=== PATIENT | male | born 1965 | race American Indian/Alaskan Native ===

== ENCOUNTER 2016-11-07 01:53 | Inpatient (IN) | payer OTHER ==
[2016-11-07 02:02] VITALS: BMI 19.3
[2016-11-07] MEDS ORDERED: Sodium Chloride 0.9% 1,000 ML IV STA ×3 (02:04→07:24)
[2016-11-07] MEDS ORDERED: Pantoprazole 40 MG in Sodium Chloride 0.9% 100 ML IV STA (02:04)
[2016-11-07] MEDS ORDERED: Morphine 4 mg/ml ISec IVP STA ×2 (02:04→03:32)
--- NOTE | 2016-11-07 02:04 | ED PDOC ---
Arrival/HPI - General Time Seen by Provider: 11/07/16 01:57 Historian: Patient - History of Present Illness Narrative History of Present Illness (Text): 11/07/16 02:03 Rasta Delgado is a 50 year old male, whose past medical history includes pancreatitis, aortic dissection with repair, alcohol anuse, substance abuse, and hypertension, who presents to the ED complaining of LUQ abdominal pain for the past 3 days. Patient notes symptoms are consistent with previous episodes of pancreatitis and reports he last drank alcohol 3 days ago. Patient denies any fever, chills, chest pain, shortness of breath, nausea, vomiting, diarrhea, urinary symptoms, back pain, neck pain, headache, dizziness, or any other complaints. Time/Duration: < week (3 days) Symptom Onset: Gradual Symptom Course: Unchanged Activities at Onset: Rest, Light Context: Home Past Medical History - Provider Review Nursing Documentation Reviewed: Yes - Infectious Disease Hx of Infectious Diseases: None - Tetanus Immunization Tetanus Immunization: Unknown - Cardiac Hx Cardiac Disorders: Yes (AORTIC DISECTION) Hx Heart Murmur: Yes - Pulmonary Hx Respiratory Disorders: No Other/Comment: SMOKER - Neurological Hx Neurological Disorder: No - HEENT Hx HEENT Disorder: No - Renal Hx Renal Disorder: No - Endocrine/Metabolic Hx Endocrine Disorders: No - Hematological/Oncological Hx Blood Disorders: No Hx Cancer: No - Integumentary Hx Dermatological Disorder: No - Musculoskeletal/Rheumatological Hx Falls: No - Gastrointestinal Hx Pancreatitis: Yes - Genitourinary/Gynecological Hx Genitourinary Disorders: No - Psychiatric Hx Substance Use: Yes (HEROIN DAILY) - Past Surgical History Past Surgical History: No Previous - Surgical History Other/Comment: aneurysm in his chest December 2014 - Anesthesia Hx Anesthesia: Yes Hx Anesthesia Reactions: No - Suicidal Assessment Feels Threatened In Home Enviroment: No Family/Social History - Physician Review Nursing Documentation Reviewed: Yes Family/Social History: No Known Family HX Smoking Status: Heavy Smoker > 10 Cigarettes Daily Hx Alcohol Use: Yes (1 [place] DAILY) Hx Substance Use: Yes (HEROIN DAILY) Substance used: heroin Hx Substance Use Treatment: Yes Allergies/Home Meds Allergies/Adverse Reactions: Allergies No Known Allergies Allergy (Verified 08/31/15 18:29) Home Medications: Home Meds Medication Instructions Recorded Confirmed Folic Acid 1 mg PO DAILY 08/31/15 09/02/15 Review of Systems - Physician Review All systems were reviewed & negative as marked: Yes - Review of Systems Constitutional: Normal. absent: Fevers Eyes: Normal ENT: Normal Respiratory: Normal. absent: SOB, Cough Cardiovascular: Normal. absent: Chest Pain Gastrointestinal: Abdominal Pain Genitourinary Male: Normal. absent: Dysuria, Frequency, Hematuria, Urinary Output Changes Musculoskeletal: Normal. absent: Back Pain, Neck Pain Skin: Normal. absent: Rash Neurological: Normal. absent: Headache, Dizziness Endocrine: Normal Hemo/Lymphatic: Normal Psychiatric: Normal Physical Exam Vital Signs Reviewed: Yes Vital Signs Temp Pulse Resp BP Pulse Ox 11/07/16 09:38 98.2 F 97 H 18 153/84 H 98 11/07/16 05:53 107 H 17 145/70 97 11/07/16 02:04 98.6 F 102 H 20 146/47 L 95 Temperature: Afebrile Blood Pressure: Normal Pulse: Regular Respiratory Rate: Normal Appearance: Positive for: Well-Appearing, Non-Toxic, Comfortable Pain Distress: None Mental Status: Positive for: Alert and Oriented X 3 - Systems Exam Head: Present: Atraumatic, Normocephalic Pupils: Present: PERRL Extroacular Muscles: Present: EOMI Conjunctiva: Present: Normal Mouth: Present: Moist Mucous Membranes Neck: Present: Normal Range of Motion Respiratory/Chest: Present: Clear to Auscultation, Good Air Exchange. No: Respiratory Distress, Accessory Muscle Use Cardiovascular: Present: Regular Rate and Rhythm, Normal S1, S2. No: Murmurs Abdomen: Present: Tenderness (LUQ tenderness), Normal Bowel Sounds. No: Distention, Peritoneal Signs Back: Present: Normal Inspection Upper Extremity: Present: Normal Inspection. No: Cyanosis, Edema Lower Extremity: Present: Normal Inspection. No: Edema Neurological: Present: GCS=15, CN II-XII Intact, Speech Normal Skin: Present: Warm, Dry, Normal Color. No: Rashes Psychiatric: Present: Alert, Oriented x 3, Normal Insight, Normal Concentration Medical Decision Making ED Course and Treatment: 11/07/16 02:03 Impression: 50 year old male complaining of LUQ pain for 3 days. Plan: -- CT Abdomen and Pelvis w/o contrast -- EKG -- Labs, cardiac enzymes, amylase, lipase -- Urinalysis -- IV fluids -- Zofran -- Protonix -- Morphine -- Reassess and disposition Prior Visits: Notes and results from previous visits were reviewed. Progress Notes: 11/07/16 03:11 Reviewed labs, amylase: 313, lipase: 478. Reviewed radiology, CT Abdomen and Pelvis shows: 1. There has been a prior repair at the aortic root level of an ascending thoracic aortic aneurysm or dissection. 2. There is moderate perihepatic and mild perisplenic ascites. There is moderate pelvic ascites. This is abnormal although nonspecific. There is also mesenteric edema particularly in the left upper quadrant and near the splenic flexure of the colon. 3. Question mild rectal wall thickening versus underdistention. 4. There is wall thickening and pericolonic stranding and omental/mesenteric edema near the splenic flexure of the colon. This is most suggestive of a focal colitis. Please correlate clinically. 5. Abdominal aorta reveals moderate atherosclerotic calcification and there is a dissection of the mid and distal abdominal aorta which resolves at the level of the aortic bifurcation. This dissection begins below the takeoff of the superior mesenteric artery. This is most probably residual from 12/10/2014 at which time a type A aortic dissection involving the entire thoracic abdominal aorta was identified. Chronic residual dissection in the abdominal aorta was identified on 08/31/2015. 6. Additional incidental and/or chronic findings as described. 11/07/16 03:14 Case discussed with remote medical coder stone cutter, who is aware and agrees with plan. House doctor paged. 11/07/16 03:[address] Olsen, who is aware and agrees with plan. Accepts pt in to hospitalist service. Pt will go to [facility] observation for pancreatitis. Pt is no acute distress. Discussed results and hospital observation plan with pt , who is aware and verbalizes understanding. 11/07/16 03:45 Reviewed EKG, NSR at [address] bpm. Non-specific ST/T wave changes. 11/08/16 01:25 - Lab Interpretations Lab Results: 11/07/16 02:20 11/07/16 02:20 Lab Results 11/07/16 03:06: Procalcitonin 0.78 H 11/07/16 02:20: WBC 12.9 H D, RBC 4.71, Hgb 13.2 L, Hct 35.6 L, MCV 75.6 L, MCH 28.0, MCHC 37.1 H, RDW 16.1 H, Plt Count 302, MPV 9.4, Gran % 87.2 H, Lymph % ( Auto) 5.7 L, [place] % (Auto) 7.0 H, Eos % (Auto) 0.0 L, Baso % (Auto) 0.1, Gran # 11.25 H, Lymph # 0.7 L, [place] # 0.9 H, Eos # 0.0, Baso # 0.01, PT 13.9 H, INR 1.29 H, APTT 30.7, Sodium 131 L, Potassium 3.9, Chloride 85 L D, Carbon Dioxide 32, Anion Gap 18, BUN 12, Creatinine 0.7, Est GFR ( Amer) > 60, Est GFR ( Non-Af Amer) > 60, Random Glucose 151 H, Calcium 9.4, Total Bilirubin 1.1, AST 49, ALT 20, Alkaline Phosphatase 104, Lactate Dehydrogenase 558, Total Creatine Kinase 54, Troponin I 0.03 D, Total Protein 7.2, Albumin 3.3, Globulin 3.9, Albumin/Globulin Ratio 0.8 L, Amylase 313 H, Lipase 478 H I have reviewed the lab results: Yes - RAD Interpretation Narrative RAD Interpretations (Text): CT Abdomen and Pelvis shows: Lower thorax: There has been a prior repair at the aortic root level of an ascending thoracic aortic aneurysm or dissection. There is minimal bibasilar atelectasis. Visualized thoracic aorta is atherosclerotic and tortuous and mildly ectatic without brendan aneurysm. The visualized heart is not enlarged. ABDOMEN: Liver: There are no focal liver lesions present. Gallbladder and bile ducts: The gallbladder is contracted but otherwise normal. No calcified stones. No ductal dilation. Pancreas: The pancreas is normal. No ductal dilation. Spleen: The spleen is normal. Adrenals: The adrenal glands are normal. Kidneys and ureters: The kidneys are normal. No obstructing stones. No hydronephrosis. Stomach and bowel: Question mild rectal wall thickening versus underdistention. There is wall thickening and pericolonic stranding and omental/mesenteric edema near the splenic flexure of the colon. This is most suggestive of a focal colitis. Please correlate clinically. Stomach is decompressed. There is no evidence of intestinal obstruction. Appendix: No findings to suggest acute appendicitis. PELVIS: Bladder: Bladder is decompressed. No stones. Reproductive: The prostate gland and seminal vesicles are normal. ABDOMEN and PELVIS: Intraperitoneal space: There is moderate perihepatic and mild perisplenic ascites. There is moderate pelvic ascites. This is abnormal although nonspecific. There is also mesenteric edema particularly in the left upper quadrant and near the splenic flexure of the colon. There is no free intraperitoneal air. Bones/joints: There are sternal wires consistent with previous sternotomy incision. There are mild degenerative changes present. There is mild diffuse osteopenia. There is grade 2 anterolisthesis of L5 on S1 with bilateral spondylolyses. No acute fracture. No dislocation. Soft tissues: Unremarkable. Vasculature: Abdominal aorta reveals moderate atherosclerotic calcification and there is a dissection of the mid and distal abdominal aorta which resolves at the level of the aortic bifurcation. This dissection begins below the takeoff of the superior mesenteric artery. This is most probably residual from 12/10/2014 at which time a type A aortic dissection involving the entire thoracic abdominal aorta was identified. Chronic residual dissection in the abdominal aorta was identified on 08/31/2015. Lymph nodes: There is no evidence of lymphadenopathy. IMPRESSION: 1. There has been a prior repair at the aortic root level of an ascending thoracic aortic aneurysm or dissection. 2. There is moderate perihepatic and mild perisplenic ascites. There is moderate pelvic ascites. This is abnormal although nonspecific. There is also mesenteric edema particularly in the left upper quadrant and near the splenic flexure of the colon. 3. Question mild rectal wall thickening versus underdistention. 4. There is wall thickening and pericolonic stranding and omental/mesenteric edema near the splenic flexure of the colon. This is most suggestive of a focal colitis. Please correlate clinically. 5. Abdominal aorta reveals moderate atherosclerotic calcification and there is a dissection of the mid and distal abdominal aorta which resolves at the level of the aortic bifurcation. This dissection begins below the takeoff of the superior mesenteric artery. This is most probably residual from 12/10/2014 at which time a type A aortic dissection involving the entire thoracic abdominal aorta was identified. Chronic residual dissection in the abdominal aorta was identified on 08/31/2015. 6. Additional incidental and/or chronic findings as described. 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 - Medication Orders Current Medication Orders: Metronidazole (Flagyl) 100 mls @ 100 mls/hr IVPB Q8 CESAR PRN Reason: Protocol Last Admin: 11/07/16 22:53 Dose: 100 MLS/HR eMAR Start Stop Document 11/07/16 22:53 EQ (Rec: 11/07/16 22:53 EQ [id number]) Intravenous Solution Start Date 11/07/16 Start Time 22:53 Ceftriaxone Sodium (Rocephin 1 Gram Ivpb) 100 mls @ 100 mls/hr IVPB DAILY CESAR PRN Reason: Protocol Last Admin: 11/07/16 14:58 Dose: 100 MLS/HR eMAR Start Stop Document 11/07/16 14:58 EQ (Rec: 11/07/16 14:58 EQ [id number]) Intravenous Solution Start Date 11/07/16 Start Time 14:58 Sodium Chloride (Sodium Chloride 0.9%) 1,000 mls @ 150 mls/hr IV .Q6H40M [facility] Last Admin: 11/07/16 22:54 Dose: 150 MLS/HR eMAR Start Stop Document 11/07/16 22:54 EQ (Rec: 11/07/16 22:54 EQ [id number]) Intravenous Solution Start Date 11/07/16 Start Time 22:54 Labetalol HCl (Trandate) 5 mg IV Q6 PRN PRN Reason: Systolic Blood Pressure Morphine Sulfate (Morphine) 2 mg IVP Q4 PRN PRN Reason: Pain, moderate (4-7) Last Admin: 11/07/16 16:44 Dose: 2 MG [facility] Pain Assessment Document 11/07/16 16:44 CHART (Rec: 11/07/16 16:45 CHART [id number]) Pain Reassessment Is this a pain reassessment? No Sleep Is patient sleeping during reassessment? No Presence of Pain Presence of Pain Yes Pain Scale Used Pain Scale Used Numeric Location Upper or Lower Lower Pain Location Body Site Back Description Description Intermittent Intensity of Pain at present 8 Pain Behavior Irritability Alleviating Factors/Management Medication Techniques Alleviating Factors Medication IVP Administration Document 11/07/16 16:44 CHART (Rec: 11/07/16 16:45 CHART [id number]) Charges for Administration # of IVP Administrations 1 Re-Assess: JONNY Pain Assessment Document 11/07/16 17:44 CHART (Rec: 11/07/16 17:45 CHART [id number]) Pain Reassessment Is this a pain reassessment? Yes Sleep Is patient sleeping during reassessment? No Presence of Pain Presence of Pain Yes Location Upper or Lower Lower Pain Location Body Site Back Description Description Constant Effects of Pain patient reports minimal change in pain level Ondansetron HCl (Zofran Inj) 4 mg IVP Q4 PRN PRN Reason: Nausea/Vomiting Last Admin: 11/07/16 17:46 Dose: 4 MG IVP Administration Document 11/07/16 17:46 CHART (Rec: 11/07/16 17:[id number]) Charges for Administration # of IVP Administrations 1 Pantoprazole Sodium (Protonix Inj) 40 mg IVP BID [facility] Last Admin: 11/07/16 17:45 Dose: 40 MG IVP Administration Document 11/07/16 17:45 CHART (Rec: 11/07/16 17:[id number]) Charges for Administration # of IVP Administrations 1 Thiamine HCl (Vitamin B1 Tab) 100 mg PO DAILY [facility] Last Admin: 11/07/16 13:30 Dose: 100 MG Discontinued Medications Enoxaparin Sodium (Lovenox) 40 mg SC DAILY [facility] PRN Reason: Protocol Last Admin: 11/07/16 10:42 Dose: 40 MG Subcutaneous Administrations Document 11/07/16 10:42 SZA (Rec: 11/07/16 10:42 SZA [id number]) Injection Site MAR Injection Site Right Abdomen Charges for Administration # of Subcutaneous Administrations 1 Hydromorphone HCl (Dilaudid) 1 mg IVP STAT STA Stop: 11/07/16 06:11 Last Admin: 11/07/16 06:24 Dose: 1 MG IVP Administration Document 11/07/16 06:24 RD (Rec: 11/07/16 06:24 RD [id number]) Charges for Administration # of IVP Administrations 1 Sodium Chloride (Sodium Chloride 0.9%) 1,000 mls @ 100 mls/hr IV .Q10H STA Stop: 11/07/16 12:03 Last Admin: 11/07/16 02:20 Dose: 100 MLS/HR eMAR Start Stop Document 11/07/16 02:20 RD (Rec: 11/07/16 02:20 RD [id number]) Intravenous Solution Start Date 11/07/16 Start Time 02:20 End Date 11/07/16 End time 03:58 Total Infusion Time 98 Pantoprazole Sodium 40 mg/ (Sodium Chloride) 100 mls @ 400 mls/hr IV STAT STA Stop: 11/07/16 02:18 Last Admin: 11/07/16 02:25 Dose: 400 MLS/HR eMAR Start Stop Document 11/07/16 02:25 RD (Rec: 11/07/16 02:25 RD [id number]) Intravenous Solution Start Date 11/07/16 Start Time 02:25 End Date 11/07/16 End time 02:40 Total Infusion Time 15 Sodium Chloride (Sodium Chloride 0.9%) 1,000 mls @ 125 mls/hr IV .Q8H STA Stop: 11/07/16 10:03 Last Admin: 11/07/16 03:59 Dose: 125 MLS/HR eMAR Start Stop Document 11/07/16 03:59 RD (Rec: 11/07/16 03:59 RD [id number]) Intravenous Solution Start Date 11/07/16 Start Time 03:59 Ciprofloxacin (Cipro 400mg/200ml Dsw) 200 mls @ 133.3 mls/hr IVPB Q12 CESAR PRN Reason: Protocol Stop: 11/07/16 11:31 Last Admin: 11/07/16 10:41 Dose: 133.3 MLS/HR eMAR Start Stop Document 11/07/16 10:41 SZA (Rec: 11/07/16 10:42 SZA [id number]) Intravenous Solution Start Date 11/07/16 Start Time 10:41 End Date 11/07/16 End time 12:15 Total Infusion Time 94 Sodium Chloride (Sodium Chloride 0.9%) 1,000 mls @ 200 mls/hr IV .Q5H STA Stop: 11/07/16 08:47 Last Admin: 11/07/16 07:25 Dose: 200 MLS/HR eMAR Start Stop Document 11/07/16 07:25 RD (Rec: 11/07/16 07:25 RD [id number]) Intravenous Solution Start Date 11/07/16 Start Time 07:25 Potassium Chloride (Potassium Chloride 20 Meq/100 Ml) 100 mls @ 50 mls/hr IVPB ONCE ONE Stop: 11/07/16 14:01 Last Admin: 11/07/16 13:24 Dose: 50 MLS/HR eMAR Start Stop Document 11/07/16 13:24 CHART (Rec: 11/07/16 13:24 CHART [id number]) Intravenous Solution Start Date 11/07/16 Start Time 13:24 End Date 11/07/16 End time 15:24 Total Infusion Time 120 Morphine Sulfate (Morphine) 4 mg IVP STAT STA Stop: 11/07/16 02:05 Last Admin: 11/07/16 02:24 Dose: 4 MG MAR Pain Assessment Document 11/07/16 02:24 RD (Rec: 11/07/16 02:25 RD [id number]) Pain Reassessment Is this a pain reassessment? No Sleep Is patient sleeping during reassessment? No Presence of Pain Presence of Pain Yes Pain Scale Used Pain Scale Used Numeric IVP Administration Document 11/07/16 02:24 RD (Rec: 11/07/16 02:25 RD [id number]) Charges for Administration # of IVP Administrations 1 Morphine Sulfate (Morphine) 4 mg IVP STAT STA Stop: 11/07/16 03:33 Last Admin: 11/07/16 03:47 Dose: 4 MG MAR Pain Assessment Document 11/07/16 03:47 RD (Rec: 11/07/16 03:47 RD [id number]) Pain Reassessment Is this a pain reassessment? No Sleep Is patient sleeping during reassessment? No Presence of Pain Presence of Pain Yes IVP Administration Document 11/07/16 03:47 RD (Rec: 11/07/16 03:47 RD [id number]) Charges for Administration # of IVP Administrations 1 Morphine Sulfate (Morphine) 4 mg IVP Q6 PRN PRN Reason: Pain, moderate (4-7) Morphine Sulfate (Morphine) 2 mg IVP Q4 CESAR Last Admin: 11/07/16 03:59 Dose: Ondansetron HCl (Zofran Inj) 4 mg IVP STAT STA Stop: 11/07/16 02:05 Last Admin: 11/07/16 02:25 Dose: 4 MG IVP Administration Document 11/07/16 02:25 RD (Rec: 11/07/16 02:25 RD [id number]) Charges for Administration # of IVP Administrations 1 Pantoprazole Sodium (Protonix Inj) Confirm Administered Dose 40 mg .ROUTE .STK- MED ONE Stop: 11/07/16 02:19 Last Admin: 11/07/16 02:20 Dose: 40 MG Pantoprazole Sodium (Protonix Inj) 40 mg IVP DAILY CESAR Last Admin: 11/07/16 10:42 Dose: 40 MG IVP Administration Document 11/07/16 10:42 ANICETO (Rec: 11/07/16 10:42 SZHelen [id number]) Charges for Administration # of IVP Administrations 1 - Scribe Statement The provider has reviewed the documentation as recorded by the Adrien Gamboa Provider Attestation: All medical record entries made by the Timmyibcatherine were at my direction and personally dictated by me. I have reviewed the chart and agree that the record accurately reflects my personal performance of the history, physical exam, medical decision making, and the department course for this patient. I have also personally directed, reviewed, and agree with the discharge instructions and disposition. Disposition/Present on Arrival - Present on Arrival Any Indicators Present on Arrival: No History of DVT/PE: No History of Uncontrolled Diabetes: No Urinary Catheter: No History Surgical Site Infection Following: None - Disposition Have Diagnosis and Disposition been Completed?: Yes Diagnosis: Pancreatitis Disposition: HOSPITALIZED Disposition Time: 03:15 Condition: FAIR
[2016-11-07 02:26] LABS: ADD MANUAL DIFF? NO
[2016-11-07 02:30] LABS: BASO # 0.01 K/mm3 (0.0-2.0); BASO % 0.1 % (0.0-3.0); GRAN # 11.25 (1.4-6.5); GRAN % 87.2 % (50.0-68.0); HEMATOCRIT 35.6 % (42.0-52.0); LYMPH # 0.7 (1.2-3.4); LYMPH % 5.7 % (22.0-35.0); MEAN CELL VOLUME 75.6 fL (80.0-105.0); MEAN CORPUSCULAR HGB CONC 37.1 g/dl (31.0-37.0); MEAN PLATELET VOLUME 9.4 fl (7.0-11.0); MONO # 0.9 (0.1-0.6); PLATELET COUNT 302 10^3/uL (120.0-450.0); RED CELL DISTRIBUTION WIDTH 16.1 % (11.5-14.5)
[2016-11-07 02:46] LABS: ALB/GLOB RATIO 0.8 (1.1-1.8); ALKALINE PHOSPHATASE 104 U/L (38-133); ALT/SGPT 20 U/L (7-56); AMYLASE 313 U/L (35-125); AST/SGOT 49 U/L (15-59); BILIRUBIN,TOTAL 1.1 mg/dL (0.2-1.3); BLOOD UREA NITROGEN 12 mg/dL (7-21); CALCIUM 9.4 mg/dL (8.4-10.5); CARBON DIOXIDE 32 mmol/L (21-33); CHLORIDE 85 mmol/L (98-107); GFR AFRICAN-AMERICAN > 60; GLUCOSE,RANDOM 151 mg/dL (70-110); LIPASE 478 U/L (23-300); POTASSIUM 3.9 mmol/L (3.6-5.0); SODIUM 131 mmol/L (132-148); TOTAL PROTEIN 7.2 g/dL (5.8-8.3)
[2016-11-07 02:54] LABS: TROPONIN I 0.03 ng/mL
[2016-11-07 02:56] LABS: INR 1.29 (0.93-1.08); PARTIAL THROMBOPLASTIN TIME 30.7 Seconds (23.7-30.8)
[2016-11-07 03:03] LABS: WHITE BLOOD COUNT 12.9 10^3/ul (4.5-11.0)
--- NOTE | 2016-11-07 03:06 | CT ---
EXAM: CT Abdomen and Pelvis Without Intravenous Contrast CLINICAL HISTORY: 50 years old, male; Pain; Abdominal pain; Generalized; Additional info: Abd pain TECHNIQUE: Axial computed tomography images of the abdomen and pelvis without intravenous contrast. This CT exam was performed using one or more of the following dose reduction techniques: automated exposure control, adjustment of the mA and/or kV according to patient size, and/or use of iterative reconstruction technique. Coronal and sagittal reformatted images were created and reviewed. COMPARISON: No relevant prior studies available. FINDINGS: Lower thorax: There has been a prior repair at the aortic root level of an ascending thoracic aortic aneurysm or dissection. There is minimal bibasilar atelectasis. Visualized thoracic aorta is atherosclerotic and tortuous and mildly ectatic without brendan aneurysm. The visualized heart is not enlarged. ABDOMEN: Liver: There are no focal liver lesions present. Gallbladder and bile ducts: The gallbladder is contracted but otherwise normal. No calcified stones. No ductal dilation. Pancreas: The pancreas is normal. No ductal dilation. Spleen: The spleen is normal. Adrenals: The adrenal glands are normal. Kidneys and ureters: The kidneys are normal. No obstructing stones. No hydronephrosis. Stomach and bowel: Question mild rectal wall thickening versus underdistention. There is wall thickening and pericolonic stranding and omental/mesenteric edema near the splenic flexure of the colon. This is most suggestive of a focal colitis. Please correlate clinically. Stomach is decompressed. There is no evidence of intestinal obstruction. Appendix: No findings to suggest acute appendicitis. PELVIS: Bladder: Bladder is decompressed. No stones. Reproductive: The prostate gland and seminal vesicles are normal. ABDOMEN and PELVIS: Intraperitoneal space: There is moderate perihepatic and mild perisplenic ascites. There is moderate pelvic ascites. This is abnormal although nonspecific. There is also mesenteric edema particularly in the left upper quadrant and near the splenic flexure of the colon. There is no free intraperitoneal air. Bones/joints: There are sternal wires consistent with previous sternotomy incision. There are mild degenerative changes present. There is mild diffuse osteopenia. There is grade 2 anterolisthesis of L5 on S1 with bilateral spondylolyses. No acute fracture. No dislocation. Soft tissues: Unremarkable. Vasculature: Abdominal aorta reveals moderate atherosclerotic calcification and there is a dissection of the mid and distal abdominal aorta which resolves at the level of the aortic bifurcation. This dissection begins below the takeoff of the superior mesenteric artery. This is most probably residual from 12/10/2014 at which time a type A aortic dissection involving the entire thoracic abdominal aorta was identified. Chronic residual dissection in the abdominal aorta was identified on 08/31/2015. Lymph nodes: There is no evidence of lymphadenopathy. IMPRESSION: 1. There has been a prior repair at the aortic root level of an ascending thoracic aortic aneurysm or dissection. 2. There is moderate perihepatic and mild perisplenic ascites. There is moderate pelvic ascites. This is abnormal although nonspecific. There is also mesenteric edema particularly in the left upper quadrant and near the splenic flexure of the colon. 3. Question mild rectal wall thickening versus underdistention. 4. There is wall thickening and pericolonic stranding and omental/mesenteric edema near the splenic flexure of the colon. This is most suggestive of a focal colitis. Please correlate clinically. 5. Abdominal aorta reveals moderate atherosclerotic calcification and there is a dissection of the mid and distal abdominal aorta which resolves at the level of the aortic bifurcation. This dissection begins below the takeoff of the superior mesenteric artery. This is most probably residual from 12/10/2014 at which time a type A aortic dissection involving the entire thoracic abdominal aorta was identified. Chronic residual dissection in the abdominal aorta was identified on 08/31/2015. 6. Additional incidental and/or chronic findings as described.
[2016-11-07] MEDS ORDERED: Morphine 4 mg/ml ISec IVP PRN (03:34)
[2016-11-07] MEDS ORDERED: Labetalol 5 mg/ml Inj 20ML IV PRN (03:49)
--- NOTE | 2016-11-07 03:55 | CP.PCM.HP ---
<Cristopher Damon - Last Filed: 11/07/16 03:50> History of Present Illness - History of Present Illness History of Present Illness: This is a 50 yo male with pmh alcoholism, pancreatitis and thoracic aneurysm presenting with abdominal pain x 2 day. Pt began suddenly 2 days ago while pt was lying in bed. It has happened before and the pt was dx with pancreatitis. Cannot say last time. Pain was in lower abdomen, sometimes going to epigastric region. It radiates to back. 05/16, getting worse. Burning sensation. Did not take any meds at home. It is constant. Nothing makes it better or worse. Denies fevers, chills. Reports multiple episodes of vomiting, non bloody, non bilious. Yellowish in color. Reports one episode of non bloody diarrhea. Denies urinary sx, bloody BMs. No recent travel, no sick contacts. PMH: Pancreatitis, alcoholism, thoracic aneurysm, HLD PSH: aneurysm repair 2014 Allergies: NKDA Home meds: metoprolol, folic acid, asa, atorvastatin FH: denies Social hx: 1 ppd/27 yrs. 1 pint of erika each day for 20 yrs. Past heroin user. Lives with parents in . Present on Admission - Present on Admission Any Indicators Present on Admission: No History of DVT/PE: No History of Uncontrolled Diabetes: No Urinary Catheter: No Decubitus Ulcer Present: No Review of Systems - Review of Systems All systems: reviewed and no additional remarkable complaints except Review of Systems: Negative except as stated in HPI. Past Patient History - Infectious Disease Hx of Infectious Diseases: None - Tetanus Immunizations Tetanus Immunization: Unknown - Past Medical History & Family History Past Medical History?: Yes Past Family History: Reviewed and not pertinent - Past Social History Smoking Status: Heavy Smoker > 10 Cigarettes Daily Chewing Tobacco Use: No Cigar Use: No Alcohol: > 2 Drinks/Day Home Situation {Lives}: With Family Domestic Violence: Negative - CARDIAC Hx Cardiac Disorders: Yes (AORTIC DISECTION) Hx Heart Murmur: Yes - PULMONARY Hx Respiratory Disorders: No Other/Comment: SMOKER - NEUROLOGICAL Hx Neurological Disorder: No - HEENT Hx HEENT Problems: No - RENAL Hx Chronic Kidney Disease: No - ENDOCRINE/METABOLIC Hx Endocrine Disorders: No - HEMATOLOGICAL/ONCOLOGICAL Hx Blood Disorders: No Hx Cancer: No - INTEGUMENTARY Hx Dermatological Problems: No - MUSCULOSKELETAL/RHEUMATOLOGICAL Hx Falls: No - GASTROINTESTINAL Hx Pancreatitis: Yes - GENITOURINARY/GYNECOLOGICAL Hx Genitourinary Disorders: No - PSYCHIATRIC Hx Substance Use: Yes (HEROIN DAILY) - SURGICAL HISTORY Other/Comment: aneurysm in his chest December 2014 - ANESTHESIA Hx Anesthesia: Yes Hx Anesthesia Reactions: No Meds Allergies/Adverse Reactions: Allergies Allergy/AdvReac Type Severity Reaction Status Date / Time No Known Allergies Allergy Verified 08/31/15 18:29 Physical Exam - Constitutional Appears: Non-toxic, In Acute Distress - Head Exam Head Exam: ATRAUMATIC, NORMAL INSPECTION, NORMOCEPHALIC - Eye Exam Eye Exam: EOMI - ENT Exam ENT Exam: Mucous Membranes Moist - Neck Exam Neck exam: Positive for: Normal Inspection - Respiratory Exam Respiratory Exam: Clear to Auscultation Bilateral, NORMAL BREATHING PATTERN - Cardiovascular Exam Cardiovascular Exam: REGULAR RHYTHM, +S1, +S2 - GI/Abdominal Exam GI & Abdominal Exam: Guarding, Soft, Tenderness Additional comments: Severe tenderness all 4 quadrants - Extremities Exam Extremities exam: Positive for: normal inspection - Back Exam Back exam: NORMAL INSPECTION - Neurological Exam Neurological exam: Alert, Oriented x3 - Psychiatric Exam Psychiatric exam: Normal Affect, Normal Mood - Skin Skin Exam: Dry, Intact, Normal Color, Warm Results - Vital Signs Recent Vital Signs: Last Vital Signs Temp 98.6 F 11/07/16 02:04 Pulse 102 H 11/07/16 02:04 Resp 20 11/07/16 02:04 BP 146/47 L 11/07/16 02:04 Pulse Ox 95 11/07/16 02:04 - Labs Result Diagrams: 11/07/16 02:20 11/07/16 02:20 Labs: Laboratory Results - last 24 hr 11/07/16 02:20 WBC 12.9 H D RBC 4.71 Hgb 13.2 L Hct 35.6 L MCV 75.6 L MCH 28.0 MCHC 37.1 H RDW 16.1 H Plt Count 302 MPV 9.4 Gran % 87.2 H Lymph % (Auto) 5.7 L [place] % (Auto) 7.0 H Eos % (Auto) 0.0 L Baso % (Auto) 0.1 Gran # 11.25 H Lymph # 0.7 L [place] # 0.9 H Eos # 0.0 Baso # 0.01 PT 13.9 H INR 1.29 H APTT 30.7 Sodium 131 L Potassium 3.9 Chloride 85 L D Carbon Dioxide 32 Anion Gap 18 BUN 12 Creatinine 0.7 Est GFR ( Amer) > 60 Est GFR (Non-Af Amer) > 60 Random Glucose 151 H Calcium 9.4 Total Bilirubin 1.1 AST 49 ALT 20 Alkaline Phosphatase 104 Lactate Dehydrogenase 558 Total Creatine Kinase 54 Troponin I 0.03 D Total Protein 7.2 Albumin 3.3 Globulin 3.9 Albumin/Globulin Ratio 0.8 L Amylase 313 H Lipase 478 H Assessment & Plan - Assessment and Plan (Free Text) Assessment: This is a 50 yo male with past medical hx of pancreatitis, alcoholism, thoracic aneurysm presenting with abdominal pain x 2 days 1. Acute pancreatitis -NPO -CT abdomen pelvis shows focal colitis as well as ascites and chronic residual dissection of abdominal aneurysm -NS at 125 cc/hr -2 q 4 morphine prn -zofran prn -admit to telemetry bed 2. Hx of HTN -hold PO metoprolol -PRN labetalol 5 IV q 6, prn SBP >165 3. Hx of thoracic/abdominal aneurysm -sx consult. recs appreciated -continue to monitor 4. focal colitis on CT/elevated white count -flagyl 500 q 8 -cipro 400 q 12 -blood/urine/stool cultures -stool c diff -serum procal pending 5. Hx of HLD -hold home lipitor for now 6. GI/DVT ppx -lovenox daily -protonix daily dw Dr. Theodore <Africa Olsen - Last Filed: 11/07/16 06:28> Results - Vital Signs Recent Vital Signs: Last Vital Signs Temp 98.6 F 11/07/16 02:04 Pulse 107 H 11/07/16 05:53 Resp 17 11/07/16 05:53 BP 145/70 11/07/16 05:53 Pulse Ox 97 11/07/16 05:53 - Labs Result Diagrams: 11/07/16 02:20 11/07/16 02:20 Labs: Laboratory Results - last 24 hr 11/07/16 05:00 Urine Color Yellow Urine Appearance Slight-cloudy Urine pH 6.0 Ur Specific [place] >= 1.030 Urine Protein 100 H Urine Glucose (UA) Negative Urine Ketones >=80 Urine Blood Trace-lysed H Urine Nitrate Negative Urine Bilirubin Moderate H Urine Urobilinogen 1.0 H Ur Leukocyte Esterase Negative Urine RBC 0 - 2 Urine WBC 0 - 2 Ur Epithelial Cells 0 - 2 Urine Bacteria Rare Urine Other Usperm Attending/Attestation - Attestation I have personally seen and examined this patient.: Yes I have fully participated in the care of the patient.: Yes I have reviewed all pertinent clinical information: Yes Notes (Text): 11/07/16 06:26 Patient was seen when he was in bed # 13 in the ER. Agree with history ,physical examination, assessment and plan. Gives history of HTN, heroine abuse, last heroine use 8 months ago, denies IVDA.
[2016-11-07] MEDS ORDERED: Morphine 4 mg/ml ISec IVP SCH (04:00)
[2016-11-07 05:35] LABS: URINE BILIRUBIN MODERATE (NEGATIVE); URINE BLOOD TRACE-LYSED (NEGATIVE); URINE GLUCOSE (UA) NEGATIVE (NEGATIVE); URINE KETONE >=80 mg/dL (NEGATIVE); URINE LEUKOCYTE ESTERASE NEGATIVE Leu/uL (NEGATIVE); URINE PROTEIN 100 mg/dL (<30 mg/dL)
[2016-11-07] MEDS: metroNIDAZOLE IV 500 mg/100 ml 100 ML IVPB SCH ×3 (05:41→22:53)
[2016-11-07 05:42] LABS: URINE COLOR YELLOW (YELLOW)
[2016-11-07 05:43] LABS: URINE APPEARANCE SLIGHT-CLOUDY (CLEAR)
[2016-11-07 05:48] LABS: URINE BACTERIA RARE (NEG); URINE EPITHELIAL CELLS 0 - 2 /hpf (0-5); URINE RBC 0 - 2 /hpf (0-2); URINE WBC 0 - 2 /hpf (0-6)
[2016-11-07] MEDS: Morphine 2 mg/ml ISec IVP PRN ×2 (05:53→16:44)
[2016-11-07] MEDS ORDERED: HYDROmorphone 1 mg/ml ISec IVP STA (06:10)
[2016-11-07 06:34] LABS: ALB/GLOB RATIO 0.9 (1.1-1.8); ALKALINE PHOSPHATASE 90 U/L (38-133); ALT/SGPT 31 U/L (7-56); AST/SGOT 37 U/L (15-59); BILIRUBIN,TOTAL 0.8 mg/dL (0.2-1.3); BLOOD UREA NITROGEN 11 mg/dL (7-21); CALCIUM 8.7 mg/dL (8.4-10.5); CARBON DIOXIDE 30 mmol/L (21-33); CHLORIDE 90 mmol/L (95-110); CHOLESTEROL 91 mg/dL (130-200); GFR AFRICAN-AMERICAN > 60; GLUCOSE,RANDOM 109 mg/dL (70-110); MAGNESIUM 2.1 mg/dL (1.7-2.2); POTASSIUM 3.3 mmol/L (3.6-5.0); SODIUM 132 mmol/L (132-148); TOTAL PROTEIN 6.4 g/dL (5.8-8.3)
[2016-11-07 07:11] LABS: ADD MANUAL DIFF? NO
[2016-11-07 07:14] LABS: IRON < 10 ug/dL (45-180)
[2016-11-07 07:19] LABS: BASO # 0.01 K/mm3 (0.0-2.0); BASO % 0.1 % (0.0-3.0); GRAN # 10.22 (1.4-6.5); HEMATOCRIT 31.3 % (42.0-52.0); LYMPH # 0.7 (1.2-3.4); MEAN CELL VOLUME 75.1 fL (80.0-105.0); MEAN CORPUSCULAR HEMOGLOBIN 27.3 pg (25.0-35.0); MEAN CORPUSCULAR HGB CONC 36.4 g/dl (31.0-37.0); MEAN PLATELET VOLUME 9.7 fl (7.0-11.0); MONO # 1.2 (0.1-0.6); MONO % 9.9 % (1.0-6.0); PLATELET COUNT 256 10^3/uL (120.0-450.0); RED CELL DISTRIBUTION WIDTH 16.3 % (11.5-14.5); WHITE BLOOD COUNT 12.2 10^3/ul (4.5-11.0)
--- NOTE | 2016-11-07 07:27 | CP.PCM.CON ---
<SilvestreColin - Last Filed: 11/07/16 07:13> History of Present Illness - History of Present Illness History of Present Illness: Surgery consult for Dr. Marina Kankendrick Delgado is a 50 year old male, whose past medical history includes pancreatitis, aortic dissection with repair(2015 at [facility]), tabacco/ alcohol/substance abuse, and hypertension, who presents to the ED complaining of low abdominal pain for the past 3 days. Patient notes symptoms are consistent with previous episodes of pancreatitis and reports he last drank a pint of alcohol 3 days ago. He drinks a pint daily He smokes 1 pack a day for 20 years. Pt also reports anorexia/N/V since Monday and one episodes of diarrhea. Non bloody, non bilious. Patient denies any fever, chills, chest pain , shortness of breath,urinary symptoms, back pain, neck pain, headache, dizziness, hematemesis, hematochezia, hemoptesism, hjematuria or any other complaints. Pt reports he follows up with cardiothoracic surgeon at [facility] every 6 month. WBC 13, Lipase 500, CT abd shows residual chronic thoracic/ abdominal dissection that was shown in 08/2015. Thoracic anreurism 4cm. Ascites, Focal colitis on splenic flecture. Review of Systems - Review of Systems Review of Systems: See HPI - Constitutional Constitutional: absent: Chills, Fatigue, Fever - EENT Ears: absent: Dizziness Nose/Mouth/Throat: absent: Hoarsness - Cardiovascular Cardiovascular: absent: Chest Pain, Chest Pain at Rest, Claudication, Dyspnea, Palpitations - Respiratory Respiratory: absent: Cough, Dyspnea, Hemoptysis, Dyspnea on Exertion - Gastrointestinal Gastrointestinal: Abdominal Pain, Change in Stool Character, Diarrhea, Loose Stools, Nausea, Vomiting. absent: Belching, Bloating, Coffee Ground Emesis, Dyspepsia, Dysphagia, Hematemesis, Melena, Odynophagia, Temesmus - Genitourinary Genitourinary: absent: Difficulty Urinating, Dysuria Past Patient History - Infectious Disease Hx of Infectious Diseases: None - Tetanus Immunizations Tetanus Immunization: Unknown - Past Medical History & Family History Past Medical History?: Yes Past Family History: Reviewed and not pertinent - Past Social History Smoking Status: Heavy Smoker > 10 Cigarettes Daily - CARDIAC Hx Cardiac Disorders: Yes (AORTIC DISECTION) Hx Heart Murmur: Yes - PULMONARY Hx Respiratory Disorders: No Other/Comment: SMOKER - NEUROLOGICAL Hx Neurological Disorder: No - HEENT Hx HEENT Problems: No - RENAL Hx Chronic Kidney Disease: No - ENDOCRINE/METABOLIC Hx Endocrine Disorders: No - HEMATOLOGICAL/ONCOLOGICAL Hx Blood Disorders: No Hx Cancer: No - INTEGUMENTARY Hx Dermatological Problems: No - MUSCULOSKELETAL/RHEUMATOLOGICAL Hx Falls: No - GASTROINTESTINAL Hx Pancreatitis: Yes - GENITOURINARY/GYNECOLOGICAL Hx Genitourinary Disorders: No - PSYCHIATRIC Hx Substance Use: Yes (HEROIN DAILY) - SURGICAL HISTORY Other/Comment: aneurysm in his chest December 2014 - ANESTHESIA Hx Anesthesia: Yes Hx Anesthesia Reactions: No Meds Allergies/Adverse Reactions: Allergies Allergy/AdvReac Type Severity Reaction Status Date / Time No Known Allergies Allergy Verified 08/31/15 18:29 - Medications Medications: Current Medications Enoxaparin Sodium (Lovenox) 40 mg SC DAILY [facility] PRN Reason: Protocol Sodium Chloride (Sodium Chloride 0.9%) 1,000 mls @ 125 mls/hr IV .Q8H STA Stop: 11/07/16 10:03 Last Admin: 11/07/16 03:59 Dose: 125 mls/hr Metronidazole (Flagyl) 100 mls @ 100 mls/hr IVPB Q8 [facility] PRN Reason: Protocol Last Admin: 11/07/16 05:41 Dose: 100 mls/hr Ciprofloxacin (Cipro 400mg/200ml Dsw) 200 mls @ 133.3 mls/hr IVPB Q12 [facility] PRN Reason: Protocol Stop: 11/07/16 11:31 Labetalol HCl (Trandate) 5 mg IV Q6 PRN PRN Reason: Systolic Blood Pressure Morphine Sulfate (Morphine) 2 mg IVP Q4 PRN PRN Reason: Pain, moderate (4-7) Last Admin: 11/07/16 05:53 Dose: 2 mg Ondansetron HCl (Zofran Inj) 4 mg IVP Q4 PRN PRN Reason: Nausea/Vomiting Last Admin: 11/07/16 06:14 Dose: 4 mg Pantoprazole Sodium (Protonix Inj) 40 mg IVP DAILY [facility] Physical Exam - Constitutional Appears: Chronically Ill - Head Exam Head Exam: ATRAUMATIC, NORMAL INSPECTION, NORMOCEPHALIC - Eye Exam Eye Exam: EOMI, Normal appearance, PERRL Pupil Exam: NORMAL ACCOMODATION, PERRL - ENT Exam ENT Exam: Mucous Membranes Moist, Normal Exam - Neck Exam Neck exam: Positive for: Normal Inspection - Respiratory Exam Respiratory Exam: Clear to Auscultation Bilateral, NORMAL BREATHING PATTERN. absent: Accessory Muscle Use, Respiratory Distress - Cardiovascular Exam Cardiovascular Exam: REGULAR RHYTHM, +S1, +S2 - GI/Abdominal Exam GI & Abdominal Exam: Normal Bowel Sounds, Soft, Tenderness. absent: Distended, Firm, Guarding, Hernia, Mass, Organomegaly, Pulsatile Mass, Rebound, Rigid Additional comments: Low abd TTP - Extremities Exam Extremities exam: Positive for: normal inspection - Back Exam Back exam: NORMAL INSPECTION - Neurological Exam Neurological exam: Alert, CN II-XII Intact, Normal Gait, Oriented x3, Reflexes Normal - Skin Skin Exam: Dry, Intact, Normal Color, Warm Results - Vital Signs Recent Vital Signs: Last Vital Signs Temp 98.6 F 11/07/16 02:04 Pulse 107 H 11/07/16 05:53 Resp 17 11/07/16 05:53 BP 145/70 11/07/16 05:53 Pulse Ox 97 11/07/16 05:53 - Labs Result Diagrams: 11/07/16 02:20 11/07/16 05:30 Labs: Laboratory Results - last 24 hr 11/07/16 11/07/16 05:00 05:30 Sodium 132 Potassium 3.3 L Chloride 90 L Carbon Dioxide 30 Anion Gap 15 BUN 11 Creatinine 0.5 Est GFR ( Amer) > 60 Est GFR (Non-Af Amer) > 60 Random Glucose 109 Calcium 8.7 Magnesium 2.1 Total Bilirubin 0.8 AST 37 ALT 31 Alkaline Phosphatase 90 Total Protein 6.4 Albumin 3.0 Globulin 3.5 Albumin/Globulin Ratio 0.9 L Triglycerides 49 Cholesterol 91 L LDL Cholesterol Direct 45 HDL Cholesterol 36 Urine Color Yellow Urine Appearance Slight-cloudy Urine pH 6.0 Ur Specific [place] >= 1.030 Urine Protein 100 H Urine Glucose (UA) Negative Urine Ketones >=80 Urine Blood Trace-lysed H Urine Nitrate Negative Urine Bilirubin Moderate H Urine Urobilinogen 1.0 H Ur Leukocyte Esterase Negative Urine RBC 0 - 2 Urine WBC 0 - 2 Ur Epithelial Cells 0 - 2 Urine Bacteria Rare Urine Other Usperm Assessment & Plan - Assessment and Plan (Free Text) Assessment: Pancreatitis, chronic residual aortic dissection, thoracic aneurism h/o thoracic dissection repair, colitis -Recommend thoracic surgery evaluation -F/U with Thoracic surgeon at [facility] upon discharge -NPO -IVF -Pain control -Serial abd exam -Smoking cessation -Recommend AA -We will continue to follow DW Dr. Gray <Finn Gray - Last Filed: 11/13/16 23:43> Meds - Medications Medications: Current Medications Acetaminophen (Tylenol 325mg Tab) 650 mg PO Q4H PRN PRN Reason: Fever >100.4 F Last Admin: 11/13/16 13:34 Dose: 650 mg Folic Acid (Folic Acid) 1 mg IVP DAILY [facility] Last Admin: 11/13/16 10:39 Dose: 1 mg Piperacillin Sod/Tazobactam Sod (Zosyn 3.375 In Ns 100ml) 100 mls @ 200 mls/hr IVPB Q6 [facility] PRN Reason: Protocol Stop: 11/18/16 08:01 Last Admin: 11/13/16 23:27 Dose: 200 mls/hr Multivitamins/Vitamin C 10 ml/Amino Acids/Electrolytes/Dextrose 2,010 mls @ 83 mls/hr IV .Q24H [facility] Stop: 11/15/16 17:59 Last Admin: 11/13/16 18:22 Dose: 83 mls/hr Fat Emulsion Intravenous (Intralipid 20%) 250 mls @ 21 mls/hr IV DAILY@1800 [facility] Stop: 11/15/16 05:55 Last Admin: 11/13/16 18:21 Dose: 21 mls/hr Sodium Chloride (Sodium Chloride 0.9%) 1,000 mls @ 75 mls/hr IV .[id number] [facility] Last Admin: 11/13/16 13:33 Dose: 75 mls/hr Ketorolac Tromethamine (Toradol) 15 mg IM Q8 PRN PRN Reason: Pain, Mild (1-3) Last Admin: 11/13/16 20:26 Dose: 15 mg Ondansetron HCl (Zofran Inj) 4 mg IVP Q4 PRN PRN Reason: Nausea/Vomiting Last Admin: 11/13/16 18:46 Dose: 4 mg Pantoprazole Sodium (Protonix Inj) 40 mg IVP BID [facility] Last Admin: 11/13/16 20:18 Dose: 40 mg Thiamine HCl (Vitamin B1 Tab) 100 mg PO DAILY [facility] Last Admin: 11/13/16 13:32 Dose: 100 mg Results - Vital Signs Recent Vital Signs: Last Vital Signs Temp 99 F 11/13/16 18:00 Pulse 83 11/13/16 22:00 Resp 20 11/13/16 18:00 BP 156/98 H 11/13/16 18:00 Pulse Ox 96 11/13/16 06:00 - Labs Result Diagrams: 11/13/16 08:50 11/13/16 08:50 Labs: Laboratory Results - last 24 hr 11/13/16 11/13/16 11/13/16 00:24 07:39 08:50 WBC 15.0 H D RBC 3.66 Hgb 10.0 L Hct 27.3 L MCV 74.6 L MCH 27.3 MCHC 36.6 RDW 15.5 H Plt Count 349 MPV 9.8 Gran % 80.6 H Lymph % (Auto) 9.5 L [place] % (Auto) 8.3 H Eos % (Auto) 1.3 L Baso % (Auto) 0.3 Gran # 12.06 H Lymph # 1.4 [place] # 1.2 H Eos # 0.2 Baso # 0.04 Sodium 135 Potassium 4.1 Chloride 100 Carbon Dioxide 31 Anion Gap 8 L BUN 10 Creatinine 0.5 Est GFR ( Amer) > 60 Est GFR (Non-Af Amer) > 60 POC Glucose (mg/dL) 108 124 H Random Glucose 112 H Calcium 8.0 L Phosphorus 3.9 Magnesium 1.9 Total Bilirubin 0.5 AST 44 ALT 32 Alkaline Phosphatase 260 H Total Protein 5.0 L Albumin 2.0 L Globulin 3.0 Albumin/Globulin Ratio 0.7 L Amylase 1127 H Lipase 646 H 11/13/16 11/13/16 12:05 21:26 WBC RBC Hgb Hct MCV MCH MCHC RDW Plt Count MPV Gran % Lymph % (Auto) [place] % (Auto) Eos % (Auto) Baso % (Auto) Gran # Lymph # [place] # Eos # Baso # Sodium Potassium Chloride Carbon Dioxide Anion Gap BUN Creatinine Est GFR ( Amer) Est GFR (Non-Af Amer) POC Glucose (mg/dL) 115 H 106 Random Glucose Calcium Phosphorus Magnesium Total Bilirubin AST ALT Alkaline Phosphatase Total Protein Albumin Globulin Albumin/Globulin Ratio Amylase Lipase Assessment & Plan - Assessment and Plan (Free Text) Assessment: Patient was seen and examined by me. I agree with assessment and plan as per resident's note. - Date & Time Date: 11/07/16 Time: 09:20
[2016-11-07] MEDS ORDERED: Ciprofloxacin 400mg/200ml D5W 200 ML IVPB SCH (10:00)
[2016-11-07] MEDS ORDERED: Enoxaparin 40 mg Syringe SC SCH (10:00)
[2016-11-07] MEDS ORDERED: Potassium Chloride 20 mEq 100 ML IVPB ONE (12:02)
--- NOTE | 2016-11-07 13:14 | CON ---
DATE: 11/07/2016 REASON FOR CONSULTATION: Abdominal pain and history of repair of thoracic aortic aneurysm. HISTORY OF PRESENT ILLNESS: The patient is a 50-year-old -[place] male who underwent a repai r of thoracic aortic aneurysm in 12/2014 at [facility]. The patient is an ETOH abus er, has a history of chronic pancreatitis. He presented because of abdominal pain, nausea and vomiti ng. The patient denies any substernal chest pain or upper back pain. SOCIAL HISTORY: The patient is a smoker, ETOH abuser. MEDICATIONS: IV Cipro 400 mg q. 12 hours, IV Flagyl 500 mg q. 8 hours, Lovenox 40 mg subcutaneously daily, morphine sulfate 2 mg intravenously q. 4 hours p.r.n., Protonix 40 mg intravenously daily, Lip itor 5 mg intravenously q. 6 hours p.r.n., Zofran 4 mg intravenously q. 4 hours p.r.n. PHYSICAL EXAMINATION: GENERAL: The patient is a middle-aged male who is uncomfortable because of abdominal pain. VITAL SIGNS: Blood pressure 153/84, heart rate 97, temperature 98.2, respirations 18. HEENT: Normocephalic. NECK: No JVD. CHEST: Clear. HEART: S1, S2 regular. ABDOMEN: Exquisitely tender, hypoactive bowel sounds. EXTREMITIES: No edema. LABORATORY DATA: Hemoglobin and hematocrit 11.4 and 31.3, white count, 12.2, platelet count 256,000. INR is 1.29, PTT 30.7. SMA-7: Sodium 132, potassium 3.3, chloride 90, CO2 30, glucose 109, BUN 11 , creatinine 0.5. Troponin 0.03, lipase is 478, amylase is 315. EKG revealed sinus rhythm, prolonged QT interval. Consider anterior ischemic ST-T wave changes. ABDOMEN AND PELVIS CT SCAN: 1. It is reported there has been a prior repair of aortic root level of an ascending thoracic aortic aneurysm or dissection. 2. Moderate perihepatic mild perisplenic ascites. There is moderate pelvic ascites. There is also mesenteric edema, particularly left upper quadrant near the splenic flexure. Questionable mild recta l wall thickening versus under distention. Abdominal aorta reveals moderate atherosclerotic calcific ation and there is a dissection of the mid and distal abdominal aorta which resolves at the level of the aortic bifurcation. The dissection begins below the takeoff of the superior mesenteric artery. This is most probably residual from 12/2014, at which time the aortic dissection involving the entire thoracic abdominal aorta was identified. Chronic aortic dissection of abdominal aorta was identifie d on 08/2015. ASSESSMENT: 1. Acute pancreatitis. 2. Residual chronic abdominal aortic dissection. 3. Status post repair of type A aortic dissection 2014. 4. Prolonged QT interval. 5. Ischemic ST-T wave changes. RECOMMENDATIONS: Continue current IV Cipro and IV Flagyl. Continue Trandate at 5 mg intravenously q . 6 hours. Discontinue Lovenox. Optimize hydration as well as pain management with p.r.n. morphine sulfate. Consider initiating thiamine as well as Librium if alcohol withdrawal signs are imminent. Start potassium chloride intravenous replacement. Keep the patient n.p.o. Celso Moran MD cc: [id number] TT: 11/07/2016 13:13:29 Confirmation # [id number] Dictation # [id number]
[2016-11-07] MEDS: cefTRIAXone 1 gm 100 ML IVPB SCH (14:58)
[2016-11-07] MEDS: Sodium Chloride 0.9% 1,000 ML IV SCH ×2 (16:21→22:54)
--- NOTE | 2016-11-07 18:59 | CARD ---
APPROVED REPORT EKG Measurement Heart [id number] VT P49 [id number] <Conclusion> Atrial flutter with 3:1 AV conduction T wave abnormality, consider inferior ischemia T wave abnormality, consider anterior ischemia Abnormal ECG
--- NOTE | 2016-11-07 19:01 | CARD ---
APPROVED REPORT EKG Measurement Heart [id number] CT [id number] [id number] <Conclusion> Normal sinus rhythm Possible Left atrial enlargement ST & T wave abnormality, consider anterior ischemia Prolonged QT Abnormal ECG
[2016-11-08] MEDS: Morphine 2 mg/ml ISec IVP PRN ×2 (01:30→05:41)
[2016-11-08] MEDS: Sodium Chloride 0.9% 1,000 ML IV SCH ×4 (04:10→18:55)
[2016-11-08] MEDS: metroNIDAZOLE IV 500 mg/100 ml 100 ML IVPB SCH ×3 (05:41→21:07)
[2016-11-08 07:47] LABS: ADD MANUAL DIFF? NO
[2016-11-08 07:58] LABS: GRAN # 8.98 (1.4-6.5); GRAN % 85.9 % (50.0-68.0); HEMATOCRIT 31.4 % (42.0-52.0); LYMPH # 0.8 (1.2-3.4); LYMPH % 7.3 % (22.0-35.0); MEAN CELL VOLUME 75.7 fL (80.0-105.0); MEAN CORPUSCULAR HEMOGLOBIN 26.7 pg (25.0-35.0); MEAN CORPUSCULAR HGB CONC 35.4 g/dl (31.0-37.0); MEAN PLATELET VOLUME 9.7 fl (7.0-11.0); MONO # 0.7 (0.1-0.6); MONO % 6.8 % (1.0-6.0); PLATELET COUNT 276 10^3/uL (120.0-450.0); RED CELL DISTRIBUTION WIDTH 15.8 % (11.5-14.5); WHITE BLOOD COUNT 10.5 10^3/ul (4.5-11.0)
[2016-11-08 08:04] LABS: ALB/GLOB RATIO 0.8 (1.1-1.8); ALKALINE PHOSPHATASE 78 U/L (38-133); ALT/SGPT 30 U/L (7-56); AST/SGOT 34 U/L (15-59); BILIRUBIN,TOTAL 0.7 mg/dL (0.2-1.3); BLOOD UREA NITROGEN 14 mg/dL (7-21); CALCIUM 8.5 mg/dL (8.4-10.5); CARBON DIOXIDE 28 mmol/L (21-33); CHLORIDE 94 mmol/L (95-110); GFR AFRICAN-AMERICAN > 60; GLUCOSE,RANDOM 81 mg/dL (70-110); POTASSIUM 3.7 mmol/L (3.6-5.0); SODIUM 135 mmol/L (132-148); TOTAL PROTEIN 5.8 g/dL (5.8-8.3)
--- NOTE | 2016-11-08 09:14 | RAD ---
HISTORY: ileus re-eval COMPARISON: Earlier CT FINDINGS: BOWEL: Normal. No obstruction. No free air. Mildly dilated large and small bowel are seen on the right side of the abdomen. The pattern is nonspecific BONES: Normal. OTHER FINDINGS: None. IMPRESSION: No active disease.
--- NOTE | 2016-11-08 09:31 | CP.PCM.PN ---
<SilvestreChetna - Last Filed: 11/08/16 16:14> Subjective - Date & Time of Evaluation Date of Evaluation: 11/08/16 Time of Evaluation: 07:00 - Subjective Subjective: Pt seen and evaluated at the bedside. Made c/o of back discomfort due to being off of methadone for 4 days. Reports gas passing and had a BM. Afebrile overnight. Objective - Vital Signs/Intake and Output Vital Signs (last 24 hours): Temp Pulse Resp BP Pulse Ox 99.6 F 105 H 19 143/75 97 11/08/16 05:40 11/08/16 05:40 11/08/16 05:40 11/08/16 05:40 11/08/16 04:30 - Medications Medications: Current Medications Metronidazole (Flagyl) 100 mls @ 100 mls/hr IVPB Q8 [facility] PRN Reason: Protocol Last Admin: 11/08/16 05:41 Dose: 100 mls/hr Ceftriaxone Sodium (Rocephin 1 Gram Ivpb) 100 mls @ 100 mls/hr IVPB DAILY [facility] PRN Reason: Protocol Last Admin: 11/07/16 14:58 Dose: 100 mls/hr Sodium Chloride (Sodium Chloride 0.9%) 1,000 mls @ 150 mls/hr IV .Q6H40M [facility] Last Admin: 11/08/16 06:04 Dose: 150 mls/hr Labetalol HCl (Trandate) 5 mg IV Q6 PRN PRN Reason: Systolic Blood Pressure Morphine Sulfate (Morphine) 2 mg IVP Q4 PRN PRN Reason: Pain, moderate (4-7) Last Admin: 11/08/16 05:41 Dose: 2 mg Ondansetron HCl (Zofran Inj) 4 mg IVP Q4 PRN PRN Reason: Nausea/Vomiting Last Admin: 11/08/16 05:41 Dose: 4 mg Pantoprazole Sodium (Protonix Inj) 40 mg IVP BID [facility] Last Admin: 11/07/16 17:45 Dose: 40 mg Thiamine HCl (Vitamin B1 Tab) 100 mg PO DAILY [facility] Last Admin: 11/07/16 13:30 Dose: 100 mg - Labs Labs: PT 13.9 Seconds (9.9-11.8) H 11/07/16 02:20 INR 1.29 (0.93-1.08) H 11/07/16 02:20 APTT 30.7 Seconds (23.7-30.8) 11/07/16 02:20 - Additional Findings Additional findings: - Constitutional Appears: Chronically Ill - Head Exam Head Exam: ATRAUMATIC, NORMAL INSPECTION, NORMOCEPHALIC - Eye Exam Eye Exam: EOMI, Normal appearance, PERRL - ENT Exam ENT Exam: Mucous Membranes Moist - Respiratory Exam Respiratory Exam: Clear to Auscultation Bilateral, NORMAL BREATHING PATTERN. absent: Accessory Muscle Use, Respiratory Distress - Cardiovascular Exam Cardiovascular Exam: REGULAR RHYTHM, +S1, +S2 - GI/Abdominal Exam GI & Abdominal Exam: Normal Bowel Sounds, Soft, Tenderness. absent: Distended, Firm, Guarding, Hernia, Mass, Organomegaly, Pulsatile Mass, Rebound, Rigid Additional comments: Low abd TTP - Extremities Exam Extremities exam: Positive for: normal inspection - Back Exam Back exam: NORMAL INSPECTION - Neurological Exam Neurological exam: Alert - Skin Skin Exam: Dry, Intact, Normal Color, Warm Assessment and Plan - Assessment and Plan (Free Text) Assessment: 51 yo M w/PMHx of EOTH abuse presents for Pancreatitis, chronic residual aortic dissection, thoracic aneurism h/o thoracic dissection repair, colitis Plan: -Recommend thoracic surgery evaluation -F/U with Thoracic surgeon at [facility] upon discharge -CLD -IVF -Pain control -Serial abd exam -Smoking cessation -Recommend AA -We will continue to follow to be D/W Dr. Gray <Finn Gray - Last Filed: 11/13/16 23:44> Subjective - Date & Time of Evaluation Date of Evaluation: 11/08/16 Time of Evaluation: 10:10 Objective - Vital Signs/Intake and Output Vital Signs (last 24 hours): Temp Pulse Resp BP Pulse Ox 99 F 83 20 156/98 H 96 11/13/16 18:00 11/13/16 22:00 11/13/16 18:00 11/13/16 18:00 11/13/16 06:00 Intake and Output: 11/13/16 11/14/16 18:59 06:59 Intake Total 4490 0 Output Total 1100 200 Balance 3390 -200 - Medications Medications: Current Medications Acetaminophen (Tylenol 325mg Tab) 650 mg PO Q4H PRN PRN Reason: Fever >100.4 F Last Admin: 11/13/16 13:34 Dose: 650 mg Folic Acid (Folic Acid) 1 mg IVP DAILY [facility] Last Admin: 11/13/16 10:39 Dose: 1 mg Piperacillin Sod/Tazobactam Sod (Zosyn 3.375 In Ns 100ml) 100 mls @ 200 mls/hr IVPB Q6 [facility] PRN Reason: Protocol Stop: 11/18/16 08:01 Last Admin: 11/13/16 23:27 Dose: 200 mls/hr Multivitamins/Vitamin C 10 ml/Amino Acids/Electrolytes/Dextrose 2,010 mls @ 83 mls/hr IV .Q24H [facility] Stop: 11/15/16 17:59 Last Admin: 11/13/16 18:22 Dose: 83 mls/hr Fat Emulsion Intravenous (Intralipid 20%) 250 mls @ 21 mls/hr IV DAILY@1800 [facility] Stop: 11/15/16 05:55 Last Admin: 11/13/16 18:21 Dose: 21 mls/hr Sodium Chloride (Sodium Chloride 0.9%) 1,000 mls @ 75 mls/hr IV .[id number] [facility] Last Admin: 11/13/16 13:33 Dose: 75 mls/hr Ketorolac Tromethamine (Toradol) 15 mg IM Q8 PRN PRN Reason: Pain, Mild (1-3) Last Admin: 11/13/16 20:26 Dose: 15 mg Ondansetron HCl (Zofran Inj) 4 mg IVP Q4 PRN PRN Reason: Nausea/Vomiting Last Admin: 11/13/16 18:46 Dose: 4 mg Pantoprazole Sodium (Protonix Inj) 40 mg IVP BID [facility] Last Admin: 11/13/16 20:18 Dose: 40 mg Thiamine HCl (Vitamin B1 Tab) 100 mg PO DAILY [facility] Last Admin: 11/13/16 13:32 Dose: 100 mg - Labs Labs: 11/13/16 08:50 11/13/16 08:50 PT 13.6 Seconds (9.9-11.8) H 11/12/16 05:30 INR 1.26 (0.93-1.08) H 11/12/16 05:30 APTT 35.8 Seconds (23.7-30.8) H 11/12/16 05:30 Assessment and Plan - Assessment and Plan (Free Text) Assessment: Patient was seen and examined by me. I agree with assessment and plan as per resident's note.
[2016-11-08 10:15] LABS: CHLORIDE URINE 21 mmol/L (32-290)
[2016-11-08] MEDS: cefTRIAXone 1 gm 100 ML IVPB SCH (11:05)
--- NOTE | 2016-11-08 14:04 | CP.PCM.PN ---
<SilvestreColin - Last Filed: 11/08/16 13:54> Subjective - Date & Time of Evaluation Date of Evaluation: 11/08/16 Time of Evaluation: 13:54 - Subjective Subjective: Note for Hospitalist Pt s&e. C/O abd pain and back pain. Denies F/C/N/V/D/CP/SOB. Pt wants methadone. Spoke with Dr. Dior: recommended 30mg today and increase by 10mg daily. Explained to pt. Objective - Vital Signs/Intake and Output Vital Signs (last 24 hours): Temp Pulse Resp BP Pulse Ox 99.7 F H 96 H 19 147/77 97 11/08/16 12:00 11/08/16 12:00 11/08/16 12:00 11/08/16 12:00 11/08/16 04:30 - Medications Medications: Current Medications Metronidazole (Flagyl) 100 mls @ 100 mls/hr IVPB Q8 [facility] PRN Reason: Protocol Last Admin: 11/08/16 05:41 Dose: 100 mls/hr Ceftriaxone Sodium (Rocephin 1 Gram Ivpb) 100 mls @ 100 mls/hr IVPB DAILY [facility] PRN Reason: Protocol Last Admin: 11/08/16 11:05 Dose: 100 mls/hr Sodium Chloride (Sodium Chloride 0.9%) 1,000 mls @ 150 mls/hr IV .Q6H40M [facility] Last Admin: 11/08/16 12:34 Dose: Not Given Ketorolac Tromethamine (Toradol) 15 mg IM Q6 PRN PRN Reason: Pain, moderate (4-7) Stop: 11/13/16 11:43 Labetalol HCl (Trandate) 5 mg IV Q6 PRN PRN Reason: Systolic Blood Pressure Methadone HCl (Methadone) 40 mg PO ONCE ONE Stop: 11/09/16 07:01 Methadone HCl (Methadone) 10 mg PO Q8 PRN PRN Reason: Pain, moderate (4-7) Morphine Sulfate (Morphine) 2 mg IVP Q4 PRN PRN Reason: Pain, moderate (4-7) Last Admin: 11/08/16 05:41 Dose: 2 mg Ondansetron HCl (Zofran Inj) 4 mg IVP Q4 PRN PRN Reason: Nausea/Vomiting Last Admin: 11/08/16 05:41 Dose: 4 mg Pantoprazole Sodium (Protonix Inj) 40 mg IVP BID [facility] Last Admin: 11/08/16 11:05 Dose: 40 mg Thiamine HCl (Vitamin B1 Tab) 100 mg PO DAILY [facility] Last Admin: 11/08/16 11:06 Dose: 100 mg - Labs Labs: PT 13.9 Seconds (9.9-11.8) H 11/07/16 02:20 INR 1.29 (0.93-1.08) H 11/07/16 02:20 APTT 30.7 Seconds (23.7-30.8) 11/07/16 02:20 - Constitutional Appears: Non-toxic - Head Exam Head Exam: ATRAUMATIC, NORMAL INSPECTION, NORMOCEPHALIC - Eye Exam Eye Exam: EOMI, Normal appearance, PERRL Pupil Exam: NORMAL ACCOMODATION, PERRL - ENT Exam ENT Exam: Mucous Membranes Moist, Normal Exam - Neck Exam Neck Exam: Full ROM, Normal Inspection. absent: Lymphadenopathy - Respiratory Exam Respiratory Exam: Clear to Ausculation Bilateral, NORMAL BREATHING PATTERN. absent: Accessory Muscle Use, Respiratory Distress - Cardiovascular Exam Cardiovascular Exam: Tachycardia, +S1, +S2. absent: Irregular Rhythm, Murmur - GI/Abdominal Exam GI & Abdominal Exam: Soft, Tenderness, Normal Bowel Sounds. absent: Distended, Firm, Guarding, Rigid - Exam Exam: Circumcision, NORMAL INSPECTION External exam: NORMAL EXTERNAL EXAM Speculum exam: NORMAL SPECULUM EXAM Bimanual exam: NORMAL BIMANUAL EXAM - Extremities Exam Extremities Exam: Full ROM, Normal Capillary Refill, Normal Inspection. absent : Joint Swelling, Pedal Edema - Back Exam Back Exam: NORMAL INSPECTION - Neurological Exam Neurological Exam: Alert, Awake, CN II-XII Intact, Normal Gait, Oriented x3 - Psychiatric Exam Psychiatric exam: Normal Affect, Normal Mood - Skin Skin Exam: Dry, Intact, Normal Color, Warm Assessment and Plan - Assessment and Plan (Free Text) Assessment: This is a 50 yo male with past medical hx of pancreatitis, alcoholism, thoracic aneurysm presenting with abdominal pain 1. Acute pancreatitis -CLD -CT abdomen pelvis shows focal colitis as well as ascites and chronic residual dissection of abdominal aneurysm -NS at 125 cc/hr -2 q 4 morphine prn -Methadone 30mg today. Increase by 10mg daily up to 120. -zofran prn -admit to telemetry bed -F/U GI rec 2. Hx of HTN -hold PO metoprolol -PRN labetalol 5 IV q 6, prn SBP >165 3. Hx of thoracic/abdominal aneurysm -sx consult: No emergent surgery at this time. F/U with Thoracic surgeon. -continue to monitor -Cardio following -F/U Echo reads 4. focal colitis on CT/elevated white count -WBC: 10.5 today -flagyl 500 q 8 -Rocephine -blood/urine/stool cultures -stool c diff -serum procal pending 5. Hx of HLD -hold home lipitor for now 6. GI/DVT ppx -lovenox DC ed per Cardio: SCD -protonix daily DW Attending <Luis Manuel Orlando MD - Last Filed: 11/08/16 17:49> Objective - Vital Signs/Intake and Output Vital Signs (last 24 hours): Temp Pulse Resp BP Pulse Ox 99.7 F H 101 H 19 147/77 97 11/08/16 12:00 11/08/16 14:00 11/08/16 12:00 11/08/16 12:00 11/08/16 04:30 - Medications Medications: Current Medications Metronidazole (Flagyl) 100 mls @ 100 mls/hr IVPB Q8 [facility] PRN Reason: Protocol Last Admin: 11/08/16 14:08 Dose: 100 mls/hr Ceftriaxone Sodium (Rocephin 1 Gram Ivpb) 100 mls @ 100 mls/hr IVPB DAILY [facility] PRN Reason: Protocol Last Admin: 11/08/16 11:05 Dose: 100 mls/hr Sodium Chloride (Sodium Chloride 0.9%) 1,000 mls @ 150 mls/hr IV .Q6H40M [facility] Last Admin: 11/08/16 12:34 Dose: Not Given Ketorolac Tromethamine (Toradol) 15 mg IM Q6 PRN PRN Reason: Pain, moderate (4-7) Stop: 11/13/16 11:43 Last Admin: 11/08/16 14:03 Dose: 15 mg Labetalol HCl (Trandate) 5 mg IV Q6 PRN PRN Reason: Systolic Blood Pressure Methadone HCl (Methadone) 40 mg PO ONCE ONE Stop: 11/09/16 07:01 Methadone HCl (Methadone) 10 mg PO Q8 PRN PRN Reason: Pain, moderate (4-7) Morphine Sulfate (Morphine) 2 mg IVP Q4 PRN PRN Reason: Pain, moderate (4-7) Last Admin: 11/08/16 05:41 Dose: 2 mg Ondansetron HCl (Zofran Inj) 4 mg IVP Q4 PRN PRN Reason: Nausea/Vomiting Last Admin: 11/08/16 14:04 Dose: 4 mg Pantoprazole Sodium (Protonix Inj) 40 mg IVP BID [facility] Last Admin: 11/08/16 11:05 Dose: 40 mg Thiamine HCl (Vitamin B1 Tab) 100 mg PO DAILY [facility] Last Admin: 11/08/16 11:06 Dose: 100 mg - Labs Labs: PT 13.9 Seconds (9.9-11.8) H 11/07/16 02:20 INR 1.29 (0.93-1.08) H 11/07/16 02:20 APTT 30.7 Seconds (23.7-30.8) 11/07/16 02:20 Attending/Attestation - Attestation I have personally seen and examined this patient.: Yes I have fully participated in the care of the patient.: Yes I have reviewed all pertinent clinical information, including history, physical exam and plan: Yes Notes (Text): Patient was seen and examined with manager medical writing .Agreed with resident assessment and plan. 51 yrs male with sepsis due to colitis, hemoglobin is stable.no melena, Patient abdominal pain is better, we will continue IV antibiotics, we will start patient on clear liquid diet and will monitor. Management plan was discussed in detail with patient Education was provided.
--- NOTE | 2016-11-08 15:27 | PN ---
DATE: 11/08/2016 The patient is still experiencing abdominal pain as well as back pain. He denies any diaphoresis. PHYSICAL EXAMINATION: VITAL SIGNS: Blood pressure 147/77, heart rate 96, temperature 99.7, respiration 19. HEENT: Normocephalic. NECK: No JVD. CHEST: Clear. HEART: S1, S2 regular. EXTREMITIES: No edema. LABORATORIES: Hemoglobin and hematocrit 11.1 and 31.4. White count and platelet count are within no rmal limit. Today's SMA-7 is within normal limit except for chloride of 94. ASSESSMENT: 1. Acute pancreatitis. 2. Status post report of type A aortic dissection with chronic residual distal abdominal aortic diss ection. RECOMMENDATIONS: Continue IV Flagyl and IV Rocephin. Continue p.r.n. IV labetalol. Continue normal saline infusion. I will review the echocardiograph study performed today. A drug screen was marsha rosen but has not been performed yet. Celso Moran MD cc: [id number] TT: 11/08/2016 15:26:20 Confirmation # [id number] Dictation # [id number]
--- NOTE | 2016-11-08 15:35 | CON ---
DATE: 11/08/2016 REQUESTING PHYSICIAN: Dr. Law Gomez. REASON FOR CONSULTATION: I have been asked to see this 51-year-old male with a history of dissecting aortic aneurysm in 2014, chronic alcohol abuse, chronic pancreatitis who comes to the hospital with a 3-day history of left upper quadrant abdominal pain, nausea, vomiting and diarrhea. CT scan of the abdomen and pelvis performed in the Emergency Room shows some mural thickening of the descending col on near the splenic flexure as well as some pericolonic inflammation as well as a hypodense area betw een the tail of the pancreas and the stomach. The patient is on methadone treatment at home. He is a former heroin user. He still is complaining of some abdominal pain, nausea and diarrhea. He is as fely for his methadone. PAST MEDICAL HISTORY: As above. Again, he has a history of a dissecting thoracic aortic aneurysm, w hich was repaired at [facility]. He also has a history of alcohol and drug use, hypertensi on, chronic pancreatitis, has a history of hypertension. His last alcohol intake was approximately 3 days ago, at which time he drank a pint of vodka. SOCIAL HISTORY: As above. FAMILY HISTORY: Noncontributory. REVIEW OF SYSTEMS: A 14-point review of systems is notable for abdominal pain, nausea, vomiting and diarrhea. PHYSICAL EXAMINATION: GENERAL: Elderly male lying in bed in no acute distress. VITAL SIGNS: Reveal temperature of 99.6, blood pressure 143/75, heart rate of 105. HEENT: Reveals sclerae to be muddy. Conjunctivae pale. NECK: Supple. CHEST: Reveals lungs to be clear. HEART: Reveals regular rate and rhythm. ABDOMEN: Softly distended, mild diffuse tenderness without rebound, no guarding. EXTREMITIES: Show no edema. LABORATORY DATA: From this morning revealed white blood cell count of 10.5, hemoglobin of 11.1. Silvia mistries reveal normal electrolytes. Albumin is 2.6. AST, ALT, alk phos are all normal. Amylase an d lipase on admission to the hospital were 313 and 478. IMPRESSION: A 51-year-old male admitted to the hospital with 3 days of abdominal pain, nausea, vomit ing, diarrhea with a CT scan of the abdomen showing mural thickening of the descending colon near the splenic flexure associated with adjacent stranding of the mesentery and omentum. There is also a hy podense area between the pancreas and the stomach. This may represent a loculated fluid collection. RECOMMENDATIONS: 1. Continue IV fluids. 2. Check stool for C and S, O and P, Clostridium difficile toxin. 3. Continue IV Flagyl 500 mg q. 8 hours. 4. Observe the patient for alcohol withdrawal. Javier Gonzáles MD cc: [phone] TT: 11/08/2016 15:35:17 Confirmation # [id number] Dictation # [id number] rn
--- NOTE | 2016-11-08 16:01 | CARD ---
APPROVED REPORT EXAM: Two-dimensional and M-mode echocardiogram with Doppler and color Doppler. INDICATION Abnormal EKG/Arrhythmia 2D DIMENSIONS Left Atrium (2D)3.7 (1.6-4.0cm)IVSd1.1 (0.7-1.1cm) LVDd4.4 (3.9-5.9cm)PWd1.1 (0.7-1.1cm) LVDs3.0 (2.5-4.0cm)FS (%) 32.9 % LVEF (%)61.6 (>50%) M-Mode DIMENSIONS Aortic Root4.00 (2.2-3.7cm)Aortic Cusp Exc.2.00 (1.5-2.0cm) Aortic Valve AoV Peak Xrkwflle812.0cm/Marcelino Peak GR.7mmHg Mitral Valve MV E Uxqpxnml99.3cm/sMV A Okzdwiwh06.7cm/sE/A ratio0.6 TDI Lateral E' Peak V7.31cm/sMedial E' Peak V7.80cm/sE/Lateral E'6.3 E/Medial E'5.9 Pulmonary Valve PV Peak Zqxobnnb361.0cm/sPV Peak Grad.8mmHg Tricuspid Valve TR Peak Okygjnxn305ag/sRAP [id number] Peak Gr.40mmHg [id number] LEFT VENTRICLE The left ventricle is normal size. There is normal left ventricular wall thickness. The left ventricular function is normal. The left ventricular ejection fraction is within the normal range. There is normal LV segmental wall motion. Transmitral Doppler flow pattern is Grade I-abnormal relaxation pattern. RIGHT VENTRICLE The right ventricle is normal size. There is normal right ventricular wall thickness. The right ventricular systolic function is normal. ATRIA The left atrium size is normal. The right atrium size is normal. AORTIC VALVE The aortic valve is normal in structure. No aortic regurgitation is present. MITRAL VALVE The mitral valve is normal in structure. TRICUSPID VALVE There is mild to moderate pulmonary hypertension. GREAT VESSELS The aortic root is mildly enlarged. The IVC is normal in size and collapses >50% with inspiration. PERICARDIAL EFFUSION There is a trace loculated anterior pericardial effusion. <Conclusion> The left ventricle is normal size. There is normal left ventricular wall thickness. The left ventricular function is normal. The left ventricular ejection fraction is within the normal range. Transmitral Doppler flow pattern is Grade I-abnormal relaxation pattern. There is mild to moderate pulmonary hypertension. The aortic root is mildly enlarged.
[2016-11-09] MEDS: metroNIDAZOLE IV 500 mg/100 ml 100 ML IVPB SCH ×3 (05:03→21:19)
[2016-11-09] MEDS: Sodium Chloride 0.9% 1,000 ML IV SCH (05:09)
[2016-11-09 06:49] LABS: ADD MANUAL DIFF? NO
[2016-11-09 07:00] LABS: BASO # 0.01 K/mm3 (0.0-2.0); BASO % 0.1 % (0.0-3.0); GRAN # 9.46 (1.4-6.5); GRAN % 80.9 % (50.0-68.0); HEMATOCRIT 28.9 % (42.0-52.0); LYMPH # 0.9 (1.2-3.4); LYMPH % 7.7 % (22.0-35.0); MEAN CELL VOLUME 74.9 fL (80.0-105.0); MEAN CORPUSCULAR HEMOGLOBIN 26.9 pg (25.0-35.0); MEAN PLATELET VOLUME 9.3 fl (7.0-11.0); MONO # 1.3 (0.1-0.6); MONO % 11.3 % (1.0-6.0); PLATELET COUNT 262 10^3/uL (120.0-450.0); RED CELL DISTRIBUTION WIDTH 15.8 % (11.5-14.5); WHITE BLOOD COUNT 11.7 10^3/ul (4.5-11.0)
[2016-11-09 07:15] LABS: ALB/GLOB RATIO 0.7 (1.1-1.8); ALKALINE PHOSPHATASE 56 U/L (38-133); ALT/SGPT 35 U/L (7-56); AMYLASE 238 U/L (35-125); AST/SGOT 27 U/L (15-59); BILIRUBIN,TOTAL 0.6 mg/dL (0.2-1.3); BLOOD UREA NITROGEN 12 mg/dL (7-21); CALCIUM 7.7 mg/dL (8.4-10.5); CARBON DIOXIDE 26 mmol/L (21-33); CHLORIDE 100 mmol/L (98-107); GFR AFRICAN-AMERICAN > 60; GLUCOSE,RANDOM 72 mg/dL (70-110); LIPASE 258 U/L (23-300); SODIUM 136 mmol/L (132-148)
[2016-11-09 07:20] LABS: POTASSIUM 2.9 mmol/L (3.6-5.0)
--- NOTE | 2016-11-09 08:32 | CP.PCM.PN ---
<SilvestreChetna - Last Filed: 11/09/16 16:08> Subjective - Date & Time of Evaluation Date of Evaluation: 11/09/16 Time of Evaluation: 07:10 - Subjective Subjective: SURGERY NOTE FOR DR. GRAY Pt seen and evaluated at the bedside. Pt denies any pains, and denies vomiting overnight, and reports a BM overnight as well. Fever of 100.7 overnight. Objective - Vital Signs/Intake and Output Vital Signs (last 24 hours): Temp Pulse Resp BP Pulse Ox 98.5 F 106 H 19 125/76 97 11/09/16 06:00 11/09/16 06:00 11/09/16 06:00 11/09/16 06:00 11/09/16 06:00 Intake and Output: 11/09/16 11/09/16 06:59 18:59 Intake Total 2440 Output Total 325 Balance 2115 - Medications Medications: Current Medications Acetaminophen (Tylenol 325mg Tab) 650 mg PO Q4H PRN PRN Reason: Fever >100.4 F Metronidazole (Flagyl) 100 mls @ 100 mls/hr IVPB Q8 [facility] PRN Reason: Protocol Last Admin: 11/09/16 05:03 Dose: 100 mls/hr Ceftriaxone Sodium (Rocephin 1 Gram Ivpb) 100 mls @ 100 mls/hr IVPB DAILY [facility] PRN Reason: Protocol Last Admin: 11/08/16 11:05 Dose: 100 mls/hr Sodium Chloride (Sodium Chloride 0.9%) 1,000 mls @ 150 mls/hr IV .Q6H40M [facility] Last Admin: 11/09/16 05:09 Dose: 150 mls/hr Potassium Chloride/Dextrose/Sod Cl (Potassium Chl 10 Meq In D5-1/2ns) 1,000 mls @ 100 mls/hr IV .Q10H [facility] Ketorolac Tromethamine (Toradol) 15 mg IM Q6 PRN PRN Reason: Pain, moderate (4-7) Stop: 11/13/16 11:43 Last Admin: 11/08/16 18:57 Dose: 15 mg Labetalol HCl (Trandate) 5 mg IV Q6 PRN PRN Reason: Systolic Blood Pressure Methadone HCl (Methadone) 10 mg PO Q8 PRN PRN Reason: Pain, moderate (4-7) Morphine Sulfate (Morphine) 2 mg IVP Q4 PRN PRN Reason: Pain, moderate (4-7) Last Admin: 11/08/16 05:41 Dose: 2 mg Ondansetron HCl (Zofran Inj) 4 mg IVP Q4 PRN PRN Reason: Nausea/Vomiting Last Admin: 11/09/16 05:09 Dose: 4 mg Pantoprazole Sodium (Protonix Inj) 40 mg IVP BID [facility] Last Admin: 11/08/16 18:55 Dose: 40 mg Thiamine HCl (Vitamin B1 Tab) 100 mg PO DAILY [facility] Last Admin: 11/08/16 11:06 Dose: 100 mg - Labs Labs: 11/09/16 06:00 11/09/16 06:00 PT 13.9 Seconds (9.9-11.8) H 11/07/16 02:20 INR 1.29 (0.93-1.08) H 11/07/16 02:20 APTT 30.7 Seconds (23.7-30.8) 11/07/16 02:20 - Additional Findings Additional findings: - Constitutional Appears: No Distresss - Head Exam Head Exam: ATRAUMATIC, NORMAL INSPECTION, NORMOCEPHALIC - Eye Exam Eye Exam: EOMI - ENT Exam ENT Exam: Mucous Membranes Moist - Respiratory Exam Respiratory Exam: Clear to Auscultation Bilateral, NORMAL BREATHING PATTERN. absent: Accessory Muscle Use, Respiratory Distress - Cardiovascular Exam Cardiovascular Exam: tachycardia, +S1, +S2 - GI/Abdominal Exam GI & Abdominal Exam: Normal Bowel Sounds, Soft, Tenderness. absent: Distended, Firm, Guarding, Hernia, Mass, Organomegaly, Pulsatile Mass, Rebound, Rigid Additional comments: Low abd TTP - Extremities Exam Extremities exam: Positive for: normal inspection - Back Exam Back exam: NORMAL INSPECTION - Neurological Exam Neurological exam: Alert - Skin Skin Exam: Intact, Normal Color Assessment and Plan - Assessment and Plan (Free Text) Assessment: 51 yo M w/PMHx of EOTH abuse presents for Pancreatitis, chronic residual aortic dissection, thoracic aneurism h/o thoracic dissection repair, colitis Plan: -Advance diet as tolerated -Hypokalemia repleted, f/u 5pm potassium and magnesium labs -Pain control -Serial abd exam -Smoking cessation -Recommend AA -We will continue to follow to be D/W Dr. Gray <Finn Gray - Last Filed: 11/13/16 23:45> Subjective - Date & Time of Evaluation Date of Evaluation: 11/09/16 Time of Evaluation: 10:50 Objective - Vital Signs/Intake and Output Vital Signs (last 24 hours): Temp Pulse Resp BP Pulse Ox 99 F 83 20 156/98 H 96 11/13/16 18:00 11/13/16 22:00 11/13/16 18:00 11/13/16 18:00 11/13/16 06:00 Intake and Output: 11/13/16 11/14/16 18:59 06:59 Intake Total 4490 0 Output Total 1100 200 Balance 3390 -200 - Medications Medications: Current Medications Acetaminophen (Tylenol 325mg Tab) 650 mg PO Q4H PRN PRN Reason: Fever >100.4 F Last Admin: 11/13/16 13:34 Dose: 650 mg Folic Acid (Folic Acid) 1 mg IVP DAILY [facility] Last Admin: 11/13/16 10:39 Dose: 1 mg Piperacillin Sod/Tazobactam Sod (Zosyn 3.375 In Ns 100ml) 100 mls @ 200 mls/hr IVPB Q6 [facility] PRN Reason: Protocol Stop: 11/18/16 08:01 Last Admin: 11/13/16 23:27 Dose: 200 mls/hr Multivitamins/Vitamin C 10 ml/Amino Acids/Electrolytes/Dextrose 2,010 mls @ 83 mls/hr IV .Q24H [facility] Stop: 11/15/16 17:59 Last Admin: 11/13/16 18:22 Dose: 83 mls/hr Fat Emulsion Intravenous (Intralipid 20%) 250 mls @ 21 mls/hr IV DAILY@1800 [facility] Stop: 11/15/16 05:55 Last Admin: 11/13/16 18:21 Dose: 21 mls/hr Sodium Chloride (Sodium Chloride 0.9%) 1,000 mls @ 75 mls/hr IV .[id number] [facility] Last Admin: 11/13/16 13:33 Dose: 75 mls/hr Ketorolac Tromethamine (Toradol) 15 mg IM Q8 PRN PRN Reason: Pain, Mild (1-3) Last Admin: 11/13/16 20:26 Dose: 15 mg Ondansetron HCl (Zofran Inj) 4 mg IVP Q4 PRN PRN Reason: Nausea/Vomiting Last Admin: 11/13/16 18:46 Dose: 4 mg Pantoprazole Sodium (Protonix Inj) 40 mg IVP BID [facility] Last Admin: 11/13/16 20:18 Dose: 40 mg Thiamine HCl (Vitamin B1 Tab) 100 mg PO DAILY [facility] Last Admin: 11/13/16 13:32 Dose: 100 mg - Labs Labs: 11/13/16 08:50 11/13/16 08:50 PT 13.6 Seconds (9.9-11.8) H 11/12/16 05:30 INR 1.26 (0.93-1.08) H 11/12/16 05:30 APTT 35.8 Seconds (23.7-30.8) H 11/12/16 05:30 Assessment and Plan - Assessment and Plan (Free Text) Assessment: Patient was seen and examined by me. I agree with assessment and plan as per resident's note.
[2016-11-09] MEDS: Potassium Chloride 20 mEq 100 ML IVPB SCH ×2 (09:00→11:26)
[2016-11-09] MEDS: Potassium Chloride 20 mEq ER Tab PO SCH ×3 (09:18→17:13)
[2016-11-09] MEDS: cefTRIAXone 1 gm 100 ML IVPB SCH (09:46)
[2016-11-09] MEDS: Potassium Chl 10 mEq in D5-1/2 1,000 ML IV SCH ×2 (09:47→20:37)
--- NOTE | 2016-11-09 10:43 | CP.PCM.PN ---
<SilvestreColin - Last Filed: 11/09/16 12:13> Subjective - Date & Time of Evaluation Date of Evaluation: 11/09/16 Time of Evaluation: 10:37 - Subjective Subjective: Note for Hospitalist Pt s&e. Pain better controlled with Methadone and toradol. Pt had 100.7 fever overnight. c/o watery diarrhea. Denies N/V/CP/SOB. Tolerating PO. Stool studies haven't sent yet because not enough to send out. Objective - Vital Signs/Intake and Output Vital Signs (last 24 hours): Temp Pulse Resp BP Pulse Ox 98.5 F 106 H 19 125/76 97 11/09/16 06:00 11/09/16 06:00 11/09/16 06:00 11/09/16 06:00 11/09/16 06:00 Intake and Output: 11/09/16 11/09/16 06:59 18:59 Intake Total 2440 Output Total 325 Balance 2115 - Medications Medications: Current Medications Acetaminophen (Tylenol 325mg Tab) 650 mg PO Q4H PRN PRN Reason: Fever >100.4 F Metronidazole (Flagyl) 100 mls @ 100 mls/hr IVPB Q8 [facility] PRN Reason: Protocol Last Admin: 11/09/16 05:03 Dose: 100 mls/hr Ceftriaxone Sodium (Rocephin 1 Gram Ivpb) 100 mls @ 100 mls/hr IVPB DAILY [facility] PRN Reason: Protocol Last Admin: 11/09/16 09:46 Dose: 100 mls/hr Potassium Chloride/Dextrose/Sod Cl (Potassium Chl 10 Meq In D5-1/2ns) 1,000 mls @ 100 mls/hr IV .Q10H [facility] Last Admin: 11/09/16 09:47 Dose: 100 mls/hr Potassium Chloride (Potassium Chloride 20 Meq/100 Ml) 100 mls @ 50 mls/hr IVPB Q2H [facility] Stop: 11/09/16 12:29 Last Admin: 11/09/16 09:00 Dose: 50 mls/hr Labetalol HCl (Trandate) 5 mg IV Q6 PRN PRN Reason: Systolic Blood Pressure Methadone HCl (Methadone) 10 mg PO Q8 PRN PRN Reason: Pain, moderate (4-7) Morphine Sulfate (Morphine) 2 mg IVP Q4 PRN PRN Reason: Pain, moderate (4-7) Last Admin: 11/08/16 05:41 Dose: 2 mg Ondansetron HCl (Zofran Inj) 4 mg IVP Q4 PRN PRN Reason: Nausea/Vomiting Last Admin: 11/09/16 05:09 Dose: 4 mg Pantoprazole Sodium (Protonix Inj) 40 mg IVP BID [facility] Last Admin: 11/09/16 09:18 Dose: 40 mg Potassium Chloride (K-Dur 20 Meq Er Tab) 20 meq PO TID [facility] Stop: 11/10/16 23:00 Last Admin: 11/09/16 09:18 Dose: 20 meq Thiamine HCl (Vitamin B1 Tab) 100 mg PO DAILY [facility] Last Admin: 11/09/16 09:18 Dose: 100 mg - Labs Labs: 11/09/16 06:00 11/09/16 06:00 PT 13.9 Seconds (9.9-11.8) H 11/07/16 02:20 INR 1.29 (0.93-1.08) H 11/07/16 02:20 APTT 30.7 Seconds (23.7-30.8) 11/07/16 02:20 - Constitutional Appears: No Acute Distress - Head Exam Head Exam: ATRAUMATIC, NORMAL INSPECTION, NORMOCEPHALIC - Eye Exam Eye Exam: EOMI, Normal appearance, PERRL Pupil Exam: NORMAL ACCOMODATION, PERRL - ENT Exam ENT Exam: Mucous Membranes Moist, Normal Exam - Neck Exam Neck Exam: Full ROM, Normal Inspection. absent: Lymphadenopathy - Respiratory Exam Respiratory Exam: Clear to Ausculation Bilateral, NORMAL BREATHING PATTERN - Cardiovascular Exam Cardiovascular Exam: REGULAR RHYTHM, +S1, +S2. absent: Murmur - GI/Abdominal Exam GI & Abdominal Exam: Soft, Tenderness, Normal Bowel Sounds. absent: Distended, Firm, Guarding, Rigid, Pulsatile Mass - Extremities Exam Extremities Exam: Full ROM, Normal Capillary Refill, Normal Inspection. absent : Joint Swelling, Pedal Edema - Back Exam Back Exam: NORMAL INSPECTION, tenderness - Neurological Exam Neurological Exam: Alert, Awake, CN II-XII Intact, Normal Gait, Oriented x3 - Psychiatric Exam Psychiatric exam: Normal Affect, Normal Mood - Skin Skin Exam: Dry, Intact, Normal Color, Warm Assessment and Plan - Assessment and Plan (Free Text) Assessment: This is a 50 yo male with past medical hx of pancreatitis, alcoholism, thoracic aneurysm presenting with abdominal pain 1. Acute pancreatitis 2/2 EtOH abuse -FLD advance diet to Soft for dinner tonight. -CT abdomen pelvis shows focal colitis as well as ascites and chronic residual dissection of abdominal aneurysm -NS at 125 cc/hr -2 q 4 morphine prn -Toradol 15mg IV PRN -Methadone 40mg today. Increase by 10mg daily up to 120. -zofran prn -GI rec : Stool studies 2. Hx of HTN -hold PO metoprolol -PRN labetalol 5 IV q 6, prn SBP >165 3. Hx of thoracic/abdominal aneurysm -sx consult: No emergent surgery at this time. F/U with Thoracic surgeon. -continue to monitor -Cardio following -Echo: EF 61% 4. focal colitis on CT/elevated white count -WBC:11.7<- 10.5 -flagyl 500 q 8 -Rocephine -blood/urine/stool cultures -stool c diff 5. Hx of HLD -hold home lipitor for now 6. EtOH/Substance abuse - Utox : Opiate, Methadone + -Thiamin 7. GI/DVT ppx -lovenox DC ed per Cardio: SCD -protonix daily 8. Hypokalemia -Repleted -f/u PM BMP Dispo: Likely DC tomorrow with PO ABX Fagyl if tolerating diet. DW Attending <Luis Manuel Orlando MD - Last Filed: 11/09/16 17:31> Objective - Vital Signs/Intake and Output Vital Signs (last 24 hours): Temp Pulse Resp BP Pulse Ox 99 F 105 H 20 135/87 97 11/09/16 12:00 11/09/16 14:00 11/09/16 12:00 11/09/16 12:00 11/09/16 09:00 Intake and Output: 11/09/16 11/09/16 06:59 18:59 Intake Total 2440 480 Output Total 325 200 Balance 2115 280 - Medications Medications: Current Medications Acetaminophen (Tylenol 325mg Tab) 650 mg PO Q4H PRN PRN Reason: Fever >100.4 F Metronidazole (Flagyl) 100 mls @ 100 mls/hr IVPB Q8 [facility] PRN Reason: Protocol Last Admin: 11/09/16 13:02 Dose: 100 mls/hr Ceftriaxone Sodium (Rocephin 1 Gram Ivpb) 100 mls @ 100 mls/hr IVPB DAILY [facility] PRN Reason: Protocol Last Admin: 11/09/16 09:46 Dose: 100 mls/hr Potassium Chloride/Dextrose/Sod Cl (Potassium Chl 10 Meq In D5-1/2ns) 1,000 mls @ 100 mls/hr IV .Q10H [facility] Last Admin: 11/09/16 09:47 Dose: 100 mls/hr Ketorolac Tromethamine (Toradol) 15 mg IVP Q8 PRN PRN Reason: Pain, Mild (1-3) Last Admin: 11/09/16 13:03 Dose: 15 mg Labetalol HCl (Trandate) 5 mg IV Q6 PRN PRN Reason: Systolic Blood Pressure Methadone HCl (Methadone) 10 mg PO Q8 PRN PRN Reason: Pain, moderate (4-7) Morphine Sulfate (Morphine) 2 mg IVP Q4 PRN PRN Reason: Pain, moderate (4-7) Last Admin: 11/08/16 05:41 Dose: 2 mg Ondansetron HCl (Zofran Inj) 4 mg IVP Q4 PRN PRN Reason: Nausea/Vomiting Last Admin: 11/09/16 17:17 Dose: 4 mg Pantoprazole Sodium (Protonix Inj) 40 mg IVP BID [facility] Last Admin: 11/09/16 17:13 Dose: 40 mg Potassium Chloride (K-Dur 20 Meq Er Tab) 20 meq PO TID [facility] Stop: 11/10/16 23:00 Last Admin: 11/09/16 17:13 Dose: 20 meq Thiamine HCl (Vitamin B1 Tab) 100 mg PO DAILY [facility] Last Admin: 11/09/16 09:18 Dose: 100 mg - Labs Labs: 11/09/16 06:00 11/09/16 16:55 PT 13.9 Seconds (9.9-11.8) H 11/07/16 02:20 INR 1.29 (0.93-1.08) H 11/07/16 02:20 APTT 30.7 Seconds (23.7-30.8) 11/07/16 02:20 Attending/Attestation - Attestation I have personally seen and examined this patient.: Yes I have fully participated in the care of the patient.: Yes I have reviewed all pertinent clinical information, including history, physical exam and plan: Yes Notes (Text): Patient was seen and examined with medical facilities section director .Agreed with resident assessment and plan. 51 yrs male with PMH of PVD, SP aortic repair, chronic back pain , chronic pain syndrome on methadone therapy was admitted with sepsis sepsis due to colitis Patient abdominal pain is better, he is tolerating clear liquid diet, we will advance to full liquid diet.Patient is still having low grade fever, cultures are negative.Diarrhea is improving. If he will keep improving, will switch to oral antibiotics in 24 hour. Management plan was discussed in detail with patient Education was provided.
--- NOTE | 2016-11-09 11:33 | PN ---
DATE: 11/09/2016 SUBJECTIVE: The patient is lying in bed, comfortable. Diarrhea is less. He states that he had 2 "s mall" loose bowel movements this morning. He did not submitted a stool specimen as requested for cul ture and C. diff. He is tolerating clear liquid diet. He denies any nausea or vomiting. PHYSICAL EXAMINATION: VITAL SIGNS: Reveal temperature of 98.5, blood pressure 125/76, heart rate of 106. ABDOMEN: Soft, nontender. No mass. LABORATORY DATA: Reveal white blood cell count down to 11.7, hemoglobin 10.4, potassium at 2.9. Marlee lase is down to 238. Lipase is normal. Albumin is 2.1. Total bilirubin is 0.6, AST 27, ALT 35. IMPRESSION: A 51-year-old male admitted to the hospital with abdominal pain, nausea, vomiting, diarr hea, history of chronic pancreatitis; history of opiate dependence, on methadone. The patient clinic ally is improved. He is tolerating clear liquid diet. He has not complied with requests to submit s tool specimens. RECOMMENDATIONS: Will advance to full liquid diet. If tolerated, the patient can be advanced to a s oft diet and discharged home with outpatient followup. He has been counseled on alcohol abstinence. Javier Gonzáles MD cc: [phone] TT: 11/09/2016 11:33:28 Confirmation # [id number] Dictation # [id number] [place]
--- NOTE | 2016-11-09 16:30 | PN ---
DATE: 11/09/2016 The patient denies any chest pain. He is still experiencing abdominal discomfort. PHYSICAL EXAMINATION: VITAL SIGNS: Blood pressure 135/87, heart rate 104, temperature 99, respirations 20. HEENT: Pale conjunctivae. CHEST: Clear. HEART: S1, S2 regular. EXTREMITIES: No edema. LABORATORIES: Today's potassium is 2.9 and calcium is 7.7. Hemoglobin and hematocrit 10.4 and 28.9. Lipase is 258, amylase 238. ASSESSMENT: 1. Acute pancreatitis. 2. Ethyl alcohol abuse. 3. 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 4. Hypokalemia. RECOMMENDATIONS: The patient is receiving intravenous potassium replacement. Continue K-Dur 20 mEq once a day. Continue IV Flagyl and IV Rocephin. Continue labetalol 5 mg intravenously q.6 hours p.r .n., thiamine 100 mg p.o. daily. Celso Moran MD cc: [id number] TT: 11/09/2016 14:28:41 Confirmation # [id number] Dictation # [id number] tn 11/09/2016 15:29:28
[2016-11-09 17:14] LABS: BLOOD UREA NITROGEN 12 mg/dL (7-21); CALCIUM 7.9 mg/dL (8.4-10.5); CARBON DIOXIDE 32 mmol/L (21-33); CHLORIDE 98 mmol/L (98-107); GFR AFRICAN-AMERICAN > 60; GLUCOSE,RANDOM 107 mg/dL (70-110); MAGNESIUM 2.2 mg/dL (1.7-2.2); POTASSIUM 3.8 mmol/L (3.6-5.0); SODIUM 133 mmol/L (132-148)
[2016-11-10] MEDS ORDERED: Vancomycin 1gm in NS 250ml 250 ML IVPB ONE (00:01)
[2016-11-10] MEDS: metroNIDAZOLE IV 500 mg/100 ml 100 ML IVPB SCH ×3 (05:08→22:00)
[2016-11-10] MEDS: Potassium Chl 10 mEq in D5-1/2 1,000 ML IV SCH ×2 (05:08→19:00)
[2016-11-10] MEDS: Morphine 2 mg/ml ISec IVP PRN ×2 (05:14→20:19)
[2016-11-10 07:48] LABS: ADD MANUAL DIFF? NO
[2016-11-10 07:52] LABS: EOS # 0.1 (0.0-0.7); EOS % 0.4 % (1.5-5.0); GRAN # 11.44 (1.4-6.5); GRAN % 82.7 % (50.0-68.0); HEMATOCRIT 29.7 % (42.0-52.0); LYMPH # 1.1 (1.2-3.4); LYMPH % 8.2 % (22.0-35.0); MEAN CELL VOLUME 74.6 fL (80.0-105.0); MEAN CORPUSCULAR HEMOGLOBIN 26.9 pg (25.0-35.0); MEAN PLATELET VOLUME 9.7 fl (7.0-11.0); MONO # 1.2 (0.1-0.6); MONO % 8.7 % (1.0-6.0); PLATELET COUNT 260 10^3/uL (120.0-450.0); RED CELL DISTRIBUTION WIDTH 15.5 % (11.5-14.5); WHITE BLOOD COUNT 13.8 10^3/ul (4.5-11.0)
[2016-11-10 08:05] LABS: ALB/GLOB RATIO 0.7 (1.1-1.8); ALKALINE PHOSPHATASE 77 U/L (38-133); ALT/SGPT 29 U/L (7-56); AST/SGOT 27 U/L (15-59); BILIRUBIN,TOTAL 0.3 mg/dL (0.2-1.3); BLOOD UREA NITROGEN 10 mg/dL (7-21); CALCIUM 7.9 mg/dL (8.4-10.5); CARBON DIOXIDE 27 mmol/L (21-33); CHLORIDE 101 mmol/L (95-110); GFR AFRICAN-AMERICAN > 60; GLUCOSE,RANDOM 116 mg/dL (70-110); LIPASE 492 U/L (23-300); POTASSIUM 3.9 mmol/L (3.6-5.0); SODIUM 134 mmol/L (132-148); TOTAL PROTEIN 5.1 g/dL (5.8-8.3)
[2016-11-10 08:07] LABS: AMYLASE 395 U/L (35-125)
--- NOTE | 2016-11-10 10:17 | PN ---
DATE: 11/10/2016 SUBJECTIVE: The patient is lying in bed complaining of abdominal pain. He states that he has not be en receiving pain medications. PHYSICAL EXAMINATION: VITAL SIGNS: Reveal temperature of 99.4, blood pressure 136/96, heart rate 90. HEENT: Reveals sclerae to be muddy. CHEST: Reveals scattered rales. HEART: Reveals regular rate and rhythm. ABDOMEN: Softly distended with mild diffuse tenderness. There is some voluntary guarding. EXTREMITIES: Show no edema. LABORATORY DATA: Reveal white blood cell count 13.8, hemoglobin 10.7. Stool for occult blood is neg ative. Chemistries reveal albumin 2.1. AST, ALT normal. Amylase 395, lipase 492. IMPRESSION: A 51-year-old male on methadone with chronic recurrent abdominal pain, chronic pancreati tis with focal segmental colitis involving the descending colon with some pericolonic inflammation. The patient had less pain yesterday. RECOMMENDATIONS: We will repeat CT scan of the abdomen and pelvis with oral and IV contrast for reev aluation of his abdominal pain. Javier Gonzáles MD cc: [phone] TT: 11/10/2016 10:16:56 Confirmation # [id number] Dictation # [id number] [place]
[2016-11-10] MEDS ORDERED: Barium Sulfate Susp 2.1% w/v, 2.0% w/w 450 mL Bottle PO ONE (10:21)
[2016-11-10] MEDS: cefTRIAXone 1 gm 100 ML IVPB SCH (11:24)
[2016-11-10] MEDS: Potassium Chloride 20 mEq ER Tab PO SCH ×2 (11:25→14:16)
--- NOTE | 2016-11-10 11:56 | CP.PCM.PN ---
<Chetna Rivers - Last Filed: 11/10/16 16:23> Subjective - Date & Time of Evaluation Date of Evaluation: 11/10/16 Time of Evaluation: 11:25 - Subjective Subjective: SURGERY NOTE FOR DR. GRAY Pt seen and evaluated at the bedside. Pt reports abdominal pain, and four episodes this AM of non-bloody emesis. Reports a watery BM overnight as well. Afebrile overnight. Objective - Vital Signs/Intake and Output Vital Signs (last 24 hours): Temp Pulse Resp BP Pulse Ox 99.4 F 90 20 136/96 H 96 11/10/16 05:23 11/10/16 05:23 11/10/16 05:23 11/10/16 05:23 11/10/16 05:23 Intake and Output: 11/10/16 11/10/16 06:59 18:59 Intake Total 1670 Output Total 0 Balance 1670 - Medications Medications: Current Medications Acetaminophen (Tylenol 325mg Tab) 650 mg PO Q4H PRN PRN Reason: Fever >100.4 F Metronidazole (Flagyl) 100 mls @ 100 mls/hr IVPB Q8 [facility] PRN Reason: Protocol Last Admin: 11/10/16 05:08 Dose: 100 mls/hr Ceftriaxone Sodium (Rocephin 1 Gram Ivpb) 100 mls @ 100 mls/hr IVPB DAILY [facility] PRN Reason: Protocol Last Admin: 11/10/16 11:24 Dose: 100 mls/hr Potassium Chloride/Dextrose/Sod Cl (Potassium Chl 10 Meq In D5-1/2ns) 1,000 mls @ 100 mls/hr IV .Q10H [facility] Last Admin: 11/10/16 05:08 Dose: 100 mls/hr Ketorolac Tromethamine (Toradol) 15 mg IVP Q8 PRN PRN Reason: Pain, Mild (1-3) Last Admin: 11/09/16 22:12 Dose: 15 mg Methadone HCl (Methadone) 10 mg PO Q8 PRN PRN Reason: Pain, moderate (4-7) Last Admin: 11/09/16 21:19 Dose: 10 mg Morphine Sulfate (Morphine) 2 mg IVP Q4 PRN PRN Reason: Pain, moderate (4-7) Last Admin: 11/10/16 05:14 Dose: 2 mg Ondansetron HCl (Zofran Inj) 4 mg IVP Q4 PRN PRN Reason: Nausea/Vomiting Last Admin: 11/09/16 21:19 Dose: 4 mg Pantoprazole Sodium (Protonix Inj) 40 mg IVP BID [facility] Last Admin: 11/10/16 11:25 Dose: 40 mg Potassium Chloride (K-Dur 20 Meq Er Tab) 20 meq PO TID [facility] Stop: 11/10/16 23:00 Last Admin: 11/10/16 11:25 Dose: 20 meq Thiamine HCl (Vitamin B1 Tab) 100 mg PO DAILY [facility] Last Admin: 11/10/16 11:25 Dose: 100 mg - Labs Labs: 11/10/16 06:30 11/10/16 06:30 PT 13.9 Seconds (9.9-11.8) H 11/07/16 02:20 INR 1.29 (0.93-1.08) H 11/07/16 02:20 APTT 30.7 Seconds (23.7-30.8) 11/07/16 02:20 - Additional Findings Additional findings: - Constitutional Appears: No Apparent Distress - Head Exam Head Exam: ATRAUMATIC, NORMAL INSPECTION, NORMOCEPHALIC - Eye Exam Eye Exam: EOMI - ENT Exam ENT Exam: Mucous Membranes Moist - Respiratory Exam Respiratory Exam: NORMAL BREATHING PATTERN. absent: Accessory Muscle Use, Respiratory Distress - Cardiovascular Exam Cardiovascular Exam: tachycardia, +S1, +S2 - GI/Abdominal Exam GI & Abdominal Exam: Distended, Tenderness of LUQ. - Extremities Exam Extremities exam: Positive for: normal inspection - Back Exam Back exam: NORMAL INSPECTION - Neurological Exam Neurological exam: Alert - Skin Skin Exam: Intact, Normal Color Assessment and Plan - Assessment and Plan (Free Text) Assessment: 51 yo M w/PMHx of EOTH abuse presents for Pancreatitis, chronic residual aortic dissection, thoracic aneurism h/o thoracic dissection repair, colitis Plan: -AB CT on 11/10 shows probable acute pancreatitis, multiple pseudocysts and generalized ascities. F/U GI recs -Pain control -Serial abd exam -Smoking cessation -Recommend AA -We will continue to follow to be D/W Dr. Gray <Finn Gray - Last Filed: 11/13/16 23:49> Subjective - Date & Time of Evaluation Date of Evaluation: 11/10/16 Time of Evaluation: 18:30 Objective - Vital Signs/Intake and Output Vital Signs (last 24 hours): Temp Pulse Resp BP Pulse Ox 99 F 83 20 156/98 H 96 11/13/16 18:00 11/13/16 22:00 11/13/16 18:00 11/13/16 18:00 11/13/16 06:00 Intake and Output: 11/13/16 11/14/16 18:59 06:59 Intake Total 4490 0 Output Total 1100 200 Balance 3390 -200 - Medications Medications: Current Medications Acetaminophen (Tylenol 325mg Tab) 650 mg PO Q4H PRN PRN Reason: Fever >100.4 F Last Admin: 11/13/16 13:34 Dose: 650 mg Folic Acid (Folic Acid) 1 mg IVP DAILY [facility] Last Admin: 11/13/16 10:39 Dose: 1 mg Piperacillin Sod/Tazobactam Sod (Zosyn 3.375 In Ns 100ml) 100 mls @ 200 mls/hr IVPB Q6 [facility] PRN Reason: Protocol Stop: 11/18/16 08:01 Last Admin: 11/13/16 23:27 Dose: 200 mls/hr Multivitamins/Vitamin C 10 ml/Amino Acids/Electrolytes/Dextrose 2,010 mls @ 83 mls/hr IV .Q24H [facility] Stop: 11/15/16 17:59 Last Admin: 11/13/16 18:22 Dose: 83 mls/hr Fat Emulsion Intravenous (Intralipid 20%) 250 mls @ 21 mls/hr IV DAILY@1800 [facility] Stop: 11/15/16 05:55 Last Admin: 11/13/16 18:21 Dose: 21 mls/hr Sodium Chloride (Sodium Chloride 0.9%) 1,000 mls @ 75 mls/hr IV .[id number] [facility] Last Admin: 11/13/16 13:33 Dose: 75 mls/hr Ketorolac Tromethamine (Toradol) 15 mg IM Q8 PRN PRN Reason: Pain, Mild (1-3) Last Admin: 11/13/16 20:26 Dose: 15 mg Ondansetron HCl (Zofran Inj) 4 mg IVP Q4 PRN PRN Reason: Nausea/Vomiting Last Admin: 11/13/16 18:46 Dose: 4 mg Pantoprazole Sodium (Protonix Inj) 40 mg IVP BID [facility] Last Admin: 11/13/16 20:18 Dose: 40 mg Thiamine HCl (Vitamin B1 Tab) 100 mg PO DAILY [facility] Last Admin: 11/13/16 13:32 Dose: 100 mg - Labs Labs: 11/13/16 08:50 11/13/16 08:50 PT 13.6 Seconds (9.9-11.8) H 11/12/16 05:30 INR 1.26 (0.93-1.08) H 11/12/16 05:30 APTT 35.8 Seconds (23.7-30.8) H 11/12/16 05:30 Assessment and Plan - Assessment and Plan (Free Text) Assessment: Patient was seen and examined by me. I agree with assessment and plan as per resident's note. Patient to be NPO. Start IV fluids. Follow-up lipase in our amylase.
[2016-11-10] MEDS ORDERED: Iohexol 350 MG/100 ML VIAL ONE (12:48)
--- NOTE | 2016-11-10 14:16 | CT ---
PROCEDURE: CT Abdomen and Pelvis with contrast HISTORY: abdominal pain COMPARISON: CT abdomen/pelvis 11/07/[address] angio chest and abdomen 08/31/2015 and 12/10/2014. TECHNIQUE: Contrast dose: 100 mL Omnipaque 350 Radiation dose: Total exam DLP = 543.75 mGy-cm. This CT exam was performed using one or more of the following dose reduction techniques: Automated exposure control, adjustment of the mA and/or kV according to patient size, and/or use of iterative reconstruction technique. FINDINGS: LOWER THORAX: Please note that this examination was extended to include the thorax because of the presence of dissection noted by the technologist at the time of the examination. LIVER: Normal size, contour and attenuation. Nonspecific periportal edema. No mass. No biliary dilatation. GALLBLADDER AND BILE DUCTS: Unremarkable. PANCREAS: Large pseudocyst in the distal body/ tail of the pancreas. Multiple adjacent pseudocysts. Pseudocysts are seen in the wall of the descending colon. There is fluid surrounding the pancreas, particularly the distal body and tail, consistent with pancreatitis. Please correlate with clinical and laboratory evaluation. There is mild pancreatic ductal dilatation. SPLEEN: Unremarkable. ADRENALS: Unremarkable. No mass. KIDNEYS AND URETERS: Unremarkable. No hydronephrosis. No solid mass. VASCULATURE: Status post surgical repair of type a aortic dissection. The ascending thoracic aorta has been repaired. The dissection is now seen extending from the arch to the iliac bifurcation. The larger lumen is the false lumen and the smaller lumen is the true lumen. The celiac, SMA and renal arteries arise from the true lumen. The right iliac artery is the continuation of the true lumen. The left iliac artery arises from the false lumen. There is no evidence of thoracic or abdominal aortic aneurysm. Or these findings remain unchanged from prior examinations. At the time of the CT angiogram of 12/10/2014, the patient had not yet had the ascending thoracic aortic repair. BOWEL: As noted above, there are pseudocysts in the wall of the descending colon. The wall of the descending colon is diffusely thickened. This may be the result of a primary colitis or may be secondary to pancreatitis in the distal body and tail of the pancreas. There are pseudocyst seen in the wall of the stomach. There is a loculated mesenteric collection seen on series 2, image 111 through 127, possibly a pseudocyst. There is generalized ascites. There is mural thickening involving the 3rd and 4th portion of the duodenum. There is no evidence of bowel obstruction. There is no generalized colitis. APPENDIX: Normal appendix. PERITONEUM: Generalized ascites. Pseudocysts as above. LYMPH NODES: Unremarkable. No enlarged lymph nodes. BLADDER: Unremarkable. REPRODUCTIVE: Normal prostate BONES: No fracture. Chronic grade 2 anterolisthesis at L5-S1 with extensive bony spurring about the anterior aspect of L5 and S1. This is essentially unchanged in appearance from examination of 12/10/2014. OTHER FINDINGS: None. IMPRESSION: Status post repair of type a dissection involving thoracic aorta as well as abdominal aorta extending to the level of the iliac arteries. There is contrast enhancement seen within both the true and false lumen from the aortic arch to the iliac arteries. There is probable acute pancreatitis with a large pancreatic pseudocyst. Pancreatic ductal dilatation. Pseudocysts in the wall of the descending colon and stomach and possible pseudocyst within the small bowel mesenteric. Generalized ascites. Small bilateral pleural effusions with lower lobe compressive atelectasis, left greater than right.
--- NOTE | 2016-11-10 14:45 | PN ---
DATE: 11/10/2016 SUBJECTIVE: The patient developed abdominal pain, nausea and vomiting after eating last night. No r etrosternal chest pain. PHYSICAL EXAMINATION: VITAL SIGNS: Blood pressure 128/82, heart rate 95, temperature 98.8, respirations 20. HEENT: Pale conjunctivae. CHEST: Clear. HEART: S1, S2 regular. ABDOMEN: Epigastric tenderness. EXTREMITIES: No edema. LABORATORIES: Today's hemoglobin and hematocrit 10.7 and 29.7, white count, 13.8, platelet count 260 ,000. Today's SMA-7 is within normal limits except for glucose 116, calcium is below normal at 7.9. Lipase is elevated at 492, amylase at 395. ASSESSMENT: 1. Acute pancreatitis. 2. ETOH abuse. 3. Status post type B aortic dissection and repair. 4. Improved hypokalemia. RECOMMENDATIONS: Continue current IV Flagyl. Discontinue oral K-Dur and continue IV normal saline w ith potassium replacement intravenously. Celso Moran MD cc: [id number] TT: 11/10/2016 14:44:49 Confirmation # [id number] Dictation # [id number] tn
--- NOTE | 2016-11-10 15:20 | CP.PCM.PN ---
<Mayco Ruggiero - Last Filed: 11/10/16 15:31> Subjective - Date & Time of Evaluation Date of Evaluation: 11/10/16 Time of Evaluation: 15:19 - Subjective Subjective: Pt seen and examined at bedside. Pt states after he ate first solid meal last night, he became very nauseous and vomited 2 times. Pt had diet changed to liquids at that time. Pt still admits to abdominal pain. Denies CP, SOB, fevers , chills. Objective - Vital Signs/Intake and Output Vital Signs (last 24 hours): Temp Pulse Resp BP Pulse Ox 98.8 F 95 H 20 128/82 96 11/10/16 12:00 11/10/16 12:00 11/10/16 12:00 11/10/16 12:00 11/10/16 05:23 Intake and Output: 11/10/16 11/10/16 06:59 18:59 Intake Total 1670 Output Total 0 Balance 1670 - Medications Medications: Current Medications Acetaminophen (Tylenol 325mg Tab) 650 mg PO Q4H PRN PRN Reason: Fever >100.4 F Metronidazole (Flagyl) 100 mls @ 100 mls/hr IVPB Q8 [facility] PRN Reason: Protocol Last Admin: 11/10/16 14:18 Dose: 100 mls/hr Ceftriaxone Sodium (Rocephin 1 Gram Ivpb) 100 mls @ 100 mls/hr IVPB DAILY [facility] PRN Reason: Protocol Last Admin: 11/10/16 11:24 Dose: 100 mls/hr Potassium Chloride/Dextrose/Sod Cl (Potassium Chl 10 Meq In D5-1/2ns) 1,000 mls @ 100 mls/hr IV .Q10H [facility] Last Admin: 11/10/16 05:08 Dose: 100 mls/hr Ketorolac Tromethamine (Toradol) 15 mg IVP Q8 PRN PRN Reason: Pain, Mild (1-3) Last Admin: 11/09/16 22:12 Dose: 15 mg Methadone HCl (Methadone) 10 mg PO Q8 PRN PRN Reason: Pain, moderate (4-7) Last Admin: 11/09/16 21:19 Dose: 10 mg Morphine Sulfate (Morphine) 2 mg IVP Q4 PRN PRN Reason: Pain, moderate (4-7) Last Admin: 11/10/16 05:14 Dose: 2 mg Ondansetron HCl (Zofran Inj) 4 mg IVP Q4 PRN PRN Reason: Nausea/Vomiting Last Admin: 11/10/16 14:18 Dose: 4 mg Pantoprazole Sodium (Protonix Inj) 40 mg IVP BID [facility] Last Admin: 11/10/16 11:25 Dose: 40 mg Thiamine HCl (Vitamin B1 Tab) 100 mg PO DAILY [facility] Last Admin: 11/10/16 11:25 Dose: 100 mg - Labs Labs: 11/10/16 06:30 11/10/16 06:30 PT 13.9 Seconds (9.9-11.8) H 11/07/16 02:20 INR 1.29 (0.93-1.08) H 11/07/16 02:20 APTT 30.7 Seconds (23.7-30.8) 11/07/16 02:20 - Constitutional Appears: Non-toxic, No Acute Distress - Head Exam Head Exam: ATRAUMATIC, NORMAL INSPECTION, NORMOCEPHALIC - Respiratory Exam Respiratory Exam: Clear to Ausculation Bilateral, NORMAL BREATHING PATTERN. absent: Rales, Rhonchi, Wheezes - Cardiovascular Exam Cardiovascular Exam: RRR, +S1, +S2 - GI/Abdominal Exam GI & Abdominal Exam: Soft, Tenderness, Normal Bowel Sounds Additional comments: Diffuse tenderness throughout abdomen to palpation - Extremities Exam Extremities Exam: Normal Inspection. absent: Calf Tenderness, Pedal Edema - Neurological Exam Neurological Exam: Alert, Awake, Oriented x3 - Psychiatric Exam Psychiatric exam: Normal Affect, Normal Mood - Skin Skin Exam: Intact, Normal Color, Warm Assessment and Plan - Assessment and Plan (Free Text) Plan: 50 y/o male with PMH of pancreatitis, alcoholism, thoracic aneurysm presenting with abdominal pain. Pt complaining of abdominal pain and had increased WBC. Repeat abdominal CT found old thoracic aorta surgical changes, acute pancreatitis with large pancreatic pseudocyst, pancreatic ductal dilatation, along with pseudocysts in the wall of the descending colon and stomach, see full report. Pt will continue abx at this time. 1. Acute pancreatitis -Liquid diet at this time due to N/V -Repeat CT as above -morphine prn -Toradol -Methadone 2. Hx of HTN -Stable at this time -Continue to monitor 3. Hx of thoracic/abdominal aneurysm -Surgery states no surgical intervention at this time -Cardiology following -Echo: EF 61% 4. focal colitis on CT/elevated white count -Increase in WBC -Continue flagyl -blood culture shows coagulase negative staph. Will repeat -stool c diff studies negative 5. Hx of HLD -Continue Lipitor 6. EtOH/Substance abuse -Urine tox : Opiate, Methadone + -Thiamine -Counseled on abstinence 7. GI/DVT ppx -SCDs -protonix Seen, reviewed, and discussed with attending. Monik, PGY-1 <Johanny HUGHES,Luis Manuel - Last Filed: 11/10/16 16:29> Objective - Vital Signs/Intake and Output Vital Signs (last 24 hours): Temp Pulse Resp BP Pulse Ox 98.8 F 95 H 20 128/82 96 11/10/16 12:00 11/10/16 12:00 11/10/16 12:00 11/10/16 12:00 11/10/16 05:23 Intake and Output: 11/10/16 11/10/16 06:59 18:59 Intake Total 1670 Output Total 0 400 Balance 1670 -400 - Medications Medications: Current Medications Acetaminophen (Tylenol 325mg Tab) 650 mg PO Q4H PRN PRN Reason: Fever >100.4 F Metronidazole (Flagyl) 100 mls @ 100 mls/hr IVPB Q8 [facility] PRN Reason: Protocol Last Admin: 11/10/16 14:18 Dose: 100 mls/hr Ceftriaxone Sodium (Rocephin 1 Gram Ivpb) 100 mls @ 100 mls/hr IVPB DAILY [facility] PRN Reason: Protocol Last Admin: 11/10/16 11:24 Dose: 100 mls/hr Potassium Chloride/Dextrose/Sod Cl (Potassium Chl 10 Meq In D5-1/2ns) 1,000 mls @ 100 mls/hr IV .Q10H [facility] Last Admin: 11/10/16 05:08 Dose: 100 mls/hr Ketorolac Tromethamine (Toradol) 15 mg IVP Q8 PRN PRN Reason: Pain, Mild (1-3) Last Admin: 11/09/16 22:12 Dose: 15 mg Methadone HCl (Methadone) 10 mg PO Q8 PRN PRN Reason: Pain, moderate (4-7) Last Admin: 11/09/16 21:19 Dose: 10 mg Morphine Sulfate (Morphine) 2 mg IVP Q4 PRN PRN Reason: Pain, moderate (4-7) Last Admin: 11/10/16 05:14 Dose: 2 mg Ondansetron HCl (Zofran Inj) 4 mg IVP Q4 PRN PRN Reason: Nausea/Vomiting Last Admin: 11/10/16 14:18 Dose: 4 mg Pantoprazole Sodium (Protonix Inj) 40 mg IVP BID [facility] Last Admin: 11/10/16 11:25 Dose: 40 mg Thiamine HCl (Vitamin B1 Tab) 100 mg PO DAILY [facility] Last Admin: 11/10/16 11:25 Dose: 100 mg - Labs Labs: 11/10/16 06:30 11/10/16 06:30 PT 13.9 Seconds (9.9-11.8) H 11/07/16 02:20 INR 1.29 (0.93-1.08) H 11/07/16 02:20 APTT 30.7 Seconds (23.7-30.8) 11/07/16 02:20 Attending/Attestation - Attestation I have personally seen and examined this patient.: Yes I have fully participated in the care of the patient.: Yes I have reviewed all pertinent clinical information, including history, physical exam and plan: Yes Notes (Text): Patient was seen and examined with medical coding specialist .Agreed with resident assessment and plan. 51 yrs old male with PMH of type A Aortic disection repair, c/o worsening abdominal pain, WBC is mildly up since yesterday, has low grade fever, repeat CT scan of abdomen and Pelvis showed colititis, no new changes, will continue IV antibiotics, has been restarted on clear liquid. One blood culture is growing coagulase negative staph, likely contaminated , we will follow up repeat blood cultures. Management plan was discussed in detail with patient Education was provided.
[2016-11-10] MEDS ORDERED: Sodium Chloride 0.9% 1,000 ML IV SCH (16:45)
--- NOTE | 2016-11-10 17:50 | RAD ---
HISTORY: evaluate for free air COMPARISON: Chest x-ray performed 08/31/15, CT abdomen and pelvis with contrast performed 11/10/16 TECHNIQUE: Chest, one view. FINDINGS: Examination limited by habitus and obliquity. Images were obtained with the patient in semi-erect position. LUNGS: Bibasilar atelectasis. Please note that chest x-ray has limited sensitivity for the detection of pulmonary masses. PLEURA: Small bilateral pleural effusions. No definite pneumothorax . CARDIOVASCULAR: Heart size appears top normal. Atherosclerotic calcifications. Median sternotomy wires. OSSEOUS STRUCTURES: Degenerative changes. VISUALIZED UPPER ABDOMEN: Unremarkable. OTHER FINDINGS: None. IMPRESSION: Bibasilar atelectasis. Small bilateral pleural effusions.
[2016-11-10 18:43] LABS: ADD MANUAL DIFF? NO
[2016-11-10 18:47] LABS: BASO # 0.03 K/mm3 (0.0-2.0); BASO % 0.2 % (0.0-3.0); EOS # 0.1 (0.0-0.7); EOS % 0.6 % (1.5-5.0); GRAN # 11.49 (1.4-6.5); GRAN % 81.1 % (50.0-68.0); HEMATOCRIT 28.6 % (42.0-52.0); LYMPH # 1.2 (1.2-3.4); LYMPH % 8.3 % (22.0-35.0); MEAN CELL VOLUME 74.9 fL (80.0-105.0); MEAN CORPUSCULAR HEMOGLOBIN 27.5 pg (25.0-35.0); MEAN CORPUSCULAR HGB CONC 36.7 g/dl (31.0-37.0); MEAN PLATELET VOLUME 9.2 fl (7.0-11.0); MONO # 1.4 (0.1-0.6); MONO % 9.8 % (1.0-6.0); PLATELET COUNT 261 10^3/uL (120.0-450.0); RED CELL DISTRIBUTION WIDTH 15.7 % (11.5-14.5); WHITE BLOOD COUNT 14.2 10^3/ul (4.5-11.0)
--- NOTE | 2016-11-10 20:06 | CP.PCM.CON ---
<Cristopher Damon - Last Filed: 11/10/16 20:36> History of Present Illness - History of Present Illness History of Present Illness: This is a 50 yo male with pmh alcoholism, pancreatitis and thoracic aneurysm who initially presented with abdominal pain x 2 day. Pt began suddenly 2 days ago while pt was lying in bed. It has happened before and the pt was dx with pancreatitis. Cannot say last time. Pain was in lower abdomen, sometimes going to epigastric region. It radiates to back. /10, getting worse. Burning sensation. Did not take any meds at home. It is constant. Nothing makes it better or worse. Denies fevers, chills. Reports multiple episodes of vomiting, non bloody, non bilious. Yellowish in color. Reports one episode of non bloody diarrhea. Denies urinary sx, bloody BMs. No recent travel, no sick contacts. Pt was admitted to medical floor with pancreatitis. Pt has developed extremely tender and distended abdomen. Repeat abdominal CT shows development of large pancreatic pseudocyst. ICU consult requested and the pt will be transferred to ICU. PMH: Pancreatitis, alcoholism, thoracic aneurysm, HLD PSH: aneurysm repair 2014 Allergies: NKDA Home meds: metoprolol, folic acid, asa, atorvastatin FH: denies Social hx: 1 ppd/27 yrs. 1 pint of erika each day for 20 yrs. Past heroin user. Lives with parents in . Review of Systems - Review of Systems All systems: reviewed and no additional remarkable complaints except Review of Systems: Negative except as stated in HPI. Past Patient History - Infectious Disease Hx of Infectious Diseases: None - Tetanus Immunizations Tetanus Immunization: Unknown - Past Medical History & Family History Past Medical History?: Yes Past Family History: Reviewed and not pertinent - Past Social History Smoking Status: Smoker Currrent Status Unknown Chewing Tobacco Use: No Cigar Use: No Alcohol: > 2 Drinks/Day Drugs: Opiates Home Situation {Lives}: With Family Domestic Violence: Negative - CARDIAC Hx Cardiac Disorders: Yes (Thoracic aneurysm) Hx Hypercholesterolemia: Yes Hx Hypertension: Yes - PULMONARY Hx Respiratory Disorders: No Other/Comment: SMOKER - NEUROLOGICAL Hx Neurological Disorder: No - HEENT Hx HEENT Problems: No - RENAL Hx Chronic Kidney Disease: No - ENDOCRINE/METABOLIC Hx Endocrine Disorders: No - HEMATOLOGICAL/ONCOLOGICAL Hx Blood Disorders: No Hx Cancer: No - INTEGUMENTARY Hx Dermatological Problems: No - MUSCULOSKELETAL/RHEUMATOLOGICAL Hx Arthritis: Yes Hx Falls: No Hx Unsteady Gait: Yes (Uses cane to ambulate) - GASTROINTESTINAL Hx Pancreatitis: Yes - GENITOURINARY/GYNECOLOGICAL Hx Genitourinary Disorders: No - PSYCHIATRIC Hx Psychophysiologic Disorder: Yes (Etoh abuse, Substance abuse (Heroin), smoker.) Hx Substance Use: Yes (Heroin) - SURGICAL HISTORY Hx Surgeries: Yes (Aneurysm repair) - ANESTHESIA Hx Anesthesia: Yes Hx Anesthesia Reactions: No Meds Allergies/Adverse Reactions: Allergies Allergy/AdvReac Type Severity Reaction Status Date / Time No Known Allergies Allergy Verified 08/31/15 18:29 - Medications Medications: Current Medications Acetaminophen (Tylenol 325mg Tab) 650 mg PO Q4H PRN PRN Reason: Fever >100.4 F Metronidazole (Flagyl) 100 mls @ 100 mls/hr IVPB Q8 [facility] PRN Reason: Protocol Last Admin: 11/10/16 14:18 Dose: 100 mls/hr Ceftriaxone Sodium (Rocephin 1 Gram Ivpb) 100 mls @ 100 mls/hr IVPB DAILY [facility] PRN Reason: Protocol Last Admin: 11/10/16 11:24 Dose: 100 mls/hr Potassium Chloride/Dextrose/Sod Cl (Potassium Chl 10 Meq In D5-1/2ns) 1,000 mls @ 100 mls/hr IV .Q10H [facility] Last Admin: 11/10/16 19:00 Dose: 100 mls/hr Ketorolac Tromethamine (Toradol) 15 mg IVP Q8 PRN PRN Reason: Pain, Mild (1-3) Last Admin: 11/10/16 17:41 Dose: 15 mg Methadone HCl (Methadone) 10 mg PO Q8 PRN PRN Reason: Pain, moderate (4-7) Last Admin: 11/09/16 21:19 Dose: 10 mg Morphine Sulfate (Morphine) 2 mg IVP Q4 PRN PRN Reason: Pain, moderate (4-7) Last Admin: 11/10/16 05:14 Dose: 2 mg Ondansetron HCl (Zofran Inj) 4 mg IVP Q4 PRN PRN Reason: Nausea/Vomiting Last Admin: 11/10/16 14:18 Dose: 4 mg Pantoprazole Sodium (Protonix Inj) 40 mg IVP BID [facility] Last Admin: 11/10/16 17:41 Dose: 40 mg Thiamine HCl (Vitamin B1 Tab) 100 mg PO DAILY [facility] Last Admin: 11/10/16 11:25 Dose: 100 mg Physical Exam - Constitutional Appears: Non-toxic, No Acute Distress - Head Exam Head Exam: ATRAUMATIC, NORMAL INSPECTION, NORMOCEPHALIC - Eye Exam Eye Exam: EOMI - ENT Exam ENT Exam: Mucous Membranes Moist - Neck Exam Neck exam: Positive for: Normal Inspection - Respiratory Exam Respiratory Exam: Decreased Breath Sounds - Cardiovascular Exam Cardiovascular Exam: REGULAR RHYTHM, +S1, +S2 - GI/Abdominal Exam GI & Abdominal Exam: Distended, Firm, Tenderness - Extremities Exam Extremities exam: Positive for: normal inspection - Back Exam Back exam: NORMAL INSPECTION - Neurological Exam Neurological exam: Alert, Oriented x3 - Psychiatric Exam Psychiatric exam: Normal Affect, Normal Mood - Skin Skin Exam: Dry, Intact, Normal Color, Warm Results - Vital Signs Recent Vital Signs: Last Vital Signs Temp 98.8 F 11/10/16 12:00 Pulse 98 H 11/10/16 18:00 Resp 20 11/10/16 12:00 BP 128/82 11/10/16 12:00 Pulse Ox 96 11/10/16 05:23 - Labs Result Diagrams: 11/10/16 18:30 11/10/16 06:30 Labs: Laboratory Results - last 24 hr 11/10/16 11/10/16 06:30 18:30 WBC 13.8 H 14.2 H RBC 3.98 3.82 Hgb 10.7 L 10.5 L Hct 29.7 L 28.6 L MCV 74.6 L 74.9 L MCH 26.9 27.5 MCHC 36.0 36.7 RDW 15.5 H 15.7 H Plt Count 260 261 MPV 9.7 9.2 Gran % 82.7 H 81.1 H Lymph % (Auto) 8.2 L 8.3 L [place] % (Auto) 8.7 H 9.8 H Eos % (Auto) 0.4 L 0.6 L Baso % (Auto) 0.0 0.2 Gran # 11.44 H 11.49 H Lymph # 1.1 L 1.2 [place] # 1.2 H 1.4 H Eos # 0.1 0.1 Baso # 0.00 0.03 Sodium 134 Potassium 3.9 Chloride 101 Carbon Dioxide 27 Anion Gap 10 BUN 10 Creatinine 0.5 Est GFR ( Amer) > 60 Est GFR (Non-Af Amer) > 60 Random Glucose 116 H Calcium 7.9 L Total Bilirubin 0.3 AST 27 ALT 29 Alkaline Phosphatase 77 Total Protein 5.1 L Albumin 2.1 L Globulin 3.0 Albumin/Globulin Ratio 0.7 L Amylase 395 H Lipase 492 H 511 H Assessment & Plan - Assessment and Plan (Free Text) Assessment: This is a 51 year old male with past medical hx of pancreatitis, alcoholism, thoracic aneurysm presenting with abdominal pain. Pt complaining of abdominal pain and had increased WBC. Repeat abdominal CT found old thoracic aorta surgical changes, acute pancreatitis with large pancreatic pseudocyst, pancreatic ductal dilatation, along with pseudocysts in the wall of the descending colon and stomach. ICU consult requested due to distended/acute abdomen. Pt will be transferred to ICU. 1. Acute pancreatitis -Liquid diet at this time due to N/V -Repeat CT as above -morphine prn -Toradol -Methadone -transfer to ICU 2. Hx of HTN -Stable at this time -Continue to monitor 3. Hx of thoracic/abdominal aneurysm -Surgery states no surgical intervention at this time -Cardiology following -Echo: EF 61% 4. focal colitis on CT/elevated white count -Increase in WBC -Continue flagyl -blood culture shows coagulase negative staph. Will repeat -stool c diff studies negative 5. Hx of HLD -Continue Lipitor 6. EtOH/Substance abuse -Urine tox : Opiate, Methadone + -Thiamine -Counseled on abstinence 7. GI/DVT ppx -SCDs -protonix Discussed with Dr. Theodore <Ewelina HUGHES,Reddy - Last Filed: 11/11/16 06:55> Meds - Medications Medications: Current Medications Acetaminophen (Tylenol 325mg Tab) 650 mg PO Q4H PRN PRN Reason: Fever >100.4 F Metronidazole (Flagyl) 100 mls @ 100 mls/hr IVPB Q8 [facility] PRN Reason: Protocol Last Admin: 11/11/16 06:25 Dose: 100 mls/hr Ceftriaxone Sodium (Rocephin 1 Gram Ivpb) 100 mls @ 100 mls/hr IVPB DAILY [facility] PRN Reason: Protocol Last Admin: 11/10/16 11:24 Dose: 100 mls/hr Potassium Chloride/Dextrose/Sod Cl (Potassium Chl 10 Meq In D5-1/2ns) 1,000 mls @ 100 mls/hr IV .Q10H [facility] Last Admin: 11/10/16 19:00 Dose: 100 mls/hr Ketorolac Tromethamine (Toradol) 15 mg IM Q8 PRN PRN Reason: Pain, Mild (1-3) Last Admin: 11/10/16 23:46 Dose: 15 mg Methadone HCl (Methadone) 10 mg PO Q8 PRN PRN Reason: Pain, moderate (4-7) Last Admin: 11/09/16 21:19 Dose: 10 mg Ondansetron HCl (Zofran Inj) 4 mg IVP Q4 PRN PRN Reason: Nausea/Vomiting Last Admin: 11/10/16 14:18 Dose: 4 mg Pantoprazole Sodium (Protonix Inj) 40 mg IVP BID [facility] Last Admin: 11/10/16 17:41 Dose: 40 mg Thiamine HCl (Vitamin B1 Tab) 100 mg PO DAILY [facility] Last Admin: 11/10/16 11:25 Dose: 100 mg Results - Vital Signs Recent Vital Signs: Last Vital Signs Temp 99.3 F 11/11/16 06:27 Pulse 99 H 11/11/16 06:00 Resp 19 11/11/16 06:00 BP 138/90 11/11/16 06:00 Pulse Ox 96 11/11/16 06:00 - Labs Result Diagrams: 11/10/16 18:30 11/10/16 06:30 Labs: Laboratory Results - last 24 hr 11/10/16 11/10/16 11/10/16 06:30 18:30 20:15 WBC 13.8 H 14.2 H RBC 3.98 3.82 Hgb 10.7 L 10.5 L Hct 29.7 L 28.6 L MCV 74.6 L 74.9 L MCH 26.9 27.5 MCHC 36.0 36.7 RDW 15.5 H 15.7 H Plt Count 260 261 MPV 9.7 9.2 Gran % 82.7 H 81.1 H Lymph % (Auto) 8.2 L 8.3 L [place] % (Auto) 8.7 H 9.8 H Eos % (Auto) 0.4 L 0.6 L Baso % (Auto) 0.0 0.2 Gran # 11.44 H 11.49 H Lymph # 1.1 L 1.2 [place] # 1.2 H 1.4 H Eos # 0.1 0.1 Baso # 0.00 0.03 PT 14.2 H INR 1.31 H APTT 35.9 H Sodium 134 Potassium 3.9 Chloride 101 Carbon Dioxide 27 Anion Gap 10 BUN 10 Creatinine 0.5 Est GFR ( Amer) > 60 Est GFR (Non-Af Amer) > 60 Random Glucose 116 H Calcium 7.9 L Total Bilirubin 0.3 AST 27 ALT 29 Alkaline Phosphatase 77 Total Protein 5.1 L Albumin 2.1 L Globulin 3.0 Albumin/Globulin Ratio 0.7 L Amylase 395 H Lipase 492 H 511 H 11/11/16 06:00 WBC RBC Hgb Hct MCV MCH MCHC RDW Plt Count MPV Gran % Lymph % (Auto) [place] % (Auto) Eos % (Auto) Baso % (Auto) Gran # Lymph # [place] # Eos # Baso # PT INR APTT Sodium Potassium Chloride Carbon Dioxide Anion Gap BUN Creatinine Est GFR ( Amer) Est GFR (Non-Af Amer) Random Glucose Calcium Total Bilirubin AST ALT Alkaline Phosphatase Total Protein Albumin Globulin Albumin/Globulin Ratio Amylase 578 H Lipase 518 H Attending/Attestation - Attestation I have personally seen and examined this patient.: Yes I have fully participated in the care of the patient.: Yes I have reviewed all pertinent clinical information: Yes Notes (Text): 11/11/16 06:51 -I agree with the above consult note completed by the resident physician. -Briefly, the patient is a 51 year old AAM with a history of chronic pancreatitis, chronic alcohol abuse, thoracic aneurysm (s/p repair in 2014) and HLD who was admitted 2 days ago for sepsis due to focal colitis and acute on chronic pancreatitis. Since admission, he's developed progressivley worsening, markedly tender epigastric abdominal pain and a large pancreatic pseudocyst. Given these new developments, general surgery was concerned for potential deterioration of the patient and therefore he was transferred overnight to the ICU for closer monitoring. He is on empiric IV antibiotics (with ID consult on board) and NPO.
[2016-11-10 20:50] LABS: INR 1.31 (0.93-1.08); PARTIAL THROMBOPLASTIN TIME 35.9 Seconds (23.7-30.8)
--- NOTE | 2016-11-10 21:01 | CP.PCM.CON ---
History of Present Illness - History of Present Illness History of Present Illness: 50 year old male with PMH of alcoholism, history of pancreatitis, history of thoracic aneurysm S/P repair in 2015, dyslipidemia came in complaining of 2 days of loose bowel movement as well as abdominal pain. He is now diagnosed with pancreatitis and focal colitis. As part of the initial work up, blood cx were done which is showing gram positive cocci. Infectious Diseases consult is requested to further evaluate and manage. Currently the patient denies fever or chills, no nausea or vomiting. His loose bowel movement is a little bit better. He still has abdominal pain but it is a little better. He denies dysuria, no headache or dizziness, no chest pain, no SOB, no cough or colds. The patient denies indwelling hardware. Social hx: at least a 25 pack year smoking history; chronic alcohol intake for the past 20 years; former heroin user; the patient lives with his parents in [place] Review of Systems - Review of Systems All systems: reviewed and no additional remarkable complaints except (as per HPI ) Past Patient History - Infectious Disease Hx of Infectious Diseases: None - Tetanus Immunizations Tetanus Immunization: Unknown - Past Medical History & Family History Past Medical History?: Yes Past Family History: Reviewed and not pertinent - Past Social History Smoking Status: Smoker Currrent Status Unknown - CARDIAC Hx Cardiac Disorders: Yes (Thoracic aneurysm) Hx Hypercholesterolemia: Yes Hx Hypertension: Yes - PULMONARY Hx Respiratory Disorders: No Other/Comment: SMOKER - NEUROLOGICAL Hx Neurological Disorder: No - HEENT Hx HEENT Problems: No - RENAL Hx Chronic Kidney Disease: No - ENDOCRINE/METABOLIC Hx Endocrine Disorders: No - HEMATOLOGICAL/ONCOLOGICAL Hx Blood Disorders: No Hx Cancer: No - INTEGUMENTARY Hx Dermatological Problems: No - MUSCULOSKELETAL/RHEUMATOLOGICAL Hx Arthritis: Yes Hx Falls: No Hx Unsteady Gait: Yes (Uses cane to ambulate) - GASTROINTESTINAL Hx Pancreatitis: Yes - GENITOURINARY/GYNECOLOGICAL Hx Genitourinary Disorders: No - PSYCHIATRIC Hx Psychophysiologic Disorder: Yes (Etoh abuse, Substance abuse (Heroin), smoker.) Hx Substance Use: Yes (Heroin) - SURGICAL HISTORY Hx Surgeries: Yes (Aneurysm repair) - ANESTHESIA Hx Anesthesia: Yes Hx Anesthesia Reactions: No Meds Allergies/Adverse Reactions: Allergies Allergy/AdvReac Type Severity Reaction Status Date / Time No Known Allergies Allergy Verified 08/31/15 18:29 - Medications Medications: Current Medications Acetaminophen (Tylenol 325mg Tab) 650 mg PO Q4H PRN PRN Reason: Fever >100.4 F Metronidazole (Flagyl) 100 mls @ 100 mls/hr IVPB Q8 [facility] PRN Reason: Protocol Last Admin: 11/09/16 21:19 Dose: 100 mls/hr Ceftriaxone Sodium (Rocephin 1 Gram Ivpb) 100 mls @ 100 mls/hr IVPB DAILY [facility] PRN Reason: Protocol Last Admin: 11/09/16 09:46 Dose: 100 mls/hr Potassium Chloride/Dextrose/Sod Cl (Potassium Chl 10 Meq In D5-1/2ns) 1,000 mls @ 100 mls/hr IV .Q10H [facility] Last Admin: 11/09/16 20:37 Dose: 100 mls/hr Ketorolac Tromethamine (Toradol) 15 mg IVP Q8 PRN PRN Reason: Pain, Mild (1-3) Last Admin: 11/09/16 22:12 Dose: 15 mg Labetalol HCl (Trandate) 5 mg IV Q6 PRN PRN Reason: Systolic Blood Pressure Methadone HCl (Methadone) 10 mg PO Q8 PRN PRN Reason: Pain, moderate (4-7) Last Admin: 11/09/16 21:19 Dose: 10 mg Morphine Sulfate (Morphine) 2 mg IVP Q4 PRN PRN Reason: Pain, moderate (4-7) Last Admin: 11/08/16 05:41 Dose: 2 mg Ondansetron HCl (Zofran Inj) 4 mg IVP Q4 PRN PRN Reason: Nausea/Vomiting Last Admin: 11/09/16 21:19 Dose: 4 mg Pantoprazole Sodium (Protonix Inj) 40 mg IVP BID [facility] Last Admin: 11/09/16 17:13 Dose: 40 mg Potassium Chloride (K-Dur 20 Meq Er Tab) 20 meq PO TID [facility] Stop: 11/10/16 23:00 Last Admin: 11/09/16 17:13 Dose: 20 meq Thiamine HCl (Vitamin B1 Tab) 100 mg PO DAILY [facility] Last Admin: 11/09/16 09:18 Dose: 100 mg Physical Exam - Constitutional Appears: Non-toxic, No Acute Distress - Head Exam Head Exam: NORMAL INSPECTION - ENT Exam ENT Exam: Mucous Membranes Moist - Neck Exam Neck exam: Negative for: Lymphadenopathy, Meningismus - Respiratory Exam Respiratory Exam: Decreased Breath Sounds - Cardiovascular Exam Cardiovascular Exam: +S1, +S2 - GI/Abdominal Exam GI & Abdominal Exam: Soft. absent: Tenderness Results - Vital Signs Recent Vital Signs: Last Vital Signs Temp 98.8 F 11/09/16 18:00 Pulse 96 H 11/09/16 21:57 Resp 16 11/09/16 18:00 BP 120/85 11/09/16 18:00 Pulse Ox 97 11/09/16 09:00 - Labs Result Diagrams: 11/10/16 18:30 11/10/16 06:30 Labs: Laboratory Results - last 24 hr 11/09/16 11/09/16 11/09/16 06:00 11:56 16:55 WBC 11.7 H RBC 3.86 Hgb 10.4 L Hct 28.9 L MCV 74.9 L MCH 26.9 MCHC 36.0 RDW 15.8 H Plt Count 262 MPV 9.3 Gran % 80.9 H Lymph % (Auto) 7.7 L [place] % (Auto) 11.3 H Eos % (Auto) 0.0 L Baso % (Auto) 0.1 Gran # 9.46 H Lymph # 0.9 L [place] # 1.3 H Eos # 0.0 Baso # 0.01 Sodium 136 133 Potassium 2.9 L* D 3.8 Chloride 100 98 Carbon Dioxide 26 32 Anion Gap 13 7 L BUN 12 12 Creatinine 0.5 0.6 Est GFR ( Amer) > 60 > 60 Est GFR (Non-Af Amer) > 60 > 60 Random Glucose 72 107 Calcium 7.7 L 7.9 L Magnesium 2.2 Total Bilirubin 0.6 AST 27 ALT 35 Alkaline Phosphatase 56 Total Protein 5.0 L Albumin 2.1 L Globulin 2.9 Albumin/Globulin Ratio 0.7 L Amylase 238 H Lipase 258 Stool Occult Blood Negative Assessment & Plan - Assessment and Plan (Free Text) Plan: Assessment Sepsis probably secondary to acute focal colitis, on top of chronic pancreatitis Coagulase negative staph in 1 of 2 sets, R/O contamination alcoholism history of pancreatitis history of thoracic aneurysm S/P repair in 2014 dyslipidemia Plan Continue Rocephin and Flagyl; gave a dose of IV Vancomycin and repeated blood cx Will follow clinically
[2016-11-11] MEDS: Morphine 2 mg/ml ISec IVP PRN (00:45)
[2016-11-11] MEDS: metroNIDAZOLE IV 500 mg/100 ml 100 ML IVPB SCH (06:25)
[2016-11-11 06:28] LABS: AMYLASE 578 U/L (35-125); LIPASE 518 U/L (23-300)
--- NOTE | 2016-11-11 08:14 | CP.PCM.PN ---
<SilvestreChetna - Last Filed: 11/11/16 15:13> Subjective - Date & Time of Evaluation Date of Evaluation: 11/11/16 Time of Evaluation: 07:30 - Subjective Subjective: SURGERY NOTE FOR DR. RAMIREZ Pt seen and evaluated at bedside. Pt c/o lower back pain, denies abdominal pain. Denies N/V, and reports passing gas and normal urination. Afebrile overnight. Objective - Vital Signs/Intake and Output Vital Signs (last 24 hours): Temp Pulse Resp BP Pulse Ox 99.3 F 99 H 19 138/90 96 11/11/16 06:27 11/11/16 06:00 11/11/16 06:00 11/11/16 06:00 11/11/16 06:00 Intake and Output: 11/11/16 11/11/16 06:59 18:59 Intake Total 600 Output Total 350 Balance 250 - Medications Medications: Current Medications Acetaminophen (Tylenol 325mg Tab) 650 mg PO Q4H PRN PRN Reason: Fever >100.4 F Potassium Chloride/Dextrose/Sod Cl (Potassium Chl 10 Meq In D5-1/2ns) 1,000 mls @ 100 mls/hr IV .Q10H [facility] Last Admin: 11/10/16 19:00 Dose: 100 mls/hr Piperacillin Sod/Tazobactam Sod (Zosyn 3.375 In Ns 100ml) 100 mls @ 200 mls/hr IVPB Q6 [facility] PRN Reason: Protocol Stop: 11/18/16 08:01 Ketorolac Tromethamine (Toradol) 15 mg IM Q8 PRN PRN Reason: Pain, Mild (1-3) Last Admin: 11/10/16 23:46 Dose: 15 mg Methadone HCl (Methadone) 10 mg PO Q8 PRN PRN Reason: Pain, moderate (4-7) Last Admin: 11/09/16 21:19 Dose: 10 mg Methadone HCl (Methadone) 50 mg PO DAILY [facility] Stop: 11/12/16 10:01 Ondansetron HCl (Zofran Inj) 4 mg IVP Q4 PRN PRN Reason: Nausea/Vomiting Last Admin: 11/11/16 05:30 Dose: 4 mg Pantoprazole Sodium (Protonix Inj) 40 mg IVP BID [facility] Last Admin: 11/10/16 17:41 Dose: 40 mg Thiamine HCl (Vitamin B1 Tab) 100 mg PO DAILY [facility] Last Admin: 11/10/16 11:25 Dose: 100 mg - Labs Labs: 11/10/16 18:30 11/10/16 06:30 PT 14.2 Seconds (9.9-11.8) H 11/10/16 20:15 INR 1.31 (0.93-1.08) H 11/10/16 20:15 APTT 35.9 Seconds (23.7-30.8) H 11/10/16 20:15 - Head Exam Head Exam: NORMAL INSPECTION - Eye Exam Eye Exam: EOMI - Respiratory Exam Respiratory Exam: NORMAL BREATHING PATTERN - Cardiovascular Exam Cardiovascular Exam: Tachycardia - GI/Abdominal Exam GI & Abdominal Exam: Distended, Firm. absent: Tenderness - Exam Additional comments: Hoang in - Neurological Exam Neurological Exam: Alert, Awake - Skin Skin Exam: Intact, Normal Color Assessment and Plan - Assessment and Plan (Free Text) Assessment: 51 yo M w/PMHx of EOTH abuse presents for Pancreatitis, chronic residual aortic dissection, thoracic aneurism h/o thoracic dissection repair, colitis. Repeat ab CT showed new multiple pseudocysts and dilation of pancreatic duct, acute pancreatitis. MRCP: multiple tiny T2 hyperdensities consistent with dilated side duct radicles arising from ...dilated pancreatic duct. Multiple pseudocyts.... abdominal ascites. Plan: -Pt under critical care -NG tube drained 200 cc overnight until pt self removed at 7:20 am -Hoang 150cc overnight, hoang inserted around 12 am -NPO, TPN -continue abx -We will continue to follow D/W Dr. Ramirez <Finn Ramirez - Last Filed: 11/13/16 23:52> Subjective - Date & Time of Evaluation Date of Evaluation: 11/11/16 Time of Evaluation: 12:05 Objective - Vital Signs/Intake and Output Vital Signs (last 24 hours): Temp Pulse Resp BP Pulse Ox 99 F 83 20 156/98 H 96 11/13/16 18:00 11/13/16 22:00 11/13/16 18:00 11/13/16 18:00 11/13/16 06:00 Intake and Output: 11/13/16 11/14/16 18:59 06:59 Intake Total 4490 0 Output Total 1100 200 Balance 3390 -200 - Medications Medications: Current Medications Acetaminophen (Tylenol 325mg Tab) 650 mg PO Q4H PRN PRN Reason: Fever >100.4 F Last Admin: 11/13/16 13:34 Dose: 650 mg Folic Acid (Folic Acid) 1 mg IVP DAILY [facility] Last Admin: 11/13/16 10:39 Dose: 1 mg Piperacillin Sod/Tazobactam Sod (Zosyn 3.375 In Ns 100ml) 100 mls @ 200 mls/hr IVPB Q6 [facility] PRN Reason: Protocol Stop: 11/18/16 08:01 Last Admin: 11/13/16 23:27 Dose: 200 mls/hr Multivitamins/Vitamin C 10 ml/Amino Acids/Electrolytes/Dextrose 2,010 mls @ 83 mls/hr IV .Q24H [facility] Stop: 11/15/16 17:59 Last Admin: 11/13/16 18:22 Dose: 83 mls/hr Fat Emulsion Intravenous (Intralipid 20%) 250 mls @ 21 mls/hr IV DAILY@1800 [facility] Stop: 11/15/16 05:55 Last Admin: 11/13/16 18:21 Dose: 21 mls/hr Sodium Chloride (Sodium Chloride 0.9%) 1,000 mls @ 75 mls/hr IV .[id number] [facility] Last Admin: 11/13/16 13:33 Dose: 75 mls/hr Ketorolac Tromethamine (Toradol) 15 mg IM Q8 PRN PRN Reason: Pain, Mild (1-3) Last Admin: 11/13/16 20:26 Dose: 15 mg Ondansetron HCl (Zofran Inj) 4 mg IVP Q4 PRN PRN Reason: Nausea/Vomiting Last Admin: 11/13/16 18:46 Dose: 4 mg Pantoprazole Sodium (Protonix Inj) 40 mg IVP BID [facility] Last Admin: 11/13/16 20:18 Dose: 40 mg Thiamine HCl (Vitamin B1 Tab) 100 mg PO DAILY [facility] Last Admin: 11/13/16 13:32 Dose: 100 mg - Labs Labs: 11/13/16 08:50 11/13/16 08:50 PT 13.6 Seconds (9.9-11.8) H 11/12/16 05:30 INR 1.26 (0.93-1.08) H 11/12/16 05:30 APTT 35.8 Seconds (23.7-30.8) H 11/12/16 05:30 Assessment and Plan - Assessment and Plan (Free Text) Assessment: Patient was seen and examined by me. I agree with assessment and plan as per resident's note.
--- NOTE | 2016-11-11 08:29 | CP.CCUPN ---
<Shanon Wilkins - Last Filed: 11/11/16 10:46> CCU Subjective - Physician Review Events Since Last Encounter (Free Text): 11/11/16 08:26 Patient seen and examined bedside. No acute events overnight. Patient requesting methadone. Denies CP, SOB, vomiting, rashes, edema. Called [facility] ([facility] [phone]), patient's usual dose of methadone is 120mg ; recommended increasing methadone dose by 10mg every 3 days since it was multiple days since patient was admitted and had not received methadone, will need to restart regimen -- 50mg today and tomorrow, 60mg x3 days etc until reach 120mg. Patient had 200cc output from NGT since placement last night. Patient pulled out NGT this morning. Critical Care Time Spent (in minutes): 40 CCU Objective - Vital Signs / Intake & Output Vital Signs (Last 4 hours): Vital Signs Temp Pulse Resp BP Pulse Ox 11/11/16 06:27 99.3 F 11/11/16 06:00 99 H 19 138/90 96 11/11/16 05:39 102 H 22 67 L Intake and Output (Last 8hrs): Intake & Output 11/10/16 11/11/16 11/11/16 22:59 06:59 14:59 Intake Total 600 Output Total 400 350 Balance -400 250 Intake: IV 600 Left Wrist 600 Oral 0 Output: Drainage 200 Left Nare 200 Urine 400 150 Urine, Voided 400 150 Stool 0 Urine/Stool Mix 0 Other: Voiding Method Indwelling Catheter # Bowel Movements 0 - Physical Exam Head: Positive for: Atraumatic, Normocephalic Pupils: Positive for: PERRL Extroacular Muscles: Positive for: EOMI Conjunctiva: Positive for: Normal Mouth: Positive for: Moist Mucous Membranes Neck: Positive for: Normal Range of Motion Respiratory/Chest: Positive for: Clear to Auscultation, Good Air Exchange. Negative for: Respiratory Distress, Accessory Muscle Use Cardiovascular: Positive for: Normal S1, S2, Tachycardic (90s). Negative for: Murmurs, Gallop Abdomen: Positive for: Tenderness (epigastric and lower abd TTP), Normal Bowel Sounds. Negative for: Distention, Peritoneal Signs, Other (No Lei sign, no Carrero-Goldstein sign) Back: Positive for: Normal Inspection Upper Extremity: Positive for: Normal Inspection. Negative for: Cyanosis, Edema Lower Extremity: Positive for: Normal Inspection. Negative for: Edema Neurological: Positive for: GCS=15, CN II-XII Intact, Speech Normal Skin: Positive for: Warm, Dry, Normal Color. Negative for: Rashes Psychiatric: Positive for: Alert, Oriented x 3, Normal Insight, Normal Concentration - Medications Active Medications: Active Medications Generic Name Dose Route Start Last Admin Trade Name Freq PRN Reason Stop Dose Admin Acetaminophen 650 mg 11/08/16 19:26 Tylenol 325mg Tab PO Q4H PRN Fever >100.4 F Potassium Chloride/Dextrose/Sod Cl 1,000 mls @ 100 mls/hr 11/09/16 08:00 19:00 Potassium Chl 10 Meq In D5-1/2ns IV 100 mls/hr .Q10H CESAR Administration Piperacillin Sod/Tazobactam Sod 100 mls @ 200 mls/hr 11/11/16 08:00 Zosyn 3.375 In Ns 100ml IVPB 11/18/16 08:01 Q6 CESAR Protocol Ketorolac Tromethamine 15 mg 11/10/16 23:42 11/10/16 23:46 Toradol IM 15 mg Q8 PRN Administration Pain, Mild (1-3) Methadone HCl 50 mg 11/11/16 10:00 Methadone PO 11/12/16 10:01 DAILY CESAR Ondansetron HCl 4 mg 11/07/16 03:34 11/11/16 05:30 Zofran Inj IVP 4 mg Q4 PRN Administration Nausea/Vomiting Pantoprazole Sodium 40 mg 11/07/16 18:00 11/10/16 17:41 Protonix Inj IVP 40 mg BID CESAR Administration Thiamine HCl 100 mg 11/07/16 11:30 11/10/16 11:25 Vitamin B1 Tab PO 100 mg DAILY CESAR Administration - Patient Studies Lab Studies: Microbiology Studies 11/10/16 07:30 Blood Culture - Preliminary Blood-Venous NO GROWTH AFTER 24 HOURS 11/10/16 07:00 Blood Culture - Preliminary Blood-Venous NO GROWTH AFTER 24 HOURS 11/09/16 11:56 Ova and Parasite Concentrate Exam - Final Stool Lab Studies 11/11/16 11/10/16 11/10/16 Range/Units 06:00 20:15 18:30 WBC 14.2 H (4.5-11.0) 10^3/ul RBC 3.82 (3.5-6.1) 10^6/uL Hgb 10.5 L (14.0-18.0) gm/dL Hct 28.6 L (42.0-52.0) % MCV 74.9 L (80.0-105.0) fL MCH 27.5 (25.0-35.0) pg MCHC 36.7 (31.0-37.0) g/dl RDW 15.7 H (11.5-14.5) % Plt Count 261 (120.0-450.0) 10^3/uL MPV 9.2 (7.0-11.0) fl Gran % 81.1 H (50.0-68.0) % Lymph % (Auto) 8.3 L (22.0-35.0) % [place] % (Auto) 9.8 H (1.0-6.0) % Eos % (Auto) 0.6 L (1.5-5.0) % Baso % (Auto) 0.2 (0.0-3.0) % Gran # 11.49 H (1.4-6.5) Lymph # 1.2 (1.2-3.4) [place] # 1.4 H (0.1-0.6) Eos # 0.1 (0.0-0.7) Baso # 0.03 (0.0-2.0) K/mm3 PT 14.2 H (9.9-11.8) Seconds INR 1.31 H (0.93-1.08) APTT 35.9 H (23.7-30.8) Seconds Amylase 578 H (35-125) U/L Lipase 518 H 511 H (23-300) U/L Laboratory Results - last 24 hr 11/10/16 11/10/16 11/11/16 18:30 20:15 06:00 WBC 14.2 H RBC 3.82 Hgb 10.5 L Hct 28.6 L MCV 74.9 L MCH 27.5 MCHC 36.7 RDW 15.7 H Plt Count 261 MPV 9.2 Gran % 81.1 H Lymph % (Auto) 8.3 L [place] % (Auto) 9.8 H Eos % (Auto) 0.6 L Baso % (Auto) 0.2 Gran # 11.49 H Lymph # 1.2 [place] # 1.4 H Eos # 0.1 Baso # 0.03 PT 14.2 H INR 1.31 H APTT 35.9 H Amylase 578 H Lipase 511 H 518 H Review of Systems - Constitutional Constitutional: absent: Fever, Chills - EENT Eyes: absent: Change in Vision - Cardiovascular Cardiovascular: absent: Chest Pain, Diaphoresis, Dyspnea, Palpitations - Respiratory Respiratory: absent: Cough, Dyspnea, Pain on Inspiration - Gastrointestinal Gastrointestinal: Abdominal Pain (lower abdomen), Nausea. absent: Diarrhea, Vomiting - Genitourinary Genitourinary: absent: Dysuria, Flank Pain - Integumentary Integumentary: absent: New Lesions - Neurological Neurological: absent: Dizziness, Headaches Critical Care Progress Note - Ventilator Checklist PUD Prophalyxis: Yes DVT Prophylaxis: Yes - Prophylaxis GI Prophylaxis GI: PPI - Prophylaxis DVT Prophylaxis DVT: SCDs Assessment/Plan - Assessment and Plan (Free Text) Assessment: 51 yo M w h/o chronic pancreatitis, EtOH abuse, HLD and stable thoracic and abdominal aortic aneurysm admitted to ICU for observation due to new pancreatic pseudocysts and pancreatic ductal dilation. Plan: Neuro: AAOx3, NAD h/o drug abuse on methadone. Dose instructions for resumption of Methadone as per [facility] - 50mg today and tomorrow, 60mg Monday x 3 days. Increase dose by 10mg every 3 days until patient is discharged and follows up at [facility] or reach 120mg daily Maintain normothermia CV: HD stable. Continue to monitor Maintain MAP >65 Pulm: No acute issues. Doing well on room air, spo2 in high 90s-100%. Maintain spo2>90 GI: Acute on chronic pancreatitis with acute development of pancreatic pseudocysts IR evaluation as per surgery recs MRCP pending as per GI given pancreatic ductal dilation Continue monitoring for signs of pancreatic necrosis and clinical deterioration GI ppx. NPO, IVF Zofran PRN n/v. Toradol PRN pain h/o chronic EtOH abuse - continue thiamine, folate Renal: No acute issues. Continue monitoring renal function Endo: Maintain euglycemia 140-180 ID: Zosyn for colitis as per ID Heme: Hb stable. Continue to monitor. No signs of overt bleeding DVT/GI ppx: Protonix, NPO, IVF, SCDs - Date & Time Date: 11/11/16 Time: 10:49 <Hayes Gresham - Last Filed: 11/11/16 13:46> CCU Objective - Vital Signs / Intake & Output Vital Signs (Last 4 hours): Vital Signs Temp Pulse Resp BP Pulse Ox 11/11/16 13:00 96 H 63 H 149/80 95 11/11/16 12:25 99 H 24 96 11/11/16 12:00 104 H 16 134/75 98 11/11/16 11:56 100.5 F H 11/11/16 11:00 129/68 97 11/11/16 10:50 103 H 98 11/11/16 10:26 101 H 18 140/84 96 11/11/16 10:25 101 H 15 97 11/11/16 09:48 101 H 19 11/11/16 09:47 101 H 21 11/11/16 09:46 104 H 53 H Intake and Output (Last 8hrs): Intake & Output 11/10/16 11/11/16 11/11/16 22:59 06:59 14:59 Intake Total 600 Output Total 400 350 Balance -400 250 Intake: IV 600 Left Wrist 600 Oral 0 Output: Drainage 200 Left Nare 200 Urine 400 150 Urine, Voided 400 150 Stool 0 Urine/Stool Mix 0 Other: Voiding Method Indwelling Catheter Indwelling Catheter # Bowel Movements 0 - Medications Active Medications: Active Medications Generic Name Dose Route Start Last Admin Trade Name Freq PRN Reason Stop Dose Admin Acetaminophen 650 mg 11/08/16 19:26 Tylenol 325mg Tab PO Q4H PRN Fever >100.4 F Folic Acid 1 mg 11/11/16 11:15 11/11/16 11:38 Folic Acid IVP 1 mg DAILY CESAR Administration Potassium Chloride/Dextrose/Sod Cl 1,000 mls @ 100 mls/hr 11/09/16 08:00 09:03 Potassium Chl 10 Meq In D5-1/2ns IV 100 mls/hr .Q10H CESAR Administration Piperacillin Sod/Tazobactam Sod 100 mls @ 200 mls/hr 11/11/16 08:00 11/11/16 13 :00 Zosyn 3.375 In Ns 100ml IVPB 11/18/16 08:01 200 mls/hr Q6 CESAR Administration Protocol Ketorolac Tromethamine 15 mg 11/10/16 23:42 11/10/16 23:46 Toradol IM 15 mg Q8 PRN Administration Pain, Mild (1-3) Methadone HCl 50 mg 11/11/16 10:00 11/11/16 09:01 Methadone PO 11/12/16 10:01 50 mg DAILY CESAR Administration Ondansetron HCl 4 mg 11/07/16 03:34 11/11/16 13:07 Zofran Inj IVP 4 mg Q4 PRN Administration Nausea/Vomiting Pantoprazole Sodium 40 mg 11/07/16 18:00 11/11/16 09:01 Protonix Inj IVP 40 mg BID CESAR Administration Phytonadione 10 mg 11/11/16 13:30 Vitamin K Inj SC 11/13/16 10:01 DAILY CESAR Thiamine HCl 100 mg 11/07/16 11:30 11/11/16 09:01 Vitamin B1 Tab PO 100 mg DAILY CESAR Administration - Patient Studies Lab Studies: Microbiology Studies 11/09/16 11:56 Stool Culture - Final Stool NO SALMONELLA, SHIGELLA OR CAMPYLOBACTER ISOLATED. 11/10/16 07:30 Blood Culture - Preliminary Blood-Venous NO GROWTH AFTER 24 HOURS 11/10/16 07:00 Blood Culture - Preliminary Blood-Venous NO GROWTH AFTER 24 HOURS 11/09/16 11:56 Ova and Parasite Concentrate Exam - Final Stool Lab Studies 11/11/16 11/11/16 11/10/16 Range/Units 09:50 06:00 20:15 WBC 15.9 H (4.5-11.0) 10^3/ul RBC 3.85 (3.5-6.1) 10^6/uL Hgb 10.4 L (14.0-18.0) gm/dL Hct 28.9 L (42.0-52.0) % MCV 75.1 L (80.0-105.0) fL MCH 27.0 (25.0-35.0) pg MCHC 36.0 (31.0-37.0) g/dl RDW 15.8 H (11.5-14.5) % Plt Count 275 (120.0-450.0) 10^3/uL MPV 9.1 (7.0-11.0) fl Gran % 82.1 H (50.0-68.0) % Lymph % (Auto) 6.9 L (22.0-35.0) % [place] % (Auto) 10.7 H (1.0-6.0) % Eos % (Auto) 0.2 L (1.5-5.0) % Baso % (Auto) 0.1 (0.0-3.0) % Gran # 13.04 H (1.4-6.5) Lymph # 1.1 L (1.2-3.4) [place] # 1.7 H (0.1-0.6) Eos # 0.0 (0.0-0.7) Baso # 0.02 (0.0-2.0) K/mm3 PT 14.2 H (9.9-11.8) Seconds INR 1.31 H (0.93-1.08) APTT 35.9 H (23.7-30.8) Seconds Sodium 133 (132-148) mmol/L Potassium 4.3 (3.6-5.0) mmol/L Chloride 98 (98-107) mmol/L Carbon Dioxide 32 (21-33) mmol/L Anion Gap 7 L (10-20) BUN 5 L (7-21) mg/dL Creatinine 0.5 (0.5-1.4) mg/dL Est GFR ( Amer) > 60 Est GFR (Non-Af Amer) > 60 Random Glucose 97 (70-110) mg/dL Calcium 8.0 L (8.4-10.5) mg/dL Total Bilirubin 0.4 (0.2-1.3) mg/dL AST 30 (15-59) U/L ALT 33 (7-56) U/L Alkaline Phosphatase 64 (38-133) U/L Total Protein 5.0 L (5.8-8.3) g/dL Albumin 2.1 L (3.0-4.8) g/dL Globulin 3.0 gm/dL Albumin/Globulin Ratio 0.7 L (1.1-1.8) Amylase 578 H (35-125) U/L Lipase 518 H (23-300) U/L HIV 1&2 Ag/Ab, 4th Gen (Nonreactive) 04/06/17 04/06/17 Range/Units 18:30 09:58 WBC 14.2 H (4.5-11.0) 10^3/ul RBC 3.82 (3.5-6.1) 10^6/uL Hgb 10.5 L (14.0-18.0) gm/dL Hct 28.6 L (42.0-52.0) % MCV 74.9 L (80.0-105.0) fL MCH 27.5 (25.0-35.0) pg MCHC 36.7 (31.0-37.0) g/dl RDW 15.7 H (11.5-14.5) % Plt Count 261 (120.0-450.0) 10^3/uL MPV 9.2 (7.0-11.0) fl Gran % 81.1 H (50.0-68.0) % Lymph % (Auto) 8.3 L (22.0-35.0) % [place] % (Auto) 9.8 H (1.0-6.0) % Eos % (Auto) 0.6 L (1.5-5.0) % Baso % (Auto) 0.2 (0.0-3.0) % Gran # 11.49 H (1.4-6.5) Lymph # 1.2 (1.2-3.4) [place] # 1.4 H (0.1-0.6) Eos # 0.1 (0.0-0.7) Baso # 0.03 (0.0-2.0) K/mm3 PT (9.9-11.8) Seconds INR (0.93-1.08) APTT (23.7-30.8) Seconds Sodium (132-148) mmol/L Potassium (3.6-5.0) mmol/L Chloride (98-107) mmol/L Carbon Dioxide (21-33) mmol/L Anion Gap (10-20) BUN (7-21) mg/dL Creatinine (0.5-1.4) mg/dL Est GFR ( Amer) Est GFR (Non-Af Amer) Random Glucose (70-110) mg/dL Calcium (8.4-10.5) mg/dL Total Bilirubin (0.2-1.3) mg/dL AST (15-59) U/L ALT (7-56) U/L Alkaline Phosphatase (38-133) U/L Total Protein (5.8-8.3) g/dL Albumin (3.0-4.8) g/dL Globulin gm/dL Albumin/Globulin Ratio (1.1-1.8) Amylase (35-125) U/L Lipase 511 H (23-300) U/L HIV 1&2 Ag/Ab, 4th Gen Nonreactive (Nonreactive) Laboratory Results - last 24 hr 11/10/16 11/10/16 11/10/16 09:58 18:30 20:15 WBC 14.2 H RBC 3.82 Hgb 10.5 L Hct 28.6 L MCV 74.9 L MCH 27.5 MCHC 36.7 RDW 15.7 H Plt Count 261 MPV 9.2 Gran % 81.1 H Lymph % (Auto) 8.3 L [place] % (Auto) 9.8 H Eos % (Auto) 0.6 L Baso % (Auto) 0.2 Gran # 11.49 H Lymph # 1.2 [place] # 1.4 H Eos # 0.1 Baso # 0.03 PT 14.2 H INR 1.31 H APTT 35.9 H Sodium Potassium Chloride Carbon Dioxide Anion Gap BUN Creatinine Est GFR ( Amer) Est GFR (Non-Af Amer) Random Glucose Calcium Total Bilirubin AST ALT Alkaline Phosphatase Total Protein Albumin Globulin Albumin/Globulin Ratio Amylase Lipase 511 H HIV 1&2 Ag/Ab, 4th Gen Nonreactive 11/11/16 11/11/16 06:00 09:50 WBC 15.9 H RBC 3.85 Hgb 10.4 L Hct 28.9 L MCV 75.1 L MCH 27.0 MCHC 36.0 RDW 15.8 H Plt Count 275 MPV 9.1 Gran % 82.1 H Lymph % (Auto) 6.9 L [place] % (Auto) 10.7 H Eos % (Auto) 0.2 L Baso % (Auto) 0.1 Gran # 13.04 H Lymph # 1.1 L [place] # 1.7 H Eos # 0.0 Baso # 0.02 PT INR APTT Sodium 133 Potassium 4.3 Chloride 98 Carbon Dioxide 32 Anion Gap 7 L BUN 5 L Creatinine 0.5 Est GFR ( Amer) > 60 Est GFR (Non-Af Amer) > 60 Random Glucose 97 Calcium 8.0 L Total Bilirubin 0.4 AST 30 ALT 33 Alkaline Phosphatase 64 Total Protein 5.0 L Albumin 2.1 L Globulin 3.0 Albumin/Globulin Ratio 0.7 L Amylase 578 H Lipase 518 H HIV 1&2 Ag/Ab, 4th Gen Addendum Addendum: 11/11/16 13:39 patient was seen, examined and discussed teto irene with Dr. Wilkins at bedside. Her note reflects my exam, assessment and plan, except as below. Meds/Labs/ONE reviewed 51 yo etoh and drug abuser, on methadone tx for opiate dependency, no with acute on chronic pancreatitis and acute colitis. Abdo exam substantially worsened yesterday and ICU consult was requested by surgical team overnight. On repeated CT--pseudocysts and signs of acute pancreatitis, colitis and enteritis , but no free air, no bowel obstruction and no pancolitis. IR was contacted for pseudocyst drainage, meanwhile todays abdominal exam showed no peritoneal signs , no tenderness, but mild distention. Hemodyanmically and respiratory stable. Septic workup, cont abx, procalcitonin, ID follow up. ccm time 40 min
[2016-11-11] MEDS: Piperacillin/Tazobact 3.375 gm 100 ML IVPB SCH ×4 (08:34→23:57)
[2016-11-11] MEDS: Potassium Chl 10 mEq in D5-1/2 1,000 ML IV SCH ×2 (09:03→18:51)
[2016-11-11 09:56] LABS: ADD MANUAL DIFF? NO
[2016-11-11 09:58] LABS: BASO # 0.02 K/mm3 (0.0-2.0); BASO % 0.1 % (0.0-3.0); EOS % 0.2 % (1.5-5.0); GRAN # 13.04 (1.4-6.5); GRAN % 82.1 % (50.0-68.0); HEMATOCRIT 28.9 % (42.0-52.0); LYMPH # 1.1 (1.2-3.4); LYMPH % 6.9 % (22.0-35.0); MEAN CELL VOLUME 75.1 fL (80.0-105.0); MEAN PLATELET VOLUME 9.1 fl (7.0-11.0); MONO # 1.7 (0.1-0.6); MONO % 10.7 % (1.0-6.0); PLATELET COUNT 275 10^3/uL (120.0-450.0); RED CELL DISTRIBUTION WIDTH 15.8 % (11.5-14.5); WHITE BLOOD COUNT 15.9 10^3/ul (4.5-11.0)
[2016-11-11 10:07] LABS: ALB/GLOB RATIO 0.7 (1.1-1.8); ALKALINE PHOSPHATASE 64 U/L (38-133); ALT/SGPT 33 U/L (7-56); AST/SGOT 30 U/L (15-59); BILIRUBIN,TOTAL 0.4 mg/dL (0.2-1.3); BLOOD UREA NITROGEN 5 mg/dL (7-21); CARBON DIOXIDE 32 mmol/L (21-33); CHLORIDE 98 mmol/L (98-107); GFR AFRICAN-AMERICAN > 60; GLUCOSE,RANDOM 97 mg/dL (70-110); POTASSIUM 4.3 mmol/L (3.6-5.0); SODIUM 133 mmol/L (132-148)
--- NOTE | 2016-11-11 10:24 | PN ---
DATE: 11/11/2016 The patient was transferred to intensive care unit for concern about an acute abdomen as he developed increasing abdominal pain. He feels better this morning with almost complete resolution of his abdo darek pain. Repeat CT scan of the abdomen and pelvis performed yesterday showed the appearance of mu ltiple pseudocysts with 1 large pseudocyst measuring a little over 5 cm. He denies any nausea, vomit ing. PHYSICAL EXAMINATION: VITAL SIGNS: Reveal temperature of 99.3, blood pressure 138/90, heart rate 99. ABDOMEN: Softly distended, minimal diffuse tenderness. No rebound, no guarding. LABORATORY DATA: Reveal white blood cell count 15.9, hemoglobin 10.4. Chemistries reveal this morni ng, AST, ALT normal, amylase 578, lipase 518. IMPRESSION: A 51-year-old male with history of thoracic aneurysm repair with a chronic aortic dissec tion with a history of alcoholism and drug use on methadone, admitted to the hospital with abdominal pain, found to have on recent CAT scan multiple pseudocysts with 1 large pseudocyst measuring over 5 cm. RECOMMENDATIONS: 1. Will downgrade his diet to clear liquid diet. 2. MRCP to further delineate the anatomy of the pancreatic duct and the pseudocysts. 3. Interventional radiology evaluation for possible percutaneous cyst drainage. Javier Gonzáles MD cc: 79 TT: 11/11/2016 10:23:44 Confirmation # [id number] Dictation # [id number]
--- NOTE | 2016-11-11 10:29 | CP.PCM.PN ---
<Colin Rivers - Last Filed: 11/11/16 10:59> Subjective - Date & Time of Evaluation Date of Evaluation: 11/11/16 Time of Evaluation: 10:53 - Subjective Subjective: Pt s &e. Pt was sent to ICU for abd distension/abd pain/N/V. CT showed multiple psudocysts in pancreas and colon with pancreatic duct dilation. NGT was placed overnight. Pt pull it out this AM after 200cc output. Pain currently controlled. Objective - Vital Signs/Intake and Output Vital Signs (last 24 hours): Temp Pulse Resp BP Pulse Ox 100.2 F H 101 H 19 154/91 H 97 11/11/16 08:00 11/11/16 09:48 11/11/16 09:48 11/11/16 09:02 11/11/16 09:02 Intake and Output: 11/11/16 11/11/16 06:59 18:59 Intake Total 600 Output Total 350 Balance 250 - Medications Medications: Current Medications Acetaminophen (Tylenol 325mg Tab) 650 mg PO Q4H PRN PRN Reason: Fever >100.4 F Potassium Chloride/Dextrose/Sod Cl (Potassium Chl 10 Meq In D5-1/2ns) 1,000 mls @ 100 mls/hr IV .Q10H [facility] Last Admin: 11/11/16 09:03 Dose: 100 mls/hr Piperacillin Sod/Tazobactam Sod (Zosyn 3.375 In Ns 100ml) 100 mls @ 200 mls/hr IVPB Q6 CESAR PRN Reason: Protocol Stop: 11/18/16 08:01 Last Admin: 11/11/16 08:34 Dose: 200 mls/hr Ketorolac Tromethamine (Toradol) 15 mg IM Q8 PRN PRN Reason: Pain, Mild (1-3) Last Admin: 11/10/16 23:46 Dose: 15 mg Methadone HCl (Methadone) 50 mg PO DAILY [facility] Stop: 11/12/16 10:01 Last Admin: 11/11/16 09:01 Dose: 50 mg Ondansetron HCl (Zofran Inj) 4 mg IVP Q4 PRN PRN Reason: Nausea/Vomiting Last Admin: 11/11/16 09:05 Dose: 4 mg Pantoprazole Sodium (Protonix Inj) 40 mg IVP BID [facility] Last Admin: 11/11/16 09:01 Dose: 40 mg Thiamine HCl (Vitamin B1 Tab) 100 mg PO DAILY CESAR Last Admin: 11/11/16 09:01 Dose: 100 mg - Labs Labs: 11/11/16 09:50 11/11/16 09:50 PT 14.2 Seconds (9.9-11.8) H 11/10/16 20:15 INR 1.31 (0.93-1.08) H 11/10/16 20:15 APTT 35.9 Seconds (23.7-30.8) H 11/10/16 20:15 - Constitutional Appears: Non-toxic - Head Exam Head Exam: ATRAUMATIC, NORMAL INSPECTION, NORMOCEPHALIC - Eye Exam Eye Exam: EOMI, Normal appearance, PERRL Pupil Exam: NORMAL ACCOMODATION, PERRL - ENT Exam ENT Exam: Mucous Membranes Moist, Normal Exam - Neck Exam Neck Exam: Full ROM, Normal Inspection. absent: Lymphadenopathy - Respiratory Exam Respiratory Exam: Clear to Ausculation Bilateral, NORMAL BREATHING PATTERN - Cardiovascular Exam Cardiovascular Exam: Tachycardia, REGULAR RHYTHM, +S1, +S2. absent: Murmur - GI/Abdominal Exam GI & Abdominal Exam: Soft, Tenderness, Normal Bowel Sounds. absent: Distended, Firm, Guarding, Rigid, Pulsatile Mass, Rebound - Extremities Exam Extremities Exam: Full ROM, Normal Inspection - Back Exam Back Exam: NORMAL INSPECTION - Skin Skin Exam: Dry, Intact, Normal Color, Warm Assessment and Plan - Assessment and Plan (Free Text) Assessment: This is a 51 year old male with past medical hx of pancreatitis, alcoholism, thoracic aneurysm presenting with abdominal pain. Pt complaining of abdominal pain and had increased WBC. Repeat abdominal CT found old thoracic aorta surgical changes, acute pancreatitis with large pancreatic pseudocyst, pancreatic ductal dilatation, along with pseudocysts in the wall of the descending colon and stomach. 1. Abd pain with Multiple large Psudocysts: Pancraese, SB, Colon -IR drainage consult -NPO -Repeat CT as above -morphine prn -Toradol -Methadone -transferred to ICU 2. Hx of HTN -Stable at this time -Continue to monitor 3. Hx of thoracic/abdominal aneurysm -Surgery states no surgical intervention at this time -F/u with CardioThoracic surgeon who did the surgery. -Cardiology following -Echo: EF 61% 4. focal colitis on CT/elevated white count -Increase in WBC: 17k today -ABX per ID -Continue flagyl -blood culture shows coagulase negative staph. Will repeat -stool c diff studies negative 5. Hx of HLD -Continue Lipitor 6. EtOH/Substance abuse -Urine tox : Opiate, Methadone + -Thiamine -Counseled on abstinence 7. GI/DVT ppx -SCDs -protonix DW Attending <Luis Manuel Orlando MD - Last Filed: 11/11/16 16:56> Objective - Vital Signs/Intake and Output Vital Signs (last 24 hours): Temp Pulse Resp BP Pulse Ox 100.1 F H 108 H 20 139/83 96 11/11/16 16:00 11/11/16 16:00 11/11/16 16:00 11/11/16 16:00 11/11/16 16:00 Intake and Output: 11/11/16 11/11/16 06:59 18:59 Intake Total 2030 Output Total 350 Balance 1680 - Medications Medications: Current Medications Acetaminophen (Tylenol 325mg Tab) 650 mg PO Q4H PRN PRN Reason: Fever >100.4 F Folic Acid (Folic Acid) 1 mg IVP DAILY [facility] Last Admin: 11/11/16 11:38 Dose: 1 mg Potassium Chloride/Dextrose/Sod Cl (Potassium Chl 10 Meq In D5-1/2ns) 1,000 mls @ 100 mls/hr IV .Q10H [facility] Last Admin: 11/11/16 09:03 Dose: 100 mls/hr Piperacillin Sod/Tazobactam Sod (Zosyn 3.375 In Ns 100ml) 100 mls @ 200 mls/hr IVPB Q6 [facility]ESAR PRN Reason: Protocol Stop: 11/18/16 08:01 Last Admin: 11/11/16 13:00 Dose: 200 mls/hr Ketorolac Tromethamine (Toradol) 15 mg IM Q8 PRN PRN Reason: Pain, Mild (1-3) Last Admin: 11/10/16 23:46 Dose: 15 mg Methadone HCl (Methadone) 50 mg PO DAILY [facility] Stop: 11/12/16 10:01 Last Admin: 11/11/16 09:01 Dose: 50 mg Ondansetron HCl (Zofran Inj) 4 mg IVP Q4 PRN PRN Reason: Nausea/Vomiting Last Admin: 11/11/16 13:07 Dose: 4 mg Pantoprazole Sodium (Protonix Inj) 40 mg IVP BID [facility] Last Admin: 11/11/16 09:01 Dose: 40 mg Phytonadione (Vitamin K Inj) 10 mg SC DAILY [facility] Stop: 11/13/16 10:01 Last Admin: 11/11/16 14:12 Dose: 10 mg Thiamine HCl (Vitamin B1 Tab) 100 mg PO DAILY [facility] Last Admin: 11/11/16 09:01 Dose: 100 mg - Labs Labs: 11/11/16 09:50 11/11/16 09:50 PT 14.2 Seconds (9.9-11.8) H 11/10/16 20:15 INR 1.31 (0.93-1.08) H 11/10/16 20:15 APTT 35.9 Seconds (23.7-30.8) H 11/10/16 20:15 Attending/Attestation - Attestation I have personally seen and examined this patient.: Yes I have fully participated in the care of the patient.: Yes I have reviewed all pertinent clinical information, including history, physical exam and plan: Yes Notes (Text): Patient was seen and examined with associate medical director .Agreed with resident assessment and plan. 51 yrs old male with acute pancreatitis, mutile pancreatitic cyst on CT scan and MRCP, abdominal pain is better, but patient is febrile, WBC is increasing on IV zosyn as per ID.Patient is NPO , on IV hydration.GI and surgery is following,IR is consulted for possible aspiration.Patient is in ICU for close monitoring. Management plan was discussed in detail with patient Education was provided.
--- NOTE | 2016-11-11 12:56 | MRI ---
MRCP Indication: Pancreatic pseudocyst Technique: Multiplanar, multisequence MR images of the abdomen were obtained, including heavily T2 weighted MRCP images of the biliary system. Rotating maximum intensity projection images of the biliary system were generated. A total of 654 images were submitted for review. Comparison: CT abdomen and pelvis with contrast performed 11/10/16 Findings: Abdominal ascites. Multiple pseudocysts as demonstrated on CT of the abdomen and pelvis performed 11/10/16 involving the pancreatic body/tail, the wall of the descending colon and stomach as well as possibly within the small bowel mesentery. Peripancreatic fluid. Mild pancreatic ductal dilatation. The common bile duct appears within normal limits of caliber without focal filling defects. The pancreatic duct appears tortuous an mildly dilated measuring approximately 5 mm in maximum diameter. Multiple tiny probable side duct radicles. The noncontrast liver, adrenal glands, kidneys, and spleen, and gallbladder appear unremarkable. Partially imaged known aortic dissection noted. Included portions of the lung bases reveal small [id number]-right pleural effusions. No acute osseous abnormality is detected. Impression: Findings compatible with acute pancreatitis. Suspect history of chronic pancreatitis with multiple tiny T2 hyperintensities consistent with dilated side duct radicles arising from and ectatic dilated pancreatic duct. Multiple pseudocysts as demonstrated on CT of the abdomen and pelvis performed 11/10/16 involving the pancreatic body/tail, the wall of the descending colon and stomach as well as possibly within the small bowel mesentery. Abdominal ascites. Partially imaged known aortic dissection re-identified. Small [id number]-right pleural effusions.
[2016-11-11] MEDS ORDERED: Phytonadione 10 mg/ml Inj (Adult) SC SCH ×2 (13:30→13:40)
[2016-11-11] MEDS: Phytonadione 10 mg/ml Inj (Adult) SC SCH (14:12)
[2016-11-11 17:52] LABS: VENOUS BLOOD GAS BASE EXCESS 4.8 mmol/L (0.0-2.0); VENOUS BLOOD PH 7.41 (7.32-7.43)
--- NOTE | 2016-11-11 21:10 | CP.PCM.PN ---
Subjective - Date & Time of Evaluation Date of Evaluation: 11/11/16 Time of Evaluation: 08:20 - Subjective Subjective: Comfortable in bed, but still complaining of abdominal pain. Noted events overnight that the patient had episodes of hypoxia and had to be transferred to the ICU for closer observation. No fevers overnight. Had one loose bowel movement today. Objective - Vital Signs/Intake and Output Vital Signs (last 24 hours): Temp Pulse Resp BP Pulse Ox 100.1 F H 104 H 25 H 161/91 H 95 11/11/16 16:00 11/11/16 18:00 11/11/16 18:00 11/11/16 18:00 11/11/16 18:00 Intake and Output: 11/11/16 11/12/16 18:59 06:59 Intake Total 2030 Output Total 850 Balance 1180 - Medications Medications: Current Medications Acetaminophen (Tylenol 325mg Tab) 650 mg PO Q4H PRN PRN Reason: Fever >100.4 F Folic Acid (Folic Acid) 1 mg IVP DAILY [facility] Last Admin: 11/11/16 11:38 Dose: 1 mg Potassium Chloride/Dextrose/Sod Cl (Potassium Chl 10 Meq In D5-1/2ns) 1,000 mls @ 100 mls/hr IV .Q10H [facility] Last Admin: 11/11/16 18:51 Dose: 100 mls/hr Piperacillin Sod/Tazobactam Sod (Zosyn 3.375 In Ns 100ml) 100 mls @ 200 mls/hr IVPB Q6 [facility] PRN Reason: Protocol Stop: 11/18/16 08:01 Last Admin: 11/11/16 17:20 Dose: 200 mls/hr Ketorolac Tromethamine (Toradol) 15 mg IM Q8 PRN PRN Reason: Pain, Mild (1-3) Last Admin: 11/11/16 17:21 Dose: 15 mg Methadone HCl (Methadone) 50 mg PO DAILY [facility] Stop: 11/12/16 10:01 Last Admin: 11/11/16 09:01 Dose: 50 mg Ondansetron HCl (Zofran Inj) 4 mg IVP Q4 PRN PRN Reason: Nausea/Vomiting Last Admin: 11/11/16 13:07 Dose: 4 mg Pantoprazole Sodium (Protonix Inj) 40 mg IVP BID [facility] Last Admin: 11/11/16 17:22 Dose: 40 mg Phytonadione (Vitamin K Inj) 10 mg SC DAILY [facility] Stop: 11/13/16 10:01 Last Admin: 11/11/16 14:12 Dose: 10 mg Thiamine HCl (Vitamin B1 Tab) 100 mg PO DAILY [facility] Last Admin: 11/11/16 09:01 Dose: 100 mg - Labs Labs: 11/11/16 09:50 11/11/16 09:50 PT 14.2 Seconds (9.9-11.8) H 11/10/16 20:15 INR 1.31 (0.93-1.08) H 11/10/16 20:15 APTT 35.9 Seconds (23.7-30.8) H 11/10/16 20:15 - Constitutional Appears: Non-toxic, No Acute Distress - Head Exam Head Exam: NORMAL INSPECTION - ENT Exam ENT Exam: Mucous Membranes Moist - Neck Exam Neck Exam: absent: Lymphadenopathy, Meningismus - Respiratory Exam Respiratory Exam: Decreased Breath Sounds - Cardiovascular Exam Cardiovascular Exam: +S1, +S2 - GI/Abdominal Exam GI & Abdominal Exam: Soft. absent: Tenderness Assessment and Plan - Assessment and Plan (Free Text) Plan: Assessment Sepsis probably secondary to acute descending colon colitis, on top of chronic pancreatitis; patient also noted to have pseudocysts Coagulase negative staph in 1 of 4 sets, R/O contamination alcoholism history of pancreatitis history of thoracic aneurysm S/P repair in 2014 dyslipidemia Plan changed Rocephin and Flagyl to Zosyn; gave a dose of IV Vancomycin and repeat blood cx are so far negative x 1 day Follow up plan for drainage of the pseudocysts Will follow clinically
[2016-11-12] MEDS: Piperacillin/Tazobact 3.375 gm 100 ML IVPB SCH ×3 (05:02→18:10)
[2016-11-12] MEDS: Potassium Chl 10 mEq in D5-1/2 1,000 ML IV SCH (05:30)
[2016-11-12 06:05] LABS: ADD MANUAL DIFF? NO
[2016-11-12 06:23] LABS: BASO # 0.01 K/mm3 (0.0-2.0); BASO % 0.1 % (0.0-3.0); EOS # 0.1 (0.0-0.7); GRAN # 9.49 (1.4-6.5); GRAN % 76.8 % (50.0-68.0); HEMATOCRIT 25.7 % (42.0-52.0); LYMPH # 1.4 (1.2-3.4); LYMPH % 11.5 % (22.0-35.0); MEAN CELL VOLUME 73.9 fL (80.0-105.0); MEAN CORPUSCULAR HEMOGLOBIN 26.7 pg (25.0-35.0); MEAN CORPUSCULAR HGB CONC 36.2 g/dl (31.0-37.0); MEAN PLATELET VOLUME 9.4 fl (7.0-11.0); MONO # 1.3 (0.1-0.6); MONO % 10.6 % (1.0-6.0); PLATELET COUNT 300 10^3/uL (120.0-450.0); RED CELL DISTRIBUTION WIDTH 15.6 % (11.5-14.5); WHITE BLOOD COUNT 12.4 10^3/ul (4.5-11.0)
[2016-11-12 06:28] LABS: ALB/GLOB RATIO 0.7 (1.1-1.8); ALKALINE PHOSPHATASE 57 U/L (38-133); ALT/SGPT 32 U/L (7-56); AST/SGOT 28 U/L (15-59); BILIRUBIN,TOTAL 0.4 mg/dL (0.2-1.3); BLOOD UREA NITROGEN 5 mg/dL (7-21); CALCIUM 7.6 mg/dL (8.4-10.5); CARBON DIOXIDE 32 mmol/L (21-33); CHLORIDE 99 mmol/L (98-107); GFR AFRICAN-AMERICAN > 60; GLUCOSE,RANDOM 92 mg/dL (70-110); MAGNESIUM 1.6 mg/dL (1.7-2.2); PHOSPHOROUS 2.7 mg/dL (2.5-4.5); POTASSIUM 3.4 mmol/L (3.6-5.0); SODIUM 133 mmol/L (132-148); TOTAL PROTEIN 4.6 g/dL (5.8-8.3)
[2016-11-12 06:30] LABS: INR 1.26 (0.93-1.08); PARTIAL THROMBOPLASTIN TIME 35.8 Seconds (23.7-30.8)
[2016-11-12] MEDS ORDERED: Magnesium Sulfate 2 GM in Sodium Chloride 0.9% 100 ML IVPB ONE (07:21)
[2016-11-12] MEDS ORDERED: Potassium Chloride 20 mEq 100 ML IVPB ONE (07:21)
[2016-11-12] MEDS: Phytonadione 10 mg/ml Inj (Adult) SC SCH (09:09)
--- NOTE | 2016-11-12 09:10 | PN ---
DATE: 11/12/2016 Dictated on behalf of Dr. Javier Gonzáles, who will be out for vacation for a few days. The patient is a 51-year-old male with history of a thoracic aneurysm repair with chronic aortic dissection, history of chronic substance abuse, admitted with complaints of abdominal pain, found to have pancreatitis complicated by pseudocyst as well as probably a distal colitis. I reviewed this case with Dr. Gresham and Dr. Javier Gonzáles yesterday before he left. Apparently, the plan is liquid diet, and an MRCP was performed yesterday. From what I understand, interventional radiology is planning on a percutaneous-assist drainage Monday. The patient is currently still in ICU pending transfer to telemetry. Apparently , he is doing a lot better than on day of admission. Still has n.p.o. status, and experiencing small-volume liquid stool. The abdominal distention has substantially decreased, as well as the amount of pain in the left upper quadrant. Nausea is less of an issue. He is passing gas rectally. I reviewed the progress note of Dr. Bishop, who indicated the overall assessment of sepsis, probably secondary to acute descending colon colitis, plus pancreatitis. He is currently being treated for coagulase negative staph. I reviewed this patient's vital signs. HENT EXAMINATION: Significant for dry mouth. LUNGS: Decreased breath sounds basilar. HEART: Irregular rhythm. The patient has a grade II/ systolic ejection murmur heard best at left parasternal border. ABDOMEN: Mildly distended. He has hypoactive bowel sounds. No tenderness elicited in the epigastric or left upper quadrant, or periumbilical area. Does have some very, very mild discomfort in the left lower quadrant. I reviewed the progress note of the house staff, including the plan of action for the various problems this patient has, including the pancreatic pseudocyst, hypertension, thoracic aneurysm, and the colitis. Reviewed the MRCP from yesterday which indicates ascites as well as multiple pseudocysts. The patient does have peripancreatic fluid with pancreatic duct dilatation. Common duct is within normal limits. Pancreatic duct is mildly dilated, also has multiple side branches. The overall question is whether any of these cysts evolved from some of the side branches. Again reviewed the MRCP images, as well as the abdominal CT report. On the basis 0f the CT interpretation, it does not appear this is necrotic pancreatitis case. Note that the evaluation of the bowel is significant for a thick-walled descending colon, therefore, suggesting a possible distal colitis. OVERALL ASSESSMENT: This is a 51-year-old black male previously seen by Dr. Javier Gonzáles. This progress note is dictated on behalf of Dr. Gonzáles. The patient, again, has a history of multi-substance abuse, admitted with multiple complaints, including abdominal pain due to pancreatitis exacerbation associated with pseudocysts, plus a possible staph sepsis, including a distal colitis involving the descending colon. The patient is currently consulted by multiple individuals. I reviewed the orders. Currently, the patient is on ondansetron as well as IV antibiotics by Dr. Bishop. He is on thiamine, folate , methadone, plus a PPI. I think this is adequate at the current time point. The patient is scheduled for a drainage procedure by Dr. Gwyn Street on Monday. As indicated in a discussion with Dr. Gresham, this does not seem to be a case of necrotic pancreatitis where EUS assisted transgastric drainage is required immediately.. Because of the complexity of this case with multiple pseudocysts, I think at some time point the patient needs [facility] the [facility] facility to clarify the origination of the pseudocysts; whether it is main duct or side branches. Note that this has prognostic implications, especially in the setting of a dilated pancreatic duct. Note that a large pseudocyst in conjunction with a large pancreatic ducts, plus side branch origination can be associated with IPMNs. Again, this has significant prognostic implications. Again, I think it would be in the best interest this patient possibly to transfer at some time point to the university facility where further evaluation by extensive EUS evaluation and a cyst drainage procedures or possibly transgastric pancreatic necrosectomy could be better accomplished. At the current time point, the patient appears comfortable on the current medications, and I would continue according to plan suggested by Dr. Gonzáles and the respective consultants. I would be very careful about advance this patient's diet too rapidly. Tr Posada DO, PhD cc: [id number] TT: 11/12/2016 09:10:14 Confirmation # [id number] Dictation # [id number] loni TRUONG
[2016-11-12] MEDS: Potassium Chloride 10 MEQ in Dextrose 5%/0.9% NS 1,000 ML IV SCH ×2 (09:12→19:08)
--- NOTE | 2016-11-12 13:32 | CP.PCM.PN ---
Subjective - Date & Time of Evaluation Date of Evaluation: 11/12/16 Time of Evaluation: 12:50 - Subjective Subjective: Still complaining of intermittent pain in the abdomen. No fevers overnight, no diarrhea currently. Objective - Vital Signs/Intake and Output Vital Signs (last 24 hours): Temp Pulse Resp BP Pulse Ox 97.8 F 87 20 145/94 H 95 11/12/16 12:00 11/12/16 12:00 11/12/16 12:00 11/12/16 12:00 11/12/16 09:04 Intake and Output: 11/12/16 11/12/16 06:59 18:59 Intake Total 1200 Output Total 550 Balance 650 - Medications Medications: Current Medications Acetaminophen (Tylenol 325mg Tab) 650 mg PO Q4H PRN PRN Reason: Fever >100.4 F Folic Acid (Folic Acid) 1 mg IVP DAILY [facility] Last Admin: 11/12/16 09:32 Dose: 1 mg Piperacillin Sod/Tazobactam Sod (Zosyn 3.375 In Ns 100ml) 100 mls @ 200 mls/hr IVPB Q6 [facility] PRN Reason: Protocol Stop: 11/18/16 08:01 Last Admin: 11/12/16 11:24 Dose: 200 mls/hr Potassium Chloride 10 meq/ (Dextrose/Sodium Chloride) 1,005 mls @ 100 mls/hr IV .Q10H3M [facility] Last Admin: 11/12/16 09:12 Dose: 100 mls/hr Multivitamins/Vitamin C 10 ml/Amino Acids/Electrolytes/Dextrose 2,010 mls @ 83 mls/hr IV .Q24H [facility] Stop: 11/15/16 17:59 Fat Emulsion Intravenous (Intralipid 20%) 250 mls @ 21 mls/hr IV DAILY@1800 [facility] Stop: 11/15/16 05:55 Ketorolac Tromethamine (Toradol) 15 mg IM Q8 PRN PRN Reason: Pain, Mild (1-3) Last Admin: 11/12/16 00:38 Dose: 15 mg Ondansetron HCl (Zofran Inj) 4 mg IVP Q4 PRN PRN Reason: Nausea/Vomiting Last Admin: 11/11/16 13:07 Dose: 4 mg Pantoprazole Sodium (Protonix Inj) 40 mg IVP BID [facility] Last Admin: 11/12/16 09:08 Dose: 40 mg Phytonadione (Vitamin K Inj) 10 mg SC DAILY [facility] Stop: 11/13/16 10:01 Last Admin: 11/12/16 09:09 Dose: 10 mg Thiamine HCl (Vitamin B1 Tab) 100 mg PO DAILY [facility] Last Admin: 11/12/16 09:08 Dose: 100 mg - Labs Labs: 11/12/16 05:30 11/12/16 05:30 PT 13.6 Seconds (9.9-11.8) H 11/12/16 05:30 INR 1.26 (0.93-1.08) H 11/12/16 05:30 APTT 35.8 Seconds (23.7-30.8) H 11/12/16 05:30 - Constitutional Appears: Non-toxic, No Acute Distress - Head Exam Head Exam: NORMAL INSPECTION - ENT Exam ENT Exam: Mucous Membranes Moist - Neck Exam Neck Exam: absent: Lymphadenopathy, Meningismus - Respiratory Exam Respiratory Exam: Decreased Breath Sounds - Cardiovascular Exam Cardiovascular Exam: +S1, +S2 - GI/Abdominal Exam GI & Abdominal Exam: Soft. absent: Tenderness Assessment and Plan - Assessment and Plan (Free Text) Plan: Assessment Sepsis probably secondary to acute descending colon colitis, on top of chronic pancreatitis; patient also noted to have pseudocysts which may be infected Coagulase negative staph in 1 of 4 sets, consider contamination alcoholism history of pancreatitis history of thoracic aneurysm S/P repair in 2014 dyslipidemia Plan continue Zosyn day 2; repeat blood cx are negative Follow up plan for drainage of the pseudocysts to rule out infected pseudocysts Will continue to follow clinically
--- NOTE | 2016-11-12 13:50 | CP.PCM.PN ---
<UvaldoSanket - Last Filed: 11/12/16 13:47> Subjective - Date & Time of Evaluation Date of Evaluation: 11/12/16 Time of Evaluation: 07:00 - Subjective Subjective: Medicine Progress note. Dr. Orlando Pt seen and examined at bedside. Denies any new complaints. Still does not have an appetite. No more episodes of N/V/D. Abd pain improving. No CP/SOB. Objective - Vital Signs/Intake and Output Vital Signs (last 24 hours): Temp Pulse Resp BP Pulse Ox 97.8 F 87 20 145/94 H 95 11/12/16 12:00 11/12/16 12:00 11/12/16 12:00 11/12/16 12:00 11/12/16 09:04 Intake and Output: 11/12/16 11/12/16 06:59 18:59 Intake Total 1200 Output Total 550 Balance 650 - Medications Medications: Current Medications Acetaminophen (Tylenol 325mg Tab) 650 mg PO Q4H PRN PRN Reason: Fever >100.4 F Folic Acid (Folic Acid) 1 mg IVP DAILY [facility] Last Admin: 11/12/16 09:32 Dose: 1 mg Piperacillin Sod/Tazobactam Sod (Zosyn 3.375 In Ns 100ml) 100 mls @ 200 mls/hr IVPB Q6 [facility] PRN Reason: Protocol Stop: 11/18/16 08:01 Last Admin: 11/12/16 11:24 Dose: 200 mls/hr Potassium Chloride 10 meq/ (Dextrose/Sodium Chloride) 1,005 mls @ 100 mls/hr IV .Q10H3M [facility] Last Admin: 11/12/16 09:12 Dose: 100 mls/hr Multivitamins/Vitamin C 10 ml/Amino Acids/Electrolytes/Dextrose 2,010 mls @ 83 mls/hr IV .Q24H [facility] Stop: 11/15/16 17:59 Fat Emulsion Intravenous (Intralipid 20%) 250 mls @ 21 mls/hr IV DAILY@1800 [facility] Stop: 11/15/16 05:55 Ketorolac Tromethamine (Toradol) 15 mg IM Q8 PRN PRN Reason: Pain, Mild (1-3) Last Admin: 11/12/16 00:38 Dose: 15 mg Ondansetron HCl (Zofran Inj) 4 mg IVP Q4 PRN PRN Reason: Nausea/Vomiting Last Admin: 11/11/16 13:07 Dose: 4 mg Pantoprazole Sodium (Protonix Inj) 40 mg IVP BID [facility] Last Admin: 11/12/16 09:08 Dose: 40 mg Phytonadione (Vitamin K Inj) 10 mg SC DAILY [facility] Stop: 11/13/16 10:01 Last Admin: 11/12/16 09:09 Dose: 10 mg Thiamine HCl (Vitamin B1 Tab) 100 mg PO DAILY [facility] Last Admin: 11/12/16 09:08 Dose: 100 mg - Labs Labs: 11/12/16 05:30 11/12/16 05:30 PT 13.6 Seconds (9.9-11.8) H 11/12/16 05:30 INR 1.26 (0.93-1.08) H 11/12/16 05:30 APTT 35.8 Seconds (23.7-30.8) H 11/12/16 05:30 - Constitutional Appears: Well, No Acute Distress - Head Exam Head Exam: ATRAUMATIC, NORMAL INSPECTION, NORMOCEPHALIC - Eye Exam Eye Exam: EOMI, Normal appearance, PERRL. absent: Scleral icterus Pupil Exam: PERRL - ENT Exam ENT Exam: Mucous Membranes Moist - Neck Exam Neck Exam: Full ROM - Respiratory Exam Respiratory Exam: Clear to Ausculation Bilateral, NORMAL BREATHING PATTERN. absent: Wheezes - Cardiovascular Exam Cardiovascular Exam: RRR. absent: JVD - GI/Abdominal Exam GI & Abdominal Exam: Soft. absent: Tenderness - Extremities Exam Extremities Exam: Normal Inspection - Neurological Exam Neurological Exam: Alert, Awake, Oriented x3 - Psychiatric Exam Psychiatric exam: Normal Affect, Normal Mood - Skin Skin Exam: Dry, Intact, Normal Color, Warm Assessment and Plan - Assessment and Plan (Free Text) Assessment: 51yo M with PMHx of Pancreatitis, ETOH abuse, Thoracic Aneurysm here with Abd pain. Found to have multiple pseudocysts: Pancreas, SB, Colon 1. Abd pain with Multiple large Psudocysts: Pancreas, SB, Colon Repeat CT - Acute pancreatitis with large pancreatitic pseudocyst, pancreatic ductal dilatation; Pseudocysts in the wall of descending colon and stomach IR drainage consult, awaiting recs GI following, appreciate recs -May need transfer to [facility] facility to clarify the origination of psuedocysts -Very conservative approach to advancing diet recommended Surgery following, appreciate recs - PPN started today NPO morphine prn Toradol 2. Hx of HTN Stable at this time Continue to monitor 3. Hx of thoracic/abdominal aneurysm Surgery states no surgical intervention at this time F/u with CardioThoracic surgeon who did the surgery. Cardiology following Echo: EF 61% 4. focal colitis on CT/elevated white count Increase in WBC: 17k today ABX per ID Zosyn blood culture shows coagulase negative staph. Repeat cxs negative stool c diff studies negative 5. Hx of HLD -Continue Lipitor 6. EtOH/Substance abuse Urine tox : Opiate, Methadone + Thiamine Counseled on abstinence 7. PPx SCDs protonix Discussed case with Dr. Johanny Bailon PGY1 <Luis Manuel Orlando MD - Last Filed: 11/13/16 13:05> Objective - Vital Signs/Intake and Output Vital Signs (last 24 hours): Temp Pulse Resp BP Pulse Ox 98.6 F 126 H 20 148/70 96 11/13/16 06:00 11/13/16 10:00 11/13/16 06:00 11/13/16 06:00 11/13/16 06:00 Intake and Output: 11/13/16 11/13/16 06:59 18:59 Intake Total 1598 Output Total 1200 Balance 398 - Medications Medications: Current Medications Acetaminophen (Tylenol 325mg Tab) 650 mg PO Q4H PRN PRN Reason: Fever >100.4 F Folic Acid (Folic Acid) 1 mg IVP DAILY [facility] Last Admin: 11/13/16 10:39 Dose: 1 mg Piperacillin Sod/Tazobactam Sod (Zosyn 3.375 In Ns 100ml) 100 mls @ 200 mls/hr IVPB Q6 [facility] PRN Reason: Protocol Stop: 11/18/16 08:01 Last Admin: 11/13/16 05:07 Dose: 200 mls/hr Multivitamins/Vitamin C 10 ml/Amino Acids/Electrolytes/Dextrose 2,010 mls @ 83 mls/hr IV .Q24H [facility] Stop: 11/15/16 17:59 Last Admin: 11/12/16 19:03 Dose: 83 mls/hr Fat Emulsion Intravenous (Intralipid 20%) 250 mls @ 21 mls/hr IV DAILY@1800 [facility] Stop: 11/15/16 05:55 Last Admin: 11/12/16 19:03 Dose: 21 mls/hr Sodium Chloride (Sodium Chloride 0.9%) 1,000 mls @ 75 mls/hr IV .[id number] [facility] Ketorolac Tromethamine (Toradol) 15 mg IM Q8 PRN PRN Reason: Pain, Mild (1-3) Last Admin: 11/12/16 18:43 Dose: 15 mg Ondansetron HCl (Zofran Inj) 4 mg IVP Q4 PRN PRN Reason: Nausea/Vomiting Last Admin: 11/13/16 05:07 Dose: 4 mg Pantoprazole Sodium (Protonix Inj) 40 mg IVP BID [facility] Last Admin: 11/13/16 09:50 Dose: 40 mg Thiamine HCl (Vitamin B1 Tab) 100 mg PO DAILY [facility] Last Admin: 11/12/16 09:08 Dose: 100 mg - Labs Labs: 11/13/16 08:50 11/13/16 08:50 PT 13.6 Seconds (9.9-11.8) H 11/12/16 05:30 INR 1.26 (0.93-1.08) H 11/12/16 05:30 APTT 35.8 Seconds (23.7-30.8) H 11/12/16 05:30 Attending/Attestation - Attestation I have personally seen and examined this patient.: Yes I have fully participated in the care of the patient.: Yes I have reviewed all pertinent clinical information, including history, physical exam and plan: Yes Notes (Text): 11/13/16 12:40 Patient was seen and examined with general medical practitioner .Agreed with resident assessment and plan. 50 year old male with PMH of alcoholism, history of pancreatitis, history of thoracic aneurysm S/P repair in 2015, dyslipidemia was admitted with abdominal pain, he is found to have multiple Pancreatic cyst on 2nd CT abdomen and Pelvis as well as on MRCP, he is on PPN, plan for drainage of cyst by Dr.Peter Street tomorrow, As per GI ,patient will need EUS also, and depending on EUS ,may need open surgery , if surgery is required need to be transferred to [facility]. One of blood cultures grew coagulase stap likely contaminated on IV zosyn as per ID.Repeat cultures are negative. Management plan was discussed in detail with patient, need reinforcement. Education was provided. 11/13/16 13:04
--- NOTE | 2016-11-12 17:08 | CP.PCM.PN ---
<Arsenio Ye - Last Filed: 11/12/16 17:09> Subjective - Date & Time of Evaluation Date of Evaluation: 11/12/16 Time of Evaluation: 17:06 - Subjective Subjective: SURGERY PROGRESS NOTE FOR DR. RAMIREZ 51M seen and examined at bedside. Patient denies pain, nausea, vomiting, fevers , chills. Objective - Vital Signs/Intake and Output Vital Signs (last 24 hours): Temp Pulse Resp BP Pulse Ox 97.8 F 87 20 145/94 H 95 11/12/16 12:00 11/12/16 12:00 11/12/16 12:00 11/12/16 12:00 11/12/16 09:04 Intake and Output: 11/12/16 11/12/16 06:59 18:59 Intake Total 1200 Output Total 550 Balance 650 - Medications Medications: Current Medications Acetaminophen (Tylenol 325mg Tab) 650 mg PO Q4H PRN PRN Reason: Fever >100.4 F Folic Acid (Folic Acid) 1 mg IVP DAILY [facility] Last Admin: 11/12/16 09:32 Dose: 1 mg Piperacillin Sod/Tazobactam Sod (Zosyn 3.375 In Ns 100ml) 100 mls @ 200 mls/hr IVPB Q6 [facility] PRN Reason: Protocol Stop: 11/18/16 08:01 Last Admin: 11/12/16 11:24 Dose: 200 mls/hr Potassium Chloride 10 meq/ (Dextrose/Sodium Chloride) 1,005 mls @ 100 mls/hr IV .Q10H3M [facility] Last Admin: 11/12/16 09:12 Dose: 100 mls/hr Multivitamins/Vitamin C 10 ml/Amino Acids/Electrolytes/Dextrose 2,010 mls @ 83 mls/hr IV .Q24H [facility] Stop: 11/15/16 17:59 Fat Emulsion Intravenous (Intralipid 20%) 250 mls @ 21 mls/hr IV DAILY@1800 [facility] Stop: 11/15/16 05:55 Ketorolac Tromethamine (Toradol) 15 mg IM Q8 PRN PRN Reason: Pain, Mild (1-3) Last Admin: 11/12/16 00:38 Dose: 15 mg Ondansetron HCl (Zofran Inj) 4 mg IVP Q4 PRN PRN Reason: Nausea/Vomiting Last Admin: 11/12/16 13:48 Dose: 4 mg Pantoprazole Sodium (Protonix Inj) 40 mg IVP BID [facility] Last Admin: 11/12/16 09:08 Dose: 40 mg Phytonadione (Vitamin K Inj) 10 mg SC DAILY [facility] Stop: 11/13/16 10:01 Last Admin: 11/12/16 09:09 Dose: 10 mg Thiamine HCl (Vitamin B1 Tab) 100 mg PO DAILY [facility] Last Admin: 11/12/16 09:08 Dose: 100 mg - Labs Labs: 11/12/16 05:30 11/12/16 05:30 PT 13.6 Seconds (9.9-11.8) H 11/12/16 05:30 INR 1.26 (0.93-1.08) H 11/12/16 05:30 APTT 35.8 Seconds (23.7-30.8) H 11/12/16 05:30 - Constitutional Appears: Non-toxic, No Acute Distress - Head Exam Head Exam: ATRAUMATIC - Respiratory Exam Respiratory Exam: Clear to Ausculation Bilateral, NORMAL BREATHING PATTERN - Cardiovascular Exam Cardiovascular Exam: REGULAR RHYTHM, +S1, +S2 - GI/Abdominal Exam GI & Abdominal Exam: Firm. absent: Distended, Guarding, Rigid, Tenderness, Rebound - Neurological Exam Neurological Exam: Alert, Awake - Skin Skin Exam: Dry, Intact, Normal Color, Warm Assessment and Plan - Assessment and Plan (Free Text) Assessment: 51 yo M w/PMHx of EOTH abuse presents for Pancreatitis, chronic residual aortic dissection, thoracic aneurism h/o thoracic dissection repair, colitis. Repeat ab CT showed new multiple pseudocysts and dilation of pancreatic duct, acute pancreatitis. MRCP: multiple tiny T2 hyperdensities consistent with dilated side duct radicles arising from ...dilated pancreatic duct. Multiple pseudocyts.... abdominal ascites. Plan: - Hoang 150cc overnight, hoang inserted around 12 am - NPO, patient on PPN - continue abx - serial abd exams - We will continue to follow Further recs discuss with Dr. Marina Ye, PGY1 <Finn Ramirez - Last Filed: 11/13/16 23:53> Subjective - Date & Time of Evaluation Date of Evaluation: 11/12/16 Time of Evaluation: 19:30 Objective - Vital Signs/Intake and Output Vital Signs (last 24 hours): Temp Pulse Resp BP Pulse Ox 99 F 83 20 156/98 H 96 11/13/16 18:00 11/13/16 22:00 11/13/16 18:00 11/13/16 18:00 11/13/16 06:00 Intake and Output: 11/13/16 11/14/16 18:59 06:59 Intake Total 4490 0 Output Total 1100 200 Balance 3390 -200 - Medications Medications: Current Medications Acetaminophen (Tylenol 325mg Tab) 650 mg PO Q4H PRN PRN Reason: Fever >100.4 F Last Admin: 11/13/16 13:34 Dose: 650 mg Folic Acid (Folic Acid) 1 mg IVP DAILY [facility] Last Admin: 11/13/16 10:39 Dose: 1 mg Piperacillin Sod/Tazobactam Sod (Zosyn 3.375 In Ns 100ml) 100 mls @ 200 mls/hr IVPB Q6 [facility] PRN Reason: Protocol Stop: 11/18/16 08:01 Last Admin: 11/13/16 23:27 Dose: 200 mls/hr Multivitamins/Vitamin C 10 ml/Amino Acids/Electrolytes/Dextrose 2,010 mls @ 83 mls/hr IV .Q24H [facility] Stop: 11/15/16 17:59 Last Admin: 11/13/16 18:22 Dose: 83 mls/hr Fat Emulsion Intravenous (Intralipid 20%) 250 mls @ 21 mls/hr IV DAILY@1800 [facility] Stop: 11/15/16 05:55 Last Admin: 11/13/16 18:21 Dose: 21 mls/hr Sodium Chloride (Sodium Chloride 0.9%) 1,000 mls @ 75 mls/hr IV .[id number] [facility] Last Admin: 11/13/16 13:33 Dose: 75 mls/hr Ketorolac Tromethamine (Toradol) 15 mg IM Q8 PRN PRN Reason: Pain, Mild (1-3) Last Admin: 11/13/16 20:26 Dose: 15 mg Ondansetron HCl (Zofran Inj) 4 mg IVP Q4 PRN PRN Reason: Nausea/Vomiting Last Admin: 11/13/16 18:46 Dose: 4 mg Pantoprazole Sodium (Protonix Inj) 40 mg IVP BID [facility] Last Admin: 11/13/16 20:18 Dose: 40 mg Thiamine HCl (Vitamin B1 Tab) 100 mg PO DAILY [facility] Last Admin: 11/13/16 13:32 Dose: 100 mg - Labs Labs: 11/13/16 08:50 11/13/16 08:50 PT 13.6 Seconds (9.9-11.8) H 11/12/16 05:30 INR 1.26 (0.93-1.08) H 11/12/16 05:30 APTT 35.8 Seconds (23.7-30.8) H 11/12/16 05:30 Assessment and Plan - Assessment and Plan (Free Text) Assessment: Patient was seen and examined by me. I agree with assessment and plan as per resident's note.
[2016-11-12] MEDS: Fat Emulsion 20% IV 250 ML IV SCH (19:03)
[2016-11-12] MEDS ORDERED: Potassium Chloride 10 MEQ in Dextrose 5%/0.9% NS 1,000 ML IV SCH (20:52)
[2016-11-13] MEDS: Piperacillin/Tazobact 3.375 gm 100 ML IVPB SCH ×5 (00:01→23:27)
--- NOTE | 2016-11-13 08:06 | PN ---
DATE: 11/13/2016 Dictating on behalf of Dr. Javier Gonzáles, who is currently away. I examined the patient this morning. He is a 51-year-old black male, known history of multi-substance abuse, admitted with complaints of abdominal pain. The patient is currently found to be septic with pancreatitis and numerous pseudocysts found on imaging studies. The patient indicated this morning at bedside that pain level roughly 4-5/10. He is passing urine, formed saliva. Some degree of shortness of breath noted by the patient. The abdomen is still moderately distended. Nausea issues are less of a problem. He still has not walked around or sat in a chair as of yet. N.p.o. status is maintained. PHYSICAL EXAMINATION: VITAL SIGNS: I reviewed this patient's vital signs. HEENT: Significant for a dry mouth. LUNGS: Significant for decreased breath sounds right base, crackles heard left base to about 1/3 of the apex. HEART: Irregular rhythm. ABDOMEN: Moderately distended. He is tender in periumbilical area, left upper quadrant. There is a fullness in the left periumbilical and left lower quadrant as well. LABORATORY DATA: Pending for this morning. OVERALL ASSESSMENT: This is a 51-year-old black male, current diagnosis pancreatitis with multiple pseudocyst formation. He is pending a CT-guided pseudocyst drainage tomorrow by Dr. Gwyn Street. Note that the pseudocyst aspirate should be sent for the appropriate studies including amylase. One might also consider tapping his of ascites and check that for amylase as well. Cultures of the above fluid will be in order as well. Based on the appearance of the CT images which are reviewed this morning, it is difficult to say if there is some degree of necrotic pancreatitis involved. Due to the complexity of this case, as indicated previously, this patient needs extensive endoscopic ultrasound evaluation to delineate the source of pseudocyst , whether side branch or a main branch. Also, the small pseudocysts must be drained and contents evaluated and to rule out the possibility of intraductal papillary mucinous neoplasms. This could be better accomplished if transferred to a [facility] facility. At least at the current time point, drainage of the larger pseudocysts will provide some degree of symptomatic improvement. If there is some degree of pancreatic necrosis which is giving rise to the septic picture in this particular case, this could be better accomplished by treatment and evaluation at a University facility, possibly including a transgastric approach for pancreatic necrosectomy if necrosis is found on further imaging studies. At least for the current time point, maintain the patient n.p.o. and proceed with the plans as made by Dr. Javier Gonzáles. Overall, he appears to be comfortable on the current medications. I reviewed the notes of the respective consultants. Tr Posada DO, PhD cc: [id number] TT: 11/13/2016 08:06:12 Confirmation # [id number] Dictation # [id number] en MTDD
[2016-11-13 08:56] LABS: ADD MANUAL DIFF? NO
[2016-11-13 09:07] LABS: BASO # 0.04 K/mm3 (0.0-2.0); BASO % 0.3 % (0.0-3.0); EOS # 0.2 (0.0-0.7); EOS % 1.3 % (1.5-5.0); GRAN # 12.06 (1.4-6.5); GRAN % 80.6 % (50.0-68.0); HEMATOCRIT 27.3 % (42.0-52.0); LYMPH # 1.4 (1.2-3.4); LYMPH % 9.5 % (22.0-35.0); MEAN CELL VOLUME 74.6 fL (80.0-105.0); MEAN CORPUSCULAR HEMOGLOBIN 27.3 pg (25.0-35.0); MEAN CORPUSCULAR HGB CONC 36.6 g/dl (31.0-37.0); MEAN PLATELET VOLUME 9.8 fl (7.0-11.0); MONO # 1.2 (0.1-0.6); MONO % 8.3 % (1.0-6.0); PLATELET COUNT 349 10^3/uL (120.0-450.0); RED CELL DISTRIBUTION WIDTH 15.5 % (11.5-14.5)
[2016-11-13 09:10] LABS: ALB/GLOB RATIO 0.7 (1.1-1.8); ALKALINE PHOSPHATASE 260 U/L (38-133); ALT/SGPT 32 U/L (7-56); AMYLASE 1127 U/L (35-125); AST/SGOT 44 U/L (15-59); BILIRUBIN,TOTAL 0.5 mg/dL (0.2-1.3); BLOOD UREA NITROGEN 10 mg/dL (7-21); CARBON DIOXIDE 31 mmol/L (21-33); CHLORIDE 100 mmol/L (98-107); GFR AFRICAN-AMERICAN > 60; GLUCOSE,RANDOM 112 mg/dL (70-110); LIPASE 646 U/L (23-300); MAGNESIUM 1.9 mg/dL (1.7-2.2); PHOSPHOROUS 3.9 mg/dL (2.5-4.5); POTASSIUM 4.1 mmol/L (3.6-5.0); SODIUM 135 mmol/L (132-148)
[2016-11-13] MEDS: Phytonadione 10 mg/ml Inj (Adult) SC SCH (09:51)
--- NOTE | 2016-11-13 10:02 | CP.PCM.PN ---
<Marleni Almanzar - Last Filed: 11/13/16 13:36> Subjective - Date & Time of Evaluation Date of Evaluation: 11/13/16 Time of Evaluation: 08:00 - Subjective Subjective: General Surgery progress note for Dr. Gray Pt s/e at bedside this AM. NAEO. Patient states that he is in a lot of abdominal pain in the LLQ and is upset that he has not received his methadone this AM. Reports feeling febrile this AM but denies chills. Denies nausea, vomiting, chest pain, SOB, is passing gas, last BM yesterday Objective - Vital Signs/Intake and Output Vital Signs (last 24 hours): Temp Pulse Resp BP Pulse Ox 98.6 F 88 20 148/70 96 11/13/16 06:00 11/13/16 06:00 11/13/16 06:00 11/13/16 06:00 11/13/16 06:00 Intake and Output: 11/13/16 11/13/16 06:59 18:59 Intake Total 1598 Output Total 1200 Balance 398 - Medications Medications: Current Medications Acetaminophen (Tylenol 325mg Tab) 650 mg PO Q4H PRN PRN Reason: Fever >100.4 F Folic Acid (Folic Acid) 1 mg IVP DAILY [facility] Last Admin: 11/12/16 09:32 Dose: 1 mg Piperacillin Sod/Tazobactam Sod (Zosyn 3.375 In Ns 100ml) 100 mls @ 200 mls/hr IVPB Q6 [facility] PRN Reason: Protocol Stop: 11/18/16 08:01 Last Admin: 11/13/16 05:07 Dose: 200 mls/hr Multivitamins/Vitamin C 10 ml/Amino Acids/Electrolytes/Dextrose 2,010 mls @ 83 mls/hr IV .Q24H [facility] Stop: 11/15/16 17:59 Last Admin: 11/12/16 19:03 Dose: 83 mls/hr Fat Emulsion Intravenous (Intralipid 20%) 250 mls @ 21 mls/hr IV DAILY@1800 [facility] Stop: 11/15/16 05:55 Last Admin: 11/12/16 19:03 Dose: 21 mls/hr Potassium Chloride 10 meq/ (Dextrose/Sodium Chloride) 1,005 mls @ 50 mls/hr IV .Q20H6M [facility] Last Admin: 11/13/16 00:02 Dose: 50 mls/hr Ketorolac Tromethamine (Toradol) 15 mg IM Q8 PRN PRN Reason: Pain, Mild (1-3) Last Admin: 11/12/16 18:43 Dose: 15 mg Ondansetron HCl (Zofran Inj) 4 mg IVP Q4 PRN PRN Reason: Nausea/Vomiting Last Admin: 11/13/16 05:07 Dose: 4 mg Pantoprazole Sodium (Protonix Inj) 40 mg IVP BID [facility] Last Admin: 11/13/16 09:50 Dose: 40 mg Thiamine HCl (Vitamin B1 Tab) 100 mg PO DAILY [facility] Last Admin: 11/12/16 09:08 Dose: 100 mg - Labs Labs: 11/13/16 08:50 11/13/16 08:50 PT 13.6 Seconds (9.9-11.8) H 11/12/16 05:30 INR 1.26 (0.93-1.08) H 11/12/16 05:30 APTT 35.8 Seconds (23.7-30.8) H 11/12/16 05:30 - Constitutional Appears: Non-toxic, In Acute Distress - Head Exam Head Exam: ATRAUMATIC, NORMOCEPHALIC - Eye Exam Eye Exam: Normal appearance. absent: Conjunctival injection, Scleral icterus - ENT Exam ENT Exam: Mucous Membranes Moist, Normal Oropharynx - Respiratory Exam Respiratory Exam: NORMAL BREATHING PATTERN. absent: Accessory Muscle Use, Respiratory Distress - GI/Abdominal Exam GI & Abdominal Exam: Distended, Firm (LUQ/epigastrium/LLQ), Guarding (Voluntary guarding in the LUQ, LLQ), Tenderness (LUQ>LLQ). absent: Rigid, Rebound - Extremities Exam Extremities Exam: absent: Calf Tenderness, Pedal Edema, Tenderness - Neurological Exam Neurological Exam: Alert, Awake, Oriented x3 - Psychiatric Exam Psychiatric exam: Agitated, Normal Affect - Skin Skin Exam: Dry, Intact, Normal Color, Warm Assessment and Plan - Assessment and Plan (Free Text) Assessment: 51 yo M w/PMHx of EOTH abuse presents for Pancreatitis with developed pseudocysts, colitis, chronic residual aortic dissection, thoracic aneurysm h/o thoracic dissection repair. WBC increased to 15.0 from 12.4 Amylase and lipase both trending up Alk phosphatase increased to 260 from 57 yesterday Plan: - trend labs - NPO, patient on PPN - can give methadone PO - continue abx per ID - f/u GI recs - NS @100cc - serial abd exams - IR consulted and plans to do IR drainage for psuedocysts tomorrow - We will continue to follow Patient discussed with Dr. Marina Almanzar, PGY1 <Finn Gray - Last Filed: 11/13/16 23:55> Subjective - Date & Time of Evaluation Date of Evaluation: 11/13/16 Time of Evaluation: 11:10 Objective - Vital Signs/Intake and Output Vital Signs (last 24 hours): Temp Pulse Resp BP Pulse Ox 99 F 83 20 156/98 H 96 11/13/16 18:00 11/13/16 22:00 11/13/16 18:00 11/13/16 18:00 11/13/16 06:00 Intake and Output: 11/13/16 11/14/16 18:59 06:59 Intake Total 4490 0 Output Total 1100 200 Balance 3390 -200 - Medications Medications: Current Medications Acetaminophen (Tylenol 325mg Tab) 650 mg PO Q4H PRN PRN Reason: Fever >100.4 F Last Admin: 11/13/16 13:34 Dose: 650 mg Folic Acid (Folic Acid) 1 mg IVP DAILY [facility] Last Admin: 11/13/16 10:39 Dose: 1 mg Piperacillin Sod/Tazobactam Sod (Zosyn 3.375 In Ns 100ml) 100 mls @ 200 mls/hr IVPB Q6 [facility] PRN Reason: Protocol Stop: 11/18/16 08:01 Last Admin: 11/13/16 23:27 Dose: 200 mls/hr Multivitamins/Vitamin C 10 ml/Amino Acids/Electrolytes/Dextrose 2,010 mls @ 83 mls/hr IV .Q24H [facility] Stop: 11/15/16 17:59 Last Admin: 11/13/16 18:22 Dose: 83 mls/hr Fat Emulsion Intravenous (Intralipid 20%) 250 mls @ 21 mls/hr IV DAILY@1800 [facility] Stop: 11/15/16 05:55 Last Admin: 11/13/16 18:21 Dose: 21 mls/hr Sodium Chloride (Sodium Chloride 0.9%) 1,000 mls @ 75 mls/hr IV .[id number] [facility] Last Admin: 11/13/16 13:33 Dose: 75 mls/hr Ketorolac Tromethamine (Toradol) 15 mg IM Q8 PRN PRN Reason: Pain, Mild (1-3) Last Admin: 11/13/16 20:26 Dose: 15 mg Ondansetron HCl (Zofran Inj) 4 mg IVP Q4 PRN PRN Reason: Nausea/Vomiting Last Admin: 11/13/16 18:46 Dose: 4 mg Pantoprazole Sodium (Protonix Inj) 40 mg IVP BID [facility] Last Admin: 11/13/16 20:18 Dose: 40 mg Thiamine HCl (Vitamin B1 Tab) 100 mg PO DAILY [facility] Last Admin: 11/13/16 13:32 Dose: 100 mg - Labs Labs: 11/13/16 08:50 11/13/16 08:50 PT 13.6 Seconds (9.9-11.8) H 11/12/16 05:30 INR 1.26 (0.93-1.08) H 11/12/16 05:30 APTT 35.8 Seconds (23.7-30.8) H 11/12/16 05:30 Assessment and Plan - Assessment and Plan (Free Text) Assessment: Patient was seen and examined by me. I agree with assessment and plan as per resident's note.
[2016-11-13] MEDS: Sodium Chloride 0.9% 100 ML IV SCH ×2 (10:30→11:30)
--- NOTE | 2016-11-13 10:59 | CP.PCM.PN ---
<Rosalina Silva - Last Filed: 11/13/16 10:52> Subjective - Date & Time of Evaluation Date of Evaluation: 11/13/16 Time of Evaluation: 07:15 - Subjective Subjective: Patient seen and examined at bedside. No acute events overnight night. Patient still complains of abdominal pain but improved compared to a day prior. Patient is still bedbound. Denies having headache, fever, chills, chest pain, nausea, or vomiting. Objective - Vital Signs/Intake and Output Vital Signs (last 24 hours): Temp Pulse Resp BP Pulse Ox 98.6 F 88 20 148/70 96 11/13/16 06:00 11/13/16 06:00 11/13/16 06:00 11/13/16 06:00 11/13/16 06:00 Intake and Output: 11/13/16 11/13/16 06:59 18:59 Intake Total 1598 Output Total 1200 Balance 398 - Medications Medications: Current Medications Acetaminophen (Tylenol 325mg Tab) 650 mg PO Q4H PRN PRN Reason: Fever >100.4 F Folic Acid (Folic Acid) 1 mg IVP DAILY [facility] Last Admin: 11/13/16 10:39 Dose: 1 mg Piperacillin Sod/Tazobactam Sod (Zosyn 3.375 In Ns 100ml) 100 mls @ 200 mls/hr IVPB Q6 [facility] PRN Reason: Protocol Stop: 11/18/16 08:01 Last Admin: 11/13/16 05:07 Dose: 200 mls/hr Multivitamins/Vitamin C 10 ml/Amino Acids/Electrolytes/Dextrose 2,010 mls @ 83 mls/hr IV .Q24H [facility] Stop: 11/15/16 17:59 Last Admin: 11/12/16 19:03 Dose: 83 mls/hr Fat Emulsion Intravenous (Intralipid 20%) 250 mls @ 21 mls/hr IV DAILY@1800 [facility] Stop: 11/15/16 05:55 Last Admin: 11/12/16 19:03 Dose: 21 mls/hr Potassium Chloride 10 meq/ (Dextrose/Sodium Chloride) 1,005 mls @ 50 mls/hr IV .Q20H6M [facility] Last Admin: 11/13/16 00:02 Dose: 50 mls/hr Sodium Chloride (Sodium Chloride 0.9%) 100 mls @ 100 mls/hr IV .Q1H [facility] Ketorolac Tromethamine (Toradol) 15 mg IM Q8 PRN PRN Reason: Pain, Mild (1-3) Last Admin: 11/12/16 18:43 Dose: 15 mg Ondansetron HCl (Zofran Inj) 4 mg IVP Q4 PRN PRN Reason: Nausea/Vomiting Last Admin: 11/13/16 05:07 Dose: 4 mg Pantoprazole Sodium (Protonix Inj) 40 mg IVP BID [facility] Last Admin: 11/13/16 09:50 Dose: 40 mg Thiamine HCl (Vitamin B1 Tab) 100 mg PO DAILY [facility] Last Admin: 11/12/16 09:08 Dose: 100 mg - Labs Labs: 11/13/16 08:50 11/13/16 08:50 PT 13.6 Seconds (9.9-11.8) H 11/12/16 05:30 INR 1.26 (0.93-1.08) H 11/12/16 05:30 APTT 35.8 Seconds (23.7-30.8) H 11/12/16 05:30 - Constitutional Appears: Well, No Acute Distress - Head Exam Head Exam: ATRAUMATIC, NORMAL INSPECTION, NORMOCEPHALIC - Eye Exam Eye Exam: EOMI, Normal appearance, PERRL. absent: Scleral icterus - ENT Exam ENT Exam: Mucous Membranes Moist - Neck Exam Neck Exam: Normal Inspection - Respiratory Exam Respiratory Exam: Clear to Ausculation Bilateral, NORMAL BREATHING PATTERN. absent: Wheezes, Respiratory Distress - Cardiovascular Exam Cardiovascular Exam: REGULAR RHYTHM, RRR, +S1, +S2. absent: Murmur - GI/Abdominal Exam GI & Abdominal Exam: Distended, Tenderness (periumbilical tenderness) - Extremities Exam Extremities Exam: Normal Inspection - Neurological Exam Neurological Exam: Alert, Awake, Oriented x3 - Psychiatric Exam Psychiatric exam: Normal Affect, Normal Mood - Skin Skin Exam: Dry, Intact, Normal Color, Warm Assessment and Plan - Assessment and Plan (Free Text) Assessment: 51 year old male with past medial history of Pancreatitis, ETOH abuse, Thoracic Aneurysm here with Abd pain. Found to have multiple pseudocysts: Pancreas, SB, Colon 1. Abd pain with Multiple large Psudocysts: Pancreas, SB, Colon Repeat CT - Acute pancreatitis with large pancreatitic pseudocyst, pancreatic ductal dilatation; Pseudocysts in the wall of descending colon and stomach IR drainage consult, pseudocyst drainage tomorrow GI following, appreciate recs Consider transfer to [facility] facility to clarify the origination of psuedocysts vs EUS by Dr. Montaño Surgery following, appreciate recs Contine PPN, D5 NS @50ml/hr Start NS@ 100ml/hr NPO morphine prn Toradol Elevated Amylase/Lipase today 1127/646 2. Hx of HTN Stable at this time Continue to monitor 3. Hx of thoracic/abdominal aneurysm Surgery states no surgical intervention at this time F/u with CardioThoracic surgeon who did the surgery. Cardiology following Echo: EF 61% 4. focal colitis on CT/elevated white count Increase in WBC: 15 today ABX per ID Zosyn prn blood culture from 11/07/16 shows coagulase negative staph blood culture from 11/10/16 negative growth after 3 days Stool culture negative Repeat cxs negative stool c diff studies negative 5. Hx of HLD -Continue Lipitor 6. EtOH/Substance abuse Urine tox : Opiate, Methadone + Thiamine Counseled on abstinence Methadone 60mg given today 7. PPx SCDs protonix <Johanny HUGHES,Luis Manuel - Last Filed: 11/13/16 13:14> Objective - Vital Signs/Intake and Output Vital Signs (last 24 hours): Temp Pulse Resp BP Pulse Ox 98.6 F 126 H 20 148/70 96 11/13/16 06:00 11/13/16 10:00 11/13/16 06:00 11/13/16 06:00 11/13/16 06:00 Intake and Output: 11/13/16 11/13/16 06:59 18:59 Intake Total 1598 Output Total 1200 Balance 398 - Medications Medications: Current Medications Acetaminophen (Tylenol 325mg Tab) 650 mg PO Q4H PRN PRN Reason: Fever >100.4 F Folic Acid (Folic Acid) 1 mg IVP DAILY [facility] Last Admin: 11/13/16 10:39 Dose: 1 mg Piperacillin Sod/Tazobactam Sod (Zosyn 3.375 In Ns 100ml) 100 mls @ 200 mls/hr IVPB Q6 [facility] PRN Reason: Protocol Stop: 11/18/16 08:01 Last Admin: 11/13/16 05:07 Dose: 200 mls/hr Multivitamins/Vitamin C 10 ml/Amino Acids/Electrolytes/Dextrose 2,010 mls @ 83 mls/hr IV .Q24H [facility] Stop: 11/15/16 17:59 Last Admin: 11/12/16 19:03 Dose: 83 mls/hr Fat Emulsion Intravenous (Intralipid 20%) 250 mls @ 21 mls/hr IV DAILY@1800 [facility] Stop: 11/15/16 05:55 Last Admin: 11/12/16 19:03 Dose: 21 mls/hr Sodium Chloride (Sodium Chloride 0.9%) 1,000 mls @ 75 mls/hr IV .[id number] [facility] Ketorolac Tromethamine (Toradol) 15 mg IM Q8 PRN PRN Reason: Pain, Mild (1-3) Last Admin: 11/12/16 18:43 Dose: 15 mg Ondansetron HCl (Zofran Inj) 4 mg IVP Q4 PRN PRN Reason: Nausea/Vomiting Last Admin: 11/13/16 05:07 Dose: 4 mg Pantoprazole Sodium (Protonix Inj) 40 mg IVP BID [facility] Last Admin: 11/13/16 09:50 Dose: 40 mg Thiamine HCl (Vitamin B1 Tab) 100 mg PO DAILY [facility] Last Admin: 11/12/16 09:08 Dose: 100 mg - Labs Labs: 11/13/16 08:50 11/13/16 08:50 PT 13.6 Seconds (9.9-11.8) H 11/12/16 05:30 INR 1.26 (0.93-1.08) H 11/12/16 05:30 APTT 35.8 Seconds (23.7-30.8) H 11/12/16 05:30 Attending/Attestation - Attestation I have personally seen and examined this patient.: Yes I have fully participated in the care of the patient.: Yes I have reviewed all pertinent clinical information, including history, physical exam and plan: Yes Notes (Text): Patient was seen and examined with medical office secretary .Agreed with resident assessment and plan. 50 year old male with PMH of alcoholism, history of pancreatitis, history of thoracic aneurysm S/P repair in 2014, chronic back pain on methadone therapy, dyslipidemia was admitted with abdominal pain, he is found to have multiple Pancreatic cyst on 2nd CT abdomen and Pelvis as well as on MRCP, he is on PPN, plan for drainage of cyst by Dr.Peter Street tomorrow, As per GI ,patient will need EUS also, and depending on EUS ,may need open surgery , if surgery is required need to be transferred [facility].GI and surgery are following. One of blood cultures grew coagulase stap likely contaminated on IV zosyn as per ID.Repeat cultures are negative. Patient is very non compliance and he was refusing PPN and IV fluid today, discuss with him in detail.He is agreeable now, discuss with nurse who is taking care of her. Management plan was discussed in detail with patient Education was provided.
--- NOTE | 2016-11-13 11:59 | CP.PCM.PN ---
Subjective - Date & Time of Evaluation Date of Evaluation: 11/13/16 Time of Evaluation: 10:55 - Subjective Subjective: Patient continues to complain of abdominal pain; no fevers overnight, no nausea currently, no diarrhea. Currently NPO. Objective - Vital Signs/Intake and Output Vital Signs (last 24 hours): Temp Pulse Resp BP Pulse Ox 98.6 F 126 H 20 148/70 96 11/13/16 06:00 11/13/16 10:00 11/13/16 06:00 11/13/16 06:00 11/13/16 06:00 Intake and Output: 11/13/16 11/13/16 06:59 18:59 Intake Total 1598 Output Total 1200 Balance 398 - Medications Medications: Current Medications Acetaminophen (Tylenol 325mg Tab) 650 mg PO Q4H PRN PRN Reason: Fever >100.4 F Folic Acid (Folic Acid) 1 mg IVP DAILY [facility] Last Admin: 11/13/16 10:39 Dose: 1 mg Piperacillin Sod/Tazobactam Sod (Zosyn 3.375 In Ns 100ml) 100 mls @ 200 mls/hr IVPB Q6 [facility] PRN Reason: Protocol Stop: 11/18/16 08:01 Last Admin: 11/13/16 05:07 Dose: 200 mls/hr Multivitamins/Vitamin C 10 ml/Amino Acids/Electrolytes/Dextrose 2,010 mls @ 83 mls/hr IV .Q24H [facility] Stop: 11/15/16 17:59 Last Admin: 11/12/16 19:03 Dose: 83 mls/hr Fat Emulsion Intravenous (Intralipid 20%) 250 mls @ 21 mls/hr IV DAILY@1800 [facility] Stop: 11/15/16 05:55 Last Admin: 11/12/16 19:03 Dose: 21 mls/hr Sodium Chloride (Sodium Chloride 0.9%) 1,000 mls @ 75 mls/hr IV .[id number] [facility] Ketorolac Tromethamine (Toradol) 15 mg IM Q8 PRN PRN Reason: Pain, Mild (1-3) Last Admin: 11/12/16 18:43 Dose: 15 mg Ondansetron HCl (Zofran Inj) 4 mg IVP Q4 PRN PRN Reason: Nausea/Vomiting Last Admin: 11/13/16 05:07 Dose: 4 mg Pantoprazole Sodium (Protonix Inj) 40 mg IVP BID [facility] Last Admin: 11/13/16 09:50 Dose: 40 mg Thiamine HCl (Vitamin B1 Tab) 100 mg PO DAILY [facility] Last Admin: 11/12/16 09:08 Dose: 100 mg - Labs Labs: 11/13/16 08:50 11/13/16 08:50 PT 13.6 Seconds (9.9-11.8) H 11/12/16 05:30 INR 1.26 (0.93-1.08) H 11/12/16 05:30 APTT 35.8 Seconds (23.7-30.8) H 11/12/16 05:30 - Constitutional Appears: Non-toxic, No Acute Distress - Head Exam Head Exam: NORMAL INSPECTION - ENT Exam ENT Exam: Mucous Membranes Moist - Neck Exam Neck Exam: absent: Lymphadenopathy, Meningismus - Respiratory Exam Respiratory Exam: Decreased Breath Sounds - Cardiovascular Exam Cardiovascular Exam: +S1, +S2 - GI/Abdominal Exam GI & Abdominal Exam: Soft, Tenderness (diffuse). absent: Distended, Firm, Guarding, Rigid, Rebound Assessment and Plan - Assessment and Plan (Free Text) Plan: Assessment Sepsis probably secondary to acute descending colon colitis, on top of chronic pancreatitis, as well as pseudocysts which may be infected Coagulase negative staph in 1 of 4 sets, consider contamination alcoholism history of pancreatitis history of thoracic aneurysm S/P repair in 2014 dyslipidemia Plan continue Zosyn day 3; repeat blood cx are negative Follow up plan for drainage of the pseudocysts to rule out infected pseudocysts (plan for drainage tomorrow) Will continue to follow clinically
[2016-11-13] MEDS: Sodium Chloride 0.9% 1,000 ML IV SCH (13:33)
--- NOTE | 2016-11-13 15:27 | RAD ---
HISTORY: pre-procedure, sepsis COMPARISON: 11/10/2016 FINDINGS: LUNGS: No active pulmonary disease. PLEURA: Small left effusion CARDIOVASCULAR: Normal. OSSEOUS STRUCTURES: No significant abnormalities. VISUALIZED UPPER ABDOMEN: Normal. OTHER FINDINGS: None. IMPRESSION: No active disease.
[2016-11-13] MEDS: Fat Emulsion 20% IV 250 ML IV SCH (18:21)
[2016-11-14] MEDS: Piperacillin/Tazobact 3.375 gm 100 ML IVPB SCH ×3 (05:09→17:28)
[2016-11-14] MEDS: Sodium Chloride 0.9% 1,000 ML IV SCH ×2 (05:09→22:35)
--- NOTE | 2016-11-14 06:01 | PN ---
DATE: 11/14/2016 SUBJECTIVE: I examined the patient this morning. He is a 51-year-old black male with history of substance abuse, admitted with signs and symptoms of pancreatitis and left lower quadrant that is the descending and sigmoid colon colitis condition. The patient has made some progress over the past couple of days but still complaining about abdominal pain which is in the range of 5/10. No nausea, vomiting, hematemesis or rectal bleeding noted. Diarrhea has sort of fizzled out due to lack of oral intake. Still squirts periodically. PHYSICAL EXAMINATION: VITAL SIGNS: I reviewed this patient's vital signs. HEENT: Significant for dry mouth. LUNGS: Some crackles left base, decreased breath sounds on the right side. HEART: Irregular rhythm. ABDOMEN: Distended, oil process stillman periumbilical, left upper quadrant, left paraumbilical and left lower quadrant. Irregular bowel sounds. LABORATORY DATA: Pending for today. OVERALL ASSESSMENT: This is a 51-year-old black male with a clinical scenario of pancreatitis with multiple pseudocysts formations. He is tentatively scheduled for the largest pseudocyst drainage today by Dr. Gwyn Street. As indicated previously due to sheer number of cysts involved and adequate imaging. As indicated previously I think this patient needs extensive [facility] evaluation and followup at [facility] facility. There is still question whether he has some degree of chronic pancreatitis, which may need some degree of debridement, possibly endoscopically. Note that the patient should have an aspirate of the pseudocyst sent for the appropriate testing including the ascites. The procedure will be accomplished sometime later on today. At least for the time being, he is n.p.o., fairly comfortable; however, still exhibiting abdominal pain. Further elaboration of studies are elaborated in my prior notes. Tr Posada DO, PhD cc: [id number] TT: 11/14/2016 06:00:47 Confirmation # [id number] Dictation # [id number] [id number]
[2016-11-14 07:14] LABS: HEMATOCRIT 24.5 % (42.0-52.0); MEAN CORPUSCULAR HEMOGLOBIN 26.9 pg (25.0-35.0); MEAN CORPUSCULAR HGB CONC 36.3 g/dl (31.0-37.0); MEAN PLATELET VOLUME 9.8 fl (7.0-11.0); RED CELL DISTRIBUTION WIDTH 15.4 % (11.5-14.5); WHITE BLOOD COUNT 16.8 10^3/ul (4.5-11.0)
[2016-11-14 07:38] LABS: ALB/GLOB RATIO 0.7 (1.1-1.8); ALKALINE PHOSPHATASE 480 U/L (38-133); ALT/SGPT 45 U/L (7-56); AMYLASE 668 U/L (35-125); AST/SGOT 72 U/L (15-59); BILIRUBIN,TOTAL 0.5 mg/dL (0.2-1.3); BLOOD UREA NITROGEN 11 mg/dL (7-21); CALCIUM 7.9 mg/dL (8.4-10.5); CARBON DIOXIDE 29 mmol/L (21-33); CHLORIDE 101 mmol/L (98-107); GFR AFRICAN-AMERICAN > 60; GLUCOSE,RANDOM 99 mg/dL (70-110); LIPASE 466 U/L (23-300); MAGNESIUM 1.8 mg/dL (1.7-2.2); PHOSPHOROUS 4.9 mg/dL (2.5-4.5); POTASSIUM 4.1 mmol/L (3.6-5.0); SODIUM 138 mmol/L (132-148)
--- NOTE | 2016-11-14 08:36 | CP.PCM.PN ---
<Arsenio Ye - Last Filed: 11/14/16 08:38> Subjective - Date & Time of Evaluation Date of Evaluation: 11/14/16 Time of Evaluation: 08:28 - Subjective Subjective: SURGERY PROGRESS NOTE FOR DR. GRAY 51M seen and examined at bedside. Patient states pain is improving, denies nausea/vomiting, diarrhea. Admits to passing gas. Objective - Vital Signs/Intake and Output Vital Signs (last 24 hours): Temp Pulse Resp BP Pulse Ox 98.7 F 91 H 19 143/81 94 L 11/14/16 06:00 11/14/16 06:00 11/14/16 06:00 11/14/16 06:00 11/14/16 06:00 Intake and Output: 11/14/16 11/14/16 06:59 18:59 Intake Total 2220 Output Total 1200 Balance 1020 - Medications Medications: Current Medications Acetaminophen (Tylenol 325mg Tab) 650 mg PO Q4H PRN PRN Reason: Fever >100.4 F Last Admin: 11/13/16 13:34 Dose: 650 mg Folic Acid (Folic Acid) 1 mg IVP DAILY [facility] Last Admin: 11/13/16 10:39 Dose: 1 mg Piperacillin Sod/Tazobactam Sod (Zosyn 3.375 In Ns 100ml) 100 mls @ 200 mls/hr IVPB Q6 [facility] PRN Reason: Protocol Stop: 11/18/16 08:01 Last Admin: 11/14/16 05:09 Dose: 200 mls/hr Multivitamins/Vitamin C 10 ml/Amino Acids/Electrolytes/Dextrose 2,010 mls @ 83 mls/hr IV .Q24H [facility] Stop: 11/15/16 17:59 Last Admin: 11/13/16 18:22 Dose: 83 mls/hr Fat Emulsion Intravenous (Intralipid 20%) 250 mls @ 21 mls/hr IV DAILY@1800 [facility] Stop: 11/15/16 05:55 Last Admin: 11/13/16 18:21 Dose: 21 mls/hr Sodium Chloride (Sodium Chloride 0.9%) 1,000 mls @ 75 mls/hr IV .[id number] [facility] Last Admin: 11/14/16 05:09 Dose: 75 mls/hr Ketorolac Tromethamine (Toradol) 15 mg IM Q8 PRN PRN Reason: Pain, Mild (1-3) Last Admin: 11/13/16 20:26 Dose: 15 mg Ondansetron HCl (Zofran Inj) 4 mg IVP Q4 PRN PRN Reason: Nausea/Vomiting Last Admin: 11/13/16 18:46 Dose: 4 mg Pantoprazole Sodium (Protonix Inj) 40 mg IVP BID [facility] Last Admin: 11/13/16 20:18 Dose: 40 mg Thiamine HCl (Vitamin B1 Tab) 100 mg PO DAILY [facility] Last Admin: 11/13/16 13:32 Dose: 100 mg - Labs Labs: 11/14/16 06:45 11/14/16 06:45 PT 13.6 Seconds (9.9-11.8) H 11/12/16 05:30 INR 1.26 (0.93-1.08) H 11/12/16 05:30 APTT 35.8 Seconds (23.7-30.8) H 11/12/16 05:30 - Constitutional Appears: Non-toxic, No Acute Distress - Head Exam Head Exam: ATRAUMATIC - Respiratory Exam Respiratory Exam: Clear to Ausculation Bilateral, NORMAL BREATHING PATTERN - Cardiovascular Exam Cardiovascular Exam: REGULAR RHYTHM, +S1, +S2 - GI/Abdominal Exam GI & Abdominal Exam: Distended, Firm (firmness is improving), Tenderness. absent: Guarding, Rigid, Rebound - Neurological Exam Neurological Exam: Alert, Awake - Skin Skin Exam: Dry, Intact, Normal Color, Warm Assessment and Plan - Assessment and Plan (Free Text) Assessment: 51 yo M w/PMHx of EOTH abuse presents for Pancreatitis, chronic residual aortic dissection, thoracic aneurism h/o thoracic dissection repair, colitis. Repeat ab CT showed new multiple pseudocysts and dilation of pancreatic duct, acute pancreatitis. MRCP: multiple tiny T2 hyperdensities consistent with dilated side duct radicles arising from ...dilated pancreatic duct. Multiple pseudocyts.... abdominal ascites. Plan: - NPO, patient on PPN - continue abx - serial abd exams - Scheduled for IR drainage of pseudocysts - We will continue to follow Further recs discuss with Dr. Marina Ye, PGY1 <Finn Gray - Last Filed: 11/15/16 08:06> Subjective - Date & Time of Evaluation Date of Evaluation: 11/14/16 Time of Evaluation: 10:25 Objective - Vital Signs/Intake and Output Vital Signs (last 24 hours): Temp Pulse Resp BP Pulse Ox 98.5 F 83 20 150/80 92 L 11/15/16 06:00 11/15/16 06:00 11/15/16 06:00 11/15/16 06:00 11/15/16 00:01 Intake and Output: 11/15/16 11/15/16 06:59 18:59 Intake Total 2125 Output Total 2200 Balance -75 - Medications Medications: Current Medications Acetaminophen (Tylenol 325mg Tab) 650 mg PO Q4H PRN PRN Reason: Fever >100.4 F Last Admin: 11/13/16 13:34 Dose: 650 mg Folic Acid (Folic Acid) 1 mg IVP DAILY [facility] Last Admin: 11/14/16 12:20 Dose: 1 mg Piperacillin Sod/Tazobactam Sod (Zosyn 3.375 In Ns 100ml) 100 mls @ 200 mls/hr IVPB Q6 [facility] PRN Reason: Protocol Stop: 11/18/16 08:01 Last Admin: 11/15/16 06:37 Dose: 200 mls/hr Multivitamins/Vitamin C 10 ml/Amino Acids/Electrolytes/Dextrose 2,010 mls @ 83 mls/hr IV .Q24H [facility] Stop: 11/15/16 17:59 Last Admin: 11/14/16 18:10 Dose: 83 mls/hr Sodium Chloride (Sodium Chloride 0.9%) 1,000 mls @ 75 mls/hr IV .[id number] [facility] Last Admin: 11/14/16 22:35 Dose: 75 mls/hr Potassium Chloride (Potassium Chloride 20 Meq/100 Ml) 100 mls @ 50 mls/hr IVPB Q2H [facility] Stop: 11/15/16 11:14 Last Admin: 11/15/16 07:29 Dose: 50 mls/hr Ketorolac Tromethamine (Toradol) 15 mg IM Q8 PRN PRN Reason: Pain, Mild (1-3) Last Admin: 11/15/16 00:27 Dose: 15 mg Ondansetron HCl (Zofran Inj) 4 mg IVP Q4 PRN PRN Reason: Nausea/Vomiting Last Admin: 11/14/16 22:36 Dose: 4 mg Pantoprazole Sodium (Protonix Inj) 40 mg IVP BID [facility] Last Admin: 11/14/16 17:28 Dose: 40 mg Thiamine HCl (Vitamin B1 Tab) 100 mg PO DAILY [facility] Last Admin: 11/14/16 11:58 Dose: 100 mg - Labs Labs: 11/15/16 06:00 11/15/16 06:00 PT 13.6 Seconds (9.9-11.8) H 11/12/16 05:30 INR 1.26 (0.93-1.08) H 11/12/16 05:30 APTT 35.8 Seconds (23.7-30.8) H 11/12/16 05:30 Assessment and Plan - Assessment and Plan (Free Text) Assessment: Patient was seen and examined by me. I agree with assessment and plan as per resident's note.
[2016-11-14] MEDS ORDERED: Midazolam 2 MG/2 ML VIAL ONE (09:32)
--- NOTE | 2016-11-14 10:43 | CT ---
PROCEDURE: CT-guided pancreatic pseudocyst drainage HISTORY: Alcohol and drug abuse. Pancreatic pseudocysts. Needs drainage. PHYSICIAN(S): Gwyn Street MD. TECHNIQUE: The relative risks and indications for the procedure were explained to the patient and informed consent obtained. The patient was placed in a slight right decubitus position on the CT scanner and preliminary images through the abdomen performed. This revealed a 8 cm pseudocyst anterior to the tail of the pancreas and a smaller 4 cm pseudocyst adjacent to the splenic flexure.. The 4 cm pseudocyst appears to be smaller and will not be drained at this time. A left anterior oblique approach was selected and the area prepped/draped in the usual sterile fashion. Conscious sedation and monitoring were provided throughout the procedure by nurse. An 18-gauge needle was advanced into the collection and 5 cc of serosanguineous fluid aspirated. A specimen was sent to microbiology. A 0.035 J-wire was coiled within the fluid collection. Sequential dilatation was performed with subsequent placement of a 12 Macedonian pigtail drain. Approximately 100 cc of serosanguineous fluid was aspirated. The cavity was lavaged with normal saline. The drain was sutured to the skin and placed to gravity drainage. Completion images were performed. The patient tolerated the procedure well. IMPRESSION: 1. CT-guided pancreatic pseudocystdrainage as described above. 2. A followup CT scan is recommended in 5-7 days.
--- NOTE | 2016-11-14 18:06 | CP.PCM.PN ---
<SilvestreChetna - Last Filed: 11/14/16 18:19> Subjective - Date & Time of Evaluation Date of Evaluation: 11/14/16 Time of Evaluation: 07:50 - Subjective Subjective: Pt seen and evaluated at the bedside. Pt denies SOb, chest pain, N/V and abdominal pain. Claim BM overnight, watery. Objective - Vital Signs/Intake and Output Vital Signs (last 24 hours): Temp Pulse Resp BP Pulse Ox 99.1 F 93 H 20 141/86 97 11/14/16 12:00 11/14/16 14:00 11/14/16 12:00 11/14/16 12:00 11/14/16 11:14 Intake and Output: 11/14/16 11/14/16 06:59 18:59 Intake Total 2220 100 Output Total 1200 150 Balance 1020 -50 - Medications Medications: Current Medications Acetaminophen (Tylenol 325mg Tab) 650 mg PO Q4H PRN PRN Reason: Fever >100.4 F Last Admin: 11/13/16 13:34 Dose: 650 mg Folic Acid (Folic Acid) 1 mg IVP DAILY [facility] Last Admin: 11/14/16 12:20 Dose: 1 mg Piperacillin Sod/Tazobactam Sod (Zosyn 3.375 In Ns 100ml) 100 mls @ 200 mls/hr IVPB Q6 [facility] PRN Reason: Protocol Stop: 11/18/16 08:01 Last Admin: 11/14/16 17:28 Dose: 200 mls/hr Multivitamins/Vitamin C 10 ml/Amino Acids/Electrolytes/Dextrose 2,010 mls @ 83 mls/hr IV .Q24H [facility] Stop: 11/15/16 17:59 Last Admin: 11/13/16 18:22 Dose: 83 mls/hr Sodium Chloride (Sodium Chloride 0.9%) 1,000 mls @ 75 mls/hr IV .[id number] [facility] Last Admin: 11/14/16 05:09 Dose: 75 mls/hr Ketorolac Tromethamine (Toradol) 15 mg IM Q8 PRN PRN Reason: Pain, Mild (1-3) Last Admin: 11/14/16 15:52 Dose: 15 mg Ondansetron HCl (Zofran Inj) 4 mg IVP Q4 PRN PRN Reason: Nausea/Vomiting Last Admin: 11/14/16 12:25 Dose: 4 mg Pantoprazole Sodium (Protonix Inj) 40 mg IVP BID [facility] Last Admin: 11/14/16 17:28 Dose: 40 mg Thiamine HCl (Vitamin B1 Tab) 100 mg PO DAILY [facility] Last Admin: 11/14/16 11:58 Dose: 100 mg - Labs Labs: 11/14/16 06:45 11/14/16 06:45 PT 13.6 Seconds (9.9-11.8) H 11/12/16 05:30 INR 1.26 (0.93-1.08) H 11/12/16 05:30 APTT 35.8 Seconds (23.7-30.8) H 11/12/16 05:30 - Constitutional Appears: Non-toxic, No Acute Distress - Head Exam Head Exam: NORMAL INSPECTION - Eye Exam Eye Exam: EOMI, PERRL - Respiratory Exam Respiratory Exam: Clear to Ausculation Bilateral, NORMAL BREATHING PATTERN - Cardiovascular Exam Cardiovascular Exam: Tachycardia, +S1, +S2 - GI/Abdominal Exam GI & Abdominal Exam: Soft. absent: Tenderness - Exam External exam: absent: Ecchymosis, Erythema - Extremities Exam Extremities Exam: Normal Capillary Refill. absent: Tenderness - Neurological Exam Neurological Exam: Alert, Awake - Psychiatric Exam Psychiatric exam: Normal Affect, Normal Mood - Skin Skin Exam: Intact, Normal Color Assessment and Plan - Assessment and Plan (Free Text) Plan: 51 year old male with past medial history of Pancreatitis, ETOH abuse, Thoracic Aneurysm here with Abd pain. Found to have multiple pseudocysts. IR drainage of pseudocyst today Abd pain with Multiple large Psudocysts Repeat CT - Acute pancreatitis with large pancreatitic pseudocyst, pancreatic ductal dilatation; Pseudocysts in the wall of descending colon and stomach IR drainage consult, pseudocyst drainage today: 105 cc serosanguinous drained, repeat procedure in 5-7 days GI following, appreciate recs As per GI, transfer to outside ([facility]) facility to clarify the origination of psuedocysts vs EUS, and for additional procedures Surgery following, appreciate recs Continue PPN NS@ 75ml/hr NPO Toradol Elevated Amylase/Lipase today but on downtrend 668(today)<---1127, 466 (today)< ---646 2. Hx of HTN Stable at this time Continue to monitor 3. Hx of thoracic/abdominal aneurysm Surgery states no surgical intervention at this time F/u with CardioThoracic surgeon who did the surgery. Cardiology following Echo: EF 61% 4. focal colitis on CT/elevated white count Increase in WBC: 15 yesterday, 16.8 today ABX per ID Zosyn blood culture from 11/07/16 shows coagulase negative staph blood culture from 11/10/16 negative growth after 4 days Stool culture negative Repeat cxs negative stool c diff studies negative 5. EtOH/Substance abuse Urine tox : Opiate, Methadone + Thiamine Counseled on abstinence Methadone 60mg given today 6. PPx SCDs protonix <Felisha Copeland A - Last Filed: 11/14/16 22:19> Objective - Vital Signs/Intake and Output Vital Signs (last 24 hours): Temp Pulse Resp BP Pulse Ox 99.5 F 99 H 20 135/86 97 11/14/16 18:00 11/14/16 18:00 11/14/16 18:00 11/14/16 18:00 11/14/16 11:14 Intake and Output: 11/14/16 11/15/16 18:59 06:59 Intake Total 100 Output Total 150 800 Balance -50 -800 - Medications Medications: Current Medications Acetaminophen (Tylenol 325mg Tab) 650 mg PO Q4H PRN PRN Reason: Fever >100.4 F Last Admin: 11/13/16 13:34 Dose: 650 mg Folic Acid (Folic Acid) 1 mg IVP DAILY [facility] Last Admin: 11/14/16 12:20 Dose: 1 mg Piperacillin Sod/Tazobactam Sod (Zosyn 3.375 In Ns 100ml) 100 mls @ 200 mls/hr IVPB Q6 [facility] PRN Reason: Protocol Stop: 11/18/16 08:01 Last Admin: 11/14/16 17:28 Dose: 200 mls/hr Multivitamins/Vitamin C 10 ml/Amino Acids/Electrolytes/Dextrose 2,010 mls @ 83 mls/hr IV .Q24H [facility] Stop: 11/15/16 17:59 Last Admin: 11/14/16 18:10 Dose: 83 mls/hr Sodium Chloride (Sodium Chloride 0.9%) 1,000 mls @ 75 mls/hr IV .[id number] [facility] Last Admin: 11/14/16 05:09 Dose: 75 mls/hr Ketorolac Tromethamine (Toradol) 15 mg IM Q8 PRN PRN Reason: Pain, Mild (1-3) Last Admin: 11/14/16 15:52 Dose: 15 mg Ondansetron HCl (Zofran Inj) 4 mg IVP Q4 PRN PRN Reason: Nausea/Vomiting Last Admin: 11/14/16 12:25 Dose: 4 mg Pantoprazole Sodium (Protonix Inj) 40 mg IVP BID [facility] Last Admin: 11/14/16 17:28 Dose: 40 mg Thiamine HCl (Vitamin B1 Tab) 100 mg PO DAILY [facility] Last Admin: 11/14/16 11:58 Dose: 100 mg - Labs Labs: 11/14/16 06:45 11/14/16 06:45 PT 13.6 Seconds (9.9-11.8) H 11/12/16 05:30 INR 1.26 (0.93-1.08) H 11/12/16 05:30 APTT 35.8 Seconds (23.7-30.8) H 11/12/16 05:30 Attending/Attestation - Attestation I have personally seen and examined this patient.: Yes I have fully participated in the care of the patient.: Yes I have reviewed all pertinent clinical information, including history, physical exam and plan: Yes Notes (Text): 11/14/16 22:14 51 year old male with past medical history of alcohol abuse, substance abuse and pancreatitis who presented with abdominal pain. CT abd/pelvis showed large pancreatic pseudocyst and colitis. GI is following the patient. He went for IR drainage today. Continue with iv antibiotics as per ID while awaiting cultures. Will discuss with GI regarding possible EUS vs transfer to [facility]. He is NPO on iv fluids and PPN. Felisha Copeland MD Hospitalist.
[2016-11-14] MEDS: Fat Emulsion 20% IV 250 ML IV SCH (18:11)
--- NOTE | 2016-11-14 20:44 | PN ---
DATE: 11/14/2016 The patient was seen earlier today in bed in no acute distress, nontoxic, in 265, bed 1. PHYSICAL EXAMINATION: VITAL SIGNS: Temperature 98, blood pressure is 130/80, respiratory rate of 18. HEENT: Unremarkable. NECK: Supple. LUNGS: Have decreased breath sounds. HEART: Normal S1, S2. ABDOMEN: Soft, nontender. LABORATORY DATA: Reveals a white count of 16,800, hemoglobin of 8 and platelets of 368. Coagulation is noted. Chemistries reveal the BUN of 11, creatinine of 0.5. Amylase and lipase are noted to be elevated. Urinalysis is noted and serology revealed HIV is negative. Microbiology reveals the patie nt has 1 blood culture positive for coag negative staph and body fluid culture is pending. Review of systems reveals the patient to be on Zosyn. ASSESSMENT AND PLAN: This is a 51-year-old with sepsis secondary to acute descending colon colitis, chronic pancreatitis and pseudocyst and coag negative staph in 1 blood culture, on Zosyn day #3. The patient had a procedure today, which was done by Dr. Gwyn Street, a CAT scan guided drainage of an a bscess. We will check on the cultures of that fluid, this was a CAT scan guided pancreatic pseudocys t drainage. Dr. Chetna Rivers's note is reviewed. We will follow with you. Sukhdeep Fox MD cc: [id number] TT: 11/14/2016 20:44:04 Confirmation # [id number] Dictation # [id number] loni
[2016-11-15] MEDS: Piperacillin/Tazobact 3.375 gm 100 ML IVPB SCH ×4 (00:28→17:20)
[2016-11-15 06:43] LABS: ALKALINE PHOSPHATASE 273 U/L (38-133); ALT/SGPT 34 U/L (7-56); AST/SGOT 39 U/L (15-59); BILIRUBIN,TOTAL 0.3 mg/dL (0.2-1.3); BLOOD UREA NITROGEN 9 mg/dL (7-21); CALCIUM 7.7 mg/dL (8.4-10.5); CARBON DIOXIDE 29 mmol/L (21-33); CHLORIDE 100 mmol/L (95-110); GFR AFRICAN-AMERICAN > 60; GLUCOSE,RANDOM 85 mg/dL (70-110); LIPASE 211 U/L (23-300); POTASSIUM 3.4 mmol/L (3.6-5.0); SODIUM 135 mmol/L (132-148); TOTAL PROTEIN 4.9 g/dL (5.8-8.3)
[2016-11-15 06:54] LABS: ALB/GLOB RATIO 0.6 (1.1-1.8); AMYLASE 338 U/L (35-125)
[2016-11-15 07:04] LABS: MEAN CELL VOLUME 73.4 fL (80.0-105.0); MEAN CORPUSCULAR HGB CONC 36.8 g/dl (31.0-37.0); MEAN PLATELET VOLUME 9.8 fl (7.0-11.0); RED CELL DISTRIBUTION WIDTH 15.7 % (11.5-14.5); WHITE BLOOD COUNT 16.2 10^3/ul (4.5-11.0)
[2016-11-15 07:25] LABS: HEMATOCRIT 22.3 % (42.0-52.0)
[2016-11-15] MEDS: Potassium Chloride 20 mEq 100 ML IVPB SCH ×2 (07:29→11:35)
--- NOTE | 2016-11-15 07:53 | PN ---
DATE: 11/15/2016 I examined the patient this morning. He is a 51-year-old black male with past medical history of substance abuse, admitted with pancreatitis issues including multiple pseudocysts and possible colitis of the descending colon plus sepsis. The patient has made considerable progress on the current therapeutic regimen, which includes antibiotics per the ID service and most recently, pseudocyst drainage performed by Dr. Gwyn Street yesterday. The patient symptomatically feels improved. However, the abdomen is still distended. His bowel movements, small volume liquid, but no tremendous degree of diarrhea. PHYSICAL EXAMINATION: VITAL SIGNS: I reviewed this patient's vital signs. HEENT: Significant for a dry mouth. LUNGS: Decreased breath sounds right side, some crackles left base. HEART: Irregular rhythm. ABDOMEN: Mildly distended, decreased tenderness in the left upper quadrant, periumbilical. rover tender over the incision site at the left paraumbilical. Right upper and right lower quadrant noncontributory. I reviewed the respective notes of Dr. Street, Dr. Fox and Dr. Rivers. OVERALL ASSESSMENT: This is a 51-year-old black male with currently pancreatitis, sepsis, still has multiple pseudocysts, still a question of necrotic pancreatitis. The studies on the pseudocyst drainage are still pending. Again, as indicated previously, I suggest transfer to a university facility for further clarification of origin of the pseudocyst, that is main branch versus side branch. Also, if there is a degree of necrotic pancreatitis , this must be addressed more reasonably in a university facility. Again, a [facility] has limited therapeutic options for this type of case. Overall, the patient feels fairly comfortable. I think it might be reasonable to try very small volumes of clear liquids today. The patient will be seen by house staff as well as ID and surgery later on this morning. Tr Posada DO, PhD cc: [id number] TT: 11/15/2016 07:52:23 Confirmation # [id number] Dictation # [id number] MTDD
--- NOTE | 2016-11-15 13:45 | PN ---
DATE: 11/15/2016 The patient is in bed in no acute distress, nontoxic. PHYSICAL EXAMINATION: VITAL SIGNS: Temperature is 98, blood pressure is 150/80, respiratory rate of 20, heart rate of 77. HEENT: Unremarkable. NECK: Supple. LUNGS: Have decreased breath sounds. HEART: Normal S1, S2. ABDOMEN: Soft, nontender. LABORATORY EXAMINATION: Reveals a white count of 16,200, hemoglobin of 8, platelets of 385. Service Operations Manager brandon reveal the BUN of 9, creatinine of 0.5 and amylase and lipase are improving. Microbiology revea ls the cultures are no growth after 24 hours. The fungal cultures are pending. Review of the orders reveals the patient to be Zosyn which requires renewal which we will do so. ASSESSMENT AND PLAN: A 51-year-old male with sepsis secondary to acute descending colon colitis and chronic pancreatitis and pseudocyst and coag-negative staph bacteremia 1 bottle, day #4 of Zosyn, sta tus post CAT scan-guided drainage of an abscess, awaiting for culture results and on Zosyn day #4. T he patient was taken to radiology yesterday and had a CAT scan-guided drainage of the abscess. We wi ll follow closely with you. Sukhdeep Fox MD cc: 350 TT: 11/15/2016 13:44:16 Confirmation # [id number] Dictation # [id number] tn
--- NOTE | 2016-11-15 16:13 | CP.PCM.PN ---
<Arsenio Ye - Last Filed: 11/15/16 16:13> Subjective - Date & Time of Evaluation Date of Evaluation: 11/15/16 Time of Evaluation: 16:11 - Subjective Subjective: SURGERY PROGRESS NOTE FOR DR. GRAY 51M seen and examined at bedside. Patient states pain is well controlled, states he feels like eating. Denies nausea/vomiting. Objective - Vital Signs/Intake and Output Vital Signs (last 24 hours): Temp Pulse Resp BP Pulse Ox 100.9 F H 96 H 20 134/84 92 L 11/15/16 12:00 11/15/16 13:36 11/15/16 12:00 11/15/16 12:00 11/15/16 00:01 Intake and Output: 11/15/16 11/15/16 06:59 18:59 Intake Total 2125 360 Output Total 2200 1075 Balance -75 -715 - Medications Medications: Current Medications Acetaminophen (Tylenol 325mg Tab) 650 mg PO Q4H PRN PRN Reason: Fever >100.4 F Last Admin: 11/13/16 13:34 Dose: 650 mg Folic Acid (Folic Acid) 1 mg IVP DAILY [facility] Last Admin: 11/15/16 10:43 Dose: 1 mg Piperacillin Sod/Tazobactam Sod (Zosyn 3.375 In Ns 100ml) 100 mls @ 200 mls/hr IVPB Q6 [facility] PRN Reason: Protocol Stop: 11/18/16 08:01 Last Admin: 11/15/16 11:35 Dose: 200 mls/hr Multivitamins/Vitamin C 10 ml/Amino Acids/Electrolytes/Dextrose 2,010 mls @ 83 mls/hr IV .Q24H [facility] Stop: 11/15/16 17:59 Last Admin: 11/14/16 18:10 Dose: 83 mls/hr Sodium Chloride (Sodium Chloride 0.9%) 1,000 mls @ 75 mls/hr IV .[id number] [facility] Last Admin: 11/14/16 22:35 Dose: 75 mls/hr Ketorolac Tromethamine (Toradol) 15 mg IM Q8 PRN PRN Reason: Pain, Mild (1-3) Last Admin: 11/15/16 00:27 Dose: 15 mg Ondansetron HCl (Zofran Inj) 4 mg IVP Q4 PRN PRN Reason: Nausea/Vomiting Last Admin: 11/15/16 11:36 Dose: 4 mg Pantoprazole Sodium (Protonix Inj) 40 mg IVP BID [facility] Last Admin: 11/15/16 09:32 Dose: 40 mg Thiamine HCl (Vitamin B1 Tab) 100 mg PO DAILY [facility] Last Admin: 11/15/16 09:33 Dose: 100 mg - Labs Labs: 11/15/16 06:00 11/15/16 06:00 PT 13.6 Seconds (9.9-11.8) H 11/12/16 05:30 INR 1.26 (0.93-1.08) H 11/12/16 05:30 APTT 35.8 Seconds (23.7-30.8) H 11/12/16 05:30 - Constitutional Appears: Non-toxic, No Acute Distress - Head Exam Head Exam: ATRAUMATIC - Respiratory Exam Respiratory Exam: Clear to Ausculation Bilateral, NORMAL BREATHING PATTERN - Cardiovascular Exam Cardiovascular Exam: REGULAR RHYTHM, +S1, +S2 - GI/Abdominal Exam GI & Abdominal Exam: Soft. absent: Distended, Firm, Guarding, Rigid, Tenderness , Rebound Additional comments: drain output- dark red fluid. 50cc in bag - Skin Skin Exam: Dry, Intact, Normal Color, Warm Assessment and Plan - Assessment and Plan (Free Text) Assessment: 51 yo M w/PMHx of EOTH abuse presents for Pancreatitis, chronic residual aortic dissection, thoracic aneurism h/o thoracic dissection repair, colitis. - s/p pseudocyst drainage POD#1, 100cc output initially Plan: - rec Repeat CT 5-7 days from procedure - We will continue to follow patient progress Further recs discuss with Dr. Marina Ye, PGY1 <Finn Gray - Last Filed: 11/17/16 07:49> Subjective - Date & Time of Evaluation Date of Evaluation: 11/15/16 Time of Evaluation: 17:45 Objective - Vital Signs/Intake and Output Vital Signs (last 24 hours): Temp Pulse Resp BP Pulse Ox 99.4 F 86 19 158/96 H 92 L 11/16/16 17:25 11/16/16 12:00 11/16/16 12:00 11/16/16 12:00 11/15/16 00:01 Intake and Output: 11/17/16 11/17/16 06:59 18:59 Intake Total 660 Output Total 1800 Balance -1140 - Medications Medications: Current Medications Acetaminophen (Tylenol 325mg Tab) 650 mg PO Q4H PRN PRN Reason: Fever >100.4 F Last Admin: 11/16/16 16:25 Dose: 650 mg Folic Acid (Folic Acid) 1 mg IVP DAILY [facility] Last Admin: 11/16/16 10:39 Dose: 1 mg Piperacillin Sod/Tazobactam Sod (Zosyn 3.375 In Ns 100ml) 100 mls @ 200 mls/hr IVPB Q6 [facility] PRN Reason: Protocol Stop: 11/18/16 08:01 Last Admin: 11/17/16 05:43 Dose: 200 mls/hr Sodium Chloride (Sodium Chloride 0.9%) 1,000 mls @ 75 mls/hr IV .[id number] [facility] Last Admin: 11/16/16 20:43 Dose: Not Given Ondansetron HCl (Zofran Inj) 4 mg IVP Q4 PRN PRN Reason: Nausea/Vomiting Last Admin: 11/15/16 11:36 Dose: 4 mg Pantoprazole Sodium (Protonix Inj) 40 mg IVP BID [facility] Last Admin: 11/16/16 17:46 Dose: 40 mg Thiamine HCl (Vitamin B1 Tab) 100 mg PO DAILY [facility] Last Admin: 11/16/16 10:02 Dose: 100 mg Tramadol HCl (Ultram) 50 mg PO Q8H PRN PRN Reason: Pain, severe (8-10) Last Admin: 11/17/16 03:11 Dose: 50 mg - Labs Labs: 11/17/16 06:00 11/17/16 06:00 PT 13.6 Seconds (9.9-11.8) H 11/12/16 05:30 INR 1.26 (0.93-1.08) H 11/12/16 05:30 APTT 35.8 Seconds (23.7-30.8) H 11/12/16 05:30 Assessment and Plan - Assessment and Plan (Free Text) Assessment: Patient was seen and examined by me. I agree with assessment and plan as per resident's note.
--- NOTE | 2016-11-15 17:02 | CP.PCM.PN ---
<SilvestreChetna - Last Filed: 11/15/16 17:12> Subjective - Date & Time of Evaluation Date of Evaluation: 11/15/16 Time of Evaluation: 07:30 - Subjective Subjective: Pt seen and evaluated at the bedside. Pt denies N/V, and abdominal pain. Admits to gas. Resolved febrile episode overnight at 100.4 F. Objective - Vital Signs/Intake and Output Vital Signs (last 24 hours): Temp Pulse Resp BP Pulse Ox 100.9 F H 96 H 20 134/84 92 L 11/15/16 12:00 11/15/16 13:36 11/15/16 12:00 11/15/16 12:00 11/15/16 00:01 Intake and Output: 11/15/16 11/15/16 06:59 18:59 Intake Total 2125 360 Output Total 2200 1075 Balance -75 -715 - Medications Medications: Current Medications Acetaminophen (Tylenol 325mg Tab) 650 mg PO Q4H PRN PRN Reason: Fever >100.4 F Last Admin: 11/13/16 13:34 Dose: 650 mg Folic Acid (Folic Acid) 1 mg IVP DAILY [facility] Last Admin: 11/15/16 10:43 Dose: 1 mg Piperacillin Sod/Tazobactam Sod (Zosyn 3.375 In Ns 100ml) 100 mls @ 200 mls/hr IVPB Q6 [facility] PRN Reason: Protocol Stop: 11/18/16 08:01 Last Admin: 11/15/16 11:35 Dose: 200 mls/hr Multivitamins/Vitamin C 10 ml/Amino Acids/Electrolytes/Dextrose 2,010 mls @ 83 mls/hr IV .Q24H [facility] Stop: 11/15/16 17:59 Last Admin: 11/14/16 18:10 Dose: 83 mls/hr Sodium Chloride (Sodium Chloride 0.9%) 1,000 mls @ 75 mls/hr IV .[id number] [facility] Last Admin: 11/14/16 22:35 Dose: 75 mls/hr Ketorolac Tromethamine (Toradol) 15 mg IM Q8 PRN PRN Reason: Pain, Mild (1-3) Last Admin: 11/15/16 00:27 Dose: 15 mg Ondansetron HCl (Zofran Inj) 4 mg IVP Q4 PRN PRN Reason: Nausea/Vomiting Last Admin: 11/15/16 11:36 Dose: 4 mg Pantoprazole Sodium (Protonix Inj) 40 mg IVP BID [facility] Last Admin: 11/15/16 09:32 Dose: 40 mg Thiamine HCl (Vitamin B1 Tab) 100 mg PO DAILY [facility] Last Admin: 11/15/16 09:33 Dose: 100 mg - Labs Labs: 11/15/16 06:00 11/15/16 06:00 PT 13.6 Seconds (9.9-11.8) H 11/12/16 05:30 INR 1.26 (0.93-1.08) H 11/12/16 05:30 APTT 35.8 Seconds (23.7-30.8) H 11/12/16 05:30 - Constitutional Appears: No Acute Distress - Head Exam Head Exam: ATRAUMATIC, NORMOCEPHALIC - Eye Exam Eye Exam: EOMI, Normal appearance Pupil Exam: NORMAL ACCOMODATION, PERRL - Respiratory Exam Respiratory Exam: Clear to Ausculation Bilateral, NORMAL BREATHING PATTERN - Cardiovascular Exam Cardiovascular Exam: +S1, +S2. absent: Bradycardia - GI/Abdominal Exam GI & Abdominal Exam: Distended, Soft. absent: Tenderness Additional comments: L abdominal dressing c/d/i, was site of pancreatic pseudocyst drain. - Extremities Exam Extremities Exam: absent: Pedal Edema, Tenderness - Neurological Exam Neurological Exam: Alert, Awake - Psychiatric Exam Psychiatric exam: Normal Affect, Normal Mood - Skin Skin Exam: Dry, Intact Assessment and Plan - Assessment and Plan (Free Text) Plan: 51 year old male with past medial history of Pancreatitis, ETOH abuse, Thoracic Aneurysm here with Abd pain. Found to have multiple pseudocysts. IR drainage of pseudocyst 10/14/2016 Abd pain with Multiple large Psudocysts Repeat CT - Acute pancreatitis with large pancreatitic pseudocyst, pancreatic ductal dilatation; Pseudocysts in the wall of descending colon and stomach IR drainage consult, pseudocyst drainage 11/14/2016: 105 cc serosanguinous drained, repeat procedure in 5-7 days GI following, appreciate recs As per GI, [facility] to clarify the origination of psuedocysts vs EUS, and for additional procedures Surgery following, appreciate recs NS@ 75ml/hr CLD with PPN Toradol Elevated Amylase/Lipase today but on downtrend 668(yesterday)---> 335 today 2. Hx of HTN Stable at this time Continue to monitor 3. Hx of thoracic/abdominal aneurysm Surgery states no surgical intervention at this time F/u with CardioThoracic surgeon who did the surgery. Cardiology following Echo: EF 61% 4. focal colitis on CT/elevated white count WBC: 16.8 yesterday, 16.2 today ABX per ID Zosyn body fluid cx negative growth at 24 hours blood culture from 11/07/16 shows coagulase negative staph blood culture from 11/10/16 negative growth after 5 days, final Stool culture negative Repeat cxs negative stool c diff studies negative 5. EtOH/Substance abuse Urine tox : Opiate, Methadone + Thiamine Counseled on abstinence Methadone 70mg given today 6. PPx SCDs protonix . <Felisha Copeland - Last Filed: 11/15/16 17:26> Objective - Vital Signs/Intake and Output Vital Signs (last 24 hours): Temp Pulse Resp BP Pulse Ox 100.9 F H 96 H 20 134/84 92 L 11/15/16 12:00 11/15/16 13:36 11/15/16 12:00 11/15/16 12:00 11/15/16 00:01 Intake and Output: 11/15/16 11/15/16 06:59 18:59 Intake Total 2125 360 Output Total 2200 1075 Balance -75 -715 - Medications Medications: Current Medications Acetaminophen (Tylenol 325mg Tab) 650 mg PO Q4H PRN PRN Reason: Fever >100.4 F Last Admin: 11/13/16 13:34 Dose: 650 mg Folic Acid (Folic Acid) 1 mg IVP DAILY [facility] Last Admin: 11/15/16 10:43 Dose: 1 mg Piperacillin Sod/Tazobactam Sod (Zosyn 3.375 In Ns 100ml) 100 mls @ 200 mls/hr IVPB Q6 [facility] PRN Reason: Protocol Stop: 11/18/16 08:01 Last Admin: 11/15/16 17:20 Dose: 200 mls/hr Multivitamins/Vitamin C 10 ml/Amino Acids/Electrolytes/Dextrose 2,010 mls @ 83 mls/hr IV .Q24H [facility] Stop: 11/15/16 17:59 Last Admin: 11/14/16 18:10 Dose: 83 mls/hr Sodium Chloride (Sodium Chloride 0.9%) 1,000 mls @ 75 mls/hr IV .[id number] [facility] Last Admin: 11/15/16 17:20 Dose: 75 mls/hr Ketorolac Tromethamine (Toradol) 15 mg IM Q8 PRN PRN Reason: Pain, Mild (1-3) Last Admin: 11/15/16 00:27 Dose: 15 mg Ondansetron HCl (Zofran Inj) 4 mg IVP Q4 PRN PRN Reason: Nausea/Vomiting Last Admin: 11/15/16 11:36 Dose: 4 mg Pantoprazole Sodium (Protonix Inj) 40 mg IVP BID [facility] Last Admin: 11/15/16 17:01 Dose: 40 mg Thiamine HCl (Vitamin B1 Tab) 100 mg PO DAILY [facility] Last Admin: 11/15/16 09:33 Dose: 100 mg - Labs Labs: 11/15/16 06:00 11/15/16 06:00 PT 13.6 Seconds (9.9-11.8) H 11/12/16 05:30 INR 1.26 (0.93-1.08) H 11/12/16 05:30 APTT 35.8 Seconds (23.7-30.8) H 11/12/16 05:30 Attending/Attestation - Attestation I have personally seen and examined this patient.: Yes I have fully participated in the care of the patient.: Yes I have reviewed all pertinent clinical information, including history, physical exam and plan: Yes Notes (Text): 11/15/16 17:23 51 year old male with past medical history of alcohol abuse, substance abuse and pancreatitis who presented with abdominal pain. CT abd/pelvis showed large pancreatic pseudocyst and colitis. GI is following the patient. He is s/p IR drainage yesterday. He is on clear liquids, iv fluids, and antibiotics. Today he reports his pain is improving. GI had recommended for transfer to [facility]. We did speak with the GI fellow at [facility] who recommended to continue with present management for now. Repeat CT abd/ pelvis in 5-7 days. Will replete and repeat potassium. Felisha Copeland MD Hospitalist.
[2016-11-15] MEDS: Sodium Chloride 0.9% 1,000 ML IV SCH (17:20)
[2016-11-16] MEDS: Piperacillin/Tazobact 3.375 gm 100 ML IVPB SCH ×4 (00:05→17:48)
--- NOTE | 2016-11-16 07:30 | CP.PCM.PN ---
<SilvestreSimaChetna - Last Filed: 11/16/16 15:55> Subjective - Date & Time of Evaluation Date of Evaluation: 11/16/16 Time of Evaluation: 07:25 - Subjective Subjective: Pt seen and evaluated at bedside. Pt denies N/V and abdominal pain except around drain. Pt is walking to restroom and denies fever and chills. 100.9 tmax yesterday. Spoke to GI fellow from [facility] from [place] yesterday PM, who said pt is too stable to be considered for transfer. Objective - Vital Signs/Intake and Output Vital Signs (last 24 hours): Temp Pulse Resp BP Pulse Ox 99.9 F H 85 19 133/89 92 L 11/16/16 05:48 11/16/16 05:48 11/16/16 05:48 11/16/16 05:48 11/15/16 00:01 Intake and Output: 11/16/16 11/16/16 06:59 18:59 Intake Total 3025 Output Total 1300 Balance 1725 - Medications Medications: Current Medications Acetaminophen (Tylenol 325mg Tab) 650 mg PO Q4H PRN PRN Reason: Fever >100.4 F Last Admin: 11/13/16 13:34 Dose: 650 mg Folic Acid (Folic Acid) 1 mg IVP DAILY [facility] Last Admin: 11/15/16 10:43 Dose: 1 mg Piperacillin Sod/Tazobactam Sod (Zosyn 3.375 In Ns 100ml) 100 mls @ 200 mls/hr IVPB Q6 [facility] PRN Reason: Protocol Stop: 11/18/16 08:01 Last Admin: 11/16/16 07:01 Dose: 200 mls/hr Sodium Chloride (Sodium Chloride 0.9%) 1,000 mls @ 75 mls/hr IV .[id number] [facility] Last Admin: 11/15/16 17:20 Dose: 75 mls/hr Ketorolac Tromethamine (Toradol) 15 mg IM Q8 PRN PRN Reason: Pain, Mild (1-3) Last Admin: 11/15/16 21:50 Dose: 15 mg Ondansetron HCl (Zofran Inj) 4 mg IVP Q4 PRN PRN Reason: Nausea/Vomiting Last Admin: 11/15/16 11:36 Dose: 4 mg Pantoprazole Sodium (Protonix Inj) 40 mg IVP BID [facility] Last Admin: 11/15/16 17:01 Dose: 40 mg Thiamine HCl (Vitamin B1 Tab) 100 mg PO DAILY [facility] Last Admin: 11/15/16 09:33 Dose: 100 mg - Labs Labs: 11/15/16 06:00 11/15/16 06:00 PT 13.6 Seconds (9.9-11.8) H 11/12/16 05:30 INR 1.26 (0.93-1.08) H 11/12/16 05:30 APTT 35.8 Seconds (23.7-30.8) H 11/12/16 05:30 - Constitutional Appears: Non-toxic, No Acute Distress - Head Exam Head Exam: ATRAUMATIC, NORMOCEPHALIC - Eye Exam Eye Exam: EOMI, Normal appearance - Respiratory Exam Respiratory Exam: Clear to Ausculation Bilateral, NORMAL BREATHING PATTERN - Cardiovascular Exam Cardiovascular Exam: +S1, +S2. absent: Bradycardia - GI/Abdominal Exam GI & Abdominal Exam: Soft, Tenderness Additional comments: around left sided drain, otherwise site is c/d/i and draining sanguineous fluid. - Exam External exam: absent: Ecchymosis, Erythema - Extremities Exam Extremities Exam: absent: Pedal Edema, Tenderness - Neurological Exam Neurological Exam: Alert, Awake - Skin Skin Exam: Intact, Normal Color Assessment and Plan - Assessment and Plan (Free Text) Plan: 51 year old male with past medial history of Pancreatitis, ETOH abuse, Thoracic Aneurysm here with Abd pain. Found to have multiple pseudocysts. IR drainage of pseudocyst 10/14/2016 Abd pain with Multiple large Psudocysts Repeat CT - Acute pancreatitis with large pancreatitic pseudocyst, pancreatic ductal dilatation; Pseudocysts in the wall of descending colon and stomach IR drainage consult, pseudocyst drainage 11/14/2016: 105 cc serosanguinous drained, repeat procedure in 5-7 days GI following, appreciate recs Surgery following, appreciate recs NS@ 75ml/hr Liquid diet 2. Hx of HTN Stable at this time Continue to monitor 3. Hx of thoracic/abdominal aneurysm Surgery states no surgical intervention at this time F/u with CardioThoracic surgeon who did the surgery. Cardiology following Echo: EF 61% 4. focal colitis on CT/elevated white count WBC: increased to 18 today, 100.9 F tmax measured yesterday ABX per ID Zosyn body fluid cx negative growth at 24 hours blood culture from 11/07/16 shows coagulase negative staph blood culture from 11/10/16 negative growth after 5 days, final Stool culture negative Repeat cxs negative stool c diff studies negative Procalcitonin reordered today. as well as knox cultures ordered 5. EtOH/Substance abuse Urine tox : Opiate, Methadone + Thiamine Counseled on abstinence Methadone 80mg given today 6. PPx SCDs protonix <Felisha Copeland - Last Filed: 11/16/16 16:24> Objective - Vital Signs/Intake and Output Vital Signs (last 24 hours): Temp Pulse Resp BP Pulse Ox 98.8 F 86 19 158/96 H 92 L 11/16/16 12:00 11/16/16 12:00 11/16/16 12:00 11/16/16 12:00 11/15/16 00:01 Intake and Output: 11/16/16 11/16/16 06:59 18:59 Intake Total 3025 720 Output Total 1300 1000 Balance 1725 -280 - Medications Medications: Current Medications Acetaminophen (Tylenol 325mg Tab) 650 mg PO Q4H PRN PRN Reason: Fever >100.4 F Last Admin: 11/13/16 13:34 Dose: 650 mg Folic Acid (Folic Acid) 1 mg IVP DAILY [facility] Last Admin: 11/16/16 10:39 Dose: 1 mg Piperacillin Sod/Tazobactam Sod (Zosyn 3.375 In Ns 100ml) 100 mls @ 200 mls/hr IVPB Q6 [facility] PRN Reason: Protocol Stop: 11/18/16 08:01 Last Admin: 11/16/16 12:55 Dose: 200 mls/hr Sodium Chloride (Sodium Chloride 0.9%) 1,000 mls @ 75 mls/hr IV .[id number] [facility] Last Admin: 11/16/16 14:49 Dose: 75 mls/hr Ondansetron HCl (Zofran Inj) 4 mg IVP Q4 PRN PRN Reason: Nausea/Vomiting Last Admin: 11/15/16 11:36 Dose: 4 mg Pantoprazole Sodium (Protonix Inj) 40 mg IVP BID [facility] Last Admin: 11/16/16 10:02 Dose: 40 mg Thiamine HCl (Vitamin B1 Tab) 100 mg PO DAILY [facility] Last Admin: 11/16/16 10:02 Dose: 100 mg - Labs Labs: 11/16/16 06:30 11/16/16 06:30 PT 13.6 Seconds (9.9-11.8) H 11/12/16 05:30 INR 1.26 (0.93-1.08) H 11/12/16 05:30 APTT 35.8 Seconds (23.7-30.8) H 11/12/16 05:30 Attending/Attestation - Attestation I have personally seen and examined this patient.: Yes I have fully participated in the care of the patient.: Yes I have reviewed all pertinent clinical information, including history, physical exam and plan: Yes Notes (Text): 11/16/16 16:21 51 year old male with past medical history of alcohol abuse, substance abuse and pancreatitis who presented with abdominal pain. CT abd/pelvis showed large pancreatic pseudocyst and colitis. He is on iv antibiotics and s/p IR drainage. Fever trend is coming down although he has persistent leukocytosis. GI and ID are following the patient. He reports pain has improved and his diet is being advanced. Case was discussed with GI fellow at [facility] who recommended to continue with present management and repeat CT abd/pelvis for follow up early next week. Felisha Copeland MD Hospitalist.
[2016-11-16 07:47] LABS: ADD MANUAL DIFF? NO
[2016-11-16 07:55] LABS: BASO # 0.04 K/mm3 (0.0-2.0); BASO % 0.2 % (0.0-3.0); EOS # 0.3 (0.0-0.7); EOS % 1.4 % (1.5-5.0); GRAN # 14.94 (1.4-6.5); GRAN % 82.3 % (50.0-68.0); LYMPH # 1.8 (1.2-3.4); LYMPH % 9.8 % (22.0-35.0); MEAN CELL VOLUME 73.6 fL (80.0-105.0); MEAN CORPUSCULAR HEMOGLOBIN 26.4 pg (25.0-35.0); MEAN CORPUSCULAR HGB CONC 35.9 g/dl (31.0-37.0); MEAN PLATELET VOLUME 9.9 fl (7.0-11.0); MONO # 1.1 (0.1-0.6); MONO % 6.3 % (1.0-6.0); PLATELET COUNT 368 10^3/uL (120.0-450.0); RED CELL DISTRIBUTION WIDTH 15.4 % (11.5-14.5); WHITE BLOOD COUNT 18.1 10^3/ul (4.5-11.0)
[2016-11-16 08:06] LABS: HEMATOCRIT 23.4 % (42.0-52.0)
[2016-11-16 08:07] LABS: ALB/GLOB RATIO 0.7 (1.1-1.8); ALKALINE PHOSPHATASE 242 U/L (38-133); ALT/SGPT 31 U/L (7-56); AST/SGOT 50 U/L (15-59); BILIRUBIN,TOTAL 0.3 mg/dL (0.2-1.3); BLOOD UREA NITROGEN 5 mg/dL (7-21); CALCIUM 8.3 mg/dL (8.4-10.5); CARBON DIOXIDE 30 mmol/L (21-33); CHLORIDE 102 mmol/L (95-110); GFR AFRICAN-AMERICAN > 60; GLUCOSE,RANDOM 52 mg/dL (70-110); POTASSIUM 4.1 mmol/L (3.6-5.0); SODIUM 138 mmol/L (132-148); TOTAL PROTEIN 5.2 g/dL (5.8-8.3)
--- NOTE | 2016-11-16 10:49 | PN ---
DATE: 11/16/2016 The patient is in bed in no acute distress, nontoxic. PHYSICAL EXAMINATION: VITAL SIGNS: Temperature is 98, blood pressure is 130/80, respiratory rate of 19, heart rate of 85. HEENT: Unremarkable. NECK: Supple. LUNGS: Decreased breath sounds. HEART: Normal S1, S2. ABDOMEN: Soft, nontender. LABORATORY DATA: Reveals a white count of 18,100. Review of the medications reveals the patient to be on Zosyn. Review of the microbiology reveals the patient's cultures from the aspirate no growth after 24 hours, and the bacterial cultures and Gram stain, no organism was seen. Fungal cultures reveal no fungal e lements are seen from the pancreatic pseudocyst. note from this morning is noted. ASSESSMENT AND PLAN: This is a 51-year-old male with sepsis secondary to colitis and chronic pancrea titis and a pseudocyst, coag negative staph bacteremia 1 bottle, status post CAT scan-guided drainage of a pseudocyst that has the drainage in, on Zosyn day #5. Cultures from the drainage have no growt h. Leukocytosis has increased to 18,000. The patient did have a temperature of 100.9 last night. W e will repeat knox cultures and chest x-ray and stool for Clostridium difficile if there is diarrhea. Continue the Zosyn for now. Will also order a procalcitonin. We will make further recommendations. Sukhdeep Fox MD cc: [id number] TT: 11/16/2016 10:48:50 Confirmation # [id number] Dictation # [id number] tessa
--- NOTE | 2016-11-16 12:34 | CP.PCM.PN ---
<Arsenio Ye - Last Filed: 11/16/16 12:29> Subjective - Date & Time of Evaluation Date of Evaluation: 11/16/16 Time of Evaluation: 12:29 - Subjective Subjective: SURGERY NOTE FOR DR. GRAY 51M seen and examined at bedside. Patient is resting comfortably, denies pain, nausea, vomiting. He is tolerating diet. Objective - Vital Signs/Intake and Output Vital Signs (last 24 hours): Temp Pulse Resp BP Pulse Ox 99.9 F H 85 19 133/89 92 L 11/16/16 05:48 11/16/16 05:48 11/16/16 05:48 11/16/16 05:48 11/15/16 00:01 Intake and Output: 11/16/16 11/16/16 06:59 18:59 Intake Total 3025 Output Total 1300 Balance 1725 - Medications Medications: Current Medications Acetaminophen (Tylenol 325mg Tab) 650 mg PO Q4H PRN PRN Reason: Fever >100.4 F Last Admin: 11/13/16 13:34 Dose: 650 mg Folic Acid (Folic Acid) 1 mg IVP DAILY [facility] Last Admin: 11/16/16 10:39 Dose: 1 mg Piperacillin Sod/Tazobactam Sod (Zosyn 3.375 In Ns 100ml) 100 mls @ 200 mls/hr IVPB Q6 [facility] PRN Reason: Protocol Stop: 11/18/16 08:01 Last Admin: 11/16/16 07:01 Dose: 200 mls/hr Sodium Chloride (Sodium Chloride 0.9%) 1,000 mls @ 75 mls/hr IV .[id number] [facility] Last Admin: 11/15/16 17:20 Dose: 75 mls/hr Ketorolac Tromethamine (Toradol) 15 mg IM Q8 PRN PRN Reason: Pain, Mild (1-3) Last Admin: 11/16/16 07:59 Dose: 15 mg Ondansetron HCl (Zofran Inj) 4 mg IVP Q4 PRN PRN Reason: Nausea/Vomiting Last Admin: 11/15/16 11:36 Dose: 4 mg Pantoprazole Sodium (Protonix Inj) 40 mg IVP BID [facility] Last Admin: 11/16/16 10:02 Dose: 40 mg Thiamine HCl (Vitamin B1 Tab) 100 mg PO DAILY [facility] Last Admin: 11/16/16 10:02 Dose: 100 mg - Labs Labs: 11/16/16 06:30 11/16/16 06:30 PT 13.6 Seconds (9.9-11.8) H 11/12/16 05:30 INR 1.26 (0.93-1.08) H 11/12/16 05:30 APTT 35.8 Seconds (23.7-30.8) H 11/12/16 05:30 - Constitutional Appears: Non-toxic, No Acute Distress - Head Exam Head Exam: ATRAUMATIC - Respiratory Exam Respiratory Exam: Clear to Ausculation Bilateral, NORMAL BREATHING PATTERN - Cardiovascular Exam Cardiovascular Exam: REGULAR RHYTHM, +S1, +S2 - GI/Abdominal Exam GI & Abdominal Exam: Soft. absent: Distended, Firm, Guarding, Rigid, Tenderness , Rebound Additional comments: IR drain has dark sanguinous output. - Neurological Exam Neurological Exam: Alert, Awake - Skin Skin Exam: Dry, Intact, Normal Color, Warm Assessment and Plan - Assessment and Plan (Free Text) Assessment: 51 yo M w/PMHx of EOTH abuse presents for Pancreatitis, chronic residual aortic dissection, thoracic aneurism h/o thoracic dissection repair, colitis. - s/p pseudocyst drainage POD#2 Plan: - We will continue to follow patient progress - Etiology of pseudocyst to be determined, recommend EUS Discussed with Dr. Marina Ye, PGY1 <Finn Gray - Last Filed: 11/17/16 07:54> Subjective - Date & Time of Evaluation Date of Evaluation: 11/16/16 Time of Evaluation: 16:55 Objective - Vital Signs/Intake and Output Vital Signs (last 24 hours): Temp Pulse Resp BP Pulse Ox 99.4 F 86 19 158/96 H 92 L 11/16/16 17:25 11/16/16 12:00 11/16/16 12:00 11/16/16 12:00 11/15/16 00:01 Intake and Output: 11/17/16 11/17/16 06:59 18:59 Intake Total 660 Output Total 1800 Balance -1140 - Medications Medications: Current Medications Acetaminophen (Tylenol 325mg Tab) 650 mg PO Q4H PRN PRN Reason: Fever >100.4 F Last Admin: 11/16/16 16:25 Dose: 650 mg Folic Acid (Folic Acid) 1 mg IVP DAILY [facility] Last Admin: 11/16/16 10:39 Dose: 1 mg Piperacillin Sod/Tazobactam Sod (Zosyn 3.375 In Ns 100ml) 100 mls @ 200 mls/hr IVPB Q6 [facility] PRN Reason: Protocol Stop: 11/18/16 08:01 Last Admin: 11/17/16 05:43 Dose: 200 mls/hr Sodium Chloride (Sodium Chloride 0.9%) 1,000 mls @ 75 mls/hr IV .[id number] [facility] Last Admin: 11/16/16 20:43 Dose: Not Given Ondansetron HCl (Zofran Inj) 4 mg IVP Q4 PRN PRN Reason: Nausea/Vomiting Last Admin: 11/15/16 11:36 Dose: 4 mg Pantoprazole Sodium (Protonix Inj) 40 mg IVP BID [facility] Last Admin: 11/16/16 17:46 Dose: 40 mg Thiamine HCl (Vitamin B1 Tab) 100 mg PO DAILY [facility] Last Admin: 11/16/16 10:02 Dose: 100 mg Tramadol HCl (Ultram) 50 mg PO Q8H PRN PRN Reason: Pain, severe (8-10) Last Admin: 11/17/16 03:11 Dose: 50 mg - Labs Labs: 11/17/16 06:00 11/17/16 06:00 PT 13.6 Seconds (9.9-11.8) H 11/12/16 05:30 INR 1.26 (0.93-1.08) H 11/12/16 05:30 APTT 35.8 Seconds (23.7-30.8) H 11/12/16 05:30 Assessment and Plan - Assessment and Plan (Free Text) Assessment: Patient was seen and examined by me. I agree with assessment and plan as per resident's note.Continue close monitoring of the output from the pancreatic cyst. Continue antibiotics.
--- NOTE | 2016-11-16 12:49 | RAD ---
HISTORY: fever COMPARISON: 11/13/2016 TECHNIQUE: Chest PA and lateral FINDINGS: LUNGS: No active pulmonary disease. PLEURA: No significant pleural effusion identified. No pneumothorax apparent. CARDIOVASCULAR: Normal. OSSEOUS STRUCTURES: Sternal wires VISUALIZED UPPER ABDOMEN: Normal. OTHER FINDINGS: None. IMPRESSION: No active disease.
[2016-11-16 14:31] LABS: URINE BILIRUBIN NEGATIVE (NEGATIVE); URINE BLOOD NEGATIVE (NEGATIVE); URINE GLUCOSE (UA) NEGATIVE (NEGATIVE); URINE KETONE NEGATIVE (NEGATIVE); URINE LEUKOCYTE ESTERASE NEGATIVE Leu/uL (NEGATIVE); URINE PROTEIN NEGATIVE mg/dL (<30 mg/dL); URINE UROBILINOGEN 0.2 E.U./dL (<1 E.U./dL)
[2016-11-16] MEDS: Sodium Chloride 0.9% 1,000 ML IV SCH ×2 (14:49→20:43)
[2016-11-16 14:54] LABS: URINE APPEARANCE CLEAR (CLEAR); URINE COLOR STRAW (YELLOW)
[2016-11-17] MEDS: Piperacillin/Tazobact 3.375 gm 100 ML IVPB SCH ×5 (00:13→23:42)
[2016-11-17 06:56] LABS: ADD MANUAL DIFF? NO
[2016-11-17 06:59] LABS: BASO # 0.08 K/mm3 (0.0-2.0); BASO % 0.5 % (0.0-3.0); EOS # 0.2 (0.0-0.7); EOS % 1.5 % (1.5-5.0); LYMPH # 1.4 (1.2-3.4); LYMPH % 8.7 % (22.0-35.0); MEAN CELL VOLUME 73.7 fL (80.0-105.0); MEAN CORPUSCULAR HEMOGLOBIN 26.3 pg (25.0-35.0); MEAN CORPUSCULAR HGB CONC 35.6 g/dl (31.0-37.0); MEAN PLATELET VOLUME 9.8 fl (7.0-11.0); MONO % 6.3 % (1.0-6.0); PLATELET COUNT 393 10^3/uL (120.0-450.0); RED CELL DISTRIBUTION WIDTH 15.6 % (11.5-14.5); WHITE BLOOD COUNT 15.8 10^3/ul (4.5-11.0)
[2016-11-17 07:06] LABS: HEMATOCRIT 23.3 % (42.0-52.0)
[2016-11-17 07:28] LABS: ALB/GLOB RATIO 0.7 (1.1-1.8); ALKALINE PHOSPHATASE 209 U/L (38-133); ALT/SGPT 41 U/L (7-56); AST/SGOT 44 U/L (15-59); BILIRUBIN,TOTAL 0.4 mg/dL (0.2-1.3); BLOOD UREA NITROGEN 2 mg/dL (7-21); CARBON DIOXIDE 29 mmol/L (21-33); CHLORIDE 103 mmol/L (98-107); GFR AFRICAN-AMERICAN > 60; GLUCOSE,RANDOM 66 mg/dL (70-110); POTASSIUM 3.7 mmol/L (3.6-5.0); SODIUM 138 mmol/L (132-148); TOTAL PROTEIN 5.7 g/dL (5.8-8.3)
--- NOTE | 2016-11-17 08:00 | PN ---
DATE: 11/17/2016 I examined the patient this morning. He is a 51-year-old black male admitted with pancreatitis, multiple pseudocyst formation, descending colon colitis. The patient has made progress on the current therapeutic regimen, but still exhibiting discomfort in the area of the pseudocyst drainage. The abdomen is currently decompressed relative to day of admission. Nausea, vomiting is less. However, he is still having diarrhea, probably in face of antibiotic therapy. PHYSICAL EXAMINATION: VITAL SIGNS: I reviewed this patient's vital signs. HEENT: Significant for a dry mouth. LUNGS: Decreased breath sounds bilaterally at the bases, apical clear. HEART: Irregular rhythm. ABDOMEN: Soft on the right upper and right lower quadrant, minimal tenderness in the right paraumbilical. Palpation of the left paraumbilical in the area of the therapeutic tap is ammonia box tender to palpation. Still mildly tender in the left upper quadrant and epigastric area. Apparently, the studies on the pseudocyst drainage revealed no growth after 2 days, if I am reading this correctly. I reviewed the notes of the respective consultants including surgery, medicine as well as Dr. Fox. OVERALL ASSESSMENT: This is a 51-year-old black male admitted with severe pancreatitis with multiple pseudocyst formation. Based on the current imaging studies, there is a question whether there is some degree of residual necrotic pancreatitis. However, he still has substantial pseudocyst formation. Again, the largest one was drained. As per my prior progress notes and consultation, suggested transfer to [facility] or a similar facility to facilitate evaluation of pseudocysts by endoscopic ultrasound studies. Again, prognostic implications related to the location of the pseudocysts relative to the main duct. Again, in this particular case, due to the number of pseudocysts and the severity of pancreatitis, one really has to rule out whether there is some occult malignancy somewhere in the mid to distal pancreas. I think this would better be accomplished, given the complexity of this case, [facility]. The patient seems overall fairly comfortable with the current therapeutic regimen. Therefore, I will sign off today. The patient will be followed up by the respective consultants including surgery, medicine and infectious disease. Tr Posada DO, PhD cc: [id number] TT: 11/17/2016 07:59:58 Confirmation # [id number] Dictation # [id number] en ALEXI
[2016-11-17] MEDS: Sodium Chloride 0.9% 1,000 ML IV SCH (09:53)
--- NOTE | 2016-11-17 14:11 | CP.PCM.PN ---
<SilvestreChetna - Last Filed: 11/17/16 17:26> Subjective - Date & Time of Evaluation Date of Evaluation: 11/17/16 Time of Evaluation: 07:15 - Subjective Subjective: Pt seen and evaluated at the bedside. Pt is eating liquids this AM, and denies nausea, vomiting, abdominal pain, chest pain, changes with urination, and denies fever. Reports BM overnight. Afebrile overnight. Objective - Vital Signs/Intake and Output Vital Signs (last 24 hours): Temp Pulse Resp BP Pulse Ox 99.3 F 81 20 150/84 94 L 11/17/16 07:51 11/17/16 07:51 11/17/16 07:51 11/17/16 07:51 11/17/16 07:51 Intake and Output: 11/17/16 11/17/16 06:59 18:59 Intake Total 660 Output Total 1800 Balance -1140 - Medications Medications: Current Medications Acetaminophen (Tylenol 325mg Tab) 650 mg PO Q4H PRN PRN Reason: Fever >100.4 F Last Admin: 11/16/16 16:25 Dose: 650 mg Folic Acid (Folic Acid) 1 mg IVP DAILY [facility] Last Admin: 11/17/16 09:52 Dose: Not Given Piperacillin Sod/Tazobactam Sod (Zosyn 3.375 In Ns 100ml) 100 mls @ 200 mls/hr IVPB Q6 [facility] PRN Reason: Protocol Stop: 11/18/16 08:01 Last Admin: 11/17/16 11:18 Dose: 200 mls/hr Sodium Chloride (Sodium Chloride 0.9%) 1,000 mls @ 75 mls/hr IV .[id number] [facility] Last Admin: 11/17/16 09:53 Dose: 75 mls/hr Iron Sucrose (Venofer) 200 mg IVP Q72 [facility] Stop: 11/30/16 10:01 Ondansetron HCl (Zofran Inj) 4 mg IVP Q4 PRN PRN Reason: Nausea/Vomiting Last Admin: 11/17/16 11:18 Dose: 4 mg Pantoprazole Sodium (Protonix Inj) 40 mg IVP BID [facility] Last Admin: 11/17/16 09:51 Dose: 40 mg Thiamine HCl (Vitamin B1 Tab) 100 mg PO DAILY [facility] Last Admin: 11/17/16 09:53 Dose: 100 mg Tramadol HCl (Ultram) 50 mg PO Q8H PRN PRN Reason: Pain, severe (8-10) Last Admin: 11/17/16 03:11 Dose: 50 mg - Labs Labs: 11/17/16 06:00 11/17/16 06:00 PT 13.6 Seconds (9.9-11.8) H 11/12/16 05:30 INR 1.26 (0.93-1.08) H 11/12/16 05:30 APTT 35.8 Seconds (23.7-30.8) H 11/12/16 05:30 - Constitutional Appears: Non-toxic, No Acute Distress - Head Exam Head Exam: ATRAUMATIC, NORMOCEPHALIC - Eye Exam Eye Exam: EOMI, Normal appearance Pupil Exam: NORMAL ACCOMODATION, PERRL - Respiratory Exam Respiratory Exam: Clear to Ausculation Bilateral, NORMAL BREATHING PATTERN - Cardiovascular Exam Cardiovascular Exam: REGULAR RHYTHM, +S1, +S2 - GI/Abdominal Exam GI & Abdominal Exam: Soft Additional comments: tenderness around L drain incision, drain draining sanguineous fluid - Exam External exam: absent: Ecchymosis, Erythema - Extremities Exam Extremities Exam: absent: Pedal Edema, Tenderness - Neurological Exam Neurological Exam: Alert, Awake - Psychiatric Exam Psychiatric exam: Normal Affect, Normal Mood - Skin Skin Exam: Normal Color, Warm Assessment and Plan - Assessment and Plan (Free Text) Plan: 51 year old male with past medial history of Pancreatitis, ETOH abuse, Thoracic Aneurysm here with Abd pain. Found to have multiple pseudocysts. IR drainage of pseudocyst 10/14/2016 Abd pain with Multiple large Psudocysts Repeat CT - Acute pancreatitis with large pancreatitic pseudocyst, pancreatic ductal dilatation; Pseudocysts in the wall of descending colon and stomach IR drainage consult, pseudocyst drainage 11/14/2016: 105 cc serosanguinous drained, repeat procedure in 5-7 days GI signed off, appreciate recs, recommended further studies at a [facility] for occult malignancy r/o Surgery following, appreciate recs, recommended EUS will order ABD CT with contrast for monday NS@ 75ml/hr Liquid diet, ADAT tomorrow planned 2. Hx of HTN Stable at this time Continue to monitor 3. Hx of thoracic/abdominal aneurysm Surgery states no surgical intervention at this time F/u with CardioThoracic surgeon who did the surgery. Cardiology following Echo: EF 61% 4. focal colitis on CT/elevated white count WBC: 15 today, 100.2 F tmax measured yesterday ABX per ID Zosyn body fluid cx negative growth, final blood culture from 11/07/16 shows coagulase negative staph, repeat Bcx negative at 24hr blood culture from 11/10/16 negative growth after 5 days, final Stool culture negative Repeat cxs negative stool c diff studies negative Procalcitonin reordered, 0.65. as well as knox cultures ordered 5. EtOH/Substance abuse Urine tox : Opiate, Methadone + Thiamine Counseled on abstinence Methadone 80mg given today 6. Iron deficiency anemia serum Fe les than 10 and MCV in 70s Iron sucrose ordered 7. PPx SCDs protonix <Felisha Copeland - Last Filed: 11/17/16 17:35> Objective - Vital Signs/Intake and Output Vital Signs (last 24 hours): Temp Pulse Resp BP Pulse Ox 99.5 F 93 H 20 131/88 93 L 11/17/16 16:00 11/17/16 16:00 11/17/16 16:00 11/17/16 16:00 11/17/16 16:00 Intake and Output: 11/17/16 11/17/16 06:59 18:59 Intake Total 660 540 Output Total 1800 900 Balance -1140 -360 - Medications Medications: Current Medications Acetaminophen (Tylenol 325mg Tab) 650 mg PO Q4H PRN PRN Reason: Fever >100.4 F Last Admin: 11/16/16 16:25 Dose: 650 mg Folic Acid (Folic Acid) 1 mg IVP DAILY [facility] Last Admin: 11/17/16 09:52 Dose: Not Given Piperacillin Sod/Tazobactam Sod (Zosyn 3.375 In Ns 100ml) 100 mls @ 200 mls/hr IVPB Q6 [facility] PRN Reason: Protocol Stop: 11/18/16 08:01 Last Admin: 11/17/16 11:18 Dose: 200 mls/hr Sodium Chloride (Sodium Chloride 0.9%) 1,000 mls @ 75 mls/hr IV .[id number] [facility] Last Admin: 11/17/16 09:53 Dose: 75 mls/hr Iron Sucrose (Venofer) 200 mg IVP Q72 [facility] Stop: 11/30/16 10:01 Ondansetron HCl (Zofran Inj) 4 mg IVP Q4 PRN PRN Reason: Nausea/Vomiting Last Admin: 11/17/16 11:18 Dose: 4 mg Pantoprazole Sodium (Protonix Inj) 40 mg IVP BID [facility] Last Admin: 11/17/16 09:51 Dose: 40 mg Thiamine HCl (Vitamin B1 Tab) 100 mg PO DAILY [facility] Last Admin: 11/17/16 09:53 Dose: 100 mg Tramadol HCl (Ultram) 50 mg PO Q8H PRN PRN Reason: Pain, severe (8-10) Last Admin: 11/17/16 03:11 Dose: 50 mg - Labs Labs: 11/17/16 06:00 11/17/16 06:00 PT 13.6 Seconds (9.9-11.8) H 11/12/16 05:30 INR 1.26 (0.93-1.08) H 11/12/16 05:30 APTT 35.8 Seconds (23.7-30.8) H 11/12/16 05:30 Attending/Attestation - Attestation I have personally seen and examined this patient.: Yes I have fully participated in the care of the patient.: Yes I have reviewed all pertinent clinical information, including history, physical exam and plan: Yes Notes (Text): 11/17/16 17:34 51 year old male with past medical history of alcohol abuse, substance abuse and pancreatitis who presented with abdominal pain. He was found to have large pancreatic pseudocyst and colitis on CT abd/pelvis. He is on iv antibiotics. He is s/p IR drainage earlier this week. Plan is to repeat CT abd/pelvis early next week. Fever trend is coming down although he has persistent leukocytosis. His pain has improved and his diet will be advanced as tolerated. He is started on iv iron for iron deficiency anemia. Felisha Copeland MD Hospitalist.
--- NOTE | 2016-11-17 17:47 | PN ---
DATE: 11/17/2016 The patient is in bed in no acute distress. PHYSICAL EXAMINATION: VITAL SIGNS: Temperature is 99, blood pressure is 130/80, respiratory rate of 20. HEENT: Unremarkable. NECK: Supple. LUNGS: Decreased breath sounds. HEART: Normal S1, S2. ABDOMEN: Soft, nontender. LABORATORY EXAMINATION: Reveals a white count of 15,800. Hemoglobin of 8, BUN of 2, creatinine of 0 .6. Microbiology is noted. Review of the orders reveals the patient to be on Zosyn. The patient had a chest x-ray yesterday. ASSESSMENT AND PLAN: A 51-year-old male with sepsis secondary to colitis and chronic pancreatitis an d pseudocyst and coag-negative staph bacteremia 1 bottle, status post CAT scan-guided drainage of the pseudocyst ____ drainage. Currently on Zosyn day #6. We will check on the repeat knox cultures. Th e procalcitonin is 0.65. Urine culture from yesterday is negative. Blood cultures from yesterday at 24 hours are negative at this time. Stool for C. diff antigen and toxin are both negative. White c ount is down to 15,800. We will follow closely with you. Dr. Salas ____ progress note is reviewed . Sukhdeep Fox MD cc: [id number] TT: 11/17/2016 17:47:43 Confirmation # [id number] Dictation # [id number] sn
[2016-11-18] MEDS: Piperacillin/Tazobact 3.375 gm 100 ML IVPB SCH ×4 (05:20→23:15)
[2016-11-18] MEDS: Sodium Chloride 0.9% 1,000 ML IV SCH (06:32)
[2016-11-18 06:36] LABS: ADD MANUAL DIFF? NO
[2016-11-18 06:39] LABS: BASO # 0.06 K/mm3 (0.0-2.0); BASO % 0.5 % (0.0-3.0); EOS # 0.2 (0.0-0.7); EOS % 1.7 % (1.5-5.0); GRAN # 9.39 (1.4-6.5); LYMPH # 1.6 (1.2-3.4); LYMPH % 13.3 % (22.0-35.0); MEAN CELL VOLUME 73.8 fL (80.0-105.0); MEAN CORPUSCULAR HEMOGLOBIN 26.5 pg (25.0-35.0); MEAN PLATELET VOLUME 9.3 fl (7.0-11.0); MONO # 0.9 (0.1-0.6); MONO % 7.5 % (1.0-6.0); PLATELET COUNT 344 10^3/uL (120.0-450.0); RED CELL DISTRIBUTION WIDTH 15.8 % (11.5-14.5); WHITE BLOOD COUNT 12.2 10^3/ul (4.5-11.0)
[2016-11-18 06:47] LABS: ALB/GLOB RATIO 0.7 (1.1-1.8); ALKALINE PHOSPHATASE 187 U/L (38-133); ALT/SGPT 41 U/L (7-56); AST/SGOT 33 U/L (15-59); BILIRUBIN,TOTAL 0.4 mg/dL (0.2-1.3); CALCIUM 8.3 mg/dL (8.4-10.5); CARBON DIOXIDE 27 mmol/L (21-33); CHLORIDE 105 mmol/L (98-107); GFR AFRICAN-AMERICAN > 60; GLUCOSE,RANDOM 66 mg/dL (70-110); POTASSIUM 3.7 mmol/L (3.6-5.0); SODIUM 137 mmol/L (132-148)
[2016-11-18 06:49] LABS: BLOOD UREA NITROGEN < 2 mg/dL (7-21)
[2016-11-18 06:50] LABS: HEMATOCRIT 22.8 % (42.0-52.0)
[2016-11-18] MEDS ORDERED: Iron Sucrose 100 mg/5 ml Inj IVP SCH (10:00)
--- NOTE | 2016-11-18 11:34 | PN ---
DATE: 11/18/2016 The patient is in bed in room 574, bed 2. It appears that he is comfortable. He states he is doing much better. He is awake and alert. PHYSICAL EXAMINATION: VITAL SIGNS: Temperature is 98, blood pressure is 131/80, respiratory rate of 20, heart rate of 80-9 3. The patient is saturating at 93% oxygenation. HEENT: Unremarkable. NECK: Supple. LUNGS: Have decreased breath sounds. HEART: Normal S1, S2. ABDOMEN: Soft, nontender. LABORATORY EXAMINATION: Reveals the white count this morning is down now to 12,200, greatly improved with hemoglobin of 8, platelets of 344. Chemistries reveal a BUN of 9, creatinine of less than 0.2. Of note is the patient's procalcitonin is 0.65. Urinalysis is noted. And unremarkable and stool f or occult blood is negative. Toxicology is positive for opiate screen, methadone screen and the ken ent's HIV is negative. Microbiology reveals the urine culture is negative. The blood cultures have no growth. Stool for C. diff antigen and toxin were both negative. The patient's CAT scan directed aspirate of the pseudocyst cultures are also negative and no organism seen on gram stain. Dr. Albaro Rivers's note is reviewed from yesterday. Dr. Tr Posada's note is reviewed. He recommended [facility] sfer to [facility] or a similar facility to facilitate evaluation of the pseudocyst by endoscopic ultrasou nd studies. Review of the orders reveals the patient is on methadone and his Zosyn was discontinued. ASSESSMENT AND PLAN: A 51-year-old male with history of alcohol abuse admitted with sepsis secondary to acute pancreatitis and colitis and complicated with a pseudocyst and had 1 blood culture positive for Staph coag negative and had CAT scan guided drainage of the pseudocyst. All cultures are negati ve. The patient is on Zosyn. We will restart Zosyn pending final culture results and WBC count. Sukhdeep Fox MD cc: [id number] TT: 11/18/2016 11:34:03 Confirmation # [id number] Dictation # [id number] tn
--- NOTE | 2016-11-18 13:07 | CP.PCM.PN ---
<SilvestreChetna - Last Filed: 11/18/16 13:44> Subjective - Date & Time of Evaluation Date of Evaluation: 11/18/16 Time of Evaluation: 07:25 - Subjective Subjective: Pt seen and evaluated at bedside. Pt denies SOB, chest pain,abdominal pain, N/ V. Reported BM this AM. Afebrile. Objective - Vital Signs/Intake and Output Vital Signs (last 24 hours): Temp Pulse Resp BP Pulse Ox 98.8 F 78 18 141/83 94 L 11/18/16 08:00 11/18/16 08:00 11/18/16 08:00 11/18/16 08:00 11/18/16 08:00 Intake and Output: 11/18/16 11/18/16 06:59 18:59 Intake Total 3160 Output Total 3350 Balance -190 - Medications Medications: Current Medications Acetaminophen (Tylenol 325mg Tab) 650 mg PO Q4H PRN PRN Reason: Fever >100.4 F Last Admin: 11/16/16 16:25 Dose: 650 mg Folic Acid (Folic Acid) 1 mg IVP DAILY [facility] Last Admin: 11/18/16 09:21 Dose: Not Given Sodium Chloride (Sodium Chloride 0.9%) 1,000 mls @ 75 mls/hr IV .[id number] [facility] Last Admin: 11/18/16 06:32 Dose: 75 mls/hr Iron Sucrose 200 mg/ Sodium (Chloride) 110 mls @ 110 mls/hr IVPB Q48H [facility] Last Admin: 11/18/16 10:15 Dose: 110 mls/hr Piperacillin Sod/Tazobactam Sod (Zosyn 3.375 In Ns 100ml) 100 mls @ 200 mls/hr IVPB Q6 [facility] PRN Reason: Protocol Stop: 11/25/16 12:01 Last Admin: 11/18/16 11:24 Dose: 200 mls/hr Iron Sucrose (Venofer) 200 mg IVP Q72 [facility] Stop: 11/30/16 10:01 Last Admin: 11/18/16 10:21 Dose: Not Given Ondansetron HCl (Zofran Inj) 4 mg IVP Q4 PRN PRN Reason: Nausea/Vomiting Last Admin: 11/17/16 11:18 Dose: 4 mg Pantoprazole Sodium (Protonix Inj) 40 mg IVP BID [facility] Last Admin: 11/18/16 09:12 Dose: 40 mg Thiamine HCl (Vitamin B1 Tab) 100 mg PO DAILY [facility] Last Admin: 11/18/16 09:21 Dose: 100 mg Tramadol HCl (Ultram) 50 mg PO Q8H PRN PRN Reason: Pain, severe (8-10) Last Admin: 11/18/16 05:18 Dose: 50 mg - Labs Labs: 11/18/16 06:20 11/18/16 06:20 PT 13.6 Seconds (9.9-11.8) H 11/12/16 05:30 INR 1.26 (0.93-1.08) H 11/12/16 05:30 APTT 35.8 Seconds (23.7-30.8) H 11/12/16 05:30 - Constitutional Appears: Non-toxic, No Acute Distress - Head Exam Head Exam: ATRAUMATIC, NORMOCEPHALIC - Eye Exam Eye Exam: EOMI, Normal appearance - Respiratory Exam Respiratory Exam: Clear to Ausculation Bilateral, NORMAL BREATHING PATTERN - Cardiovascular Exam Cardiovascular Exam: +S1, +S2. absent: Bradycardia - GI/Abdominal Exam GI & Abdominal Exam: Soft. absent: Tenderness Additional comments: L sided abd drain with serosanguinous fluid - Exam External exam: absent: Ecchymosis, Erythema - Extremities Exam Extremities Exam: absent: Pedal Edema, Tenderness - Neurological Exam Neurological Exam: Alert, Awake - Psychiatric Exam Psychiatric exam: Normal Affect, Normal Mood - Skin Skin Exam: Intact, Normal Color Assessment and Plan - Assessment and Plan (Free Text) Plan: 51 year old male with past medial history of Pancreatitis, ETOH abuse, Thoracic Aneurysm here with Abd pain. Found to have multiple pseudocysts. IR drainage of pseudocyst 10/14/2016 Abd pain with Multiple large Psudocysts Repeat CT - Acute pancreatitis with large pancreatitic pseudocyst, pancreatic ductal dilatation; Pseudocysts in the wall of descending colon and stomach IR drainage consult, pseudocyst drainage 11/14/2016: 105 cc serosanguinous drained, repeat procedure in 5-7 days GI signed off, appreciate recs, recommended further studies at a [facility] for occult malignancy r/o Surgery following, appreciate recs, recommended EUS will order ABD CT with pancreatic protocol for monday or monday NS@ 75ml/hr Soft diet 2. Hx of HTN Stable at this time Continue to monitor 3. Hx of thoracic/abdominal aneurysm Surgery states no surgical intervention at this time F/u with CardioThoracic surgeon who did the surgery. Cardiology following Echo: EF 61% 4. focal colitis on CT/elevated white count WBC: 12.2 today, afebrile ABX per ID Zosyn body fluid cx negative growth, final blood culture from 11/07/16 shows coagulase negative staph, repeat Bcx negative at 48hr blood culture from 11/10/16 negative growth after 5 days, final Stool culture negative Repeat cxs negative stool c diff studies negative Procalcitonin reordered, 0.65. as well as knox cultures ordered 5. EtOH/Substance abuse Urine tox : Opiate, Methadone + Thiamine Counseled on abstinence Methadone 90mg given today 6. Iron deficiency anemia serum Fe less than 10 and MCV in 70s Iron sucrose ordered 7. PPx SCDs protonix <Felisha Copeland - Last Filed: 11/18/16 15:00> Objective - Vital Signs/Intake and Output Vital Signs (last 24 hours): Temp Pulse Resp BP Pulse Ox 98.8 F 78 18 141/83 94 L 11/18/16 08:00 11/18/16 08:00 11/18/16 08:00 11/18/16 08:00 11/18/16 08:00 Intake and Output: 11/18/16 11/18/16 06:59 18:59 Intake Total 3160 Output Total 3350 Balance -190 - Medications Medications: Current Medications Acetaminophen (Tylenol 325mg Tab) 650 mg PO Q4H PRN PRN Reason: Fever >100.4 F Last Admin: 11/16/16 16:25 Dose: 650 mg Folic Acid (Folic Acid) 1 mg IVP [facility]ILY [facility] Last Admin: 11/18/16 09:21 Dose: Not Given Sodium Chloride (Sodium Chloride 0.9%) 1,000 mls @ 75 mls/hr IV .[id number] [facility] Last Admin: 11/18/16 06:32 Dose: 75 mls/hr Iron Sucrose 200 mg/ Sodium (Chloride) 110 mls @ 110 mls/hr IVPB Q48H [facility] Last Admin: 11/18/16 10:15 Dose: 110 mls/hr Piperacillin Sod/Tazobactam Sod (Zosyn 3.375 In Ns 100ml) 100 mls @ 200 mls/hr IVPB Q6 [facility] PRN Reason: Protocol Stop: 11/25/16 12:01 Last Admin: 11/18/16 11:24 Dose: 200 mls/hr Iron Sucrose (Venofer) 200 mg IVP Q72 [facility] Stop: 11/30/16 10:01 Last Admin: 11/18/16 10:21 Dose: Not Given Ondansetron HCl (Zofran Inj) 4 mg IVP Q4 PRN PRN Reason: Nausea/Vomiting Last Admin: 11/17/16 11:18 Dose: 4 mg Pantoprazole Sodium (Protonix Inj) 40 mg IVP BID [facility] Last Admin: 11/18/16 09:12 Dose: 40 mg Thiamine HCl (Vitamin B1 Tab) 100 mg PO DAILY [facility] Last Admin: 11/18/16 09:21 Dose: 100 mg Tramadol HCl (Ultram) 50 mg PO Q8H PRN PRN Reason: Pain, severe (8-10) Last Admin: 11/18/16 05:18 Dose: 50 mg - Labs Labs: 11/18/16 06:20 11/18/16 06:20 PT 13.6 Seconds (9.9-11.8) H 11/12/16 05:30 INR 1.26 (0.93-1.08) H 11/12/16 05:30 APTT 35.8 Seconds (23.7-30.8) H 11/12/16 05:30 Attending/Attestation - Attestation I have personally seen and examined this patient.: Yes I have fully participated in the care of the patient.: Yes I have reviewed all pertinent clinical information, including history, physical exam and plan: Yes Notes (Text): 11/18/16 14:58 51 year old male with past medical history of alcohol abuse, substance abuse and pancreatitis who presented with abdominal pain. He was found to have large pancreatic pseudocyst and colitis on CT abd/pelvis. He is s/p IR drainage earlier this week. He is on iv antibiotics. His symptoms have improved and he is on iv antibiotics. His leukocytosis has also improved. He was started on iv iron for iron deficiency anemia. Plan is to repeat CT abd/pelvis early next week. Will discuss with GI as he may also need EUS. Felisha Copeland MD Hospitalist.
--- NOTE | 2016-11-18 15:42 | CP.PCM.PN ---
<ZariNavarro evans - Last Filed: 11/18/16 15:52> Subjective - Date & Time of Evaluation Date of Evaluation: 11/18/16 Time of Evaluation: 15:39 - Subjective Subjective: General Surgery Note - Dr. Alexander Service Patient seen and evaluated at bedside. Patient denies abdominal pain. He is tolerating a regular diet. Left lateral abdominal drain with dark pancreatic fluid output. Patient had a normal BM earlier today. He remains afebrile. Objective - Vital Signs/Intake and Output Vital Signs (last 24 hours): Temp Pulse Resp BP Pulse Ox 98.8 F 78 18 141/83 94 L 11/18/16 08:00 11/18/16 08:00 11/18/16 08:00 11/18/16 08:00 11/18/16 08:00 Intake and Output: 11/18/16 11/18/16 06:59 18:59 Intake Total 3160 1200 Output Total 3350 1900 Balance -190 -700 - Medications Medications: Current Medications Acetaminophen (Tylenol 325mg Tab) 650 mg PO Q4H PRN PRN Reason: Fever >100.4 F Last Admin: 11/16/16 16:25 Dose: 650 mg Folic Acid (Folic Acid) 1 mg IVP DAILY [facility] Last Admin: 11/18/16 09:21 Dose: Not Given Sodium Chloride (Sodium Chloride 0.9%) 1,000 mls @ 75 mls/hr IV .[id number] [facility] Last Admin: 11/18/16 06:32 Dose: 75 mls/hr Iron Sucrose 200 mg/ Sodium (Chloride) 110 mls @ 110 mls/hr IVPB Q48H [facility] Last Admin: 11/18/16 10:15 Dose: 110 mls/hr Piperacillin Sod/Tazobactam Sod (Zosyn 3.375 In Ns 100ml) 100 mls @ 200 mls/hr IVPB Q6 [facility] PRN Reason: Protocol Stop: 11/25/16 12:01 Last Admin: 11/18/16 11:24 Dose: 200 mls/hr Iron Sucrose (Venofer) 200 mg IVP Q72 [facility] Stop: 11/30/16 10:01 Last Admin: 11/18/16 10:21 Dose: Not Given Ondansetron HCl (Zofran Inj) 4 mg IVP Q4 PRN PRN Reason: Nausea/Vomiting Last Admin: 11/17/16 11:18 Dose: 4 mg Pantoprazole Sodium (Protonix Inj) 40 mg IVP BID [facility] Last Admin: 11/18/16 09:12 Dose: 40 mg Thiamine HCl (Vitamin B1 Tab) 100 mg PO DAILY [facility] Last Admin: 11/18/16 09:21 Dose: 100 mg Tramadol HCl (Ultram) 50 mg PO Q8H PRN PRN Reason: Pain, severe (8-10) Last Admin: 11/18/16 05:18 Dose: 50 mg - Labs Labs: 11/18/16 06:20 11/18/16 06:20 PT 13.6 Seconds (9.9-11.8) H 11/12/16 05:30 INR 1.26 (0.93-1.08) H 11/12/16 05:30 APTT 35.8 Seconds (23.7-30.8) H 11/12/16 05:30 - Constitutional Appears: Non-toxic, No Acute Distress - Head Exam Head Exam: ATRAUMATIC, NORMOCEPHALIC - Eye Exam Eye Exam: EOMI, PERRL - ENT Exam ENT Exam: Mucous Membranes Moist - Respiratory Exam Respiratory Exam: Clear to Ausculation Bilateral. absent: Rales, Rhonchi - Cardiovascular Exam Cardiovascular Exam: REGULAR RHYTHM - GI/Abdominal Exam GI & Abdominal Exam: Soft, Normal Bowel Sounds. absent: Distended, Tenderness Additional comments: left lateral abdominal drain in place with 150ml dark pancreatic fluid output/ 24hr - Back Exam Back Exam: muscle spasm, NORMAL INSPECTION. absent: tenderness - Neurological Exam Neurological Exam: Alert, Awake, Oriented x3 - Psychiatric Exam Psychiatric exam: Normal Affect, Normal Mood - Skin Skin Exam: Dry, Intact, Normal Color, Warm Assessment and Plan - Assessment and Plan (Free Text) Assessment: 51 y/o male with PMH ETOH abuse presenting with pancreatitis complicated by pseudocysts s/p drainage POD #4. - IR drain with about 150mL dark fluid output/24hrs - repeat CT abd/pelvis per medical team - plans to transfer patient to [facility] for ultimate treatment of multiple pancreatic psueocysts per GI - no surgical intervention at this time. will continue to follow patient closely. <Finn Gray - Last Filed: 02/22/17 23:32> Objective - Vital Signs/Intake and Output Vital Signs (last 24 hours): Temp Pulse Resp BP Pulse Ox 98.3 F 69 20 126/75 97 11/22/16 07:48 11/22/16 07:48 11/22/16 07:48 11/22/16 07:48 11/22/16 07:48 - Labs Labs: 11/21/16 10:00 11/21/16 10:00 PT 13.6 Seconds (9.9-11.8) H 11/12/16 05:30 INR 1.26 (0.93-1.08) H 11/12/16 05:30 APTT 35.8 Seconds (23.7-30.8) H 11/12/16 05:30 Assessment and Plan - Assessment and Plan (Free Text) Plan: Patient was seen and examined by me. I agree with assessment and plan as per resident's note.
[2016-11-19] MEDS: Sodium Chloride 0.9% 1,000 ML IV SCH (02:59)
[2016-11-19] MEDS: Piperacillin/Tazobact 3.375 gm 100 ML IVPB SCH ×2 (05:02→11:28)
[2016-11-19 07:31] LABS: ADD MANUAL DIFF? NO
[2016-11-19 07:45] LABS: BASO # 0.04 K/mm3 (0.0-2.0); BASO % 0.3 % (0.0-3.0); EOS # 0.3 (0.0-0.7); EOS % 2.2 % (1.5-5.0); GRAN # 9.93 (1.4-6.5); LYMPH # 1.9 (1.2-3.4); LYMPH % 15.1 % (22.0-35.0); MEAN CELL VOLUME 74.4 fL (80.0-105.0); MEAN CORPUSCULAR HEMOGLOBIN 26.5 pg (25.0-35.0); MEAN CORPUSCULAR HGB CONC 35.6 g/dl (31.0-37.0); MEAN PLATELET VOLUME 9.3 fl (7.0-11.0); MONO # 0.7 (0.1-0.6); MONO % 5.4 % (1.0-6.0); PLATELET COUNT 335 10^3/uL (120.0-450.0); RED CELL DISTRIBUTION WIDTH 15.8 % (11.5-14.5); WHITE BLOOD COUNT 12.9 10^3/ul (4.5-11.0)
[2016-11-19 07:52] LABS: ALB/GLOB RATIO 0.7 (1.1-1.8); ALKALINE PHOSPHATASE 165 U/L (38-133); ALT/SGPT 31 U/L (7-56); AST/SGOT 43 U/L (15-59); BILIRUBIN,TOTAL 0.3 mg/dL (0.2-1.3); BLOOD UREA NITROGEN 2 mg/dL (7-21); CALCIUM 8.6 mg/dL (8.4-10.5); CARBON DIOXIDE 29 mmol/L (21-33); CHLORIDE 106 mmol/L (95-110); GFR AFRICAN-AMERICAN > 60; GLUCOSE,RANDOM 63 mg/dL (70-110); POTASSIUM 5.1 mmol/L (3.6-5.0); SODIUM 140 mmol/L (132-148)
[2016-11-19 08:02] LABS: HEMATOCRIT 23.6 % (42.0-52.0)
--- NOTE | 2016-11-19 13:56 | PN ---
DATE: 11/19/2016 The patient is in bed in no acute distress, nontoxic. PHYSICAL EXAMINATION: VITAL SIGNS: Temperature is 98, blood pressure is 130/80, respiratory rate of 18, heart rate of 79. HEENT: Unremarkable. NECK: Supple. LUNGS: Have decreased breath sounds. HEART: Normal S1, S2. ABDOMEN: Soft. LABORATORY EXAMINATION: Reveals a 12,000 white count and hemoglobin of 8, platelets of 335. Bradder brandon reveal the BUN of 2, creatinine of 0.7. Alk phos is 165 as of this morning. Urinalysis is unre markable. Serology: HIV test is negative. Microbiology reveals the sputum culture is pending. No organism seen on the gram stain and urine cultures no growth. Stool for C. diff toxin and antigen is negative. Blood cultures are no growth. . ____ note is reviewed. Dr. Juice Rivers's note is re viewed. ASSESSMENT AND PLAN: A 51-year-old male with a history of alcohol abuse admitted with sepsis seconda ry to acute pancreatitis, colitis complicated with pseudocyst and 1 blood culture is positive for coa g. The patient had a CAT scan guided drainage of the pseudocyst. All cultures are negative currentl y. We will discontinue the Zosyn, appears to be a ____ pseudocyst and the patient does have mild wilian kocytosis and clinically nontoxic. He is tolerating his antibiotics. He is tolerating his diet. We will discontinue the antibiotics. No antibiotics at this time. The patient is at risk for developi ng nosocomial infections. We will follow closely with you. Sukhdeep Fox MD cc: [id number] TT: 11/19/2016 13:55:45 Confirmation # [id number] Dictation # [id number] tn
--- NOTE | 2016-11-19 14:10 | CP.PCM.PN ---
<Alhaji Ortega - Last Filed: 11/19/16 14:06> Subjective - Date & Time of Evaluation Date of Evaluation: 11/19/16 Time of Evaluation: 09:30 - Subjective Subjective: Dr. Ortega PGY 1 Hospitalist note Patient seen and evaluated at bedside. He states he is feeling much better today and is tolerating his diet well. He denies any nausea, vomiting, chest pain, abdominal pain, fever, or chills. He reports the nurses are flushing his drain and has had less output. Objective - Vital Signs/Intake and Output Vital Signs (last 24 hours): Temp Pulse Resp BP Pulse Ox 98.3 F 81 20 132/82 95 11/19/16 07:30 11/19/16 07:30 11/19/16 07:30 11/19/16 07:30 11/19/16 07:30 Intake and Output: 11/19/16 11/19/16 06:59 18:59 Intake Total 3100 Output Total 4625 Balance -1525 - Medications Medications: Current Medications Acetaminophen (Tylenol 325mg Tab) 650 mg PO Q4H PRN PRN Reason: Fever >100.4 F Last Admin: 11/16/16 16:25 Dose: 650 mg Folic Acid (Folic Acid) 1 mg IVP DAILY [facility] Last Admin: 11/18/16 09:21 Dose: Not Given Sodium Chloride (Sodium Chloride 0.9%) 1,000 mls @ 75 mls/hr IV .[id number] [facility] Last Admin: 11/19/16 02:59 Dose: 75 mls/hr Iron Sucrose 200 mg/ Sodium (Chloride) 110 mls @ 110 mls/hr IVPB Q48H [facility] Last Admin: 11/18/16 10:15 Dose: 110 mls/hr Ondansetron HCl (Zofran Inj) 4 mg IVP Q4 PRN PRN Reason: Nausea/Vomiting Last Admin: 11/19/16 09:33 Dose: 4 mg Pantoprazole Sodium (Protonix Inj) 40 mg IVP BID [facility] Last Admin: 11/19/16 09:31 Dose: 40 mg Thiamine HCl (Vitamin B1 Tab) 100 mg PO DAILY [facility] Last Admin: 11/19/16 09:31 Dose: 100 mg Tramadol HCl (Ultram) 50 mg PO Q8H PRN PRN Reason: Pain, severe (8-10) Last Admin: 11/18/16 21:36 Dose: 50 mg - Labs Labs: 11/19/16 07:00 11/19/16 07:00 PT 13.6 Seconds (9.9-11.8) H 11/12/16 05:30 INR 1.26 (0.93-1.08) H 11/12/16 05:30 APTT 35.8 Seconds (23.7-30.8) H 11/12/16 05:30 - Constitutional Appears: Non-toxic, No Acute Distress - Head Exam Head Exam: ATRAUMATIC, NORMOCEPHALIC - Eye Exam Eye Exam: EOMI, Normal appearance, PERRL Pupil Exam: NORMAL ACCOMODATION, PERRL - ENT Exam ENT Exam: Mucous Membranes Moist. absent: Normal Oropharynx (poor dentition) - Respiratory Exam Respiratory Exam: Clear to Ausculation Bilateral, NORMAL BREATHING PATTERN. absent: Rales, Rhonchi, Wheezes - Cardiovascular Exam Cardiovascular Exam: REGULAR RHYTHM, +S1, +S2. absent: Gallop, Rubs, Murmur - GI/Abdominal Exam GI & Abdominal Exam: Soft, Normal Bowel Sounds. absent: Tenderness - Extremities Exam Extremities Exam: Normal Inspection. absent: Pedal Edema, Tenderness - Neurological Exam Neurological Exam: Alert, Awake, CN II-XII Intact, Oriented x3 - Psychiatric Exam Psychiatric exam: Normal Affect, Normal Mood - Skin Skin Exam: Dry, Intact, Warm Assessment and Plan - Assessment and Plan (Free Text) Assessment: 51 year old male with past medial history of Pancreatitis, ETOH abuse, Thoracic Aneurysm here with Abd pain. Found to have multiple pseudocysts. IR drainage of pseudocyst 10/14/2016 Plan: 1. Abd pain with Multiple large Psudocysts Repeat CT - Acute pancreatitis with large pancreatitic pseudocyst, pancreatic ductal dilatation; Pseudocysts in the wall of descending colon and stomach IR drainage consult, pseudocyst drainage 11/14/2016: 105 cc serosanguinous drained, repeat procedure in 5-7 days GI signed off, appreciate recs, recommended further studies at [facility] for occult malignancy r/o Surgery following, appreciate recs, recommended EUS will order ABD CT with pancreatic protocol for monday or monday NS@ 75ml/hr GI altered diet 2. Hx of HTN Stable at this time Continue to monitor 3. Hx of thoracic/abdominal aneurysm Surgery states no surgical intervention at this time F/u with CardioThoracic surgeon who did the surgery. Cardiology following Echo: EF 61% 4. focal colitis on CT/elevated white count WBC: 12.9 today, afebrile ABX D/C'd per ID body fluid cx negative growth, final blood culture from 11/07/16 shows coagulase negative staph, repeat Bcx negative at 48hr blood culture from 11/10/16 negative growth after 5 days, final Stool culture negative Repeat cxs negative stool c diff studies negative Procalcitonin reordered, 0.65. as well as knox cultures ordered 5. EtOH/Substance abuse Urine tox : Opiate, Methadone + Thiamine Counseled on abstinence Methadone 90mg given today 6. Iron deficiency anemia serum Fe less than 10 and MCV in 70s Iron sucrose ordered 7. PPx SCDs protonix Assessment and plan discussed with attending physician. <Felisha Copeland A - Last Filed: 11/19/16 14:54> Objective - Vital Signs/Intake and Output Vital Signs (last 24 hours): Temp Pulse Resp BP Pulse Ox 98.3 F 81 20 132/82 95 11/19/16 07:30 11/19/16 07:30 11/19/16 07:30 11/19/16 07:30 11/19/16 07:30 Intake and Output: 11/19/16 11/19/16 06:59 18:59 Intake Total 3100 720 Output Total 4625 400 Balance -1525 320 - Medications Medications: Current Medications Acetaminophen (Tylenol 325mg Tab) 650 mg PO Q4H PRN PRN Reason: Fever >100.4 F Last Admin: 11/16/16 16:25 Dose: 650 mg Folic Acid (Folic Acid) 1 mg IVP DAILY [facility] Last Admin: 11/18/16 09:21 Dose: Not Given Sodium Chloride (Sodium Chloride 0.9%) 1,000 mls @ 75 mls/hr IV .[id number] [facility] Last Admin: 11/19/16 02:59 Dose: 75 mls/hr Iron Sucrose 200 mg/ Sodium (Chloride) 110 mls @ 110 mls/hr IVPB Q48H [facility] Last Admin: 11/18/16 10:15 Dose: 110 mls/hr Ondansetron HCl (Zofran Inj) 4 mg IVP Q4 PRN PRN Reason: Nausea/Vomiting Last Admin: 11/19/16 09:33 Dose: 4 mg Pantoprazole Sodium (Protonix Inj) 40 mg IVP BID [facility] Last Admin: 11/19/16 09:31 Dose: 40 mg Thiamine HCl (Vitamin B1 Tab) 100 mg PO DAILY [facility] Last Admin: 11/19/16 09:31 Dose: 100 mg Tramadol HCl (Ultram) 50 mg PO Q8H PRN PRN Reason: Pain, severe (8-10) Last Admin: 11/18/16 21:36 Dose: 50 mg - Labs Labs: 11/19/16 07:00 11/19/16 07:00 PT 13.6 Seconds (9.9-11.8) H 11/12/16 05:30 INR 1.26 (0.93-1.08) H 11/12/16 05:30 APTT 35.8 Seconds (23.7-30.8) H 11/12/16 05:30 Attending/Attestation - Attestation I have personally seen and examined this patient.: Yes I have fully participated in the care of the patient.: Yes I have reviewed all pertinent clinical information, including history, physical exam and plan: Yes Notes (Text): 11/19/16 14:52 51 year old male with past medical history of alcohol abuse, substance abuse and pancreatitis who presented with abdominal pain. He was found to have large pancreatic pseudocyst and colitis on CT abd/pelvis. He was started on antibiotics. He is s/p IR drainage earlier this week. Clinically he has been doing well over the past few days. He is no longer febrile and his leukocytosis has improved. His antibiotics have been discontinued by ID today. Plan is to repeat CT abd/pelvis either tomorrow or Monday. Then will discuss with GI. He is also on iv iron for iron deficiency anemia. He was counselled on alcohol abstinence. Felisha Copeland MD Hospitalist.
[2016-11-20] MEDS: Sodium Chloride 0.9% 1,000 ML IV SCH (06:52)
[2016-11-20 07:11] LABS: ADD MANUAL DIFF? NO
[2016-11-20 07:20] LABS: BASO # 0.07 K/mm3 (0.0-2.0); BASO % 0.6 % (0.0-3.0); EOS # 0.2 (0.0-0.7); EOS % 1.9 % (1.5-5.0); GRAN # 8.89 (1.4-6.5); GRAN % 71.7 % (50.0-68.0); LYMPH # 2.3 (1.2-3.4); LYMPH % 18.6 % (22.0-35.0); MEAN CELL VOLUME 74.5 fL (80.0-105.0); MEAN CORPUSCULAR HEMOGLOBIN 26.8 pg (25.0-35.0); MEAN CORPUSCULAR HGB CONC 35.9 g/dl (31.0-37.0); MEAN PLATELET VOLUME 9.4 fl (7.0-11.0); MONO # 0.9 (0.1-0.6); MONO % 7.2 % (1.0-6.0); PLATELET COUNT 318 10^3/uL (120.0-450.0); WHITE BLOOD COUNT 12.4 10^3/ul (4.5-11.0)
[2016-11-20 07:47] LABS: HEMATOCRIT 23.1 % (42.0-52.0)
[2016-11-20 08:15] LABS: ALB/GLOB RATIO 0.7 (1.1-1.8); ALKALINE PHOSPHATASE 155 U/L (38-133); ALT/SGPT 34 U/L (7-56); AST/SGOT 22 U/L (15-59); BILIRUBIN,TOTAL 0.4 mg/dL (0.2-1.3); BLOOD UREA NITROGEN 3 mg/dL (7-21); CALCIUM 8.5 mg/dL (8.4-10.5); CARBON DIOXIDE 25 mmol/L (21-33); CHLORIDE 106 mmol/L (98-107); GFR AFRICAN-AMERICAN > 60; GLUCOSE,RANDOM 64 mg/dL (70-110); POTASSIUM 4.4 mmol/L (3.6-5.0); SODIUM 140 mmol/L (132-148); TOTAL PROTEIN 5.8 g/dL (5.8-8.3)
--- NOTE | 2016-11-20 10:47 | CP.PCM.PN ---
<Shari Daniels - Last Filed: 11/20/16 10:43> Subjective - Date & Time of Evaluation Date of Evaluation: 11/20/16 Time of Evaluation: 10:43 - Subjective Subjective: General Surgery - Dr. Gray Pt S[facility]E. [facility]. Pt has mild discomfort at the drain site, otherwise no complaints. He is tolerating diet. He denies any N/V, F/C, SOB/Cp. Objective - Vital Signs/Intake and Output Vital Signs (last 24 hours): Temp Pulse Resp BP Pulse Ox 98.9 F 87 20 144/90 96 11/20/16 08:09 11/20/16 08:09 11/20/16 08:09 11/20/16 08:09 11/20/16 08:09 Intake and Output: 11/20/16 11/20/16 06:59 18:59 Intake Total 1800 Output Total 690 Balance 1110 - Medications Medications: Current Medications Acetaminophen (Tylenol 325mg Tab) 650 mg PO Q4H PRN PRN Reason: Fever >100.4 F Last Admin: 11/16/16 16:25 Dose: 650 mg Folic Acid (Folic Acid) 1 mg IVP DAILY [facility] Last Admin: 11/19/16 17:07 Dose: 1 mg Sodium Chloride (Sodium Chloride 0.9%) 1,000 mls @ 75 mls/hr IV .[id number] [facility] Last Admin: 11/20/16 06:52 Dose: 75 mls/hr Iron Sucrose 200 mg/ Sodium (Chloride) 110 mls @ 110 mls/hr IVPB Q48H [facility] Last Admin: 11/20/16 08:55 Dose: 110 mls/hr Ondansetron HCl (Zofran Inj) 4 mg IVP Q4 PRN PRN Reason: Nausea/Vomiting Last Admin: 11/19/16 22:16 Dose: 4 mg Pantoprazole Sodium (Protonix Inj) 40 mg IVP BID [facility] Last Admin: 11/20/16 09:00 Dose: 40 mg Thiamine HCl (Vitamin B1 Tab) 100 mg PO DAILY [facility] Last Admin: 11/20/16 09:00 Dose: 100 mg - Labs Labs: 11/20/16 07:09 11/20/16 07:56 PT 13.6 Seconds (9.9-11.8) H 11/12/16 05:30 INR 1.26 (0.93-1.08) H 11/12/16 05:30 APTT 35.8 Seconds (23.7-30.8) H 11/12/16 05:30 - Constitutional Appears: No Acute Distress - Head Exam Head Exam: ATRAUMATIC, NORMOCEPHALIC - Respiratory Exam Respiratory Exam: NORMAL BREATHING PATTERN. absent: Respiratory Distress - GI/Abdominal Exam GI & Abdominal Exam: Soft. absent: Distended, Guarding, Tenderness, Rebound Additional comments: IR drain in place w/ dark bilious drainage - Neurological Exam Neurological Exam: Alert, Oriented x3 - Psychiatric Exam Psychiatric exam: Normal Affect, Normal Mood - Skin Skin Exam: Dry, Intact Assessment and Plan - Assessment and Plan (Free Text) Assessment: 51M w/ pancreatic pseudocysts s/p IR drain day #5 - Monitor IR drain - F/U rpt CT abd/pelvis - Poss. Transfer to [facility] for further GI treatment - No surgical intervention at this time - Will follow Will DW Dr Marina Daniels PGY2 <Finn Gray - Last Filed: 02/22/17 23:32> Objective - Vital Signs/Intake and Output Vital Signs (last 24 hours): Temp Pulse Resp BP Pulse Ox 98.3 F 69 20 126/75 97 11/22/16 07:48 11/22/16 07:48 11/22/16 07:48 11/22/16 07:48 11/22/16 07:48 - Labs Labs: 11/21/16 10:00 11/21/16 10:00 PT 13.6 Seconds (9.9-11.8) H 11/12/16 05:30 INR 1.26 (0.93-1.08) H 11/12/16 05:30 APTT 35.8 Seconds (23.7-30.8) H 11/12/16 05:30 Assessment and Plan - Assessment and Plan (Free Text) Plan: Patient was seen and examined by me. I agree with assessment and plan as per resident's note.
--- NOTE | 2016-11-20 23:49 | CP.PCM.PN ---
<Chetna Rivers - Last Filed: 11/21/16 06:25> Subjective - Date & Time of Evaluation Date of Evaluation: 11/20/16 Time of Evaluation: 08:45 - Subjective Subjective: Pt seen and evaluated at bedside. Pt reports eating well and denies pain. No V. Afebrile overnight. Objective - Vital Signs/Intake and Output Vital Signs (last 24 hours): Temp Pulse Resp BP Pulse Ox 98.9 F 87 20 144/90 96 11/20/16 08:09 11/20/16 08:09 11/20/16 08:09 11/20/16 08:09 11/20/16 08:09 Intake and Output: 11/20/16 11/21/16 18:59 06:59 Intake Total 960 Output Total 200 200 Balance 760 -200 - Medications Medications: Current Medications Acetaminophen (Tylenol 325mg Tab) 650 mg PO Q4H PRN PRN Reason: Fever >100.4 F Last Admin: 11/16/16 16:25 Dose: 650 mg Folic Acid (Folic Acid) 1 mg PO DAILY [facility] Iron Sucrose 200 mg/ Sodium (Chloride) 110 mls @ 110 mls/hr IVPB Q48H [facility] Last Admin: 11/20/16 08:55 Dose: 110 mls/hr Multivitamins (Thera Tab) 1 tab PO DAILY [facility] Ondansetron HCl (Zofran Inj) 4 mg IVP Q4 PRN PRN Reason: Nausea/Vomiting Last Admin: 11/19/16 22:16 Dose: 4 mg Pantoprazole Sodium (Protonix Inj) 40 mg IVP BID [facility] Last Admin: 11/20/16 17:06 Dose: 40 mg Thiamine HCl (Vitamin B1 Tab) 100 mg PO DAILY [facility] Last Admin: 11/20/16 09:00 Dose: 100 mg - Labs Labs: 11/20/16 07:09 11/20/16 07:56 PT 13.6 Seconds (9.9-11.8) H 11/12/16 05:30 INR 1.26 (0.93-1.08) H 11/12/16 05:30 APTT 35.8 Seconds (23.7-30.8) H 11/12/16 05:30 - Additional Findings Additional findings: - Constitutional Appears: Non-toxic, No Acute Distress - Head Exam Head Exam: ATRAUMATIC, NORMOCEPHALIC - Eye Exam Eye Exam: EOMI, PERRL - ENT Exam ENT Exam: Mucous Membranes Moist. absent: Normal Oropharynx (poor dentition) - Respiratory Exam Respiratory Exam: Clear to Ausculation Bilateral, NORMAL BREATHING PATTERN. absent: Rales, Rhonchi, Wheezes - Cardiovascular Exam Cardiovascular Exam: REGULAR RHYTHM, +S1, +S2. absent: Gallop, Rubs, Murmur - GI/Abdominal Exam GI & Abdominal Exam: Soft, Normal Bowel Sounds. absent: Tenderness - Extremities Exam Extremities Exam: Normal Inspection. absent: Pedal Edema, Tenderness - Neurological Exam Neurological Exam: Alert, Awake - Psychiatric Exam Psychiatric exam: Normal Affect, Normal Mood - Skin Skin Exam: Dry, Intact, Warm Assessment and Plan - Assessment and Plan (Free Text) Plan: 51 year old male with past medial history of Pancreatitis, ETOH abuse, Thoracic Aneurysm here with Abd pain. Found to have multiple pseudocysts. IR drainage of pseudocyst 10/14/2016 Plan: 1. Abd pain with Multiple large Psudocysts Repeat CT - Acute pancreatitis with large pancreatitic pseudocyst, pancreatic ductal dilatation; Pseudocysts in the wall of descending colon and stomach IR drainage consult, pseudocyst drainage 11/14/2016: 105 cc serosanguinous drained, repeat procedure in 5-7 days GI signed off, appreciate recs, recommended further studies at a [facility] for occult malignancy r/o Surgery following, appreciate recs, recommended EUS ABD CT with pancreatic protocol for monday GI altered diet 2. Hx of HTN Stable at this time Continue to monitor 3. Hx of thoracic/abdominal aneurysm Surgery states no surgical intervention at this time F/u with CardioThoracic surgeon who did the surgery. Cardiology following Echo: EF 61% 4. focal colitis on CT/elevated white count WBC: 12.4 today, afebrile ABX D/C'd per ID body fluid cx negative growth, final blood culture from 11/07/16 shows coagulase negative staph, repeat Bcx negative at 72hr blood culture from 11/10/16 negative growth after 5 days, final Stool culture negative Repeat cxs negative stool c diff studies negative Procalcitonin reordered, 0.65. as well as knox cultures ordered 5. EtOH/Substance abuse Urine tox : Opiate, Methadone + Thiamine Counseled on abstinence Methadone 100mg given today 6. Iron deficiency anemia serum Fe less than 10 and MCV in 70s Iron sucrose ordered 7. PPx SCDs protonix Assessment and plan discussed with attending physician <Felisha Copeland - Last Filed: 11/21/16 12:51> Objective - Vital Signs/Intake and Output Vital Signs (last 24 hours): Temp Pulse Resp BP Pulse Ox 98.5 F 84 20 138/87 94 L 11/21/16 07:30 11/21/16 07:30 11/21/16 07:30 11/21/16 07:30 11/21/16 07:30 Intake and Output: 11/21/16 11/21/16 06:59 18:59 Intake Total 240 Output Total 1150 Balance -910 - Medications Medications: Current Medications Acetaminophen (Tylenol 325mg Tab) 650 mg PO Q4H PRN PRN Reason: Fever >100.4 F Last Admin: 11/21/16 04:44 Dose: 650 mg Folic Acid (Folic Acid) 1 mg PO DAILY [facility] Last Admin: 11/21/16 10:33 Dose: 1 mg Iron Sucrose 200 mg/ Sodium (Chloride) 110 mls @ 110 mls/hr IVPB Q48H [facility] Last Admin: 11/20/16 08:55 Dose: 110 mls/hr Multivitamins (Thera Tab) 1 tab PO DAILY [facility] Last Admin: 11/21/16 10:33 Dose: 1 tab Ondansetron HCl (Zofran Inj) 4 mg IVP Q4 PRN PRN Reason: Nausea/Vomiting Last Admin: 11/19/16 22:16 Dose: 4 mg Pantoprazole Sodium (Protonix Inj) 40 mg IVP BID [facility] Last Admin: 11/21/16 10:33 Dose: 40 mg Thiamine HCl (Vitamin B1 Tab) 100 mg PO DAILY [facility] Last Admin: 11/21/16 10:33 Dose: 100 mg - Labs Labs: 11/21/16 10:00 11/21/16 10:00 PT 13.6 Seconds (9.9-11.8) H 11/12/16 05:30 INR 1.26 (0.93-1.08) H 11/12/16 05:30 APTT 35.8 Seconds (23.7-30.8) H 11/12/16 05:30 Attending/Attestation - Attestation I have personally seen and examined this patient.: Yes I have fully participated in the care of the patient.: Yes I have reviewed all pertinent clinical information, including history, physical exam and plan: Yes Notes (Text): 11/20/16 51 year old male with past medical history of alcohol abuse, substance abuse and pancreatitis who presented with abdominal pain. He was found to have large pancreatic pseudocyst and colitis on CT abd/pelvis. He is s/p IR drainage last week. Clinically he has been doing well over the past few days and his antibiotics were discontinued. He is tolerated diet. Plan will be to repeat CT abd/pelvis today and discuss with IR and GI tomorrow. Ultimately he will need follow up at [facility] and EUS. He is on iv iron for iron deficiency anemia. He was counselled on alcohol abstinence. Felisha Copeland MD Hospitalist.
--- NOTE | 2016-11-21 08:26 | PN ---
DATE: 11/20/2016 The patient is in bed in no acute distress, nontoxic. PHYSICAL EXAMINATION: VITAL SIGNS: Temperature is 98, blood pressure is 140/90, respiratory rate of 16. HEENT: Unremarkable. NECK: Supple. LUNGS: Have decreased breath sounds. HEART: Normal S1, S2. ABDOMEN: Soft, nontender. LABORATORY DATA: Is noted. The patient's white count is 12,400. Microbiology: Yeast in the sputum , most likely a colonizer. Priscila Daniels's note is reviewed. ASSESSMENT AND PLAN: The patient is a 51-year-old male with a history of alcohol abuse, admitted wit h sepsis secondary to acute pancreatitis, colitis, complicated with pseudocyst, 1 positive blood cult ure for coagulase negative Staphylococcus. He had a CAT scan guided drainage of a pseudocyst. Oral cultures are negative. He was treated empirically with Zosyn until all the cultures are back negativ e. Currently off of antibiotics. He is awake and alert and was seen early this morning, tolerating his diet well. Sukhdeep Fox MD cc: 350 TT: 11/20/2016 18:07:03 Confirmation # [id number] Dictation # [id number] dn
[2016-11-21] MEDS ORDERED: Iohexol 240 (50 ml) ONE (08:29)
[2016-11-21 10:07] LABS: ADD MANUAL DIFF? NO
[2016-11-21 10:10] LABS: BASO # 0.06 K/mm3 (0.0-2.0); BASO % 0.6 % (0.0-3.0); EOS # 0.2 (0.0-0.7); EOS % 2.1 % (1.5-5.0); GRAN # 6.92 (1.4-6.5); GRAN % 67.5 % (50.0-68.0); HEMATOCRIT 26.5 % (42.0-52.0); LYMPH # 2.2 (1.2-3.4); LYMPH % 21.4 % (22.0-35.0); MEAN CELL VOLUME 74.4 fL (80.0-105.0); MEAN CORPUSCULAR HEMOGLOBIN 26.1 pg (25.0-35.0); MEAN CORPUSCULAR HGB CONC 35.1 g/dl (31.0-37.0); MEAN PLATELET VOLUME 9.2 fl (7.0-11.0); MONO # 0.9 (0.1-0.6); MONO % 8.4 % (1.0-6.0); PLATELET COUNT 310 10^3/uL (120.0-450.0); RED CELL DISTRIBUTION WIDTH 16.1 % (11.5-14.5); WHITE BLOOD COUNT 10.3 10^3/ul (4.5-11.0)
[2016-11-21 10:21] LABS: ALB/GLOB RATIO 0.7 (1.1-1.8); ALKALINE PHOSPHATASE 162 U/L (38-133); ALT/SGPT 32 U/L (7-56); AST/SGOT 33 U/L (15-59); BILIRUBIN,TOTAL 0.3 mg/dL (0.2-1.3); BLOOD UREA NITROGEN 6 mg/dL (7-21); CALCIUM 8.9 mg/dL (8.4-10.5); CARBON DIOXIDE 26 mmol/L (21-33); CHLORIDE 102 mmol/L (98-107); GFR AFRICAN-AMERICAN > 60; GLUCOSE,RANDOM 80 mg/dL (70-110); POTASSIUM 4.4 mmol/L (3.6-5.0); SODIUM 136 mmol/L (132-148)
[2016-11-21] MEDS: Multivitamin Therapeutic Tab PO SCH (10:33)
--- NOTE | 2016-11-21 10:36 | CT ---
PROCEDURE: CT Abdomen with and without HISTORY: multiple pancreatic pseudocysts COMPARISON: 11/10/2016 TECHNIQUE: Contrast dose: 150 cc of Omni 350 Radiation dose: Total exam DLP = 938 mGy-cm. This CT exam was performed using one or more of the following dose reduction techniques: Automated exposure control, adjustment of the mA and/or kV according to patient size, and/or use of iterative reconstruction technique. FINDINGS: LOWER THORAX: There is a chronic aortic dissection. LIVER: Unremarkable. No gross lesion or ductal dilatation. GALLBLADDER AND BILE DUCTS: The gallbladder is contracted. PANCREAS: There has been significant improvement in the multiple peripancreatic cysts and ascites. A drainage catheter is still in place between the pancreas and the stomach. The largest residual fluid collection seen on image 61 series 6 measures 2.7 x 4 cm. The remaining fluid collections have nearly completely resolved. The ascites has resolved. There is no pancreatic edema. SPLEEN: Unremarkable. ADRENALS: Unremarkable. No mass. KIDNEYS AND URETERS: Unremarkable. No hydronephrosis. No solid mass. VASCULATURE: Unremarkable. No aortic aneurysm. BOWEL: Unremarkable. No obstruction. No gross mural thickening. PERITONEUM: Unremarkable. No free fluid. No free air. LYMPH NODES: Unremarkable. No enlarged lymph nodes. BONES: No acute fracture. OTHER FINDINGS: None. IMPRESSION: Significant improvement in multiple peripancreatic cysts and ascites post drainage
--- NOTE | 2016-11-21 16:03 | CP.PCM.PN ---
Subjective - Date & Time of Evaluation Date of Evaluation: 11/21/16 Time of Evaluation: 10:25 - Subjective Subjective: Comfortable, afebrile, not in distress. Objective - Vital Signs/Intake and Output Vital Signs (last 24 hours): Temp Pulse Resp BP Pulse Ox 98.5 F 84 20 138/87 94 L 11/21/16 07:30 11/21/16 07:30 11/21/16 07:30 11/21/16 07:30 11/21/16 07:30 Intake and Output: 11/21/16 11/21/16 06:59 18:59 Intake Total 240 840 Output Total 1150 150 Balance -910 690 - Medications Medications: Current Medications Acetaminophen (Tylenol 325mg Tab) 650 mg PO Q4H PRN PRN Reason: Fever >100.4 F Last Admin: 11/21/16 04:44 Dose: 650 mg Folic Acid (Folic Acid) 1 mg PO DAILY [facility] BEDS AT [facility] Last Admin: 11/21/16 10:33 Dose: 1 mg Iron Sucrose 200 mg/ Sodium (Chloride) 110 mls @ 110 mls/hr IVPB Q48H COUNTS [facility]CLUDE 234 BEDS AT THE [facility] Last Admin: 11/20/16 08:55 Dose: 110 mls/hr Multivitamins (Thera Tab) 1 tab PO DAILY COUNTS [facility]CLUDE 234 BEDS AT THE [facility] Last Admin: 11/21/16 10:33 Dose: 1 tab Ondansetron HCl (Zofran Inj) 4 mg IVP Q4 PRN PRN Reason: Nausea/Vomiting Last Admin: 11/19/16 22:16 Dose: 4 mg Pantoprazole Sodium (Protonix Inj) 40 mg IVP BID COUNTS [facility]CLUDE 234 BEDS AT [facility] Last Admin: 11/21/16 10:33 Dose: 40 mg Thiamine HCl (Vitamin B1 Tab) 100 mg PO DAILY COUNTS [facility]CLUDE 234 BEDS AT THE [facility] Last Admin: 11/21/16 10:33 Dose: 100 mg - Labs Labs: 11/21/16 10:00 11/21/16 10:00 PT 13.6 Seconds (9.9-11.8) H 11/12/16 05:30 INR 1.26 (0.93-1.08) H 11/12/16 05:30 APTT 35.8 Seconds (23.7-30.8) H 11/12/16 05:30 - Constitutional Appears: Non-toxic, No Acute Distress - Head Exam Head Exam: NORMAL INSPECTION - ENT Exam ENT Exam: Mucous Membranes Moist - Neck Exam Neck Exam: absent: Lymphadenopathy, Meningismus - Respiratory Exam Respiratory Exam: Decreased Breath Sounds - Cardiovascular Exam Cardiovascular Exam: +S1, +S2 - GI/Abdominal Exam GI & Abdominal Exam: Soft. absent: Tenderness Assessment and Plan - Assessment and Plan (Free Text) Plan: Assessment S/P Sepsis secondary to acute descending colon colitis, on top of chronic pancreatitis, with pseudocysts S/P drainage Coagulase negative staph in 1 of 4 sets, consider contamination alcoholism history of pancreatitis history of thoracic aneurysm S/P repair in 2014 dyslipidemia Plan continue to monitor off antibiotics since he is at risk for nosocomial infections
[2016-11-21 16:14] VITALS: PULSE 69; O2SAT 97
--- NOTE | 2016-11-21 17:28 | CP.PCM.PN ---
<SilvestreChetna - Last Filed: 11/21/16 17:30> Subjective - Date & Time of Evaluation Date of Evaluation: 11/21/16 Time of Evaluation: 09:10 - Subjective Subjective: Pt seen and evaluated at bedside. Pt denies n/v/abd pain. Reports eating. Afebrile overnight. Objective - Vital Signs/Intake and Output Vital Signs (last 24 hours): Temp Pulse Resp BP Pulse Ox 97 F L 69 18 128/72 97 11/21/16 16:13 11/21/16 16:13 11/21/16 16:13 11/21/16 16:13 11/21/16 16:13 Intake and Output: 11/21/16 11/21/16 06:59 18:59 Intake Total 240 840 Output Total 1150 150 Balance -910 690 - Medications Medications: Current Medications Acetaminophen (Tylenol 325mg Tab) 650 mg PO Q4H PRN PRN Reason: Fever >100.4 F Last Admin: 11/21/16 04:44 Dose: 650 mg Folic Acid (Folic Acid) 1 mg PO DAILY [facility] Last Admin: 11/21/16 10:33 Dose: 1 mg Iron Sucrose 200 mg/ Sodium (Chloride) 110 mls @ 110 mls/hr IVPB Q48H [facility] Last Admin: 11/20/16 08:55 Dose: 110 mls/hr Multivitamins (Thera Tab) 1 tab PO DAILY [facility] Last Admin: 11/21/16 10:33 Dose: 1 tab Ondansetron HCl (Zofran Inj) 4 mg IVP Q4 PRN PRN Reason: Nausea/Vomiting Last Admin: 11/19/16 22:16 Dose: 4 mg Pantoprazole Sodium (Protonix Inj) 40 mg IVP BID [facility] Last Admin: 11/21/16 10:33 Dose: 40 mg Thiamine HCl (Vitamin B1 Tab) 100 mg PO DAILY [facility] Last Admin: 11/21/16 10:33 Dose: 100 mg - Labs Labs: 11/21/16 10:00 11/21/16 10:00 PT 13.6 Seconds (9.9-11.8) H 11/12/16 05:30 INR 1.26 (0.93-1.08) H 11/12/16 05:30 APTT 35.8 Seconds (23.7-30.8) H 11/12/16 05:30 - Additional Findings Additional findings: - Constitutional Appears: Non-toxic, No Acute Distress - Head Exam Head Exam: ATRAUMATIC, NORMOCEPHALIC - Eye Exam Eye Exam: EOMI, PERRL - ENT Exam ENT Exam: Mucous Membranes Moist. absent: Normal Oropharynx (poor dentition) - Respiratory Exam Respiratory Exam: Clear to Ausculation Bilateral, NORMAL BREATHING PATTERN. absent: Rales, Rhonchi, Wheezes - Cardiovascular Exam Cardiovascular Exam: REGULAR RHYTHM, +S1, +S2. absent: Gallop, Rubs, Murmur - GI/Abdominal Exam GI & Abdominal Exam: Soft, Normal Bowel Sounds. absent: Tenderness - Extremities Exam Extremities Exam: Normal Inspection. absent: Pedal Edema, Tenderness - Neurological Exam Neurological Exam: Alert, Awake - Psychiatric Exam Psychiatric exam: Normal Affect, Normal Mood - Skin Skin Exam: Dry, Intact, Warm Assessment and Plan - Assessment and Plan (Free Text) Plan: 51 year old male with past medial history of Pancreatitis, ETOH abuse, Thoracic Aneurysm here with Abd pain. Found to have multiple pseudocysts. IR drainage of pseudocyst 10/14/2016 Plan: 1. Abd pain with Multiple large Psudocysts Repeat CT - Acute pancreatitis with large pancreatitic pseudocyst, pancreatic ductal dilatation; Pseudocysts in the wall of descending colon and stomach IR drainage consult, pseudocyst drainage 11/14/2016: 105 cc serosanguinous drained, repeat procedure in 5-7 days GI signed off, appreciate recs, recommended further studies at a [facility] for occult malignancy r/o Surgery following, appreciate recs, recommended EUS ABD CT with pancreatic protocol report shows decreased size of the psuedocyts GI altered diet 2. Hx of HTN Stable at this time Continue to monitor 3. Hx of thoracic/abdominal aneurysm Surgery states no surgical intervention at this time F/u with CardioThoracic surgeon who did the surgery. Cardiology following Echo: EF 61% 4. focal colitis on CT/elevated white count WBC: 12.4 yesterday, afebrile ABX D/C'd per ID body fluid cx negative growth, final blood culture from 11/07/16 shows coagulase negative staph, repeat Bcx negative at 96hrs blood culture from 11/10/16 negative growth after 5 days, final Stool culture negative Repeat cxs negative stool c diff studies negative Procalcitonin reordered, 0.65. as well as knox cultures ordered 5. EtOH/Substance abuse Urine tox : Opiate, Methadone + Thiamine, folic acid, and multivitamin Counseled on abstinence Methadone 100mg given today 6. Iron deficiency anemia serum Fe less than 10 and MCV in 70s Iron sucrose ordered 7. PPx SCDs protonix pending PT eval case seen and discussed with attending <Luis Manuel Orlando MD - Last Filed: 11/22/16 16:16> Objective - Vital Signs/Intake and Output Vital Signs (last 24 hours): Temp Pulse Resp BP Pulse Ox 98.3 F 69 20 126/75 97 11/22/16 07:48 11/22/16 07:48 11/22/16 07:48 11/22/16 07:48 11/22/16 07:48 Intake and Output: 11/22/16 11/22/16 06:59 18:59 Intake Total 840 600 Output Total 1200 200 Balance -360 400 - Labs Labs: 11/21/16 10:00 11/21/16 10:00 PT 13.6 Seconds (9.9-11.8) H 11/12/16 05:30 INR 1.26 (0.93-1.08) H 11/12/16 05:30 APTT 35.8 Seconds (23.7-30.8) H 11/12/16 05:30 Attending/Attestation - Attestation I have personally seen and examined this patient.: Yes I have fully participated in the care of the patient.: Yes I have reviewed all pertinent clinical information, including history, physical exam and plan: Yes Notes (Text): Patient was seen and examined with medical chemist .Agreed with resident assessment and plan. Patient abdominal pain is better, he is tolerating diet.Patient is still draining large amount of fluid in pancreatic drain, repeat CT scan showed improvement of pancreatic cyst. Patient case was discussed with Dr.Peter Street, at this plan is to discharge patient with drain, he will follow up with IR Dr.Peter Street in one week . Management plan was discussed in detail with patient Education was provided.
[2016-11-22 07:49] VITALS: BP 126/75; RESP 20; TEMP 98.3
[2016-11-22] MEDS: Multivitamin Therapeutic Tab PO SCH (09:27)
--- NOTE | 2016-11-22 09:44 | CP.PCM.PN ---
Subjective - Date & Time of Evaluation Date of Evaluation: 11/22/16 Time of Evaluation: 09:40 - Subjective Subjective: General Surgery Progress Note - Dr Gray Service Patient seen and examined. Patient remains afebrile. Tolerating diet. Urine output is adequate. Left anterior abdominal drain continues to drain non-bloody pancreatic fluid. Patient has no abdominal pain. Patient apparently will not be transferred to at this time. Objective - Vital Signs/Intake and Output Vital Signs (last 24 hours): Temp Pulse Resp BP Pulse Ox 98.3 F 69 20 126/75 97 11/22/16 07:48 11/22/16 07:48 11/22/16 07:48 11/22/16 07:48 11/22/16 07:48 Intake and Output: 11/22/16 11/22/16 06:59 18:59 Intake Total 840 Output Total 1200 Balance -360 - Medications Medications: Current Medications Acetaminophen (Tylenol 325mg Tab) 650 mg PO Q4H PRN PRN Reason: Fever >100.4 F Last Admin: 11/21/16 18:20 Dose: 650 mg Folic Acid (Folic Acid) 1 mg PO DAILY [facility] Last Admin: 11/22/16 09:27 Dose: 1 mg Iron Sucrose 200 mg/ Sodium (Chloride) 110 mls @ 110 mls/hr IVPB Q48H [facility] Last Admin: 11/22/16 09:26 Dose: 110 mls/hr Multivitamins (Thera Tab) 1 tab PO DAILY [facility] Last Admin: 11/22/16 09:27 Dose: 1 tab Ondansetron HCl (Zofran Inj) 4 mg IVP Q4 PRN PRN Reason: Nausea/Vomiting Last Admin: 11/19/16 22:16 Dose: 4 mg Pantoprazole Sodium (Protonix Inj) 40 mg IVP BID [facility] Last Admin: 11/22/16 09:27 Dose: 40 mg Thiamine HCl (Vitamin B1 Tab) 100 mg PO DAILY [facility] Last Admin: 11/22/16 09:27 Dose: 100 mg - Labs Labs: 11/21/16 10:00 11/21/16 10:00 PT 13.6 Seconds (9.9-11.8) H 11/12/16 05:30 INR 1.26 (0.93-1.08) H 11/12/16 05:30 APTT 35.8 Seconds (23.7-30.8) H 11/12/16 05:30 - Constitutional Appears: Non-toxic, No Acute Distress - Head Exam Head Exam: ATRAUMATIC, NORMOCEPHALIC - Eye Exam Eye Exam: EOMI, PERRL - ENT Exam ENT Exam: Mucous Membranes Moist - Neck Exam Neck Exam: Full ROM - Respiratory Exam Respiratory Exam: Clear to Ausculation Bilateral. absent: Rhonchi, Wheezes, Respiratory Distress - Cardiovascular Exam Cardiovascular Exam: REGULAR RHYTHM, +S1, +S2 - GI/Abdominal Exam GI & Abdominal Exam: Soft. absent: Distended, Firm, Tenderness Additional comments: left anterior abdominal IR drain in place, functioning - Extremities Exam Extremities Exam: Full ROM, Normal Inspection. absent: Calf Tenderness - Neurological Exam Neurological Exam: Alert, Awake, Oriented x3 - Psychiatric Exam Psychiatric exam: Normal Affect, Normal Mood - Skin Skin Exam: Normal Color, Warm Assessment and Plan - Assessment and Plan (Free Text) Assessment: 51M w/ pancreatic pseudocysts s/p IR drain day #7 - Monitor IR drain. Drain to remain at this time - transfer to [facility] denied - no surgical intervention at this time - will continue to follow Will BRANDYN Gray
--- NOTE | 2016-11-22 14:39 | CP.PCM.DIS ---
<Chetna Rivers - Last Filed: 12/28/16 06:37> Provider - Provider Date of Admission: 11/08/16 08:41 Attending physician: Luis Manuel Orlando MD Primary care physician: Unknown Consults: Cardiology: Lore, Surgery: Marina, GI: tanner Gonzáles, ID: Jeramy, IR: Gwyn Street Time Spent in preparation of Discharge (in minutes): 45 Hospital Course - Lab Results Lab Results: Micro Results 11/16/16 11:11 Blood Blood Culture - Final NO GROWTH AFTER 5 DAYS 11/16/16 11:11 Blood Gram Stain - Final TEST NOT PERFORMED 11/16/16 11:11 Blood Blood Culture - Final NO GROWTH AFTER 5 DAYS 11/16/16 11:11 Blood Gram Stain - Final TEST NOT PERFORMED 11/14/16 10:30 Other: Please Indicate Fungal Culture - Preliminary NO FUNGUS GROWTH IN 1 WEEK. 11/18/16 17:35 Sputum Gram Stain - Final 11/18/16 17:35 Sputum Sputum Culture - Final Yeast Species 11/14/16 10:30 Other: Please Indicate Gram Stain - Final 11/14/16 10:30 Other: Please Indicate Body Fluid Culture - Final No growth. 11/16/16 13:00 Stool C. difficile Antigen & Toxin A,B (M - Final 11/16/16 13:45 Urine Urine Culture - Final No Growth (<1,000 CFU/ML) 11/14/16 10:30 Other: Please Indicate Anaerobic Culture - Final NO ANAEROBES ISOLATED. 11/10/16 07:30 Blood-Venous Blood Culture - Final NO GROWTH AFTER 5 DAYS 11/10/16 07:30 Blood-Venous Gram Stain - Final TEST NOT PERFORMED 11/10/16 07:00 Blood-Venous Blood Culture - Final NO GROWTH AFTER 5 DAYS 11/10/16 07:00 Blood-Venous Gram Stain - Final TEST NOT PERFORMED 11/10/16 21:30 Naris MRSA Culture (Admit) - Final MRSA NOT DETECTED 11/09/16 11:56 Stool Stool Culture - Final NO SALMONELLA, SHIGELLA OR CAMPYLOBACTER ISOLATED. 11/09/16 11:56 Stool Ova and Parasite Concentrate Exam - Final 11/09/16 11:56 Stool C. difficile Antigen & Toxin A,B (M - Final Most Recent Lab Values WBC 10.3 10^3/ul (4.5-11.0) 11/21/16 10:00 RBC 3.56 10^6/uL (3.5-6.1) 11/21/16 10:00 Hgb 9.3 gm/dL (14.0-18.0) L 11/21/16 10:00 Hct 26.5 % (42.0-52.0) L 11/21/16 10:00 MCV 74.4 fL (80.0-105.0) L 11/21/16 10:00 MCH 26.1 pg (25.0-35.0) 11/21/16 10:00 MCHC 35.1 g/dl (31.0-37.0) 11/21/16 10:00 RDW 16.1 % (11.5-14.5) H 11/21/16 10:00 Plt Count 310 10^3/uL (120.0-450.0) 11/21/16 10:00 MPV 9.2 fl (7.0-11.0) 11/21/16 10:00 Gran % 67.5 % (50.0-68.0) 11/21/16 10:00 Lymph % (Auto) 21.4 % (22.0-35.0) L 11/21/16 10:00 Posey % (Auto) 8.4 % (1.0-6.0) H 11/21/16 10:00 Eos % (Auto) 2.1 % (1.5-5.0) 11/21/16 10:00 Baso % (Auto) 0.6 % (0.0-3.0) 11/21/16 10:00 Gran # 6.92 (1.4-6.5) H 11/21/16 10:00 Lymph # 2.2 (1.2-3.4) 11/21/16 10:00 Posey # 0.9 (0.1-0.6) H 11/21/16 10:00 Eos # 0.2 (0.0-0.7) 11/21/16 10:00 Baso # 0.06 K/mm3 (0.0-2.0) 11/21/16 10:00 PT 13.6 Seconds (9.9-11.8) H 11/12/16 05:30 INR 1.26 (0.93-1.08) H 11/12/16 05:30 APTT 35.8 Seconds (23.7-30.8) H 11/12/16 05:30 pO2 30 mm/Hg (30-55) 11/11/16 17:47 VBG pH 7.41 (7.32-7.43) 11/11/16 17:47 VBG pCO2 48.0 (40-60) 11/11/16 17:47 VBG HCO3 30.4 mmol/l (21-28) H 11/11/16 17:47 VBG Total CO2 31.9 mmol.L (22-28) H 11/11/16 17:47 VBG O2 Sat (Calc) 53.3 % (40-65) 11/11/16 17:47 VBG Base Excess 4.8 mmol/L (0.0-2.0) H 11/11/16 17:47 VBG Potassium 4.0 mmol/L (3.6-5.2) 11/11/16 17:47 Sodium 133.0 mmol/L (132-148) 11/11/16 17:47 Chloride 101.0 mmol/L (98-107) 11/11/16 17:47 Glucose 100 mg/dl (75-110) 11/11/16 17:47 Lactate 1.6 mmol/L (0.7-2.1) 11/11/16 17:47 FiO2 21.0 % 11/11/16 17:47 Sodium 136 mmol/L (132-148) 11/21/16 10:00 Potassium 4.4 mmol/L (3.6-5.0) 11/21/16 10:00 Chloride 102 mmol/L (98-107) 11/21/16 10:00 Carbon Dioxide 26 mmol/L (21-33) 11/21/16 10:00 Anion Gap 12 (10-20) 11/21/16 10:00 BUN 6 mg/dL (7-21) L 11/21/16 10:00 Creatinine 0.6 mg/dL (0.5-1.4) 11/21/16 10:00 Est GFR ( Amer) > 60 11/21/16 10:00 Est GFR (Non-Af Amer) > 60 11/21/16 10:00 POC Glucose (mg/dL) 127 mg/dL (65-110) H 11/22/16 11:11 Random Glucose 80 mg/dL (70-110) 11/21/16 10:00 Hemoglobin A1c 4.6 % (4.2-6.5) 11/07/16 07:50 Serum Osmolality 277 mosm/kg (271-296) 11/07/16 05:30 Calcium 8.9 mg/dL (8.4-10.5) 11/21/16 10:00 Phosphorus 4.9 mg/dL (2.5-4.5) H 11/14/16 06:45 Magnesium 1.8 mg/dL (1.7-2.2) 11/14/16 06:45 Iron < 10 ug/dL (45-180) L 11/07/16 05:30 TIBC 191 ug/dL (261-462) L 11/07/16 05:30 % Saturation TNP 11/07/16 05:30 Transferrin 129.01 mg/dL (206-381) L 11/07/16 05:50 Ferritin 938.0 ng/mL 11/07/16 05:30 Total Bilirubin 0.3 mg/dL (0.2-1.3) 11/21/16 10:00 AST 33 U/L (15-59) 11/21/16 10:00 ALT 32 U/L (7-56) 11/21/16 10:00 Alkaline Phosphatase 162 U/L (38-133) H 11/21/16 10:00 Lactate Dehydrogenase 558 U/L (333-699) 11/07/16 02:20 Total Creatine Kinase 54 U/L (35-230) 11/07/16 02:20 Troponin I 0.02 ng/mL 11/07/16 17:14 C-React Prot High Sens > 15.00 mg/L (1.00-3.00) H 11/07/16 05:30 Total Protein 7.0 g/dL (5.8-8.3) 11/21/16 10:00 Albumin 2.9 g/dL (3.0-4.8) L 11/21/16 10:00 Globulin 4.2 gm/dL 11/21/16 10:00 Albumin/Globulin Ratio 0.7 (1.1-1.8) L 11/21/16 10:00 Triglycerides 49 mg/dL (35-160) 11/07/16 05:30 Cholesterol 91 mg/dL (130-200) L 11/07/16 05:30 LDL Cholesterol Direct 45 mg/dL (0-129) 11/07/16 05:30 HDL Cholesterol 36 mg/dL (29-60) 11/07/16 05:30 Amylase 338 U/L (35-125) H 11/15/16 06:00 Lipase 105 U/L (23-300) 11/22/16 10:40 Procalcitonin 0.65 NG/ML (0.19-0.49) H 11/16/16 08:00 Venous Blood Potassium 4.0 mmol/L (3.6-5.2) 11/11/16 17:47 Urine Color Straw (YELLOW) 11/16/16 13:45 Urine Appearance Clear (CLEAR) 11/16/16 13:45 Urine pH 7.0 (4.7-8.0) 11/16/16 13:45 Ur Specific [place] <= 1.005 (1.005-1.035) 11/16/16 13:45 Urine Protein Negative mg/dL (<30 mg/dL) 11/16/16 13:45 Urine Glucose (UA) Negative mg/dL (NEGATIVE) 11/16/16 13:45 Urine Ketones Negative mg/dL (NEGATIVE) 11/16/16 13:45 Urine Blood Negative (NEGATIVE) 11/16/16 13:45 Urine Nitrate Negative (NEGATIVE) 11/16/16 13:45 Urine Bilirubin Negative (NEGATIVE) 11/16/16 13:45 Urine Urobilinogen 0.2 E.U./dL (<1 E.U./dL) 11/16/16 13:45 Ur Leukocyte Esterase Negative Singh/uL (NEGATIVE) 11/16/16 13:45 Urine RBC 0 - 2 /hpf (0-2) 11/07/16 05:00 Urine WBC 0 - 2 /hpf (0-6) 11/07/16 05:00 Ur Epithelial Cells 0 - 2 /hpf (0-5) 11/07/16 05:00 Urine Bacteria Rare (NEG) 11/07/16 05:00 Urine Other Usperm 11/07/16 05:00 Urine Osmolality 780 mosm/kg (50-645) H 11/07/16 12:00 Ur Random Creatinine 315 mg/dL 11/08/16 19:47 Ur Random Sodium 58 meq/L 11/07/16 12:00 Urine Chloride 21 mmol/L (32-290) L 11/07/16 12:00 Stool Occult Blood Negative (NEGATIVE) 11/09/16 11:56 Urine Opiates Screen Positive (NEGATIVE) H 11/08/16 19:47 Urine Methadone Screen Positive (NEGATIVE) H 11/08/16 19:47 Ur Barbiturates Screen Negative (NEGATIVE) 11/08/16 19:47 Ur Phencyclidine Scrn Negative (NEGATIVE) 11/08/16 19:47 Ur Amphetamines Screen Negative (NEGATIVE) 11/08/16 19:47 U Benzodiazepines Scrn Negative (NEGATIVE) 11/08/16 19:47 U Oth Cocaine Metabols Negative (NEGATIVE) 11/08/16 19:47 U Cannabinoids Screen Negative (NEGATIVE) 11/08/16 19:47 Alcohol, Quantitative < 10 mg/dL (0-10) 11/07/16 06:22 HIV 1&2 Ag/Ab, 4th Gen Nonreactive (Nonreactive) 11/10/16 09:58 - Hospital Course Hospital Course: This is a 50 yo male with pmhx alcoholism, pancreatitis and thoracic aneurysm presenting with abdominal pain x 2 day. Pt began suddenly 2 days ago while pt was lying in bed. 1 episode for melena at home. CT without contrast: Thoracic and abdominal aortic aneurysm/dissection s/p repair unchanged since previous imaging, moder sabra-hepatic/splenic scites, colitis of rectum and splenic flexure. WBC 12.2, trop negative, low iron and TIBC. mildly elevated amylase and lipase. Transfer to the floor for pancreatitis. On floor, pt treated with IV fluids and diet was advanced as tolerated for pancreatitis, with pain control. For colitis, pt received abx and repeat knox cultures, cdiff toxin (neg again). After advancing to solid foods, pt vomited non-billious and non-bloody, and had three episodes of diarrhea, repeat abd CT showed new multiple large pseudocysts with pancreatic ductal dilation, not previously seen on prior study three days prior. IR consulted for drainage, and 100cc serosanguinous fluid drained, w/fluid sent for culture. PPN administered and and diet advanced as tolerated. Repeat pancreatic CT showed significant improvement of pseudocysts. Pancreatic drain to remain upon discharge. Pt tolerating solid diet and passing gas and BM upon discharge. Pt d/c home in stable condition with following instructions: You is discharged home. You are instructed to change the pancreatic drain bag and flush it, please do as you were directed as your nurse taught you. Please keep a daily record of the amount drained with you when you see Dr. Gwyn Srteet within one week. Please also follow up with Dr. Posada within a week. Please resume home medications and take new medications as directed (new medications of colace 100mg PO prn, ferrrous sulfate 47.5 mg PO BID, folic acid 1mg po qd, multivitamin by mouth daily, thiamine 100mg PO qd). Please return to emergency department for worsening of symptoms. Please follow up with your primary doctor within two weeks . Discharge Exam - Head Exam Head Exam: ATRAUMATIC, NORMOCEPHALIC - Eye Exam Eye Exam: EOMI, Normal appearance Pupil Exam: NORMAL ACCOMODATION, PERRL - Respiratory Exam Respiratory Exam: NORMAL BREATHING PATTERN, UNREMARKABLE - Cardiovascular Exam Cardiovascular Exam: +S1, +S2. absent: Bradycardia - GI/Abdominal Exam GI & Abdominal Exam: Soft. absent: Tenderness Additional comments: L abdominal drain with dark brown discharge - Exam External exam: absent: Ecchymosis, Erythema - Extremities Exam Extremities exam: normal capillary refill, pedal pulses present - Neurological Exam Neurological exam: Alert, Oriented x3 - Psychiatric Exam Psychiatric exam: Normal Affect, Normal Mood - Skin Skin Exam: Intact, Warm Discharge Plan - Discharge Medications Prescriptions: Docusate [Colace] 100 mg PO PRN PRN #7 cap PRN Reason: Constipation Folic Acid 1 mg PO DAILY #14 tab Ferrous Sulfate [Slow Release Iron] 47.5 mg PO BID #28 tablet.er Multivitamin Therapeutic Tab [Thera Tab] 1 tab PO DAILY #14 tab Thiamine [Vitamin B1 Tab] 100 mg PO DAILY #14 tab - Follow Up Plan Condition: FAIR Disposition: HOME/ ROUTINE Instructions: Pancreatitis (DC) Additional Instructions: You is discharged home. You are instructed to change the pancreatic drain bag and flush it, please do as you were directed as your nurse taught you. Please keep a daily record of the amount drained with you when you see Dr. Gwyn Street within one week. Please also follow up with Dr. Posada within a week. Please resume home medications and take new medications as directed. Please return to emergency department for worsening of symptoms. Please follow up with your primary doctor within two weeks . Referrals: Gwyn Street MD [Staff Provider] - Tr Posada DO [Staff Provider] - <Luis Manuel Orlando MD - Last Filed: 01/02/17 10:51> Provider - Provider Date of Admission: 11/08/16 08:41 Attending physician: Luis Manuel Orlando MD Hospital Course - Lab Results Lab Results: Micro Results 11/14/16 10:30 Other: Please Indicate Fungal Culture - Final NO FUNGUS GROWTH IN 4 WEEKS. 11/16/16 11:11 Blood Blood Culture - Final NO GROWTH AFTER 5 DAYS 11/16/16 11:11 Blood Gram Stain - Final TEST NOT PERFORMED 11/16/16 11:11 Blood Blood Culture - Final NO GROWTH AFTER 5 DAYS 11/16/16 11:11 Blood Gram Stain - Final TEST NOT PERFORMED 11/18/16 17:35 Sputum Gram Stain - Final 11/18/16 17:35 Sputum Sputum Culture - Final Yeast Species 11/14/16 10:30 Other: Please Indicate Gram Stain - Final 11/14/16 10:30 Other: Please Indicate Body Fluid Culture - Final No growth. 11/16/16 13:00 Stool C. difficile Antigen & Toxin A,B (M - Final 11/16/16 13:45 Urine Urine Culture - Final No Growth (<1,000 CFU/ML) 11/14/16 10:30 Other: Please Indicate Anaerobic Culture - Final NO ANAEROBES ISOLATED. 11/10/16 07:30 Blood-Venous Blood Culture - Final NO GROWTH AFTER 5 DAYS 11/10/16 07:30 Blood-Venous Gram Stain - Final TEST NOT PERFORMED 11/10/16 07:00 Blood-Venous Blood Culture - Final NO GROWTH AFTER 5 DAYS 11/10/16 07:00 Blood-Venous Gram Stain - Final TEST NOT PERFORMED 11/10/16 21:30 Naris MRSA Culture (Admit) - Final MRSA NOT DETECTED 11/09/16 11:56 Stool Stool Culture - Final NO SALMONELLA, SHIGELLA OR CAMPYLOBACTER ISOLATED. 11/09/16 11:56 Stool Ova and Parasite Concentrate Exam - Final 11/09/16 11:56 Stool C. difficile Antigen & Toxin A,B (M - Final Most Recent Lab Values WBC 10.3 10^3/ul (4.5-11.0) 11/21/16 10:00 RBC 3.56 10^6/uL (3.5-6.1) 11/21/16 10:00 Hgb 9.3 gm/dL (14.0-18.0) L 11/21/16 10:00 Hct 26.5 % (42.0-52.0) L 11/21/16 10:00 MCV 74.4 fL (80.0-105.0) L 11/21/16 10:00 MCH 26.1 pg (25.0-35.0) 11/21/16 10:00 MCHC 35.1 g/dl (31.0-37.0) 11/21/16 10:00 RDW 16.1 % (11.5-14.5) H 11/21/16 10:00 Plt Count 310 10^3/uL (120.0-450.0) 11/21/16 10:00 MPV 9.2 fl (7.0-11.0) 11/21/16 10:00 Gran % 67.5 % (50.0-68.0) 11/21/16 10:00 Lymph % (Auto) 21.4 % (22.0-35.0) L 11/21/16 10:00 Posey % (Auto) 8.4 % (1.0-6.0) H 11/21/16 10:00 Eos % (Auto) 2.1 % (1.5-5.0) 11/21/16 10:00 Baso % (Auto) 0.6 % (0.0-3.0) 11/21/16 10:00 Gran # 6.92 (1.4-6.5) H 11/21/16 10:00 Lymph # 2.2 (1.2-3.4) 11/21/16 10:00 Posey # 0.9 (0.1-0.6) H 11/21/16 10:00 Eos # 0.2 (0.0-0.7) 11/21/16 10:00 Baso # 0.06 K/mm3 (0.0-2.0) 11/21/16 10:00 PT 13.6 Seconds (9.9-11.8) H 11/12/16 05:30 INR 1.26 (0.93-1.08) H 11/12/16 05:30 APTT 35.8 Seconds (23.7-30.8) H 11/12/16 05:30 pO2 30 mm/Hg (30-55) 11/11/16 17:47 VBG pH 7.41 (7.32-7.43) 11/11/16 17:47 VBG pCO2 48.0 (40-60) 11/11/16 17:47 VBG HCO3 30.4 mmol/l (21-28) H 11/11/16 17:47 VBG Total CO2 31.9 mmol.L (22-28) H 11/11/16 17:47 VBG O2 Sat (Calc) 53.3 % (40-65) 11/11/16 17:47 VBG Base Excess 4.8 mmol/L (0.0-2.0) H 11/11/16 17:47 VBG Potassium 4.0 mmol/L (3.6-5.2) 11/11/16 17:47 Sodium 133.0 mmol/L (132-148) 11/11/16 17:47 Chloride 101.0 mmol/L (98-107) 11/11/16 17:47 Glucose 100 mg/dl (75-110) 11/11/16 17:47 Lactate 1.6 mmol/L (0.7-2.1) 11/11/16 17:47 FiO2 21.0 % 11/11/16 17:47 Sodium 136 mmol/L (132-148) 11/21/16 10:00 Potassium 4.4 mmol/L (3.6-5.0) 11/21/16 10:00 Chloride 102 mmol/L (98-107) 11/21/16 10:00 Carbon Dioxide 26 mmol/L (21-33) 11/21/16 10:00 Anion Gap 12 (10-20) 11/21/16 10:00 BUN 6 mg/dL (7-21) L 11/21/16 10:00 Creatinine 0.6 mg/dL (0.5-1.4) 11/21/16 10:00 Est GFR ( Amer) > 60 11/21/16 10:00 Est GFR (Non-Af Amer) > 60 11/21/16 10:00 POC Glucose (mg/dL) 127 mg/dL (65-110) H 11/22/16 11:11 Random Glucose 80 mg/dL (70-110) 11/21/16 10:00 Hemoglobin A1c 4.6 % (4.2-6.5) 11/07/16 07:50 Serum Osmolality 277 mosm/kg (271-296) 11/07/16 05:30 Calcium 8.9 mg/dL (8.4-10.5) 11/21/16 10:00 Phosphorus 4.9 mg/dL (2.5-4.5) H 11/14/16 06:45 Magnesium 1.8 mg/dL (1.7-2.2) 11/14/16 06:45 Iron < 10 ug/dL (45-180) L 11/07/16 05:30 TIBC 191 ug/dL (261-462) L 11/07/16 05:30 % Saturation TNP 11/07/16 05:30 Transferrin 129.01 mg/dL (206-381) L 11/07/16 05:50 Ferritin 938.0 ng/mL 11/07/16 05:30 Total Bilirubin 0.3 mg/dL (0.2-1.3) 11/21/16 10:00 AST 33 U/L (15-59) 11/21/16 10:00 ALT 32 U/L (7-56) 11/21/16 10:00 Alkaline Phosphatase 162 U/L (38-133) H 11/21/16 10:00 Lactate Dehydrogenase 558 U/L (333-699) 11/07/16 02:20 Total Creatine Kinase 54 U/L (35-230) 11/07/16 02:20 Troponin I 0.02 ng/mL 11/07/16 17:14 C-React Prot High Sens > 15.00 mg/L (1.00-3.00) H 11/07/16 05:30 Total Protein 7.0 g/dL (5.8-8.3) 11/21/16 10:00 Albumin 2.9 g/dL (3.0-4.8) L 11/21/16 10:00 Globulin 4.2 gm/dL 11/21/16 10:00 Albumin/Globulin Ratio 0.7 (1.1-1.8) L 11/21/16 10:00 Triglycerides 49 mg/dL (35-160) 11/07/16 05:30 Cholesterol 91 mg/dL (130-200) L 11/07/16 05:30 LDL Cholesterol Direct 45 mg/dL (0-129) 11/07/16 05:30 HDL Cholesterol 36 mg/dL (29-60) 11/07/16 05:30 Amylase 338 U/L (35-125) H 11/15/16 06:00 Lipase 105 U/L (23-300) 11/22/16 10:40 Procalcitonin 0.65 NG/ML (0.19-0.49) H 11/16/16 08:00 Venous Blood Potassium 4.0 mmol/L (3.6-5.2) 11/11/16 17:47 Urine Color Straw (YELLOW) 11/16/16 13:45 Urine Appearance Clear (CLEAR) 11/16/16 13:45 Urine pH 7.0 (4.7-8.0) 11/16/16 13:45 Ur Specific [place] <= 1.005 (1.005-1.035) 11/16/16 13:45 Urine Protein Negative mg/dL (<30 mg/dL) 11/16/16 13:45 Urine Glucose (UA) Negative mg/dL (NEGATIVE) 11/16/16 13:45 Urine Ketones Negative mg/dL (NEGATIVE) 11/16/16 13:45 Urine Blood Negative (NEGATIVE) 11/16/16 13:45 Urine Nitrate Negative (NEGATIVE) 11/16/16 13:45 Urine Bilirubin Negative (NEGATIVE) 11/16/16 13:45 Urine Urobilinogen 0.2 E.U./dL (<1 E.U./dL) 11/16/16 13:45 Ur Leukocyte Esterase Negative Singh/uL (NEGATIVE) 11/16/16 13:45 Urine RBC 0 - 2 /hpf (0-2) 11/07/16 05:00 Urine WBC 0 - 2 /hpf (0-6) 11/07/16 05:00 Ur Epithelial Cells 0 - 2 /hpf (0-5) 11/07/16 05:00 Urine Bacteria Rare (NEG) 11/07/16 05:00 Urine Other Usperm 11/07/16 05:00 Urine Osmolality 780 mosm/kg (50-645) H 11/07/16 12:00 Ur Random Creatinine 315 mg/dL 11/08/16 19:47 Ur Random Sodium 58 meq/L 11/07/16 12:00 Urine Chloride 21 mmol/L (32-290) L 11/07/16 12:00 Stool Occult Blood Negative (NEGATIVE) 11/09/16 11:56 Urine Opiates Screen Positive (NEGATIVE) H 11/08/16 19:47 Urine Methadone Screen Positive (NEGATIVE) H 11/08/16 19:47 Ur Barbiturates Screen Negative (NEGATIVE) 11/08/16 19:47 Ur Phencyclidine Scrn Negative (NEGATIVE) 11/08/16 19:47 Ur Amphetamines Screen Negative (NEGATIVE) 11/08/16 19:47 U Benzodiazepines Scrn Negative (NEGATIVE) 11/08/16 19:47 U Oth Cocaine Metabols Negative (NEGATIVE) 11/08/16 19:47 U Cannabinoids Screen Negative (NEGATIVE) 11/08/16 19:47 Alcohol, Quantitative < 10 mg/dL (0-10) 11/07/16 06:22 HIV 1&2 Ag/Ab, 4th Gen Nonreactive (Nonreactive) 11/10/16 09:58 Attending/Attestation - Attestation I have personally seen and examined this patient.: Yes I have fully participated in the care of the patient.: Yes I have reviewed all pertinent clinical information, including history, physical exam and plan: Yes Notes (Text): 01/02/17 10:48 Patient was seen and examined with biomedical engineering internship .Agreed with resident assessment and plan. 51 year old male with past medical history of alcohol abuse, substance abuse and pancreatitis who presented with abdominal pain. He was found to have large pancreatic pseudocyst and colitis on CT abd/pelvis. He underwent IR drainage last week. Clinically he has been doing well over the past few days and his antibiotics were discontinued. Patient abdominal pain is better, he is tolerating diet.Patient is still draining large amount of fluid in pancreatic drain, repeat CT scan showed improvement of pancreatic cyst. Patient case was discussed with Dr.Peter Street, at this time, patient will be discharged home with drains and , he will follow up with IR Dr.Peter Street in one week . The issue of chronic alcohol abuse was discussed in detail with patient. Management plan was discussed in detail with patient Education was provided. 01/02/17 10:50
== END 2016-11-22 15:57 | disposition home or self-care (01) | DRG 581 ==
LOC: ED 01:53 → ERH 03:16 → 2RSO 11-08 05:23 → OBSVTOIN 11-08 08:41 → CCU 11-10 21:14 → 2RNO 11-12 09:55 → 5RSO 11-16 16:38
PROVIDERS: ADMIT Hospitalist; ATTEND Internal Medicine
PROC: 0F9G30Z Drainage of Pancreas with Drainage Device, Percutaneous Approach (ICD-10-PCS; principal; 2016-11-14 09:00)
DX: A41.1 Sepsis due to other specified staphylococcus (principal); K85.20 Alcohol induced acute pancreatitis without necrosis or infection; K52.9 Noninfective gastroenteritis and colitis, unspecified; K86.3 Pseudocyst of pancreas; I71.02 Dissection of abdominal aorta; R18.8 Other ascites; F11.20 Opioid dependence, uncomplicated; K86.1 Other chronic pancreatitis; E87.6 Hypokalemia; I10 Essential (primary) hypertension; F10.20 Alcohol dependence, uncomplicated; D50.9 Iron deficiency anemia, unspecified; E78.5 Hyperlipidemia, unspecified; F17.210 Nicotine dependence, cigarettes, uncomplicated; G89.4 Chronic pain syndrome; I73.9 Peripheral vascular disease, unspecified; Z79.891 Long term (current) use of opiate analgesic; Z91.19 Patient's noncompliance with other medical treatment and regimen

== ENCOUNTER 2017-05-18 08:41 | Inpatient (IN) | payer OTHER ==
[2017-05-18 09:00] VITALS: BMI 18.8
[2017-05-18] MEDS ORDERED: Sodium Chloride 0.9% 1,000 ML IV STA (09:24)
--- NOTE | 2017-05-18 09:28 | ED PDOC ---
Arrival/HPI <Usama Kang - Last Filed: 05/18/17 11:06> <Julia Castañeda - Last Filed: 05/18/17 16:10> - General Chief Complaint: Chest Pain Time Seen by Provider: 05/18/17 08:57 - History of Present Illness Narrative History of Present Illness (Text): 51 year old male with a history of alcohol abuse, substance abuse, chronic pancreatitis, and chronic aortic dissection s/p repair who presents with diffuse, non-localized abdominal pain and vomiting after drinking a pint of Kalie last night. He denies any epigastric pain, hematemesis, hematochezia, diarrhea, constipation, jaundice, or pruritus. He denies any syncope, claudication, or unilateral sensory loss or weakness. 05/18/17 09:27 (Julia Castañeda) Past Medical History - Provider Review Nursing Documentation Reviewed: Yes - Infectious Disease Hx of Infectious Diseases: None - Tetanus Immunization Tetanus Immunization: Unknown - Cardiac Hx Cardiac Disorders: Yes Hx Hypertension: Yes Other/Comment: AORTIC ANEURYSM - Pulmonary Hx Respiratory Disorders: No - Neurological Hx Neurological Disorder: No - HEENT Hx HEENT Disorder: No - Renal Hx Renal Disorder: No - Endocrine/Metabolic Hx Endocrine Disorders: No - Hematological/Oncological Hx Blood Disorders: Yes Hx Anemia: Yes - Integumentary Hx Dermatological Disorder: No - Musculoskeletal/Rheumatological Hx Musculoskeletal Disorders: Yes Hx Arthritis: Yes - Gastrointestinal Hx Gastrointestinal Disorders: No - Genitourinary/Gynecological Hx Genitourinary Disorders: No - Psychiatric Hx Psychophysiologic Disorder: No Hx Substance Use: No (pt denies) - Past Surgical History Past Surgical History: No Previous - Surgical History Hx Abdominal Aortic Aneurysm Repair: Yes Hx Open Heart Surgery: Yes - Anesthesia Hx Anesthesia: Yes Hx Anesthesia Reactions: No Hx Malignant Hyperthermia: No - Suicidal Assessment Feels Threatened In Home Enviroment: No <Julia Castañeda - Last Filed: 05/18/17 16:10> Family/Social History - Physician Review Nursing Documentation Reviewed: Yes Family/Social History: No Known Family HX Smoking Status: Heavy Smoker > 10 Cigarettes Daily Hx Alcohol Use: Yes Frequency of alcohol use: Daily Hx Substance Use: No (pt denies) Substance used: heroin Hx Substance Use Treatment: Yes <Julia Castañeda - Last Filed: 05/18/17 16:10> Allergies/Home Meds <Usama Kang - Last Filed: 05/18/17 11:06> <Julia Castañeda - Last Filed: 05/18/17 16:10> Allergies/Adverse Reactions: Allergies No Known Allergies Allergy (Verified 05/18/17 08:53) Home Medications: Home Meds Medication Instructions Recorded Confirmed Unobtainable 05/18/17 05/18/17 Review of Systems - Review of Systems Constitutional: Other (chills). absent: Fatigue, Weight Change Eyes: Normal. absent: Vision Changes, Photophobia ENT: Normal. absent: Sore Throat, Rhinorrhea Respiratory: Normal, Cough. absent: SOB, Sputum Cardiovascular: Normal. absent: Chest Pain Gastrointestinal: Abdominal Pain, Nausea, Vomiting. absent: Constipation, Diarrhea, Hematochezia, Hematemesis Genitourinary Male: absent: Dysuria, Frequency, Hematuria Musculoskeletal: absent: Back Pain, Neck Pain, Joint Swelling Skin: absent: Pruritis Neurological: Normal. absent: Headache, Dizziness, Focal Weakness Endocrine: absent: Diaphoresis, Polyuria, Polydipsia Hemo/Lymphatic: absent: Easy Bleeding, Easy Bruising Psychiatric: absent: Anxiety, Depression <Julia Castañeda - Last Filed: 05/18/17 16:10> Physical Exam Vital Signs Reviewed: Yes <Usama Kang - Last Filed: 05/18/17 11:06> Temperature: Afebrile Blood Pressure: Hypertensive Pulse: Regular Respiratory Rate: Normal Appearance: Positive for: Non-Toxic Pain Distress: Mild Mental Status: Positive for: Alert and Oriented X 3 - Systems Exam Head: Present: Atraumatic, Normocephalic Pupils: Present: PERRL Conjunctiva: Present: Injected Mouth: Present: Dry. No: Trismus Respiratory/Chest: Present: Clear to Auscultation, Good Air Exchange. No: Respiratory Distress, Accessory Muscle Use Cardiovascular: Present: Regular Rate and Rhythm, Normal S1, S2 Abdomen: Present: Tenderness (patient does not exhibit pain to superficial or deep palpation of the abdomen, no organomegaly appreciated), Normal Bowel Sounds. No: Distention, Rebound Back: Present: Normal Inspection. No: CVA Tenderness Neurological: Present: CN II-XII Intact, Speech Normal, Motor Func Grossly Intact Skin: Present: Warm, Normal Color Psychiatric: Present: Alert, Oriented x 3, Normal Insight <Julia Castañeda - Last Filed: 05/18/17 16:10> Vital Signs Temp Pulse Resp BP Pulse Ox 05/18/17 11:14 98.9 F 75 18 138/68 97 05/18/17 08:59 99.2 F 81 18 151/90 H 99 Medical Decision Making <Usama Kang - Last Filed: 05/18/17 11:06> <Julia Castañeda - Last Filed: 05/18/17 16:10> ED Course and Treatment: A 51 year old male with abdominal pain. In agreement with resident note, which includes further HPI details. Patient was seen and evaluated with resident, came up with plan and treatment together. (Usama Kang) Glucose noted to be in the 30s, POC fingerstick blood glucose level ordered as well as 100 mg of IM Thiamine followed by 50 ml of 50% dextrose. Magnesium noted in 1.5 mg, 1 gm IV administered. 05/18/17 10:36 (Julia Castañeda) - Lab Interpretations Lab Results: 05/18/17 09:15 05/18/17 09:15 Lab Results 05/18/17 10:35: Urine Color Yellow, Urine Appearance Sl cloudy, Urine pH 6.0, Ur Specific Shepherd >= 1.030, Urine Protein 30 H, Urine Glucose (UA) Negative, Urine Ketones >=80, Urine Blood Negative, Urine Nitrate Negative, Urine Bilirubin Negative, Urine Urobilinogen 1.0 H, Ur Leukocyte Esterase Negative, Urine RBC 0 - 2, Urine WBC 0 - 2, Urine Other Mucus 05/18/17 09:15: Triglycerides 57, Cholesterol 223 H, LDL Cholesterol Direct 63, HDL Cholesterol 156 H 05/18/17 09:15: Alcohol, Quantitative 23 H 05/18/17 09:15: WBC 8.1 D, RBC 4.95, Hgb 13.6 L, Hct 37.5 L, MCV 75.8 L, MCH 27.5, MCHC 36.3, RDW 18.2 H, Plt Count 104 L, MPV 10.3, Gran % 79.4 H, Lymph % ( Auto) 15.8 L, [place] % (Auto) 4.3, Eos % (Auto) 0.1 L, Baso % (Auto) 0.4, Gran # 6.40, Lymph # 1.3, [place] # 0.4, Eos # 0.0, Baso # 0.03 05/18/17 09:15: Sodium 144, Potassium 4.1, Chloride 98, Carbon Dioxide 25, Anion Gap 25 H, BUN 14, Creatinine 0.6 L, Est GFR ( Amer) > 60, Est GFR ( Non-Af Amer) > 60, Random Glucose 38 L* D, Calcium 9.6, Magnesium 1.5 L, Total Bilirubin 1.0, AST 198 H, ALT 109 H, Alkaline Phosphatase 114, Lactate Dehydrogenase 745 H, Total Creatine Kinase 86, Troponin I < 0.01 D, Total Protein 7.8, Albumin 4.6, Globulin 3.2, Albumin/Globulin Ratio 1.4, Lipase 367 H - RAD Interpretation Radiology Orders: 05/18/17 10:21 ANGIOGRAPHY DISECTION PROTOCOL [CT] Stat - Medication Orders Current Medication Orders: Folic Acid (Folic Acid) 1 mg PO DAILY CESAR Lactated Ringer's (Lactated Ringer's) 1,000 mls @ 200 mls/hr IV .Q5H CESAR Lorazepam (Ativan) 2 mg IVP Q2H PRN; Protocol PRN Reason: Symptoms of alcohol withdrawl Lorazepam (Ativan) 2 mg IVP Q6 CESAR PRN Reason: Protocol Morphine Sulfate (Morphine) 1 mg IVP Q4H PRN PRN Reason: Pain, moderate (4-7) Multivitamins (Thera Tab) 1 tab PO 0800 CESAR Thiamine HCl (Vitamin B1 Tab) 100 mg PO DAILY CESAR Discontinued Medications Dextrose (Dextrose 50% Inj) 50 ml IVP STAT STA Stop: 05/18/17 10:17 Last Admin: 05/18/17 10:20 Dose: 50 ml IVP Administration Document 05/18/17 10:20 AK (Rec: 05/18/17 10:41 AK [id number]) Charges for Administration # of IVP Administrations 1 Sodium Chloride (Sodium Chloride 0.9%) 1,000 mls @ 999 mls/hr IV .Q1H1M STA Stop: 05/18/17 10:24 Last Admin: 05/18/17 10:13 Dose: 999 mls/hr eMAR Start Stop Document 05/18/17 10:13 [place] (Rec: 05/18/17 10:13 [place] [id number]) Intravenous Solution Start Date 05/18/17 Start Time 10:13 Magnesium Sulfate/Dextrose (Magnesium Sulfate 1 Gm/100 Ml D5w) 1 gm in 100 mls @ 100 mls/hr IVPB ONCE ONE Stop: 05/18/17 11:17 Last Admin: 05/18/17 11:06 Dose: 100 mls/hr eMAR Start Stop Document 05/18/17 11:06 NH (Rec: 05/18/17 11:06 NH [id number]) Intravenous Solution Start Date 05/18/17 Start Time 11:06 End Date 05/18/17 End time 12:06 Total Infusion Time 60 Ketorolac Tromethamine (Toradol) 30 mg IVP STAT STA Stop: 05/18/17 13:25 Last Admin: 05/18/17 15:22 Dose: 30 mg MAR Pain Assessment Document 05/18/17 15:22 EQ (Rec: 05/18/17 15:22 EQ [id number]) Pain Reassessment Is this a pain reassessment? Yes IVP Administration Document 05/18/17 15:22 EQ (Rec: 05/18/17 15:22 EQ [id number]) Charges for Administration # of IVP Administrations 1 Lorazepam (Ativan) 1 mg IVP Q8 CESAR PRN Reason: Protocol Ondansetron HCl (Zofran Inj) 4 mg IVP STAT STA Stop: 05/18/17 09:29 Last Admin: 05/18/17 10:13 Dose: 4 mg IVP Administration Document 05/18/17 10:13 NH (Rec: 05/18/17 10:13 NH [id number]) Charges for Administration # of IVP Administrations 1 Thiamine HCl (Vitamin B1 Inj) 100 mg IM STAT STA Stop: 05/18/17 10:18 Last Admin: 05/18/17 10:42 Dose: 100 mg IM Administration Charges Document 05/18/17 10:42 NH (Rec: 05/18/17 10:43 NH [id number]) Injection Site MAR Injection Site Left Vastus Lateralis Charges for Administration # of IM Administrations 1 - PA / [employer] / Resident Statement / has reviewed & agrees with the documentation as recorded. / has examined the patient and agrees with the treatment plan. <Usama Kang - Last Filed: 05/18/17 11:06> Disposition/Present on Arrival <Usama Kang - Last Filed: 05/18/17 11:06> - Present on Arrival Any Indicators Present on Arrival: No History of DVT/PE: No History of Uncontrolled Diabetes: No Urinary Catheter: No History of Decub. Ulcer: No History Surgical Site Infection Following: None - Disposition Have Diagnosis and Disposition been Completed?: Yes Disposition Time: 16:09 <Julia Castañeda - Last Filed: 05/18/17 16:10> - Disposition Diagnosis: Chronic pancreatitis Disposition: HOSPITALIZED Patient Problems: Current Active Problems Problem Status Onset Chronic pancreatitis Acute Condition: FAIR
[2017-05-18 10:02] LABS: BASO # 0.03 K/mm3 (0.0-2.0); BASO % 0.4 % (0.0-3.0); EOS % 0.1 % (1.5-5.0); GRAN # 6.4 (1.4-6.5); GRAN % 79.4 % (50.0-68.0); HEMATOCRIT 37.5 % (42.0-52.0); LYMPH # 1.3 (1.2-3.4); LYMPH % 15.8 % (22.0-35.0); MEAN CELL VOLUME 75.8 fl (80.0-105.0); MEAN CORPUSCULAR HEMOGLOBIN 27.5 pg (25.0-35.0); MEAN CORPUSCULAR HGB CONC 36.3 g/dl (31.0-37.0); MEAN PLATELET VOLUME 10.3 fl (7.0-11.0); MONO # 0.4 (0.1-0.6); MONO % 4.3 % (1.0-6.0); RED CELL DISTRIBUTION WIDTH 18.2 % (11.5-14.5); WHITE BLOOD COUNT 8.1 10^3/ul (4.5-11.0)
[2017-05-18 10:12] LABS: ALB/GLOB RATIO 1.4 (1.1-1.8); ALKALINE PHOSPHATASE 114 U/L (38-126); ALT/SGPT 109 U/L (7-56); AST/SGOT 198 U/L (17-59); BLOOD UREA NITROGEN 14 mg/dL (7-21); CALCIUM 9.6 mg/dL (8.4-10.5); CARBON DIOXIDE 25 mmol/L (21-33); CHLORIDE 98 mmol/L (98-107); GFR AFRICAN-AMERICAN > 60; LIPASE 367 U/L (23-300); MAGNESIUM 1.5 mg/dL (1.7-2.2); POTASSIUM 4.1 mmol/L (3.6-5.0); SODIUM 144 mmol/L (132-148); TOTAL PROTEIN 7.8 g/dL (5.8-8.3)
[2017-05-18 10:14] LABS: GLUCOSE,RANDOM 38 mg/dL (70-110)
[2017-05-18] MEDS ORDERED: Dextrose 50% SYRINGE Inj (50 ml) IVP STA (10:16)
[2017-05-18] MEDS ORDERED: Thiamine 100 mg/ml Inj IM STA (10:17)
[2017-05-18] MEDS ORDERED: Magnesium Sulfate 1 gm in D5W 1 GM/100 ML BAG IVPB ONE (10:18)
[2017-05-18 10:26] LABS: TROPONIN I < 0.01 ng/mL
[2017-05-18 10:46] LABS: URINE BILIRUBIN NEGATIVE (NEGATIVE); URINE BLOOD NEGATIVE (NEGATIVE); URINE GLUCOSE (UA) NEGATIVE (NEGATIVE); URINE KETONE >=80 mg/dL (NEGATIVE); URINE LEUKOCYTE ESTERASE NEGATIVE Leu/uL (NEGATIVE); URINE PROTEIN 30 mg/dL (<30 mg/dL)
[2017-05-18 10:48] LABS: URINE APPEARANCE SL CLOUDY (CLEAR); URINE COLOR YELLOW (YELLOW)
[2017-05-18 10:54] LABS: URINE RBC 0 - 2 /hpf (0-2); URINE WBC 0 - 2 /hpf (0-6)
--- NOTE | 2017-05-18 13:21 | CT ---
PROCEDURE: CT Angiography Chest, Abdomen and Pelvis with and without intravenous contrast HISTORY: abdominal/chest pain, hx of abdominal aneurysm, COMPARISON: CT scan 12/10/2014 TECHNIQUE: Contiguous axial images of the chest, abdomen and pelvis were obtained in the phase of aortic enhancement. A noncontrast enhanced CT of the chest was also obtained to evaluate for possible intramural thrombus. Coronal and sagittal reformats were generated. This CT exam was performed using one or more of the following dose reduction techniques: Automated exposure control, adjustment of the mA and/or kV according to patient size, and/or use of iterative reconstruction technique. Intravenous contrast dose: 150 cc of Omni 350 Radiation dose: Total exam DLP = 465 mGy-cm. FINDINGS: CT ANGIOGRAPHY OF THE CHEST WITH & WITHOUT CONTRAST: AORTA (CHEST AND ABDOMEN): There is a chronic aortic dissection. This was 1st seen on the study dated 12/10/2014. At that time the dissection can be seen beginning in the ascending aorta an extending throughout the length of the aorta consistent with a type a dissection. On the current study the component of the dissection in the ascending aorta has been repaired and is no longer seen. . The dissection is seen in the aortic arch and in the left subclavian artery. The dissection extends through the length of the abdominal aorta. There is no change in size. LUNGS: Clear. No nodule, mass or consolidation. MEDIASTINUM: Unremarkable. Normal caliber aorta and pulmonary arterial trunk. No aortic dissection. Normal size heart. LYMPH NODES: Unremarkable. PLEURA: Unremarkable. No pneumothorax. No pleural fluid. BONES: Unremarkable. OTHER FINDINGS: None. CT ANGIOGRAPHY OF THE ABDOMEN AND PELVIS WITH CONTRAST: LIVER: There is fatty infiltration of the liver. There is some mural thickening in the stomach which may represent gastritis. Clinical correlation is suggested. GALLBLADDER AND BILE DUCTS: Unremarkable. PANCREAS: Unremarkable. No gross lesion or ductal dilatation. SPLEEN: Unremarkable. ADRENALS: Unremarkable. No mass. KIDNEYS AND URETERS: Unremarkable. No hydronephrosis. No solid mass. VASCULATURE: Unremarkable. No aortic aneurysm. STOMACH AND BOWEL: Unremarkable. No obstruction. No gross mural thickening. There is no evidence of bowel ischemia or free air. APPENDIX: Normal appendix. PERITONEUM: Unremarkable. No free fluid. No free air. LYMPH NODES: Unremarkable. No enlarged lymph nodes. BLADDER: Unremarkable. REPRODUCTIVE: Unremarkable. BONES: No acute fracture. OTHER FINDINGS: The findings were discussed with Dr. Castañeda IMPRESSION: Chronic aortic dissection unchanged in appearance. Possible gastritis. Fatty infiltration of the liver
--- NOTE | 2017-05-18 14:22 | CP.PCM.HP ---
<Fernando Dior - Last Filed: 05/18/17 16:05> History of Present Illness - History of Present Illness History of Present Illness: Subjective: CC: Abdominal Pain Patient is a 51 year old male with a history of alcohol abuse, substance abuse, chronic pancreatitis, chronic aortic dissection s/p repair, hypertension, and hyperlipidemia who presents to ED for evaluation and treatment abdominal pain which began yesterday after drinking half a pint of erika. The abdominal pain originates midline lower abdomen and radiates to the both the RLQ and LLQ. Admits to multiple bouts of nonbloody emesis and nausea. Unable to tolerate diet. Admits to SOb with exertion. Denies fever, chills, chest pain, SOB at rest, hematemesis, hematochezia, diarrhea, constipation, and urinary symptoms. PMH: Pancreatitis, alcohol abuse, thoracic aneurysm, HLD, chronic aortic dissection s/p repair, htn, hpl PSH: aneurysm repair 2014 Allergies: NKDA FH: denies Social hx: 1 ppd/27 yrs. 1 pint of erika each day for 20 yrs. Past heroin user. Lives with parents in . Home meds: please see med rec Physical Examination: Head: Present: Atraumatic, Normocephalic Eyes: EOMI Mouth: Present: Dry. No: Trismus Respiratory/Chest: Present: Clear to Auscultation, Good Air Exchange. No: Respiratory Distress, Accessory Muscle Use Cardiovascular: Present: Regular Rate and Rhythm, Normal S1, S2 Abdomen: Present: Tenderness, guarding, slight distention, normal bowel sounds. No: Distention, Rebound tenderness, or guarding Back: Present: Normal Inspection. No: CVA Tenderness Neurological: Present: CN II-XII Intact, Speech Normal, Motor Func Grossly Intact Skin: Present: Warm, Normal Color Psychiatric: Present: Alert, Oriented x 3, Normal Insight Assessment and Plan: Patient is a 51 year old male with a history of alcohol abuse, substance abuse, chronic pancreatitis, chronic aortic dissection s/p repair, hypertension, and hyperlipidemia who presents to ED for evaluation and treatment abdominal pain. Abdominal Pain - likely due to acute on chronic pancreatitis - CT Angiography Chest, Abdomen and Pelvis with and without intravenous contrast reviewed and appreciated - Chronic aortic dissection unchanged in appearance. Possible gastritis. Fatty infiltration of the liver - will consider getting CT of abdomen and pelvis - previous ECHO reviewed- LVEF greater than 70%, aortic root is mildly enlarged , mild-moderate pulm hypertension - previous myocardial perfusion scan reviewed - no regional wall motion abnormalities - lipase in 300s- repeat in AM - NPO - IVF LR @ 200 ETOH Abuse - thiamine, b12, folate supplement - education on importance of ETOH abuse provided - CIWA - Ativan 1mg q6 prn ETOH withdrawl Methadone User - uses [facility] [phone] extension 212 Lillie - call placed clinic could not be reached- will try again in AM - monitor for withdrawl symptoms EKG Changes - NSR HR 80 bpm, QTc 495 and [place] 164 -- no zofran as QTc is prolonged - T-wave inversion in lateral leads - 1st troponin negative; troponins trended x 2 pending Anemic - hgb at 13- greater than baseline - monitor closely with daily CBC Hypoglycemia - dextrose given in ED - finger stick q8 hours Hypomagnesemia - repleted by ED and recheck in AM Thrombocytopenia - no subq heparin, no ppi - monitor closely via CBC Hx HTN - BP stable off of medications - hold off on antihypertensives at this time- monitor closely Hx HPL - lipid panel pending PPX - scds - famotidine Patient seen, case discussed with, and plan approved by attending physician, Dr. Gomez. Present on Admission - Present on Admission Any Indicators Present on Admission: No Past Patient History - Infectious Disease Hx of Infectious Diseases: None - Tetanus Immunizations Tetanus Immunization: Unknown - Past Medical History & Family History Past Medical History?: Yes - Past Social History Smoking Status: Heavy Smoker > 10 Cigarettes Daily - CARDIAC Hx Cardiac Disorders: Yes Hx Hypertension: Yes Other/Comment: AORTIC ANEURYSM - PULMONARY Hx Respiratory Disorders: No - NEUROLOGICAL Hx Neurological Disorder: No - HEENT Hx HEENT Problems: No - RENAL Hx Chronic Kidney Disease: No - ENDOCRINE/METABOLIC Hx Endocrine Disorders: No - HEMATOLOGICAL/ONCOLOGICAL Hx Blood Disorders: Yes Hx Anemia: Yes - INTEGUMENTARY Hx Dermatological Problems: No - MUSCULOSKELETAL/RHEUMATOLOGICAL Hx Musculoskeletal Disorders: Yes Hx Arthritis: Yes - GASTROINTESTINAL Hx Gastrointestinal Disorders: No - GENITOURINARY/GYNECOLOGICAL Hx Genitourinary Disorders: No - PSYCHIATRIC Hx Psychophysiologic Disorder: No Hx Substance Use: No (pt denies) - SURGICAL HISTORY Hx Abdominal Aortic Aneurysm Repair: Yes Hx Open Heart Surgery: Yes - ANESTHESIA Hx Anesthesia: Yes Hx Anesthesia Reactions: No Hx Malignant Hyperthermia: No Meds Allergies/Adverse Reactions: Allergies Allergy/AdvReac Type Severity Reaction Status Date / Time No Known Allergies Allergy Verified 05/18/17 08:53 Results - Vital Signs Recent Vital Signs: Last Vital Signs Temp 98.9 F 05/18/17 11:14 Pulse 75 05/18/17 11:14 Resp 18 05/18/17 11:14 BP 138/68 05/18/17 11:14 Pulse Ox 97 05/18/17 11:14 - Labs Result Diagrams: 05/18/17 09:15 05/18/17 09:15 <Kevin Gomez - Last Filed: 05/18/17 17:37> Results - Vital Signs Recent Vital Signs: Last Vital Signs Temp 98.9 F 05/18/17 11:14 Pulse 75 05/18/17 11:14 Resp 18 05/18/17 11:14 BP 138/68 05/18/17 11:14 Pulse Ox 97 05/18/17 11:14 - Labs Result Diagrams: 05/18/17 09:15 05/18/17 09:15 Attending/Attestation - Attestation I have personally seen and examined this patient.: Yes I have fully participated in the care of the patient.: Yes I have reviewed all pertinent clinical information: Yes Notes (Text): I have seen and examined the patient at bedside. Agree with the note dictated above with the following additions/ exceptions: Briefly this is 51 year old male with history of alcohol abuse, tobacco use, substance abuse now methadone dependent, chronic pancreatitis, chronic aortic dissection s/p repair, hypertension, and hyperlipidemia who came to ED for evaluation of abdominal pain , nausea and vomiting and found to have acute on chronic pancreatitis secondary to most likely alcohol abuse however cholelithiasis/ cholecystitis is still possible. Will order hepatic ultrasound. Will check hep panel. We will start IV hydration, antiemetics, analgesics and make pateint NPO. Will obtain GI consult. Monitor closely for alcohol withdrawal. Will check phos level. Mag was already replaced. Will start ativan sana and prn. Upon discharge patient will follow up with Dr Marcello Vidales. Counselling provided regarding tobacco and tobacco use. Dr Kevin Gomez
[2017-05-18] MEDS ORDERED: Sodium Chloride 0.9% 1,000 ML IV SCH (15:30)
[2017-05-18 15:33] LABS: CHOLESTEROL 223 mg/dL (130-200)
--- NOTE | 2017-05-18 17:38 | CARD ---
APPROVED REPORT EKG Measurement Heart [id number] <Conclusion> Normal sinus rhythm Possible Left atrial enlargement ST & T wave abnormality, consider inferior ischemia ST & T wave abnormality, consider anterolateral ischemia Prolonged QT Abnormal ECG
--- NOTE | 2017-05-18 18:54 | US ---
HISTORY: rule out cholelithiasis COMPARISON: May 18, 2017. CT angiogram. Chronic aortic Summary of findings on the comparison examination: Dissection unchanged in appearance TECHNIQUE: Sonographic evaluation of the right upper quadrant of the abdomen. FINDINGS: LIVER: Measures 11.4 x 19.5 x 16.4 cm in length. Hepatopedal blood flow. Fatty infiltration manifest ultrasonographically as increased echogenicity of the liver parenchyma. No mass. No intrahepatic bile duct dilatation. GALLBLADDER: Unremarkable. No gallstones. COMMON BILE DUCT: Measures 6.5 mm. No stones. No dilatation. PANCREAS: Unremarkable as visualized. No mass. No ductal dilatation. RIGHT KIDNEY: Measures 5.2 x 10 cm in length. Normal echogenicity. No calculus, mass, or hydronephrosis. AORTA: Documentation of aortic dissection a finding better visualized on recent CT scan. IVC: Unremarkable. OTHER FINDINGS: Trace ascites. IMPRESSION: No acute findings related to/accounting for the clinical presentation. Hepatomegaly/hepatic steatosis without focal abnormality. Additional benign and/or incidental findings described above.
[2017-05-18] MEDS: Lactated Ringer's 1,000 ML IV SCH (21:22)
[2017-05-18] MEDS ORDERED: Influenza Vaccine 60 mcg/0.5 mL SYR (4YR UP) IM ONE (21:55)
[2017-05-18] MEDS ORDERED: Pneumococcal 23-Valent Vaccine IM ONE (21:55)
[2017-05-19] MEDS: Lactated Ringer's 1,000 ML IV SCH ×3 (02:03→17:52)
[2017-05-19 06:26] LABS: BASO # 0.01 K/mm3 (0.0-2.0); BASO % 0.1 % (0.0-3.0); EOS # 0.1 (0.0-0.7); EOS % 1.2 % (1.5-5.0); GRAN # 4.19 (1.4-6.5); GRAN % 62.7 % (50.0-68.0); HEMATOCRIT 33.7 % (42.0-52.0); LYMPH # 1.9 (1.2-3.4); LYMPH % 27.8 % (22.0-35.0); MEAN CELL VOLUME 75.4 fl (80.0-105.0); MEAN CORPUSCULAR HEMOGLOBIN 26.8 pg (25.0-35.0); MEAN CORPUSCULAR HGB CONC 35.6 g/dl (31.0-37.0); MEAN PLATELET VOLUME 10.3 fl (7.0-11.0); MONO # 0.6 (0.1-0.6); MONO % 8.2 % (1.0-6.0); RED CELL DISTRIBUTION WIDTH 17.8 % (11.5-14.5); WHITE BLOOD COUNT 6.7 10^3/ul (4.5-11.0)
[2017-05-19 06:50] LABS: ALB/GLOB RATIO 1.2 (1.1-1.8); ALKALINE PHOSPHATASE 87 U/L (38-126); ALT/SGPT 83 U/L (7-56); AST/SGOT 109 U/L (17-59); BILIRUBIN,TOTAL 0.8 mg/dL (0.2-1.3); BLOOD UREA NITROGEN 14 mg/dL (7-21); CALCIUM 9.2 mg/dL (8.4-10.5); CARBON DIOXIDE 32 mmol/L (21-33); CHLORIDE 99 mmol/L (98-107); GFR AFRICAN-AMERICAN > 60; GLUCOSE,RANDOM 91 mg/dL (70-110); LIPASE 813 U/L (23-300); MAGNESIUM 1.8 mg/dL (1.7-2.2); POTASSIUM 3.7 mmol/L (3.6-5.0); SODIUM 136 mmol/L (132-148); TOTAL PROTEIN 6.2 g/dL (5.8-8.3)
[2017-05-19 07:07] LABS: TROPONIN I 0.03 ng/mL
[2017-05-19] MEDS: Morphine 2 mg/ml ISec IVP PRN ×2 (09:06→12:07)
[2017-05-19] MEDS: Multivitamin Therapeutic Tab PO SCH (09:08)
[2017-05-19] MEDS: Famotidine 20mg/50ml 20 MG/50 ML BAG IVPB SCH ×2 (09:08→21:19)
--- NOTE | 2017-05-19 13:44 | CP.PCM.PN ---
<Fernando Dior - Last Filed: 05/19/17 13:33> Subjective - Date & Time of Evaluation Date of Evaluation: 05/19/17 Time of Evaluation: 07:30 - Subjective Subjective: Subjective: Patient seen and examined at bedside. Resting comfortably in bed. Patient states abdominal pain has not improved relative to baseline. Admits to nausea but no vomiting. States that he is seeing purple elephants in room. Denies f/c/ cp/sob/d/c/urinary sxs. Physical Examination: Head: Present: Atraumatic, Normocephalic Eyes: EOMI Mouth: Present: Dry. No: Trismus Respiratory/Chest: Present: Clear to Auscultation, Good Air Exchange. No: Respiratory Distress, Accessory Muscle Use Cardiovascular: Present: Regular Rate and Rhythm, Normal S1, S2 Abdomen: Present: Tenderness, guarding, slight distention, normal bowel sounds. No: Distention, Rebound tenderness, or guarding Back: Present: Normal Inspection. No: CVA Tenderness Neurological: Present: CN II-XII Intact, Speech Normal, Motor Func Grossly Intact Skin: Present: Warm, Normal Color Psychiatric: Present: Alert, Oriented x 3, Normal Insight Assessment and Plan: Patient is a 51 year old male with a history of alcohol abuse, substance abuse, chronic pancreatitis, chronic aortic dissection s/p repair, hypertension, and hyperlipidemia who presents to ED for evaluation and treatment abdominal pain. Abdominal Pain - likely due to acute on chronic pancreatitis - CT Angiography Chest, Abdomen and Pelvis with and without intravenous contrast reviewed and appreciated - Chronic aortic dissection unchanged in appearance. Possible gastritis. Fatty infiltration of the liver - will consider getting CT of abdomen and pelvis - previous ECHO reviewed- LVEF greater than 70%, aortic root is mildly enlarged , mild-moderate pulm hypertension - previous myocardial perfusion scan reviewed - no regional wall motion abnormalities - lipase in 800s- repeat in AM - NPO - IVF LR @ 200 - pain control with morphine ETOH Abuse and Withdrawal - thiamine, b12, folate supplement - education on importance of ETOH abuse/ control of limited ETOH intake provided - CIWA - Ativan 2mg q6 schedule and 2 mg q2 prn ETOH withdrawl sxs Methadone User - started methadone 120 mg today- dosage confirmed via Memoright - monitor for withdrawl symptoms EKG Changes - NSR HR 80 bpm, QTc 495 and MS 164 -- no zofran as QTc is prolonged - T-wave inversion in lateral leads - troponins trended and negative - patient moved to remote telemetry Anemic - hgb at 12 - monitor closely with daily CBC Hypoglycemia - dextrose given in ED - finger stick q8 hours Hypomagnesemia - resolved Thrombocytopenia - downtrending - c/w no subq heparin, no ppi - monitor closely via CBC Hx HTN - BP stable off of medications - hold off home Lopressor at this time Hx HPL - CHL elevated - hold home statin due to transaminitis PPX - scds - famotidine Patient seen, case discussed with, and plan approved by attending physician, Dr. Gomez. Objective - Vital Signs/Intake and Output Vital Signs (last 24 hours): Temp Pulse Resp BP Pulse Ox 99 F 76 20 139/96 H 99 05/19/17 08:06 05/19/17 10:00 05/19/17 08:06 05/19/17 08:06 05/19/17 08:06 - Medications Medications: Current Medications Folic Acid (Folic Acid) 1 mg PO DAILY [facility] Last Admin: 05/19/17 09:08 Dose: 1 mg Lactated Ringer's (Lactated Ringer's) 1,000 mls @ 200 mls/hr IV .Q5H [facility] Last Admin: 05/19/17 09:08 Dose: 200 mls/hr Famotidine (Pepcid 20mg/50ml Premix) 20 mg in 50 mls @ 100 mls/hr IVPB Q12 [facility] Stop: 05/21/17 23:59 Last Admin: 05/19/17 09:08 Dose: 100 mls/hr Lorazepam (Ativan) 2 mg IVP Q2H PRN; Protocol PRN Reason: Symptoms of alcohol withdrawl Lorazepam (Ativan) 2 mg IVP Q6 [facility] PRN Reason: Protocol Last Admin: 05/19/17 12:05 Dose: 2 mg Morphine Sulfate (Morphine) 1 mg IVP Q4H PRN PRN Reason: Pain, moderate (4-7) Last Admin: 05/19/17 12:07 Dose: 1 mg Multivitamins (Thera Tab) 1 tab PO 0800 [facility] Last Admin: 05/19/17 09:08 Dose: 1 tab Thiamine HCl (Vitamin B1 Tab) 100 mg PO DAILY [facility] Last Admin: 05/19/17 09:08 Dose: 100 mg <Gomez,Irfana B - Last Filed: 05/20/17 13:17> Objective - Vital Signs/Intake and Output Vital Signs (last 24 hours): Temp Pulse Resp BP Pulse Ox 99.2 F 88 20 131/90 97 05/20/17 06:00 05/20/17 06:00 05/20/17 06:00 05/20/17 06:00 05/20/17 06:00 Intake and Output: 05/20/17 05/20/17 06:59 18:59 Intake Total 0 0 Output Total 800 1400 Balance -800 -1400 - Medications Medications: Current Medications Folic Acid (Folic Acid) 1 mg PO DAILY [facility] Last Admin: 05/20/17 09:09 Dose: 1 mg Famotidine (Pepcid 20mg/50ml Premix) 20 mg in 50 mls @ 100 mls/hr IVPB Q12 [facility] Stop: 05/21/17 23:59 Last Admin: 05/20/17 09:04 Dose: 100 mls/hr Lactated Ringer's (Lactated Ringer's) 1,000 mls @ 125 mls/hr IV .Q8H [facility] Last Admin: 05/20/17 12:40 Dose: 125 mls/hr Lorazepam (Ativan) 2 mg IVP Q2H PRN; Protocol PRN Reason: Symptoms of alcohol withdrawl Last Admin: 05/20/17 11:29 Dose: 2 mg Lorazepam (Ativan) 2 mg IVP Q6 [facility] PRN Reason: Protocol Last Admin: 05/20/17 13:10 Dose: Not Given Morphine Sulfate (Morphine) 1 mg IVP Q4H PRN PRN Reason: Pain, moderate (4-7) Last Admin: 05/19/17 12:07 Dose: 1 mg Multivitamins (Thera Tab) 1 tab PO 0800 [facility] Last Admin: 05/20/17 09:09 Dose: 1 tab Thiamine HCl (Vitamin B1 Tab) 100 mg PO DAILY [facility] Last Admin: 05/20/17 09:09 Dose: 100 mg - Labs Labs: 05/20/17 06:30 05/20/17 06:30 Attending/Attestation - Attestation I have personally seen and examined this patient.: Yes I have fully participated in the care of the patient.: Yes I have reviewed all pertinent clinical information, including history, physical exam and plan: Yes Notes (Text): I have seen and examined the patient at bedside. Agree with the note dictated above with the following additions/ exceptions: Briefly this is 51 year old male with history of alcohol abuse, tobacco use, substance abuse now methadone dependent, chronic pancreatitis, chronic aortic dissection s/p repair, hypertension, and hyperlipidemia who came to ED for evaluation of abdominal pain , nausea and vomiting and found to have acute on chronic pancreatitis secondary to most likely alcohol abuse. Hepatic ultrasound did not show any cholelithiasis. Hep panel is negative. Will continue IV hydration, antiemetics, analgesics and NPO. GI consult appreciated. Monitor closely for alcohol withdrawal. Will continue ativan sana and prn. Upon discharge patient will follow up with Dr Marcello Vidales. Counselling provided regarding tobacco and tobacco use. Dr Kevin Gomez
--- NOTE | 2017-05-19 17:23 | CON ---
DATE: 05/19/2017 HISTORY OF PRESENT ILLNESS: I saw Mr. Delgado this morning. 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 The patient denied any hematemesis or rectal bleeding; however, nausea and vomiting was significant. No fever or chills . PHYSICAL EXAMINATION: VITAL SIGNS: I reviewed this patient's vital signs. HEENT: Exam significant for dry mouth. LUNGS: Decreased breath sounds, basilar. HEART: Irregular rhythm. ABDOMEN: Soft, tender, diffuse, nondistended. Tenderness more significant in the left upper quadrant. LABORATORY DATA: I reviewed this patient's laboratory data. H and H are 13.6 and 37 with a platelet count of 104. Lipase is 367. Transaminases, AST/ALT ratio 190/109 with an alkaline phosphatase of 114. He had a moderately low magnesium. Urine showed some spillage of protein. No blood noted. The patient underwent different studies including angiography, CT which was read as "chronic aortic dissection," unchanged in appearance. A gallbladder ultrasound showed hepatic steatosis which he has had before. No abnormality of the biliary tract noted. Pancreas showed no ductal dilatation or masses. ASSESSMENT: A 51-year-old black male with abdominal pain probably secondary to severe gastritis, possibly pancreatitis (with mildly elevated lipase). The patient continues to drink heavily on a daily basis despite recommendations to cut down. RECOMMENDATIONS: Orders for this patient are appropriate and include medications for detox, also lactated Ringers for pancreatitis issues, mag sulfate, morphine, fluid, vitamins. The patient should be on either PPI or proton pump inhibitor as well. Tr Posada DO, PhD ALEXI
[2017-05-20 07:21] LABS: BASO # 0.01 K/mm3 (0.0-2.0); BASO % 0.1 % (0.0-3.0); EOS # 0.1 (0.0-0.7); EOS % 1.6 % (1.5-5.0); GRAN # 5.15 (1.4-6.5); GRAN % 63.8 % (50.0-68.0); HEMATOCRIT 34.6 % (42.0-52.0); LYMPH # 2.2 (1.2-3.4); LYMPH % 27.1 % (22.0-35.0); MEAN CELL VOLUME 75.7 fl (80.0-105.0); MEAN CORPUSCULAR HEMOGLOBIN 26.9 pg (25.0-35.0); MEAN CORPUSCULAR HGB CONC 35.5 g/dl (31.0-37.0); MEAN PLATELET VOLUME 10.1 fl (7.0-11.0); MONO # 0.6 (0.1-0.6); MONO % 7.4 % (1.0-6.0); RED CELL DISTRIBUTION WIDTH 17.6 % (11.5-14.5); WHITE BLOOD COUNT 8.1 10^3/ul (4.5-11.0)
[2017-05-20 07:52] LABS: ALB/GLOB RATIO 1.3 (1.1-1.8); ALKALINE PHOSPHATASE 98 U/L (38-126); ALT/SGPT 72 U/L (7-56); AST/SGOT 102 U/L (17-59); BILIRUBIN,TOTAL 0.9 mg/dL (0.2-1.3); BLOOD UREA NITROGEN 7 mg/dL (7-21); CALCIUM 9.6 mg/dL (8.4-10.5); CARBON DIOXIDE 28 mmol/L (21-33); CHLORIDE 97 mmol/L (98-107); GFR AFRICAN-AMERICAN > 60; GLUCOSE,RANDOM 69 mg/dL (70-110); POTASSIUM 3.7 mmol/L (3.6-5.0); SODIUM 136 mmol/L (132-148); TOTAL PROTEIN 6.6 g/dL (5.8-8.3)
[2017-05-20] MEDS: Famotidine 20mg/50ml 20 MG/50 ML BAG IVPB SCH ×2 (09:04→21:21)
[2017-05-20] MEDS: Multivitamin Therapeutic Tab PO SCH (09:09)
[2017-05-20] MEDS: Lactated Ringer's 1,000 ML IV SCH ×3 (09:10→19:51)
--- NOTE | 2017-05-20 11:13 | PN ---
DATE: 05/20/2017 SUBJECTIVE: I saw Mr. Delgado this morning. 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 At the bedside this morning, the patient exhibiting his usual faces and little talk, few words. However, he did indicate that the pain is unchanged relative to yesterday. According to the nurse, the patient has been relatively stable. No evidence of rectal bleeding, hematemesis, nausea, vomiting, etc. PHYSICAL EXAMINATION: VITAL SIGNS: I reviewed this patient's vital signs. HEENT: Noncontributory. LUNGS: Decreased breath sounds, basilar bilaterally. HEART: Regular rhythm. ABDOMEN: Doughy, tenderness in the left upper quadrant, epigastric area, mildly distended. LABORATORY DATA: Pending for today. Most recent labs indicate a slight drop in H and H, probably on the dilutional basis. Note that the WBC as well as platelets also decreased. Note that the lipase value is 367, initially subsequently 813, consistent with pancreatitis. He did have an improvement in his transaminases relative to admission. Note the ratio as of yesterday was 109/83. Bilirubin is still within normal limits. ASSESSMENT: This is a 51-year-old black male, substance abuser as well as drinking significant alcohol despite advice to the contrary. Treat symptomatically for pancreatitis and delirium tremens. He is on H2 aquiles as well as multivitamins, thiamine, methadone, Lactated Ringer's, rate is 200, which is adequate for the current patient. Tr Posada DO, PhD ALEXI
--- NOTE | 2017-05-20 12:31 | CP.PCM.PN ---
<Fernando Dior - Last Filed: 05/20/17 12:24> Subjective - Date & Time of Evaluation Date of Evaluation: 05/20/17 Time of Evaluation: 10:25 - Subjective Subjective: Subjective: Patient seen and examined at bedside. Restless, trying to leave bed. States that his abdominal pain has improved relative to baseline and wants to leave the hospital. It was explained to him that he needs to continue to be monitored for his safety. Denies f/c/cp/sob/d/c/urinary sxs/visual hallucinations. Physical Examination: Head: Present: Atraumatic, Normocephalic Eyes: EOMI Mouth: Present: dry Respiratory/Chest: Present: Clear to Auscultation, Good Air Exchange. No: Respiratory Distress, Accessory Muscle Use Cardiovascular: Present: Regular Rate and Rhythm, Normal S1, S2 Abdomen: Present: mild tenderness, normal bowel sounds. No: guarding, Distention, Rebound tenderness, or guarding Back: Present: Normal Inspection. No: CVA Tenderness Neurological: Present: CN II-XII Intact, Speech Normal, Motor Func Grossly Intact Skin: Present: Warm, Normal Color Psychiatric: Present: Alert, Oriented x 3, Normal Insight Assessment and Plan: Patient is a 51 year old male with a history of alcohol abuse, substance abuse, chronic pancreatitis, chronic aortic dissection s/p repair, hypertension, and hyperlipidemia who presents to ED for evaluation and treatment abdominal pain. Abdominal Pain - likely due to acute on chronic pancreatitis - CT Angiography Chest, Abdomen and Pelvis with and without intravenous contrast reviewed and appreciated - Chronic aortic dissection unchanged in appearance. Possible gastritis. Fatty infiltration of the liver - previous ECHO reviewed- LVEF greater than 70%, aortic root is mildly enlarged , mild-moderate pulm hypertension - previous myocardial perfusion scan reviewed - no regional wall motion abnormalities - lipase pending - diet advanced to clears - IVF LR decreased to 125 - pain control with morphine ETOH Abuse and Withdrawal - thiamine, b12, folate supplement - education on importance of ETOH abuse/ control of limited ETOH intake provided - CIWA - Ativan 2mg q6 schedule and 2 mg q2 prn ETOH withdrawl sxs Methadone User - given methadone 110 mg today - monitor for withdrawl symptoms EKG Changes - NSR HR 80 bpm, QTc 495 and AR 164 -- no zofran as QTc is prolonged - T-wave inversion in lateral leads - troponins trended and negative - patient moved to remote telemetry Anemic - hgb at 12 - monitor closely with daily CBC Hypoglycemia - dextrose given in ED - finger stick q8 hours Hypomagnesemia - resolved Thrombocytopenia - downtrending - c/w no subq heparin, no ppi - monitor closely via CBC Hx HTN - BP stable off of medications - hold off home Lopressor at this time Hx HPL - CHL elevated - hold home statin due to transaminitis PPX - scds - famotidine Patient seen, case discussed with, and plan approved by attending physician, Dr. Gomez. Objective - Vital Signs/Intake and Output Vital Signs (last 24 hours): Temp Pulse Resp BP Pulse Ox 99.2 F 88 20 131/90 97 05/20/17 06:00 05/20/17 06:00 05/20/17 06:00 05/20/17 06:00 05/20/17 06:00 Intake and Output: 05/20/17 05/20/17 06:59 18:59 Intake Total 0 0 Output Total 800 1400 Balance -800 -1400 - Medications Medications: Current Medications Folic Acid (Folic Acid) 1 mg PO DAILY [facility] Last Admin: 05/20/17 09:09 Dose: 1 mg Lactated Ringer's (Lactated Ringer's) 1,000 mls @ 200 mls/hr IV .Q5H [facility] Last Admin: 05/20/17 09:10 Dose: 200 mls/hr Famotidine (Pepcid 20mg/50ml Premix) 20 mg in 50 mls @ 100 mls/hr IVPB Q12 [facility] Stop: 05/21/17 23:59 Last Admin: 05/20/17 09:04 Dose: 100 mls/hr Lorazepam (Ativan) 2 mg IVP Q2H PRN; Protocol PRN Reason: Symptoms of alcohol withdrawl Last Admin: 05/20/17 11:29 Dose: 2 mg Lorazepam (Ativan) 2 mg IVP Q6 [facility] PRN Reason: Protocol Last Admin: 05/20/17 06:31 Dose: 2 mg Morphine Sulfate (Morphine) 1 mg IVP Q4H PRN PRN Reason: Pain, moderate (4-7) Last Admin: 05/19/17 12:07 Dose: 1 mg Multivitamins (Thera Tab) 1 tab PO 0800 [facility] Last Admin: 05/20/17 09:09 Dose: 1 tab Thiamine HCl (Vitamin B1 Tab) 100 mg PO DAILY [facility] Last Admin: 05/20/17 09:09 Dose: 100 mg - Labs Labs: 05/20/17 06:30 05/20/17 06:30 <Kevin Gomez - Last Filed: 05/20/17 13:20> Objective - Vital Signs/Intake and Output Vital Signs (last 24 hours): Temp Pulse Resp BP Pulse Ox 99.2 F 88 20 131/90 97 05/20/17 06:00 05/20/17 06:00 05/20/17 06:00 05/20/17 06:00 05/20/17 06:00 Intake and Output: 05/20/17 05/20/17 06:59 18:59 Intake Total 0 0 Output Total 800 1400 Balance -800 -1400 - Medications Medications: Current Medications Folic Acid (Folic Acid) 1 mg PO DAILY [facility] Last Admin: 05/20/17 09:09 Dose: 1 mg Famotidine (Pepcid 20mg/50ml Premix) 20 mg in 50 mls @ 100 mls/hr IVPB Q12 [facility] Stop: 05/21/17 23:59 Last Admin: 05/20/17 09:04 Dose: 100 mls/hr Lactated Ringer's (Lactated Ringer's) 1,000 mls @ 125 mls/hr IV .Q8H [facility] Last Admin: 05/20/17 12:40 Dose: 125 mls/hr Lorazepam (Ativan) 2 mg IVP Q2H PRN; Protocol PRN Reason: Symptoms of alcohol withdrawl Last Admin: 05/20/17 11:29 Dose: 2 mg Lorazepam (Ativan) 2 mg IVP Q6 [facility] PRN Reason: Protocol Last Admin: 05/20/17 13:10 Dose: Not Given Morphine Sulfate (Morphine) 1 mg IVP Q4H PRN PRN Reason: Pain, moderate (4-7) Last Admin: 05/19/17 12:07 Dose: 1 mg Multivitamins (Thera Tab) 1 tab PO 0800 [facility] Last Admin: 05/20/17 09:09 Dose: 1 tab Thiamine HCl (Vitamin B1 Tab) 100 mg PO DAILY [facility] Last Admin: 05/20/17 09:09 Dose: 100 mg - Labs Labs: 05/20/17 06:30 05/20/17 06:30 Attending/Attestation - Attestation I have personally seen and examined this patient.: Yes I have fully participated in the care of the patient.: Yes I have reviewed all pertinent clinical information, including history, physical exam and plan: Yes Notes (Text): I have seen and examined the patient at bedside. Agree with the note dictated above with the following additions/ exceptions: Briefly this is 51 year old male with history of alcohol abuse, tobacco use, substance abuse now methadone dependent, chronic pancreatitis, chronic aortic dissection s/p repair, hypertension, and hyperlipidemia who came to ED for evaluation of abdominal pain , nausea and vomiting and found to have acute on chronic pancreatitis secondary to most likely alcohol abuse. Hepatic ultrasound did not show any cholelithiasis. Hep panel is negative. Will continue IV hydration, antiemetics, analgesics ..Abdominal pain is slightly better. Denoes any nausea or vomiting. Will start clear liquid diet for dinner. GI consult appreciated. Monitor closely for alcohol withdrawal. Will continue ativan sana and prn. Continue tapering dose of methadone. Upon discharge patient will follow up with Dr Marcello Vidales. Counselling provided regarding tobacco and tobacco use. Dr Kevin Gomez
[2017-05-20] MEDS: Morphine 2 mg/ml ISec IVP PRN (21:23)
[2017-05-21] MEDS: Lactated Ringer's 1,000 ML IV SCH ×3 (03:20→20:00)
[2017-05-21 07:21] LABS: BASO # 0.03 K/mm3 (0.0-2.0); BASO % 0.4 % (0.0-3.0); EOS # 0.2 (0.0-0.7); EOS % 2.3 % (1.5-5.0); GRAN # 4.37 (1.4-6.5); GRAN % 62.8 % (50.0-68.0); LYMPH # 1.8 (1.2-3.4); MEAN CELL VOLUME 76.1 fl (80.0-105.0); MEAN CORPUSCULAR HEMOGLOBIN 26.7 pg (25.0-35.0); MEAN CORPUSCULAR HGB CONC 35.1 g/dl (31.0-37.0); MONO # 0.6 (0.1-0.6); MONO % 8.5 % (1.0-6.0); RED CELL DISTRIBUTION WIDTH 17.7 % (11.5-14.5)
[2017-05-21 07:30] LABS: ALB/GLOB RATIO 1.2 (1.1-1.8); ALKALINE PHOSPHATASE 97 U/L (38-126); ALT/SGPT 73 U/L (7-56); AST/SGOT 90 U/L (17-59); BILIRUBIN,TOTAL 0.9 mg/dL (0.2-1.3); BLOOD UREA NITROGEN 6 mg/dL (7-21); CALCIUM 9.8 mg/dL (8.4-10.5); CARBON DIOXIDE 34 mmol/L (21-33); CHLORIDE 97 mmol/L (98-107); GFR AFRICAN-AMERICAN > 60; GLUCOSE,RANDOM 89 mg/dL (70-110); SODIUM 140 mmol/L (132-148); TOTAL PROTEIN 6.9 g/dL (5.8-8.3)
--- NOTE | 2017-05-21 08:31 | PN ---
DATE: SUBJECTIVE: I saw Mr. Delgado this morning. 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 The patient has made progress on the current regimen and indicates the abdominal pain has decreased substantially relative to what they are on admission. No complaints of hematemesis or rectal bleeding, however, he does periodically require pain medication according to the nurses on the floor. PHYSICAL EXAMINATION VITAL SIGNS: I reviewed this patient's vital signs. LUNGS: Decreased breath sounds at basilar. HEART: Irregular rhythm. ABDOMEN: Soft, tenderness in the epigastric as well as the left upper quadrant, periumbilical. LABORATORY DATA: Consistent with stable H and H of 12 and 34 and platelet count of 76. The lipase has decreased to 465 as of early yesterday. No major change in his transaminases, AST/ALT ratio 102/72. ASSESSMENT AND PLAN: A 51-year-old black male with history of substance abuse, admitted with pancreatitis, improving on current regimen. Note the intravenous fluid rate decreased to 125. Medications on board include methadone, morphine, thiamine, multivitamins, Pepcid, etc. He is currently on liquid diet, which he is tolerating well, could continue on current therapeutic regimen. Tr Posada DO, PhD ALEXI
[2017-05-21 09:17] LABS: MAGNESIUM 1.5 mg/dL (1.7-2.2); PHOSPHOROUS 4.5 mg/dL (2.5-4.5)
[2017-05-21] MEDS: Famotidine 20mg/50ml 20 MG/50 ML BAG IVPB SCH ×2 (09:53→21:20)
[2017-05-21] MEDS: Metoprolol Succinate 25 mg XL Tab PO SCH (09:54)
[2017-05-21] MEDS: Multivitamin Therapeutic Tab PO SCH (09:54)
--- NOTE | 2017-05-21 11:17 | CP.PCM.PN ---
<Fernando Dior - Last Filed: 05/21/17 11:09> Subjective - Date & Time of Evaluation Date of Evaluation: 05/21/17 Time of Evaluation: 09:30 - Subjective Subjective: Subjective: Patient seen and examined at bedside. Tachycardia noted. States that his abdominal pain has improved relative to baseline. It was explained to him that he needs to continue to be monitored for his safety. Admits to visualizing purple elephants. Denies f/c/cp/sob/d/c/urinary sxs. Physical Examination: Head: Present: Atraumatic, Normocephalic Eyes: EOMI Mouth: Present: dry Respiratory/Chest: Present: Clear to Auscultation, Good Air Exchange. No: Respiratory Distress, Accessory Muscle Use Cardiovascular: Present: Regular Rate and Rhythm, Normal S1, S2 Abdomen: Present: mild tenderness, normal bowel sounds. No: guarding, Distention, Rebound tenderness, or guarding Back: Present: Normal Inspection. No: CVA Tenderness Neurological: Present: CN II-XII Intact, Speech Normal, Motor Func Grossly Intact Skin: Present: Warm, Normal Color Psychiatric: Present: Alert, Oriented x 3, Normal Insight Assessment and Plan: Patient is a 51 year old male with a history of alcohol abuse, substance abuse, chronic pancreatitis, chronic aortic dissection s/p repair, hypertension, and hyperlipidemia who presents to ED for evaluation and treatment abdominal pain. Abdominal Pain - likely due to acute on chronic pancreatitis - CT Angiography Chest, Abdomen and Pelvis with and without intravenous contrast reviewed and appreciated - Chronic aortic dissection unchanged in appearance. Possible gastritis. Fatty infiltration of the liver - previous ECHO reviewed- LVEF greater than 70%, aortic root is mildly enlarged , mild-moderate pulm hypertension - previous myocardial perfusion scan reviewed - no regional wall motion abnormalities - lipase pending - diet advanced to fulls - IVF LR 125 - pain control with morphine ETOH Abuse and Withdrawal - thiamine, b12, folate supplement - education on importance of ETOH abuse/ control of limited ETOH intake provided - CIWA, visual hallucinations 2/2 withdrawl - Ativan 2mg q6 schedule and 2 mg q2 prn ETOH withdrawl sxs Methadone User - given methadone 110 mg today - monitor for withdrawl symptoms Transaminitis - AST and ALT trending down EKG Changes - NSR HR 80 bpm, QTc 495 and MA 164 -- no zofran as QTc is prolonged - T-wave inversion in lateral leads - troponins trended and negative - no longer requires remote tele Anemic - hgb trended and stable - monitor closely with daily CBC Hypoglycemia - dextrose given in ED - finger stick q8 hours - glucoses trended and stable Hypomagnesemia - resolved Thrombocytopenia - downtrending - c/w no subq heparin, no ppi - monitor closely via CBC Hx HTN - restarted Lopressor at this time Hx HPL - CHL elevated - hold home statin due to transaminitis PPX - scds - famotidine Patient seen, case discussed with, and plan approved by attending physician, Dr. Gomez Objective - Vital Signs/Intake and Output Vital Signs (last 24 hours): Temp Pulse Resp BP Pulse Ox 98.3 F 115 H 20 136/88 97 05/21/17 06:00 05/21/17 09:54 05/21/17 06:00 05/21/17 09:54 05/21/17 06:00 Intake and Output: 05/21/17 05/21/17 06:59 18:59 Intake Total 2040 Output Total 4300 Balance -2260 - Medications Medications: Current Medications Aspirin (Ecotrin) 81 mg PO DAILY [facility] Atorvastatin Calcium (Lipitor) 40 mg PO DAILY [facility] Famotidine (Pepcid) 20 mg PO DAILY [facility] Folic Acid (Folic Acid) 1 mg PO DAILY [facility] Famotidine (Pepcid 20mg/50ml Premix) 20 mg in 50 mls @ 100 mls/hr IVPB Q12 [facility] Stop: 05/21/17 23:59 Last Admin: 05/21/17 09:53 Dose: 100 mls/hr Lactated Ringer's (Lactated Ringer's) 1,000 mls @ 125 mls/hr IV .Q8H [facility] Last Admin: 05/21/17 03:20 Dose: 125 mls/hr Lorazepam (Ativan) 2 mg IVP Q2H PRN; Protocol PRN Reason: Symptoms of alcohol withdrawl Last Admin: 05/20/17 15:43 Dose: 2 mg Lorazepam (Ativan) 2 mg IVP Q6 SANA PRN Reason: Protocol Last Admin: 05/21/17 06:00 Dose: 2 mg Metoprolol Succinate (Toprol Xl) 25 mg PO DAILY [facility] Last Admin: 05/21/17 09:54 Dose: 25 mg Morphine Sulfate (Morphine) 1 mg IVP Q4H PRN PRN Reason: Pain, moderate (4-7) Last Admin: 05/20/17 21:23 Dose: 1 mg Multivitamins (Thera Tab) 1 tab PO 0800 [facility] Last Admin: 05/21/17 09:54 Dose: 1 tab Thiamine HCl (Vitamin B1 Tab) 100 mg PO DAILY [facility] Last Admin: 05/21/17 10:55 Dose: 100 mg - Labs Labs: 05/21/17 06:30 05/21/17 06:30 <Kevin Gomez B - Last Filed: 05/21/17 14:21> Objective - Vital Signs/Intake and Output Vital Signs (last 24 hours): Temp Pulse Resp BP Pulse Ox 98.3 F 115 H 20 136/88 97 05/21/17 06:00 05/21/17 09:54 05/21/17 06:00 05/21/17 09:54 05/21/17 06:00 Intake and Output: 05/21/17 05/21/17 06:59 18:59 Intake Total 2040 Output Total 4300 Balance -2260 - Medications Medications: Current Medications Aspirin (Ecotrin) 81 mg PO DAILY [facility] Atorvastatin Calcium (Lipitor) 40 mg PO DAILY [facility] Famotidine (Pepcid) 20 mg PO DAILY [facility] Folic Acid (Folic Acid) 1 mg PO DAILY [facility] Famotidine (Pepcid 20mg/50ml Premix) 20 mg in 50 mls @ 100 mls/hr IVPB Q12 [facility] Stop: 05/21/17 23:59 Last Admin: 05/21/17 09:53 Dose: 100 mls/hr Lactated Ringer's (Lactated Ringer's) 1,000 mls @ 125 mls/hr IV .Q8H [facility] Last Admin: 05/21/17 03:20 Dose: 125 mls/hr Lorazepam (Ativan) 2 mg IVP Q2H PRN; Protocol PRN Reason: Symptoms of alcohol withdrawl Last Admin: 05/20/17 15:43 Dose: 2 mg Lorazepam (Ativan) 2 mg IVP Q6 [facility] PRN Reason: Protocol Last Admin: 05/21/17 13:43 Dose: Not Given Metoprolol Succinate (Toprol Xl) 25 mg PO DAILY [facility] Last Admin: 05/21/17 09:54 Dose: 25 mg Morphine Sulfate (Morphine) 1 mg IVP Q4H PRN PRN Reason: Pain, moderate (4-7) Last Admin: 05/20/17 21:23 Dose: 1 mg Multivitamins (Thera Tab) 1 tab PO 0800 [facility] Last Admin: 05/21/17 09:54 Dose: 1 tab Thiamine HCl (Vitamin B1 Tab) 100 mg PO DAILY [facility] Last Admin: 05/21/17 10:55 Dose: 100 mg - Labs Labs: 05/21/17 06:30 05/21/17 06:30 Attending/Attestation - Attestation I have personally seen and examined this patient.: Yes I have fully participated in the care of the patient.: Yes I have reviewed all pertinent clinical information, including history, physical exam and plan: Yes Notes (Text): I have seen and examined the patient at bedside. Agree with the note dictated above with the following additions/ exceptions: Briefly this is 51 year old male with history of alcohol abuse, tobacco use, substance abuse now methadone dependent, chronic pancreatitis, chronic aortic dissection s/p repair, hypertension, and hyperlipidemia who came to ED for evaluation of abdominal pain , nausea and vomiting and found to have acute on chronic pancreatitis secondary to most likely alcohol abuse. Hepatic ultrasound did not show any cholelithiasis. Hep panel is negative. Will continue IV hydration, antiemetics, analgesics. Abdominal pain is slightly better. Denies any nausea or vomiting. Will advance diet as tolerated. GI consult appreciated. Monitor closely for alcohol withdrawal. Will continue ativan sana and prn. Continue tapering dose of methadone. Upon discharge patient will follow up with Dr Marcello Vidales. Counselling provided regarding tobacco and tobacco use. Dr Kevin Gomez
[2017-05-22] MEDS: Lactated Ringer's 1,000 ML IV SCH ×3 (04:30→21:16)
[2017-05-22] MEDS: Morphine 2 mg/ml ISec IVP PRN (05:35)
[2017-05-22 07:24] LABS: BASO # 0.03 K/mm3 (0.0-2.0); BASO % 0.5 % (0.0-3.0); EOS # 0.2 (0.0-0.7); EOS % 2.9 % (1.5-5.0); GRAN # 3.92 (1.4-6.5); GRAN % 60.5 % (50.0-68.0); HEMATOCRIT 34.2 % (42.0-52.0); LYMPH # 1.8 (1.2-3.4); MEAN CELL VOLUME 76.5 fl (80.0-105.0); MEAN CORPUSCULAR HEMOGLOBIN 26.8 pg (25.0-35.0); MEAN CORPUSCULAR HGB CONC 35.1 g/dl (31.0-37.0); MEAN PLATELET VOLUME 9.7 fl (7.0-11.0); MONO # 0.6 (0.1-0.6); MONO % 9.1 % (1.0-6.0); RED CELL DISTRIBUTION WIDTH 17.6 % (11.5-14.5); WHITE BLOOD COUNT 6.5 10^3/ul (4.5-11.0)
[2017-05-22 07:34] LABS: ALB/GLOB RATIO 1.3 (1.1-1.8); ALKALINE PHOSPHATASE 86 U/L (38-126); ALT/SGPT 76 U/L (7-56); AST/SGOT 62 U/L (17-59); BILIRUBIN,TOTAL 0.9 mg/dL (0.2-1.3); BLOOD UREA NITROGEN 4 mg/dL (7-21); CALCIUM 9.9 mg/dL (8.4-10.5); CARBON DIOXIDE 35 mmol/L (21-33); CHLORIDE 99 mmol/L (95-110); GFR AFRICAN-AMERICAN > 60; GLUCOSE,RANDOM 94 mg/dL (70-110); POTASSIUM 4.1 mmol/L (3.6-5.0); SODIUM 141 mmol/L (132-148); TOTAL PROTEIN 6.6 g/dL (5.8-8.3)
[2017-05-22] MEDS: Multivitamin Therapeutic Tab PO SCH (09:00)
[2017-05-22] MEDS ORDERED: Non Formulary Medication (Thiamine Mononitrate [Vitamin B-1] 100 MG) PO SCH (10:00)
[2017-05-22] MEDS: Metoprolol Succinate 25 mg XL Tab PO SCH (10:41)
--- NOTE | 2017-05-22 11:46 | CP.PCM.DIS ---
Addendum entered and electronically signed by Fernando Dior DO 05/22/17 15:09: Code star was called patient. As per nursing, the patient ambulated with assistance to the bathroom. Patient fell forward trying to get up from the toilet. Denies hitting his head. States he used his right upper extremity for balance and landed on his right knee. Denies pain in the aforementioned joints. Patient denies dizziness, visual deficits, and loss of consciousness. Physical Exam Head: AT NC Eyes: EOMI, noniceteric Extremities: FROM, no swelling, no erythema, no cyanosis, no clubbing, no TTP Assessment and Plan: Fall - patient will stay in hospital for monitoring s/p fall - dc fluids - 1:1 - PT/OT eval Patient case discussed with and plan approved by Dr. Healy. Original Note: <Fernando Dior - Last Filed: 05/22/17 14:39> Provider - Provider Date of Admission: 05/19/17 12:56 Attending physician: Karina Healy MD Time Spent in preparation of Discharge (in minutes): 45 Diagnosis - Discharge Diagnosis (1) Chronic pancreatitis Status: Acute Priority: Medium (2) Hx of repair of dissecting thoracic aortic aneurysm, [place] type A Status: Chronic Priority: Medium (3) Hypertension Status: Chronic Priority: Medium (4) Alcohol abuse Status: Acute Priority: Medium (5) Elevated transaminase level Status: Acute Priority: Medium (6) Anemia Status: Acute Priority: Medium Hospital Course - Lab Results Lab Results: Most Recent Lab Values WBC 6.5 10^3/ul (4.5-11.0) 05/22/17 07:16 RBC 4.47 10^6/uL (3.5-6.1) 05/22/17 07:16 Hgb 12.0 g/dL (14.0-18.0) L 05/22/17 07:16 Hct 34.2 % (42.0-52.0) L 05/22/17 07:16 MCV 76.5 fl (80.0-105.0) L 05/22/17 07:16 MCH 26.8 pg (25.0-35.0) 05/22/17 07:16 MCHC 35.1 g/dl (31.0-37.0) 05/22/17 07:16 RDW 17.6 % (11.5-14.5) H 05/22/17 07:16 Plt Count 84 10^3/uL (120.0-450.0) L 05/22/17 07:16 MPV 9.7 fl (7.0-11.0) 05/22/17 07:16 Gran % 60.5 % (50.0-68.0) 05/22/17 07:16 Lymph % (Auto) 27.0 % (22.0-35.0) 05/22/17 07:16 [place] % (Auto) 9.1 % (1.0-6.0) H 05/22/17 07:16 Eos % (Auto) 2.9 % (1.5-5.0) 05/22/17 07:16 Baso % (Auto) 0.5 % (0.0-3.0) 05/22/17 07:16 Gran # 3.92 (1.4-6.5) 05/22/17 07:16 Lymph # 1.8 (1.2-3.4) 05/22/17 07:16 [place] # 0.6 (0.1-0.6) 05/22/17 07:16 Eos # 0.2 (0.0-0.7) 05/22/17 07:16 Baso # 0.03 K/mm3 (0.0-2.0) 05/22/17 07:16 Sodium 141 mmol/L (132-148) 05/22/17 07:16 Potassium 4.1 mmol/L (3.6-5.0) 05/22/17 07:16 Chloride 99 mmol/L (95-110) 05/22/17 07:16 Carbon Dioxide 35 mmol/L (21-33) H 05/22/17 07:16 Anion Gap 11 (10-20) 05/22/17 07:16 BUN 4 mg/dL (7-21) L 05/22/17 07:16 Creatinine 0.6 mg/dL (0.8-1.5) L 05/22/17 07:16 Est GFR ( Amer) > 60 05/22/17 07:16 Est GFR (Non-Af Amer) > 60 05/22/17 07:16 POC Glucose (mg/dL) 130 mg/dL (65-110) H 05/18/17 11:39 Random Glucose 94 mg/dL (70-110) 05/22/17 07:16 Calcium 9.9 mg/dL (8.4-10.5) 05/22/17 07:16 Phosphorus 4.5 mg/dL (2.5-4.5) 05/21/17 06:30 Magnesium 1.5 mg/dL (1.7-2.2) L 05/21/17 06:30 Total Bilirubin 0.9 mg/dL (0.2-1.3) 05/22/17 07:16 AST 62 U/L (17-59) H D 05/22/17 07:16 ALT 76 U/L (7-56) H 05/22/17 07:16 Alkaline Phosphatase 86 U/L (38-126) 05/22/17 07:16 Lactate Dehydrogenase 745 U/L (333-699) H 05/18/17 09:15 Total Creatine Kinase 86 U/L (35-230) 05/18/17 09:15 Troponin I 0.03 ng/mL 05/19/17 05:40 Total Protein 6.6 g/dL (5.8-8.3) 05/22/17 07:16 Albumin 3.7 g/dL (3.0-4.8) 05/22/17 07:16 Globulin 2.9 gm/dL 05/22/17 07:16 Albumin/Globulin Ratio 1.3 (1.1-1.8) 05/22/17 07:16 Triglycerides 57 mg/dL (35-160) 05/18/17 09:15 Cholesterol 223 mg/dL (130-200) H 05/18/17 09:15 LDL Cholesterol Direct 63 mg/dL (0-129) 05/18/17 09:15 HDL Cholesterol 156 mg/dL (29-60) H 05/18/17 09:15 Lipase 393 U/L (23-300) H 05/22/17 08:16 Urine Color Yellow (YELLOW) 05/18/17 10:35 Urine Appearance Sl cloudy (CLEAR) 05/18/17 10:35 Urine pH 6.0 (4.7-8.0) 05/18/17 10:35 Ur Specific [place] >= 1.030 (1.005-1.035) 05/18/17 10:35 Urine Protein 30 mg/dL (<30 mg/dL) H 05/18/17 10:35 Urine Glucose (UA) Negative mg/dL (NEGATIVE) 05/18/17 10:35 Urine Ketones >=80 mg/dL (NEGATIVE) 05/18/17 10:35 Urine Blood Negative (NEGATIVE) 05/18/17 10:35 Urine Nitrate Negative (NEGATIVE) 05/18/17 10:35 Urine Bilirubin Negative (NEGATIVE) 05/18/17 10:35 Urine Urobilinogen 1.0 E.U./dL (<1 E.U./dL) H 05/18/17 10:35 Ur Leukocyte Esterase Negative Singh/uL (NEGATIVE) 05/18/17 10:35 Urine RBC 0 - 2 /hpf (0-2) 05/18/17 10:35 Urine WBC 0 - 2 /hpf (0-6) 05/18/17 10:35 Urine Other Mucus 05/18/17 10:35 Alcohol, Quantitative 23 mg/dL (0-10) H 05/18/17 09:15 - Hospital Course Hospital Course: Patient is a 51 year old male with a history of alcohol abuse, substance abuse, chronic pancreatitis, chronic aortic dissection s/p repair, hypertension, and hyperlipidemia who was admitted for evaluation and treatment abdominal pain. With the use of physical examinations, lab work, and imaging the patient was diagnosed with and treated for acute on chronic pancreatitis, ETOH withdrawl, along with the patients other chronic medical conditions.During their hospital stay the patient was seen by gastroenterology and their recommendations were both appreciated and utilized in the care for this patient.During their hospital stay the patient underwent a CT angiogram and gallbladder ultrasound which were reviewed, appreciated, and utilized in the management of the patients clinical course. Patient was treated with intravenous fluids, ativan, vitamins, antihypertensive medications, and other empiric/therapeutic medications. Patients abdominal pain has resolved and he able to tolerate a diet. At this time the patient is medically stable for discharge. Patient understands and appreciates discharge plan. Patient instructed to follow up with primary care physicians and referrals within three to five days from discharge. Furthermore, the patient is instructed to take medications as prescribed and to return to emergency room for evaluation of intractable headache, fever, chills, dizziness, chest pain, shortness of breath , abdominal pain, nausea, vomiting, diarrhea, constipation, and urinary symptoms. This is a brief summary of the patients hospital course. Please see patient chart for full details Discharge Exam - Additional Findings Additional findings: Head: Present: Atraumatic, Normocephalic Eyes: EOMI Mouth: Present: dry Respiratory/Chest: Present: Clear to Auscultation, Good Air Exchange. No: Respiratory Distress, Accessory Muscle Use Cardiovascular: Present: Regular Rate and Rhythm, Normal S1, S2 Abdomen: Present: mild tenderness, normal bowel sounds. No: guarding, Distention, Rebound tenderness, or guarding Back: Present: Normal Inspection. No: CVA Tenderness Neurological: Present: CN II-XII Intact, Speech Normal, Motor Func Grossly Intact Skin: Present: Warm, Normal Color Psychiatric: Present: Alert, Oriented x 3, Normal Insight, Normal mood, normal affect Discharge Plan - Discharge Medications Prescriptions: chlordiazePOXIDE [Chlordiazepoxide HCl] 5 mg PO TID 2 Days cap Multivitamin Therapeutic Tab [Thera Tab] 1 tab PO 0800 14 Days tab Thiamine [Vitamin B1 Tab] 100 mg PO DAILY 14 Days tab - Follow Up Plan Condition: FAIR Disposition: HOME/ ROUTINE Patient education suggested?: Yes Additional Instructions: Patient Instructions: Take medications as prescribed. Follow up with PMD and referrals within three to five days from discharge. Return to the emergency room for evaluation of intractable headache, fever, chills, dizziness, chest pain, shortness of breath, abdominal pain, nausea, vomiting, diarrhea, constipation, and urinary symptoms. Referrals: Tr Posada DO [Staff Provider] - Marcello Rodrigues MD [Family Provider] - <Karina Healy - Last Filed: 05/22/17 18:19> Provider - Provider Date of Admission: 05/19/17 12:56 Attending physician: Karina Healy MD Hospital Course - Lab Results Lab Results: Most Recent Lab Values WBC 6.5 10^3/ul (4.5-11.0) 05/22/17 07:16 RBC 4.47 10^6/uL (3.5-6.1) 05/22/17 07:16 Hgb 12.0 g/dL (14.0-18.0) L 05/22/17 07:16 Hct 34.2 % (42.0-52.0) L 05/22/17 07:16 MCV 76.5 fl (80.0-105.0) L 05/22/17 07:16 MCH 26.8 pg (25.0-35.0) 05/22/17 07:16 MCHC 35.1 g/dl (31.0-37.0) 05/22/17 07:16 RDW 17.6 % (11.5-14.5) H 05/22/17 07:16 Plt Count 84 10^3/uL (120.0-450.0) L 05/22/17 07:16 MPV 9.7 fl (7.0-11.0) 05/22/17 07:16 Gran % 60.5 % (50.0-68.0) 05/22/17 07:16 Lymph % (Auto) 27.0 % (22.0-35.0) 05/22/17 07:16 [place] % (Auto) 9.1 % (1.0-6.0) H 05/22/17 07:16 Eos % (Auto) 2.9 % (1.5-5.0) 05/22/17 07:16 Baso % (Auto) 0.5 % (0.0-3.0) 05/22/17 07:16 Gran # 3.92 (1.4-6.5) 05/22/17 07:16 Lymph # 1.8 (1.2-3.4) 05/22/17 07:16 [place] # 0.6 (0.1-0.6) 05/22/17 07:16 Eos # 0.2 (0.0-0.7) 05/22/17 07:16 Baso # 0.03 K/mm3 (0.0-2.0) 05/22/17 07:16 Sodium 141 mmol/L (132-148) 05/22/17 07:16 Potassium 4.1 mmol/L (3.6-5.0) 05/22/17 07:16 Chloride 99 mmol/L (95-110) 05/22/17 07:16 Carbon Dioxide 35 mmol/L (21-33) H 05/22/17 07:16 Anion Gap 11 (10-20) 05/22/17 07:16 BUN 4 mg/dL (7-21) L 05/22/17 07:16 Creatinine 0.6 mg/dL (0.8-1.5) L 05/22/17 07:16 Est GFR ( Amer) > 60 05/22/17 07:16 Est GFR (Non-Af Amer) > 60 05/22/17 07:16 POC Glucose (mg/dL) 143 mg/dL (65-110) H 05/22/17 16:51 Random Glucose 94 mg/dL (70-110) 05/22/17 07:16 Calcium 9.9 mg/dL (8.4-10.5) 05/22/17 07:16 Phosphorus 4.5 mg/dL (2.5-4.5) 05/21/17 06:30 Magnesium 1.4 mg/dL (1.7-2.2) L 05/22/17 12:14 Total Bilirubin 0.9 mg/dL (0.2-1.3) 05/22/17 07:16 AST 62 U/L (17-59) H D 05/22/17 07:16 ALT 76 U/L (7-56) H 05/22/17 07:16 Alkaline Phosphatase 86 U/L (38-126) 05/22/17 07:16 Lactate Dehydrogenase 745 U/L (333-699) H 05/18/17 09:15 Total Creatine Kinase 86 U/L (35-230) 05/18/17 09:15 Troponin I 0.03 ng/mL 05/19/17 05:40 Total Protein 6.6 g/dL (5.8-8.3) 05/22/17 07:16 Albumin 3.7 g/dL (3.0-4.8) 05/22/17 07:16 Globulin 2.9 gm/dL 05/22/17 07:16 Albumin/Globulin Ratio 1.3 (1.1-1.8) 05/22/17 07:16 Triglycerides 57 mg/dL (35-160) 05/18/17 09:15 Cholesterol 223 mg/dL (130-200) H 05/18/17 09:15 LDL Cholesterol Direct 63 mg/dL (0-129) 05/18/17 09:15 HDL Cholesterol 156 mg/dL (29-60) H 10/12/17 09:15 Lipase 393 U/L (23-300) H 05/22/17 08:16 Urine Color Yellow (YELLOW) 05/18/17 10:35 Urine Appearance Sl cloudy (CLEAR) 05/18/17 10:35 Urine pH 6.0 (4.7-8.0) 05/18/17 10:35 Ur Specific [place] >= 1.030 (1.005-1.035) 05/18/17 10:35 Urine Protein 30 mg/dL (<30 mg/dL) H 05/18/17 10:35 Urine Glucose (UA) Negative mg/dL (NEGATIVE) 05/18/17 10:35 Urine Ketones >=80 mg/dL (NEGATIVE) 05/18/17 10:35 Urine Blood Negative (NEGATIVE) 05/18/17 10:35 Urine Nitrate Negative (NEGATIVE) 05/18/17 10:35 Urine Bilirubin Negative (NEGATIVE) 05/18/17 10:35 Urine Urobilinogen 1.0 E.U./dL (<1 E.U./dL) H 05/18/17 10:35 Ur Leukocyte Esterase Negative Singh/uL (NEGATIVE) 05/18/17 10:35 Urine RBC 0 - 2 /hpf (0-2) 05/18/17 10:35 Urine WBC 0 - 2 /hpf (0-6) 05/18/17 10:35 Urine Other Mucus 05/18/17 10:35 Alcohol, Quantitative 23 mg/dL (0-10) H 05/18/17 09:15 Attending/Attestation - Attestation I have personally seen and examined this patient.: Yes I have fully participated in the care of the patient.: Yes I have reviewed all pertinent clinical information, including history, physical exam and plan: Yes Notes (Text): 05/22/17 18:17 Attending note; Patient seen and examined with resident this morning. Patient is a 51 year old male with history of alcohol abuse, tobacco use, substance abuse now methadone dependent, chronic pancreatitis, chronic aortic dissection s/p repair, hypertension, and hyperlipidemia who came to ED for evaluation of abdominal pain, nausea and vomiting and found to have acute on chronic pancreatitis secondary to most likely alcohol abuse. Currently abdominal pain is resolved .tolerating diet . Hepatic ultrasound did not show any cholelithiasis. Hep panel is negative. Case discussed with GI in detail. Continue methadone. Possible discharge today . Upon discharge patient will follow up with Dr Marcello Vidales. Addendum; Patient became tachycardic and hypertensive. Started on IV Ativan. Patient became confused and agitated. Placed on vest [place]. Wichodon ordered. Monitor closely for withdrawal symptoms.
--- NOTE | 2017-05-22 13:27 | PN ---
DATE: 05/22/2017 SUBJECTIVE: I saw the patient this morning. 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 The patient made progress on the therapeutic regimen. Pain has decreased relative to admission. At the bedside this morning, the abdomen is soft, still feeling some tension in the left upper quadrant, epigastric, but not the same relative to day of admission. He is complaining about timing of his meals as well as the timing of his methadone, which is still on the formulary. He wished to have his methadone provided earlier in the morning than currently scheduled. PHYSICAL EXAMINATION: VITAL SIGNS: I reviewed this patient's vital signs. HEENT: Not contributory. LUNGS: Decreased breath sounds at the bases. HEART: Regular rhythm. ABDOMEN: Soft, tender epigastric, tender left upper quadrant. Abdomen is not distended. Some mild discomfort noted on palpation for a local area. LABORATORY DATA: I reviewed this patient's laboratory data. H and H stabilized this morning. Lipase is hovering mid 450 to 500. Decrease in transaminase is noted. Bili is still 0.9. I reviewed the reports of his respective consultants as well as the nursing notes. ASSESSMENT: A 51-year-old black male with history of multi-substance abuse here for complaints of abdominal pain, most likely due to pancreatitis. I think the orders are appropriate, however, his methadone should be given on a daily basis early in the morning since he is accustomed to this and has been initially pretty much on every admission. From what I see, the medication is off his med formulary. The patient will be reviewed this with housestaff this morning. We will continue on the current therapeutic regimen and discharge the patient when the hospitalist feels "appropriate." No acute GI intervention is warranted in this case at the current time. Tr Posada DO, PhD ALEXI
[2017-05-23 07:16] LABS: BASO # 0.03 K/mm3 (0.0-2.0); BASO % 0.5 % (0.0-3.0); EOS # 0.2 (0.0-0.7); EOS % 2.3 % (1.5-5.0); GRAN # 3.41 (1.4-6.5); GRAN % 53.3 % (50.0-68.0); HEMATOCRIT 34.2 % (42.0-52.0); LYMPH % 31.7 % (22.0-35.0); MEAN CELL VOLUME 76.9 fl (80.0-105.0); MEAN CORPUSCULAR HEMOGLOBIN 26.5 pg (25.0-35.0); MEAN CORPUSCULAR HGB CONC 34.5 g/dl (31.0-37.0); MEAN PLATELET VOLUME 9.8 fl (7.0-11.0); MONO # 0.8 (0.1-0.6); MONO % 12.2 % (1.0-6.0); RED CELL DISTRIBUTION WIDTH 17.5 % (11.5-14.5); WHITE BLOOD COUNT 6.4 10^3/ul (4.5-11.0)
[2017-05-23 07:31] LABS: ALB/GLOB RATIO 1.4 (1.1-1.8); ALKALINE PHOSPHATASE 84 U/L (38-126); ALT/SGPT 66 U/L (7-56); AST/SGOT 50 U/L (17-59); BILIRUBIN,TOTAL 0.7 mg/dL (0.2-1.3); BLOOD UREA NITROGEN 7 mg/dL (7-21); CALCIUM 9.8 mg/dL (8.4-10.5); CARBON DIOXIDE 35 mmol/L (21-33); CHLORIDE 101 mmol/L (98-107); GFR AFRICAN-AMERICAN > 60; GLUCOSE,RANDOM 94 mg/dL (70-110); POTASSIUM 4.3 mmol/L (3.6-5.0); SODIUM 143 mmol/L (132-148); TOTAL PROTEIN 6.6 g/dL (5.8-8.3)
[2017-05-23] MEDS: Metoprolol Succinate 25 mg XL Tab PO SCH (10:00)
[2017-05-23] MEDS: Multivitamin Therapeutic Tab PO SCH (10:00)
--- NOTE | 2017-05-23 11:12 | CP.PCM.PN ---
<Fernando Dior - Last Filed: 05/23/17 11:06> Subjective - Date & Time of Evaluation Date of Evaluation: 05/23/17 Time of Evaluation: 08:30 - Subjective Subjective: Subjective: Patient seen and examined at bedside. Stable vital signs noted. Patient resting comfortably in best with whitney vest. Calm and cooperative this AM. Understands and appreciates that he was kept in the hospital to monitor him for his safety. Denies f/c/cp/sob/d/c/urinary sxs. Physical Examination: Head: Present: Atraumatic, Normocephalic Eyes: EOMI Mouth: Present: dry Respiratory/Chest: Present: Clear to Auscultation, Good Air Exchange. No: Respiratory Distress, Accessory Muscle Use Cardiovascular: Present: Regular Rate and Rhythm, Normal S1, S2 Abdomen: Present: mild tenderness, normal bowel sounds. No: guarding, Distention, Rebound tenderness, or guarding Back: Present: Normal Inspection. No: CVA Tenderness Neurological: Present: CN II-XII Intact, Speech Normal, Motor Func Grossly Intact Skin: Present: Warm, Normal Color Psychiatric: Present: Alert, Oriented x 3, Normal Insight Assessment and Plan: Patient is a 51 year old male with a history of alcohol abuse, substance abuse, chronic pancreatitis, chronic aortic dissection s/p repair, hypertension, and hyperlipidemia who presents to ED for evaluation and treatment abdominal pain. Abdominal Pain - likely due to acute on chronic pancreatitis - CT Angiography Chest, Abdomen and Pelvis with and without intravenous contrast reviewed and appreciated - Chronic aortic dissection unchanged in appearance. Possible gastritis. Fatty infiltration of the liver - previous ECHO reviewed- LVEF greater than 70%, aortic root is mildly enlarged , mild-moderate pulm hypertension - previous myocardial perfusion scan reviewed - no regional wall motion abnormalities - lipase pending - diet advanced to heart healthy - IVF discontinued - pain control with morphine ETOH Abuse and Withdrawal - thiamine, b12, folate supplement - education on importance of ETOH abuse/ control of limited ETOH intake provided - CIWA, visual hallucinations 2/2 withdrawl - Ativan 2mg q6 schedule and 2 mg q2 prn ETOH withdrawl sxs Methadone User - given methadone 110 mg today - monitor for withdrawl symptoms Transaminitis - AST and ALT trending down EKG Changes - NSR HR 80 bpm, QTc 495 and VT 164 -- no zofran as QTc is prolonged - T-wave inversion in lateral leads - troponins trended and negative - no longer requires remote tele Anemic - hgb trended and stable - monitor closely with daily CBC Hypoglycemia - dextrose given in ED - finger stick q8 hours - glucoses trended and stable Hypomagnesemia - resolved Thrombocytopenia - trending up - c/w no subq heparin, no ppi - monitor closely via CBC Hx HTN - c/w Lopressor Hx HPL - CHL elevated - hold home statin due to transaminitis- wait for AST ALT to normalize PPX - scds - famotidine Patient seen, case discussed with, and plan approved by attending physician, Dr. Healy. Objective - Vital Signs/Intake and Output Vital Signs (last 24 hours): Temp Pulse Resp BP Pulse Ox 98.1 F 82 20 123/84 97 05/23/17 00:00 05/23/17 10:00 05/23/17 00:00 05/23/17 10:00 05/23/17 00:00 Intake and Output: 05/23/17 05/23/17 06:59 18:59 Intake Total 0 Output Total 250 Balance -250 - Medications Medications: Current Medications Aspirin (Ecotrin) 81 mg PO DAILY [facility] Last Admin: 05/23/17 10:00 Dose: 81 mg Atorvastatin Calcium (Lipitor) 40 mg PO DAILY [facility] Last Admin: 05/23/17 10:00 Dose: 40 mg Famotidine (Pepcid) 20 mg PO DAILY [facility] Last Admin: 05/23/17 10:00 Dose: 20 mg Folic Acid (Folic Acid) 1 mg PO DAILY [facility] Last Admin: 05/23/17 10:00 Dose: 1 mg Lorazepam (Ativan) 2 mg IVP Q2H PRN; Protocol PRN Reason: Symptoms of alcohol withdrawl Last Admin: 05/22/17 20:41 Dose: 2 mg Lorazepam (Ativan) 1 mg IVP Q8 [facility] PRN Reason: Protocol Last Admin: 05/23/17 05:52 Dose: 1 mg Metoprolol Succinate (Toprol Xl) 25 mg PO DAILY [facility] Last Admin: 05/23/17 10:00 Dose: 25 mg Morphine Sulfate (Morphine) 1 mg IVP Q4H PRN PRN Reason: Pain, moderate (4-7) Last Admin: 05/22/17 05:35 Dose: 1 mg Multivitamins (Thera Tab) 1 tab PO 0800 [facility] Last Admin: 05/23/17 10:00 Dose: 1 tab Thiamine HCl (Vitamin B1 Tab) 100 mg PO DAILY [facility] Last Admin: 05/23/17 10:00 Dose: 100 mg - Labs Labs: 05/23/17 07:03 05/23/17 07:03 Assessment and Plan (1) Chronic pancreatitis Status: Acute (2) Hx of repair of dissecting thoracic aortic aneurysm, [place] type A Status: Chronic (3) Hypertension Status: Chronic (4) Alcohol abuse Status: Acute (5) Elevated transaminase level Status: Acute (6) Anemia Status: Acute <Karina Healy - Last Filed: 05/23/17 15:17> Objective - Vital Signs/Intake and Output Vital Signs (last 24 hours): Temp Pulse Resp BP Pulse Ox 98.1 F 82 20 123/84 97 05/23/17 00:00 05/23/17 10:00 05/23/17 00:00 05/23/17 10:00 05/23/17 00:00 Intake and Output: 05/23/17 05/23/17 06:59 18:59 Intake Total 0 Output Total 250 Balance -250 - Medications Medications: Current Medications Aspirin (Ecotrin) 81 mg PO DAILY [facility] Last Admin: 05/23/17 10:00 Dose: 81 mg Atorvastatin Calcium (Lipitor) 40 mg PO DAILY [facility] Last Admin: 05/23/17 10:00 Dose: 40 mg Famotidine (Pepcid) 20 mg PO DAILY [facility] Last Admin: 05/23/17 10:00 Dose: 20 mg Folic Acid (Folic Acid) 1 mg PO DAILY [facility] Last Admin: 05/23/17 10:00 Dose: 1 mg Lorazepam (Ativan) 2 mg IVP Q2H PRN; Protocol PRN Reason: Symptoms of alcohol withdrawl Last Admin: 05/22/17 20:41 Dose: 2 mg Lorazepam (Ativan) 1 mg IVP Q8 [facility] PRN Reason: Protocol Last Admin: 05/23/17 05:52 Dose: 1 mg Metoprolol Succinate (Toprol Xl) 25 mg PO DAILY [facility] Last Admin: 05/23/17 10:00 Dose: 25 mg Morphine Sulfate (Morphine) 1 mg IVP Q4H PRN PRN Reason: Pain, moderate (4-7) Last Admin: 05/22/17 05:35 Dose: 1 mg Multivitamins (Thera Tab) 1 tab PO 0800 [facility] Last Admin: 05/23/17 10:00 Dose: 1 tab Thiamine HCl (Vitamin B1 Tab) 100 mg PO DAILY [facility] Last Admin: 05/23/17 10:00 Dose: 100 mg - Labs Labs: 05/23/17 07:03 05/23/17 07:03 Attending/Attestation - Attestation I have personally seen and examined this patient.: Yes I have fully participated in the care of the patient.: Yes I have reviewed all pertinent clinical information, including history, physical exam and plan: Yes Notes (Text): 05/23/17 15:09 Attending note; Patient seen and examined with resident this morning. on milad olson. 1;1 by the bedside. patient is more calm today. Patient is a 51 year old male with history of alcohol abuse, tobacco use, substance abuse now methadone dependent, chronic pancreatitis, chronic aortic dissection s/p repair, hypertension, and hyperlipidemia who came to ED for evaluation of abdominal pain, nausea and vomiting and found to have acute on chronic pancreatitis secondary to alcohol abuse. alcohol withdrawal symptoms improving slowly. Monitor closely. Upon discharge patient will follow up with Dr Marcello Vidales.
[2017-05-24] MEDS: Multivitamin Therapeutic Tab PO SCH (08:06)
[2017-05-24 08:27] VITALS: RESP 20
[2017-05-24] MEDS: Metoprolol Succinate 25 mg XL Tab PO SCH (09:17)
--- NOTE | 2017-05-24 13:10 | CP.PCM.PN ---
<Fernando Dior - Last Filed: 05/24/17 13:02> Subjective - Date & Time of Evaluation Date of Evaluation: 05/24/17 Time of Evaluation: 09:30 - Subjective Subjective: Subjective: Patient seen and examined at bedside. Stable vital signs noted. Patient resting comfortably in bed. Patient is sleepy and cooperative this AM. Understands and appreciates that he will be kept in the hospital to monitor him for his safety. Denies f/c/cp/sob/d/c/urinary sxs. Physical Examination: Head: Present: Atraumatic, Normocephalic Eyes: EOMI Mouth: Present: dry Respiratory/Chest: Present: Clear to Auscultation, Good Air Exchange. No: Respiratory Distress, Accessory Muscle Use Cardiovascular: Present: Regular Rate and Rhythm, Normal S1, S2 Abdomen: Present: mild tenderness, normal bowel sounds. No: guarding, Distention, Rebound tenderness, or guarding Back: Present: Normal Inspection. No: CVA Tenderness Neurological: Present: CN II-XII Intact, Speech Normal, Motor Func Grossly Intact Skin: Present: Warm, Normal Color Psychiatric: Present: Alert, Oriented x 3, Normal Insight Assessment and Plan: Patient is a 51 year old male with a history of alcohol abuse, substance abuse, chronic pancreatitis, chronic aortic dissection s/p repair, hypertension, and hyperlipidemia who presents to ED for evaluation and treatment abdominal pain. Abdominal Pain - resolved - c/w to heart healthy ETOH Abuse and Withdrawal - thiamine, b12, folate supplement - [facility] protocol - Ativan 2mg q6 schedule discontinued - c/w ativan 2 mg q2 prn ETOH withdrawl sxs Methadone User - given methadone 130 mg today - monitor for withdrawl symptoms Transaminitis - AST and ALT trending down EKG Changes - continue off remote tele as patients vitals are stable and patient is asymptomatic Anemic - hgb trended and stable - monitor closely with daily CBC Hypoglycemia - resolved Hypomagnesemia - resolved Thrombocytopenia - trending up - c/w no subq heparin, no ppi - monitor closely via CBC Hx HTN - c/w Lopressor Hx HPL - CHL elevated - c/w statin PPX - scds - famotidine Patient seen, case discussed with, and plan approved by attending physician, Dr. Healy. Objective - Vital Signs/Intake and Output Vital Signs (last 24 hours): Temp Pulse Resp BP Pulse Ox 98.5 F 77 20 137/92 H 98 05/24/17 08:26 05/24/17 09:17 05/24/17 08:26 05/24/17 09:17 05/24/17 08:26 Intake and Output: 05/24/17 05/24/17 06:59 18:59 Intake Total 540 Balance 540 - Medications Medications: Current Medications Aspirin (Ecotrin) 81 mg PO DAILY [facility] Last Admin: 05/24/17 09:17 Dose: 81 mg Atorvastatin Calcium (Lipitor) 40 mg PO DAILY [facility] Last Admin: 05/24/17 09:17 Dose: 40 mg Famotidine (Pepcid) 20 mg PO DAILY [facility] Last Admin: 05/24/17 09:17 Dose: 20 mg Folic Acid (Folic Acid) 1 mg PO DAILY [facility] Last Admin: 05/24/17 09:17 Dose: 1 mg Lorazepam (Ativan) 2 mg IVP Q2H PRN; Protocol PRN Reason: Symptoms of alcohol withdrawl Last Admin: 05/22/17 20:41 Dose: 2 mg Lorazepam (Ativan) 1 mg IVP Q8 [facility] PRN Reason: Protocol Last Admin: 05/24/17 05:53 Dose: 1 mg Metoprolol Succinate (Toprol Xl) 25 mg PO DAILY [facility] Last Admin: 05/24/17 09:17 Dose: 25 mg Multivitamins (Thera Tab) 1 tab PO 0800 [facility] Last Admin: 05/24/17 08:06 Dose: 1 tab Thiamine HCl (Vitamin B1 Tab) 100 mg PO DAILY [facility] Last Admin: 05/24/17 09:17 Dose: 100 mg - Labs Labs: 05/23/17 07:03 05/23/17 07:03 Assessment and Plan (1) Chronic pancreatitis Status: Acute (2) Hx of repair of dissecting thoracic aortic aneurysm, [place] type A Status: Chronic (3) Hypertension Status: Chronic (4) Alcohol abuse Status: Acute (5) Elevated transaminase level Status: Acute (6) Anemia Status: Acute <CarmineasaZe quiroza - Last Filed: 05/24/17 14:23> Objective - Vital Signs/Intake and Output Vital Signs (last 24 hours): Temp Pulse Resp BP Pulse Ox 98.5 F 77 20 137/92 H 98 05/24/17 08:26 05/24/17 09:17 05/24/17 08:26 05/24/17 09:17 05/24/17 08:26 Intake and Output: 05/24/17 05/24/17 06:59 18:59 Intake Total 540 Balance 540 - Medications Medications: Current Medications Aspirin (Ecotrin) 81 mg PO DAILY [facility] Last Admin: 05/24/17 09:17 Dose: 81 mg Atorvastatin Calcium (Lipitor) 40 mg PO DAILY [facility] Last Admin: 05/24/17 09:17 Dose: 40 mg Famotidine (Pepcid) 20 mg PO DAILY [facility] Last Admin: 05/24/17 09:17 Dose: 20 mg Folic Acid (Folic Acid) 1 mg PO DAILY [facility] Last Admin: 05/24/17 09:17 Dose: 1 mg Lorazepam (Ativan) 2 mg IVP Q2H PRN; Protocol PRN Reason: Symptoms of alcohol withdrawl Last Admin: 05/22/17 20:41 Dose: 2 mg Metoprolol Succinate (Toprol Xl) 25 mg PO DAILY [facility] Last Admin: 05/24/17 09:17 Dose: 25 mg Multivitamins (Thera Tab) 1 tab PO 0800 [facility] Last Admin: 05/24/17 08:06 Dose: 1 tab Thiamine HCl (Vitamin B1 Tab) 100 mg PO DAILY [facility] Last Admin: 05/24/17 09:17 Dose: 100 mg - Labs Labs: 05/23/17 07:03 05/23/17 07:03 Attending/Attestation - Attestation I have personally seen and examined this patient.: Yes I have fully participated in the care of the patient.: Yes I have reviewed all pertinent clinical information, including history, physical exam and plan: Yes Notes (Text): 05/24/17 14:22 Attending note; Patient seen and examined with resident this morning. calm today. tolerating diet. we will try to discontinue vest whitney. 1;1 by the bedside. continue methadone. not needing Ativan for now. alcohol withdrawal symptoms improving slowly. Monitor closely. Upon discharge patient will follow up with Dr Marcello Vidales. 05/24/17 14:23
[2017-05-24 15:52] LABS: BASO # 0.03 K/mm3 (0.0-2.0); BASO % 0.5 % (0.0-3.0); EOS # 0.2 (0.0-0.7); EOS % 2.6 % (1.5-5.0); GRAN # 2.75 (1.4-6.5); GRAN % 44.1 % (50.0-68.0); HEMATOCRIT 31.8 % (42.0-52.0); LYMPH # 2.5 (1.2-3.4); LYMPH % 40.4 % (22.0-35.0); MEAN CELL VOLUME 77.4 fl (80.0-105.0); MEAN CORPUSCULAR HEMOGLOBIN 27.5 pg (25.0-35.0); MEAN CORPUSCULAR HGB CONC 35.5 g/dl (31.0-37.0); MEAN PLATELET VOLUME 9.4 fl (7.0-11.0); MONO # 0.8 (0.1-0.6); MONO % 12.4 % (1.0-6.0); RED CELL DISTRIBUTION WIDTH 17.1 % (11.5-14.5); WHITE BLOOD COUNT 6.2 10^3/ul (4.5-11.0)
[2017-05-24 16:00] LABS: ALB/GLOB RATIO 1.2 (1.1-1.8); ALKALINE PHOSPHATASE 73 U/L (38-126); ALT/SGPT 49 U/L (7-56); AST/SGOT 42 U/L (17-59); BILIRUBIN,TOTAL 0.4 mg/dL (0.2-1.3); BLOOD UREA NITROGEN 10 mg/dL (7-21); CALCIUM 9.3 mg/dL (8.4-10.5); CARBON DIOXIDE 33 mmol/L (21-33); CHLORIDE 100 mmol/L (98-107); GFR AFRICAN-AMERICAN > 60; GLUCOSE,RANDOM 92 mg/dL (70-110); POTASSIUM 4.5 mmol/L (3.6-5.0); SODIUM 141 mmol/L (132-148); TOTAL PROTEIN 6.6 g/dL (5.8-8.3)
[2017-05-24 17:16] VITALS: TEMP 98.4; O2SAT 99
[2017-05-25 07:20] LABS: BASO # 0.03 K/mm3 (0.0-2.0); BASO % 0.5 % (0.0-3.0); EOS # 0.2 (0.0-0.7); EOS % 2.5 % (1.5-5.0); GRAN # 2.72 (1.4-6.5); GRAN % 44.4 % (50.0-68.0); LYMPH # 2.3 (1.2-3.4); LYMPH % 37.9 % (22.0-35.0); MEAN CELL VOLUME 77.1 fl (80.0-105.0); MEAN CORPUSCULAR HEMOGLOBIN 26.8 pg (25.0-35.0); MEAN CORPUSCULAR HGB CONC 34.7 g/dl (31.0-37.0); MEAN PLATELET VOLUME 10.1 fl (7.0-11.0); MONO # 0.9 (0.1-0.6); MONO % 14.7 % (1.0-6.0); RED CELL DISTRIBUTION WIDTH 17.1 % (11.5-14.5); WHITE BLOOD COUNT 6.1 10^3/ul (4.5-11.0)
[2017-05-25 07:37] LABS: ALB/GLOB RATIO 1.4 (1.1-1.8); ALKALINE PHOSPHATASE 80 U/L (38-126); ALT/SGPT 56 U/L (7-56); AST/SGOT 37 U/L (17-59); BILIRUBIN,TOTAL 0.5 mg/dL (0.2-1.3); BLOOD UREA NITROGEN 13 mg/dL (7-21); CARBON DIOXIDE 32 mmol/L (21-33); CHLORIDE 102 mmol/L (95-110); GFR AFRICAN-AMERICAN > 60; GLUCOSE,RANDOM 91 mg/dL (70-110); SODIUM 142 mmol/L (132-148)
[2017-05-25] MEDS: Metoprolol Succinate 25 mg XL Tab PO SCH (09:59)
[2017-05-25] MEDS: Multivitamin Therapeutic Tab PO SCH (10:00)
[2017-05-25 10:02] VITALS: BP 121/85; PULSE 78
--- NOTE | 2017-05-25 12:47 | CP.PCM.PN ---
Addendum entered and electronically signed by Fernando Dior DO 05/25/17 12:47: Addition to Assessment and Plan: ETOH Abuse: - underlying cause of repetitive ETOH abuse may be depression- psychiatry is consulted- appreciate recommendations Original Note: <Fernando Dior - Last Filed: 05/25/17 12:41> Subjective - Date & Time of Evaluation Date of Evaluation: 05/25/17 Time of Evaluation: 10:00 - Subjective Subjective: Subjective: Patient seen and examined at bedside. Stable vital signs noted. Patient resting comfortably in bed without whitney vest. Patient is more alert this AM. Tolerating diet. Understands and appreciates that he will be kept in the hospital to monitor him for his safety. Tolerating diet. Denies fever, chills, chest pain, shortness of breath, abdominal pain, nausea, vomiting, diarrhea, constipation, and urinary symptoms. Physical Examination: Head: Present: Atraumatic, Normocephalic Eyes: EOMI Mouth: Present: moist Respiratory/Chest: Present: Clear to Auscultation, Good Air Exchange. No: Respiratory Distress, Accessory Muscle Use Cardiovascular: Present: Regular Rate and Rhythm, Normal S1, S2 Abdomen: Present: normal bowel sounds. No: guarding, Distention, Rebound tenderness, or guarding Back: No: CVA Tenderness Neurological: Present: Patient is awake, alert, responds to verbal stimuli, answers questions appropriately, follows commands, and moves extremities past midline Skin: Present: Warm, Normal Color Psychiatric: Present: Alert, Oriented x 3, Normal Insight Assessment and Plan: Patient is a 51 year old male with a history of alcohol abuse, substance abuse, chronic pancreatitis, chronic aortic dissection s/p repair, hypertension, and hyperlipidemia who presents to ED for evaluation and treatment abdominal pain. Abdominal Pain - resolved - c/w to heart healthy ETOH Abuse and Withdrawal - thiamine, b12, folate supplement - [facility] protocol - c/w ativan 2 mg q2 prn ETOH withdrawl sxs Methadone User - given methadone 130 mg today - monitor for withdrawl symptoms Transaminitis - AST and ALT within normal range EKG Changes - continue off remote tele as patients vitals are stable and patient is asymptomatic Anemic - hgb trended and stable - monitor closely with daily CBC Hypoglycemia - resolved Hypomagnesemia - resolved Thrombocytopenia - resolved, within normal range Hx HTN - c/w Lopressor Hx HPL - c/w statin PPX - scds - famotidine Gait Instability - physical therapy consulted- appreciate recommendations. Patient seen, case discussed with, and plan approved by attending physician, Dr. Healy. Objective - Vital Signs/Intake and Output Vital Signs (last 24 hours): Temp Pulse Resp BP Pulse Ox 98.4 F 78 20 121/85 99 05/24/17 16:00 05/25/17 09:59 05/24/17 16:00 05/25/17 09:59 05/24/17 16:00 Intake and Output: 05/25/17 05/25/17 06:59 18:59 Intake Total 540 Output Total 600 Balance -60 - Medications Medications: Current Medications Aspirin (Ecotrin) 81 mg PO DAILY [facility] Last Admin: 05/25/17 09:59 Dose: 81 mg Atorvastatin Calcium (Lipitor) 40 mg PO DAILY [facility] Last Admin: 05/25/17 09:59 Dose: 40 mg Famotidine (Pepcid) 20 mg PO DAILY [facility] Last Admin: 05/25/17 10:00 Dose: 20 mg Folic Acid (Folic Acid) 1 mg PO DAILY [facility] Last Admin: 05/25/17 09:59 Dose: 1 mg Lorazepam (Ativan) 2 mg IVP Q2H PRN; Protocol PRN Reason: Symptoms of alcohol withdrawl Last Admin: 05/22/17 20:41 Dose: 2 mg Metoprolol Succinate (Toprol Xl) 25 mg PO DAILY [facility] Last Admin: 05/25/17 09:59 Dose: 25 mg Multivitamins (Thera Tab) 1 tab PO 0800 [facility] Last Admin: 05/25/17 10:00 Dose: 1 tab Thiamine HCl (Vitamin B1 Tab) 100 mg PO DAILY [facility] Last Admin: 05/25/17 09:59 Dose: 100 mg - Labs Labs: 05/25/17 07:14 05/25/17 07:14 Assessment and Plan (1) Chronic pancreatitis Status: Acute (2) Hx of repair of dissecting thoracic aortic aneurysm, [place] type A Status: Chronic (3) Hypertension Status: Chronic (4) Alcohol abuse Status: Acute (5) Elevated transaminase level Status: Acute (6) Anemia Status: Acute <Karina Healy - Last Filed: 05/25/17 16:09> Objective - Vital Signs/Intake and Output Vital Signs (last 24 hours): Temp Pulse Resp BP Pulse Ox 98.4 F 78 20 121/85 99 05/24/17 16:00 05/25/17 09:59 05/24/17 16:00 05/25/17 09:59 05/24/17 16:00 Intake and Output: 05/25/17 05/25/17 06:59 18:59 Intake Total 540 Output Total 600 Balance -60 - Medications Medications: Current Medications Aspirin (Ecotrin) 81 mg PO DAILY [facility] Last Admin: 05/25/17 09:59 Dose: 81 mg Atorvastatin Calcium (Lipitor) 40 mg PO DAILY [facility] Last Admin: 05/25/17 09:59 Dose: 40 mg Famotidine (Pepcid) 20 mg PO DAILY [facility] Last Admin: 05/25/17 10:00 Dose: 20 mg Folic Acid (Folic Acid) 1 mg PO DAILY [facility] Last Admin: 05/25/17 09:59 Dose: 1 mg Lorazepam (Ativan) 2 mg IVP Q2H PRN; Protocol PRN Reason: Symptoms of alcohol withdrawl Last Admin: 05/22/17 20:41 Dose: 2 mg Metoprolol Succinate (Toprol Xl) 25 mg PO DAILY [facility] Last Admin: 05/25/17 09:59 Dose: 25 mg Multivitamins (Thera Tab) 1 tab PO 0800 [facility] Last Admin: 05/25/17 10:00 Dose: 1 tab Thiamine HCl (Vitamin B1 Tab) 100 mg PO DAILY [facility] Last Admin: 05/25/17 09:59 Dose: 100 mg - Labs Labs: 05/25/17 07:14 05/25/17 07:14 Attending/Attestation - Attestation I have personally seen and examined this patient.: Yes I have fully participated in the care of the patient.: Yes I have reviewed all pertinent clinical information, including history, physical exam and plan: Yes Notes (Text): 05/25/17 16:08 Attending note; Patient seen and examined with resident this morning. calm today. tolerating diet. patient is alert, awake and oriented 3. Tolerating diet. Vest [place] discontinued yesterday. Psychiatric evaluation requested. continue methadone. not needing Ativan for now. possible discharge home today after psychiatric evaluation and physical therapy evaluation. Upon discharge patient will follow up with Dr Marcello Vidales.
--- NOTE | 2017-05-25 14:59 | CP.PCM.DIS ---
<Fernando Dior - Last Filed: 05/25/17 14:57> Provider - Provider Date of Admission: 05/19/17 12:56 Attending physician: Karina Healy MD Time Spent in preparation of Discharge (in minutes): 45 Diagnosis - Discharge Diagnosis (1) Chronic pancreatitis Status: Acute Priority: Medium (2) Hx of repair of dissecting thoracic aortic aneurysm, Ashutosh type A Status: Chronic Priority: Medium (3) Hypertension Status: Chronic Priority: Medium (4) Alcohol abuse Status: Acute Priority: Medium (5) Elevated transaminase level Status: Acute Priority: Medium (6) Anemia Status: Acute Priority: Medium Hospital Course - Lab Results Lab Results: Most Recent Lab Values WBC 6.1 10^3/ul (4.5-11.0) 05/25/17 07:14 RBC 4.41 10^6/uL (3.5-6.1) 05/25/17 07:14 Hgb 11.8 g/dL (14.0-18.0) L 05/25/17 07:14 Hct 34.0 % (42.0-52.0) L 05/25/17 07:14 MCV 77.1 fl (80.0-105.0) L 05/25/17 07:14 MCH 26.8 pg (25.0-35.0) 05/25/17 07:14 MCHC 34.7 g/dl (31.0-37.0) 05/25/17 07:14 RDW 17.1 % (11.5-14.5) H 05/25/17 07:14 Plt Count 147 10^3/uL (120.0-450.0) 05/25/17 07:14 MPV 10.1 fl (7.0-11.0) 05/25/17 07:14 Gran % 44.4 % (50.0-68.0) L 05/25/17 07:14 Lymph % (Auto) 37.9 % (22.0-35.0) H 05/25/17 07:14 Collin % (Auto) 14.7 % (1.0-6.0) H 05/25/17 07:14 Eos % (Auto) 2.5 % (1.5-5.0) 05/25/17 07:14 Baso % (Auto) 0.5 % (0.0-3.0) 05/25/17 07:14 Gran # 2.72 (1.4-6.5) 05/25/17 07:14 Lymph # 2.3 (1.2-3.4) 05/25/17 07:14 Collin # 0.9 (0.1-0.6) H 05/25/17 07:14 Eos # 0.2 (0.0-0.7) 05/25/17 07:14 Baso # 0.03 K/mm3 (0.0-2.0) 05/25/17 07:14 Sodium 142 mmol/L (132-148) 05/25/17 07:14 Potassium 5.0 mmol/L (3.6-5.0) 05/25/17 07:14 Chloride 102 mmol/L (95-110) 05/25/17 07:14 Carbon Dioxide 32 mmol/L (21-33) 05/25/17 07:14 Anion Gap 13 (10-20) 05/25/17 07:14 BUN 13 mg/dL (7-21) 05/25/17 07:14 Creatinine 0.7 mg/dL (0.8-1.5) L 05/25/17 07:14 Est GFR ( Amer) > 60 05/25/17 07:14 Est GFR (Non-Af Amer) > 60 05/25/17 07:14 POC Glucose (mg/dL) 118 mg/dL (65-110) H 05/22/17 22:45 Random Glucose 91 mg/dL (70-110) 05/25/17 07:14 Calcium 10.0 mg/dL (8.4-10.5) 05/25/17 07:14 Phosphorus 4.5 mg/dL (2.5-4.5) 05/21/17 06:30 Magnesium 1.4 mg/dL (1.7-2.2) L 05/22/17 12:14 Total Bilirubin 0.5 mg/dL (0.2-1.3) 05/25/17 07:14 AST 37 U/L (17-59) 05/25/17 07:14 ALT 56 U/L (7-56) 05/25/17 07:14 Alkaline Phosphatase 80 U/L (38-126) 05/25/17 07:14 Lactate Dehydrogenase 745 U/L (333-699) H 05/18/17 09:15 Total Creatine Kinase 86 U/L (35-230) 05/18/17 09:15 Troponin I 0.03 ng/mL 05/19/17 05:40 Total Protein 7.0 g/dL (5.8-8.3) 05/25/17 07:14 Albumin 4.0 g/dL (3.0-4.8) 05/25/17 07:14 Globulin 2.9 gm/dL 05/25/17 07:14 Albumin/Globulin Ratio 1.4 (1.1-1.8) 05/25/17 07:14 Triglycerides 57 mg/dL (35-160) 05/18/17 09:15 Cholesterol 223 mg/dL (130-200) H 05/18/17 09:15 LDL Cholesterol Direct 63 mg/dL (0-129) 05/18/17 09:15 HDL Cholesterol 156 mg/dL (29-60) H 05/18/17 09:15 Lipase 271 U/L (23-300) 05/23/17 11:30 Urine Color Yellow (YELLOW) 05/18/17 10:35 Urine Appearance Sl cloudy (CLEAR) 05/18/17 10:35 Urine pH 6.0 (4.7-8.0) 05/18/17 10:35 Ur Specific [place] >= 1.030 (1.005-1.035) 05/18/17 10:35 Urine Protein 30 mg/dL (<30 mg/dL) H 05/18/17 10:35 Urine Glucose (UA) Negative mg/dL (NEGATIVE) 05/18/17 10:35 Urine Ketones >=80 mg/dL (NEGATIVE) 05/18/17 10:35 Urine Blood Negative (NEGATIVE) 05/18/17 10:35 Urine Nitrate Negative (NEGATIVE) 05/18/17 10:35 Urine Bilirubin Negative (NEGATIVE) 05/18/17 10:35 Urine Urobilinogen 1.0 E.U./dL (<1 E.U./dL) H 05/18/17 10:35 Ur Leukocyte Esterase Negative Singh/uL (NEGATIVE) 05/18/17 10:35 Urine RBC 0 - 2 /hpf (0-2) 05/18/17 10:35 Urine WBC 0 - 2 /hpf (0-6) 05/18/17 10:35 Urine Other Mucus 05/18/17 10:35 Alcohol, Quantitative 23 mg/dL (0-10) H 05/18/17 09:15 - Hospital Course Hospital Course: Patient is a 51 year old male with a history of alcohol abuse, substance abuse, chronic pancreatitis, chronic aortic dissection s/p repair, hypertension, and hyperlipidemia who was admitted for evaluation and treatment abdominal pain. With the use of physical examinations, lab work, and imaging the patient was diagnosed with and treated for acute on chronic pancreatitis, ETOH withdrawl, along with the patients other chronic medical conditions. During their hospital stay the patient was seen by gastroenterology and their recommendations were both appreciated and utilized in the care for this patient.During their hospital stay the patient underwent a CT angiogram and gallbladder ultrasound which were reviewed, appreciated, and utilized in the management of the patients clinical course. Patient was treated with intravenous fluids, ativan, vitamins, antihypertensive medications, and other empiric/therapeutic medications. Patients abdominal pain has resolved and he able to tolerate a diet. He was kept in the hospital for monitoring after experiencing a fall. Physical therapy and psychiatry have cleared the patient for discharge. At this time the patient is medically stable for discharge. Patient understands and appreciates discharge plan. Patient instructed to follow up with primary care physicians and referrals within three to five days from discharge. Furthermore, the patient is instructed to take medications as prescribed and to return to emergency room for evaluation of intractable headache, fever, chills, dizziness, chest pain, shortness of breath, abdominal pain, nausea, vomiting, diarrhea, constipation, and urinary symptoms. This is a brief summary of the patients hospital course. Please see patient chart for full details. Discharge Plan - Discharge Medications Prescriptions: chlordiazePOXIDE [Chlordiazepoxide HCl] 5 mg PO TID 2 Days cap Multivitamin Therapeutic Tab [Thera Tab] 1 tab PO 0800 14 Days tab Thiamine [Vitamin B1 Tab] 100 mg PO DAILY 14 Days tab - Follow Up Plan Condition: FAIR Disposition: HOME/ ROUTINE Instructions: Pancreatitis (DC), Narcotic Abuse (DC), Abuse of Alcohol (DC), Anemia (DC) Additional Instructions: Patient Instructions: Take medications as prescribed. Follow up with PMD and referrals within three to five days from discharge. Return to the emergency room for evaluation of intractable headache, fever, chills, dizziness, chest pain, shortness of breath, abdominal pain, nausea, vomiting, diarrhea, constipation, and urinary symptoms. Referrals: Marcello Rodrigues MD [Family Provider] - Tr Posada DO [Staff Provider] - <Karina Healy - Last Filed: 05/25/17 16:10> Provider - Provider Date of Admission: 05/19/17 12:56 Attending physician: Karina Healy MD Hospital Course - Lab Results Lab Results: Most Recent Lab Values WBC 6.1 10^3/ul (4.5-11.0) 05/25/17 07:14 RBC 4.41 10^6/uL (3.5-6.1) 05/25/17 07:14 Hgb 11.8 g/dL (14.0-18.0) L 05/25/17 07:14 Hct 34.0 % (42.0-52.0) L 05/25/17 07:14 MCV 77.1 fl (80.0-105.0) L 05/25/17 07:14 MCH 26.8 pg (25.0-35.0) 05/25/17 07:14 MCHC 34.7 g/dl (31.0-37.0) 05/25/17 07:14 RDW 17.1 % (11.5-14.5) H 05/25/17 07:14 Plt Count 147 10^3/uL (120.0-450.0) 05/25/17 07:14 MPV 10.1 fl (7.0-11.0) 05/25/17 07:14 Gran % 44.4 % (50.0-68.0) L 05/25/17 07:14 Lymph % (Auto) 37.9 % (22.0-35.0) H 05/25/17 07:14 Collin % (Auto) 14.7 % (1.0-6.0) H 05/25/17 07:14 Eos % (Auto) 2.5 % (1.5-5.0) 05/25/17 07:14 Baso % (Auto) 0.5 % (0.0-3.0) 05/25/17 07:14 Gran # 2.72 (1.4-6.5) 05/25/17 07:14 Lymph # 2.3 (1.2-3.4) 05/25/17 07:14 Collin # 0.9 (0.1-0.6) H 05/25/17 07:14 Eos # 0.2 (0.0-0.7) 05/25/17 07:14 Baso # 0.03 K/mm3 (0.0-2.0) 05/25/17 07:14 Sodium 142 mmol/L (132-148) 05/25/17 07:14 Potassium 5.0 mmol/L (3.6-5.0) 05/25/17 07:14 Chloride 102 mmol/L (95-110) 05/25/17 07:14 Carbon Dioxide 32 mmol/L (21-33) 05/25/17 07:14 Anion Gap 13 (10-20) 05/25/17 07:14 BUN 13 mg/dL (7-21) 05/25/17 07:14 Creatinine 0.7 mg/dL (0.8-1.5) L 05/25/17 07:14 Est GFR ( Amer) > 60 05/25/17 07:14 Est GFR (Non-Af Amer) > 60 05/25/17 07:14 POC Glucose (mg/dL) 118 mg/dL (65-110) H 05/22/17 22:45 Random Glucose 91 mg/dL (70-110) 05/25/17 07:14 Calcium 10.0 mg/dL (8.4-10.5) 05/25/17 07:14 Phosphorus 4.5 mg/dL (2.5-4.5) 05/21/17 06:30 Magnesium 1.4 mg/dL (1.7-2.2) L 05/22/17 12:14 Total Bilirubin 0.5 mg/dL (0.2-1.3) 05/25/17 07:14 AST 37 U/L (17-59) 05/25/17 07:14 ALT 56 U/L (7-56) 05/25/17 07:14 Alkaline Phosphatase 80 U/L (38-126) 05/25/17 07:14 Lactate Dehydrogenase 745 U/L (333-699) H 05/18/17 09:15 Total Creatine Kinase 86 U/L (35-230) 05/18/17 09:15 Troponin I 0.03 ng/mL 05/19/17 05:40 Total Protein 7.0 g/dL (5.8-8.3) 05/25/17 07:14 Albumin 4.0 g/dL (3.0-4.8) 05/25/17 07:14 Globulin 2.9 gm/dL 05/25/17 07:14 Albumin/Globulin Ratio 1.4 (1.1-1.8) 05/25/17 07:14 Triglycerides 57 mg/dL (35-160) 05/18/17 09:15 Cholesterol 223 mg/dL (130-200) H 05/18/17 09:15 LDL Cholesterol Direct 63 mg/dL (0-129) 05/18/17 09:15 HDL Cholesterol 156 mg/dL (29-60) H 05/18/17 09:15 Lipase 271 U/L (23-300) 05/23/17 11:30 Urine Color Yellow (YELLOW) 05/18/17 10:35 Urine Appearance Sl cloudy (CLEAR) 05/18/17 10:35 Urine pH 6.0 (4.7-8.0) 05/18/17 10:35 Ur Specific Lowell >= 1.030 (1.005-1.035) 05/18/17 10:35 Urine Protein 30 mg/dL (<30 mg/dL) H 05/18/17 10:35 Urine Glucose (UA) Negative mg/dL (NEGATIVE) 05/18/17 10:35 Urine Ketones >=80 mg/dL (NEGATIVE) 05/18/17 10:35 Urine Blood Negative (NEGATIVE) 05/18/17 10:35 Urine Nitrate Negative (NEGATIVE) 05/18/17 10:35 Urine Bilirubin Negative (NEGATIVE) 05/18/17 10:35 Urine Urobilinogen 1.0 E.U./dL (<1 E.U./dL) H 05/18/17 10:35 Ur Leukocyte Esterase Negative Singh/uL (NEGATIVE) 05/18/17 10:35 Urine RBC 0 - 2 /hpf (0-2) 05/18/17 10:35 Urine WBC 0 - 2 /hpf (0-6) 05/18/17 10:35 Urine Other Mucus 05/18/17 10:35 Alcohol, Quantitative 23 mg/dL (0-10) H 05/18/17 09:15 Attending/Attestation - Attestation I have personally seen and examined this patient.: Yes I have fully participated in the care of the patient.: Yes I have reviewed all pertinent clinical information, including history, physical exam and plan: Yes Notes (Text): 05/25/17 16:10 Attending note; Patient seen and examined with resident this morning. calm today. tolerating diet. patient is alert, awake and oriented 3. Tolerating diet. Vest [place] discontinued yesterday. Psychiatric evaluation appreciated. Patient is ambulating with cane. discharge home today. Upon discharge patient will follow up with Dr Marcello Vidales. Diagnosis; Chronic alcohol abuse Pancreatitis History of aoritic aneurysm repair Depression
--- NOTE | 2017-05-25 19:02 | CON ---
HISTORY OF PRESENT ILLNESS: Shortly, the patient is 51-year-old male with long history of alcohol use disorder, polysubstance abuse and dependence, chronic pancreatitis, multiple medical issues including chronic aortic dissection. The patient was admitted on the medical site for abdominal pain. Psych consult was called for evaluation of possible depression because the patient requested to have "somebody to talk too". The patient was seen and examined, discussed with the primary care physician, Dr. Healy. The patient presented to be alert and oriented, pleasant, cooperative. The patient seems to have good understanding what is going on with him from the medical standpoint. The patient said that he does not feel depressed. He does not have any thoughts of harming himself or others. He denied hearing voices, denied seeing things. The patient has future oriented plans in order to pain disability for his medical issues. The patient also reported that he has followup appointment at [facility] methadone program and the patient reported that he is on 130 mg of methadone daily. His future plans are to be weaned off from the methadone in near future. The patient said that he lives with his mother and father in [place]. PHYSICAL EXAMINATION: VITAL SIGNS: Reviewed, seems to be stable. Temperature is 98.4, pulse 78, blood pressure 121/82, respiration 20, oxygen saturation is 99. MEDICATIONS: Reviewed. Aspirin, Lipitor, Pepcid, folic acid, Ativan, Toprol, multivitamins, thiamine, also methadone 30 mg p.o. daily. LABORATORY DATA: Labs reviewed. Most recent was from today. Hemoglobin and hematocrit 11.8 and 34.0 respectively. Chemistry also reviewed. Urinalysis reviewed. Toxicology alcohol was less than 23. This property underwriter also reviewed the previous history. The patient was admitted for detox in 2015 at [facility]. There is no history of suicidal attempts and there was no history of psych hospitalization. MENTAL STATUS EXAMINATION: The patient presented to be alert and oriented, pleasant, cooperative, acceptable personal hygiene, intermittent eye contact. Speech was normal rate, tone, quality and quantity. Mood described as "I feel better". Affect was constricted but reactive. Mood congruent. Thought process coherent, goal directed. Thought content: The patient denied visual, auditory, or tactile hallucinations. Denied paranoid ideation. The patient denied thoughts of harming himself or others. Denied intent or plan. Insight and judgment fair. Impulses are well controlled. IMPRESSION: The patient has history of alcohol use disorder, chronic pancreatitis, the patient also has history of opioid disorder in remission, on methadone maintenance program. PLAN: Continue current management. Continue current medication, multivitamins, thiamine and folic acid and dose of methadone was confirmed by medical team. The patient has followup appointment at [facility] methadone program. The patient denied thoughts of harming himself or others. Denied intent or plan. The patient is not in any imminent danger to self or others. This property underwriter will sign off from this case. This discussed with Dr. Healy. Should you have any questions give me a call back. Thank you very much for letting me to participate in care of your patient. Kim Brooks MD
== END 2017-05-25 16:23 | disposition home or self-care (01) | DRG 204 ==
LOC: ED 08:41 → ERH 13:37 → 3RNO 23:18 → OBSVTOIN 05-19 12:56 → 3RNO 05-19 16:57
PROVIDERS: ADMIT Internal Medicine; ATTEND Internal Medicine
PROC: HZ81ZZZ Medication Management for Substance Abuse Treatment, Methadone Maintenance (ICD-10-PCS; principal; 2017-05-19)
DX: K85.20 Alcohol induced acute pancreatitis without necrosis or infection (principal); F10.231 Alcohol dependence with withdrawal delirium; F11.20 Opioid dependence, uncomplicated; D69.6 Thrombocytopenia, unspecified; E83.42 Hypomagnesemia; K86.0 Alcohol-induced chronic pancreatitis; I27.20 Pulmonary hypertension, unspecified; I10 Essential (primary) hypertension; D64.9 Anemia, unspecified; E78.5 Hyperlipidemia, unspecified; E16.2 Hypoglycemia, unspecified; K29.70 Gastritis, unspecified, without bleeding; R26.9 Unspecified abnormalities of gait and mobility; Y90.1 Blood alcohol level of 20-39 mg/100 ml; Z72.0 Tobacco use; Z86.79 Personal history of other diseases of the circulatory system

== ENCOUNTER 2017-08-02 04:41 | Inpatient (IN) | payer OTHER ==
[2017-08-02] MEDS ORDERED: Sodium Chloride 0.9% 1,000 ML IV SCH (05:00)
[2017-08-02] MEDS ORDERED: Morphine 4 mg/ml ISec IVP STA ×2 (05:00→08:18)
--- NOTE | 2017-08-02 05:09 | ED PDOC ---
Arrival/HPI - General Chief Complaint: Abdominal Pain Time Seen by Provider: 08/02/17 04:43 Historian: Patient - History of Present Illness Narrative History of Present Illness (Text): 08/02/17 04:53 51 year old male, whose past medical history includes alcohol abuse, substance abuse, chronic pancreatitis, chronic aortic dissection s/p repair, hypertension , and hyperlipidemia, presents to the emergency department complaining of right upper abdominal pain associated with vomiting. Patient states his "pancreatitis is acting up". He states he was drinking and vomited yesterday. Patient denies any fever, chills, chest pain, shortness of breath, diarrhea, urinary symptoms, back pain, neck pain, headache, dizziness, or any other complaints. PMD: Dr. Rodrigues Time/Duration: 24 hours Symptom Onset: Sudden Symptom Course: Unchanged Activities at Onset: Light Context: Home Past Medical History - Provider Review Nursing Documentation Reviewed: Yes - Infectious Disease Hx of Infectious Diseases: None - Tetanus Immunization Tetanus Immunization: Unknown - Cardiac Hx Cardiac Disorders: Yes Hx Heart Murmur: Yes Hx Hypertension: Yes Other/Comment: aortic dissected repair/aaa 2014 - Pulmonary Hx Respiratory Disorders: No Hx Tuberculosis: No - Neurological Hx Neurological Disorder: No HX Cerebrovascular Accident: No Hx Seizures: No - HEENT Hx HEENT Disorder: No - Renal Hx Renal Disorder: No - Endocrine/Metabolic Hx Endocrine Disorders: No - Hematological/Oncological Hx Blood Disorders: Yes Hx Anemia: Yes Hx Cancer: No - Integumentary Hx Dermatological Disorder: No - Musculoskeletal/Rheumatological Hx Musculoskeletal Disorders: Yes Hx Arthritis: Yes (knees and lower back) Hx Back Pain: Yes Hx Falls: No Hx Unsteady Gait: No - Gastrointestinal Hx Gastrointestinal Disorders: Yes Hx Pancreatitis: Yes - Genitourinary/Gynecological Hx Genitourinary Disorders: No Hx Sexually Transmitted Diseases: No - Psychiatric Hx Psychophysiologic Disorder: No Hx Substance Use: Yes (on methadone program) Other/Comment: denies substance abuse but on methadone program with [facility], takes methadone 130 mg po daily as per pt, drinks 1/2 pt erika a day, smokes over 10 cigs a day - Past Surgical History Past Surgical History: No Previous - Surgical History Hx Abdominal Aortic Aneurysm Repair: Yes Hx Open Heart Surgery: Yes ([facility] REPAIR) Other/Comment: aneurysm in his chest December 2014 - Anesthesia Hx Anesthesia: Yes Hx Anesthesia Reactions: No Hx Malignant Hyperthermia: No - Suicidal Assessment Feels Threatened In Home Enviroment: No Family/Social History - Physician Review Nursing Documentation Reviewed: Yes Family/Social History: No Known Family HX Smoking Status: Heavy Smoker > 10 Cigarettes Daily Hx Alcohol Use: Yes (1/2 pt erika daily) Frequency of alcohol use: Daily Hx Substance Use: Yes (on methadone program) Substance used: heroin Hx Substance Use Treatment: Yes Allergies/Home Meds Allergies/Adverse Reactions: Allergies No Known Allergies Allergy (Verified 07/21/17 11:25) Home Medications: Home Meds Medication Instructions Recorded Confirmed Methadone 130 mg PO DAILY 05/18/17 08/02/17 Aspirin [Ecotrin] 81 mg PO DAILY 05/19/17 08/02/17 Atorvastatin [Lipitor] 40 mg PO DAILY 05/19/17 08/02/17 Famotidine [Pepcid] 20 mg PO DAILY 05/19/17 08/02/17 Ferrous Sulfate [Feosol] 325 mg PO BID 05/19/17 08/02/17 Folic Acid 1 mg PO DAILY 05/19/17 08/02/17 Metoprolol Succinate [Toprol XL] 25 mg PO DAILY 05/19/17 08/02/17 Ferrous Sulfate [Feosol] 325 mg PO DAILY 08/02/17 08/02/17 Review of Systems - Physician Review All systems were reviewed & negative as marked: Yes - Review of Systems Constitutional: absent: Fevers, Other (Chills) Respiratory: absent: SOB Cardiovascular: absent: Chest Pain Gastrointestinal: Abdominal Pain, Vomiting. absent: Diarrhea Genitourinary Male: absent: Dysuria, Frequency, Hematuria Musculoskeletal: absent: Back Pain, Neck Pain Neurological: absent: Headache, Dizziness Physical Exam Vital Signs Reviewed: Yes Vital Signs Temp Pulse Resp BP Pulse Ox 08/02/17 06:53 84 16 146/94 H 100 08/02/17 04:49 98.1 F 107 H 20 142/91 H 100 Temperature: Afebrile Blood Pressure: Normal Respiratory Rate: Normal Appearance: Positive for: Well-Appearing, Non-Toxic, Comfortable Pain Distress: None Mental Status: Positive for: Alert and Oriented X 3 - Systems Exam Head: Present: Atraumatic, Normocephalic Pupils: Present: PERRL Extroacular Muscles: Present: EOMI Conjunctiva: Present: Normal Mouth: Present: Moist Mucous Membranes Neck: Present: Normal Range of Motion Respiratory/Chest: Present: Clear to Auscultation, Good Air Exchange. No: Respiratory Distress, Accessory Muscle Use Cardiovascular: Present: Regular Rate and Rhythm, Normal S1, S2. No: Murmurs Abdomen: Present: Tenderness (LUQ tenderness ), Normal Bowel Sounds. No: Distention, Peritoneal Signs Back: Present: Normal Inspection Upper Extremity: Present: Normal Inspection. No: Cyanosis, Edema Lower Extremity: Present: Normal Inspection. No: Edema Neurological: Present: GCS=15, CN II-XII Intact, Speech Normal Skin: Present: Warm, Dry, Normal Color. No: Rashes Psychiatric: Present: Alert, Oriented x 3, Normal Insight, Normal Concentration Medical Decision Making ED Course and Treatment: 08/02/17 04:53 Impression: 51 year old male who presents complaining of LUQ pain associated with vomiting. Plan: -- Labs -- Morphine -- IV Fluids -- Zofran Inj -- Reassess and disposition Prior Visits: Notes and results from previous visits were reviewed. Patient was last seen in the emergency department on 05/18/17 presents complaining of diffuse nonlocalized abdominal pain and vomiting after drinking last night. Patient was admitted. Progress Notes: 08/02/17 05:31 - Lab Interpretations Lab Results: 08/02/17 05:10 08/02/17 05:10 Lab Results 08/02/17 05:10: WBC 9.5 D, RBC 4.94, Hgb 13.8 L D, Hct 38.8 L, MCV 78.5 L, MCH 27.9, MCHC 35.6, RDW 15.3 H, Plt Count 114 L, MPV 10.0 08/02/17 05:10: Alcohol, Quantitative < 10 08/02/17 05:10: Sodium 134, Potassium 4.9, Chloride 95 L, Carbon Dioxide 14 L, Anion Gap 29 H, BUN 22 H, Creatinine 0.9, Est GFR ( Amer) > 60, Est GFR ( Non-Af Amer) > 60, Random Glucose 99, Calcium 9.5, Total Bilirubin 1.0, AST 108 H D, ALT 70 H, Alkaline Phosphatase 96, Total Protein 7.9, Albumin 4.6, Globulin 3.3, Albumin/Globulin Ratio 1.4, Lipase 1372 H I have reviewed the lab results: Yes - Medication Orders Current Medication Orders: Sodium Chloride (Sodium Chloride 0.9%) 1,000 mls @ 200 mls/hr IV .Q5H CESAR Last Admin: 08/02/17 05:27 Dose: 200 mls/hr eMAR Start Stop Document 08/02/17 05:27 YP (Rec: 08/02/17 05:27 YP [id number]) Intravenous Solution Start Date 08/02/17 Start Time 05:27 Discontinued Medications Sodium Chloride (Sodium Chloride 0.9%) 1,000 mls @ 999 mls/hr IV .Q1H1M STA Stop: 08/02/17 07:06 Last Admin: 08/02/17 06:20 Dose: 999 mls/hr eMAR Start Stop Document 08/02/17 06:20 YP (Rec: 08/02/17 06:21 YP [id number]) Intravenous Solution Start Date 08/02/17 Start Time 06:21 End Date 08/02/17 End time 07:21 Total Infusion Time 60 Morphine Sulfate (Morphine) 4 mg IVP STAT STA Stop: 08/02/17 05:01 Last Admin: 08/02/17 05:27 Dose: 4 mg MAR Pain Assessment Document 08/02/17 05:27 YP (Rec: 08/02/17 05:28 YP [id number]) Pain Reassessment Is this a pain reassessment? No Sleep Is patient sleeping during reassessment? No Presence of Pain Presence of Pain Yes IVP Administration Document 08/02/17 05:27 YP (Rec: 08/02/17 05:28 YP [id number]) Charges for Administration # of IVP Administrations 1 Ondansetron HCl (Zofran Inj) 4 mg IVP ONCE ONE Stop: 08/02/17 05:01 Last Admin: 08/02/17 05:28 Dose: 4 mg IVP Administration Document 08/02/17 05:28 YP (Rec: 08/02/17 05:28 YP [id number]) Charges for Administration # of IVP Administrations 1 - Transfer of Care Patient signed out to :Francisco Javier Crowell Pending Labs:: labs/reassess/final disposition - Scribe Statement The provider has reviewed the documentation as recorded by the Adrien Amato Provider Scribe Attestation: All medical record entries made by the Scribe were at my direction and personally dictated by me. I have reviewed the chart and agree that the record accurately reflects my personal performance of the history, physical exam, medical decision making, and the department course for this patient. I have also personally directed, reviewed, and agree with the discharge instructions and disposition. Disposition/Present on Arrival - Present on Arrival Any Indicators Present on Arrival: No History of DVT/PE: No History of Uncontrolled Diabetes: Yes Urinary Catheter: No History of Decub. Ulcer: No History Surgical Site Infection Following: None - Disposition Have Diagnosis and Disposition been Completed?: No Diagnosis: Pancreatitis, Abdominal pain Disposition Time: 07:15 Condition: STABLE Forms: [employer] ([place])
[2017-08-02 05:29] LABS: MEAN CELL VOLUME 78.5 fl (80.0-105.0); MEAN CORPUSCULAR HEMOGLOBIN 27.9 pg (25.0-35.0); MEAN CORPUSCULAR HGB CONC 35.6 g/dl (31.0-37.0); RBC 4.94 10^6/uL (3.5-6.1); RED CELL DISTRIBUTION WIDTH 15.3 % (11.5-14.5); WHITE BLOOD COUNT 9.5 10^3/ul (4.5-11.0)
[2017-08-02 05:46] LABS: HEMOGLOBIN 13.8 g/dL (14.0-18.0)
[2017-08-02 06:01] LABS: ALB/GLOB RATIO 1.4 (1.1-1.8); ALBUMIN 4.6 g/dL (3.0-4.8); ALT/SGPT 70 U/L (7-56); AST/SGOT 108 U/L (17-59); BLOOD UREA NITROGEN 22 mg/dL (7-21); CALCIUM 9.5 mg/dL (8.4-10.5); GFR AFRICAN-AMERICAN > 60; GFR NON-AFRICAN AMERICAN > 60; LIPASE 1372 U/L (23-300)
[2017-08-02] MEDS ORDERED: Sodium Chloride 0.9% 1,000 ML IV STA ×2 (06:06→07:30)
[2017-08-02 06:49] LABS: VENOUS BLOOD GAS BASE EXCESS -8.4 mmol/L (0.0-2.0); VENOUS BLOOD GAS PO2 71 mm/Hg (30-55); VENOUS BLOOD PH 7.33 (7.32-7.43)
--- NOTE | 2017-08-02 07:32 | ED PDOC ---
Physical Exam Vital Signs Reviewed: Yes Vital Signs Temp Pulse Resp BP Pulse Ox 08/02/17 06:53 84 16 146/94 H 100 08/02/17 04:49 98.1 F 107 H 20 142/91 H 100 Temperature: Afebrile Blood Pressure: Hypertensive Pulse: Tachycardic Respiratory Rate: Normal Appearance: Positive for: Well-Appearing, Non-Toxic, Comfortable Pain Distress: None Mental Status: Positive for: Alert and Oriented X 3 Medical Decision Making ED Course and Treatment: 08/02/17 07:31: Patient endorsed to me by Dr. Guerra. Follow- up with labs. Will re-evaluate and disposition. 08/02/17 07:43: Case discussed in detail with Dr. Gomez who agrees to place this patient on the medical floor for pancreatitis. - Lab Interpretations Lab Results: 08/02/17 05:10 08/02/17 05:10 Lab Results 08/02/17 06:30: pO2 71 H, VBG pH 7.33, VBG pCO2 31.0 L, VBG HCO3 16.3 L, VBG Total CO2 17.3 L, VBG O2 Sat (Calc) 95.5 H, VBG Base Excess -8.4 L, VBG Potassium 5.4 H, Glucose 102, Lactate 3.0 H, FiO2 21.0, Sodium 132.0, Chloride 95.0 L, Venous Blood Potassium 5.4 H 08/02/17 05:10: WBC 9.5 D, RBC 4.94, Hgb 13.8 L D, Hct 38.8 L, MCV 78.5 L, MCH 27.9, MCHC 35.6, RDW 15.3 H, Plt Count 114 L, MPV 10.0 08/02/17 05:10: Alcohol, Quantitative < 10 08/02/17 05:10: Sodium 134, Potassium 4.9, Chloride 95 L, Carbon Dioxide 14 L, Anion Gap 29 H, BUN 22 H, Creatinine 0.9, Est GFR ( Amer) > 60, Est GFR ( Non-Af Amer) > 60, Random Glucose 99, Calcium 9.5, Total Bilirubin 1.0, AST 108 H D, ALT 70 H, Alkaline Phosphatase 96, Total Protein 7.9, Albumin 4.6, Globulin 3.3, Albumin/Globulin Ratio 1.4, Lipase 1372 H - Medication Orders Current Medication Orders: Sodium Chloride (Sodium Chloride 0.9%) 1,000 mls @ 200 mls/hr IV .Q5H CESAR Last Admin: 08/02/17 05:27 Dose: 200 mls/hr eMAR Start Stop Document 08/02/17 05:27 YP (Rec: 08/02/17 05:27 YP [id number]) Intravenous Solution Start Date 08/02/17 Start Time 05:27 Sodium Chloride (Sodium Chloride 0.9%) 1,000 mls @ 999 mls/hr IV .Q1H1M STA Stop: 08/02/17 08:30 Discontinued Medications Sodium Chloride (Sodium Chloride 0.9%) 1,000 mls @ 999 mls/hr IV .Q1H1M STA Stop: 08/02/17 07:06 Last Admin: 08/02/17 06:20 Dose: 999 mls/hr eMAR Start Stop Document 08/02/17 06:20 YP (Rec: 08/02/17 06:21 YP [id number]) Intravenous Solution Start Date 08/02/17 Start Time 06:21 End Date 08/02/17 End time 07:21 Total Infusion Time 60 Morphine Sulfate (Morphine) 4 mg IVP STAT STA Stop: 08/02/17 05:01 Last Admin: 08/02/17 05:27 Dose: 4 mg MAR Pain Assessment Document 08/02/17 05:27 YP (Rec: 08/02/17 05:28 YP [id number]) Pain Reassessment Is this a pain reassessment? No Sleep Is patient sleeping during reassessment? No Presence of Pain Presence of Pain Yes IVP Administration Document 08/02/17 05:27 YP (Rec: 08/02/17 05:28 YP [id number]) Charges for Administration # of IVP Administrations 1 Ondansetron HCl (Zofran Inj) 4 mg IVP ONCE ONE Stop: 08/02/17 05:01 Last Admin: 08/02/17 05:28 Dose: 4 mg IVP Administration Document 08/02/17 05:28 YP (Rec: 08/02/17 05:28 YP [id number]) Charges for Administration # of IVP Administrations 1 - Scribe Statement The provider has reviewed the documentation as recorded by the Scribe Cristal Berry All medical record entries made by the Scribe were at my direction and personally dictated by me. I have reviewed the chart and agree that the record accurately reflects my personal performance of the history, physical exam, medical decision making, and the department course for this patient. I have also personally directed, reviewed, and agree with the discharge instructions and disposition. Disposition/Present on Arrival - Present on Arrival Any Indicators Present on Arrival: No History of DVT/PE: No History of Uncontrolled Diabetes: Yes Urinary Catheter: No History of Decub. Ulcer: No History Surgical Site Infection Following: None - Disposition Have Diagnosis and Disposition been Completed?: Yes Diagnosis: Pancreatitis, Abdominal pain Disposition: HOSPITALIZED Disposition Time: 07:51 Patient Plan: Admission Patient Problems: Current Active Problems Problem Status Onset Abdominal pain Acute Pancreatitis Acute Condition: FAIR
[2017-08-02] MEDS ORDERED: Morphine 4 mg/ml ISec IVP PRN ×2 (08:27→08:38)
[2017-08-02] MEDS ORDERED: Morphine 2 mg/ml ISec IVP PRN ×2 (08:27→10:16)
[2017-08-02] MEDS ORDERED: Thiamine 100 MG, Folic Acid 1 MG, Multivitamin (MVI) 10 ML in Sodium Chloride 0.9% 1,00... IV SCH (09:08)
[2017-08-02 11:28] LABS: VENOUS BLOOD GAS PO2 195 mm/Hg (30-55); VENOUS BLOOD PH 7.44 (7.32-7.43)
[2017-08-02] MEDS: FOLIC ACID IV SCH ×2 (12:11→21:00)
[2017-08-02] MEDS: MULTIVITAMIN IV SCH ×2 (12:11→21:00)
[2017-08-02] MEDS: [UNRECOGNIZED DRUG - OTHER] IV SCH ×2 (12:11→21:00)
[2017-08-02] MEDS: THIAMINE IV SCH ×2 (12:11→21:00)
[2017-08-02] MEDS ORDERED: Thiamine 100 mg/ml Inj IV SCH (12:45)
--- NOTE | 2017-08-02 12:45 | CP.PCM.HP ---
<Odette Heard - Last Filed: 08/02/17 12:29> History of Present Illness - History of Present Illness History of Present Illness: Dr. Kevin Gomez Service CC: Abdominal pain, Nausea & Vomiting HPI: 51 AA M with a PMHx of polysubstance abuse, HTN, HLD, and chronic pancreatitis [place] [facility] [place] with complaints of abdominal pain and nausea and vomiting. Pt states that his symptoms began yesterday and have progressively worsened prompting him to seek medical attention. Pt stated that his symptoms began after he finished drinking a fifth of erika. He previously was drinking a pint of erika however has increased his daily intake. He has had similar episodes of abdominal pain in the past, most recently being 6 months ago. The pain is most significant in his LUQ with an intensity of an 8/ 10 and radiates diffusely throughout his abdomen and is sharp in nature. He admitted to nausea and vomiting, his most recent episode of non bloody non bilious emesis was early this morning. He admitted to a non-productive cough for the past couple of days and mild sob on exertion. He denies fever, chills, chest pain, SOB at rest, hematemesis, hematochezia, diarrhea, constipation, or urinary symptoms. PMHx: Chronic Pancreatitis, alcohol abuse, thoracic aneurysm, HLD, chronic aortic dissection s/p repair, HTN, HLD PSHx: aneurysm repair 2014, pseudocyst drain SHx: + tobacco: 1ppdx 30 years. + etoh: fifth of erika daily, methadone from [facility] dosage confirmed 130mg FHx: denies Allergies: NKDA Meds: feosol, asa, metoprolol, folic acid, pepcid, lipitor PMD: Dr. Vidales Present on Admission - Present on Admission Any Indicators Present on Admission: No Review of Systems - Review of Systems Review of Systems: As per HPI otherwise negative Past Patient History - Infectious Disease Hx of Infectious Diseases: None - Tetanus Immunizations Tetanus Immunization: Unknown - Past Medical History & Family History Past Medical History?: Yes - Past Social History Smoking Status: Heavy Smoker > 10 Cigarettes Daily - CARDIAC Hx Cardiac Disorders: Yes Hx Heart Murmur: Yes Hx Hypertension: Yes Other/Comment: aortic dissected repair/aaa 2014 - PULMONARY Hx Respiratory Disorders: No Hx Tuberculosis: No - NEUROLOGICAL Hx Neurological Disorder: No HX Cerebrovascular Accident: No Hx Seizures: No - HEENT Hx HEENT Problems: No - RENAL Hx Chronic Kidney Disease: No - ENDOCRINE/METABOLIC Hx Endocrine Disorders: No - HEMATOLOGICAL/ONCOLOGICAL Hx Blood Disorders: Yes Hx Anemia: Yes Hx Cancer: No - INTEGUMENTARY Hx Dermatological Problems: No - MUSCULOSKELETAL/RHEUMATOLOGICAL Hx Musculoskeletal Disorders: Yes Hx Arthritis: Yes (knees and lower back) Hx Back Pain: Yes Hx Falls: No Hx Unsteady Gait: No - GASTROINTESTINAL Hx Gastrointestinal Disorders: Yes Hx Pancreatitis: Yes - GENITOURINARY/GYNECOLOGICAL Hx Genitourinary Disorders: No Hx Sexually Transmitted Disorders: No - PSYCHIATRIC Hx Psychophysiologic Disorder: No Hx Substance Use: Yes (on methadone program) Other/Comment: denies substance abuse but on methadone program with [facility], takes methadone 130 mg po daily as per pt, drinks 1/2 pt erika a day, smokes over 10 cigs a day - SURGICAL HISTORY Hx Abdominal Aortic Aneurysm Repair: Yes Hx Open Heart Surgery: Yes (AAA REPAIR) Other/Comment: aneurysm in his chest December 2014 - ANESTHESIA Hx Anesthesia: Yes Hx Anesthesia Reactions: No Hx Malignant Hyperthermia: No Meds Allergies/Adverse Reactions: Allergies Allergy/AdvReac Type Severity Reaction Status Date / Time No Known Allergies Allergy Verified 08/02/17 14:07 Physical Exam - Constitutional Appears: No Acute Distress - Head Exam Head Exam: ATRAUMATIC, NORMAL INSPECTION, NORMOCEPHALIC - Eye Exam Eye Exam: EOMI, Normal appearance, PERRL Pupil Exam: NORMAL ACCOMODATION, PERRL - ENT Exam ENT Exam: Mucous Membranes Moist, Normal Exam - Respiratory Exam Respiratory Exam: Clear to Auscultation Bilateral, NORMAL BREATHING PATTERN - Cardiovascular Exam Cardiovascular Exam: REGULAR RHYTHM, +S1, +S2 - GI/Abdominal Exam GI & Abdominal Exam: Guarding, Normal Bowel Sounds, Soft, Tenderness (LUQ). absent: Rigid - Extremities Exam Extremities exam: Positive for: normal inspection. Negative for: pedal edema, tenderness - Neurological Exam Neurological exam: Alert, CN II-XII Intact, Oriented x3, Reflexes Normal Additional comments: mild tremors - Psychiatric Exam Psychiatric exam: Normal Affect, Normal Mood - Skin Skin Exam: Dry, Intact, Normal Color, Warm Results - Vital Signs Recent Vital Signs: Last Vital Signs Temp 98.7 F 08/02/17 08:07 Pulse 82 08/02/17 08:07 Resp 18 08/02/17 08:07 BP 139/89 08/02/17 08:07 Pulse Ox 100 08/02/17 08:07 - Labs Result Diagrams: 08/02/17 05:10 08/02/17 05:10 Labs: Laboratory Results - last 24 hr 08/02/17 11:00 pO2 195 H VBG pH 7.44 H VBG pCO2 24.0 L VBG HCO3 16.3 L VBG Total CO2 17.0 L VBG O2 Sat (Calc) 100.1 H VBG Base Excess -6.0 L VBG Potassium 5.6 H Sodium 133.0 Chloride 100.0 Glucose 103 Lactate 2.2 H FiO2 21.0 Venous Blood Potassium 5.6 H Assessment & Plan - Assessment and Plan (Free Text) Assessment: 51 AA M with a PMHx of polysubstance abuse on methadone, daily alcohol abuse, HTN, HLD and chronic pancreatitis admitted with acute on chronic pancreatitis. Acute on Chronic Pancreatitis - likely due Etoh abuse - lipase of 1372 - NPO - IVF LR @ 200 - EKG demonstrated prolonged QT, will hold zofran at this time, nausea improved since admission - analgesics - reassess ETOH Abuse - thiamine, b12, folate supplement in LR - counselled on cessation of alcohol abuse, provided information on AA, pt refusing at this time - CIWA - Ativan sana and prn for ETOH withdrawl - holding hepatotoxic agents, transaminitis Substance abuse - hx heroin abuse- sniff for 10 yrs, on methadone now, uses [facility], dosage confirmed 130mg daily @8am - monitor for withdrawl symptoms Anemia - microcytic - continue Feosol - monitor closely with daily CBC Thrombocytopenia - likely 2/2 etoh abuse - avoid heparin/ppi - monitor closely via CBC Hx HTN - BP stable currently - hold antihypertensives at this time - monitor closely HLD - lipid panel pending - lipitor on hold PPX - scds - pepcid Seen reviewed and discussed with attending, Dr. Gomez <Kevin Gomez - Last Filed: 08/02/17 15:58> Results - Vital Signs Recent Vital Signs: Last Vital Signs Temp 98.7 F 08/02/17 08:07 Pulse 82 08/02/17 08:07 Resp 18 08/02/17 08:07 BP 139/89 08/02/17 08:07 Pulse Ox 100 08/02/17 08:07 - Labs Result Diagrams: 08/02/17 05:10 08/02/17 13:30 Labs: Laboratory Results - last 24 hr 08/02/17 08/02/17 08/02/17 11:00 12:20 13:30 pO2 195 H VBG pH 7.44 H VBG pCO2 24.0 L VBG HCO3 16.3 L VBG Total CO2 17.0 L VBG O2 Sat (Calc) 100.1 H VBG Base Excess -6.0 L VBG Potassium 5.6 H Sodium 133.0 134 Chloride 100.0 99 Glucose 103 Lactate 2.2 H FiO2 21.0 Potassium 4.8 Carbon Dioxide 23 Anion Gap 17 BUN 17 Creatinine 0.7 L Est GFR ( Amer) > 60 Est GFR (Non-Af Amer) > 60 Random Glucose 97 Calcium 9.0 Venous Blood Potassium 5.6 H Urine Opiates Screen Positive H Urine Methadone Screen Positive H Ur Barbiturates Screen Negative Ur Phencyclidine Scrn Negative Ur Amphetamines Screen Negative U Benzodiazepines Scrn Negative U Oth Cocaine Metabols Negative U Cannabinoids Screen Negative Attending/Attestation - Attestation I have personally seen and examined this patient.: Yes I have fully participated in the care of the patient.: Yes I have reviewed all pertinent clinical information: Yes Notes (Text): I have seen and examined the patient at bedside. Agree with the above note with the following additions/ exceptions: Briefly this is 51 year old male with history of chronic alcohol induced pancreatitis, Iron deficiency anemia, chronic thrombocytopenia, tobacco use, substance abuse now methadone dependent, chronic aortic dissection s/p repair, HTN, dyslipidemia who was admitted for acute on chronic pancreatitis. GB US done 2 months ago was negative for cholelithiasis. Will check lipid panel. Will start LR, IV analgesics, antiemetics, folic acid,thiamine and MVI. He drinks on regular basis. Will start ativan. Will closely monitor the patient and will transfer to remote tele if needed. Patient has AGMA and transaminitis. Upon discharge patient will follow up with Dr Rodrigues. Dr Kevin Gomez
[2017-08-02 12:53] LABS: BARBITURATES, UR NEGATIVE (NEGATIVE); BENZODIAZEPINES, UR NEGATIVE (NEGATIVE); PHENCYCLIDINE, UR NEGATIVE (NEGATIVE)
[2017-08-02 13:02] LABS: OPIATES, UR POSITIVE (NEGATIVE)
--- NOTE | 2017-08-02 13:26 | RAD ---
HISTORY: cough COMPARISON: 11/16/2016 FINDINGS: LUNGS: No active pulmonary disease. PLEURA: No significant pleural effusion identified, no pneumothorax apparent. CARDIOVASCULAR: There is mild cardiomegaly. There is aortic tortuosity. Sternal wires are seen OSSEOUS STRUCTURES: No significant abnormalities. VISUALIZED UPPER ABDOMEN: Normal. OTHER FINDINGS: None. IMPRESSION: No active disease.
[2017-08-02 14:08] LABS: BLOOD UREA NITROGEN 17 mg/dL (7-21); GFR AFRICAN-AMERICAN > 60; GFR NON-AFRICAN AMERICAN > 60
[2017-08-02] MEDS: Thiamine 100 MG in Sodium Chloride 0.9% 50 ML IV SCH ×2 (14:09→21:00)
--- NOTE | 2017-08-02 14:45 | CP.PCM.CON ---
History of Present Illness - History of Present Illness History of Present Illness: Initial Nephrology Consultation: Assessment: critical high anion gap metabolic acidosis with appropriate respiratory compensation: likely due to alcohol ketoacidosis and starvation ketoacidosis, lactic acidosis Acute pancreatitis hypertension, aortic dissection s/p repair, chronic daily alcohol abuse/ dependence, current active smoker on chronic methadone Plan No acute need for renal replacement therapy at this time. no hx of toxic ingestions. will repeat BMP and check osmol as well. check UA and urine tox Hypertension control with meds as ordered. continue with IVF, consider Dextrose containing fluids such as D5NS or D5LR. continue with FA, MVI and thiamine will also add thiamine 100 mg IV q 8hr in addition, to give high dose thiamine due to his alcoholic ketoacidosis pt educated to stop smoking and to abstain from alcohol. need lifestyle modifications Monitor Input/Output, daily weights and renal function with basic metabolic panel Dose meds/antibiotics for normal GFR. Glycemic control. Further work up/ management as per primary team Thanks for allowing me to participate in care of your patient. Please call if any Qs. d/w team Dr Matthias Walker Office: [phone] Chief Complaint; I feel sick reason for consult: acidosis HPI: Pt is a 51 M with hx of hypertension (many years), aortic dissection s/p repair, chronic daily alcohol abuse/dependence, current active smoker presented with complaints of pain in upper abdomen with multiple episode of nausea and vomiting x 2 days which was associated with decreased oral intake. pt was found to have acute pancreatitis. also with low serum bicarb hence renal consulted for acidosis Denies OTC/herbal meds or NSAIDs except alleve. denies taking tylenol or excedrin. denies any toxin ingestion or drinking liquor from street or spurious alcohols such as anti-freeze etc. ROS: Cardiovascular: No chest pain. Pulmonary: feels some shortness of breath Gastrointestinal: c/o abdominal pain c/o nausea. c/o vomiting. Genitourinary: No pain while urinating. Denies blood in urine. All other negative Physical Examination: General Appearance: Comfortable, in no acute respiratory distress, co-operative . Vitals reviewed and noted as below Head; Atraumatic, normocephalic ENT: no ulcers no thrush. Tongue is midline. Oropharynx: no rash or ulcers. EYES: Pupils are equal, round and reactive to light accommodation. Eye muscles and extraocular movement intact. Sclera is anicteric. Neck; supple no lymphadenopathy, no thyromegaly or bruit Lungs: Normal respiratory rate/effort. Breath sounds bilateral equal and clear Heart: Normal rate. s1s2 normal. No rub or gallop. Extremities: no edema. No varicose veins Neurological: Patient is alert, awake and oriented to person, place and time. No focal deficit. Strength bilateral appropriate and equal. mild resting tremors + Skin: Warm and dry. Normal turgor. No rash. Palpitation: Normal elasticity for age Abdomen: Abdomen is soft. Bowel sounds +. There is mild epigastric abdominal tenderness, no guarding/rigidity no organomegaly Psych: normal insight and normal affect/mood MSK: no joint tenderness or swelling. Digits and nails normal, no deformity : kidney or bladder not palpable Labs/imaging reviewed. Past medical history, past surgical history, family history, social history, allergy reviewed and noted as below Family hx: no hx of CKD. Rest non-contributory Past Patient History - Infectious Disease Hx of Infectious Diseases: None - Tetanus Immunizations Tetanus Immunization: Unknown - Past Medical History & Family History Past Medical History?: Yes - Past Social History Smoking Status: Heavy Smoker > 10 Cigarettes Daily - CARDIAC Hx Cardiac Disorders: Yes Hx Heart Murmur: Yes Hx Hypertension: Yes Other/Comment: aortic dissected repair/aaa 2015 - PULMONARY Hx Respiratory Disorders: No Hx Tuberculosis: No - NEUROLOGICAL Hx Neurological Disorder: No HX Cerebrovascular Accident: No Hx Seizures: No - HEENT Hx HEENT Problems: No - RENAL Hx Chronic Kidney Disease: No - ENDOCRINE/METABOLIC Hx Endocrine Disorders: No - HEMATOLOGICAL/ONCOLOGICAL Hx Blood Disorders: Yes Hx Anemia: Yes Hx Cancer: No - INTEGUMENTARY Hx Dermatological Problems: No - MUSCULOSKELETAL/RHEUMATOLOGICAL Hx Musculoskeletal Disorders: Yes Hx Arthritis: Yes (knees and lower back) Hx Back Pain: Yes Hx Falls: No Hx Unsteady Gait: No - GASTROINTESTINAL Hx Gastrointestinal Disorders: Yes Hx Pancreatitis: Yes - GENITOURINARY/GYNECOLOGICAL Hx Genitourinary Disorders: No Hx Sexually Transmitted Disorders: No - PSYCHIATRIC Hx Psychophysiologic Disorder: No Hx Substance Use: Yes (on methadone program) Other/Comment: denies substance abuse but on [facility]adone program with [facility], takes methadone 130 mg po daily as per pt, drinks 1/2 pt erika a day, smokes over 10 cigs a day - SURGICAL HISTORY Hx Abdominal Aortic Aneurysm Repair: Yes Hx Open Heart Surgery: Yes ([facility] REPAIR) Other/Comment: aneurysm in his chest December 2014 - ANESTHESIA Hx Anesthesia: Yes Hx Anesthesia Reactions: No Hx Malignant Hyperthermia: No Meds Allergies/Adverse Reactions: Allergies Allergy/AdvReac Type Severity Reaction Status Date / Time No Known Allergies Allergy Verified 08/02/17 14:07 - Medications Medications: Current Medications Docusate Sodium (Colace) 100 mg PO BID [facility] Famotidine (Pepcid) 20 mg IVP DAILY [facility] Last Admin: 08/02/17 10:26 Dose: 20 mg Ferrous Sulfate (Feosol) 324 mg PO BID [facility] Thiamine HCl 100 mg/Multivitamins/Vitamin C 10 ml/Folic Acid 1 mg/ Lactated Ringer's 1,011.2 mls @ 200 mls/hr IV .Q5H4M [facility] Last Admin: 08/02/17 12:11 Dose: 200 mls/hr Thiamine HCl 100 mg/ Sodium (Chloride) 51 mls @ 52 mls/hr IV Q8 [facility] Stop: 08/05/17 14:01 Last Admin: 08/02/17 14:09 Dose: 52 mls/hr Lorazepam (Ativan) 2 mg IVP Q3H PRN; Protocol PRN Reason: Symptoms of alcohol withdrawl Lorazepam (Ativan) 2 mg IVP Q6 [facility] PRN Reason: Protocol Last Admin: 08/02/17 12:09 Dose: Not Given Morphine Sulfate (Morphine) 1 mg IVP Q4H PRN PRN Reason: Pain, moderate (4-7) Nicotine (Nicoderm Cq) 1 patch TD DAILY [facility] Last Admin: 08/02/17 10:26 Dose: Not Given Ondansetron HCl (Zofran Inj) 4 mg IVP Q4H PRN PRN Reason: Nausea/Vomiting Results - Vital Signs Recent Vital Signs: Last Vital Signs Temp 98.7 F 08/02/17 08:07 Pulse 82 08/02/17 08:07 Resp 18 08/02/17 08:07 BP 139/89 08/02/17 08:07 Pulse Ox 100 08/02/17 08:07 - Labs Result Diagrams: 08/02/17 05:10 08/02/17 13:30 Labs: Laboratory Results - last 24 hr 08/02/17 08/02/17 08/02/17 11:00 12:20 13:30 pO2 195 H VBG pH 7.44 H VBG pCO2 24.0 L VBG HCO3 16.3 L VBG Total CO2 17.0 L VBG O2 Sat (Calc) 100.1 H VBG Base Excess -6.0 L VBG Potassium 5.6 H Sodium 133.0 134 Chloride 100.0 99 Glucose 103 Lactate 2.2 H FiO2 21.0 Potassium 4.8 Carbon Dioxide 23 Anion Gap 17 BUN 17 Creatinine 0.7 L Est GFR ( Amer) > 60 Est GFR (Non-Af Amer) > 60 Random Glucose 97 Calcium 9.0 Venous Blood Potassium 5.6 H Urine Opiates Screen Positive H Urine Methadone Screen Positive H Ur Barbiturates Screen Negative Ur Phencyclidine Scrn Negative Ur Amphetamines Screen Negative U Benzodiazepines Scrn Negative U Oth Cocaine Metabols Negative U Cannabinoids Screen Negative
[2017-08-02 15:55] VITALS: BMI 20.3
[2017-08-02] MEDS ORDERED: Influenza Vaccine 60 mcg/0.5 mL SYR (4YR UP) IM ONE (15:55)
[2017-08-02] MEDS ORDERED: Pneumococcal 23-Valent Vaccine IM ONE (15:55)
--- NOTE | 2017-08-02 17:02 | CARD ---
APPROVED REPORT EKG Measurement Heart [id number] <Conclusion> Normal sinus rhythm Nonspecific ST and T wave abnormality Abnormal ECG
[2017-08-02] MEDS ORDERED: Non Formulary Medication (Ferrous Sulfate [Feosol] 325 MG) PO SCH (18:00)
[2017-08-02 20:34] LABS: URINE BILIRUBIN SMALL (NEGATIVE); URINE BLOOD NEGATIVE (NEGATIVE); URINE GLUCOSE (UA) NEGATIVE (NEGATIVE); URINE LEUKOCYTE ESTERASE NEGATIVE Leu/uL (NEGATIVE); URINE NITRATE NEGATIVE (NEGATIVE); URINE PROTEIN TRACE mg/dL (<30 mg/dL); URINE UROBILINOGEN 0.2 E.U./dL (<1 E.U./dL)
[2017-08-02 20:46] LABS: URINE APPEARANCE CLEAR (CLEAR); URINE COLOR YELLOW (YELLOW)
[2017-08-02 20:49] LABS: URINE BACTERIA FEW (NEG); URINE RBC NEGATIVE /hpf (0-2)
[2017-08-03] MEDS: THIAMINE IV SCH (03:00)
[2017-08-03] MEDS: FOLIC ACID IV SCH (03:00)
[2017-08-03] MEDS: [UNRECOGNIZED DRUG - OTHER] IV SCH (03:00)
[2017-08-03] MEDS: MULTIVITAMIN IV SCH (03:00)
[2017-08-03] MEDS: Thiamine 100 MG in Sodium Chloride 0.9% 50 ML IV SCH ×3 (06:17→21:43)
[2017-08-03 07:08] LABS: EOS % 0.3 % (1.5-5.0); GRAN # 6.33 (1.4-6.5); GRAN % 72.1 % (50.0-68.0); HEMOGLOBIN 12.5 g/dL (14.0-18.0); LYMPH # 1.7 (1.2-3.4); LYMPH % 19.8 % (22.0-35.0); MEAN CELL VOLUME 78.1 fl (80.0-105.0); MEAN CORPUSCULAR HGB CONC 35.8 g/dl (31.0-37.0); MEAN PLATELET VOLUME 10.4 fl (7.0-11.0); MONO # 0.7 (0.1-0.6); MONO % 7.8 % (1.0-6.0); RBC 4.47 10^6/uL (3.5-6.1); RED CELL DISTRIBUTION WIDTH 15.1 % (11.5-14.5); WHITE BLOOD COUNT 8.8 10^3/ul (4.5-11.0)
[2017-08-03 07:29] LABS: ALB/GLOB RATIO 1.2 (1.1-1.8); ALBUMIN 3.6 g/dL (3.0-4.8); ALT/SGPT 64 U/L (7-56); AST/SGOT 105 U/L (17-59); BLOOD UREA NITROGEN 12 mg/dL (7-21); CALCIUM 9.6 mg/dL (8.4-10.5); GFR AFRICAN-AMERICAN > 60; GFR NON-AFRICAN AMERICAN > 60; MAGNESIUM 1.7 mg/dL (1.7-2.2)
[2017-08-03 08:49] LABS: HDL CHOLESTEROL 70 mg/dL (29-60)
[2017-08-03 08:59] LABS: LDL CHOLESTEROL 63 mg/dL (0-129)
[2017-08-03] MEDS ORDERED: NS IV SCH (09:30)
[2017-08-03] MEDS ORDERED: DEXTROSE IV SCH (09:30)
[2017-08-03] MEDS ORDERED: THIAMINE IV SCH (09:30)
[2017-08-03] MEDS ORDERED: MULTIVITAMIN IV SCH (09:30)
[2017-08-03] MEDS ORDERED: FOLIC ACID IV SCH (09:30)
[2017-08-03] MEDS ORDERED: Sodium Phosphate 15 MMOLE in Sodium Chloride 0.9% 250 ML IVPB ONE (09:32)
--- NOTE | 2017-08-03 09:57 | CP.PCM.PN ---
Subjective - Date & Time of Evaluation Date of Evaluation: 08/03/17 Time of Evaluation: 09:55 - Subjective Subjective: Nephrology Consultation: Assessment: stable high anion gap metabolic acidosis with appropriate respiratory compensation: likely due to alcohol ketoacidosis and starvation ketoacidosis, lactic acidosis Hyponatremia, hypophosphatemia Acute pancreatitis hypertension, aortic dissection s/p repair, chronic daily alcohol abuse/ dependence, current active smoker on chronic methadone thrombocytopenia Plan No acute need for renal replacement therapy at this time. no hx of toxic ingestions. Hypertension control with meds as ordered. continue with IVF, but due to ketosis and hyponatremia, change to D5NS with additives as thiamine, FA, MVI. continue with FA, MVI and thiamine thiamine 100 mg IV q 8hr in addition (for 3 days) , to give high dose thiamine due to his alcoholic ketoacidosis NaPhos 15 mmol IV ordered pt educated to stop smoking and to abstain from alcohol. need lifestyle modifications Monitor Input/Output, daily weights and renal function with basic metabolic panel Dose meds/antibiotics for normal GFR. Glycemic control. Further work up/ management as per primary team Thanks for allowing me to participate in care of your patient. Please call if any Qs. d/w team Dr Matthias Walker Office: [phone] HPI: Pt is a 51 M with hx of hypertension (many years), aortic dissection s/p repair, chronic daily alcohol abuse/dependence, current active smoker presented with complaints of pain in upper abdomen with multiple episode of nausea and vomiting x 2 days which was associated with decreased oral intake. pt was found to have acute pancreatitis. also with low serum bicarb hence renal consulted for acidosis Denies OTC/herbal meds or NSAIDs except alleve. denies taking tylenol or excedrin. denies any toxin ingestion or drinking liquor from street or spurious alcohols such as anti-freeze etc. ROS: Cardiovascular: No chest pain. Pulmonary: feels some shortness of breath Gastrointestinal: c/o abdominal pain c/o nausea. c/o vomiting. Genitourinary: No pain while urinating. Denies blood in urine. All other negative Physical Examination: General Appearance: uncomfortable, in no acute respiratory distress, co- operative . Vitals reviewed and noted as below Head; Atraumatic, normocephalic ENT: no ulcers no thrush. Tongue is midline. Oropharynx: no rash or ulcers. EYES: Pupils are equal, round and reactive to light accommodation. Eye muscles and extraocular movement intact. Sclera is anicteric. Neck; supple no lymphadenopathy, no thyromegaly or bruit Lungs: Normal respiratory rate/effort. Breath sounds bilateral equal and clear Heart: Normal rate. s1s2 normal. No rub or gallop. Extremities: no edema. No varicose veins Neurological: Patient is alert, awake and oriented to person, place and time. No focal deficit. Strength bilateral appropriate and equal. mild resting tremors + Skin: Warm and dry. Normal turgor. No rash. Palpitation: Normal elasticity for age Abdomen: Abdomen is soft. Bowel sounds +. There is mild epigastric abdominal tenderness, no guarding/rigidity no organomegaly Psych: normal insight and normal affect/mood MSK: no joint tenderness or swelling. Digits and nails normal, no deformity : kidney or bladder not palpable Labs/imaging reviewed. Past medical history, past surgical history, family history, social history, allergy reviewed and noted as below Family hx: no hx of CKD. Rest non-contributory Objective - Vital Signs/Intake and Output Vital Signs (last 24 hours): Temp Pulse Resp BP Pulse Ox 98.9 F 78 20 153/96 H 97 08/03/17 07:30 08/03/17 07:30 08/03/17 07:30 08/03/17 07:30 08/03/17 07:30 Intake and Output: 08/03/17 08/03/17 06:59 18:59 Intake Total 3000 Output Total 500 Balance 2500 - Medications Medications: Current Medications Aspirin (Ecotrin) 81 mg PO DAILY [facility] Docusate Sodium (Colace) 100 mg PO BID [facility] Last Admin: 08/02/17 17:30 Dose: 100 mg Famotidine (Pepcid) 20 mg IVP BID [facility] Ferrous Sulfate (Feosol) 324 mg PO BID [facility] Last Admin: 08/02/17 17:30 Dose: 324 mg Folic Acid (Folic Acid) 1 mg PO DAILY [facility] Thiamine HCl 100 mg/ Sodium (Chloride) 51 mls @ 52 mls/hr IV Q8 [facility] Stop: 08/05/17 14:01 Last Admin: 08/03/17 06:17 Dose: 52 mls/hr Thiamine HCl 100 mg/Multivitamins/Vitamin C 5 ml/Folic Acid 1 mg/ Dextrose/ Sodium Chloride 1,006.2 mls @ 100 mls/hr IV .Q10H4M [facility] Sodium Phosphate 15 mmole/ (Sodium Chloride) 255 mls @ 42.5 mls/hr IVPB ONCE ONE Stop: 08/03/17 15:31 Lorazepam (Ativan) 2 mg IVP Q3H PRN; Protocol PRN Reason: Symptoms of alcohol withdrawl Lorazepam (Ativan) 2 mg IVP Q6 [facility] PRN Reason: Protocol Last Admin: 08/03/17 06:16 Dose: 2 mg Metoprolol Succinate (Toprol Xl) 25 mg PO DAILY [facility] Morphine Sulfate (Morphine) 1 mg IVP Q4H PRN PRN Reason: Pain, moderate (4-7) Last Admin: 08/02/17 19:36 Dose: 1 mg Nicotine (Nicoderm Cq) 1 patch TD DAILY [facility] Last Admin: 08/02/17 10:26 Dose: Not Given Ondansetron HCl (Zofran Inj) 4 mg IVP Q4H PRN PRN Reason: Nausea/Vomiting - Labs Labs: 08/03/17 06:45 08/03/17 06:45
[2017-08-03] MEDS: Metoprolol Succinate 25 mg XL Tab PO SCH (10:03)
[2017-08-03] MEDS ORDERED: Naproxen 550 mg Tab PO ONE (10:11)
--- NOTE | 2017-08-03 12:44 | CP.PCM.PN ---
<Odette Heard - Last Filed: 08/03/17 12:40> Subjective - Date & Time of Evaluation Date of Evaluation: 08/03/17 Time of Evaluation: 07:00 - Subjective Subjective: Dr. Jason Petersen Pt was seen and examined at bedside. Pt is feeling nauseous, had an episode of nbnb emesis this morning as well as one episode last night. Pt abdominal pain has minimally improved. Pt remains NPO, has not had a bm overnight. Pt is voiding regularly. Pt cough has improved. Pt denied fever, chills, sob, chest pains, dizziness, headache. Objective - Vital Signs/Intake and Output Vital Signs (last 24 hours): Temp Pulse Resp BP Pulse Ox 98.9 F 86 20 148/105 H 97 08/03/17 07:30 08/03/17 10:03 08/03/17 07:30 08/03/17 10:03 08/03/17 07:30 Intake and Output: 08/03/17 08/03/17 06:59 18:59 Intake Total 3000 Output Total 500 Balance 2500 - Medications Medications: Current Medications Aspirin (Ecotrin) 81 mg PO DAILY [facility] Last Admin: 08/03/17 10:11 Dose: 81 mg Docusate Sodium (Colace) 100 mg PO BID [facility] Last Admin: 08/03/17 10:11 Dose: 100 mg Famotidine (Pepcid) 20 mg IVP BID [facility] Last Admin: 08/03/17 09:59 Dose: 20 mg Ferrous Sulfate (Feosol) 324 mg PO BID [facility] Last Admin: 08/03/17 09:59 Dose: 324 mg Folic Acid (Folic Acid) 1 mg PO DAILY [facility] Last Admin: 08/03/17 09:59 Dose: 1 mg Thiamine HCl 100 mg/ Sodium (Chloride) 51 mls @ 52 mls/hr IV Q8 [facility] Stop: 08/05/17 14:01 Last Admin: 08/03/17 06:17 Dose: 52 mls/hr Thiamine HCl 100 mg/Multivitamins/Vitamin C 5 ml/Folic Acid 1 mg/ Dextrose/ Sodium Chloride 1,006.2 mls @ 100 mls/hr IV .Q10H4M [facility] Sodium Phosphate 15 mmole/ (Sodium Chloride) 255 mls @ 42.5 mls/hr IVPB ONCE ONE Stop: 08/03/17 15:31 Last Admin: 08/03/17 11:18 Dose: 42.5 mls/hr Lorazepam (Ativan) 2 mg IVP Q3H PRN; Protocol PRN Reason: Symptoms of alcohol withdrawl Lorazepam (Ativan) 2 mg IVP Q6 [facility] PRN Reason: Protocol Last Admin: 08/03/17 06:16 Dose: 2 mg Metoprolol Succinate (Toprol Xl) 25 mg PO DAILY [facility] Last Admin: 08/03/17 10:03 Dose: 25 mg Morphine Sulfate (Morphine) 1 mg IVP Q4H PRN PRN Reason: Pain, moderate (4-7) Last Admin: 08/02/17 19:36 Dose: 1 mg Nicotine (Nicoderm Cq) 1 patch TD DAILY [facility] Last Admin: 08/03/17 10:08 Dose: Not Given Ondansetron HCl (Zofran Inj) 4 mg IVP Q4H PRN PRN Reason: Nausea/Vomiting - Labs Labs: 08/03/17 06:45 08/03/17 06:45 - Constitutional Appears: No Acute Distress - Head Exam Head Exam: ATRAUMATIC, NORMAL INSPECTION, NORMOCEPHALIC - Eye Exam Eye Exam: EOMI, Normal appearance, PERRL Pupil Exam: NORMAL ACCOMODATION, PERRL - ENT Exam ENT Exam: Mucous Membranes Moist, Normal Exam - Respiratory Exam Respiratory Exam: Clear to Ausculation Bilateral, NORMAL BREATHING PATTERN - Cardiovascular Exam Cardiovascular Exam: REGULAR RHYTHM, +S1, +S2. absent: Murmur - GI/Abdominal Exam GI & Abdominal Exam: Soft, Tenderness (LUQ), Hypoactive Bowel Sounds. absent: Distended - Extremities Exam Extremities Exam: Full ROM, Normal Capillary Refill, Normal Inspection. absent : Joint Swelling, Pedal Edema - Neurological Exam Neurological Exam: Alert, Awake, CN II-XII Intact, Oriented x3 - Psychiatric Exam Psychiatric exam: Normal Affect, Normal Mood - Skin Skin Exam: Dry, Intact, Normal Color, Warm Assessment and Plan - Assessment and Plan (Free Text) Assessment: 51 AA M with a PMHx of polysubstance abuse on methadone, daily alcohol abuse, HTN, HLD and chronic pancreatitis admitted with acute on chronic pancreatitis. Acute on Chronic Pancreatitis - likely due Etoh abuse - lipase of 1372, abdomen baller tender and slightly nauseous - NPO except meds - IVF changed to D5NS + thiamine, multivitamin and folic acid - EKG demonstrated prolonged QT, will hold zofran at this time - analgesics AGAP Metabolic Acidosis - 2/2 EtOH ketoacidosis, starvation acidosis and lactic acidosis - Dr. Walker, Paper Bundler consulted, recommended D5NS@100, thiamin 100mg iv q8h x3 days Hypophosphatemia - supplemented - continue to monitor and replete as needed ETOH Abuse - thiamine, b12, folate supplement - counselled on cessation of alcohol abuse, provided information on AA, pt refusing at this time - CIWA protocol, will taper ativan - Ativan sana and prn for ETOH withdrawl - holding hepatotoxic agents, transaminitis Substance abuse - hx heroin abuse- sniff for 10 yrs, on methadone now, uses Quietly, dosage confirmed 130mg daily @8am - monitor for withdrawl symptoms Anemia - microcytic - continue Feosol - monitor closely with daily CBC Thrombocytopenia - likely 2/2 etoh abuse - avoid heparin/ppi, on pepcid - monitor closely via CBC Hx HTN - will continue home med, meotprolol - monitor closely HLD - lipid panel wnl - lipitor on hold PPX - scds - pepcid Seen reviewed and discussed with attending, Dr. Gomez <Kevin Gomez - Last Filed: 08/03/17 16:19> Objective - Vital Signs/Intake and Output Vital Signs (last 24 hours): Temp Pulse Resp BP Pulse Ox 98.9 F 86 20 148/105 H 97 08/03/17 07:30 08/03/17 10:03 08/03/17 07:30 08/03/17 10:03 08/03/17 07:30 Intake and Output: 08/03/17 08/03/17 06:59 18:59 Intake Total 3000 Output Total 500 Balance 2500 - Medications Medications: Current Medications Aspirin (Ecotrin) 81 mg PO DAILY [facility] Last Admin: 08/03/17 10:11 Dose: 81 mg Docusate Sodium (Colace) 100 mg PO BID [facility] Last Admin: 08/03/17 10:11 Dose: 100 mg Famotidine (Pepcid) 20 mg IVP BID [facility] Last Admin: 08/03/17 09:59 Dose: 20 mg Ferrous Sulfate (Feosol) 324 mg PO BID [facility] Last Admin: 08/03/17 09:59 Dose: 324 mg Folic Acid (Folic Acid) 1 mg PO DAILY [facility] Last Admin: 08/03/17 09:59 Dose: 1 mg Thiamine HCl 100 mg/ Sodium (Chloride) 51 mls @ 52 mls/hr IV Q8 [facility] Stop: 08/05/17 14:01 Last Admin: 08/03/17 14:52 Dose: 52 mls/hr Thiamine HCl 100 mg/Multivitamins/Vitamin C 5 ml/Folic Acid 1 mg/ Dextrose/ Sodium Chloride 1,006.2 mls @ 100 mls/hr IV .Q10H4M [facility] Last Admin: 08/03/17 14:52 Dose: 100 mls/hr Lorazepam (Ativan) 1 mg IM Q8H PRN; Protocol PRN Reason: Anxiety Lorazepam (Ativan) 1 mg IVP Q3H PRN; Protocol PRN Reason: Symptoms of alcohol withdrawl Metoprolol Succinate (Toprol Xl) 25 mg PO DAILY [facility] Last Admin: 08/03/17 10:03 Dose: 25 mg Morphine Sulfate (Morphine) 1 mg IVP Q4H PRN PRN Reason: Pain, moderate (4-7) Last Admin: 08/02/17 19:36 Dose: 1 mg Ondansetron HCl (Zofran Inj) 4 mg IVP Q4H PRN PRN Reason: Nausea/Vomiting - Labs Labs: 08/03/17 06:45 08/03/17 06:45 Attending/Attestation - Attestation I have personally seen and examined this patient.: Yes I have fully participated in the care of the patient.: Yes I have reviewed all pertinent clinical information, including history, physical exam and plan: Yes Notes (Text): I have seen and examined the patient at bedside. Agree with the above note with the following additions/ exceptions: Briefly this is 51 year old male with history of chronic alcohol induced pancreatitis, Iron deficiency anemia, chronic thrombocytopenia, tobacco use, substance abuse now methadone dependent, chronic aortic dissection s/p repair, HTN, dyslipidemia who was admitted for acute on chronic pancreatitis. GB US done 2 months ago was negative for cholelithiasis. There is no hypertriglyceridemia. Patient remains nauseous and complains of abdominal pain. He will remain NPO. Continue IVF, IV analgesics, antiemetics, folic acid,thiamine and MVI. He drinks on regular basis. He is alert and oriented x3. Patient reports that he feels weak and tired. He has been sleeping most of the time. Will taper ativan. Patient had AGMA which has resolved. Also had hyponatremia and due that fluids were changed to D5NS. He has transaminitis. Hep panel is pending. Upon discharge patient will follow up with Dr Rodrigues. Dr Kevin Gomez
--- NOTE | 2017-08-03 17:47 | CARD ---
APPROVED REPORT EKG Measurement Heart [id number] <Conclusion> Normal sinus rhythm Nonspecific ST and T wave abnormality Abnormal ECG
[2017-08-04] MEDS ORDERED: Naproxen 550 mg Tab PO STA (05:18)
[2017-08-04] MEDS: Thiamine 100 MG in Sodium Chloride 0.9% 50 ML IV SCH ×3 (05:29→21:47)
[2017-08-04 07:13] LABS: BASO # 0.02 K/mm3 (0.0-2.0); BASO % 0.3 % (0.0-3.0); EOS # 0.1 (0.0-0.7); EOS % 1.4 % (1.5-5.0); GRAN # 4.64 (1.4-6.5); GRAN % 65.7 % (50.0-68.0); HEMOGLOBIN 12.3 g/dL (14.0-18.0); LYMPH # 1.8 (1.2-3.4); LYMPH % 24.8 % (22.0-35.0); MEAN CELL VOLUME 78.7 fl (80.0-105.0); MEAN CORPUSCULAR HEMOGLOBIN 27.3 pg (25.0-35.0); MEAN CORPUSCULAR HGB CONC 34.6 g/dl (31.0-37.0); MEAN PLATELET VOLUME 9.9 fl (7.0-11.0); MONO # 0.6 (0.1-0.6); MONO % 7.8 % (1.0-6.0); RBC 4.51 10^6/uL (3.5-6.1); WHITE BLOOD COUNT 7.1 10^3/ul (4.5-11.0)
[2017-08-04 07:30] LABS: ALB/GLOB RATIO 1.1 (1.1-1.8); ALBUMIN 3.5 g/dL (3.0-4.8); ALT/SGPT 81 U/L (7-56); AST/SGOT 135 U/L (17-59); BLOOD UREA NITROGEN 11 mg/dL (7-21); CALCIUM 9.3 mg/dL (8.4-10.5); GFR AFRICAN-AMERICAN > 60; GFR NON-AFRICAN AMERICAN > 60; MAGNESIUM 1.6 mg/dL (1.7-2.2)
[2017-08-04] MEDS ORDERED: Potassium Chloride 20 mEq ER Tab PO ONE (07:34)
[2017-08-04] MEDS ORDERED: Magnesium Oxide 400 mg Tab UD PO ONE (07:35)
[2017-08-04] MEDS: Metoprolol Succinate 25 mg XL Tab PO SCH (09:40)
[2017-08-04] MEDS ORDERED: Iohexol 350 MG/100 ML VIAL ONE (09:55)
--- NOTE | 2017-08-04 11:20 | CT ---
PROCEDURE: CT Abdomen and Pelvis with contrast HISTORY: abd pain/pancreatitis COMPARISON: Aortic dissection study 05/18/2017 TECHNIQUE: Contrast dose: 100 cc of Omni 350 Radiation dose: Total exam DLP = 223 mGy-cm. This CT exam was performed using one or more of the following dose reduction techniques: Automated exposure control, adjustment of the mA and/or kV according to patient size, and/or use of iterative reconstruction technique. FINDINGS: LOWER THORAX: Unremarkable. LIVER: Unremarkable. No gross lesion or ductal dilatation. GALLBLADDER AND BILE DUCTS: Unremarkable. PANCREAS: There is dilatation of the pancreatic duct in the tail of the pancreas. This is unchanged. There is no evidence of acute pancreatitis. SPLEEN: Unremarkable. ADRENALS: Unremarkable. No mass. KIDNEYS AND URETERS: Unremarkable. No hydronephrosis. No solid mass. VASCULATURE: There is a chronic aortic dissection that is stable in appearance BOWEL: Unremarkable. No obstruction. No gross mural thickening. APPENDIX: Normal appendix. PERITONEUM: Unremarkable. No free fluid. No free air. LYMPH NODES: Unremarkable. No enlarged lymph nodes. BLADDER: Unremarkable. REPRODUCTIVE: Unremarkable. BONES: No acute fracture. OTHER FINDINGS: None. IMPRESSION: Chronic aortic dissection stable in appearance. Dilatation of the pancreatic duct in the tail of the pancreas unchanged. No acute intra-abdominal findings
--- NOTE | 2017-08-04 13:12 | CP.PCM.PN ---
<Odette Herad - Last Filed: 08/04/17 13:18> Subjective - Date & Time of Evaluation Date of Evaluation: 08/04/17 Time of Evaluation: 07:00 - Subjective Subjective: Dr. Jason Petersen Pt was seen and examined at bedside. Pt is feeling slightly better however still notes abdominal pain today. He is feeling slightly nauseous but is hungry and would like to eat. Pt is voiding regularly however has not had a bm yet. As per nursing staff, pt was disoriented and experienced an episode of hallucinations overnight. Pt is AAOx3 this morning and denies any current audio/ visual hallucinations. Pt has fine tremors this morning. Pt denied fever, chills , sob, chest pains, dizziness, headache. Objective - Vital Signs/Intake and Output Vital Signs (last 24 hours): Temp Pulse Resp BP Pulse Ox 98.2 F 91 H 20 162/110 H 96 08/04/17 07:30 08/04/17 09:40 08/04/17 07:30 08/04/17 09:40 08/04/17 07:30 Intake and Output: 08/04/17 08/04/17 06:59 18:59 Intake Total 0 Output Total 1100 Balance -1100 - Medications Medications: Current Medications Aspirin (Ecotrin) 81 mg PO DAILY [facility] Last Admin: 08/04/17 09:41 Dose: 81 mg Docusate Sodium (Colace) 100 mg PO BID [facility] Last Admin: 08/04/17 09:41 Dose: 100 mg Famotidine (Pepcid) 40 mg PO [facility] Ferrous Sulfate (Feosol) 324 mg PO BID [facility] Last Admin: 08/04/17 09:41 Dose: 324 mg Folic Acid (Folic Acid) 1 mg PO DAILY [facility] Last Admin: 08/04/17 09:41 Dose: 1 mg Thiamine HCl 100 mg/ Sodium (Chloride) 51 mls @ 52 mls/hr IV Q8 [facility] Stop: 08/05/17 14:01 Last Admin: 08/04/17 05:29 Dose: 52 mls/hr Thiamine HCl 100 mg/Multivitamins/Vitamin C 5 ml/Folic Acid 1 mg/ Dextrose/ Sodium Chloride 1,006.2 mls @ 100 mls/hr IV .Q10H4M [facility] Last Admin: 08/03/17 14:52 Dose: 100 mls/hr Lorazepam (Ativan) 1 mg IM Q8H [facility]NA PRN Reason: Protocol Last Admin: 08/04/17 08:15 Dose: 1 mg Lorazepam (Ativan) 2 mg IVP Q3H PRN; Protocol PRN Reason: Symptoms of alcohol withdrawl Losartan Potassium (Cozaar) 50 mg PO DAILY [facility] Metoprolol Succinate (Toprol Xl) 50 mg PO DAILY [facility] Morphine Sulfate (Morphine) 1 mg IVP Q4H PRN PRN Reason: Pain, moderate (4-7) Last Admin: 08/02/17 19:36 Dose: 1 mg Ondansetron HCl (Zofran Inj) 4 mg IVP Q4H PRN PRN Reason: Nausea/Vomiting - Labs Labs: 08/04/17 06:30 08/04/17 06:30 - Constitutional Appears: No Acute Distress - Head Exam Head Exam: ATRAUMATIC, NORMAL INSPECTION, NORMOCEPHALIC - Eye Exam Eye Exam: EOMI, Normal appearance, PERRL Pupil Exam: NORMAL ACCOMODATION, PERRL - ENT Exam ENT Exam: Mucous Membranes Moist, Normal Exam - Respiratory Exam Respiratory Exam: Clear to Ausculation Bilateral, NORMAL BREATHING PATTERN - Cardiovascular Exam Cardiovascular Exam: REGULAR RHYTHM, +S1, +S2. absent: Murmur - GI/Abdominal Exam GI & Abdominal Exam: Soft, Tenderness (LUQ), Diminished Bowel Sounds - Extremities Exam Extremities Exam: Full ROM, Normal Capillary Refill, Normal Inspection. absent : Joint Swelling, Pedal Edema - Neurological Exam Neurological Exam: Alert, Awake, CN II-XII Intact, Oriented x3 - Psychiatric Exam Psychiatric exam: Normal Affect, Normal Mood - Skin Skin Exam: Dry, Intact, Normal Color, Warm Assessment and Plan - Assessment and Plan (Free Text) Assessment: 51 AA M with a PMHx of polysubstance abuse on methadone, daily alcohol abuse, HTN, HLD and chronic pancreatitis admitted with acute on chronic pancreatitis. Acute on Chronic Pancreatitis - likely due Etoh abuse - lipase of 1372 on admission and downtrending - abdomen paper twister tender, will obtain CT abd/pelv - CLD, advance diet as tolerated - Banana Bag @ 100cc/hr - no prolonged QT, zofran prn nausea - analgesics AGAP Metabolic Acidosis - resolved - 2/2 EtOH ketoacidosis, starvation acidosis and lactic acidosis - Dr. Walker, Equipment Mechanic consulted, recommended D5NS@100, thiamin 100mg iv q8h x3 days Hypophosphatemia - supplemented - continue to monitor and replete as needed Hypokalemia - supplemented Hypomagnesemia - supplemented ETOH Abuse - thiamine, b12, folate supplement - counselled on cessation of alcohol abuse, provided information on AA, pt refusing at this time - CIWA protocol, continue to taper ativan as tolerated - Ativan sana and prn for ETOH withdrawl - holding hepatotoxic agents, transaminitis Substance abuse - hx heroin abuse- sniff for 10 yrs, on methadone now, uses SPO, dosage confirmed 130mg daily @8am - monitor for withdrawl symptoms Anemia - microcytic - continue Feosol - monitor closely with daily CBC Transaminitis - 2/2 EtOH abuse/fatty liver - hep panel pending - no episodes of hypotension Thrombocytopenia - likely 2/2 etoh abuse - avoid heparin/ppi, on pepcid - monitor closely via CBC Hx HTN - will continue home med, meotprolol - monitor closely HLD - lipid panel wnl - lipitor on hold PPX - scds - pepcid Seen reviewed and discussed with attending, Dr. Gomez <Kevin Gomez - Last Filed: 08/04/17 16:10> Objective - Vital Signs/Intake and Output Vital Signs (last 24 hours): Temp Pulse Resp BP Pulse Ox 98.2 F 97 H 20 138/105 H 96 08/04/17 07:30 08/04/17 14:00 08/04/17 07:30 08/04/17 14:00 08/04/17 07:30 Intake and Output: 08/04/17 08/04/17 06:59 18:59 Intake Total 0 600 Output Total 1100 Balance -1100 600 - Medications Medications: Current Medications Aspirin (Ecotrin) 81 mg PO DAILY [facility] Last Admin: 08/04/17 09:41 Dose: 81 mg Docusate Sodium (Colace) 100 mg PO BID [facility] Last Admin: 08/04/17 09:41 Dose: 100 mg Famotidine (Pepcid) 40 mg PO HS [facility] Ferrous Sulfate (Feosol) 324 mg PO BID [facility] Last Admin: 08/04/17 09:41 Dose: 324 mg Folic Acid (Folic Acid) 1 mg PO DAILY [facility] Last Admin: 08/04/17 09:41 Dose: 1 mg Thiamine HCl 100 mg/ Sodium (Chloride) 51 mls @ 52 mls/hr IV Q8 [facility] Stop: 08/05/17 14:01 Last Admin: 08/04/17 14:15 Dose: 52 mls/hr Thiamine HCl 100 mg/Multivitamins/Vitamin C 5 ml/Folic Acid 1 mg/ Dextrose/ Sodium Chloride 1,006.2 mls @ 100 mls/hr IV .Q10H4M [facility] Last Admin: 08/03/17 14:52 Dose: 100 mls/hr Lorazepam (Ativan) 1 mg IM Q8H [facility]NA PRN Reason: Protocol Last Admin: 08/04/17 08:15 Dose: 1 mg Lorazepam (Ativan) 2 mg IVP Q3H PRN; Protocol PRN Reason: Symptoms of alcohol withdrawl Losartan Potassium (Cozaar) 50 mg PO DAILY [facility] Last Admin: 08/04/17 13:30 Dose: 50 mg Methadone HCl (Methadone) 130 mg PO DAILY [facility] Stop: 08/09/17 06:45 Metoprolol Succinate (Toprol Xl) 50 mg PO DAILY [facility] Last Admin: 08/04/17 14:00 Dose: 50 mg Morphine Sulfate (Morphine) 1 mg IVP Q4H PRN PRN Reason: Pain, moderate (4-7) Last Admin: 08/02/17 19:36 Dose: 1 mg Ondansetron HCl (Zofran Inj) 4 mg IVP Q4H PRN PRN Reason: Nausea/Vomiting - Labs Labs: 08/04/17 06:30 08/04/17 06:30 Attending/Attestation - Attestation I have personally seen and examined this patient.: Yes I have fully participated in the care of the patient.: Yes I have reviewed all pertinent clinical information, including history, physical exam and plan: Yes Notes (Text): I have seen and examined the patient at bedside. Agree with the above note with the following additions/ exceptions: Briefly this is 51 year old male with history of chronic alcohol induced pancreatitis, Iron deficiency anemia, chronic thrombocytopenia, tobacco use, substance abuse now methadone dependent, chronic aortic dissection s/p repair, HTN, dyslipidemia who was admitted for acute on chronic pancreatitis. GB US done 2 months ago was negative for cholelithiasis. There is no hypertriglyceridemia. Reports that abdominal pain is slightly better. Denies any nausea or vomiting. He had hallucinations this morning. Patient will be started on clear liquid diet. CT abdomen reviewed. Patient needs to follow up with GI. Continue IVF, IV analgesics, antiemetics, folic acid,thiamine and MVI. He drinks on regular basis. He is alert and oriented x3. Will continue ativan. Patient had AGMA which has resolved. He has transaminitis. Hep panel is pending. Upon discharge patient will follow up with Dr Rodrigues. Dr Kevin Gomez
[2017-08-04] MEDS: Metoprolol Succinate 50 mg XL Tab PO SCH (14:00)
--- NOTE | 2017-08-04 16:45 | CP.PCM.PN ---
Subjective - Date & Time of Evaluation Date of Evaluation: 08/04/17 Time of Evaluation: 16:43 - Subjective Subjective: Follow up Nephrology Consultation: Assessment: stable high anion gap metabolic acidosis with appropriate respiratory compensation: likely due to alcohol ketoacidosis and starvation ketoacidosis, lactic acidosis Hyponatremia, hypophosphatemia, hypomagnesemia Acute pancreatitis hypertension, aortic dissection s/p repair, chronic daily alcohol abuse/ dependence, current active smoker on chronic methadone thrombocytopenia Plan No acute need for renal replacement therapy at this time. no hx of toxic ingestions. Hypertension control with meds as ordered. Increased toprol XL and added losartan continue with IVF with FA, MVI and thiamine thiamine 100 mg IV q 8hr in addition (for 3 days) , giving high dose thiamine due to his alcoholic ketoacidosis supplement electrolytes pt educated to stop smoking and to abstain from alcohol. need lifestyle modifications Monitor Input/Output, daily weights and renal function with basic metabolic panel Dose meds/antibiotics for normal GFR. Glycemic control. Further work up/ management as per primary team Thanks for allowing me to participate in care of your patient. Please call if any Qs. Dr Matthias Walker Office: [phone] HPI: Pt is a 51 M with hx of hypertension (many years), aortic dissection s/p repair, chronic daily alcohol abuse/dependence, current active smoker presented with complaints of pain in upper abdomen with multiple episode of nausea and vomiting x 2 days which was associated with decreased oral intake. pt was found to have acute pancreatitis. also with low serum bicarb hence renal consulted for acidosis Denies OTC/herbal meds or NSAIDs except alleve. denies taking tylenol or excedrin. denies any toxin ingestion or drinking liquor from street or spurious alcohols such as anti-freeze etc. ROS: Cardiovascular: No chest pain. Pulmonary: feels some shortness of breath Gastrointestinal: c/o abdominal pain c/o nausea. c/o vomiting. Genitourinary: No pain while urinating. Denies blood in urine. All other negative Physical Examination: General Appearance: uncomfortable, in no acute respiratory distress, co- operative . Vitals reviewed and noted as below Head; Atraumatic, normocephalic ENT: no ulcers no thrush. Tongue is midline. Oropharynx: no rash or ulcers. EYES: Pupils are equal, round and reactive to light accommodation. Eye muscles and extraocular movement intact. Sclera is anicteric. Neck; supple no lymphadenopathy, no thyromegaly or bruit Lungs: Normal respiratory rate/effort. Breath sounds bilateral equal and clear Heart: Normal rate. s1s2 normal. No rub or gallop. Extremities: no edema. No varicose veins Neurological: Patient is alert, awake and oriented to person, place and time. No focal deficit. Strength bilateral appropriate and equal. mild resting tremors + Skin: Warm and dry. Normal turgor. No rash. Palpitation: Normal elasticity for age Abdomen: Abdomen is soft. Bowel sounds +. There is mild epigastric abdominal tenderness, no guarding/rigidity no organomegaly Psych: normal insight and normal affect/mood MSK: no joint tenderness or swelling. Digits and nails normal, no deformity : kidney or bladder not palpable Labs/imaging reviewed. Past medical history, past surgical history, family history, social history, allergy reviewed and noted as below Family hx: no hx of CKD. Rest non-contributory Objective - Vital Signs/Intake and Output Vital Signs (last 24 hours): Temp Pulse Resp BP Pulse Ox 98.5 F 83 20 135/84 100 08/04/17 16:31 08/04/17 16:31 08/04/17 16:31 08/04/17 16:31 08/04/17 16:31 Intake and Output: 08/04/17 08/04/17 06:59 18:59 Intake Total 0 600 Output Total 1100 Balance -1100 600 - Medications Medications: Current Medications Aspirin (Ecotrin) 81 mg PO DAILY [facility] Last Admin: 08/04/17 09:41 Dose: 81 mg Docusate Sodium (Colace) 100 mg PO BID [facility] Last Admin: 08/04/17 09:41 Dose: 100 mg Famotidine (Pepcid) 40 mg PO [facility] Ferrous Sulfate (Feosol) 324 mg PO BID [facility] Last Admin: 08/04/17 09:41 Dose: 324 mg Folic Acid (Folic Acid) 1 mg PO DAILY [facility] Last Admin: 08/04/17 09:41 Dose: 1 mg Thiamine HCl 100 mg/ Sodium (Chloride) 51 mls @ 52 mls/hr IV Q8 [facility] Stop: 08/05/17 14:01 Last Admin: 08/04/17 14:15 Dose: 52 mls/hr Thiamine HCl 100 mg/Multivitamins/Vitamin C 5 ml/Folic Acid 1 mg/ Dextrose/ Sodium Chloride 1,006.2 mls @ 100 mls/hr IV .Q10H4M [facility] Last Admin: 08/03/17 14:52 Dose: 100 mls/hr Lorazepam (Ativan) 1 mg IM Q8H [facility] PRN Reason: Protocol Last Admin: 08/04/17 16:28 Dose: 1 mg Lorazepam (Ativan) 2 mg IVP Q3H PRN; Protocol PRN Reason: Symptoms of alcohol withdrawl Losartan Potassium (Cozaar) 50 mg PO DAILY [facility] Last Admin: 08/04/17 13:30 Dose: 50 mg Methadone HCl (Methadone) 130 mg PO DAILY [facility] Stop: 08/09/17 06:45 Metoprolol Succinate (Toprol Xl) 50 mg PO DAILY [facility] Last Admin: 08/04/17 14:00 Dose: 50 mg Morphine Sulfate (Morphine) 1 mg IVP Q4H PRN PRN Reason: Pain, moderate (4-7) Last Admin: 08/02/17 19:36 Dose: 1 mg Ondansetron HCl (Zofran Inj) 4 mg IVP Q4H PRN PRN Reason: Nausea/Vomiting - Labs Labs: 08/04/17 06:30 08/04/17 06:30
--- NOTE | 2017-08-04 18:21 | CARD ---
APPROVED REPORT EKG Measurement Heart [id number] KS [id number] <Conclusion> Normal sinus rhythm Possible Left atrial enlargement Nonspecific T wave abnormality Abnormal ECG
[2017-08-05] MEDS: Thiamine 100 MG in Sodium Chloride 0.9% 50 ML IV SCH ×3 (05:54→16:31)
[2017-08-05] MEDS: THIAMINE IV SCH (05:55)
[2017-08-05] MEDS: DEXTROSE IV SCH (05:55)
[2017-08-05] MEDS: MULTIVITAMIN IV SCH (05:55)
[2017-08-05] MEDS: NS IV SCH (05:55)
[2017-08-05] MEDS: FOLIC ACID IV SCH (05:55)
[2017-08-05 07:23] LABS: BASO # 0.04 K/mm3 (0.0-2.0); BASO % 0.6 % (0.0-3.0); EOS # 0.3 (0.0-0.7); EOS % 3.6 % (1.5-5.0); GRAN # 4.68 (1.4-6.5); GRAN % 67.8 % (50.0-68.0); HEMOGLOBIN 11.6 g/dL (14.0-18.0); LYMPH # 1.6 (1.2-3.4); LYMPH % 22.5 % (22.0-35.0); MEAN CELL VOLUME 79.4 fl (80.0-105.0); MEAN CORPUSCULAR HEMOGLOBIN 27.8 pg (25.0-35.0); MEAN PLATELET VOLUME 10.4 fl (7.0-11.0); MONO # 0.4 (0.1-0.6); MONO % 5.5 % (1.0-6.0); RBC 4.17 10^6/uL (3.5-6.1); RED CELL DISTRIBUTION WIDTH 14.7 % (11.5-14.5); WHITE BLOOD COUNT 6.9 10^3/ul (4.5-11.0)
[2017-08-05 07:45] LABS: ALB/GLOB RATIO 1.1 (1.1-1.8); ALBUMIN 3.2 g/dL (3.0-4.8); ALT/SGPT 115 U/L (7-56); AST/SGOT 177 U/L (17-59); BLOOD UREA NITROGEN 9 mg/dL (7-21); CALCIUM 9.3 mg/dL (8.4-10.5); GFR AFRICAN-AMERICAN > 60; GFR NON-AFRICAN AMERICAN > 60; MAGNESIUM 1.5 mg/dL (1.7-2.2)
[2017-08-05] MEDS ORDERED: Magnesium Sulfate 2 GM in Sodium Chloride 0.9% 100 ML IVPB ONE (09:04)
[2017-08-05] MEDS: Metoprolol Succinate 50 mg XL Tab PO SCH (10:39)
--- NOTE | 2017-08-05 11:20 | CP.PCM.PN ---
Subjective - Date & Time of Evaluation Date of Evaluation: 08/05/17 Time of Evaluation: 11:17 - Subjective Subjective: Subjective: Follow up Nephrology Consultation: Assessment: stable metabolic acidosis hyponatremia hypophos hypomag Acute pancreatitis hypertension, aortic dissection s/p repair, chronic daily alcohol abuse/ dependence, current active smoker on chronic methadone thrombocytopenia Plan ERIC has resolved bp has improved monitor mag, if drops further will need repletion S: fatigued, offered no complaints today Physical Examination: General Appearance: uncomfortable, in no acute respiratory distress, co- operative . Vitals reviewed and noted as below Head; Atraumatic, normocephalic ENT: no ulcers no thrush. Tongue is midline. Oropharynx: no rash or ulcers. EYES: Pupils are equal, round and reactive to light accommodation. Eye muscles and extraocular movement intact. Sclera is anicteric. Neck; supple no lymphadenopathy, no thyromegaly or bruit Lungs: Normal respiratory rate/effort. Breath sounds bilateral equal and clear Heart: Normal rate. s1s2 normal. No rub or gallop. Extremities: no edema. No varicose veins Neurological: Patient is alert, awake and oriented to person, place and time. No focal deficit. Strength bilateral appropriate and equal. mild resting tremors + Skin: Warm and dry. Normal turgor. No rash. Palpitation: Normal elasticity for age Abdomen: Abdomen is soft. Bowel sounds +. mild epigastic pain w/ palpation Psych: normal insight and normal affect/mood MSK: no joint tenderness or swelling. Digits and nails normal, no deformity : kidney or bladder not palpable Labs/imaging reviewed. Past medical history, past surgical history, family history, social history, allergy reviewed and noted as below Family hx: no hx of CKD. Rest non-contributory Objective - Vital Signs/Intake and Output Vital Signs (last 24 hours): Temp Pulse Resp BP Pulse Ox 97.4 F L 80 20 146/98 H 97 08/05/17 08:14 08/05/17 10:39 08/05/17 08:14 08/05/17 10:39 08/05/17 08:14 Intake and Output: 08/05/17 08/05/17 06:59 18:59 Intake Total 360 Output Total 300 Balance 60 - Medications Medications: Current Medications Aspirin (Ecotrin) 81 mg PO DAILY [facility] Last Admin: 08/05/17 10:40 Dose: 81 mg Docusate Sodium (Colace) 100 mg PO BID [facility] Last Admin: 08/05/17 10:40 Dose: 100 mg Famotidine (Pepcid) 40 mg PO HS [facility] Last Admin: 08/04/17 21:47 Dose: 40 mg Ferrous Sulfate (Feosol) 324 mg PO BID [facility] Last Admin: 08/05/17 10:45 Dose: 324 mg Folic Acid (Folic Acid) 1 mg PO DAILY [facility] Last Admin: 08/05/17 10:40 Dose: 1 mg Thiamine HCl 100 mg/ Sodium (Chloride) 51 mls @ 52 mls/hr IV Q8 [facility] Stop: 08/05/17 14:01 Last Admin: 08/05/17 05:54 Dose: 52 mls/hr Thiamine HCl 100 mg/Multivitamins/Vitamin C 10 ml/Folic Acid 1 mg/ Dextrose/ Sodium Chloride 1,011.2 mls @ 100 mls/hr IV .Q10H7M [facility] Last Admin: 08/05/17 05:55 Dose: 100 mls/hr Lorazepam (Ativan) 2 mg IVP Q3H PRN; Protocol PRN Reason: Symptoms of alcohol withdrawl Last Admin: 08/05/17 04:06 Dose: 2 mg Lorazepam (Ativan) 0.5 mg IVP Q8H [facility] PRN Reason: Protocol Losartan Potassium (Cozaar) 50 mg PO DAILY [facility] Last Admin: 08/05/17 10:39 Dose: 50 mg Methadone HCl (Methadone) 130 mg PO DAILY [facility] Stop: 08/09/17 08:00 Last Admin: 08/05/17 07:50 Dose: 130 mg Metoprolol Succinate (Toprol Xl) 50 mg PO DAILY [facility] Last Admin: 08/05/17 10:39 Dose: 50 mg Morphine Sulfate (Morphine) 1 mg IVP Q4H PRN PRN Reason: Pain, moderate (4-7) Last Admin: 08/02/17 19:36 Dose: 1 mg Ondansetron HCl (Zofran Inj) 4 mg IVP Q4H PRN PRN Reason: Nausea/Vomiting - Labs Labs: 08/05/17 06:45 08/05/17 06:45
[2017-08-05 11:43] LABS: HEPATITIS B SURFACE AG NEGATIVE (NEGATIVE)
[2017-08-05 11:48] LABS: HEPATITIS A IGM NEGATIVE (NEGATIVE); HEPATITIS B CORE AB Negative (NEGATIVE)
--- NOTE | 2017-08-05 11:50 | CP.PCM.PN ---
<Masood Daniels - Last Filed: 08/05/17 11:38> Subjective - Date & Time of Evaluation Date of Evaluation: 08/05/17 Time of Evaluation: 11:38 - Subjective Subjective: Medicine Progress Note Pt seen and examined at bedside. Pt states that he still has abdominal pain that radiates to his back. Pt states that he is tolerating diet with no further vomiting episodes. Pt denies CP, SOB, fever, chills, LOPEZ, or dizziness. Objective - Vital Signs/Intake and Output Vital Signs (last 24 hours): Temp Pulse Resp BP Pulse Ox 97.4 F L 80 20 146/98 H 97 08/05/17 08:14 08/05/17 10:39 08/05/17 08:14 08/05/17 10:39 08/05/17 08:14 Intake and Output: 08/05/17 08/05/17 06:59 18:59 Intake Total 360 Output Total 300 Balance 60 - Medications Medications: Current Medications Aspirin (Ecotrin) 81 mg PO DAILY [facility] Last Admin: 08/05/17 10:40 Dose: 81 mg Docusate Sodium (Colace) 100 mg PO BID [facility] Last Admin: 08/05/17 10:40 Dose: 100 mg Famotidine (Pepcid) 40 mg PO HS [facility] Last Admin: 08/04/17 21:47 Dose: 40 mg Ferrous Sulfate (Feosol) 324 mg PO BID [facility] Last Admin: 08/05/17 10:45 Dose: 324 mg Folic Acid (Folic Acid) 1 mg PO DAILY [facility] Last Admin: 08/05/17 10:40 Dose: 1 mg Thiamine HCl 100 mg/ Sodium (Chloride) 51 mls @ 52 mls/hr IV Q8 [facility] Stop: 08/05/17 14:01 Last Admin: 08/05/17 05:54 Dose: 52 mls/hr Thiamine HCl 100 mg/Multivitamins/Vitamin C 10 ml/Folic Acid 1 mg/ Dextrose/ Sodium Chloride 1,011.2 mls @ 100 mls/hr IV .Q10H7M [facility] Last Admin: 08/05/17 05:55 Dose: 100 mls/hr Lorazepam (Ativan) 2 mg IVP Q3H PRN; Protocol PRN Reason: Symptoms of alcohol withdrawl Last Admin: 08/05/17 04:06 Dose: 2 mg Lorazepam (Ativan) 0.5 mg IVP Q8H [facility] PRN Reason: Protocol Losartan Potassium (Cozaar) 50 mg PO DAILY [facility] Last Admin: 08/05/17 10:39 Dose: 50 mg Methadone HCl (Methadone) 130 mg PO DAILY [facility] Stop: 08/09/17 08:00 Last Admin: 08/05/17 07:50 Dose: 130 mg Metoprolol Succinate (Toprol Xl) 50 mg PO DAILY [facility] Last Admin: 08/05/17 10:39 Dose: 50 mg Morphine Sulfate (Morphine) 1 mg IVP Q4H PRN PRN Reason: Pain, moderate (4-7) Last Admin: 08/02/17 19:36 Dose: 1 mg Ondansetron HCl (Zofran Inj) 4 mg IVP Q4H PRN PRN Reason: Nausea/Vomiting - Labs Labs: 08/05/17 06:45 08/05/17 06:45 - Constitutional Appears: No Acute Distress - Head Exam Head Exam: NORMAL INSPECTION - Eye Exam Eye Exam: Normal appearance - ENT Exam ENT Exam: Normal Exam - Neck Exam Neck Exam: Normal Inspection - Respiratory Exam Respiratory Exam: Clear to Ausculation Bilateral. absent: Rales, Rhonchi, Wheezes - Cardiovascular Exam Cardiovascular Exam: RRR, +S1, +S2. absent: Gallop, Rubs, Murmur - GI/Abdominal Exam GI & Abdominal Exam: Soft, Tenderness (epigastric, improved). absent: Distended , Guarding, Rebound - Extremities Exam Extremities Exam: Normal Inspection - Neurological Exam Neurological Exam: Alert, Awake, Oriented x3 - Psychiatric Exam Psychiatric exam: Normal Affect, Normal Mood - Skin Skin Exam: Dry, Intact, Normal Color, Warm Assessment and Plan - Assessment and Plan (Free Text) Assessment: 51 AA M with a PMHx of polysubstance abuse on methadone, daily alcohol abuse, HTN, HLD and chronic pancreatitis admitted with acute on chronic pancreatitis. Plan: Acute on Chronic Pancreatitis - likely due Etoh abuse - lipase of 1372 on admission and downtrending - CT abd/pelv showed stable chronic aortic dissection, dilatation of pancreatic duct in tail of pancreas - HHD, patient tolerating - Banana Bag @ 100cc/hr - no prolonged QT, zofran prn nausea - analgesics AGAP Metabolic Acidosis - resolved - 2/2 EtOH ketoacidosis, starvation acidosis and lactic acidosis - Dr. Walker, Operational Assistant consulted, recommended D5NS@100, thiamin 100mg iv q8h x3 days Hypophosphatemia - supplemented - continue to monitor and replete as needed Hypokalemia, resolved - Cont to monitor, replete as needed Hypomagnesemia - Mg 1.5 today - Repleted - Cont to monitor, replete as needed ETOH Abuse - thiamine, b12, folate supplement - counselled on cessation of alcohol abuse, provided information on AA, pt refusing at this time - CIWA protocol - Ativan tapered to 0.5 mg Q8h - Cont prn Ativan for withdrawal - holding hepatotoxic agents, transaminitis Substance abuse - hx heroin abuse- sniff for 10 yrs, on methadone now, uses [employer], dosage confirmed 130mg daily @8am - monitor for withdrawl symptoms Anemia - microcytic - continue Feosol - monitor closely with daily CBC Transaminitis - 2/2 EtOH abuse/fatty liver - hep panel pending - no episodes of hypotension Thrombocytopenia - likely 2/2 etoh abuse - avoid heparin/ppi, on pepcid - monitor closely via CBC Hx HTN - will continue home med, meotprolol - monitor closely HLD - lipid panel wnl - lipitor on hold PPX - scds - pepcid Seen reviewed and discussed with attending, Dr. Jason Daniels, PGY1 <Kevin Gomez - Last Filed: 08/06/17 14:16> Objective - Vital Signs/Intake and Output Vital Signs (last 24 hours): Temp Pulse Resp BP Pulse Ox 98.8 F 79 20 148/96 H 96 08/06/17 07:37 08/06/17 09:28 08/06/17 07:37 08/06/17 09:28 08/06/17 07:37 Intake and Output: 08/06/17 08/06/17 06:59 18:59 Intake Total 840 Output Total 725 Balance 115 - Medications Medications: Current Medications Aspirin (Ecotrin) 81 mg PO DAILY [facility] Last Admin: 08/06/17 09:28 Dose: 81 mg Docusate Sodium (Colace) 100 mg PO BID [facility] Last Admin: 08/06/17 09:27 Dose: 100 mg Famotidine (Pepcid) 40 mg PO HS [facility] Last Admin: 08/05/17 22:00 Dose: Not Given Ferrous Sulfate (Feosol) 324 mg PO BID [facility] Last Admin: 08/06/17 09:28 Dose: 324 mg Folic Acid (Folic Acid) 1 mg PO DAILY [facility] Last Admin: 08/06/17 12:17 Dose: 1 mg Thiamine HCl 100 mg/Multivitamins/Vitamin C 10 ml/Folic Acid 1 mg/ Dextrose/ Sodium Chloride 1,011.2 mls @ 100 mls/hr IV .Q10H7M [facility] Last Admin: 08/06/17 07:42 Dose: 100 mls/hr Lorazepam (Ativan) 1 mg IVP Q3H PRN; Protocol PRN Reason: Symptoms of alcohol withdrawl Losartan Potassium (Cozaar) 50 mg PO DAILY [facility] Last Admin: 08/06/17 09:28 Dose: 50 mg Methadone HCl (Methadone) 130 mg PO DAILY [facility] Stop: 08/09/17 08:00 Last Admin: 08/06/17 13:55 Dose: Not Given Metoprolol Succinate (Toprol Xl) 50 mg PO DAILY [facility] Last Admin: 08/06/17 09:27 Dose: 50 mg Morphine Sulfate (Morphine) 1 mg IVP Q4H PRN PRN Reason: Pain, moderate (4-7) Last Admin: 08/02/17 19:36 Dose: 1 mg Ondansetron HCl (Zofran Inj) 4 mg IVP Q4H PRN PRN Reason: Nausea/Vomiting - Labs Labs: 08/06/17 07:50 08/06/17 07:50 Attending/Attestation - Attestation I have personally seen and examined this patient.: Yes I have fully participated in the care of the patient.: Yes I have reviewed all pertinent clinical information, including history, physical exam and plan: Yes Notes (Text): I have seen and examined the patient at bedside. Agree with the above note with the following additions/ exceptions: Briefly this is 51 year old male with history of chronic alcohol induced pancreatitis, Iron deficiency anemia, chronic thrombocytopenia, tobacco use, substance abuse now methadone dependent, chronic aortic dissection s/p repair, HTN, dyslipidemia who was admitted for acute on chronic pancreatitis. GB US done 2 months ago was negative for cholelithiasis. There is no hypertriglyceridemia. Reports that abdominal pain is slightly better. Denies any nausea or vomiting. Patient is tolerating liquid diet. CT abdomen reviewed. Patient needs to follow up with GI however he states that he does not have GI doctor. Will refer him to [facility] clinic upon discharge. Continue IVF, IV analgesics, antiemetics, folic acid,thiamine and MVI. He drinks on regular basis. He is alert and oriented x3. Will continue ativan taper. Patient had AGMA which has resolved. He has transaminitis. Hep panel pending. Upon discharge patient will follow up with Dr Rodrigues. Dr Kevin Gomez
[2017-08-05 13:13] LABS: HEPATITIS C ANTIBODY Reactive (NEGATIVE)
[2017-08-06] MEDS: THIAMINE IV SCH ×3 (04:03→19:57)
[2017-08-06] MEDS: FOLIC ACID IV SCH ×3 (04:03→19:57)
[2017-08-06] MEDS: MULTIVITAMIN IV SCH ×3 (04:03→19:57)
[2017-08-06] MEDS: NS IV SCH ×3 (04:03→19:57)
[2017-08-06] MEDS: DEXTROSE IV SCH ×3 (04:03→19:57)
[2017-08-06 08:14] LABS: ALB/GLOB RATIO 1.2 (1.1-1.8); ALBUMIN 3.5 g/dL (3.0-4.8); ALT/SGPT 117 U/L (7-56); AST/SGOT 141 U/L (17-59); BLOOD UREA NITROGEN 9 mg/dL (7-21); CALCIUM 9.2 mg/dL (8.4-10.5); GFR AFRICAN-AMERICAN > 60; GFR NON-AFRICAN AMERICAN > 60; MAGNESIUM 1.8 mg/dL (1.7-2.2)
[2017-08-06 08:15] LABS: BASO # 0.02 K/mm3 (0.0-2.0); BASO % 0.3 % (0.0-3.0); EOS # 0.3 (0.0-0.7); GRAN # 4.05 (1.4-6.5); GRAN % 64.7 % (50.0-68.0); HEMOGLOBIN 11.4 g/dL (14.0-18.0); LYMPH # 1.5 (1.2-3.4); LYMPH % 23.5 % (22.0-35.0); MEAN CELL VOLUME 79.7 fl (80.0-105.0); MEAN CORPUSCULAR HEMOGLOBIN 27.5 pg (25.0-35.0); MEAN CORPUSCULAR HGB CONC 34.5 g/dl (31.0-37.0); MEAN PLATELET VOLUME 10.9 fl (7.0-11.0); MONO # 0.5 (0.1-0.6); MONO % 7.5 % (1.0-6.0); RBC 4.14 10^6/uL (3.5-6.1); RED CELL DISTRIBUTION WIDTH 14.8 % (11.5-14.5); WHITE BLOOD COUNT 6.3 10^3/ul (4.5-11.0)
[2017-08-06] MEDS: Metoprolol Succinate 50 mg XL Tab PO SCH (09:27)
--- NOTE | 2017-08-06 11:56 | CP.PCM.PN ---
<Masood Daniels - Last Filed: 08/06/17 11:52> Subjective - Date & Time of Evaluation Date of Evaluation: 08/06/17 Time of Evaluation: 11:52 - Subjective Subjective: Medicine Progress Note Pt seen and examined at bedside. No acute overnight events. Pt states that abdominal pain is worse today. Pt nauseous, but denies vomiting. Pt denied CP, SOB, fever, chills, LOPEZ, or dizziness. Objective - Vital Signs/Intake and Output Vital Signs (last 24 hours): Temp Pulse Resp BP Pulse Ox 98.8 F 79 20 148/96 H 96 08/06/17 07:37 08/06/17 09:28 08/06/17 07:37 08/06/17 09:28 08/06/17 07:37 Intake and Output: 08/06/17 08/06/17 06:59 18:59 Intake Total 840 Output Total 725 Balance 115 - Medications Medications: Current Medications Aspirin (Ecotrin) 81 mg PO DAILY [facility] Last Admin: 08/06/17 09:28 Dose: 81 mg Docusate Sodium (Colace) 100 mg PO BID [facility] Last Admin: 08/06/17 09:27 Dose: 100 mg Famotidine (Pepcid) 40 mg PO HS [facility] Last Admin: 08/05/17 22:00 Dose: Not Given Ferrous Sulfate (Feosol) 324 mg PO BID [facility] Last Admin: 08/06/17 09:28 Dose: 324 mg Folic Acid (Folic Acid) 1 mg PO DAILY [facility] Last Admin: 08/05/17 10:40 Dose: 1 mg Thiamine HCl 100 mg/Multivitamins/Vitamin C 10 ml/Folic Acid 1 mg/ Dextrose/ Sodium Chloride 1,011.2 mls @ 100 mls/hr IV .Q10H7M [facility] Last Admin: 08/06/17 07:42 Dose: 100 mls/hr Lorazepam (Ativan) 1 mg IVP Q3H PRN; Protocol PRN Reason: Symptoms of alcohol withdrawl Losartan Potassium (Cozaar) 50 mg PO DAILY [facility] Last Admin: 08/06/17 09:28 Dose: 50 mg Methadone HCl (Methadone) 130 mg PO DAILY [facility] Stop: 08/09/17 08:00 Last Admin: 08/06/17 07:35 Dose: 130 mg Metoprolol Succinate (Toprol Xl) 50 mg PO DAILY [facility] Last Admin: 08/06/17 09:27 Dose: 50 mg Morphine Sulfate (Morphine) 1 mg IVP Q4H PRN PRN Reason: Pain, moderate (4-7) Last Admin: 08/02/17 19:36 Dose: 1 mg Ondansetron HCl (Zofran Inj) 4 mg IVP Q4H PRN PRN Reason: Nausea/Vomiting - Labs Labs: 08/06/17 07:50 08/06/17 07:50 - Constitutional Appears: In Acute Distress - Eye Exam Eye Exam: Normal appearance - ENT Exam ENT Exam: Normal Exam - Respiratory Exam Respiratory Exam: Clear to Ausculation Bilateral. absent: Rales, Rhonchi, Wheezes - Cardiovascular Exam Cardiovascular Exam: RRR, +S1, +S2. absent: Gallop, Rubs, Murmur - GI/Abdominal Exam GI & Abdominal Exam: Guarding, Tenderness (diffuse). absent: Distended, Soft, Rebound - Extremities Exam Extremities Exam: Normal Inspection - Neurological Exam Neurological Exam: Alert, Awake, Oriented x3 - Psychiatric Exam Psychiatric exam: Normal Affect, Normal Mood - Skin Skin Exam: Dry, Intact, Normal Color, Warm Assessment and Plan - Assessment and Plan (Free Text) Assessment: 51 AA M with a PMHx of polysubstance abuse on methadone, daily alcohol abuse, HTN, HLD and chronic pancreatitis admitted with acute on chronic pancreatitis. Plan: Acute on Chronic Pancreatitis - likely due Etoh abuse - lipase of 1372 on admission and downtrending - CT abd/pelv showed stable chronic aortic dissection, dilatation of pancreatic duct in tail of pancreas - HHD, patient tolerating - Banana Bag @ 100cc/hr - no prolonged QT, zofran prn nausea - analgesics - NPO - GI consulted AGAP Metabolic Acidosis - resolved - 2/2 EtOH ketoacidosis, starvation acidosis and lactic acidosis - Dr. Walker, Title Investigator consulted Hypophosphatemia, resolved - continue to monitor and replete as needed Hypokalemia, resolved - Cont to monitor, replete as needed Hypomagnesemia, resolved - Cont to monitor, replete as needed ETOH Abuse - thiamine, b12, folate supplement - counselled on cessation of alcohol abuse, provided information on AA, pt refusing at this time - CIWA protocol - Discontinued scheduled Ativan - Tapered prn Ativan for withdrawal - holding hepatotoxic agents, transaminitis Substance abuse - hx heroin abuse- sniff for 10 yrs, on methadone now, uses Compring, dosage confirmed 130mg daily @8am - monitor for withdrawl symptoms Anemia - microcytic - continue Feosol - monitor closely with daily CBC Transaminitis - 2/2 EtOH abuse/fatty liver - hep panel pending - no episodes of hypotension Thrombocytopenia - likely 2/2 etoh abuse - avoid heparin/ppi, on pepcid - monitor closely via CBC Hx HTN - will continue home med, meotprolol - monitor closely HLD - lipid panel wnl - lipitor on hold PPX - scds - pepcid Seen reviewed and discussed with attending, Dr. Jason Daniels, PGY1 <Kevin Gomez - Last Filed: 08/06/17 16:16> Objective - Vital Signs/Intake and Output Vital Signs (last 24 hours): Temp Pulse Resp BP Pulse Ox 98.8 F 79 20 148/96 H 96 08/06/17 07:37 08/06/17 09:28 08/06/17 07:37 08/06/17 09:28 08/06/17 07:37 Intake and Output: 08/06/17 08/06/17 06:59 18:59 Intake Total 840 Output Total 725 Balance 115 - Medications Medications: Current Medications Aspirin (Ecotrin) 81 mg PO DAILY [facility] Last Admin: 08/06/17 09:28 Dose: 81 mg Docusate Sodium (Colace) 100 mg PO BID [facility] Last Admin: 08/06/17 09:27 Dose: 100 mg Famotidine (Pepcid) 40 mg PO HS [facility] Last Admin: 08/05/17 22:00 Dose: Not Given Ferrous Sulfate (Feosol) 324 mg PO BID [facility] Last Admin: 08/06/17 09:28 Dose: 324 mg Folic Acid (Folic Acid) 1 mg PO DAILY [facility] Last Admin: 08/06/17 12:17 Dose: 1 mg Thiamine HCl 100 mg/Multivitamins/Vitamin C 10 ml/Folic Acid 1 mg/ Dextrose/ Sodium Chloride 1,011.2 mls @ 100 mls/hr IV .Q10H7M [facility] Last Admin: 08/06/17 07:42 Dose: 100 mls/hr Lorazepam (Ativan) 1 mg IVP Q3H PRN; Protocol PRN Reason: Symptoms of alcohol withdrawl Losartan Potassium (Cozaar) 50 mg PO DAILY [facility] Last Admin: 08/06/17 09:28 Dose: 50 mg Methadone HCl (Methadone) 130 mg PO DAILY [facility] Stop: 08/09/17 08:00 Last Admin: 08/06/17 13:55 Dose: Not Given Metoprolol Succinate (Toprol Xl) 50 mg PO DAILY [facility] Last Admin: 08/06/17 09:27 Dose: 50 mg Morphine Sulfate (Morphine) 1 mg IVP Q4H PRN PRN Reason: Pain, moderate (4-7) Last Admin: 08/02/17 19:36 Dose: 1 mg Ondansetron HCl (Zofran Inj) 4 mg IVP Q4H PRN PRN Reason: Nausea/Vomiting - Labs Labs: 08/06/17 07:50 08/06/17 07:50 Attending/Attestation - Attestation I have personally seen and examined this patient.: Yes I have fully participated in the care of the patient.: Yes I have reviewed all pertinent clinical information, including history, physical exam and plan: Yes Notes (Text): I have seen and examined the patient at bedside. Agree with the above note with the following additions/ exceptions: Briefly this is 51 year old male with history of chronic alcohol induced pancreatitis, Iron deficiency anemia, chronic thrombocytopenia, tobacco use, substance abuse now methadone dependent, chronic aortic dissection s/p repair, HTN, dyslipidemia who was admitted for acute on chronic pancreatitis. GB US done 2 months ago was negative for cholelithiasis. There is no hypertriglyceridemia. Reports that abdominal pain is slightly worse today however denies any nausea or vomiting. Patient is tolerating liquid diet. CT abdomen reviewed. Patient needs to follow up with GI however he states that he does not have GI doctor. Will refer him to [facility] GI clinic upon discharge. Continue IVF, IV analgesics, antiemetics, folic acid, thiamine and MVI. He drinks on regular basis. He is alert and oriented x3. Will continue ativan taper. Patient had AGMA which has resolved. He has transaminitis. Hep panel revealed reactive Hep C.This is a new diagnosis. Will order PCR and GI consult. Will advise patient to follow up in [facility] Hepatology clinic. Upon discharge patient will follow up with Dr Rodrigues. Dr Kevin Gomez
--- NOTE | 2017-08-07 01:45 | CON ---
DATE: 08/06/2017 HISTORY OF PRESENT ILLNESS: I saw Mr. Delgado this afternoon. He is a 51-year-old black male known to consultants with history of chronic pancreatitis. Patient was admitted on 08/02 with complaints of abdominal pain, nausea and vomiting. PAST MEDICAL HISTORY: Polysubstance abuse, hypertension, chronic pancreatitis, aneurysm repair in 2015, pseudocyst drainages. Patient indicated most of his symptoms started after drinking a fifth of erika. Despite the fact he was advised bit of , patient continues to drink even after his endoscopic procedures performed at [facility]. Patient denied hematemesis or rectal bleeding. PHYSICAL EXAMINATION: VITAL SIGNS: I reviewed this patient's vital signs. HEENT: Significant for dry mouth. LUNGS: Decreased breath sounds, basilar. HEART: Regular rhythm. ABDOMEN: Soft, mildly distended, irregular bowel sounds. It is tender in the left upper quadrant. LABORATORY DATA: Reviewed this patient's laboratory data, last CBC 6.3 white cells with an H and H of 11.4 and 33 and platelet count of 87. Note that he has been consistently on the thrombocytopenic side since I know the patient. Review of his complete metabolic indicates AST and ALT ratio of 141/117, bilirubin of 0.4. Note that his lipase on 08/04 was 1071. On admission, his lipase is 1372. Note that his hepatitis serology indicates a reactive hepatitis C antibody. Urine on admission positive for urine opiates and methadone. I reviewed this patient's CT scan relative to one performed during a prior to admission. Current CT indicates again chronic aortic dissection which is stable. There is mild dilatation in the distal area of the pancreatic duct. This is dramatically different from the CT performed in 11/2016, which was significant for a large pseudocyst in the distal body and tail of pancreas, post multiple adjacent pseudocysts. There is also fluid around the pancreas covering the distal body and tail. There was also generalized ascites back down and cyst on the wall of descending colon and stomach. There are bilateral pleural effusions. Note that the CT has dramatically improved relative to his 11/2016 study. ASSESSMENT: This is a 51-year-old black male with history of chronic pancreatitis and polysubstance abuse. Patient was admitted due to recurrent alcohol intake with subsequent development of pancreatitis. Review of the patient's orders indicate that these are adequate at the current time point. No further suggestions other than maintained deep vein thrombosis prophylaxis. PLAN: I had a discussion with the patient at bedside regarding the improvement noted on his most recent CT relative to the prior one and the absolute requirement for stopping alcohol intake. Tr Posada DO
[2017-08-07] MEDS: DEXTROSE IV SCH (05:55)
[2017-08-07] MEDS: NS IV SCH (05:55)
[2017-08-07] MEDS: FOLIC ACID IV SCH (05:55)
[2017-08-07] MEDS: THIAMINE IV SCH (05:55)
[2017-08-07] MEDS: MULTIVITAMIN IV SCH (05:55)
[2017-08-07 07:10] LABS: BASO # 0.02 K/mm3 (0.0-2.0); BASO % 0.4 % (0.0-3.0); EOS # 0.2 (0.0-0.7); EOS % 4.1 % (1.5-5.0); GRAN # 3.19 (1.4-6.5); GRAN % 56.3 % (50.0-68.0); HEMOGLOBIN 10.9 g/dL (14.0-18.0); LYMPH # 1.7 (1.2-3.4); LYMPH % 30.4 % (22.0-35.0); MEAN CELL VOLUME 79.7 fl (80.0-105.0); MEAN CORPUSCULAR HEMOGLOBIN 27.6 pg (25.0-35.0); MEAN CORPUSCULAR HGB CONC 34.6 g/dl (31.0-37.0); MEAN PLATELET VOLUME 10.4 fl (7.0-11.0); MONO # 0.5 (0.1-0.6); MONO % 8.8 % (1.0-6.0); RBC 3.95 10^6/uL (3.5-6.1); RED CELL DISTRIBUTION WIDTH 14.8 % (11.5-14.5); WHITE BLOOD COUNT 5.7 10^3/ul (4.5-11.0)
[2017-08-07 07:41] VITALS: BP 131/88; PULSE 65; RESP 18; TEMP 98.4; O2SAT 96
[2017-08-07 07:42] LABS: ALB/GLOB RATIO 1.1 (1.1-1.8); ALBUMIN 3.2 g/dL (3.0-4.8); ALT/SGPT 96 U/L (7-56); AST/SGOT 79 U/L (17-59); BLOOD UREA NITROGEN 5 mg/dL (7-21); CALCIUM 9.1 mg/dL (8.4-10.5); GFR AFRICAN-AMERICAN > 60; GFR NON-AFRICAN AMERICAN > 60; MAGNESIUM 1.6 mg/dL (1.7-2.2)
[2017-08-07] MEDS ORDERED: Magnesium Sulfate 2 GM in Sodium Chloride 0.9% 100 ML IVPB ONE (07:50)
[2017-08-07] MEDS: Metoprolol Succinate 50 mg XL Tab PO SCH (09:13)
--- NOTE | 2017-08-07 10:09 | PN ---
DATE: 08/07/2017 SUBJECTIVE: I saw Mr. Delgado this morning. He is a 51-year-old black male known to consultants with past medical history of chronic pancreatitis, multi substance abuse, pancreatic duct dilatation associated with multiple pseudocysts in the past. The patient was admitted with exacerbation of pancreatitis due to heavy alcohol intake. I saw the patient at bedside this morning. He indicated residual abdominal pain, burning especially in the left upper quadrant. No hematemesis or rectal bleeding noted. has very small volume of clear liquids. Indicate the pain is still present because of the possibility in increase in allergies. Currently, he is on morphine one every 4 hours with methadone. PHYSICAL EXAMINATION: VITAL SIGNS: I reviewed the patient's vital signs. HEENT: Significant for dry mouth. LUNGS: Decreased breath sounds, basilar. HEART: Irregular rhythm. ABDOMEN: Soft, mildly distended, irregular bowel sounds, tender in the left upper quadrant. LABORATORY DATA: Pending for today. Note that I reviewed the laboratory data yesterday in my consultation. ASSESSMENT AND PLAN: This is a 51-year-old black male admitted with an exacerbation of pancreatitis due to recurrent alcohol intake at high level. Note that there has been improvement in his CT appearance after endoscopic procedures performed at [facility]. Review of orders indicate that they are adequate at the current time point including lorazepam, methadone, morphine, famotidine and Zofran. One might consider possibly increasing dose of morphine up to at least 2 every 3 hours for pain p.r.n. He is currently on liquid diet ordered by Dr. Vigil. IV fluids is still on board at a level of 100 mL per hour. Tr Posada DO
--- NOTE | 2017-08-07 14:32 | CP.PCM.DIS ---
<Masood Daniels - Last Filed: 08/07/17 14:26> Provider - Provider Date of Admission: 08/02/17 07:54 Attending physician: Kevin Gomez MD Primary care physician: NO PRIMARY CARE PROVIDER Consults: GI: Swetha Nephro: Denise Time Spent in preparation of Discharge (in minutes): 45 Hospital Course - Lab Results Lab Results: Most Recent Lab Values WBC 5.7 10^3/ul (4.5-11.0) 08/07/17 06:40 RBC 3.95 10^6/uL (3.5-6.1) 08/07/17 06:40 Hgb 10.9 g/dL (14.0-18.0) L 08/07/17 06:40 Hct 31.5 % (42.0-52.0) L 08/07/17 06:40 MCV 79.7 fl (80.0-105.0) L 08/07/17 06:40 MCH 27.6 pg (25.0-35.0) 08/07/17 06:40 MCHC 34.6 g/dl (31.0-37.0) 08/07/17 06:40 RDW 14.8 % (11.5-14.5) H 08/07/17 06:40 Plt Count 112 10^3/uL (120.0-450.0) L 08/07/17 06:40 MPV 10.4 fl (7.0-11.0) 08/07/17 06:40 Gran % 56.3 % (50.0-68.0) 08/07/17 06:40 Lymph % (Auto) 30.4 % (22.0-35.0) 08/07/17 06:40 [place] % (Auto) 8.8 % (1.0-6.0) H 08/07/17 06:40 Eos % (Auto) 4.1 % (1.5-5.0) 08/07/17 06:40 Baso % (Auto) 0.4 % (0.0-3.0) 08/07/17 06:40 Gran # 3.19 (1.4-6.5) 08/07/17 06:40 Lymph # 1.7 (1.2-3.4) 08/07/17 06:40 [place] # 0.5 (0.1-0.6) 08/07/17 06:40 Eos # 0.2 (0.0-0.7) 08/07/17 06:40 Baso # 0.02 K/mm3 (0.0-2.0) 08/07/17 06:40 pO2 195 mm/Hg (30-55) H 08/02/17 11:00 VBG pH 7.44 (7.32-7.43) H 08/02/17 11:00 VBG pCO2 24.0 (40-60) L 08/02/17 11:00 VBG HCO3 16.3 mmol/l (21-28) L 08/02/17 11:00 VBG Total CO2 17.0 mmol.L (22-28) L 08/02/17 11:00 VBG O2 Sat (Calc) 100.1 % (40-65) H 08/02/17 11:00 VBG Base Excess -6.0 mmol/L (0.0-2.0) L 08/02/17 11:00 VBG Potassium 5.6 mmol/L (3.6-5.2) H 08/02/17 11:00 Sodium 133.0 mmol/L (132-148) 08/02/17 11:00 Chloride 100.0 mmol/L (98-107) 08/02/17 11:00 Glucose 103 mg/dl (75-110) 08/02/17 11:00 Lactate 2.2 mmol/L (0.7-2.1) H 08/02/17 11:00 FiO2 21.0 % 08/02/17 11:00 Sodium 140 mmol/L (132-148) 08/07/17 06:40 Potassium 3.9 mmol/L (3.6-5.0) 08/07/17 06:40 Chloride 104 mmol/L (98-107) 08/07/17 06:40 Carbon Dioxide 28 mmol/L (21-33) 08/07/17 06:40 Anion Gap 12 (10-20) 08/07/17 06:40 BUN 5 mg/dL (7-21) L 08/07/17 06:40 Creatinine 0.6 mg/dl (0.8-1.5) L 08/07/17 06:40 Est GFR ( Amer) > 60 08/07/17 06:40 Est GFR (Non-Af Amer) > 60 08/07/17 06:40 Random Glucose 114 mg/dL (70-110) H 08/07/17 06:40 Serum Osmolality 294 mosm/kg (272-300) 08/02/17 13:30 Calcium 9.1 mg/dL (8.4-10.5) 08/07/17 06:40 Phosphorus 4.2 mg/dL (2.5-4.5) 08/07/17 06:40 Magnesium 1.6 mg/dL (1.7-2.2) L 08/07/17 06:40 Total Bilirubin 0.2 mg/dL (0.2-1.3) 08/07/17 06:40 AST 79 U/L (17-59) H D 08/07/17 06:40 ALT 96 U/L (7-56) H 08/07/17 06:40 Alkaline Phosphatase 63 U/L (38-126) 08/07/17 06:40 Troponin I < 0.01 ng/mL D 08/04/17 19:20 Total Protein 6.1 g/dL (5.8-8.3) 08/07/17 06:40 Albumin 3.2 g/dL (3.0-4.8) 08/07/17 06:40 Globulin 2.9 gm/dL 08/07/17 06:40 Albumin/Globulin Ratio 1.1 (1.1-1.8) 08/07/17 06:40 Triglycerides 136 mg/dL (35-160) 08/03/17 08:31 Cholesterol 169 mg/dL (130-200) 08/03/17 08:31 LDL Cholesterol Direct 63 mg/dL (0-129) 08/03/17 08:31 HDL Cholesterol 70 mg/dL (29-60) H 08/03/17 08:31 Lipase 1071 U/L (23-300) H 08/04/17 07:00 Venous Blood Potassium 5.6 mmol/L (3.6-5.2) H 08/02/17 11:00 Urine Color Yellow (YELLOW) 08/02/17 20:00 Urine Appearance Clear (CLEAR) 08/02/17 20:00 Urine pH 6.0 (4.7-8.0) 08/02/17 20:00 Ur Specific [place] 1.025 (1.005-1.035) 08/02/17 20:00 Urine Protein Trace mg/dL (<30 mg/dL) H 08/02/17 20:00 Urine Glucose (UA) Negative mg/dL (NEGATIVE) 08/02/17 20:00 Urine Ketones 40 mg/dL (NEGATIVE) H 08/02/17 20:00 Urine Blood Negative (NEGATIVE) 08/02/17 20:00 Urine Nitrate Negative (NEGATIVE) 08/02/17 20:00 Urine Bilirubin Small (NEGATIVE) H 08/02/17 20:00 Urine Urobilinogen 0.2 E.U./dL (<1 E.U./dL) 08/02/17 20:00 Ur Leukocyte Esterase Negative Singh/uL (NEGATIVE) 08/02/17 20:00 Urine RBC Negative /hpf (0-2) 08/02/17 20:00 Urine WBC 1 - 3 /hpf (0-6) 08/02/17 20:00 Ur Epithelial Cells 1 - 3 /hpf (0-5) 08/02/17 20:00 Urine Bacteria Few (NEG) 08/02/17 20:00 Urine Opiates Screen Positive (NEGATIVE) H 08/02/17 12:20 Urine Methadone Screen Positive (NEGATIVE) H 08/02/17 12:20 Ur Barbiturates Screen Negative (NEGATIVE) 08/02/17 12:20 Ur Phencyclidine Scrn Negative (NEGATIVE) 08/02/17 12:20 Ur Amphetamines Screen Negative (NEGATIVE) 08/02/17 12:20 U Benzodiazepines Scrn Negative (NEGATIVE) 08/02/17 12:20 U Oth Cocaine Metabols Negative (NEGATIVE) 08/02/17 12:20 U Cannabinoids Screen Negative (NEGATIVE) 08/02/17 12:20 Alcohol, Quantitative < 10 mg/dL (0-10) 08/02/17 05:10 Hepatitis A IgM Ab Negative (NEGATIVE) 08/04/17 07:00 Hep Bs Antigen Negative (NEGATIVE) 08/04/17 07:00 Hep B Core IgM Ab Negative (NEGATIVE) 08/04/17 07:00 Hepatitis C Antibody Reactive (NEGATIVE) 08/04/17 07:00 - Hospital Course Hospital Course: 51 AA M with a PMHx of polysubstance abuse, HTN, HLD, and chronic pancreatitis presented to the [facility] ED with complaints of abdominal pain and nausea and vomiting. Pt stated that his symptoms began yesterday and have progressively worsened prompting him to seek medical attention. Pt stated that his symptoms began after he finished drinking a fifth of erika. He has had similar episodes of abdominal pain in the past, most recently being 6 months ago. The pain is most significant in his LUQ with an intensity of an 8/10 and radiates diffusely throughout his abdomen and is sharp in nature. He admitted to nausea and vomiting, his most recent episode of non bloody non bilious emesis was early the morning of admission. Pt was found to have an elevated lipase in the ED. Pt was admitted for alcohol withdrawal and acute on chronic pancreatitis. During hospital course, EtOH withdrawal was treated with banana bag and tapering doses of ativan, which patient tolerated well. GI was consulted, recommendations were appreciated. CT abd/pelv showed stable chronic aortic dissection, dilatation of pancreatic duct in tail of pancreas. Patient was managed conservatively with IVF , pain control, and bowel rest. Nephrology was consulted due to anion gap metabolic acidosis, recommendations were appreciated. Pt was also found to have elevated LFT's. Hep panel was obtained and revealed reactive Hep C antibody. Pt' s comorbidities were managed. Electrolytes were monitored and repleted as needed. Pt had h/o heroin abuse and was treated daily with Methadone, confirmed dosage from [facility]. Today, patient was seen and examined at bedside. As patient's abdominal pain had improved, tolerating diet, and ambulating without assistance, he was discharged. Pt was advised to follow with [facility] hepatology clinic due to hepatitis c findings. Pt was given PO medications on discharge. He will follow up as an outpatient. Pt was counseled on the risks of EtOH use and abuse and advised cessation. Discharge Diagnosis 1. Acute on Chronic Pancreatitis 2. High anion gap Metabolic Acidosis, closed 3. ETOH Abuse 4. Substance abuse, heroin 5. Anemia 6. Hepatitis C 7. Thrombocytopenia 8. Hx HTN Discharge Medications - Colace 100 mg PO BID - Ferrous Sulfate 324 PO BID - Folate 1 mg tab daily - Thiamine 100 mg tab daily - Multivitamin 1 tab daily - Cont home medications as per MAR Discharge Exam - Head Exam Head Exam: NORMAL INSPECTION - Eye Exam Eye Exam: Normal appearance - ENT Exam ENT Exam: Normal Exam - Neck Exam Neck exam: Normal Inspection - Respiratory Exam Respiratory Exam: Clear to PA & Lateral. absent: Accessory Muscle Use, Rales, Rhonchi, Wheezes, Respiratory Distress - Cardiovascular Exam Cardiovascular Exam: RRR, +S1, +S2. absent: Diastolic murmur, Gallop, Rubs, Systolic Murmur - GI/Abdominal Exam GI & Abdominal Exam: Soft, Tenderness (improved). absent: Distended, Guarding, Rebound - Extremities Exam Extremities exam: normal inspection - Neurological Exam Neurological exam: Alert, Oriented x3 - Psychiatric Exam Psychiatric exam: Normal Affect, Normal Mood - Skin Skin Exam: Dry, Intact, Normal Color, Warm Discharge Plan - Discharge Medications Prescriptions: Docusate [Colace] 100 mg PO BID #30 cap Ferrous Sulfate [Feosol] 324 mg PO BID #30 ect Folic Acid 1 mg PO DAILY #15 tab Multivitamin [Daily Value] 1 each PO DAILY #15 tablet Thiamine [Vitamin B-1] 100 mg PO DAILY #15 tab - Follow Up Plan Condition: FAIR Disposition: HOME/ ROUTINE Instructions: Pancreatitis (DC), Iron Rich Diet (DC), Iron Deficiency Anemia ( DC), Hepatitis C (DC), Acute Abdominal Pain (DC), Acute Abdominal Pain (GEN), Alcohol Use Disorder (DC) Additional Instructions: 1. Follow up with [facility] Hepatology clinic due to positive Hepatitis C lab 2. Follow up with PMD within 1 week 3. Take new medications as prescribed 4. Resume home medications as prescribed 5. Return to ED if symptoms worsen Referrals: PCP,[place] [Primary Care Provider] - Tr Posada DO [Staff Provider] - <Kevin Gomez - Last Filed: 08/07/17 16:00> Provider - Provider Date of Admission: 08/02/17 07:54 Attending physician: Kevin Gomez MD Primary care physician: [place] PRIMARY CARE PROVIDER Hospital Course - Lab Results Lab Results: Most Recent Lab Values WBC 5.7 10^3/ul (4.5-11.0) 08/07/17 06:40 RBC 3.95 10^6/uL (3.5-6.1) 08/07/17 06:40 Hgb 10.9 g/dL (14.0-18.0) L 08/07/17 06:40 Hct 31.5 % (42.0-52.0) L 08/07/17 06:40 MCV 79.7 fl (80.0-105.0) L 08/07/17 06:40 MCH 27.6 pg (25.0-35.0) 08/07/17 06:40 MCHC 34.6 g/dl (31.0-37.0) 08/07/17 06:40 RDW 14.8 % (11.5-14.5) H 08/07/17 06:40 Plt Count 112 10^3/uL (120.0-450.0) L 08/07/17 06:40 MPV 10.4 fl (7.0-11.0) 08/07/17 06:40 Gran % 56.3 % (50.0-68.0) 08/07/17 06:40 Lymph % (Auto) 30.4 % (22.0-35.0) 08/07/17 06:40 [place] % (Auto) 8.8 % (1.0-6.0) H 08/07/17 06:40 Eos % (Auto) 4.1 % (1.5-5.0) 08/07/17 06:40 Baso % (Auto) 0.4 % (0.0-3.0) 08/07/17 06:40 Gran # 3.19 (1.4-6.5) 08/07/17 06:40 Lymph # 1.7 (1.2-3.4) 08/07/17 06:40 [place] # 0.5 (0.1-0.6) 08/07/17 06:40 Eos # 0.2 (0.0-0.7) 08/07/17 06:40 Baso # 0.02 K/mm3 (0.0-2.0) 08/07/17 06:40 pO2 195 mm/Hg (30-55) H 08/02/17 11:00 VBG pH 7.44 (7.32-7.43) H 08/02/17 11:00 VBG pCO2 24.0 (40-60) L 08/02/17 11:00 VBG HCO3 16.3 mmol/l (21-28) L 08/02/17 11:00 VBG Total CO2 17.0 mmol.L (22-28) L 08/02/17 11:00 VBG O2 Sat (Calc) 100.1 % (40-65) H 08/02/17 11:00 VBG Base Excess -6.0 mmol/L (0.0-2.0) L 08/02/17 11:00 VBG Potassium 5.6 mmol/L (3.6-5.2) H 08/02/17 11:00 Sodium 133.0 mmol/L (132-148) 08/02/17 11:00 Chloride 100.0 mmol/L (98-107) 08/02/17 11:00 Glucose 103 mg/dl (75-110) 08/02/17 11:00 Lactate 2.2 mmol/L (0.7-2.1) H 08/02/17 11:00 FiO2 21.0 % 08/02/17 11:00 Sodium 140 mmol/L (132-148) 08/07/17 06:40 Potassium 3.9 mmol/L (3.6-5.0) 08/07/17 06:40 Chloride 104 mmol/L (98-107) 08/07/17 06:40 Carbon Dioxide 28 mmol/L (21-33) 08/07/17 06:40 Anion Gap 12 (10-20) 08/07/17 06:40 BUN 5 mg/dL (7-21) L 08/07/17 06:40 Creatinine 0.6 mg/dl (0.8-1.5) L 08/07/17 06:40 Est GFR ( Amer) > 60 08/07/17 06:40 Est GFR (Non-Af Amer) > 60 08/07/17 06:40 Random Glucose 114 mg/dL (70-110) H 08/07/17 06:40 Serum Osmolality 294 mosm/kg (272-300) 08/02/17 13:30 Calcium 9.1 mg/dL (8.4-10.5) 08/07/17 06:40 Phosphorus 4.2 mg/dL (2.5-4.5) 08/07/17 06:40 Magnesium 1.6 mg/dL (1.7-2.2) L 08/07/17 06:40 Total Bilirubin 0.2 mg/dL (0.2-1.3) 08/07/17 06:40 AST 79 U/L (17-59) H D 08/07/17 06:40 ALT 96 U/L (7-56) H 08/07/17 06:40 Alkaline Phosphatase 63 U/L (38-126) 08/07/17 06:40 Troponin I < 0.01 ng/mL D 08/04/17 19:20 Total Protein 6.1 g/dL (5.8-8.3) 08/07/17 06:40 Albumin 3.2 g/dL (3.0-4.8) 08/07/17 06:40 Globulin 2.9 gm/dL 08/07/17 06:40 Albumin/Globulin Ratio 1.1 (1.1-1.8) 08/07/17 06:40 Triglycerides 136 mg/dL (35-160) 08/03/17 08:31 Cholesterol 169 mg/dL (130-200) 08/03/17 08:31 LDL Cholesterol Direct 63 mg/dL (0-129) 08/03/17 08:31 HDL Cholesterol 70 mg/dL (29-60) H 08/03/17 08:31 Lipase 1071 U/L (23-300) H 08/04/17 07:00 Venous Blood Potassium 5.6 mmol/L (3.6-5.2) H 08/02/17 11:00 Urine Color Yellow (YELLOW) 08/02/17 20:00 Urine Appearance Clear (CLEAR) 08/02/17 20:00 Urine pH 6.0 (4.7-8.0) 08/02/17 20:00 Ur Specific [place] 1.025 (1.005-1.035) 08/02/17 20:00 Urine Protein Trace mg/dL (<30 mg/dL) H 08/02/17 20:00 Urine Glucose (UA) Negative mg/dL (NEGATIVE) 08/02/17 20:00 Urine Ketones 40 mg/dL (NEGATIVE) H 08/02/17 20:00 Urine Blood Negative (NEGATIVE) 08/02/17 20:00 Urine Nitrate Negative (NEGATIVE) 08/02/17 20:00 Urine Bilirubin Small (NEGATIVE) H 08/02/17 20:00 Urine Urobilinogen 0.2 E.U./dL (<1 E.U./dL) 08/02/17 20:00 Ur Leukocyte Esterase Negative Singh/uL (NEGATIVE) 08/02/17 20:00 Urine RBC Negative /hpf (0-2) 08/02/17 20:00 Urine WBC 1 - 3 /hpf (0-6) 08/02/17 20:00 Ur Epithelial Cells 1 - 3 /hpf (0-5) 08/02/17 20:00 Urine Bacteria Few (NEG) 08/02/17 20:00 Urine Opiates Screen Positive (NEGATIVE) H 08/02/17 12:20 Urine Methadone Screen Positive (NEGATIVE) H 08/02/17 12:20 Ur Barbiturates Screen Negative (NEGATIVE) 08/02/17 12:20 Ur Phencyclidine Scrn Negative (NEGATIVE) 08/02/17 12:20 Ur Amphetamines Screen Negative (NEGATIVE) 08/02/17 12:20 U Benzodiazepines Scrn Negative (NEGATIVE) 08/02/17 12:20 U Oth Cocaine Metabols Negative (NEGATIVE) 08/02/17 12:20 U Cannabinoids Screen Negative (NEGATIVE) 08/02/17 12:20 Alcohol, Quantitative < 10 mg/dL (0-10) 08/02/17 05:10 Hepatitis A IgM Ab Negative (NEGATIVE) 08/04/17 07:00 Hep Bs Antigen Negative (NEGATIVE) 08/04/17 07:00 Hep B Core IgM Ab Negative (NEGATIVE) 08/04/17 07:00 Hepatitis C Antibody Reactive (NEGATIVE) 08/04/17 07:00 Attending/Attestation - Attestation I have personally seen and examined this patient.: Yes I have fully participated in the care of the patient.: Yes I have reviewed all pertinent clinical information, including history, physical exam and plan: Yes Notes (Text): I have seen and examined the patient at bedside. Agree with the above note with the following additions/ exceptions: Briefly this is 51 year old male with history of chronic alcohol induced pancreatitis, Iron deficiency anemia, chronic thrombocytopenia, tobacco use, substance abuse now methadone dependent, chronic aortic dissection s/p repair, HTN, dyslipidemia who was admitted for acute on chronic pancreatitis. GB US done 2 months ago was negative for cholelithiasis. There is no hypertriglyceridemia. Reports that abdominal pain is better today and denies any nausea or vomiting. Patient is tolerating diet without any problem. CT abdomen reviewed. Patient needs to follow up with GI however he states that he does not have GI doctor. Continue folic acid, thiamine and MVI. He drinks on regular basis. Counselling provided regarding that. He is alert and oriented x3. Patient was given ativan taper. Patient had AGMA which has resolved. He has transaminitis. Hep panel revealed reactive Hep C. This is a new diagnosis. HCV PCR pending. GI consult appreciated. Will advise patient to follow up in [facility] Hepatology clinic. Upon discharge patient will follow up with Dr Rodrigues. Dr Kevin Gomez
[2017-08-08 15:17] LABS: HEPATITIS C ANTIBODY NEGATIVE (NEGATIVE)
== END 2017-08-07 15:50 | disposition home or self-care (01) | DRG 204 ==
LOC: ED 04:41 → ERH 07:54 → 5RNO 09:33
PROVIDERS: ADMIT Hospitalist; ATTEND Hospitalist
DX: K85.90 Acute pancreatitis without necrosis or infection, unspecified (principal); D69.59 Other secondary thrombocytopenia; E87.2 Acidosis; E83.39 Other disorders of phosphorus metabolism; E83.42 Hypomagnesemia; F11.10 Opioid abuse, uncomplicated; E87.1 Hypo-osmolality and hyponatremia; B19.20 Unspecified viral hepatitis C without hepatic coma; F10.239 Alcohol dependence with withdrawal, unspecified; E87.6 Hypokalemia; K86.1 Other chronic pancreatitis; D50.9 Iron deficiency anemia, unspecified; E78.5 Hyperlipidemia, unspecified; I10 Essential (primary) hypertension; F17.210 Nicotine dependence, cigarettes, uncomplicated; K76.0 Fatty (change of) liver, not elsewhere classified; Z79.82 Long term (current) use of aspirin; Z79.899 Other long term (current) drug therapy

== ENCOUNTER 2017-10-13 06:01 | Inpatient (IN) | payer OTHER ==
[2017-10-13 06:02] VITALS: BMI 20.3
--- NOTE | 2017-10-13 06:26 | ED PDOC ---
Arrival/HPI - General Chief Complaint: Chest Pain Time Seen by Provider: 10/13/17 06:11 - History of Present Illness Narrative History of Present Illness (Text): 10/13/17 06:19 Patient to ED BIBA PMHX HTN,Aortic dissection repair,Anemia,Pancreatitis, polysubstance abuse,methadone dependent with c/o intermittent chest pain, abdominal pain,vomiting,occassional cough,sob,past 3 days.No fever or chills.No back pain.No urinary complaints. Past Medical History - Provider Review Nursing Documentation Reviewed: Yes - Infectious Disease Hx of Infectious Diseases: None - Tetanus Immunization Tetanus Immunization: Unknown - Cardiac Hx Cardiac Disorders: Yes Hx Heart Murmur: Yes Hx Hypertension: Yes Other/Comment: aortic dissected repair/aaa 2014 - Pulmonary Hx Respiratory Disorders: Yes (SMOKES 1 PPD X 30 YRS) Hx Tuberculosis: No - Neurological Hx Neurological Disorder: No HX Cerebrovascular Accident: No Hx Seizures: No - HEENT Hx HEENT Disorder: No - Renal Hx Renal Disorder: No - Endocrine/Metabolic Hx Endocrine Disorders: No - Hematological/Oncological Hx Blood Disorders: Yes Hx Anemia: Yes Hx Cancer: No - Integumentary Hx Dermatological Disorder: No Other/Comment: 08-02-17 "BLACK EYE" FROM FALL.MISSED A STEP . - Musculoskeletal/Rheumatological Hx Musculoskeletal Disorders: Yes Hx Arthritis: Yes (knees and lower back) Hx Back Pain: Yes Hx Falls: Yes Hx Unsteady Gait: No - Gastrointestinal Hx Gastrointestinal Disorders: Yes Hx Pancreatitis: Yes - Genitourinary/Gynecological Hx Genitourinary Disorders: No Hx Sexually Transmitted Diseases: No - Psychiatric Hx Psychophysiologic Disorder: Yes (H/O HEROINE ABUSE,SNORTED) Hx Substance Use: Yes (130 MG METH. HAS 3 BOTTLES. 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 HAS 3 BOTTLES. HEROINE ABUSE H/O SNORTED) Substance used: heroin Hx Substance Use Treatment: Yes Allergies/Home Meds Allergies/Adverse Reactions: Allergies No Known Allergies Allergy (Verified 10/13/17 06:16) Home Medications: Home Meds Medication Instructions Recorded Confirmed Methadone 130 mg PO DAILY 05/18/17 10/13/17 Aspirin [Ecotrin] 81 mg PO DAILY 05/19/17 10/13/17 Atorvastatin [Lipitor] 40 mg PO DAILY 05/19/17 10/13/17 Famotidine [Pepcid] 20 mg PO DAILY 05/19/17 10/13/17 Metoprolol Succinate [Toprol XL] 25 mg PO DAILY 05/19/17 10/13/17 Ferrous Sulfate [Feosol] 325 mg PO DAILY 08/02/17 10/13/17 Review of Systems - Review of Systems Constitutional: Fatigue Eyes: Normal ENT: Normal Respiratory: SOB, Cough Cardiovascular: Chest Pain Gastrointestinal: Abdominal Pain Genitourinary Male: Normal Musculoskeletal: Normal Skin: Normal Neurological: Normal Endocrine: Normal Hemo/Lymphatic: Normal Psychiatric: Normal Physical Exam Vital Signs Temp Pulse Resp BP Pulse Ox 10/13/17 06:16 98.2 F 101 H 18 143/84 99 Temperature: Afebrile Blood Pressure: Normal Pulse: Regular Respiratory Rate: Normal Appearance: Positive for: Non-Toxic, Comfortable, Ill-Appearing Pain Distress: None Mental Status: Positive for: Alert and Oriented X 3 - Systems Exam Head: Present: Atraumatic, Normocephalic Pupils: Present: PERRL Extroacular Muscles: Present: EOMI Conjunctiva: Present: Normal Ears: Present: NORMAL TM Mouth: Present: Moist Mucous Membranes Pharnyx: Present: Normal Neck: Present: Normal Range of Motion Respiratory/Chest: Present: Clear to Auscultation, Good Air Exchange. No: Respiratory Distress, Accessory Muscle Use Cardiovascular: Present: Regular Rate and Rhythm, Normal S1, S2. No: Murmurs Abdomen: Present: Tenderness (upper abdominal), Normal Bowel Sounds. No: Distention, Peritoneal Signs Back: Present: Normal Inspection. No: CVA Tenderness Upper Extremity: Present: Normal Inspection. No: Cyanosis, Edema Lower Extremity: Present: Normal Inspection. No: Edema Neurological: Present: GCS=15, CN II-XII Intact, Speech Normal, Motor Func Grossly Intact, Normal Sensory Function Skin: Present: Warm, Dry, Normal Color. No: Rashes Psychiatric: Present: Alert, Oriented x 3, Normal Insight, Normal Concentration Medical Decision Making ED Course and Treatment: 10/13/17 07:00 Case endorsed to /pending labs/further evaluation as needed/reassess/ final disposition - RAD Interpretation Radiology Orders: 10/13/17 06:31 CHEST PORTABLE [RAD] Stat Disposition/Present on Arrival - Present on Arrival Any Indicators Present on Arrival: No History of DVT/PE: No History of Uncontrolled Diabetes: No Urinary Catheter: No History Surgical Site Infection Following: None - Disposition Have Diagnosis and Disposition been Completed?: No Diagnosis: Chest pain, Abdominal pain Disposition Time: 07:00 Condition: STABLE Discharge Instructions (ExitCare): Chest Pain (ED) Forms: [employer] ([place])
[2017-10-13] MEDS ORDERED: Sodium Chloride 0.9% 1,000 ML IV SCH ×2 (06:45→10:30)
[2017-10-13 07:22] LABS: INR 0.95 (0.93-1.08); PARTIAL THROMBOPLASTIN TIME 22.5 Seconds (25.1-36.5); PROTHROMBIN TIME 10.9 SECONDS (9.4-12.5)
[2017-10-13 07:25] LABS: HEMOGLOBIN 14.1 g/dL (14.0-18.0); MEAN CELL VOLUME 79.6 fl (80.0-105.0); MEAN CORPUSCULAR HEMOGLOBIN 28.1 pg (25.0-35.0); MEAN CORPUSCULAR HGB CONC 35.3 g/dl (31.0-37.0); MEAN PLATELET VOLUME 11.3 fl (7.0-11.0); RBC 5.01 10^6/uL (3.5-6.1); WHITE BLOOD COUNT 6.8 10^3/ul (4.5-11.0)
--- NOTE | 2017-10-13 07:29 | ED PDOC ---
Physical Exam Vital Signs Reviewed: Yes Vital Signs Temp Pulse Resp BP Pulse Ox 10/13/17 09:36 90 18 138/83 98 10/13/17 07:30 97 H 18 142/88 96 10/13/17 06:16 98.2 F 101 H 18 143/84 99 Temperature: Afebrile Blood Pressure: Normal Pulse: Tachycardic Respiratory Rate: Normal Appearance: Positive for: Well-Appearing, Non-Toxic, Comfortable Pain Distress: Mild Mental Status: Positive for: Alert and Oriented X 3 - Systems Exam Abdomen: Present: Tenderness (epigastric region ), Normal Bowel Sounds, Guarding. No: Distention, Peritoneal Signs, Rebound Medical Decision Making ED Course and Treatment: 10/13/17 07:00 Case signed out to me by Dr. Guerra. Patient is a 51 year old male who presents to the emergency department complaining of intermittent chest pain, abdominal pain associated with vomiting and occasional cough since 3 days. Currently pending labs and Chest X-ray. 10/13/17 08:30 Patient is currently complaining of abdominal epigastric pain that radiates to chest, associated with nausea and states it feels similar to prior history of pancreatitis. On physical exam abdomen is tender on epigastric region with guarding and no rebound. Pain medication was ordered and CT abdomen and pelvis exam. 10/13/17 09:58 CT ABD/PELVIS Accession No. : [id number] IMPRESSION: Chronic aortic dissection stable in appearance.Dilatation of the pancreatic duct in the tail of the pancreas unchanged.No acute intra-abdominal findings Severe grade 2 anterolisthesis at L5-S1 with productive changes anteriorly. Case discussed with Dr. Orlando who will admit the patient to his service. - Lab Interpretations Lab Results: 10/13/17 06:52 10/13/17 08:00 Lab Results 10/13/17 08:00: Sodium 140, Potassium 5.1 H, Chloride 96 L, Carbon Dioxide 14 L , Anion Gap 34 H, BUN 34 H, Creatinine 1.1, Est GFR ( Amer) > 60, Est GFR (Non-Af Amer) > 60, Random Glucose 105, Calcium 9.6, Total Bilirubin 1.1, AST 341 H D, ALT 222 H, Alkaline Phosphatase 100, Lactate Dehydrogenase 705 H, Total Creatine Kinase 114, Troponin I 0.02 D, Total Protein 8.0, Albumin 4.8, Globulin 3.2, Albumin/Globulin Ratio 1.5, Lipase 2152 H 10/13/17 07:35: Urine Color Yellow, Urine Appearance Clear, Urine pH 6.0, Ur Specific Wood >= 1.030, Urine Protein 100 H, Urine Glucose (UA) Negative, Urine Ketones 40 H, Urine Blood Trace-intact H, Urine Nitrate Negative, Urine Bilirubin Small H, Urine Urobilinogen 0.2, Ur Leukocyte Esterase Negative, Urine RBC 2 - 5, Urine WBC 0 - 2, Ur Epithelial Cells None, Amorphous Sediment Few, Urine Bacteria Mod, Hyaline Casts 0 - 2, Fine Granular Casts 0 - 2 10/13/17 07:03: Alcohol, Quantitative 170 H 10/13/17 07:03: PT 10.9, INR 0.95, APTT 22.5 L 10/13/17 06:52: WBC 6.8, RBC 5.01, Hgb 14.1 D, Hct 39.9 L, MCV 79.6 L, MCH 28.1 , MCHC 35.3, RDW 17.0 H, Plt Count 87 L, MPV 11.3 H - RAD Interpretation Radiology Orders: 10/13/17 06:31 CHEST PORTABLE [RAD] Stat 10/13/17 08:33 ABD & PELVIS IV CONTRAST ONLY [CT] Stat - Medication Orders Current Medication Orders: Sodium Chloride (Sodium Chloride 0.9%) 1,000 mls @ 100 mls/hr IV .Q10H [facility] Last Admin: 10/13/17 06:50 Dose: 100 mls/hr eMAR Start Stop Document 10/13/17 06:50 RD (Rec: 10/13/17 06:55 RD [id number]) Intravenous Solution Start Date 10/13/17 Start Time 06:50 Sodium Chloride (Sodium Chloride 0.9%) 1,000 mls @ 100 mls/hr IV .Q10H STA Stop: 10/13/17 19:27 Ondansetron HCl (Zofran Inj) 4 mg IVP Q4H PRN PRN Reason: Nausea/Vomiting Discontinued Medications Famotidine (Pepcid) 20 mg IVP STAT STA Stop: 10/13/17 06:43 Last Admin: 10/13/17 06:53 Dose: 20 mg IVP Administration Document 10/13/17 06:53 RD (Rec: 10/13/17 06:55 RD [id number]) Charges for Administration # of IVP Administrations 1 Sodium Chloride (Sodium Chloride 0.9%) 1,000 mls @ 999 mls/hr IV .Q1H1M STA Stop: 10/13/17 09:33 Last Admin: 10/13/17 08:47 Dose: 999 mls/hr eMAR Start Stop Document 10/13/17 08:47 L[facility] (Rec: 10/13/17 08:47 [facility] [id number]) Intravenous Solution Start Date 10/13/17 Start Time 08:47 End Date 10/13/17 End time 09:50 Total Infusion Time 63 Ketorolac Tromethamine (Toradol) 30 mg IVP ONCE ONE Stop: 10/13/17 06:43 Last Admin: 10/13/17 06:56 Dose: 30 mg MAR Pain Assessment Document 10/13/17 06:56 RD (Rec: 10/13/17 06:56 RD [id number]) Pain Reassessment Is this a pain reassessment? No Sleep Is patient sleeping during reassessment? No Presence of Pain Presence of Pain Yes Location Pain Location Body Site Chest Description Description Intermittent IVP Administration Document 10/13/17 06:56 RD (Rec: 10/13/17 06:56 RD [id number]) Charges for Administration # of IVP Administrations 1 Morphine Sulfate (Morphine) 4 mg IVP STAT STA Stop: 10/13/17 08:34 Last Admin: 10/13/17 08:45 Dose: 4 mg MAR Pain Assessment Document 10/13/17 08:45 [facility] (Rec: 10/13/17 08:46 L[facility] [id number]) Pain Reassessment Is this a pain reassessment? No Sleep Is patient sleeping during reassessment? No Presence of Pain Presence of Pain Yes Pain Scale Used Pain Scale Used Numeric Location Left, Right or Bilateral Left Pain Location Body Site Chest Description Description Intermittent Intensity of Pain at present 8 IVP Administration Document 10/13/17 08:45 L[facility] (Rec: 10/13/17 08:46 [facility] [id number]) Charges for Administration # of IVP Administrations 1 Ondansetron HCl (Zofran Inj) 4 mg IVP ONCE ONE Stop: 10/13/17 06:43 Last Admin: 10/13/17 06:50 Dose: 4 mg IVP Administration Document 10/13/17 06:50 RD (Rec: 10/13/17 06:55 RD [id number]) Charges for Administration # of IVP Administrations 1 Thiamine HCl (Vitamin B1 Inj) 100 mg IM STAT STA Stop: 10/13/17 09:46 - Scribe Statement The provider has reviewed the documentation as recorded by the Scribe Marcie Gonzalez Provider Scribe Attestation: All medical record entries made by the Scribe were at my direction and personally dictated by me. I have reviewed the chart and agree that the record accurately reflects my personal performance of the history, physical exam, medical decision making, and the department course for this patient. I have also personally directed, reviewed, and agree with the discharge instructions and disposition. Disposition/Present on Arrival - Present on Arrival Any Indicators Present on Arrival: No History of DVT/PE: No History of Uncontrolled Diabetes: No Urinary Catheter: No History of Decub. Ulcer: No History Surgical Site Infection Following: None - Disposition Have Diagnosis and Disposition been Completed?: Yes Diagnosis: Chest pain, Abdominal pain Disposition: HOSPITALIZED Disposition Time: 08:48 Patient Plan: Admission Patient Problems: Current Active Problems Problem Status Onset Chest pain Acute Abdominal pain Acute Condition: FAIR
[2017-10-13 07:54] LABS: URINE APPEARANCE CLEAR (CLEAR); URINE BILIRUBIN SMALL (NEGATIVE); URINE BLOOD TRACE-INTACT (NEGATIVE); URINE COLOR YELLOW (YELLOW); URINE GLUCOSE (UA) NEGATIVE (NEGATIVE); URINE LEUKOCYTE ESTERASE NEGATIVE Leu/uL (NEGATIVE); URINE PROTEIN 100 mg/dL (<30 mg/dL); URINE UROBILINOGEN 0.2 E.U./dL (<1 E.U./dL)
[2017-10-13 08:29] LABS: URINE WBC 0 - 2 /hpf (0-6)
[2017-10-13 08:30] LABS: URINE BACTERIA MOD (NEG); URINE HYALINE CAST 0 - 2 /hpf
[2017-10-13 08:31] LABS: URINE AMORPHOUS SEDIMENT FEW; URINE FINE GRANULAR CAST 0 - 2 /hpf (0-2)
[2017-10-13 08:31] LABS: ALB/GLOB RATIO 1.5 (1.1-1.8); ALBUMIN 4.8 g/dL (3.0-4.8); ALT/SGPT 222 U/L (7-56); AST/SGOT 341 U/L (17-59); BLOOD UREA NITROGEN 34 mg/dL (7-21); CALCIUM 9.6 mg/dL (8.4-10.5); GFR AFRICAN-AMERICAN > 60; GFR NON-AFRICAN AMERICAN > 60
[2017-10-13] MEDS ORDERED: Sodium Chloride 0.9% 1,000 ML IV STA ×2 (08:33→09:28)
[2017-10-13] MEDS ORDERED: Morphine 4 mg/ml ISec IVP STA (08:33)
[2017-10-13] MEDS ORDERED: Iohexol 350 MG/100 ML VIAL ONE (08:36)
[2017-10-13 08:38] LABS: LIPASE 2152 U/L (23-300)
[2017-10-13 08:42] LABS: TROPONIN I 0.02 ng/mL
--- NOTE | 2017-10-13 09:28 | CT ---
PROCEDURE: CT Abdomen and Pelvis with contrast HISTORY: abd pain COMPARISON: 08/04/2017. TECHNIQUE: Contrast dose: Radiation dose: Total exam DLP = mGy-cm. This CT exam was performed using one or more of the following dose reduction techniques: Automated exposure control, adjustment of the mA and/or kV according to patient size, and/or use of iterative reconstruction technique. FINDINGS: LOWER THORAX: Unremarkable. LIVER: Unremarkable. No gross lesion or ductal dilatation. GALLBLADDER AND BILE DUCTS: Unremarkable. PANCREAS: There is dilatation of the pancreatic duct in the tail of the pancreas. This is unchanged. There is no evidence of acute pancreatitis. SPLEEN: Unremarkable. ADRENALS: Unremarkable. No mass. KIDNEYS AND URETERS: Unremarkable. No hydronephrosis. No solid mass. VASCULATURE: Chronic aortic dissection that is stable in appearance. BOWEL: Unremarkable. No obstruction. No gross mural thickening. APPENDIX: Normal appendix. PERITONEUM: Unremarkable. No free fluid. No free air. LYMPH NODES: Unremarkable. No enlarged lymph nodes. BLADDER: Unremarkable. REPRODUCTIVE: Unremarkable. BONES: Severe grade 2 anterolisthesis at L5-S1 with productive changes anteriorly. OTHER FINDINGS: None. IMPRESSION: Chronic aortic dissection stable in appearance.Dilatation of the pancreatic duct in the tail of the pancreas unchanged.No acute intra-abdominal findings Severe grade 2 anterolisthesis at L5-S1 with productive changes anteriorly.
[2017-10-13] MEDS ORDERED: Thiamine 100 mg/ml Inj IM STA (09:45)
[2017-10-13 10:14] LABS: LDL CHOLESTEROL 69 mg/dL (0-129)
[2017-10-13 10:20] LABS: HDL CHOLESTEROL 120 mg/dL (29-60)
[2017-10-13 10:28] LABS: ARTERIAL BLOOD GAS HCO3 12.7 mmol/L (21-28); ARTERIAL BLOOD GAS O2 SAT 98.1 % (95-98); ARTERIAL BLOOD GAS PCO2 23 mm/Hg (35-45); ARTERIAL BLOOD GAS PH 7.35 (7.35-7.45); ARTERIAL BLOOD GAS TCO2 13.4 mmol.L (22-28)
[2017-10-13] MEDS ORDERED: Morphine 2 mg/ml ISec IVP STA (10:47)
[2017-10-13] MEDS ORDERED: Morphine 4 mg/ml ISec IVP PRN (10:48)
[2017-10-13] MEDS ORDERED: Influenza Vaccine 60 mcg/0.5 mL SYR (4YR UP) IM ONE (13:29)
[2017-10-13] MEDS ORDERED: Pneumococcal 23-Valent Vaccine IM ONE (13:29)
[2017-10-13] MEDS ORDERED: Metoprolol 1 mg/ml Inj IVP PRN (14:27)
--- NOTE | 2017-10-13 15:50 | CP.PCM.HP ---
<Yury Cardozo - Last Filed: 10/13/17 16:44> History of Present Illness - History of Present Illness History of Present Illness: Chief complaint: Abdominal pain HPI: 51 black male with a past medical histoy of polysubstance abuse, hypertension, hyperlipidemia, and chronic pancreatitis presenting to the [facility] ED with complaints of abdominal pain and nausea and vomiting. Patient states about 3 days ago while watching television and drinking erika, he suddenly experienced a sharp upper epigastric pain that was 10/10 non radiating, associated with nausea and several episodes of vomiting. Patient states he has experienced this sensation in the past. Patient experienced this for 3 days with ten episodes of vomiting each day before deciding to come to the ED. PMD: Dr. Vidales PMHx: Chronic Pancreatitis, alcohol abuse, thoracic aneurysm, HLD, chronic aortic dissection s/p repair, HTN, HLD PSHx: aneurysm repair 2014, pseudocyst drain SHx: + tobacco: 1ppdx 30 years. + etoh: fifth of erika daily, meth[facility]one [facility] dosage confirmed 130mg FHx: denies Allergies: NKDA Meds: feosol, asa, metoprolol, folic acid, pepcid, lipitor Present on Admission - Present on Admission Any Indicators Present on Admission: No Review of Systems - Constitutional Constitutional: absent: Anorexia (normal appetite), Chills, Fever - EENT Eyes: absent: Blurred Vision, Change in Vision Ears: absent: Ear Discharge, Disequilibrium, Dizziness Nose/Mouth/Throat: absent: Nasal Congestion, Nasal Discharge - Cardiovascular Cardiovascular: Chest Pain (upper epigastric). absent: Chest Pain at Rest, Chest Pain with Activity, Dyspnea - Respiratory Respiratory: absent: Cough, Dyspnea - Gastrointestinal Gastrointestinal: Abdominal Pain, Nausea, Vomiting. absent: Belching, Bloating - Genitourinary Genitourinary: absent: Dysuria, Hematuria - Musculoskeletal Musculoskeletal: absent: Arthralgias, Back Pain - Neurological Neurological: absent: Abnormal Hearing, Disequilibrium, Dizziness, Headaches - Psychiatric Psychiatric: absent: Anxiety, Behavioral Changes - Endocrine Endocrine: absent: Polyphagia, Polyuria - Hematologic/Lymphatic Hematologic: absent: Easy Bleeding, Easy Bruising Past Patient History - Infectious Disease Hx of Infectious Diseases: None - Tetanus Immunizations Tetanus Immunization: Unknown - Past Medical History & Family History Past Medical History?: Yes - Past Social History Smoking Status: Heavy Smoker > 10 Cigarettes Daily - CARDIAC Hx Cardiac Disorders: Yes (chest pain, aaa repair 2014) Hx Heart Murmur: (pt denies) Hx Hypercholesterolemia: Yes Hx Hypertension: Yes Other/Comment: aortic dissected repair/aaa 2014 - PULMONARY Hx Respiratory Disorders: Yes - NEUROLOGICAL Hx Neurological Disorder: No HX Cerebrovascular Accident: No Hx Seizures: No - HEENT Hx HEENT Problems: No - RENAL Hx Chronic Kidney Disease: No - ENDOCRINE/METABOLIC Hx Endocrine Disorders: No - HEMATOLOGICAL/ONCOLOGICAL Hx Blood Disorders: Yes Hx Anemia: Yes (iron deficiency) - INTEGUMENTARY Hx Dermatological Problems: No Other/Comment: 08-02-17 "BLACK EYE" FROM FALL.MISSED A STEP, dry skin both feet/ ankles . 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 - ANESTHESIA Hx Anesthesia: Yes Hx Anesthesia Reactions: No Hx Malignant Hyperthermia: No Meds Allergies/Adverse Reactions: Allergies Allergy/AdvReac Type Severity Reaction Status Date / Time No Known Allergies Allergy Verified 10/13/17 06:16 Physical Exam - Head Exam Head Exam: ATRAUMATIC, NORMAL INSPECTION, NORMOCEPHALIC - Eye Exam Eye Exam: EOMI, Normal appearance Pupil Exam: NORMAL ACCOMODATION - ENT Exam ENT Exam: Mucous Membranes Moist, Normal Exam - Neck Exam Neck exam: Positive for: Normal Inspection - Respiratory Exam Respiratory Exam: Clear to Auscultation Bilateral, NORMAL BREATHING PATTERN. absent: Rhonchi, Wheezes - Cardiovascular Exam Cardiovascular Exam: REGULAR RHYTHM, +S1, +S2 - GI/Abdominal Exam GI & Abdominal Exam: Normal Bowel Sounds, Soft, Tenderness. absent: Distended, Mass, Organomegaly, Rebound, Rigid - Back Exam Back exam: NORMAL INSPECTION - Neurological Exam Neurological exam: Alert, CN II-XII Intact, Oriented x3 - Psychiatric Exam Psychiatric exam: Normal Affect, Normal Mood - Skin Skin Exam: Dry, Intact, Normal Color, Warm Results - Vital Signs Recent Vital Signs: Last Vital Signs Temp 98.9 F 10/13/17 13:11 Pulse 97 H 10/13/17 13:11 Resp 16 10/13/17 13:11 BP 149/83 10/13/17 13:11 Pulse Ox 98 10/13/17 09:36 - Labs Result Diagrams: 10/13/17 06:52 10/13/17 08:00 Labs: Laboratory Results - last 24 hr 10/13/17 10:20 pCO2 23 L pO2 84.0 HCO3 12.7 L ABG pH 7.35 ABG Total CO2 13.4 L ABG O2 Saturation 98.1 H ABG Base Excess -11.1 L ABG Potassium 4.3 Sodium 138.0 Chloride 104.0 Glucose 79 Lactate 1.9 FiO2 21.0 Arterial Blood Potassium 4.3 Assessment & Plan - Assessment and Plan (Free Text) Assessment: 51 black male with a past medical histoy of polysubstance abuse, hypertension, hyperlipidemia, and chronic pancreatitis presenting to the [facility] ED with complaints of abdominal pain and nausea and vomiting found to have acute pancreatitis. Plan: Acute on chronic pancreatitis -Lipase elevated, CT abdomen shows no signs of acute pancreatitis, however evidenced clinically -NPO with ice chips -NS@200 -Lipid panel ordered -HgA1c -Morphine for pain Alcohol abuse -CIWA -Ativan and librium -Fall precautions -Seizure precautions -Aspiration precautions -Head above bed Acidosis -ABG ordered -Elevated anion gap (30) -Most likely due to EtOH; will rule out other causes -Urine/Serum osmoles ordered Substance abuse - 10 year history of herion abuse, currently on, uses Targazyme, dosage confirmed 130mg daily @8am - monitor for withdrawl symptoms Anemia - microcytic - continue Feosol - monitor closely with daily CBC Thrombocytopenia - likely 2/2 etoh abuse - avoid heparin/ppi - monitor closely via CBC Hypertension - BP stable currently - hold antihypertensives at this time - monitor closely - hydralazine prn for sbp>160 Hyperlipidemia - lipid panel pending - lipitor on hold PPX - scds - pepcid case reviewed and discussed with Dr. Healy <Karina Healy - Last Filed: 10/14/17 13:26> Results - Vital Signs Recent Vital Signs: Last Vital Signs Temp 98.9 F 10/14/17 12:00 Pulse 83 10/14/17 12:00 Resp 18 10/14/17 12:00 BP 147/98 H 10/14/17 12:00 Pulse Ox 96 10/14/17 08:29 - Labs Result Diagrams: 10/14/17 10:00 10/14/17 10:00 Labs: Laboratory Results - last 24 hr 10/13/17 10/13/17 10/13/17 15:46 16:48 16:48 WBC RBC Hgb Hct MCV MCH MCHC RDW Plt Count Gran % Lymph % (Auto) [place] % (Auto) Eos % (Auto) Baso % (Auto) Gran # Lymph # (Auto) [place] # (Auto) Eos # (Auto) Baso # (Auto) APTT Sodium Potassium Chloride Carbon Dioxide Anion Gap BUN Creatinine Est GFR ( Amer) Est GFR (Non-Af Amer) POC Glucose (mg/dL) 57 L Random Glucose Hemoglobin A1c 4.9 Calcium Total Bilirubin AST ALT Alkaline Phosphatase Troponin I 0.06 D Total Protein Albumin Globulin Albumin/Globulin Ratio Amylase 10/13/17 10/13/17 10/13/17 16:57 21:11 21:59 WBC RBC Hgb Hct MCV MCH MCHC RDW Plt Count Gran % Lymph % (Auto) [place] % (Auto) Eos % (Auto) Baso % (Auto) Gran # Lymph # (Auto) [place] # (Auto) Eos # (Auto) Baso # (Auto) APTT Sodium Potassium Chloride Carbon Dioxide Anion Gap BUN Creatinine Est GFR ( Amer) Est GFR (Non-Af Amer) POC Glucose (mg/dL) 124 H 173 H Random Glucose Hemoglobin A1c Calcium Total Bilirubin AST ALT Alkaline Phosphatase Troponin I 0.18 H* D Total Protein Albumin Globulin Albumin/Globulin Ratio Amylase 10/14/17 10/14/17 10/14/17 05:00 07:25 09:15 WBC RBC Hgb Hct MCV MCH MCHC RDW Plt Count Gran % Lymph % (Auto) [place] % (Auto) Eos % (Auto) Baso % (Auto) Gran # Lymph # (Auto) [place] # (Auto) Eos # (Auto) Baso # (Auto) APTT 41.8 H Sodium Potassium Chloride Carbon Dioxide Anion Gap BUN Creatinine Est GFR ( Amer) Est GFR (Non-Af Amer) POC Glucose (mg/dL) 176 H Random Glucose Hemoglobin A1c Calcium Total Bilirubin AST ALT Alkaline Phosphatase Troponin I 2.28 H* D Total Protein Albumin Globulin Albumin/Globulin Ratio Amylase 10/14/17 10/14/17 10/14/17 10:00 10:00 10:13 WBC 10.0 D RBC 4.40 Hgb 12.2 L Hct 34.1 L MCV 77.5 L MCH 27.7 MCHC 35.8 RDW 16.7 H Plt Count 40 L* Gran % 74.5 H Lymph % (Auto) 16.8 L [place] % (Auto) 8.4 H Eos % (Auto) 0.2 L Baso % (Auto) 0.1 Gran # 7.47 H Lymph # (Auto) 1.7 [place] # (Auto) 0.8 H Eos # (Auto) 0.0 Baso # (Auto) 0.01 APTT Sodium 130 L Potassium 4.5 Chloride 96 L Carbon Dioxide 26 Anion Gap 13 BUN 12 Creatinine 0.5 L Est GFR ( Amer) > 60 Est GFR (Non-Af Amer) > 60 POC Glucose (mg/dL) Random Glucose 178 H Hemoglobin A1c Calcium 9.3 Total Bilirubin 1.5 H AST 188 H D ALT 139 H Alkaline Phosphatase 75 Troponin I Total Protein 6.4 Albumin 3.6 Globulin 2.8 Albumin/Globulin Ratio 1.3 Amylase 217 H 10/14/17 12:13 WBC RBC Hgb Hct MCV MCH MCHC RDW Plt Count Gran % Lymph % (Auto) [place] % (Auto) Eos % (Auto) Baso % (Auto) Gran # Lymph # (Auto) [place] # (Auto) Eos # (Auto) Baso # (Auto) APTT Sodium Potassium Chloride Carbon Dioxide Anion Gap BUN Creatinine Est GFR ( Amer) Est GFR (Non-Af Amer) POC Glucose (mg/dL) 132 H Random Glucose Hemoglobin A1c Calcium Total Bilirubin AST ALT Alkaline Phosphatase Troponin I Total Protein Albumin Globulin Albumin/Globulin Ratio Amylase Attending/Attestation - Attestation I have personally seen and examined this patient.: Yes I have fully participated in the care of the patient.: Yes I have reviewed all pertinent clinical information: Yes Notes (Text): 10/14/17 13:20 attending note; Patient seen and examined with resident in ER. Patient is alert, awake. Complaining of abdominal pain. Requesting pain medication. Patient is a 51 year old male with a past medical histoy of polysubstance abuse , on methadone program, hypertension, hyperlipidemia, and chronic pancreatitis presenting to the [facility] ED with complaints of abdominal pain and nausea and vomiting after heavy Alcohol abuse. Currently with epigastric pain consistent with alcohol-induced pancreatitis. Lipase is elevated. Nothing by mouth, IV fluids,IV morphine. Chronic alcohol abuse; started on IV Ativan. monitor closely with CIWA protocol. started on banana bag. complete alcohol cessation is strongly advised. thrombocytopenia; secondary to alcohol abuse. monitor closely. Patient had episodes of alcohol-induced bone marrow suppression with low platelets in the past. History of aortic aneurysm repair in the past; noncompliance with follow-up. started on IV betablocker. cardiac enzymes ordered for atypical chest pain. Monitor patient closely in telemetry. upon discharge the patient will follow up with PMD . Prognosis is poor secondary to noncompliance with follow-up and continuous alcohol abuse. 10/14/17 13:25
[2017-10-13] MEDS ORDERED: Morphine 2 mg/ml ISec IM SCH (16:00)
[2017-10-13] MEDS: Folic Acid 1 MG, Thiamine 100 MG, Multivitamin (MVI) 10 ML in Dextrose 5% In Water 1,00... IV SCH ×2 (16:10→21:21)
--- NOTE | 2017-10-13 17:25 | CARD ---
APPROVED REPORT EKG Measurement Heart [id number] <Conclusion> Normal sinus rhythm Minimal voltage criteria for LVH, may be normal variant Prolonged QT Abnormal ECG
--- NOTE | 2017-10-13 17:31 | CARD ---
APPROVED REPORT EKG Measurement Heart [id number] <Conclusion> Normal sinus rhythm Left atrial enlargement Prolonged QT Abnormal ECG
[2017-10-13] MEDS: Morphine 2 mg/ml ISec IVP SCH ×3 (17:36→23:46)
--- NOTE | 2017-10-14 01:10 | CT ---
EXAM: CT Chest Without Intravenous Contrast CLINICAL HISTORY: 51 years old, male; Signs and symptoms; Other: Increased troponin TECHNIQUE: Axial computed tomography images of the chest without intravenous contrast. All CT scans at this facility use one or more dose reduction techniques, viz.: automated exposure control; ma/kV adjustment per patient size (including targeted exams where dose is matched to indication; i.e. head); or iterative reconstruction technique. 565 images are submitted. Coronal and sagittal reformatted images were created and reviewed. COMPARISON: CT - ANGIO CHEST PE PROTOCOL 2015-08-31 20:14 FINDINGS: Lungs: Hazy infiltration of bilateral lower lobes lingula representing atelectasis versus edema. Pleural space: Unremarkable. No pneumothorax. No significant effusion. Heart: Unremarkable. No cardiomegaly. No significant pericardial effusion. Mediastinum: Small hiatal hernia. Small hiatal hernia. Bones/joints: There is compression fracture deformity of the superior endplate of T1 seen on image 67 series 602 which is new from prior examination. Correlation with patient's clinical symptoms is recommended. There are sternal wires consistent with previous sternotomy incision. No dislocation. Soft tissues: Unremarkable. Vasculature: There are postsurgical changes involving the ascending aorta with graft. The aorta is tortuous and ectatic. There is aneurysmal dilatation of the graft measuring 5.1 cm. Lymph nodes: Unremarkable. No enlarged lymph nodes. Pancreas: There is lesion as in the left upper quadrant and around the pancreas.Correlation with pancreatic enzymes is recommended. Adrenals: Adrenal glands are seen. Upper abdomen: Evaluation of the right hemidiaphragm. IMPRESSION: 1. Hazy infiltration of bilateral lower lobes lingula representing atelectasis versus edema. 2. There is compression fracture deformity of the superior endplate of T1 seen on image 67 series 602 which is new from prior examination. Correlation with patient's clinical symptoms is recommended.
[2017-10-14] MEDS: Folic Acid 1 MG, Thiamine 100 MG, Multivitamin (MVI) 10 ML in Dextrose 5% In Water 1,00... IV SCH (02:23)
[2017-10-14] MEDS ORDERED: Heparin25000 units/250ml 1/2NS 25,000 UNITS/250 ML BAG IV SCH (02:45)
[2017-10-14] MEDS: Morphine 2 mg/ml ISec IVP SCH ×5 (04:56→20:21)
--- NOTE | 2017-10-14 09:55 | CP.PCM.PN ---
<Quang Enriquez - Last Filed: 10/14/17 14:16> Subjective - Date & Time of Evaluation Date of Evaluation: 10/14/17 Time of Evaluation: 06:00 - Subjective Subjective: Patient seen and examined bedside. Patient was sleeping comfortably. Patient was awaken. He stated he had chest pain in the epgastric region, similar to one that started 4 days ago from pancreattitis. He denied shortness of breath, nausea, vomiting, or any diaphoresis. Objective - Vital Signs/Intake and Output Vital Signs (last 24 hours): Temp Pulse Resp BP Pulse Ox 99.2 F 85 20 145/89 96 10/14/17 08:29 10/14/17 08:29 10/14/17 08:29 10/14/17 08:29 10/14/17 08:29 Intake and Output: 10/14/17 10/14/17 06:59 18:59 Intake Total 2400 Output Total 400 Balance 2000 - Medications Medications: Current Medications Famotidine (Pepcid) 20 mg IVP DAILY [facility] Hydralazine HCl (Apresoline) 10 mg IVP Q6 PRN PRN Reason: Systolic Blood Pressure Folic Acid 1 mg/ Thiamine HCl 100 mg/ Multivitamins/Vitamin C 10 ml/ Dextrose 1 ,011.2 mls @ 200 mls/hr IV .Q5H4M [facility] Last Admin: 10/14/17 02:23 Dose: 200 mls/hr Heparin Sodium/Sodium Chloride (Heparin 12461 Units/250ml 1/2 Normal Saline) 25 ,000 units in 250 mls @ 7.076 mls/hr IV .Q24H [facility]; 12 UNITS/KG/HR PRN Reason: Protocol Last Admin: 10/14/17 03:32 Dose: 12 units/kg/hr, 7.076 mls/hr Lorazepam (Ativan) 2 mg IVP Q2H PRN; Protocol PRN Reason: Symptoms of alcohol withdrawl Last Admin: 10/13/17 21:03 Dose: 2 mg Metoprolol Tartrate (Lopressor) 5 mg IVP Q6 PRN PRN Reason: Systolic Blood Pressure Last Admin: 10/13/17 23:03 Dose: 5 mg Morphine Sulfate (Morphine) 2 mg IVP Q4 [facility] Last Admin: 10/14/17 07:46 Dose: 2 mg Ondansetron HCl (Zofran Inj) 4 mg IVP Q4H PRN PRN Reason: Nausea/Vomiting Last Admin: 10/13/17 16:05 Dose: 4 mg - Labs Labs: PT 10.9 SECONDS (9.4-12.5) 10/13/17 07:03 INR 0.95 (0.93-1.08) 10/13/17 07:03 APTT 108.2 Seconds (25.1-36.5) H* 10/14/17 09:15 - Constitutional Appears: Non-toxic, No Acute Distress, Unkempt - Head Exam Head Exam: ATRAUMATIC, NORMAL INSPECTION, NORMOCEPHALIC - ENT Exam ENT Exam: Mucous Membranes Moist - Respiratory Exam Respiratory Exam: NORMAL BREATHING PATTERN - Cardiovascular Exam Cardiovascular Exam: REGULAR RHYTHM - GI/Abdominal Exam GI & Abdominal Exam: Tenderness - Neurological Exam Neurological Exam: Alert, Awake, Oriented x3 Assessment and Plan - Assessment and Plan (Free Text) Assessment: 51 black male with a past medical histoy of polysubstance abuse, hypertension, hyperlipidemia, and chronic pancreatitis presenting to the [facility] ED with complaints of abdominal pain and nausea and vomiting found to have acute pancreatitis. Patient found to have elevated troponins this morning. Plan: Acute on chronic pancreatitis -Lipase elevated, CT abdomen shows no signs of acute pancreatitis, however evidenced clinically -NPO with ice chips -NS@200 -Lipid panel Trigl: 354 Cholesterol: 240 LDL : 69 -HgA1C : 4.9 -Morphine for pain NSTEMI -Trop 2.28 -Stat EKG showing no changes from previous, pending official read -Cardiology consulted, Nicolás, rose recs -Started on heparin drip -Aspirin -possible cath on monday Alcohol abuse -CIWA -Ativan and librium -Fall precautions -Seizure precautions -Aspiration precautions -Head above bed Substance abuse - 10 year history of hereon abuse, currently on, uses [employer], dosage confirmed 130mg daily @8am - monitor for withdrawal symptoms Anemia - microcytic - continue Feosol - monitor closely with daily CBC Thrombocytopenia - likely 2/2 etoh abuse - avoid heparin/ppi - monitor closely via CBC Hypertension - BP stable currently - monitor closely - hydralazine prn for sbp>160 Hyperlipidemia -Lipid panel Trigl: 354 Cholesterol: 240 LDL : 69 - lipitor on hold Thrombocytopenia -platelets 40 -possibly secondary to alcohol abuse -continue to monitor -heme consulted, Remus, follow recs PPX - scds - pepcid <Karina Healy - Last Filed: 10/15/17 17:55> Objective - Vital Signs/Intake and Output Vital Signs (last 24 hours): Temp Pulse Resp BP Pulse Ox 98.2 F 82 20 138/80 97 10/15/17 12:00 10/15/17 12:00 10/15/17 12:00 10/15/17 12:46 10/15/17 06:00 Intake and Output: 10/15/17 10/15/17 06:59 18:59 Intake Total 100 Output Total Balance 100 - Medications Medications: Current Medications Aspirin (Ecotrin) 81 mg PO DAILY [facility] Last Admin: 10/15/17 10:08 Dose: Not Given Famotidine (Pepcid) 20 mg IVP Q12 [facility] Last Admin: 10/15/17 09:36 Dose: 20 mg Hydralazine HCl (Apresoline) 10 mg IVP Q6 PRN PRN Reason: Systolic Blood Pressure Heparin Sodium/Sodium Chloride (Heparin 92022 Units/250ml 1/2 Normal Saline) 25 ,000 units in 250 mls @ 8.7 mls/hr IV .Q24H [facility]; 14 UNITS/KG/HR PRN Reason: Protocol Last Admin: 10/15/17 12:23 Dose: 14.32 units/kg/hr, 8.9 mls/hr Potassium Chloride 40 meq/ (Lactated Ringer's) 1,020 mls @ 150 mls/hr IV .Q6H48M [facility] Folic Acid 1 mg/ Sodium (Chloride) 50.2 mls @ 150.6 mls/hr IV DAILY [facility] Last Admin: 10/15/17 14:47 Dose: 150.6 mls/hr Lorazepam (Ativan) 2 mg IVP Q2H PRN; Protocol PRN Reason: Symptoms of alcohol withdrawl Last Admin: 10/14/17 20:48 Dose: 2 mg Lorazepam (Ativan) 1 mg IVP Q6H [facility] PRN Reason: Protocol Last Admin: 10/15/17 12:46 Dose: 1 mg Metoprolol Tartrate (Lopressor) 5 mg IVP Q6 PRN PRN Reason: Systolic Blood Pressure Last Admin: 10/15/17 06:11 Dose: 5 mg Metoprolol Tartrate (Lopressor) 5 mg IVP Q12 [facility] Last Admin: 10/15/17 09:36 Dose: 5 mg Morphine Sulfate (Morphine) 2 mg IVP Q4 [facility] Last Admin: 10/15/17 14:25 Dose: 2 mg Ondansetron HCl (Zofran Inj) 4 mg IVP Q4H PRN PRN Reason: Nausea/Vomiting Last Admin: 10/13/17 16:05 Dose: 4 mg - Labs Labs: 10/15/17 05:00 10/15/17 05:00 PT 10.9 SECONDS (9.4-12.5) 10/13/17 07:03 INR 0.95 (0.93-1.08) 10/13/17 07:03 APTT 23.8 Seconds (25.1-36.5) L 10/15/17 15:46 Attending/Attestation - Attestation I have personally seen and examined this patient.: Yes I have fully participated in the care of the patient.: Yes I have reviewed all pertinent clinical information, including history, physical exam and plan: Yes Notes (Text): 10/15/17 17:50 attending note; Patient seen and examined with resident. Patient is alert. mostly sleeping secondary to morphine and Ativan. Not in any acute distress. Complaining of abdominal pain and Requesting pain medication upon waking up. Vitals stable. Patient is a 51 year old male with a past medical histoy of polysubstance abuse , on methadone program, hypertension, hyperlipidemia, and chronic pancreatitis presenting to the [facility] ED with complaints of abdominal pain and nausea and vomiting after heavy Alcohol abuse. Currently with epigastric pain consistent with alcohol-induced pancreatitis. Lipase is elevated. Nothing by mouth, IV fluids,IV morphine. Alcoholic ketoacidosis resolved. GI evaluation with Dr. gallardo appreciated. Chronic alcohol abuse; started on IV Ativan. monitor closely with CIWA protocol. continue IV multivitamin and folic acid. thrombocytopenia; secondary to alcohol abuse. monitor closely. Patient had episodes of alcohol-induced bone marrow suppression with low platelets in the past. no active bleeding. Case discussed with hematology Dr. Ace in detail. continue heparin for now. Monitor closely. History of aortic aneurysm repair in the past; noncompliance with follow-up. started on IV betablocker. cardiac enzymes ordered for atypical chest pain. Monitor patient closely in telemetry. upon discharge the patient will follow up with PMD . Prognosis is poor secondary to noncompliance with follow-up and continuous alcohol abuse. 10/15/17 17:55
[2017-10-14] MEDS ORDERED: Lactated Ringer's 1,000 ML IV SCH (10:15)
[2017-10-14 10:34] LABS: BASO # 0.01 K/mm3 (0.0-2.0); BASO % 0.1 % (0.0-3.0); EOS % 0.2 % (1.5-5.0); GRAN # 7.47 (1.4-6.5); GRAN % 74.5 % (50.0-68.0); HEMOGLOBIN 12.2 g/dL (14.0-18.0); LYMPH # 1.7 (1.2-3.4); LYMPH % 16.8 % (22.0-35.0); MEAN CELL VOLUME 77.5 fl (80.0-105.0); MEAN CORPUSCULAR HEMOGLOBIN 27.7 pg (25.0-35.0); MEAN CORPUSCULAR HGB CONC 35.8 g/dl (31.0-37.0); MONO # 0.8 (0.1-0.6); MONO % 8.4 % (1.0-6.0); PLATELET COUNT 40 10^3/uL (120.0-450.0); RED CELL DISTRIBUTION WIDTH 16.7 % (11.5-14.5)
[2017-10-14 10:36] LABS: ALB/GLOB RATIO 1.3 (1.1-1.8); ALBUMIN 3.6 g/dL (3.0-4.8); ALT/SGPT 139 U/L (7-56); AST/SGOT 188 U/L (17-59); BLOOD UREA NITROGEN 12 mg/dL (7-21); CALCIUM 9.3 mg/dL (8.4-10.5); GFR AFRICAN-AMERICAN > 60; GFR NON-AFRICAN AMERICAN > 60
[2017-10-14] MEDS: Lactated Ringer's 1,000 ML IV SCH ×2 (11:05→18:51)
[2017-10-14] MEDS ORDERED: Metoprolol 1 mg/ml Inj IVP SCH (13:15)
--- NOTE | 2017-10-14 14:11 | CP.PCM.CON ---
History of Present Illness - History of Present Illness History of Present Illness: Seen and examined by me and Dr. Brown Reason for consultation: Atypical chest pain, history of chronic pancreatitis, past medical history of polysubstance abuse,hypertension,hyperlipidemia, Surgical history: Aortic aneurysm repair 2014 in [facility]. Social history: smoker x 30 years,current alcohol abuse 5 glasses of erika everyday, on Meth[facility]one [facility] Review of Systems - EENT Additional comments: adsent blurred vision,change in vision - Cardiovascular Additional comments: Chest pain upper epigastric, chest pain at rest - Respiratory Additional comments: absent shortness of breath, or cough - Gastrointestinal Gastrointestinal: Abdominal Pain, Heartburn, Nausea, Vomiting - Genitourinary Genitourinary: Urinary Incontinence - Neurological Additional comments: Lethargic but arousable to name calling - Psychiatric Psychiatric: Anxiety Past Patient History - Infectious Disease Hx of Infectious Diseases: None - Tetanus Immunizations Tetanus Immunization: Unknown - Past Medical History & Family History Past Medical History?: Yes - Past Social History Smoking Status: Heavy Smoker > 10 Cigarettes Daily Chewing Tobacco Use: No Cigar Use: No Alcohol: > 2 Drinks/Day - CARDIAC Hx Cardiac Disorders: Yes (chest pain, aaa repair 2014) Hx Heart Murmur: (pt denies) Hx Hypercholesterolemia: Yes Hx Hypertension: Yes Other/Comment: aortic dissected repair/aaa 2014 - PULMONARY Hx Respiratory Disorders: Yes - NEUROLOGICAL Hx Neurological Disorder: No HX Cerebrovascular Accident: No Hx Seizures: No - HEENT Hx HEENT Problems: No - RENAL Hx Chronic Kidney Disease: No - ENDOCRINE/METABOLIC Hx Endocrine Disorders: No - HEMATOLOGICAL/ONCOLOGICAL Hx Blood Disorders: Yes Hx Anemia: Yes (iron deficiency) - INTEGUMENTARY Hx Dermatological Problems: No Other/Comment: 08-02-17 "BLACK EYE" FROM FALL.MISSED A STEP, dry skin both feet/ ankles . 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 - ANESTHESIA Hx Anesthesia: Yes Hx Anesthesia Reactions: No Hx Malignant Hyperthermia: No Meds Allergies/Adverse Reactions: Allergies Allergy/AdvReac Type Severity Reaction Status Date / Time No Known Allergies Allergy Verified 10/13/17 06:16 - Medications Medications: Current Medications Aspirin (Ecotrin) 81 mg PO DAILY [facility] Last Admin: 10/14/17 12:49 Dose: 81 mg Famotidine (Pepcid) 20 mg IVP Q12 [facility] Folic Acid (Folic Acid) 1 mg IVP DAILY [facility] Last Admin: 10/14/17 12:06 Dose: Not Given Hydralazine HCl (Apresoline) 10 mg IVP Q6 PRN PRN Reason: Systolic Blood Pressure Heparin Sodium/Sodium Chloride (Heparin 66787 Units/250ml 1/2 Normal Saline) 25 ,000 units in 250 mls @ 7.076 mls/hr IV .Q24H [facility]; 12 UNITS/KG/HR PRN Reason: Protocol Last Titration: 10/14/17 11:02 Dose: 14 units/kg/hr, 8.255 mls/hr Lactated Ringer's (Lactated Ringer's) 1,000 mls @ 150 mls/hr IV .Q6H40M [facility] Last Admin: 10/14/17 11:05 Dose: 150 mls/hr Lorazepam (Ativan) 2 mg IVP Q2H PRN; Protocol PRN Reason: Symptoms of alcohol withdrawl Last Admin: 10/13/17 21:03 Dose: 2 mg Metoprolol Tartrate (Lopressor) 5 mg IVP Q6 PRN PRN Reason: Systolic Blood Pressure Metoprolol Tartrate (Lopressor) 5 mg IVP Q12 [facility] Morphine Sulfate (Morphine) 2 mg IVP Q4 [facility] Last Admin: 10/14/17 12:41 Dose: 2 mg Ondansetron HCl (Zofran Inj) 4 mg IVP Q4H PRN PRN Reason: Nausea/Vomiting Last Admin: 10/13/17 16:05 Dose: 4 mg Physical Exam - Constitutional Appears: No Acute Distress, Cachectic - Eye Exam Eye Exam: Normal appearance Pupil Exam: NORMAL ACCOMODATION - ENT Exam ENT Exam: Mucous Membranes Moist, Normal Exam - Neck Exam Neck exam: Positive for: Normal Inspection - Respiratory Exam Respiratory Exam: Decreased Breath Sounds, Clear to Auscultation Bilateral, NORMAL BREATHING PATTERN - Cardiovascular Exam Cardiovascular Exam: REGULAR RHYTHM, +S1, +S2 Additional comments: lower mid tenderness on palpation with pain - GI/Abdominal Exam GI & Abdominal Exam: Soft, Tenderness Additional comments: slightly distended - Extremities Exam Extremities exam: Positive for: full ROM, normal capillary refill, normal inspection Results - Vital Signs Recent Vital Signs: Last Vital Signs Temp 98.9 F 10/14/17 12:00 Pulse 83 10/14/17 12:00 Resp 18 10/14/17 12:00 BP 147/98 H 10/14/17 12:00 Pulse Ox 96 10/14/17 08:29 - Labs Result Diagrams: 10/14/17 10:00 10/14/17 10:00 Labs: Laboratory Results - last 24 hr 10/13/17 10/13/17 10/13/17 15:46 16:48 16:48 WBC RBC Hgb Hct MCV MCH MCHC RDW Plt Count Gran % Lymph % (Auto) [place] % (Auto) Eos % (Auto) Baso % (Auto) Gran # Lymph # (Auto) [place] # (Auto) Eos # (Auto) Baso # (Auto) APTT Sodium Potassium Chloride Carbon Dioxide Anion Gap BUN Creatinine Est GFR ( Amer) Est GFR (Non-Af Amer) POC Glucose (mg/dL) 57 L Random Glucose Hemoglobin A1c 4.9 Calcium Total Bilirubin AST ALT Alkaline Phosphatase Troponin I 0.06 D Total Protein Albumin Globulin Albumin/Globulin Ratio Amylase 10/13/17 10/13/17 10/13/17 16:57 21:11 21:59 WBC RBC Hgb Hct MCV MCH MCHC RDW Plt Count Gran % Lymph % (Auto) [place] % (Auto) Eos % (Auto) Baso % (Auto) Gran # Lymph # (Auto) [place] # (Auto) Eos # (Auto) Baso # (Auto) APTT Sodium Potassium Chloride Carbon Dioxide Anion Gap BUN Creatinine Est GFR ( Amer) Est GFR (Non-Af Amer) POC Glucose (mg/dL) 124 H 173 H Random Glucose Hemoglobin A1c Calcium Total Bilirubin AST ALT Alkaline Phosphatase Troponin I 0.18 H* D Total Protein Albumin Globulin Albumin/Globulin Ratio Amylase 10/14/17 10/14/17 10/14/17 05:00 07:25 09:15 WBC RBC Hgb Hct MCV MCH MCHC RDW Plt Count Gran % Lymph % (Auto) [place] % (Auto) Eos % (Auto) Baso % (Auto) Gran # Lymph # (Auto) [place] # (Auto) Eos # (Auto) Baso # (Auto) APTT 41.8 H Sodium Potassium Chloride Carbon Dioxide Anion Gap BUN Creatinine Est GFR ( Amer) Est GFR (Non-Af Amer) POC Glucose (mg/dL) 176 H Random Glucose Hemoglobin A1c Calcium Total Bilirubin AST ALT Alkaline Phosphatase Troponin I 2.28 H* D Total Protein Albumin Globulin Albumin/Globulin Ratio Amylase 10/14/17 10/14/17 10/14/17 10:00 10:00 10:13 WBC 10.0 D RBC 4.40 Hgb 12.2 L Hct 34.1 L MCV 77.5 L MCH 27.7 MCHC 35.8 RDW 16.7 H Plt Count 40 L* Gran % 74.5 H Lymph % (Auto) 16.8 L [place] % (Auto) 8.4 H Eos % (Auto) 0.2 L Baso % (Auto) 0.1 Gran # 7.47 H Lymph # (Auto) 1.7 [place] # (Auto) 0.8 H Eos # (Auto) 0.0 Baso # (Auto) 0.01 APTT Sodium 130 L Potassium 4.5 Chloride 96 L Carbon Dioxide 26 Anion Gap 13 BUN 12 Creatinine 0.5 L Est GFR ( Amer) > 60 Est GFR (Non-Af Amer) > 60 POC Glucose (mg/dL) Random Glucose 178 H Hemoglobin A1c Calcium 9.3 Total Bilirubin 1.5 H AST 188 H D ALT 139 H Alkaline Phosphatase 75 Troponin I Total Protein 6.4 Albumin 3.6 Globulin 2.8 Albumin/Globulin Ratio 1.3 Amylase 217 H 10/14/17 12:13 WBC RBC Hgb Hct MCV MCH MCHC RDW Plt Count Gran % Lymph % (Auto) [place] % (Auto) Eos % (Auto) Baso % (Auto) Gran # Lymph # (Auto) [place] # (Auto) Eos # (Auto) Baso # (Auto) APTT Sodium Potassium Chloride Carbon Dioxide Anion Gap BUN Creatinine Est GFR ( Amer) Est GFR (Non-Af Amer) POC Glucose (mg/dL) 132 H Random Glucose Hemoglobin A1c Calcium Total Bilirubin AST ALT Alkaline Phosphatase Troponin I Total Protein Albumin Globulin Albumin/Globulin Ratio Amylase - EKG Data EKG shows normal: Sinus rhythm Rate: Normal - EKG Data When Compared to Previous EKG: No Significant Change Assessment & Plan - Assessment and Plan (Free Text) Assessment: Review of previous records and test: ECHO done at [facility] February 2017 showed Trace MR with EF of 70%. Stress test done in [facility] 2016 was normal. Impression:Atypical chest pain ,epigastric pain radiating to chest, history of chronic pancreatitis, past medical history of polysubstance abuse,hypertension, hyperlipidemia, Aortic aneurysm repair 2014, smoker x 30 years,current alcohol abuse 5 glasses of erika everyday, on Meth[facility]one [facility]. Plan: Atypical Chest pain,most likely pain radiating from epigastric area Will order EKG and serial troponin to rule out myocardial Infarction Hypertension-Continue Metropolol,Stable blood pressure and heart rate,On PRN IV Hydralazine and Metropolol Condition guarded. PRN Morphine for abdominal pain Will follow Plan and treatment reviewed with Dr. brown Thank you for for giving us the opportunity in taking care of Rasta Delgado.
[2017-10-14] MEDS: Metoprolol 1 mg/ml Inj IVP PRN (14:25)
--- NOTE | 2017-10-14 16:47 | CARD ---
APPROVED REPORT EKG Measurement Heart [id number] <Conclusion> Normal sinus rhythm Prolonged QT Abnormal ECG
--- NOTE | 2017-10-14 16:50 | CARD ---
APPROVED REPORT EKG Measurement Heart [id number] <Conclusion> Normal sinus rhythm Minimal voltage criteria for LVH, may be normal variant Prolonged QT Abnormal ECG
--- NOTE | 2017-10-14 18:35 | CP.PCM.CON ---
History of Present Illness - History of Present Illness History of Present Illness: 51 year old male with a history of HTN, HL, alcoholism complicated by chronic pancreatitis, presenting with chest pain and abdominal pain, found to be anemic and thrombocytopenic. The patient denies abnormal bleeding and bruising. He continues to drink 1 pint erika daily. He is currently on heparin and antiplatelets. Review of his blood work shows intermittent thrombocytopenia and anemia. Past medical history: HTN, HL, alcoholism, pancreatitis, anemia, thrombocytopenia Past surgical history: Aortic aneurysm repair Family history: Denies hematologic and oncologic problems Social history: 1ppd x 35 years, 1 pint erika daily, denies illicit drug use. Allergies: NKA Review of systems: All remaining review of systems including HEENT, cardiovascular, respiratory, gastrointestinal, genitourinary, musculoskeletal, dermatologic, neurologic, and psychiatric are negative unless mentioned in the HPI. Past Patient History - Infectious Disease Hx of Infectious Diseases: None - Tetanus Immunizations Tetanus Immunization: Unknown - Past Medical History & Family History Past Medical History?: Yes - Past Social History Smoking Status: Heavy Smoker > 10 Cigarettes Daily Chewing Tobacco Use: No Cigar Use: No Alcohol: > 2 Drinks/Day - CARDIAC Hx Cardiac Disorders: Yes (chest pain, aaa repair 2014) Hx Heart Murmur: (pt denies) Hx Hypercholesterolemia: Yes Hx Hypertension: Yes Other/Comment: aortic dissected repair/aaa 2014 - PULMONARY Hx Respiratory Disorders: Yes - NEUROLOGICAL Hx Neurological Disorder: No HX Cerebrovascular Accident: No Hx Seizures: No - HEENT Hx HEENT Problems: No - RENAL Hx Chronic Kidney Disease: No - ENDOCRINE/METABOLIC Hx Endocrine Disorders: No - HEMATOLOGICAL/ONCOLOGICAL Hx Blood Disorders: Yes Hx Anemia: Yes (iron deficiency) - INTEGUMENTARY Hx Dermatological Problems: No Other/Comment: 08-02-17 "BLACK EYE" FROM FALL.MISSED A STEP, dry skin both feet/ ankles . 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 - ANESTHESIA Hx Anesthesia: Yes Hx Anesthesia Reactions: No Hx Malignant Hyperthermia: No Meds Allergies/Adverse Reactions: Allergies Allergy/AdvReac Type Severity Reaction Status Date / Time No Known Allergies Allergy Verified 10/13/17 06:16 - Medications Medications: Current Medications Aspirin (Ecotrin) 81 mg PO DAILY [facility] Last Admin: 10/14/17 12:49 Dose: 81 mg Famotidine (Pepcid) 20 mg IVP Q12 [facility] Folic Acid (Folic Acid) 1 mg IVP DAILY [facility] Last Admin: 10/14/17 12:06 Dose: Not Given Hydralazine HCl (Apresoline) 10 mg IVP Q6 PRN PRN Reason: Systolic Blood Pressure Heparin Sodium/Sodium Chloride (Heparin 94474 Units/250ml 1/2 Normal Saline) 25 ,000 units in 250 mls @ 7.076 mls/hr IV .Q24H [facility]; 12 UNITS/KG/HR PRN Reason: Protocol Last Titration: 10/14/17 11:02 Dose: 14 units/kg/hr, 8.255 mls/hr Lactated Ringer's (Lactated Ringer's) 1,000 mls @ 150 mls/hr IV .Q6H40M [facility] Last Admin: 10/14/17 11:05 Dose: 150 mls/hr Lorazepam (Ativan) 2 mg IVP Q2H PRN; Protocol PRN Reason: Symptoms of alcohol withdrawl Last Admin: 10/13/17 21:03 Dose: 2 mg Metoprolol Tartrate (Lopressor) 5 mg IVP Q6 PRN PRN Reason: Systolic Blood Pressure Last Admin: 10/14/17 14:25 Dose: 5 mg Metoprolol Tartrate (Lopressor) 5 mg IVP Q12 [facility] Morphine Sulfate (Morphine) 2 mg IVP Q4 [facility] Last Admin: 10/14/17 16:10 Dose: 2 mg Ondansetron HCl (Zofran Inj) 4 mg IVP Q4H PRN PRN Reason: Nausea/Vomiting Last Admin: 10/13/17 16:05 Dose: 4 mg Physical Exam - Head Exam Head Exam: ATRAUMATIC - Eye Exam Eye Exam: Normal appearance - ENT Exam ENT Exam: Mucous Membranes Dry - Respiratory Exam Respiratory Exam: NORMAL BREATHING PATTERN - Cardiovascular Exam Cardiovascular Exam: +S1, +S2 - GI/Abdominal Exam GI & Abdominal Exam: Normal Bowel Sounds - Extremities Exam Extremities exam: Positive for: normal inspection - Neurological Exam Neurological exam: Oriented x3 - Skin Skin Exam: Warm Results - Vital Signs Recent Vital Signs: Last Vital Signs Temp 98.9 F 10/14/17 12:00 Pulse 89 10/14/17 14:25 Resp 18 10/14/17 12:00 BP 158/92 H 10/14/17 14:25 Pulse Ox 98 10/14/17 14:25 - Labs Result Diagrams: 10/14/17 10:00 10/14/17 10:00 Labs: Laboratory Results - last 24 hr 10/13/17 10/13/17 10/13/17 16:48 21:11 21:59 WBC RBC Hgb Hct MCV MCH MCHC RDW Plt Count Gran % Lymph % (Auto) Edgar % (Auto) Eos % (Auto) Baso % (Auto) Gran # Lymph # (Auto) Edgar # (Auto) Eos # (Auto) Baso # (Auto) APTT Sodium Potassium Chloride Carbon Dioxide Anion Gap BUN Creatinine Est GFR ( Amer) Est GFR (Non-Af Amer) POC Glucose (mg/dL) 173 H Random Glucose Hemoglobin A1c 4.9 Calcium Total Bilirubin AST ALT Alkaline Phosphatase Troponin I 0.18 H* D Total Protein Albumin Globulin Albumin/Globulin Ratio Amylase 10/14/17 10/14/17 10/14/17 05:00 07:25 09:15 WBC RBC Hgb Hct MCV MCH MCHC RDW Plt Count Gran % Lymph % (Auto) Edgar % (Auto) Eos % (Auto) Baso % (Auto) Gran # Lymph # (Auto) Edgar # (Auto) Eos # (Auto) Baso # (Auto) APTT 41.8 H Sodium Potassium Chloride Carbon Dioxide Anion Gap BUN Creatinine Est GFR ( Amer) Est GFR (Non-Af Amer) POC Glucose (mg/dL) 176 H Random Glucose Hemoglobin A1c Calcium Total Bilirubin AST ALT Alkaline Phosphatase Troponin I 2.28 H* D Total Protein Albumin Globulin Albumin/Globulin Ratio Amylase 10/14/17 10/14/17 10/14/17 10:00 10:00 10:13 WBC 10.0 D RBC 4.40 Hgb 12.2 L Hct 34.1 L MCV 77.5 L MCH 27.7 MCHC 35.8 RDW 16.7 H Plt Count 40 L* Gran % 74.5 H Lymph % (Auto) 16.8 L Edgar % (Auto) 8.4 H Eos % (Auto) 0.2 L Baso % (Auto) 0.1 Gran # 7.47 H Lymph # (Auto) 1.7 Edgar # (Auto) 0.8 H Eos # (Auto) 0.0 Baso # (Auto) 0.01 APTT Sodium 130 L Potassium 4.5 Chloride 96 L Carbon Dioxide 26 Anion Gap 13 BUN 12 Creatinine 0.5 L Est GFR ( Amer) > 60 Est GFR (Non-Af Amer) > 60 POC Glucose (mg/dL) Random Glucose 178 H Hemoglobin A1c Calcium 9.3 Total Bilirubin 1.5 H AST 188 H D ALT 139 H Alkaline Phosphatase 75 Troponin I Total Protein 6.4 Albumin 3.6 Globulin 2.8 Albumin/Globulin Ratio 1.3 Amylase 217 H 10/14/17 10/14/17 10/14/17 12:13 16:30 17:00 WBC RBC Hgb Hct MCV MCH MCHC RDW Plt Count Gran % Lymph % (Auto) Edgar % (Auto) Eos % (Auto) Baso % (Auto) Gran # Lymph # (Auto) Edgar # (Auto) Eos # (Auto) Baso # (Auto) APTT 64.7 H Sodium Potassium Chloride Carbon Dioxide Anion Gap BUN Creatinine Est GFR ( Amer) Est GFR (Non-Af Amer) POC Glucose (mg/dL) 132 H 125 H Random Glucose Hemoglobin A1c Calcium Total Bilirubin AST ALT Alkaline Phosphatase Troponin I Total Protein Albumin Globulin Albumin/Globulin Ratio Amylase 10/14/17 17:00 WBC RBC Hgb Hct MCV MCH MCHC RDW Plt Count Gran % Lymph % (Auto) Edgar % (Auto) Eos % (Auto) Baso % (Auto) Gran # Lymph # (Auto) Edgar # (Auto) Eos # (Auto) Baso # (Auto) APTT Sodium Potassium Chloride Carbon Dioxide Anion Gap BUN Creatinine Est GFR ( Amer) Est GFR (Non-Af Amer) POC Glucose (mg/dL) Random Glucose Hemoglobin A1c Calcium Total Bilirubin AST ALT Alkaline Phosphatase Troponin I 0.81 H* D Total Protein Albumin Globulin Albumin/Globulin Ratio Amylase Assessment & Plan (1) Thrombocytopenia Assessment and Plan: likely related to bone marrow suppression from alcohol heparin Ab sent but low suspicion for HIT okay to continue anticoagulation and antiplatelet for now Status: Acute (2) Anemia Assessment and Plan: microcytic anemia will check retic, b12, folate, ferritin to further characterize outpatient screening colonoscopy Status: Acute Priority: Medium (3) Tobacco abuse Assessment and Plan: discussed smoking cessation at length Thank you for this interesting consult. Status: Acute
--- NOTE | 2017-10-14 19:49 | CON ---
DATE: 10/14/2017 GASTROENTEROLOGY CONSULTATION REQUESTING PHYSICIAN: Kraina Healy MD REASON FOR CONSULTATION: I have been asked to see this 51-year-old male alcoholic with a history of drug abuse with multiple [facility] admissions (4) since November 2016 when he was admitted with severe pancreatitis with pseudocyst formation requiring percutaneous drainage of pancreatic collection with recurrent admissions for pancreatitis, last one being approximately two and a half months ago, now comes in with recurrent abdominal pain, nausea and vomiting, which started 3 days ago. The patient has been drinking a fifth of erika on a regular basis. He denies any hematemesis, rectal bleeding or melena. He denies any fevers or chills. CT scan of the abdomen and pelvis performed in the emergency room did not show any acute inflammatory changes in the pancreas, but did show an unchanged dilated distal pancreatic duct, which was last documented in July 2017. He continues to have severe abdominal pain with nausea. PAST MEDICAL HISTORY: Notable for chronic and acute pancreatitis, alcoholism, drug abuse, thoracic aneurysm, chronic aortic dissection, status post endovascular stent repair, hypertension and hyperlipidemia. SOCIAL HISTORY: He smokes up to a pack of cigarettes for 30 years. He drinks a fifth of erika daily. He is a former drug user, currently on methadone. FAMILY HISTORY: Noncontributory. REVIEW OF SYSTEMS: A 14-point review of systems is notable for abdominal pain, nausea, vomiting. MEDICATIONS: Currently include Lipitor, Pepcid, metoprolol, folic acid, Feosol and aspirin. PHYSICAL EXAMINATION: GENERAL: Middle-aged male lying in bed, in mild distress from abdominal pain. VITAL SIGNS: Reveal temperature of 99.2, blood pressure 145/89, heart rate of 85. HEENT: Reveals sclerae to be white. Oral mucosa is dry. NECK: Supple. CHEST: Reveal lungs to be clear. HEART: Reveals a regular rate and rhythm. ABDOMEN: Soft. Diffuse tenderness. Voluntary guarding. EXTREMITIES: Show no edema. LABORATORY DATA: From 10/13/2017 reveal white blood cell count 6.8, hemoglobin 14.1, platelet count of 87,000. Chemistries reveal elevated troponin of 2.28, potassium 5.1, BUN 34, creatinine 1.4, bicarb of 14, AST 341, ALT 222, alkaline phosphatase of 100, triglycerides 354, lipase 2152. IMPRESSION: 1. Acute alcohol-induced pancreatitis. 2. Probable chronic pancreatitis with dilated distal pancreatic duct. 3. Rule out [id number] myocardial infarction with elevated troponins. 4. Renal insufficiency. 5. Anion gap metabolic acidosis secondary to most likely alcoholic ketoacidosis. 6. Elevated liver enzymes secondary to alcoholic liver disease. RECOMMENDATIONS: 1. We will switch the patient from D5W to lactated Ringer's at 150 mL an hour. 2. Continue n.p.o. 3. Pain medications as needed. 4. Close observation for deterioration. 5. Observe for alcohol withdrawal. 6. Cardiology evaluation for NSTEMI. Javier Gonzáles MD
[2017-10-14] MEDS: Metoprolol 1 mg/ml Inj IVP SCH (22:25)
[2017-10-15] MEDS: Heparin 25,000units in 1/2NS 250 ML BAG IV SCH ×2 (00:32→12:23)
[2017-10-15] MEDS: Metoprolol 1 mg/ml Inj IVP PRN ×2 (06:11→18:20)
[2017-10-15] MEDS: Morphine 2 mg/ml ISec IVP SCH ×5 (06:11→20:18)
[2017-10-15 06:21] LABS: BASO # 0.01 K/mm3 (0.0-2.0); BASO % 0.1 % (0.0-3.0); GRAN # 6.63 (1.4-6.5); GRAN % 70.2 % (50.0-68.0); MEAN CELL VOLUME 77.6 fl (80.0-105.0); MEAN CORPUSCULAR HEMOGLOBIN 27.5 pg (25.0-35.0); MEAN CORPUSCULAR HGB CONC 35.4 g/dl (31.0-37.0); MONO # 0.8 (0.1-0.6); MONO % 8.7 % (1.0-6.0); PLATELET COUNT 46 10^3/uL (120.0-450.0); RBC 4.37 10^6/uL (3.5-6.1); RED CELL DISTRIBUTION WIDTH 16.4 % (11.5-14.5); WHITE BLOOD COUNT 9.4 10^3/ul (4.5-11.0)
[2017-10-15 07:08] LABS: ALB/GLOB RATIO 1.2 (1.1-1.8); ALBUMIN 3.5 g/dL (3.0-4.8); ALT/SGPT 128 U/L (7-56); AST/SGOT 194 U/L (17-59); BLOOD UREA NITROGEN 11 mg/dL (7-21); CALCIUM 9.7 mg/dL (8.4-10.5); GFR AFRICAN-AMERICAN > 60; GFR NON-AFRICAN AMERICAN > 60; LIPASE 667 U/L (23-300); TROPONIN I 0.51 ng/mL
[2017-10-15] MEDS: Metoprolol 1 mg/ml Inj IVP SCH ×2 (09:36→22:23)
--- NOTE | 2017-10-15 10:20 | CP.PCM.PN ---
Subjective - Date & Time of Evaluation Date of Evaluation: 10/15/17 Time of Evaluation: 09:30 - Subjective Subjective: Seen and examined by me and Dr. Brown Reason for consultation and follow up: Atypical chest pain, history of chronic pancreatitis, past medical history of polysubstance abuse,hypertension,hyperlipidemia, Aortic aneurysm repair 2015 in [facility], smoker x 30 years,current alcohol abuse 5 glasses of erika everyday, on Meth[facility]one [facility] Denies shortness of breath however complain of upper epigastric pain same pain that he is complaining for 4 days, on fall and 1:1 sitter Objective - Vital Signs/Intake and Output Vital Signs (last 24 hours): Temp Pulse Resp BP Pulse Ox 99 F 93 H 20 157/107 H 97 10/15/17 06:00 10/15/17 09:36 10/15/17 06:00 10/15/17 09:36 10/15/17 06:00 Intake and Output: 10/15/17 10/15/17 06:59 18:59 Output Total Balance - Medications Medications: Current Medications Aspirin (Ecotrin) 81 mg PO DAILY [facility] Last Admin: 10/15/17 10:08 Dose: Not Given Famotidine (Pepcid) 20 mg IVP Q12 [facility] Last Admin: 10/15/17 09:36 Dose: 20 mg Folic Acid (Folic Acid) 1 mg IVP DAILY [facility] Last Admin: 10/14/17 12:06 Dose: Not Given Hydralazine HCl (Apresoline) 10 mg IVP Q6 PRN PRN Reason: Systolic Blood Pressure Heparin Sodium/Sodium Chloride (Heparin 33657 Units/250ml 1/2 Normal Saline) 25 ,000 units in 250 mls @ 8.7 mls/hr IV .Q24H [facility]; 14 UNITS/KG/HR PRN Reason: Protocol Last Admin: 10/15/17 00:32 Dose: 17.21 units/kg/hr, 10.7 mls/hr Potassium Chloride 40 meq/ (Lactated Ringer's) 1,020 mls @ 150 mls/hr IV .Q6H48M [facility] Potassium Chloride (Potassium Chloride 10 Meq/100 Ml) 10 meq in 100 mls @ 50 mls/hr IVPB Q2H [facility] Stop: 10/15/17 11:59 Last Admin: 10/15/17 10:15 Dose: 50 mls/hr Lorazepam (Ativan) 2 mg IVP Q2H PRN; Protocol PRN Reason: Symptoms of alcohol withdrawl Last Admin: 10/14/17 20:48 Dose: 2 mg Lorazepam (Ativan) 1 mg IVP Q6H [facility] PRN Reason: Protocol Last Admin: 10/15/17 06:09 Dose: 1 mg Metoprolol Tartrate (Lopressor) 5 mg IVP Q6 PRN PRN Reason: Systolic Blood Pressure Last Admin: 10/15/17 06:11 Dose: 5 mg Metoprolol Tartrate (Lopressor) 5 mg IVP Q12 [facility] Last Admin: 10/15/17 09:36 Dose: 5 mg Morphine Sulfate (Morphine) 2 mg IVP Q4 [facility] Last Admin: 10/15/17 06:11 Dose: 2 mg Ondansetron HCl (Zofran Inj) 4 mg IVP Q4H PRN PRN Reason: Nausea/Vomiting Last Admin: 10/13/17 16:05 Dose: 4 mg - Labs Labs: 10/15/17 05:00 10/15/17 05:00 PT 10.9 SECONDS (9.4-12.5) 10/13/17 07:03 INR 0.95 (0.93-1.08) 10/13/17 07:03 APTT 121.5 Seconds (25.1-36.5) H* 10/15/17 06:30 - Constitutional Appears: No Acute Distress, Cachectic - Head Exam Head Exam: NORMAL INSPECTION - Eye Exam Eye Exam: Normal appearance Pupil Exam: NORMAL ACCOMODATION - ENT Exam ENT Exam: Mucous Membranes Dry - Neck Exam Neck Exam: Normal Inspection - Respiratory Exam Respiratory Exam: Decreased Breath Sounds, Clear to Ausculation Bilateral, NORMAL BREATHING PATTERN - Cardiovascular Exam Cardiovascular Exam: REGULAR RHYTHM, +S1, +S2 Additional comments: mid pain to touch on lower chest above the epigastric area, no tenderness - GI/Abdominal Exam GI & Abdominal Exam: Soft, Normal Bowel Sounds Additional comments: mild pain to touch epigastric area the same pain since admission - Extremities Exam Extremities Exam: Normal Capillary Refill, Normal Inspection - Neurological Exam Neurological Exam: Alert, Awake Additional comments: confused last night, placed on 1:1 sitter - Psychiatric Exam Psychiatric exam: Flat Affect - Skin Skin Exam: Dry, Intact, Normal Color, Warm Assessment and Plan - Assessment and Plan (Free Text) Assessment: Impression: Atypical chest pain, history of chronic pancreatitis, past medical history of polysubstance abuse,hypertension,hyperlipidemia, Aortic aneurysm repair 2014 , smoker x 30 years,current alcohol abuse 5 glasses of erika everyday, on Methadone Plan: Troponin trending down , 2.28/0.81/0.51 No EKG changes Potassium level WNL Blood pressure stable Continue Metropolol Hydralazine PRN for sbp>160mmhg Continue Heparin drip Had confusion and agitation yesterday,placed on 1:1 sitter and room changed by Nurses station. Continue current treatment Will follow Plan and treatment reviewed with Dr. Brown
--- NOTE | 2017-10-15 10:46 | CP.PCM.PN ---
<Quang Enriquez - Last Filed: 10/15/17 10:39> Subjective - Date & Time of Evaluation Date of Evaluation: 10/15/17 Time of Evaluation: 06:00 - Subjective Subjective: Patient seen and evaluated bedside. Patient was agitated overnight and pulled out IVS. Patient calm now, complaining of abdominal pain. No chest pain, shortness of breath, or any other complaints at this time. Objective - Vital Signs/Intake and Output Vital Signs (last 24 hours): Temp Pulse Resp BP Pulse Ox 99 F 93 H 20 157/107 H 97 10/15/17 06:00 10/15/17 09:36 10/15/17 06:00 10/15/17 09:36 10/15/17 06:00 Intake and Output: 10/15/17 10/15/17 06:59 18:59 Output Total Balance - Medications Medications: Current Medications Aspirin (Ecotrin) 81 mg PO DAILY [facility] Last Admin: 10/15/17 10:08 Dose: Not Given Famotidine (Pepcid) 20 mg IVP Q12 [facility] Last Admin: 10/15/17 09:36 Dose: 20 mg Hydralazine HCl (Apresoline) 10 mg IVP Q6 PRN PRN Reason: Systolic Blood Pressure Heparin Sodium/Sodium Chloride (Heparin 12208 Units/250ml 1/2 Normal Saline) 25 ,000 units in 250 mls @ 8.7 mls/hr IV .Q24H [facility]; 14 UNITS/KG/HR PRN Reason: Protocol Last Admin: 10/15/17 00:32 Dose: 17.21 units/kg/hr, 10.7 mls/hr Potassium Chloride 40 meq/ (Lactated Ringer's) 1,020 mls @ 150 mls/hr IV .Q6H48M [facility] Potassium Chloride (Potassium Chloride 10 Meq/100 Ml) 10 meq in 100 mls @ 50 mls/hr IVPB Q2H [facility] Stop: 10/15/17 11:59 Last Admin: 10/15/17 10:15 Dose: 50 mls/hr Folic Acid 1 mg/ Sodium (Chloride) 50.2 mls @ 150.6 mls/hr IV DAILY [facility] Lorazepam (Ativan) 2 mg IVP Q2H PRN; Protocol PRN Reason: Symptoms of alcohol withdrawl Last Admin: 10/14/17 20:48 Dose: 2 mg Lorazepam (Ativan) 1 mg IVP Q6H [facility] PRN Reason: Protocol Last Admin: 10/15/17 06:09 Dose: 1 mg Metoprolol Tartrate (Lopressor) 5 mg IVP Q6 PRN PRN Reason: Systolic Blood Pressure Last Admin: 10/15/17 06:11 Dose: 5 mg Metoprolol Tartrate (Lopressor) 5 mg IVP Q12 [facility] Last Admin: 10/15/17 09:36 Dose: 5 mg Morphine Sulfate (Morphine) 2 mg IVP Q4 [facility] Last Admin: 10/15/17 06:11 Dose: 2 mg Ondansetron HCl (Zofran Inj) 4 mg IVP Q4H PRN PRN Reason: Nausea/Vomiting Last Admin: 10/13/17 16:05 Dose: 4 mg - Labs Labs: 10/15/17 05:00 10/15/17 05:00 PT 10.9 SECONDS (9.4-12.5) 10/13/17 07:03 INR 0.95 (0.93-1.08) 10/13/17 07:03 APTT 121.5 Seconds (25.1-36.5) H* 10/15/17 06:30 - Constitutional Appears: Non-toxic, No Acute Distress - Head Exam Head Exam: ATRAUMATIC, NORMAL INSPECTION, NORMOCEPHALIC - Eye Exam Eye Exam: Normal appearance - ENT Exam ENT Exam: Mucous Membranes Moist - Respiratory Exam Respiratory Exam: Clear to Ausculation Bilateral, NORMAL BREATHING PATTERN - Cardiovascular Exam Cardiovascular Exam: REGULAR RHYTHM - GI/Abdominal Exam GI & Abdominal Exam: Soft, Tenderness - Extremities Exam Extremities Exam: absent: Joint Swelling - Neurological Exam Neurological Exam: Alert, Awake, Oriented x3 Assessment and Plan - Assessment and Plan (Free Text) Assessment: 51 black male with a past medical histoy of polysubstance abuse, hypertension, hyperlipidemia, and chronic pancreatitis presenting to the [facility] ED with complaints of abdominal pain and nausea and vomiting found to have acute pancreatitis. Patient found to have elevated troponins. Plan: Acute on chronic pancreatitis -Lipase elevated, CT abdomen shows no signs of acute pancreatitis, however evidenced clinically -NPO with ice chips -NS@200 -Lipid panel Trigl: 354 Cholesterol: 240 LDL : 69 -HgA1C : 4.9 -Morphine for pain NSTEMI -Troponin trending down , 2.28/0.81/0.51 -No EKG changes -Potassium level WNL -Blood pressure stable -Continue Metropolol -Hydralazine PRN for sbp>160mmhg -Continue Heparin drip Alcohol abuse -CIWA -Ativan and librium -Fall precautions -Seizure precautions -Aspiration precautions -Head above bed Substance abuse - 10 year history of hereon abuse, currently on, uses [employer], dosage confirmed 130mg daily @8am - monitor for withdrawal symptoms Anemia - microcytic - continue Feosol - monitor closely with daily CBC Hypertension - BP stable currently - monitor closely - hydralazine prn for sbp>160 Hyperlipidemia -Lipid panel Trigl: 354 Cholesterol: 240 LDL : 69 - lipitor on hold Thrombocytopenia -platelets 46, manual 40 -possibly secondary to alcohol abuse -continue to monitor -heme consulted, Db, follow recs -continue heparin, no signs of bleeding PPX - scds - pepcid <Karina Healy - Last Filed: 10/15/17 18:10> Objective - Vital Signs/Intake and Output Vital Signs (last 24 hours): Temp Pulse Resp BP Pulse Ox 98.2 F 82 20 138/80 97 10/15/17 12:00 10/15/17 12:00 10/15/17 12:00 10/15/17 12:46 10/15/17 06:00 Intake and Output: 10/15/17 10/15/17 06:59 18:59 Intake Total 100 Output Total Balance 100 - Medications Medications: Current Medications Aspirin (Ecotrin) 81 mg PO DAILY [facility] Last Admin: 10/15/17 10:08 Dose: Not Given Famotidine (Pepcid) 20 mg IVP Q12 [facility] Last Admin: 10/15/17 09:36 Dose: 20 mg Hydralazine HCl (Apresoline) 10 mg IVP Q6 PRN PRN Reason: Systolic Blood Pressure Heparin Sodium/Sodium Chloride (Heparin 60785 Units/250ml 1/2 Normal Saline) 25 ,000 units in 250 mls @ 8.7 mls/hr IV .Q24H [facility]; 14 UNITS/KG/HR PRN Reason: Protocol Last Admin: 10/15/17 12:23 Dose: 14.32 units/kg/hr, 8.9 mls/hr Potassium Chloride 40 meq/ (Lactated Ringer's) 1,020 mls @ 150 mls/hr IV .Q6H48M [facility] Folic Acid 1 mg/ Sodium (Chloride) 50.2 mls @ 150.6 mls/hr IV DAILY [facility] Last Admin: 10/15/17 14:47 Dose: 150.6 mls/hr Lorazepam (Ativan) 2 mg IVP Q2H PRN; Protocol PRN Reason: Symptoms of alcohol withdrawl Last Admin: 10/14/17 20:48 Dose: 2 mg Lorazepam (Ativan) 1 mg IVP Q6H [facility] PRN Reason: Protocol Last Admin: 10/15/17 12:46 Dose: 1 mg Metoprolol Tartrate (Lopressor) 5 mg IVP Q6 PRN PRN Reason: Systolic Blood Pressure Last Admin: 10/15/17 06:11 Dose: 5 mg Metoprolol Tartrate (Lopressor) 5 mg IVP Q12 [facility] Last Admin: 10/15/17 09:36 Dose: 5 mg Morphine Sulfate (Morphine) 2 mg IVP Q4 [facility] Last Admin: 10/15/17 14:25 Dose: 2 mg Ondansetron HCl (Zofran Inj) 4 mg IVP Q4H PRN PRN Reason: Nausea/Vomiting Last Admin: 10/13/17 16:05 Dose: 4 mg - Labs Labs: 10/15/17 05:00 10/15/17 05:00 PT 10.9 SECONDS (9.4-12.5) 10/13/17 07:03 INR 0.95 (0.93-1.08) 10/13/17 07:03 APTT 23.8 Seconds (25.1-36.5) L 10/15/17 15:46 Attending/Attestation - Attestation I have personally seen and examined this patient.: Yes I have fully participated in the care of the patient.: Yes I have reviewed all pertinent clinical information, including history, physical exam and plan: Yes Notes (Text): 10/15/17 18:01 attending note; Patient seen and examined with resident. Not in any acute distress. currently on one-to-one secondary to agitation/alcohol withdrawal symptoms. Continue IV Ativan. Patient is a 51 year old male with a past medical histoy of polysubstance abuse , on methadone program, hypertension, hyperlipidemia, and chronic pancreatitis presenting to the [facility] ED with complaints of abdominal pain and nausea and vomiting after heavy Alcohol abuse. Currently with epigastric pain consistent with alcohol-induced pancreatitis. Lipase is elevated. Nothing by mouth, IV fluids,IV morphine. Alcoholic ketoacidosis resolved. GI evaluation with Dr. gallardo appreciated. elevated troponin; currently trending down. Cardiology evaluation appreciated. Continue heparin drip. Chronic alcohol abuse; currently with delirium tremens. on IV Ativan. monitor closely with CIWA protocol. continue IV multivitamin and folic acid. thrombocytopenia; secondary to alcohol abuse. monitor closely. Patient had episodes of alcohol-induced bone marrow suppression with low platelets in the past. no active bleeding. Case discussed with hematology Dr. Ace in detail. continue heparin for now. Monitor closely. History of aortic aneurysm repair in the past; noncompliance with follow-up. started on IV beta aquiles. cardiac enzymes ordered for atypical chest pain. Monitor patient closely in telemetry. the diagnosis and treatment option discussed with patient's father Zia Delgado in detail. upon discharge the patient will follow up with PMD . Prognosis is poor secondary to noncompliance with follow-up and continuous alcohol abuse. 10/15/17 18:09
[2017-10-15] MEDS: Folic Acid 1 MG in Sodium Chloride 0.9% 50 ML IV SCH (14:47)
--- NOTE | 2017-10-15 15:35 | PN ---
DATE: 10/15/2017 SUBJECTIVE: The patient is lying in bed, delirious. He is in soft restraints. He is somewhat agitated. He states that his abdominal pain has improved. He denies any further nausea or vomiting. MEDICATIONS: Currently include hydralazine 10 mg IV q. 6 hours, Ativan 2 mg IV q. 2 hours p.r.n. agitation, Ecotrin 81 mg daily, folic acid 1 mg daily, Lopressor 5 mg IV q. 6 hours p.r.n., Pepcid 20 mg IV q. 12, potassium chloride IV, Zofran 4 mg IV q. 4 hours as needed for nausea or vomiting. PHYSICAL EXAMINATION GENERAL: Middle-aged male lying in bed, delirious and somewhat agitated. VITAL SIGNS: Reveal temperature of 99, blood pressure 156/106, heart rate of 98. HEENT: Reveals sclerae to be white. Conjunctivae pink. NECK: Supple. CHEST: Lungs are clear. HEART: Reveals regular rate and rhythm. ABDOMEN: Soft, mild diffuse tenderness. No rebound, no guarding. EXTREMITIES: Show no edema. LABORATORY DATA: Reveals white blood cell count 9.4, hemoglobin of 12, platelet count of 40,000. Chemistries reveal potassium of 3.1, BUN 11, creatinine 0.5, AST 194, ALT 128, lipase is 667, amylase is 172. IMPRESSION: 1. Delirium tremens. 2. Alcohol-induced acute pancreatitis on chronic pancreatitis with a chronically dilated pancreatic duct in the tail of the pancreas on CAT scan. 3. Thrombocytopenia secondary to alcohol use. 4. Alcoholic hepatitis. 5. History of aortic an 6. Elevated troponins, rule out non-ST elevation myocardial infarction. RECOMMENDATIONS: 1. Continue IV fluids, Ativan p.r.n. agitation. 2. Continue close monitoring in view of his delirium tremens. 3. We will advance the patient to a clear liquid diet as tolerated. 4. Await Cardiology evaluation for NSTEMI. Javier Gonzáles MD [email or web address]
[2017-10-15 18:43] LABS: FOLATE > 20.0 ng/mL
--- NOTE | 2017-10-15 21:12 | CP.PCM.PN ---
Subjective - Date & Time of Evaluation Date of Evaluation: 10/15/17 Time of Evaluation: 18:00 - Subjective Subjective: Agitated overnight, no complaints. No abnormal bleeding and bruising. Objective - Vital Signs/Intake and Output Vital Signs (last 24 hours): Temp Pulse Resp BP Pulse Ox 98.3 F 113 H 19 158/100 H 95 10/15/17 18:00 10/15/17 18:20 10/15/17 18:00 10/15/17 18:20 10/15/17 18:00 Intake and Output: 10/15/17 10/16/17 18:59 06:59 Intake Total 270 Balance 270 - Medications Medications: Current Medications Aspirin (Ecotrin) 81 mg PO DAILY [facility] Last Admin: 10/15/17 10:08 Dose: Not Given Famotidine (Pepcid) 20 mg IVP Q12 [facility] Last Admin: 10/15/17 09:36 Dose: 20 mg Hydralazine HCl (Apresoline) 10 mg IVP Q6 PRN PRN Reason: Systolic Blood Pressure Heparin Sodium/Sodium Chloride (Heparin 65714 Units/250ml 1/2 Normal Saline) 25 ,000 units in 250 mls @ 8.7 mls/hr IV .Q24H [facility]; 14 UNITS/KG/HR PRN Reason: Protocol Last Titration: 10/15/17 17:50 Dose: 18.18 units/kg/hr, 11.297 mls/hr Potassium Chloride 40 meq/ (Lactated Ringer's) 1,020 mls @ 150 mls/hr IV .Q6H48M [facility] Folic Acid 1 mg/ Sodium (Chloride) 50.2 mls @ 150.6 mls/hr IV DAILY [facility] Last Admin: 10/15/17 14:47 Dose: 150.6 mls/hr Lorazepam (Ativan) 2 mg IVP Q2H PRN; Protocol PRN Reason: Symptoms of alcohol withdrawl Last Admin: 10/15/17 20:19 Dose: 2 mg Lorazepam (Ativan) 1 mg IVP Q6H [facility] PRN Reason: Protocol Last Admin: 10/15/17 18:19 Dose: 1 mg Metoprolol Tartrate (Lopressor) 5 mg IVP Q6 PRN PRN Reason: Systolic Blood Pressure Last Admin: 10/15/17 18:20 Dose: 5 mg Metoprolol Tartrate (Lopressor) 5 mg IVP Q12 [facility] Last Admin: 10/15/17 09:36 Dose: 5 mg Morphine Sulfate (Morphine) 2 mg IVP Q4 [facility] Last Admin: 10/15/17 20:18 Dose: 2 mg Ondansetron HCl (Zofran Inj) 4 mg IVP Q4H PRN PRN Reason: Nausea/Vomiting Last Admin: 10/13/17 16:05 Dose: 4 mg - Labs Labs: 10/15/17 05:00 10/15/17 05:00 PT 10.9 SECONDS (9.4-12.5) 10/13/17 07:03 INR 0.95 (0.93-1.08) 10/13/17 07:03 APTT 23.8 Seconds (25.1-36.5) L 10/15/17 15:46 - Head Exam Head Exam: ATRAUMATIC - ENT Exam ENT Exam: Mucous Membranes Dry - Respiratory Exam Respiratory Exam: NORMAL BREATHING PATTERN - Cardiovascular Exam Cardiovascular Exam: +S1, +S2 - GI/Abdominal Exam GI & Abdominal Exam: Normal Bowel Sounds Assessment and Plan (1) Thrombocytopenia Assessment & Plan: likely secondary to alcohol induced bone marrow suppression f/u heparin Ab - low suspicion for HIT; okay to cont. heparin no abnormal bleeding and bruising Status: Acute (2) Anemia Assessment & Plan: anemia of chronic disease Status: Acute (3) Tobacco abuse Assessment & Plan: smoking cessation Status: Acute
--- NOTE | 2017-10-15 23:05 | CARD ---
APPROVED REPORT EKG Measurement Heart [id number] <Conclusion> Normal sinus rhythm Consider lateral ischemia Prolonged QT Abnormal ECG
[2017-10-16] MEDS: Morphine 2 mg/ml ISec IVP SCH ×4 (01:58→12:10)
[2017-10-16] MEDS: Potassium Chloride 40 MEQ in Lactated Ringer's 1,000 ML IV SCH ×3 (01:59→18:28)
[2017-10-16 07:05] LABS: BASO # 0.01 K/mm3 (0.0-2.0); BASO % 0.1 % (0.0-3.0); EOS % 0.2 % (1.5-5.0); GRAN # 7.68 (1.4-6.5); GRAN % 71.1 % (50.0-68.0); HEMOGLOBIN 12.6 g/dL (14.0-18.0); LYMPH # 2.2 (1.2-3.4); LYMPH % 20.7 % (22.0-35.0); MEAN CELL VOLUME 78.4 fl (80.0-105.0); MEAN CORPUSCULAR HEMOGLOBIN 27.5 pg (25.0-35.0); MONO # 0.9 (0.1-0.6); MONO % 7.9 % (1.0-6.0); PLATELET COUNT 54 10^3/uL (120.0-450.0); RBC 4.59 10^6/uL (3.5-6.1); RED CELL DISTRIBUTION WIDTH 16.5 % (11.5-14.5); WHITE BLOOD COUNT 10.8 10^3/ul (4.5-11.0)
[2017-10-16 08:55] LABS: ALB/GLOB RATIO 1.2 (1.1-1.8); ALBUMIN 3.5 g/dL (3.0-4.8); ALT/SGPT 111 U/L (7-56); AST/SGOT 141 U/L (17-59); BLOOD UREA NITROGEN 12 mg/dL (7-21); GFR AFRICAN-AMERICAN > 60; GFR NON-AFRICAN AMERICAN > 60; LIPASE 620 U/L (23-300)
[2017-10-16] MEDS: Folic Acid 1 MG in Sodium Chloride 0.9% 50 ML IV SCH (10:47)
[2017-10-16] MEDS: Metoprolol 1 mg/ml Inj IVP SCH (10:47)
[2017-10-16] MEDS: Heparin 25,000units in 1/2NS 250 ML BAG IV SCH (10:56)
[2017-10-16] MEDS ORDERED: Metoprolol Succinate 25 mg XL Tab PO SCH (11:15)
--- NOTE | 2017-10-16 12:45 | PN ---
DATE: 10/16/2017 SUBJECTIVE: The patient is lying in bed. He is less delirious and agitated. He denies any nausea, vomiting. He is tolerating clear liquids. PHYSICAL EXAMINATION: VITAL SIGNS: Reveal a temperature of 97.5, blood pressure 149/100, heart rate of 99. HEENT: Reveals sclerae to be white. Conjunctivae pink. NECK: Supple. CHEST: Reveal lungs to be clear. HEART: Reveals a regular rate and rhythm. ABDOMEN: Soft. Mild diffuse tenderness. No rebound. No guarding. EXTREMITIES: Show no edema. LABORATORY DATA: Reveal white blood cell count 10.8, hemoglobin 10.6, platelet count 40,000. Chemistries reveal amylase 195, lipase 620, total bilirubin 1.4. AST, ALT 141 and 111. IMPRESSION: 1. Acute on chronic pancreatitis. 2. Alcoholic hepatitis. 3. Thrombocytopenia secondary to alcohol use. 4. Delirium tremens. 5. Elevated troponins. RECOMMENDATIONS: 1. Continue clear liquid diet for now. We will advance when his abdominal pain improves. 2. Continue close observation for DTs. 3. Follow up platelet count. Javier Gonzáles MD
[2017-10-16] MEDS ORDERED: Heparin25000 units/250ml 1/2NS 25,000 UNITS/250 ML BAG IV SCH (14:30)
--- NOTE | 2017-10-16 14:56 | CP.PCM.PN ---
<Alfonzo Shi - Last Filed: 10/16/17 14:40> Subjective - Date & Time of Evaluation Date of Evaluation: 10/16/17 Time of Evaluation: 14:40 - Subjective Subjective: Medicine Progress Note: Patient seen and assessed at bedside with 1:1 observer present at bedside. Patient required one dose of Ativan overnight for elevated alcohol withdrawal symptoms. He denies any complaints at this time. He is oriented to person, place and time. He denies any fever, chills, headache, chest pain, SOB, abdominal pain, N/V/D/C, urinary changes or new skin changes. Objective - Vital Signs/Intake and Output Vital Signs (last 24 hours): Temp Pulse Resp BP Pulse Ox 97.7 F 99 H 20 143/107 H 98 10/16/17 12:00 10/16/17 12:09 10/16/17 12:00 10/16/17 12:09 10/16/17 06:00 Intake and Output: 10/16/17 10/16/17 06:59 18:59 Intake Total 0 80 Output Total 200 Balance 0 -120 - Medications Medications: Current Medications Aspirin (Ecotrin) 81 mg PO DAILY [facility] Last Admin: 10/16/17 10:47 Dose: 81 mg Diphenhydramine HCl (Benadryl) 25 mg PO HS PRN PRN Reason: Insomnia Famotidine (Pepcid) 20 mg IVP Q12 [facility] Last Admin: 10/16/17 10:47 Dose: 20 mg Hydralazine HCl (Apresoline) 10 mg IVP Q6 PRN PRN Reason: Systolic Blood Pressure Last Admin: 10/16/17 12:09 Dose: 10 mg Heparin Sodium/Sodium Chloride (Heparin 49362 Units/250ml 1/2 Normal Saline) 25 ,000 units in 250 mls @ 8.7 mls/hr IV .Q24H [facility]; 14 UNITS/KG/HR PRN Reason: Protocol Last Admin: 10/16/17 10:56 Dose: 17.18 units/kg/hr, 10.676 mls/hr Potassium Chloride 40 meq/ (Lactated Ringer's) 1,020 mls @ 150 mls/hr IV .Q6H48M [facility] Last Admin: 10/16/17 10:49 Dose: 150 mls/hr Folic Acid 1 mg/ Sodium (Chloride) 50.2 mls @ 150.6 mls/hr IV DAILY [facility] Last Admin: 10/16/17 10:47 Dose: 150.6 mls/hr Lorazepam (Ativan) 2 mg IVP Q2H PRN; Protocol PRN Reason: Symptoms of alcohol withdrawl Last Admin: 10/15/17 22:23 Dose: 2 mg Lorazepam (Ativan) 0.5 mg IVP Q6H [facility] PRN Reason: Protocol Last Admin: 10/16/17 14:14 Dose: 0.5 mg Metoprolol Succinate (Toprol Xl) 25 mg PO BID [facility] Metoprolol Tartrate (Lopressor) 5 mg IVP Q6 PRN PRN Reason: Systolic Blood Pressure Last Admin: 10/15/17 18:20 Dose: 5 mg Morphine Sulfate (Morphine) 2 mg IVP Q4 PRN PRN Reason: Pain, moderate (4-7) Ondansetron HCl (Zofran Inj) 4 mg IVP Q4H PRN PRN Reason: Nausea/Vomiting Last Admin: 10/13/17 16:05 Dose: 4 mg - Labs Labs: 10/16/17 06:00 10/16/17 08:00 PT 10.9 SECONDS (9.4-12.5) 10/13/17 07:03 INR 0.95 (0.93-1.08) 10/13/17 07:03 APTT 41.4 Seconds (25.1-36.5) H 10/16/17 09:00 - Constitutional Appears: Non-toxic, No Acute Distress - Head Exam Head Exam: ATRAUMATIC, NORMOCEPHALIC - Eye Exam Eye Exam: EOMI, Normal appearance Pupil Exam: NORMAL ACCOMODATION, PERRL - ENT Exam ENT Exam: Mucous Membranes Moist, Normal Exam - Neck Exam Neck Exam: absent: Lymphadenopathy - Respiratory Exam Respiratory Exam: Clear to Ausculation Bilateral, NORMAL BREATHING PATTERN. absent: Rales, Rhonchi, Wheezes - Cardiovascular Exam Cardiovascular Exam: REGULAR RHYTHM, RRR, +S1, +S2. absent: Bradycardia, Tachycardia, Clicks, Diastolic murmur, Gallop, Irregular Rhythm, JVD, Rubs, +S4 , Murmur - GI/Abdominal Exam GI & Abdominal Exam: Soft, Normal Bowel Sounds. absent: Tenderness - Extremities Exam Extremities Exam: Normal Capillary Refill, Normal Inspection. absent: Calf Tenderness, Joint Swelling, Pedal Edema, Tenderness - Neurological Exam Neurological Exam: Alert, Awake, Oriented x3 - Psychiatric Exam Psychiatric exam: Normal Affect, Normal Mood - Skin Skin Exam: Dry, Intact, Normal Color, Warm Assessment and Plan - Assessment and Plan (Free Text) Assessment: 51 year old AA male with a past medical histoy significant for polysubstance abuse, HTN, HLD and chronic pancreatitis who presented with complaints of abdominal pain and nausea/vomiting. He was found to have acute pancreatitis. Patient also found to have elevated troponins. He was started on IV fluids, Heparin drip and pain control. He was also placed on precautions for alcohol withdrawal. He was noted to pancytopenia. Cardiology and Heme/Onc consulted. Plan: 1. Acute on Chronic Pancreatitis -CT Abdomen/Pelvis showed no signs of acute pancreatitis -Lipase downtrending from admission and currently 620 -LR at 150mls/hr -Continue Morphine 2mg IVP Q4H PRN for pain control -Continue Zofran PRN for N/V -Clear liquid diet, will advance as tolerated -GI consulted, all recommendations appreciated 2. NSTEMI -Troponin trended downwards and is currently WNL -EKG showing no significant changes or ST elevations/T wave inversions -Continue Heparin drip -Hydralazine PRN for SBP>160mmHg -Cardiology consulted, all recommendations appreciated 3. Alcohol Abuse/Withdrawal -Tapered Ativan to 0.5mg IVP Q6H -Continue Ativan 2mg IVP Q2H PRN -CIWA assessments Q4 -Seizure, Fall and Aspiration precautions -Cessation advised 4. Iron Deficiency Anemia -Continue Feosol -Continue to monitor with daily CBC's 5. Pancytopenia -Likely secondary to alcohol abuse -HIT Ab pending -Heme/Onc consulted, all recommendations pending 6. History of HLD -Lipitor currently held in setting of transaminitis 7. History of HTN -Continue scheduled and as needed Metoprolol -Continue as needed Hydralazine GI Prophylaxis: Pepcid DVT Prophylaxis: Heparin drip and SCD's Patient seen and case discussed with attending, Dr. Kevin Gomez. <Kevin Gomez - Last Filed: 10/16/17 16:41> Objective - Vital Signs/Intake and Output Vital Signs (last 24 hours): Temp Pulse Resp BP Pulse Ox 97.7 F 99 H 20 143/107 H 98 10/16/17 12:00 10/16/17 12:09 10/16/17 12:00 10/16/17 12:09 10/16/17 06:00 Intake and Output: 10/16/17 10/16/17 06:59 18:59 Intake Total 0 80 Output Total 200 Balance 0 -120 - Medications Medications: Current Medications Aspirin (Ecotrin) 81 mg PO DAILY [facility] Last Admin: 10/16/17 10:47 Dose: 81 mg Diphenhydramine HCl (Benadryl) 25 mg PO HS PRN PRN Reason: Insomnia Famotidine (Pepcid) 20 mg IVP Q12 [facility] Last Admin: 10/16/17 10:47 Dose: 20 mg Hydralazine HCl (Apresoline) 10 mg IVP Q6 PRN PRN Reason: Systolic Blood Pressure Last Admin: 10/16/17 12:09 Dose: 10 mg Potassium Chloride 40 meq/ (Lactated Ringer's) 1,020 mls @ 150 mls/hr IV .Q6H48M [facility] Last Admin: 10/16/17 10:49 Dose: 150 mls/hr Folic Acid 1 mg/ Sodium (Chloride) 50.2 mls @ 150.6 mls/hr IV DAILY [facility] Last Admin: 10/16/17 10:47 Dose: 150.6 mls/hr Heparin Sodium/Sodium Chloride (Heparin 81201 Units/250ml 1/2 Normal Saline) 25 ,000 units in 250 mls @ 10.52 mls/hr IV .[id number] [facility]; 17.18 UNITS/KG/HR PRN Reason: Protocol Last Admin: 10/16/17 15:03 Dose: 17.18 units/kg/hr, 10.52 mls/hr Lorazepam (Ativan) 2 mg IVP Q2H PRN; Protocol PRN Reason: Symptoms of alcohol withdrawl Last Admin: 10/15/17 22:23 Dose: 2 mg Lorazepam (Ativan) 0.5 mg IVP Q6H [facility] PRN Reason: Protocol Last Admin: 10/16/17 14:14 Dose: 0.5 mg Metoprolol Succinate (Toprol Xl) 25 mg PO BID [facility] Metoprolol Tartrate (Lopressor) 5 mg IVP Q6 PRN PRN Reason: Systolic Blood Pressure Last Admin: 10/15/17 18:20 Dose: 5 mg Morphine Sulfate (Morphine) 2 mg IVP Q4 PRN PRN Reason: Pain, moderate (4-7) Ondansetron HCl (Zofran Inj) 4 mg IVP Q4H PRN PRN Reason: Nausea/Vomiting Last Admin: 10/13/17 16:05 Dose: 4 mg - Labs Labs: 10/16/17 06:00 10/16/17 08:00 PT 10.9 SECONDS (9.4-12.5) 10/13/17 07:03 INR 0.95 (0.93-1.08) 10/13/17 07:03 APTT 41.4 Seconds (25.1-36.5) H 10/16/17 09:00 Attending/Attestation - Attestation I have personally seen and examined this patient.: Yes I have fully participated in the care of the patient.: Yes I have reviewed all pertinent clinical information, including history, physical exam and plan: Yes Notes (Text): I have seen and examined the patient at bedside. Agree with the above note with the following additions/ exceptions: Briefly this is 51 year old male with history of polysubstance abuse, on methadone program, hypertension, hyperlipidemia, and chronic pancreatitis who was admitted for abdominal pain, nausea, vomiting and found to have alcohol induced acute pancreatitis. He was also found to have alcohol withdrawal syndrome NSTEMI and chronic thrombocytopenia. Today he reports improvement in abdominal pain however he reports some epigastric tenderness. Denies any nausea or vomiting. He was able to tolerate clear liquid diet. Decrease morphine. As he was somnolent in the morning will decrease ativan to 0.5 q6. Continue CIWA protocol. Start MVI, folic acid and thiamine. He also has NSTEMI. Continue aspirin, heparin drip and metoprolol. He has chronic thrombocytopenia secondary to alcohol abuse. There is no active bleeding. Alcohol cessation counselling provided. Upon discharge patient will follow up with PMD Dr Galvez. Dr Kevin Gomez
--- NOTE | 2017-10-16 15:39 | PN ---
DATE: 10/16/2017 SUBJECTIVE: The patient is chest pain-free this morning. PHYSICAL EXAMINATION: VITAL SIGNS: Blood pressure is 143/100, heart rate is in the 90s. NECK: Negative JVD. LUNGS: Without rales. HEART: Reveals S1, S2. EXTREMITIES: Without edema. LABORATORY DATA: Hemoglobin is 12.6. Chemistries, BUN and creatinine unremarkable. LFTs are elevated, lipase remains elevated. Troponins on a downward trend. IMPRESSION: 1. Alcoholic withdrawal. 2. Pancreatitis. 3. Non-ST elevation myocardial infarction. 4. Multi drug abuse. 5. Hypertension. Given these findings, the patient is recovering from his acute pancreatitis. We will increase his beta-blockers to 25 b.i.d. We will treat his non-STEMI medically. Gwyn Monzon MD
[2017-10-16] MEDS: Morphine 2 mg/ml ISec IVP PRN ×2 (16:17→20:10)
[2017-10-16] MEDS: Metoprolol Succinate 25 mg XL Tab PO SCH (17:53)
--- NOTE | 2017-10-16 21:40 | CP.PCM.PN ---
Subjective - Date & Time of Evaluation Date of Evaluation: 10/16/17 Time of Evaluation: 18:15 - Subjective Subjective: Appears comfortable Objective - Vital Signs/Intake and Output Vital Signs (last 24 hours): Temp Pulse Resp BP Pulse Ox 98.2 F 97 H 20 112/70 95 10/16/17 18:00 10/16/17 18:00 10/16/17 18:00 10/16/17 18:00 10/16/17 18:00 Intake and Output: 10/16/17 10/17/17 18:59 06:59 Intake Total 80 Output Total 200 Balance -120 - Medications Medications: Current Medications Aspirin (Ecotrin) 81 mg PO DAILY [facility] Last Admin: 10/16/17 10:47 Dose: 81 mg Diphenhydramine HCl (Benadryl) 25 mg PO HS PRN PRN Reason: Insomnia Famotidine (Pepcid) 20 mg IVP Q12 [facility] Last Admin: 10/16/17 10:47 Dose: 20 mg Folic Acid (Folic Acid) 1 mg PO DAILY [facility] Hydralazine HCl (Apresoline) 10 mg IVP Q6 PRN PRN Reason: Systolic Blood Pressure Last Admin: 10/16/17 12:09 Dose: 10 mg Potassium Chloride 40 meq/ (Lactated Ringer's) 1,020 mls @ 150 mls/hr IV .Q6H48M [facility] Last Admin: 10/16/17 18:28 Dose: 150 mls/hr Heparin Sodium/Sodium Chloride (Heparin 43110 Units/250ml 1/2 Normal Saline) 25 ,000 units in 250 mls @ 10.52 mls/hr IV .[id number] [facility]; 17.18 UNITS/KG/HR PRN Reason: Protocol Last Admin: 10/16/17 15:03 Dose: 17.18 units/kg/hr, 10.52 mls/hr Lorazepam (Ativan) 2 mg IVP Q2H PRN; Protocol PRN Reason: Symptoms of alcohol withdrawl Last Admin: 10/16/17 21:21 Dose: 2 mg Lorazepam (Ativan) 0.5 mg IVP Q6H [facility] PRN Reason: Protocol Last Admin: 10/16/17 17:52 Dose: 0.5 mg Metoprolol Succinate (Toprol Xl) 25 mg PO BID [facility] Last Admin: 10/16/17 17:53 Dose: 25 mg Metoprolol Tartrate (Lopressor) 5 mg IVP Q6 PRN PRN Reason: Systolic Blood Pressure Last Admin: 10/15/17 18:20 Dose: 5 mg Morphine Sulfate (Morphine) 2 mg IVP Q4 PRN PRN Reason: Pain, moderate (4-7) Last Admin: 10/16/17 20:10 Dose: 2 mg Multivitamins (Thera Tab) 1 tab PO 0800 [facility] Ondansetron HCl (Zofran Inj) 4 mg IVP Q4H PRN PRN Reason: Nausea/Vomiting Last Admin: 10/13/17 16:05 Dose: 4 mg Thiamine HCl (Vitamin B1 Tab) 100 mg PO DAILY [facility] - Labs Labs: 10/16/17 06:00 10/16/17 08:00 PT 10.9 SECONDS (9.4-12.5) 10/13/17 07:03 INR 0.95 (0.93-1.08) 10/13/17 07:03 APTT 71.4 Seconds (25.1-36.5) H 10/16/17 16:51 - Head Exam Head Exam: ATRAUMATIC - Eye Exam Eye Exam: Normal appearance - ENT Exam ENT Exam: Mucous Membranes Dry - Respiratory Exam Respiratory Exam: NORMAL BREATHING PATTERN - Cardiovascular Exam Cardiovascular Exam: +S1, +S2 - GI/Abdominal Exam GI & Abdominal Exam: Normal Bowel Sounds Assessment and Plan (1) Thrombocytopenia Assessment & Plan: improving secondary to alcohol abuse Status: Acute (2) Anemia Assessment & Plan: anemia of chronic disease no iron/b12/folate deficiency Status: Acute (3) Tobacco abuse Assessment & Plan: smoking cessation Status: Acute
[2017-10-17] MEDS: Morphine 2 mg/ml ISec IVP PRN ×3 (00:06→15:51)
[2017-10-17] MEDS: Metoprolol 1 mg/ml Inj IVP PRN (00:53)
[2017-10-17] MEDS: Potassium Chloride 40 MEQ in Lactated Ringer's 1,000 ML IV SCH ×5 (00:54→23:04)
[2017-10-17 07:23] LABS: BASO # 0.02 K/mm3 (0.0-2.0); BASO % 0.2 % (0.0-3.0); EOS # 0.1 (0.0-0.7); EOS % 0.6 % (1.5-5.0); GRAN # 6.52 (1.4-6.5); GRAN % 67.4 % (50.0-68.0); LYMPH # 2.2 (1.2-3.4); LYMPH % 23.1 % (22.0-35.0); MEAN CELL VOLUME 78.7 fl (80.0-105.0); MEAN CORPUSCULAR HEMOGLOBIN 27.3 pg (25.0-35.0); MEAN CORPUSCULAR HGB CONC 34.7 g/dl (31.0-37.0); MEAN PLATELET VOLUME 11.3 fl (7.0-11.0); MONO # 0.8 (0.1-0.6); MONO % 8.7 % (1.0-6.0); RBC 3.66 10^6/uL (3.5-6.1); RED CELL DISTRIBUTION WIDTH 16.2 % (11.5-14.5); WHITE BLOOD COUNT 9.7 10^3/ul (4.5-11.0)
[2017-10-17 07:26] LABS: BARBITURATES, UR NEGATIVE (NEGATIVE); BENZODIAZEPINES, UR NEGATIVE (NEGATIVE); OPIATES, UR POSITIVE (NEGATIVE); PHENCYCLIDINE, UR NEGATIVE (NEGATIVE)
[2017-10-17] MEDS ORDERED: Multivitamin Therapeutic Tab PO SCH (08:00)
[2017-10-17 09:49] LABS: ALB/GLOB RATIO 1.2 (1.1-1.8); ALBUMIN 3.3 g/dL (3.0-4.8); ALT/SGPT 100 U/L (7-56); AST/SGOT 110 U/L (17-59); BLOOD UREA NITROGEN 10 mg/dL (7-21); CALCIUM 10.1 mg/dL (8.4-10.5); GFR AFRICAN-AMERICAN > 60; GFR NON-AFRICAN AMERICAN > 60; LIPASE 688 U/L (23-300)
[2017-10-17] MEDS: Metoprolol Succinate 25 mg XL Tab PO SCH ×2 (10:15→18:46)
--- NOTE | 2017-10-17 10:51 | CARD ---
APPROVED REPORT EXAM: Two-dimensional and M-mode echocardiogram with Doppler and color Doppler. Other Information Quality : FairRhythm : INDICATION Chest Pain 2D DIMENSIONS Left Atrium (2D)2.5 (1.6-4.0cm)IVSd1.3 (0.7-1.1cm) LVDd3.3 (3.9-5.9cm)PWd1.3 (0.7-1.1cm) LVDs2.2 (2.5-4.0cm)FS (%) 32.1 % LVEF (%)61.0 (>50%) M-Mode DIMENSIONS Aortic Root3.70 (2.2-3.7cm)Aortic Cusp Exc.1.80 (1.5-2.0cm) Aortic Valve AoV Peak Cllnbizz537.0cm/Marcelino Peak GR.6mmHg Mitral Valve MV E Nrxcobzb83.0cm/sMV A Qbwmwxdb13.8cm/sE/A ratio0.5 TDI E/Lateral E'0.0E/Medial E'0.0 Tricuspid Valve TR Peak [id number]/sRAP [id number] Peak Gr.20mmHg [id number] LEFT VENTRICLE The left ventricle is normal size. There is mild concentric left ventricular hypertrophy. The left ventricular function is normal. The left ventricular ejection fraction is within the normal range. There is normal LV segmental wall motion. RIGHT VENTRICLE The right ventricle is normal size. ATRIA The left atrium size is normal. The right atrium size is normal. The interatrial septum is intact with no evidence for an atrial septal defect. AORTIC VALVE The aortic valve is normal in structure. MITRAL VALVE The mitral valve is normal in structure. TRICUSPID VALVE The tricuspid valve is normal in structure. There is mild tricuspid regurgitation. PULMONIC VALVE The pulmonic valve is not well visualized. GREAT VESSELS The aortic root is normal in size. PERICARDIAL EFFUSION There is no pleural effusion. <Conclusion> The left ventricle is normal size. There is mild concentric left ventricular hypertrophy. The left ventricular function is normal. There is mild tricuspid regurgitation.
--- NOTE | 2017-10-17 13:34 | CP.PCM.PN ---
<Alfonzo hSi - Last Filed: 10/17/17 13:30> Subjective - Date & Time of Evaluation Date of Evaluation: 10/17/17 Time of Evaluation: 13:30 - Subjective Subjective: Medicine Progress Note: Patient seen and assessed at bedside with 1:1 observer present at bedside. No acute events overnight noted by patient or nursing staff. Patient denies any complaints at this time. He denies fever, chills, headache, chest pain, SOB, abdominal pain, N/V/D/C, urinary changes or any new skin changes. Objective - Vital Signs/Intake and Output Vital Signs (last 24 hours): Temp Pulse Resp BP Pulse Ox 98.9 F 97 H 18 121/77 98 10/17/17 12:00 10/17/17 12:00 10/17/17 12:00 10/17/17 12:00 10/17/17 12:00 Intake and Output: 10/17/17 10/17/17 06:59 18:59 Intake Total 1857 Balance 1857 - Medications Medications: Current Medications Aspirin (Ecotrin) 81 mg PO DAILY [facility] Last Admin: 10/17/17 10:14 Dose: 81 mg Diphenhydramine HCl (Benadryl) 25 mg PO HS PRN PRN Reason: Insomnia Famotidine (Pepcid) 20 mg IVP Q12 [facility] Last Admin: 10/17/17 10:17 Dose: 20 mg Folic Acid (Folic Acid) 1 mg PO DAILY [facility] Last Admin: 10/17/17 10:15 Dose: 1 mg Hydralazine HCl (Apresoline) 10 mg IVP Q6 PRN PRN Reason: Systolic Blood Pressure Last Admin: 10/16/17 12:09 Dose: 10 mg Potassium Chloride 40 meq/ (Lactated Ringer's) 1,020 mls @ 150 mls/hr IV .Q6H48M [facility] Last Admin: 10/17/17 09:14 Dose: 150 mls/hr Lorazepam (Ativan) 2 mg IVP Q2H PRN; Protocol PRN Reason: Symptoms of alcohol withdrawl Last Admin: 10/17/17 03:02 Dose: 2 mg Metoprolol Succinate (Toprol Xl) 25 mg PO BID [facility] Last Admin: 10/17/17 10:15 Dose: 25 mg Metoprolol Tartrate (Lopressor) 5 mg IVP Q6 PRN PRN Reason: Systolic Blood Pressure Last Admin: 10/17/17 00:53 Dose: 5 mg Morphine Sulfate (Morphine) 2 mg IVP Q4 PRN PRN Reason: Pain, moderate (4-7) Last Admin: 10/17/17 04:22 Dose: 2 mg Multivitamins/Minerals (Therapeutic-M Tab) 1 tab PO 0800 [facility] Ondansetron HCl (Zofran Inj) 4 mg IVP Q4H PRN PRN Reason: Nausea/Vomiting Last Admin: 10/13/17 16:05 Dose: 4 mg Thiamine HCl (Vitamin B1 Tab) 100 mg PO DAILY [facility] Last Admin: 10/17/17 10:15 Dose: 100 mg - Labs Labs: 10/17/17 06:45 10/17/17 06:45 PT 10.9 SECONDS (9.4-12.5) 10/13/17 07:03 INR 0.95 (0.93-1.08) 10/13/17 07:03 APTT 73.3 Seconds (25.1-36.5) H 10/17/17 06:45 - Constitutional Appears: Non-toxic, No Acute Distress - Head Exam Head Exam: ATRAUMATIC, NORMOCEPHALIC - Eye Exam Eye Exam: EOMI, Normal appearance Pupil Exam: NORMAL ACCOMODATION, PERRL - ENT Exam ENT Exam: Mucous Membranes Moist, Normal Exam - Neck Exam Neck Exam: absent: Lymphadenopathy - Respiratory Exam Respiratory Exam: Clear to Ausculation Bilateral, NORMAL BREATHING PATTERN. absent: Accessory Muscle Use, Chest Wall Tenderness, Decreased Breath Sounds, Prolonged Expiratory Phase, Rales, Rhonchi, Wheezes, Respiratory Distress, Stridor - Cardiovascular Exam Cardiovascular Exam: REGULAR RHYTHM, RRR, +S1, +S2. absent: Bradycardia, Tachycardia, Clicks, Diastolic murmur, Gallop, Irregular Rhythm, JVD, Rubs, +S4 , Murmur - GI/Abdominal Exam GI & Abdominal Exam: Soft, Normal Bowel Sounds. absent: Distended, Firm, Guarding, Rigid, Tenderness, Rebound - Extremities Exam Extremities Exam: Full ROM, Normal Capillary Refill, Normal Inspection. absent : Calf Tenderness, Joint Swelling, Pedal Edema, Tenderness - Back Exam Back Exam: NORMAL INSPECTION - Neurological Exam Neurological Exam: Alert, Awake, CN II-XII Intact, Oriented x3 - Psychiatric Exam Psychiatric exam: Normal Affect, Normal Mood - Skin Skin Exam: Dry, Intact, Normal Color, Warm Assessment and Plan - Assessment and Plan (Free Text) Assessment: 51 year old AA male with a past medical histoy significant for polysubstance abuse, HTN, HLD and chronic pancreatitis who presented with complaints of abdominal pain and nausea/vomiting. He was found to have acute pancreatitis. Patient also found to have elevated troponins. He was started on IV fluids, Heparin drip, which has since been discontinued, and pain control. He was also placed on precautions for alcohol withdrawal. He was noted to pancytopenia. Cardiology and Heme/Onc consulted. Plan: 1. Acute on Chronic Pancreatitis -Lipase downtrending from admission -Continue LR at 150mls/hr -Continued Morphine 2mg IVP Q4H PRN for pain control -Continue Zofran PRN for N/V -Full liquid diet, will advance as tolerated -GI consulted, all recommendations appreciated 2. NSTEMI -Troponin trended downwards and is currently WNL -EKG showing no significant changes or ST elevations/T wave inversions -Discontinued Heparin drip -Continue ASA 81mg PO daily -Continue Hydralazine PRN for SBP>160mmHg -Cardiology consulted, all recommendations appreciated 3. Alcohol Abuse/Withdrawal -Discontinued Ativan to 0.5mg IVP Q6H -Continue Ativan 2mg IVP Q2H PRN -Folic Acid, MV and Thiamine PO supplementation -CIWA assessments Q4 -Seizure, Fall and Aspiration precautions -Cessation advised -PT/OT Evaluation and Treatment pending 4. History of Polysubstance Abuse -Confirmed dosage of outpatient Methadone at 130mg daily with [facility] in -Will need to titrate from 30mg daily to his previous daily dose -Started Methadone 30mg -Will reevaluate daily and taper as indicated 5. Iron Deficiency Anemia -Continue Feosol -Continue to monitor with daily CBC's 6. Pancytopenia -Likely secondary to alcohol abuse -HIT Ab pending -Heme/Onc consulted, all recommendations pending 7. History of HLD -Lipitor currently held in setting of transaminitis 8. History of HTN -Continue scheduled and as needed Metoprolol -Continue as needed Hydralazine GI Prophylaxis: Pepcid DVT Prophylaxis: SCD's Patient seen and case discussed with attending, Dr. Kevin Gomez. <Gomez,Irfana B - Last Filed: 10/17/17 17:27> Objective - Vital Signs/Intake and Output Vital Signs (last 24 hours): Temp Pulse Resp BP Pulse Ox 98.9 F 97 H 18 121/77 98 10/17/17 12:00 10/17/17 12:00 10/17/17 12:00 10/17/17 12:00 10/17/17 12:00 Intake and Output: 10/17/17 10/17/17 06:59 18:59 Intake Total 1857 Balance 1857 - Medications Medications: Current Medications Aspirin (Ecotrin) 81 mg PO DAILY [facility] Last Admin: 10/17/17 10:14 Dose: 81 mg Diphenhydramine HCl (Benadryl) 25 mg PO HS PRN PRN Reason: Insomnia Famotidine (Pepcid) 20 mg IVP Q12 [facility] Last Admin: 10/17/17 10:17 Dose: 20 mg Folic Acid (Folic Acid) 1 mg PO DAILY [facility] Last Admin: 10/17/17 10:15 Dose: 1 mg Hydralazine HCl (Apresoline) 10 mg IVP Q6 PRN PRN Reason: Systolic Blood Pressure Last Admin: 10/16/17 12:09 Dose: 10 mg Potassium Chloride 40 meq/ (Lactated Ringer's) 1,020 mls @ 150 mls/hr IV .Q6H48M [facility] Last Admin: 10/17/17 16:52 Dose: 150 mls/hr Lorazepam (Ativan) 2 mg IVP Q2H PRN; Protocol PRN Reason: Symptoms of alcohol withdrawl Last Admin: 10/17/17 03:02 Dose: 2 mg Metoprolol Succinate (Toprol Xl) 25 mg PO BID [facility] Last Admin: 10/17/17 10:15 Dose: 25 mg Metoprolol Tartrate (Lopressor) 5 mg IVP Q6 PRN PRN Reason: Systolic Blood Pressure Last Admin: 10/17/17 00:53 Dose: 5 mg Morphine Sulfate (Morphine) 2 mg IVP Q4 PRN PRN Reason: Pain, moderate (4-7) Last Admin: 10/17/17 15:51 Dose: 2 mg Multivitamins/Minerals (Therapeutic-M Tab) 1 tab PO 0800 [facility] Ondansetron HCl (Zofran Inj) 4 mg IVP Q4H PRN PRN Reason: Nausea/Vomiting Last Admin: 10/13/17 16:05 Dose: 4 mg Thiamine HCl (Vitamin B1 Tab) 100 mg PO DAILY [facility] Last Admin: 10/17/17 10:15 Dose: 100 mg - Labs Labs: 10/17/17 06:45 10/17/17 06:45 PT 10.9 SECONDS (9.4-12.5) 10/13/17 07:03 INR 0.95 (0.93-1.08) 10/13/17 07:03 APTT 73.3 Seconds (25.1-36.5) H 10/17/17 06:45 Attending/Attestation - Attestation I have personally seen and examined this patient.: Yes I have fully participated in the care of the patient.: Yes I have reviewed all pertinent clinical information, including history, physical exam and plan: Yes Notes (Text): I have seen and examined the patient at bedside. Agree with the above note with the following additions/ exceptions: Briefly this is 51 year old male with history of polysubstance abuse, on methadone program, hypertension, hyperlipidemia, and chronic pancreatitis who was admitted for abdominal pain, nausea, vomiting and found to have alcohol induced acute pancreatitis. He was also found to have alcohol withdrawal syndrome NSTEMI and chronic thrombocytopenia. Today he reports improvement in abdominal pain however states that he has no appetite. Denies any nausea or vomiting. Diet will be advance to full liquid diet. Start methadone. Continue CIWA protocol. Continue MVI, folic acid and thiamine. He also has NSTEMI. Continue aspirin, heparin drip and metoprolol. He has chronic thrombocytopenia secondary to alcohol abuse. There is no active bleeding. Alcohol cessation counselling provided. Upon discharge patient will follow up with PMD Dr Galvez. Dr Kevin Gomez
--- NOTE | 2017-10-17 14:40 | PN ---
DATE: 10/17/2017 SUBJECTIVE: The patient is lying in bed. He is less agitated and delirious. He appears alert. He denies any nausea and vomiting. He still has some abdominal pain. PHYSICAL EXAMINATION: VITAL SIGNS: Reveal temperature of 98.9, blood pressure 121/77, heart rate of 97. HEENT: Reveal sclerae to be muddy. Conjunctivae pink. NECK: Supple. CHEST: Reveal distant breath sounds. HEART: Reveals regular rate and rhythm. ABDOMEN: Soft. Mild diffuse tenderness. No rebound. No guarding. EXTREMITIES: Show no edema. LABORATORY DATA: Reveals white blood cell count 9.7, hemoglobin 10. BUN 10, creatinine 0.6. Platelet count from today is up to 77,000. Reticulocyte count from 10/15/2017 is 0.73. His amylase is 196, lipase is 688. IMPRESSION: 1. Acute on chronic pancreatitis. 2. Elevated liver enzymes secondary to alcoholic liver disease. 3. Alcohol dependence. RECOMMENDATIONS: Advance diet slowly as tolerated. If the patient's abdominal pain gets worse, may need to downgrade diet back to liquids. Javier Gonzáles MD
--- NOTE | 2017-10-17 17:09 | PN ---
DATE: 10/17/2017 CARDIOLOGY FOLLOWUP SUBJECTIVE: The patient remains sedated. OBJECTIVE: VITAL SIGNS: Blood pressure is 121/77, heart rate in the 90s. NECK: Negative JVD. LUNGS: Decreased breath sounds. HEART: With S1, S2. EXTREMITIES: Without edema. LABORATORY DATA: Hemoglobin is 10. Chemistries: BUN and creatinine 10 and 0.6, potassium is 4.0. Troponins were mildly elevated 2 days ago. Echocardiogram reveals good LV function. IMPRESSION: 1. Alcoholic withdrawal. 2. [id number] elevation myocardial infarction. 3. Pancreatitis. 4. Multidrug abuse. 5. Hypertension. Given these findings, the patient is currently being treated medically for his acute coronary syndrome. He is on aspirin, beta-blockers. We will be able to stop his therapeutic heparin today. Gwyn Monzon MD
[2017-10-17] MEDS ORDERED: Morphine 2 mg/ml ISec IVP PRN (17:29)
--- NOTE | 2017-10-17 18:43 | CP.PCM.PN ---
Subjective - Date & Time of Evaluation Date of Evaluation: 10/17/17 Time of Evaluation: 12:00 - Subjective Subjective: No complaints. Objective - Vital Signs/Intake and Output Vital Signs (last 24 hours): Temp Pulse Resp BP Pulse Ox 98.9 F 97 H 18 121/77 98 10/17/17 12:00 10/17/17 12:00 10/17/17 12:00 10/17/17 12:00 10/17/17 12:00 Intake and Output: 10/17/17 10/17/17 06:59 18:59 Intake Total 1857 Balance 1857 - Medications Medications: Current Medications Aspirin (Ecotrin) 81 mg PO DAILY [facility] Last Admin: 10/17/17 10:14 Dose: 81 mg Diphenhydramine HCl (Benadryl) 25 mg PO HS PRN PRN Reason: Insomnia Famotidine (Pepcid) 20 mg IVP Q12 [facility] Last Admin: 10/17/17 10:17 Dose: 20 mg Folic Acid (Folic Acid) 1 mg PO DAILY [facility] Last Admin: 10/17/17 10:15 Dose: 1 mg Hydralazine HCl (Apresoline) 10 mg IVP Q6 PRN PRN Reason: Systolic Blood Pressure Last Admin: 10/16/17 12:09 Dose: 10 mg Potassium Chloride 40 meq/ (Lactated Ringer's) 1,020 mls @ 150 mls/hr IV .Q6H48M [facility] Last Admin: 10/17/17 16:52 Dose: 150 mls/hr Lorazepam (Ativan) 2 mg IVP Q2H PRN; Protocol PRN Reason: Symptoms of alcohol withdrawl Last Admin: 10/17/17 03:02 Dose: 2 mg Metoprolol Succinate (Toprol Xl) 25 mg PO BID [facility] Last Admin: 10/17/17 10:15 Dose: 25 mg Metoprolol Tartrate (Lopressor) 5 mg IVP Q6 PRN PRN Reason: Systolic Blood Pressure Last Admin: 10/17/17 00:53 Dose: 5 mg Morphine Sulfate (Morphine) 1 mg IVP Q4 PRN PRN Reason: Pain, moderate (4-7) Multivitamins/Minerals (Therapeutic-M Tab) 1 tab PO 0800 [facility] Ondansetron HCl (Zofran Inj) 4 mg IVP Q4H PRN PRN Reason: Nausea/Vomiting Last Admin: 10/13/17 16:05 Dose: 4 mg Thiamine HCl (Vitamin B1 Tab) 100 mg PO DAILY [facility] Last Admin: 10/17/17 10:15 Dose: 100 mg - Labs Labs: 10/17/17 06:45 10/17/17 06:45 PT 10.9 SECONDS (9.4-12.5) 10/13/17 07:03 INR 0.95 (0.93-1.08) 10/13/17 07:03 APTT 73.3 Seconds (25.1-36.5) H 10/17/17 06:45 - Head Exam Head Exam: ATRAUMATIC - Eye Exam Eye Exam: Normal appearance - ENT Exam ENT Exam: Mucous Membranes Dry - Respiratory Exam Respiratory Exam: NORMAL BREATHING PATTERN - Cardiovascular Exam Cardiovascular Exam: +S1, +S2 - GI/Abdominal Exam GI & Abdominal Exam: Normal Bowel Sounds Assessment and Plan (1) Thrombocytopenia Assessment & Plan: platelet count improving alcohol induced bone marrow suppression Status: Acute (2) Anemia Assessment & Plan: chronic disease bone marrow suppression from alcohol Status: Acute (3) Tobacco abuse Assessment & Plan: smoking cessation discussed Status: Acute
[2017-10-18] MEDS: Potassium Chloride 40 MEQ in Lactated Ringer's 1,000 ML IV SCH ×2 (06:41→13:45)
[2017-10-18 07:22] LABS: BASO # 0.04 K/mm3 (0.0-2.0); BASO % 0.5 % (0.0-3.0); EOS # 0.1 (0.0-0.7); EOS % 1.2 % (1.5-5.0); GRAN # 5.22 (1.4-6.5); GRAN % 62.5 % (50.0-68.0); HEMOGLOBIN 9.4 g/dL (14.0-18.0); LYMPH # 2.1 (1.2-3.4); LYMPH % 25.3 % (22.0-35.0); MEAN CELL VOLUME 78.8 fl (80.0-105.0); MEAN CORPUSCULAR HEMOGLOBIN 27.6 pg (25.0-35.0); MEAN CORPUSCULAR HGB CONC 35.1 g/dl (31.0-37.0); MEAN PLATELET VOLUME 10.6 fl (7.0-11.0); MONO # 0.9 (0.1-0.6); MONO % 10.5 % (1.0-6.0); RBC 3.4 10^6/uL (3.5-6.1); RED CELL DISTRIBUTION WIDTH 16.2 % (11.5-14.5); WHITE BLOOD COUNT 8.4 10^3/ul (4.5-11.0)
[2017-10-18 07:48] LABS: ALBUMIN 2.8 g/dL (3.0-4.8); ALT/SGPT 83 U/L (7-56); AST/SGOT 74 U/L (17-59); BLOOD UREA NITROGEN 11 mg/dL (7-21); CALCIUM 9.9 mg/dL (8.4-10.5); GFR AFRICAN-AMERICAN > 60; GFR NON-AFRICAN AMERICAN > 60; LIPASE 831 U/L (23-300)
[2017-10-18] MEDS: Multivitamin With Minerals Tab PO SCH (07:50)
[2017-10-18] MEDS: Metoprolol Succinate 25 mg XL Tab PO SCH ×2 (10:07→18:05)
--- NOTE | 2017-10-18 13:25 | CP.PCM.PN ---
<Alfonzo Shi - Last Filed: 10/18/17 13:20> Subjective - Date & Time of Evaluation Date of Evaluation: 10/18/17 Time of Evaluation: 13:20 - Subjective Subjective: Medicine Progress Note: Patient seen and assessed at bedside with 1:1 observer present at bedside. No acute events overnight noted by patient or nursing staff. Patient denies any complaints at this time but does question why his Methadone dosage was decreased. This was explained to patient and patient with verbal agreement of plan for daily titrations and assessments. He denies fever, chills, headache, chest pain, SOB, abdominal pain, N/V/D/C, urinary changes or any new skin changes. Objective - Vital Signs/Intake and Output Vital Signs (last 24 hours): Temp Pulse Resp BP Pulse Ox 98.2 F 90 16 118/83 98 10/18/17 11:55 10/18/17 11:55 10/18/17 11:55 10/18/17 11:55 10/18/17 05:54 Intake and Output: 10/18/17 10/18/17 06:59 18:59 Intake Total 2040 Output Total 500 Balance 1540 - Medications Medications: Current Medications Aspirin (Ecotrin) 81 mg PO DAILY [facility] Last Admin: 10/18/17 10:07 Dose: 81 mg Diphenhydramine HCl (Benadryl) 25 mg PO HS PRN PRN Reason: Insomnia Last Admin: 10/17/17 20:57 Dose: 25 mg Famotidine (Pepcid) 20 mg IVP Q12 [facility] Last Admin: 10/18/17 10:07 Dose: 20 mg Folic Acid (Folic Acid) 1 mg PO DAILY [facility] Last Admin: 10/18/17 10:07 Dose: 1 mg Potassium Chloride 40 meq/ (Lactated Ringer's) 1,020 mls @ 150 mls/hr IV .Q6H48M [facility] Last Admin: 10/18/17 06:41 Dose: 150 mls/hr Lorazepam (Ativan) 2 mg IVP Q2H PRN; Protocol PRN Reason: Symptoms of alcohol withdrawl Last Admin: 10/17/17 03:02 Dose: 2 mg Metoprolol Succinate (Toprol Xl) 25 mg PO BID [facility] Last Admin: 10/18/17 10:07 Dose: 25 mg Metoprolol Tartrate (Lopressor) 5 mg IVP Q6 PRN PRN Reason: Systolic Blood Pressure Last Admin: 10/17/17 00:53 Dose: 5 mg Morphine Sulfate (Morphine) 1 mg IVP Q4 PRN PRN Reason: Pain, moderate (4-7) Multivitamins/Minerals (Therapeutic-M Tab) 1 tab PO 0800 [facility] Last Admin: 10/18/17 07:50 Dose: 1 tab Ondansetron HCl (Zofran Inj) 4 mg IVP Q4H PRN PRN Reason: Nausea/Vomiting Last Admin: 10/13/17 16:05 Dose: 4 mg Thiamine HCl (Vitamin B1 Tab) 100 mg PO DAILY [facility] Last Admin: 10/18/17 10:07 Dose: 100 mg - Labs Labs: 10/18/17 06:45 10/18/17 06:45 PT 10.9 SECONDS (9.4-12.5) 10/13/17 07:03 INR 0.95 (0.93-1.08) 10/13/17 07:03 APTT 73.3 Seconds (25.1-36.5) H 10/17/17 06:45 - Constitutional Appears: Non-toxic, No Acute Distress - Head Exam Head Exam: ATRAUMATIC, NORMOCEPHALIC - Eye Exam Eye Exam: EOMI, Normal appearance Pupil Exam: NORMAL ACCOMODATION, PERRL - ENT Exam ENT Exam: Mucous Membranes Moist, Normal Exam - Neck Exam Neck Exam: absent: Lymphadenopathy - Respiratory Exam Respiratory Exam: Clear to Ausculation Bilateral, NORMAL BREATHING PATTERN. absent: Accessory Muscle Use, Chest Wall Tenderness, Decreased Breath Sounds, Prolonged Expiratory Phase, Rales, Rhonchi, Wheezes, Respiratory Distress, Stridor - Cardiovascular Exam Cardiovascular Exam: REGULAR RHYTHM, RRR, +S1, +S2. absent: Bradycardia, Tachycardia, Clicks, Diastolic murmur, Gallop, Irregular Rhythm, JVD, Rubs, +S4 , Murmur - GI/Abdominal Exam GI & Abdominal Exam: Soft, Normal Bowel Sounds. absent: Distended, Firm, Guarding, Rigid, Tenderness, Rebound - Extremities Exam Extremities Exam: Full ROM, Normal Capillary Refill, Normal Inspection. absent : Calf Tenderness, Joint Swelling, Pedal Edema, Tenderness - Back Exam Back Exam: NORMAL INSPECTION. absent: CVA tenderness (L), CVA tenderness (R) - Neurological Exam Neurological Exam: Alert, Awake, CN II-XII Intact, Oriented x3 - Psychiatric Exam Psychiatric exam: Agitated - Skin Skin Exam: Dry, Intact, Warm Assessment and Plan - Assessment and Plan (Free Text) Assessment: 51 year old AA male with a past medical histoy significant for polysubstance abuse, HTN, HLD and chronic pancreatitis who presented with complaints of abdominal pain and nausea/vomiting. He was found to have acute pancreatitis. Patient also found to have elevated troponins. He was started on IV fluids, Heparin drip, which has since been discontinued, and pain control. He was also placed on precautions for alcohol withdrawal. He was noted to pancytopenia. Cardiology and Heme/Onc consulted. Plan: 1. Acute on Chronic Pancreatitis -Lipase downtrending from admission -Continue LR at 150mls/hr -Continued Morphine 2mg IVP Q4H PRN for pain control -Continue Zofran PRN for N/V -Diet advanced to Low Fat/Cholesterol soft diet; will advance further as tolerated -GI consulted, all recommendations appreciated 2. NSTEMI -Troponin trended downwards and is currently WNL -EKG showing no significant changes or ST elevations/T wave inversions -Discontinued Heparin drip -Continue ASA 81mg PO daily -Continue Hydralazine PRN for SBP>160mmHg -Cardiology consulted, all recommendations appreciated 3. Alcohol Abuse/Withdrawal -Continues to improve on CIWA assessments and daily Ativan requirements -Continue 1:1 observation for agitation as indicated -Continue Ativan 2mg IVP Q2H PRN -Folic Acid, MV and Thiamine PO supplementation -CIWA assessments Q4 -Seizure, Fall and Aspiration precautions -Cessation advised -PT/OT Evaluation and Treatment recommending HWS -SW/CM consulted to establish HWS 4. History of Polysubstance Abuse -Confirmed dosage of outpatient Methadone at 130mg daily with [facility] in -Continue Methadone 30mg with daily reevaluations -Continue to titrate from 30mg daily to his previous daily dose as indicated 5. Iron Deficiency Anemia -Continue Feosol -Continue to monitor with daily CBC's 6. Pancytopenia -Likely secondary to alcohol abuse -HIT Ab negative -Heme/Onc consulted, all recommendations pending 7. History of HLD -Lipitor currently held in setting of transaminitis 8. History of HTN -Continue scheduled and as needed Metoprolol -Continue as needed Hydralazine GI Prophylaxis: Pepcid DVT Prophylaxis: SCD's Patient seen and case discussed with attending, Dr. Kevin Gomez. <Kevin Gomez - Last Filed: 10/18/17 16:26> Objective - Vital Signs/Intake and Output Vital Signs (last 24 hours): Temp Pulse Resp BP Pulse Ox 98.2 F 78 16 118/83 98 10/18/17 11:55 10/18/17 14:00 10/18/17 11:55 10/18/17 11:55 10/18/17 05:54 Intake and Output: 10/18/17 10/18/17 06:59 18:59 Intake Total 2040 Output Total 500 Balance 1540 - Medications Medications: Current Medications Aspirin (Ecotrin) 81 mg PO DAILY [facility] Last Admin: 10/18/17 10:07 Dose: 81 mg Diphenhydramine HCl (Benadryl) 25 mg PO HS PRN PRN Reason: Insomnia Last Admin: 10/17/17 20:57 Dose: 25 mg Famotidine (Pepcid) 20 mg IVP Q12 [facility] Last Admin: 10/18/17 10:07 Dose: 20 mg Folic Acid (Folic Acid) 1 mg PO DAILY [facility] Last Admin: 10/18/17 10:07 Dose: 1 mg Lactated Ringer's (Lactated Ringer's) 1,000 mls @ 75 mls/hr IV .[id number] [facility] Last Admin: 10/18/17 13:48 Dose: 75 mls/hr Lorazepam (Ativan) 2 mg IVP Q2H PRN; Protocol PRN Reason: Symptoms of alcohol withdrawl Last Admin: 10/17/17 03:02 Dose: 2 mg Metoprolol Succinate (Toprol Xl) 25 mg PO BID [facility] Last Admin: 10/18/17 10:07 Dose: 25 mg Metoprolol Tartrate (Lopressor) 5 mg IVP Q6 PRN PRN Reason: Systolic Blood Pressure Last Admin: 10/17/17 00:53 Dose: 5 mg Morphine Sulfate (Morphine) 1 mg IVP Q4 PRN PRN Reason: Pain, moderate (4-7) Multivitamins/Minerals (Therapeutic-M Tab) 1 tab PO 0800 [facility] Last Admin: 10/18/17 07:50 Dose: 1 tab Ondansetron HCl (Zofran Inj) 4 mg IVP Q4H PRN PRN Reason: Nausea/Vomiting Last Admin: 10/13/17 16:05 Dose: 4 mg Thiamine HCl (Vitamin B1 Tab) 100 mg PO DAILY [facility] Last Admin: 10/18/17 10:07 Dose: 100 mg - Labs Labs: 10/18/17 06:45 10/18/17 06:45 PT 10.9 SECONDS (9.4-12.5) 10/13/17 07:03 INR 0.95 (0.93-1.08) 10/13/17 07:03 APTT 73.3 Seconds (25.1-36.5) H 10/17/17 06:45 Attending/Attestation - Attestation I have personally seen and examined this patient.: Yes I have fully participated in the care of the patient.: Yes I have reviewed all pertinent clinical information, including history, physical exam and plan: Yes Notes (Text): I have seen and examined the patient at bedside. Agree with the above note with the following additions/ exceptions: Briefly this is 51 year old male with history of polysubstance abuse, on methadone program, hypertension, hyperlipidemia, and chronic pancreatitis who was admitted for abdominal pain, nausea, vomiting and found to have alcohol induced acute pancreatitis. He was also found to have alcohol withdrawal syndrome NSTEMI and chronic thrombocytopenia. Today he reports improvement in abdominal pain and is requesting for methadone. Denies any nausea or vomiting. As per nursing staff, he has been eating full meals. Diet will be advance to low fat diet. Continue methadone. Continue CIWA protocol. Continue MVI, folic acid and thiamine. He also has NSTEMI. Continue aspirin and metoprolol. He has chronic thrombocytopenia secondary to alcohol abuse. There is no active bleeding. Alcohol cessation counselling provided. PT recommended HWS. Will do PT re eval. Upon discharge patient will follow up with PMD Dr Galvez. Dr Kevin Gomez
[2017-10-18] MEDS: Lactated Ringer's 1,000 ML IV SCH (13:48)
--- NOTE | 2017-10-18 17:07 | PN ---
DATE: 10/18/2017 SUBJECTIVE: The patient is sitting up in bed. His abdominal pain has improved. He denies any nausea, vomiting. He is requesting his methadone. PHYSICAL EXAMINATION: VITAL SIGNS: Reveal temperature of 98.2, blood pressure 118/83, heart rate 90. HEENT: Reveals sclerae to be muddy, conjunctivae pale. NECK: Supple. CHEST: Reveals lungs to be clear. HEART: Reveals regular rate and rhythm. ABDOMEN: Soft, less tenderness. No rebound, no guarding. EXTREMITIES: Show no edema. LABORATORY DATA: Reveals hemoglobin 9.4, white blood cell count 8.4. Chemistries reveal AST 74, ALT 83. Serum lipase is 831. IMPRESSION: 1. Acute on chronic pancreatitis. 2. Elevated liver enzymes secondary to alcoholic hepatitis. RECOMMENDATIONS: We will advance to a low-fat, soft diet. If tolerated, the patient can be discharged home. Javier Gonzáles MD
[2017-10-19 00:31] VITALS: RESP 20
[2017-10-19] MEDS: Lactated Ringer's 1,000 ML IV SCH ×2 (05:09→05:10)
[2017-10-19 06:30] VITALS: TEMP 98.8; O2SAT 99
[2017-10-19 07:29] LABS: BASO # 0.04 K/mm3 (0.0-2.0); BASO % 0.6 % (0.0-3.0); EOS # 0.1 (0.0-0.7); EOS % 1.8 % (1.5-5.0); GRAN # 3.62 (1.4-6.5); GRAN % 53.5 % (50.0-68.0); HEMOGLOBIN 8.6 g/dL (14.0-18.0); LYMPH # 2.1 (1.2-3.4); LYMPH % 30.8 % (22.0-35.0); MEAN CELL VOLUME 78.1 fl (80.0-105.0); MEAN CORPUSCULAR HEMOGLOBIN 27.3 pg (25.0-35.0); MEAN PLATELET VOLUME 10.4 fl (7.0-11.0); MONO # 0.9 (0.1-0.6); MONO % 13.3 % (1.0-6.0); RBC 3.15 10^6/uL (3.5-6.1); RED CELL DISTRIBUTION WIDTH 16.2 % (11.5-14.5); WHITE BLOOD COUNT 6.8 10^3/ul (4.5-11.0)
[2017-10-19 07:47] LABS: ALB/GLOB RATIO 1.1 (1.1-1.8); ALBUMIN 2.9 g/dL (3.0-4.8); ALT/SGPT 75 U/L (7-56); AST/SGOT 53 U/L (17-59); BLOOD UREA NITROGEN 9 mg/dL (7-21); CALCIUM 9.9 mg/dL (8.4-10.5); GFR AFRICAN-AMERICAN > 60; GFR NON-AFRICAN AMERICAN > 60; LIPASE 697 U/L (23-300)
[2017-10-19] MEDS: Multivitamin With Minerals Tab PO SCH (08:56)
[2017-10-19] MEDS: Metoprolol Succinate 25 mg XL Tab PO SCH (09:58)
[2017-10-19 10:00] VITALS: BP 123/81
[2017-10-19] MEDS ORDERED: Amylase/Lipase/Protease 5,000 Units ECC PO SCH (11:30)
[2017-10-19 12:00] VITALS: PULSE 92
--- NOTE | 2017-10-19 12:27 | PN ---
DATE: 10/19/2017 SUBJECTIVE: The patient is lying in bed comfortable. His abdominal pain is less. He is tolerating solid foods. He denies any nausea or vomiting. PHYSICAL EXAMINATION: VITAL SIGNS: Reveal temperature of 98.8, blood pressure 123/81, heart rate of 94. HEENT: Reveals sclerae to be white. Conjunctivae pale. NECK: Supple. CHEST: Reveals lungs to be clear. HEART: Reveals a regular rate and rhythm. ABDOMEN: Soft. Mild diffuse tenderness. No rebound. No guarding. EXTREMITIES: Show no edema. LABORATORY DATA: Reveals hemoglobin 8.6, platelet count 137,000. BUN 9, creatinine 0.7. IMPRESSION: Acute on chronic pancreatitis secondary to chronic alcohol use. RECOMMENDATIONS: The patient is stable from a GI standpoint. He may benefit from Pancrease 5000 units three times a day with food. The patient has also been instructed to abstain from any further alcohol. Javier Gonzáles MD
--- NOTE | 2017-10-19 12:43 | PN ---
DATE: 10/19/2017 CARDIOLOGY FOLLOWUP SUBJECTIVE: The patient is more awake today. No chest pain noted. PHYSICAL EXAMINATION: VITAL SIGNS: Blood pressure is 123/81, heart rates in the 90s. NECK: Negative JVD. LUNGS: Without rales. HEART: Reveals S1, S2. EXTREMITIES: Without edema. LABORATORY DATA: BUN and creatinine are unremarkable. Hemoglobin is 8.6. IMPRESSION: 1. Acute pancreatitis. 2. Alcoholic withdrawal. 3. Vxv-JJ-dypzyvogt myocardial infarction. 4. Coronary artery disease. 5. Multidrug abuse. 6. Hypertension. PLAN: Given these findings, I have outlined to the patient the consequences of many of his behavioral actions. The patient's non-STEMI will be treated medically with aspirin as well as beta blockers. I have discussed with the patient about his need to make some dramatic changes. Gwyn Monzon MD
--- NOTE | 2017-10-19 16:42 | CP.PCM.PN ---
Subjective - Date & Time of Evaluation Date of Evaluation: 10/19/17 Time of Evaluation: 11:00 - Subjective Subjective: No complaints. Objective - Vital Signs/Intake and Output Vital Signs (last 24 hours): Temp Pulse Resp BP Pulse Ox 98.8 F 92 H 20 123/81 99 10/19/17 06:00 10/19/17 10:00 10/19/17 06:00 10/19/17 09:58 10/19/17 06:00 Intake and Output: 10/19/17 10/19/17 06:59 18:59 Intake Total 1335 Output Total 1000 0 Balance 335 0 - Labs Labs: 10/19/17 07:00 10/19/17 07:00 PT 10.9 SECONDS (9.4-12.5) 10/13/17 07:03 INR 0.95 (0.93-1.08) 10/13/17 07:03 APTT 73.3 Seconds (25.1-36.5) H 10/17/17 06:45 - Head Exam Head Exam: ATRAUMATIC - Eye Exam Eye Exam: Normal appearance - ENT Exam ENT Exam: Mucous Membranes Dry - Respiratory Exam Respiratory Exam: NORMAL BREATHING PATTERN - Cardiovascular Exam Cardiovascular Exam: +S1, +S2 - GI/Abdominal Exam GI & Abdominal Exam: Normal Bowel Sounds Assessment and Plan (1) Thrombocytopenia Assessment & Plan: resolving secondary to alcohol bone marrow suppression Status: Acute (2) Anemia Assessment & Plan: chronic disease and bone marrow suppression from alcoholism Status: Acute (3) Tobacco abuse Assessment & Plan: smoking cessation discussed at length Status: Acute
== END 2017-10-19 13:07 | disposition home or self-care (01) | DRG 557 ==
LOC: ED 06:01 → ERH 08:48 → 3RNO 12:12 → 3RSO 10-14 09:02
PROVIDERS: ADMIT Internal Medicine; ATTEND Hospitalist
PROC: 3E033GC Introduction of Other Therapeutic Substance into Peripheral Vein, Percutaneous Approach (ICD-10-PCS; principal; 2017-10-14)
PROC: HZ91ZZZ Pharmacotherapy for Substance Abuse Treatment, Methadone Maintenance (ICD-10-PCS; 2017-10-17)
DX: K85.20 Alcohol induced acute pancreatitis without necrosis or infection (principal); I21.4 Non-ST elevation (NSTEMI) myocardial infarction; D61.818 Other pancytopenia; F10.231 Alcohol dependence with withdrawal delirium; E87.2 Acidosis; F11.20 Opioid dependence, uncomplicated; K70.10 Alcoholic hepatitis without ascites; I10 Essential (primary) hypertension; I25.10 Atherosclerotic heart disease of native coronary artery without angina pectoris; K86.0 Alcohol-induced chronic pancreatitis; D63.8 Anemia in other chronic diseases classified elsewhere; K21.9 Gastro-esophageal reflux disease without esophagitis; F17.200 Nicotine dependence, unspecified, uncomplicated; E78.00 Pure hypercholesterolemia, unspecified; Y90.6 Blood alcohol level of 120-199 mg/100 ml; Z78.1 Physical restraint status; Z91.19 Patient's noncompliance with other medical treatment and regimen

== ENCOUNTER 2017-12-04 14:51 | Inpatient (IN) | payer OTHER ==
[2017-12-04 14:54] VITALS: BMI 22.8
[2017-12-04] MEDS ORDERED: Iohexol 350 MG/100 ML VIAL ONE (15:01)
--- NOTE | 2017-12-04 15:24 | CT ---
PROCEDURE: CT HEAD WITHOUT CONTRAST. HISTORY: Code Stroke COMPARISON: None available. TECHNIQUE: Axial computed tomography images were obtained through the head/brain without intravenous contrast. Radiation dose: Total exam DLP = 863 mGy-cm. This CT exam was performed using one or more of the following dose reduction techniques: Automated exposure control, adjustment of the mA and/or kV according to patient size, and/or use of iterative reconstruction technique. FINDINGS: HEMORRHAGE: No intracranial hemorrhage. BRAIN: No mass effect or edema. No atrophy or chronic microvascular ischemic changes. VENTRICLES: Unremarkable. No hydrocephalus. CALVARIUM: Unremarkable. PARANASAL SINUSES: Unremarkable as visualized. No significant inflammatory changes. MASTOID AIR CELLS: Unremarkable as visualized. No inflammatory changes. OTHER FINDINGS: None. IMPRESSION: No acute findings
--- NOTE | 2017-12-04 15:40 | CT ---
PROCEDURE: CT Angiography of the neck with contrast HISTORY: CVA COMPARISON: None available. TECHNIQUE: Contiguous axial images of the neck were obtained from the level of the skull-base to the superior mediastinum in the arteriographic phase of enhancement. Coronal and sagittal reformats or also generated. IV contrast dose: 100 cc of Omni 350 Radiation Dose - DLP: 445 mGy-cm This CT exam was performed using one or more of the following dose reduction techniques: Automated exposure control, adjustment of the mA and/or kV according to patient size, and/or use of iterative reconstruction technique. FINDINGS: RIGHT CAROTID ARTERIES: Calcified plaque at the bifurcation with no significant stenosis LEFT CAROTID ARTERIES: Calcified plaque at the bifurcation with no significant stenosis VERTEBRAL ARTERIES: Right Vertebral Artery: Normal. Left Vertebral Artery: Normal. OTHER FINDINGS: None. 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 This is unchanged. Calcified plaques in both carotid bifurcations without stenosis. CT Angiography of the Brain. HISTORY: CVA COMPARISON: None available. TECHNIQUE: CT angiography of the intracranial arteries was performed. Coronal and sagittal maximum intensity projection reformated images were generated. This CT exam was performed using one or more of the following dose reduction techniques: Automated exposure control, adjustment of the mA and/or kV according to patient size, and/or use of iterative reconstruction technique. FINDINGS: INTERNAL CEREBRAL ARTERIES: Unremarkable. The skull base, petrous, cavernous and supraclinoid segments are bilaterally widely patent. ANTERIOR CEREBRAL ARTERIES: Unremarkable. A1 and A2 segments are widely patent. Smaller distal branches unremarkable, as visualized. MIDDLE CEREBRAL ARTERIES: Unremarkable. M1 and M2 segments are widely patent. Perisylvian branches grossly symmetric. POSTERIOR CIRCULATION: Basilar Artery: Unremarkable. Distal Vertebral Arteries: Unremarkable. Posterior Cerebral Arteries: Unremarkable. Posterior Inferior Cerebellar Arteries: Unremarkable. ANEURYSM/ VASCULAR MALFORMATIONS: None. OTHER FINDINGS: None. IMPRESSION: Unremarkable CT Angiography of the Brain.
--- NOTE | 2017-12-04 15:43 | ED PDOC ---
Arrival/HPI - General Chief Complaint: Weakness/Neurological Deficit Time Seen by Provider: 12/04/17 14:57 Historian: Patient - History of Present Illness Narrative History of Present Illness (Text): 12/04/17 14:43 A 52 year old male, whose past medical history includes hypertension, hyperlipidemia, polysubstance abuse, aortic dissection repair, and intermittent pancreatitis, is brought in by EMS and presents to the emergency department complaining of right faical droop and right-side weakness. Patient reports symptoms began approximately 10:00. Patient states was in normal states minutes before occurrence. Also, patient notes being in normal states of health for the past couple of days. Upon EMS arrival, patient's fingerstick reading was 39 and was given d50 in the field. After examining patient here in the ER, fingerstick reading displayed to be 244. Patient mentions no other complaints at this time. PMD: Dr. Brennen Galvez 12/04/17 17:55 Inital nihss reassessment went from 13 to 0 after 1 hour of [id number] arrival . findings and presentation may have been due to low blood sugar . However as per consultaton with Dr. emery the [facility] neurologist on staff , pt should be admitted for mri for further risk stratification and to r/o tia, of note within 2-5 minutes of pt. triage and registration, code [facility]va was called, and code stroke orderset ordered . [facility] neurologist center consultant , Dr. emery was immediately notified of pt presentation within 5-10 minutes of pt preswentaiton ot ED / glucose fsg/ nihss score. Neuroradiologist was called within 10 minutes of rpesentaiton and gave a verbal reading to ct head report of which Dr. EMERY WAS SUBSEQUENTLY NOTIFED WELL. 12/04/17 17:58 Past Medical History - Provider Review Nursing Documentation Reviewed: Yes - Infectious Disease Hx of Infectious Diseases: None - Tetanus Immunization Tetanus Immunization: Unknown - Cardiac Hx Cardiac Disorders: Yes (chest pain, aaa repair 2014) Hx Hypertension: Yes - Pulmonary Hx Respiratory Disorders: Yes - Neurological HX Cerebrovascular Accident: No - HEENT Hx HEENT Disorder: No - Renal Hx Renal Disorder: No - Endocrine/Metabolic Hx Endocrine Disorders: No - Hematological/Oncological Hx Blood Disorders: Yes Hx Anemia: Yes (iron deficiency) - Integumentary Hx Dermatological Disorder: No Other/Comment: 08-02-17 "BLACK EYE" FROM FALL.MISSED A STEP, dry skin both feet/ ankles . 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 - Anesthesia Hx Anesthesia: Yes Hx Anesthesia Reactions: No Hx Malignant Hyperthermia: No - Suicidal Assessment Feels Threatened In Home Enviroment: No Family/Social History - Physician Review Nursing Documentation Reviewed: Yes Family/Social History: No Known Family HX Smoking Status: Heavy Smoker > 10 Cigarettes Daily Hx Alcohol Use: Yes (1/2 pt erika daily) Hx Substance Use: Yes (quit snorting heroine "3 months ago" pt stated) Substance used: heroin Hx Substance Use Treatment: Yes Allergies/Home Meds Allergies/Adverse Reactions: Allergies No Known Allergies Allergy (Verified 12/04/17 15:20) Home Medications: Home Meds Medication Instructions Recorded Confirmed Methadone 150 mg PO DAILY 05/18/17 12/04/17 Aspirin [Ecotrin] 81 mg PO DAILY 05/19/17 12/04/17 Atorvastatin [Lipitor] 40 mg PO DAILY 05/19/17 12/04/17 Famotidine [Pepcid] 20 mg PO DAILY 05/19/17 12/04/17 Ferrous Sulfate [Feosol] 325 mg PO DAILY 08/02/17 12/04/17 Metoprolol Succinate XL [Toprol XL] 25 mg PO BRK 12/04/17 12/04/17 Review of Systems - Physician Review All systems were reviewed & negative as marked: Yes - Review of Systems Constitutional: absent: Fevers Neurological: Facial Droop (right-side), Other (right-side weakness) Physical Exam Vital Signs Pulse Resp BP Pulse Ox 12/04/17 20:33 95 H 20 142/85 98 12/04/17 17:21 91 H 18 144/101 H 100 12/04/17 16:49 103 H 18 149/105 H 100 12/04/17 15:19 80 18 163/91 H 99 Temperature: Afebrile Blood Pressure: Normal Pulse: Regular Respiratory Rate: Normal Appearance: Positive for: Well-Appearing, Non-Toxic, Comfortable Pain Distress: None Mental Status: Positive for: Alert and Oriented X 3 - Systems Exam Head: Present: Atraumatic, Normocephalic Pupils: Present: PERRL Extroacular Muscles: Present: EOMI Conjunctiva: Present: Normal Mouth: Present: Moist Mucous Membranes Neck: Present: Normal Range of Motion Respiratory/Chest: Present: Clear to Auscultation, Good Air Exchange. No: Respiratory Distress, Accessory Muscle Use Cardiovascular: Present: Regular Rate and Rhythm, Normal S1, S2. No: Murmurs Abdomen: No: Tenderness, Distention, Peritoneal Signs Back: Present: Normal Inspection Upper Extremity: Present: Normal Inspection. No: Cyanosis, Edema Lower Extremity: Present: Normal Inspection. No: Edema Neurological: Present: GCS=15, CN II-XII Intact, Speech Normal, Norm Deep Tendon Reflexes, Memory Normal, Other (right sided UE/LE WEAKNESS/parasthesiae/ neglect and pathcy sensory deficits. see nihss scale reading . ) Skin: Present: Warm, Dry, Normal Color. No: Rashes Psychiatric: Present: Alert, Oriented x 3, Normal Insight, Normal Concentration Medical Decision Making ED Course and Treatment: 12/04/17 14:55 Impression: 52 year old male with right-side facial droop and right-side weakness. Plan: -- EKG -- Head/Neck CTA -- Chest X-ray -- Labs -- IV Fluids -- Stroke Team Consult Stat -- Reassess and disposition Progress Notes: 12/04/17 14:56 Code Stroke called. 12/04/2017 15:[address] IMPRESSION: No acute findings. Dictator: Vince Johnson MD 12/04/2017 15:39 Head/Neck CTA IMPRESSION: 1. 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 This is unchanged. Calcifid plaques in both carotid bifurcations without stenosis. 2. Unremarkable CT Angiography of the Brain. Dictator: Vince Johnson MD 12/04/2017 15:48 Chest X-ray IMPRESSION: No active disease. No significant interval change compared to the prior examination(s). Dictator: Jose Antonio Gonzalez MD - Lab Interpretations Lab Results: 12/04/17 16:20 12/04/17 16:20 Lab Results 12/04/17 18:23: Blood Type A POSITIVE, Antibody Screen Negative, BBK History Checked No verified bt 12/04/17 16:20: Alcohol, Quantitative 39 H 12/04/17 16:20: Hemoglobin A1c 4.5 12/04/17 16:20: Sodium 135, Potassium 4.7, Chloride 97 L, Carbon Dioxide 22, Anion Gap 21 H, BUN 10, Creatinine 0.6 L, Est GFR ( Amer) > 60, Est GFR ( Non-Af Amer) > 60, Random Glucose 104, Calcium 9.3, Total Bilirubin 0.5, AST 122 H D, ALT 63 H, Alkaline Phosphatase 88, Troponin I < 0.01 D, NT-Pro-B Natriuret Pep 233, Total Protein 7.3, Albumin 4.3, Globulin 3.0, Albumin/ Globulin Ratio 1.5, Triglycerides 95, Cholesterol 199, LDL Cholesterol Direct 44 , HDL Cholesterol 136 H 12/04/17 16:20: PT 10.4, INR 0.91 L, APTT 27.4 12/04/17 16:20: WBC 5.9, RBC 4.54, Hgb 12.7 L D, Hct 35.5 L, MCV 78.2 L, MCH 28.0, MCHC 35.8, RDW 15.8 H, Plt Count 113 L, MPV 10.4, Gran % 77.3 H, Lymph % ( Auto) 18.5 L, [place] % (Auto) 4.2, Eos % (Auto) 0.0 L, Baso % (Auto) 0.0, Gran # 4.59, Lymph # (Auto) 1.1 L, [place] # (Auto) 0.3, Eos # (Auto) 0.0, Baso # (Auto) 0.00 - RAD Interpretation Radiology Orders: 12/04/17 14:57 CTA HEAD/NECK CODE STROKE [CT] Stat HEAD W/O (CODE STROKE) [CT] Stat CHEST PORTABLE [RAD] Stat - Medication Orders Current Medication Orders: Sodium Chloride (Sodium Chloride 0.9%) 1,000 mls @ 100 mls/hr IV .Q10H CESAR Last Admin: 12/04/17 16:48 Dose: 100 mls/hr eMAR Start Stop Document 12/04/17 16:48 MR (Rec: 12/04/17 16:50 MR [id number]) Intravenous Solution Start Date 12/04/17 Start Time 16:50 Discontinued Medications Aspirin (Ecotrin) 81 mg PO STAT STA Stop: 12/04/17 20:23 Last Admin: 12/04/17 21:19 Dose: 81 mg Atorvastatin Calcium (Lipitor) 40 mg PO STAT STA Stop: 12/04/17 20:23 NIHSS Scale ([place]) Time Performed: 14:50 - How Severe is the Stoke Baseline Level of Consciousness: 0=Alert LOC to Questions: 0=Both comments correct LOC to commands: 0=Obeys both correctly Best Gaze: 0=Normal Visual: 0=No visual loss Facial: 0=Normal Motor Arm - Left: 0=No drift Motor Arm - Right: 4=No movement Motor Leg - Left: 0=No drift Motor Leg - Right: 4=No movement Limb Ataxia: 2=Present both Sensory: 2=Severe to total loss Best Language: 0=No aphasia Dysarthia: 0=Normal articulation Extinction & Inattention (Neglect): 1=Partial neglect (mild molly-attention) Score: 13 Risk Level: Mod Stroke Risk - Scribe Statement The provider has reviewed the documentation as recorded by the Adrien Gonzalez Provider Scribe Attestation: All medical record entries made by the Timmyibe were at my direction and personally dictated by me. I have reviewed the chart and agree that the record accurately reflects my personal performance of the history, physical exam, medical decision making, and the department course for this patient. I have also personally directed, reviewed, and agree with the discharge instructions and disposition. Disposition/Present on Arrival - Present on Arrival Any Indicators Present on Arrival: No History of DVT/PE: No History of Uncontrolled Diabetes: No Urinary Catheter: No History of Decub. Ulcer: No History Surgical Site Infection Following: None - Disposition Have Diagnosis and Disposition been Completed?: Yes Diagnosis: TIA (transient ischemic attack), Hypoglycemia Disposition: HOSPITALIZED Disposition Time: 18:04 Patient Plan: Admission Patient Problems: Current Active Problems Problem Status Onset Hypoglycemia Acute TIA (transient ischemic attack) Acute Condition: CRITICAL
--- NOTE | 2017-12-04 15:50 | RAD ---
HISTORY: Code Stroke COMPARISON: 08/02/2017 FINDINGS: LUNGS: No active pulmonary disease. PLEURA: No significant pleural effusion identified, no pneumothorax apparent. CARDIOVASCULAR: No radiographic findings to suggest acute or significant cardiovascular disease. Incidental Finding(s): Postoperative changes related to sternotomy. OSSEOUS STRUCTURES: No significant abnormalities. VISUALIZED UPPER ABDOMEN: Normal. OTHER FINDINGS: None. IMPRESSION: No active disease. No significant interval change compared to the prior examination(s).
[2017-12-04] MEDS: Sodium Chloride 0.9% 1,000 ML IV SCH (16:48)
[2017-12-04 17:00] LABS: GRAN # 4.59 (1.4-6.5); GRAN % 77.3 % (50.0-68.0); HEMOGLOBIN 12.7 g/dL (14.0-18.0); LYMPH # 1.1 (1.2-3.4); LYMPH % 18.5 % (22.0-35.0); MEAN CELL VOLUME 78.2 fl (80.0-105.0); MEAN CORPUSCULAR HGB CONC 35.8 g/dl (31.0-37.0); MEAN PLATELET VOLUME 10.4 fl (7.0-11.0); MONO # 0.3 (0.1-0.6); MONO % 4.2 % (1.0-6.0); RBC 4.54 10^6/uL (3.5-6.1); RED CELL DISTRIBUTION WIDTH 15.8 % (11.5-14.5); WHITE BLOOD COUNT 5.9 10^3/ul (4.5-11.0)
[2017-12-04 17:15] LABS: ALB/GLOB RATIO 1.5 (1.1-1.8); ALBUMIN 4.3 g/dL (3.0-4.8); ALT/SGPT 63 U/L (7-56); AST/SGOT 122 U/L (17-59); BLOOD UREA NITROGEN 10 mg/dL (7-21); CALCIUM 9.3 mg/dL (8.4-10.5); GFR AFRICAN-AMERICAN > 60; GFR NON-AFRICAN AMERICAN > 60
[2017-12-04 17:20] LABS: INR 0.91 (0.93-1.08); PARTIAL THROMBOPLASTIN TIME 27.4 Seconds (25.1-36.5); PROTHROMBIN TIME 10.4 SECONDS (9.4-12.5)
[2017-12-04 17:26] LABS: LDL CHOLESTEROL 44 mg/dL (0-129)
[2017-12-04 17:29] LABS: B-TYPE NATRIURETIC PEPTIDE 233 pg/mL (0-450); TROPONIN I < 0.01 ng/mL
[2017-12-04 17:39] LABS: HDL CHOLESTEROL 136 mg/dL (29-60)
--- NOTE | 2017-12-04 20:09 | CARD ---
APPROVED REPORT EKG Measurement Heart [id number] <Conclusion> Normal sinus rhythm Normal ECG
--- NOTE | 2017-12-04 21:37 | CP.PCM.HP ---
<Mila Oneill - Last Filed: 12/04/17 23:10> History of Present Illness - History of Present Illness History of Present Illness: 52 year old male, whose past medical history includes hypertension, anemia, hyperlipidemia, polysubstance abuse, aortic dissection repair, and intermittent pancreatitis, is brought in by EMS and presents to the emergency department complaining of right faical droop and right-side weakness. Patient stated he was standing up watching T.V when the symptoms occurred. When his symptoms occurred he stated his right side gave out and he fell. He denies any head trauma. Patient assumed symptoms would go away, when they did not he called the ambulance. Code Stroke was called in the E.D. Patient found to be hypoglycemic with a fingerstick reading of 39. Patient was given D50. Subsequent fingerstick reading was 244. Patient symptoms of right sided facial droop and right sided weakness have completely resolved. Patient states he had nothing to drink today. He states he goes to [facility] and takes 130mg of Methadone Daily ROS POSITIVES: Headache, Dizziness, Blurry Vision, CP, SOB, Left Leg Weakness NEGATIVES: Fever, palpitations, abdominal pain, nausea, vomiting, changes in bowel habits or urinary symptoms. PMHx: As stated above. PSHx: aortic dissection repair (2014) Allergies: NKDA SocialHx: 1/2 PPD for 25 years, Admits to a [employer] everyother Day, Unemployed, lives in [facility]: 2 months ago for pancreatitis FamHx: Sister-CVA Meds: Reviewed Present on Admission - Present on Admission Any Indicators Present on Admission: No Review of Systems - Review of Systems All systems: reviewed and no additional remarkable complaints except (As per HPI ) Review of Systems: As per HPI Past Patient History - Infectious Disease Hx of Infectious Diseases: None - Tetanus Immunizations Tetanus Immunization: Unknown - Past Medical History & Family History Past Medical History?: Yes - Past Social History Smoking Status: Heavy Smoker > 10 Cigarettes Daily - CARDIAC Hx Cardiac Disorders: Yes (chest pain, aaa repair 2014) Hx Hypertension: Yes - PULMONARY Hx Respiratory Disorders: Yes - NEUROLOGICAL HX Cerebrovascular Accident: No - HEENT Hx HEENT Problems: No - RENAL Hx Chronic Kidney Disease: No - ENDOCRINE/METABOLIC Hx Endocrine Disorders: No - HEMATOLOGICAL/ONCOLOGICAL Hx Blood Disorders: Yes Hx Anemia: Yes (iron deficiency) - INTEGUMENTARY Hx Dermatological Problems: No Other/Comment: 08-02-17 "BLACK EYE" FROM FALL.MISSED A STEP, dry skin both feet/ ankles . 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 - ANESTHESIA Hx Anesthesia: Yes Hx Anesthesia Reactions: No Hx Malignant Hyperthermia: No Meds Allergies/Adverse Reactions: Allergies Allergy/AdvReac Type Severity Reaction Status Date / Time No Known Allergies Allergy Verified 12/04/17 15:20 Physical Exam - Constitutional Appears: Non-toxic, No Acute Distress - Head Exam Head Exam: ATRAUMATIC, NORMAL INSPECTION, NORMOCEPHALIC - Eye Exam Eye Exam: EOMI, PERRL Pupil Exam: Miosis - ENT Exam ENT Exam: Mucous Membranes Moist - Neck Exam Neck exam: Positive for: Full Rom, Normal Inspection - Respiratory Exam Respiratory Exam: Clear to Auscultation Bilateral, NORMAL BREATHING PATTERN - Cardiovascular Exam Cardiovascular Exam: RRR, +S1, +S2. absent: JVD Additional comments: No Carotid Bruit - GI/Abdominal Exam GI & Abdominal Exam: Guarding (Voluntary), Normal Bowel Sounds, Soft. absent: Tenderness - Extremities Exam Extremities exam: Positive for: normal capillary refill. Negative for: pedal edema - Neurological Exam Neurological exam: Alert, CN II-XII Intact, Oriented x3 Additional comments: No Motor or sensory Deficit 5/5 Muscle Strength in Upper and Lower Extremities Mild Tremor - Psychiatric Exam Psychiatric exam: Normal Mood - Skin Skin Exam: Dry, Intact, Normal Color, Warm Results - Vital Signs Recent Vital Signs: Last Vital Signs Temp Pulse 95 H 12/04/17 20:33 Resp 20 12/04/17 20:33 BP 142/85 12/04/17 20:33 Pulse Ox 98 12/04/17 20:33 - Labs Result Diagrams: 12/04/17 16:20 12/04/17 16:20 Labs: Laboratory Results - last 24 hr 12/04/17 12/04/17 12/04/17 16:20 16:20 16:20 WBC 5.9 RBC 4.54 Hgb 12.7 L D Hct 35.5 L MCV 78.2 L MCH 28.0 MCHC 35.8 RDW 15.8 H Plt Count 113 L MPV 10.4 Gran % 77.3 H Lymph % (Auto) 18.5 L Alexander % (Auto) 4.2 Eos % (Auto) 0.0 L Baso % (Auto) 0.0 Gran # 4.59 Lymph # (Auto) 1.1 L Alexander # (Auto) 0.3 Eos # (Auto) 0.0 Baso # (Auto) 0.00 PT 10.4 INR 0.91 L APTT 27.4 Sodium 135 Potassium 4.7 Chloride 97 L Carbon Dioxide 22 Anion Gap 21 H BUN 10 Creatinine 0.6 L Est GFR ( Amer) > 60 Est GFR (Non-Af Amer) > 60 Random Glucose 104 Hemoglobin A1c Calcium 9.3 Total Bilirubin 0.5 AST 122 H D ALT 63 H Alkaline Phosphatase 88 Troponin I < 0.01 D NT-Pro-B Natriuret Pep 233 Total Protein 7.3 Albumin 4.3 Globulin 3.0 Albumin/Globulin Ratio 1.5 Triglycerides 95 Cholesterol 199 LDL Cholesterol Direct 44 HDL Cholesterol 136 H Alcohol, Quantitative Blood Type Antibody Screen BBK History Checked 12/04/17 12/04/17 12/04/17 16:20 16:20 18:23 WBC RBC Hgb Hct MCV MCH MCHC RDW Plt Count MPV Gran % Lymph % (Auto) Alexander % (Auto) Eos % (Auto) Baso % (Auto) Gran # Lymph # (Auto) Alexander # (Auto) Eos # (Auto) Baso # (Auto) PT INR APTT Sodium Potassium Chloride Carbon Dioxide Anion Gap BUN Creatinine Est GFR ( Amer) Est GFR (Non-Af Amer) Random Glucose Hemoglobin A1c 4.5 Calcium Total Bilirubin AST ALT Alkaline Phosphatase Troponin I NT-Pro-B Natriuret Pep Total Protein Albumin Globulin Albumin/Globulin Ratio Triglycerides Cholesterol LDL Cholesterol Direct HDL Cholesterol Alcohol, Quantitative 39 H Blood Type A POSITIVE Antibody Screen Negative BBK History Checked No verified bt Assessment & Plan - Assessment and Plan (Free Text) Assessment: 52 year old male, whose past medical history includes hypertension, anemia, hyperlipidemia, polysubstance abuse, aortic dissection repair, and intermittent pancreatitis admitted for evaluation and treatment for Right Sided weakness and facial droop. Plan: Right Sided Weakness/Facial Droop CVA vs Hypoglycemia Head/Neck CTA (Adm): 1. 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 This is unchanged. Calcifid plaques in both carotid bifurcations without stenosis. 2. Unremarkable CT Angiography of the Brain. CXR: No active Disease EKG: NSR with no ST/T wave abnormalities Code Stroke Called Neurology Consulted (Dr. Matos) Lipitor and ASA given in the ED D50 Given in ED Symptoms Resolved NIHSS Stroke Scale of 0 on exam. Orginally 13 Neuro Checks Lipid Panel - Unremarkable Swallow Eval - Passed Code Stroke MRI D50 PRN C-Peptide/Insulin D50 PRN ASA daily Elevated Liver Enzymes Likely 2/2 to EtoH Absue Monitor Chest Pain, R/O ACS Serial EKG's Serial Troponins Cardiology Consult Hx of Polysubstance Abuse/Elevated EtOH lvl Ativan PRN for symptoms of alcohol withdrawal Consider Scheuduled Librium or Ativan CIWA Protocol Neuro Checks Seizure Checks Hold Methodone until Confirmed in AM Banana BAG Thiamine, Folate, MultiVitamins Consider Psych Consult Hx of Anemia Home Ferrous Sulfate 324 Daily Hx of HTN Home Metoprolol Proph Lovenox Protonix Patient discussed with Attending (Dr. Olsen) Mila Oneill, PGY-1 NIHSS Scale ([place]) Time Performed: 20:00 - How Severe is the Stoke Baseline Level of Consciousness: 0=Alert LOC to Questions: 0=Both comments correct LOC to commands: 0=Obeys both correctly Best Gaze: 0=Normal Visual: 0=No visual loss Facial: 0=Normal Motor Arm - Left: 0=No drift Motor Arm - Right: 0=No drift Motor Leg - Left: 0=No drift Motor Leg - Right: 0=No drift Limb Ataxia: 0=Absent Sensory: 0=Normal Best Language: 0=No aphasia Dysarthia: 0=Normal articulation Extinction & Inattention (Neglect): 0=Normal, no object Score: 0 Risk Level: No Stroke Risk <Africa Olsen - Last Filed: 12/05/17 06:23> Results - Vital Signs Recent Vital Signs: Last Vital Signs Temp 98.7 F 12/05/17 01:44 Pulse 102 H 12/05/17 02:00 Resp 20 12/05/17 01:44 BP 139/79 12/05/17 01:44 Pulse Ox 98 12/05/17 00:05 - Labs Result Diagrams: 12/04/17 16:20 12/04/17 16:20 Labs: Laboratory Results - last 24 hr 12/04/17 12/05/17 12/05/17 22:25 00:30 00:44 POC Glucose (mg/dL) 46 L 205 H Troponin I 0.02 D Urine Opiates Screen Urine Methadone Screen Ur Barbiturates Screen Ur Phencyclidine Scrn Ur Amphetamines Screen U Benzodiazepines Scrn U Oth Cocaine Metabols U Cannabinoids Screen 12/05/17 12/05/17 02:00 03:45 POC Glucose (mg/dL) 115 H Troponin I Urine Opiates Screen Negative Urine Methadone Screen Positive H Ur Barbiturates Screen Negative Ur Phencyclidine Scrn Negative Ur Amphetamines Screen Negative U Benzodiazepines Scrn Negative U Oth Cocaine Metabols Negative U Cannabinoids Screen Negative Attending/Attestation - Attestation I have personally seen and examined this patient.: Yes I have fully participated in the care of the patient.: Yes I have reviewed all pertinent clinical information: Yes Notes (Text): 12/05/17 06:21 Patient was seen when he was in the ER. Medical record was reviewed. Agree with history , physical examination, assessment and plan.
[2017-12-04] MEDS ORDERED: Dextrose 50% SYRINGE Inj (50 ml) IVP PRN (22:02)
[2017-12-04] MEDS ORDERED: Folic Acid 1 MG, Thiamine 100 MG, Multivitamin (MVI) 10 ML in Dextrose 5% In Water 1,00... IV SCH (22:15)
[2017-12-05] MEDS: Sodium Chloride 0.9% 1,000 ML IV SCH ×4 (03:00→21:58)
[2017-12-05 03:06] LABS: PHENCYCLIDINE, UR NEGATIVE (NEGATIVE)
[2017-12-05 03:15] LABS: BARBITURATES, UR NEGATIVE (NEGATIVE); BENZODIAZEPINES, UR NEGATIVE (NEGATIVE); OPIATES, UR NEGATIVE (NEGATIVE)
[2017-12-05] MEDS: Pantoprazole 40 mg EC Tab PO SCH (05:43)
[2017-12-05 06:25] LABS: BASO # 0.01 K/mm3 (0.0-2.0); BASO % 0.1 % (0.0-3.0); EOS % 0.4 % (1.5-5.0); GRAN # 4.69 (1.4-6.5); HEMOGLOBIN 11.5 g/dL (14.0-18.0); LYMPH # 1.4 (1.2-3.4); LYMPH % 19.8 % (22.0-35.0); MEAN CELL VOLUME 77.3 fl (80.0-105.0); MEAN CORPUSCULAR HEMOGLOBIN 27.7 pg (25.0-35.0); MEAN CORPUSCULAR HGB CONC 35.8 g/dl (31.0-37.0); MONO # 0.8 (0.1-0.6); MONO % 11.7 % (1.0-6.0); RBC 4.15 10^6/uL (3.5-6.1); RED CELL DISTRIBUTION WIDTH 15.7 % (11.5-14.5); WHITE BLOOD COUNT 6.9 10^3/ul (4.5-11.0)
[2017-12-05 06:51] LABS: TROPONIN I 0.02 ng/mL
[2017-12-05 07:38] LABS: ALB/GLOB RATIO 1.2 (1.1-1.8); ALBUMIN 3.3 g/dL (3.0-4.8); ALT/SGPT 48 U/L (7-56); AST/SGOT 74 U/L (17-59); BLOOD UREA NITROGEN 12 mg/dL (7-21); CALCIUM 8.9 mg/dL (8.4-10.5); GFR AFRICAN-AMERICAN > 60; GFR NON-AFRICAN AMERICAN > 60
--- NOTE | 2017-12-05 08:06 | CP.PCM.PN ---
<Charline Dow - Last Filed: 12/05/17 14:14> Subjective - Date & Time of Evaluation Date of Evaluation: 12/05/17 Time of Evaluation: 07:10 - Subjective Subjective: IM progress note for Dr. Healy-Charline Dow, PGY-1 Pt S & E at bedside. Pt reports some residual R sided weakness, now with complaints of nausea, feels like he is going through withdrawals. Admits to LOPEZ (chronic), chills, blurry vision (chronic), insomnia, nausea, CP, SOB. Denies emesis, fevers, amaurosis fugax. Objective - Vital Signs/Intake and Output Vital Signs (last 24 hours): Temp Pulse Resp BP Pulse Ox 98.8 F 80 18 116/65 99 12/05/17 06:00 12/05/17 06:00 12/05/17 06:00 12/05/17 06:00 12/05/17 06:00 Intake and Output: 12/05/17 12/05/17 06:59 18:59 Intake Total 1200 Balance 1200 - Medications Medications: Current Medications Aspirin (Ecotrin) 81 mg PO DAILY [facility] Atorvastatin Calcium (Lipitor) 40 mg PO HS [facility] Dextrose (Dextrose 50% Inj) 50 ml IVP Q2H PRN PRN Reason: Hypoglycemia Last Admin: 12/05/17 00:36 Dose: 50 ml Enoxaparin Sodium (Lovenox) 40 mg SC DAILY [facility] [place] PRN Reason: Protocol Ferrous Sulfate (Feosol) 324 mg PO DAILY [facility] [place] Folic Acid (Folic Acid) 1 mg PO DAILY [facility] [place] Sodium Chloride (Sodium Chloride 0.9%) 1,000 mls @ 100 mls/hr IV .Q10H CESAR Last Admin: 12/05/17 03:00 Dose: 100 mls/hr Folic Acid 1 mg/ Thiamine HCl 100 mg/ Multivitamins/Vitamin C 10 ml/ Dextrose 1 ,011.2 mls @ 100 mls/hr IV .Q10H7M [facility] [place] Stop: 12/05/17 08:21 Last Admin: 12/04/17 23:52 Dose: 100 mls/hr Lorazepam (Ativan) 2 mg IVP Q4H PRN; Protocol PRN Reason: Symptoms of alcohol withdrawl Methadone HCl (Methadone) 130 mg PO DAILY [facility] [place] Metoprolol Succinate (Toprol Xl) 25 mg PO BRK [facility] [place] Multivitamins/Minerals (Therapeutic-M Tab) 1 tab PO 0800 [facility] [place] Pantoprazole Sodium (Protonix Ec Tab) 40 mg PO 0600 [facility] [place] Last Admin: 12/05/17 05:43 Dose: 40 mg Thiamine HCl (Vitamin B1 Tab) 100 mg PO DAILY [facility] [place] - Labs Labs: 12/05/17 06:00 12/05/17 06:00 PT 10.4 SECONDS (9.4-12.5) 12/04/17 16:20 INR 0.91 (0.93-1.08) L 12/04/17 16:20 APTT 27.4 Seconds (25.1-36.5) 12/04/17 16:20 - Constitutional Appears: Non-toxic, No Acute Distress - Head Exam Head Exam: ATRAUMATIC, NORMAL INSPECTION, NORMOCEPHALIC - Eye Exam Eye Exam: EOMI, Normal appearance - ENT Exam ENT Exam: Mucous Membranes Moist, Normal Exam - Neck Exam Neck Exam: Full ROM, Normal Inspection - Respiratory Exam Respiratory Exam: Clear to Ausculation Bilateral, NORMAL BREATHING PATTERN - Cardiovascular Exam Cardiovascular Exam: REGULAR RHYTHM, +S1, +S2 - GI/Abdominal Exam GI & Abdominal Exam: Soft. absent: Distended, Firm, Guarding, Tenderness - Extremities Exam Extremities Exam: Normal Inspection. absent: Tenderness - Neurological Exam Neurological Exam: Alert, Awake, CN II-XII Intact, Oriented x3 - Psychiatric Exam Psychiatric exam: Normal Affect, Normal Mood - Skin Skin Exam: Dry, Intact, Normal Color, Warm Assessment and Plan - Assessment and Plan (Free Text) Assessment: 52M w/PMH sig for HTN, HLD, anemia, polysubstance abuse, aortic dissection repair, and recurrent pancreatitis admitted for Right Sided weakness and facial droop, with some residual right sided weakness and withdrawal symptoms Plan: Right Sided Weakness/Facial Droop Head/Neck CTA w/chronic at aortic dissection extending into proximal left subclavian-unchanged Calcified plaques in both carotid bifurcations w/o stenosis. CTA brain negative CXR -NAD ESR NSR ASA Lipitor Toprol XL Cont Neuro Checks Lipid Panel - WNL FU Code Stroke MRI C-Peptide/Insulin A1c - 4.5 ISS Accuchecks D/c'd D5 PRN Urethral bleeding Monitor bleeding Urology consult- appreciate recs Transaminitis in setting of ETOH abuse Resolving Monitor Chest Pain, R/O ACS Serial EKG's- NSR x1 Serial Trops- neg x 3 FU Cards recs Hx of Polysubstance Abuse/Elevated EtOH CIWA Protocol Neuro Checks Seizure precautions Methadone dose of 130mg daily confirmed with [facility] Folic Acid MV B1 Ativan PRN CLD for now ETOH cessation education Hx of Anemia Cont home med-Ferrous Sulfate 324 Daily Hx of HTN Home Metoprolol GI/DVT ppx Lovenox Protonix DW attending Paloma, PGY-1 <Karina Healy - Last Filed: 12/05/17 17:41> Objective - Vital Signs/Intake and Output Vital Signs (last 24 hours): Temp Pulse Resp BP Pulse Ox 98.7 F 77 19 147/91 H 99 12/05/17 12:00 12/05/17 14:00 12/05/17 12:00 12/05/17 12:00 12/05/17 06:00 Intake and Output: 12/05/17 12/05/17 06:59 18:59 Intake Total 1200 780 Output Total 650 Balance 1200 130 - Medications Medications: Current Medications Aspirin (Ecotrin) 81 mg PO DAILY [facility] [place] Last Admin: 12/05/17 09:33 Dose: 81 mg Atorvastatin Calcium (Lipitor) 40 mg PO HS [facility] [place] Ferrous Sulfate (Feosol) 324 mg PO DAILY [facility] [place] Last Admin: 12/05/17 09:33 Dose: 324 mg Folic Acid (Folic Acid) 1 mg PO DAILY [facility] [place] Last Admin: 12/05/17 09:32 Dose: 1 mg Sodium Chloride (Sodium Chloride 0.9%) 1,000 mls @ 100 mls/hr IV .Q10H [facility] [place] Last Admin: 12/05/17 11:03 Dose: Not Given Insulin Human Regular (Humulin R Med) 0 units SC ACHS [facility] [place] PRN Reason: Protocol Last Admin: 12/05/17 16:44 Dose: Not Given Lorazepam (Ativan) 2 mg IVP Q4H PRN; Protocol PRN Reason: Symptoms of alcohol withdrawl Methadone HCl (Methadone) 130 mg PO DAILY [facility] [place] Last Admin: 12/05/17 10:28 Dose: Not Given Metoprolol Succinate (Toprol Xl) 25 mg PO BRK [facility] [place] Last Admin: 12/05/17 08:30 Dose: 25 mg Multivitamins/Minerals (Therapeutic-M Tab) 1 tab PO 0800 [facility] [place] Last Admin: 12/05/17 08:30 Dose: 1 tab Ondansetron HCl (Zofran Inj) 4 mg IVP Q6H PRN PRN Reason: Nausea/Vomiting Last Admin: 12/05/17 11:02 Dose: 4 mg Pantoprazole Sodium (Protonix Ec Tab) 40 mg PO 0600 [facility] [place] Last Admin: 12/05/17 05:43 Dose: 40 mg Thiamine HCl (Vitamin B1 Tab) 100 mg PO DAILY [facility] [place] Last Admin: 12/05/17 09:32 Dose: 100 mg - Labs Labs: 12/05/17 06:00 12/05/17 06:00 PT 10.4 SECONDS (9.4-12.5) 12/04/17 16:20 INR 0.91 (0.93-1.08) L 12/04/17 16:20 APTT 27.4 Seconds (25.1-36.5) 12/04/17 16:20 Attending/Attestation - Attestation I have personally seen and examined this patient.: Yes I have fully participated in the care of the patient.: Yes I have reviewed all pertinent clinical information, including history, physical exam and plan: Yes Notes (Text): 12/05/17 17:36 attending note; Patient seen and examined with resident. Patient is alert, awake. Complaining of abdominal pain. Also complaining of nausea. Patient is a 51 year old male with a past medical histoy of polysubstance abuse , on methadone program, hypertension, hyperlipidemia, and chronic pancreatitis is admitted with right-sided weakness secondary to hypoglycemia. resolved immediately after D50 administration. CT head is negative for any acute findings. Less likely TIA. Patient is currently asymptomatic. No focal neurological deficit noted. Currently with epigastric pain on nausea. Improving slowly. Started on clear liquid diet. complete alcohol cessation is strongly advised. chronic methadone dependency; continue methadone. History of aortic aneurysm repair in the past; noncompliance with follow-up. continue Metoprolol. hematuria; no aspirin or heparin. CT abdomen and pelvis ordered to rule out renal stone. We will get urology evaluation. UA and urine culture ordered. upon discharge the patient will follow up with PMD . Prognosis is poor secondary to noncompliance with follow-up and continuous alcohol abuse.
[2017-12-05] MEDS: Multivitamin With Minerals Tab PO SCH (08:30)
[2017-12-05] MEDS: Metoprolol Succinate 25 mg XL Tab PO SCH (08:30)
[2017-12-05] MEDS ORDERED: Enoxaparin 40 mg Syringe SC SCH (10:00)
[2017-12-05] MEDS: Insulin Reg-MEDIUM-Coverage SC SCH ×3 (12:57→22:16)
--- NOTE | 2017-12-05 14:11 | CP.PCM.CON ---
History of Present Illness - History of Present Illness History of Present Illness: 52 yr old male who came in as a code stroke but is not a TPA candidate. He has a pmh that includes hypertension, anemia, hyperlipidemia, polysubstance abuse, aortic dissection repair, and intermittent pancreatitis. was brought in after waking up with right sided facial droop numbness and weakness that resolved an hour after presenting to the Er. His initial fs was 39 and siena to 244 after D50. Patient stated he was standing up watching T.V when the symptoms occurred. Patient states he had nothing to drink today. He states he goes to [facility] and takes 130mg of Methadone Daily ROS: Headache, Dizziness, Blurry Vision, CP, SOB, Left Leg Weakness PMHx: As stated above. PSHx: aortic dissection repair (2014) Allergies: NKDA SocialHx: 1/2 PPD for 25 years, Admits to a Pint of [place]ie everyother Day, Unemployed, lives in [place] Hosp: 2 months ago for pancreatitis FamHx: Sister-CVA Neurology exam: AAox3. pupils 3mm-2mm with light. EOMI. CN 2-12 normal. motor, sensory normal. Patient doeshave tremors bilaterally. Gait isnormal. no ataxia. Speech is fluent, can name and repeat. Past Patient History - Infectious Disease Hx of Infectious Diseases: None - Tetanus Immunizations Tetanus Immunization: Unknown - Past Medical History & Family History Past Medical History?: Yes - Past Social History Smoking Status: Heavy Smoker > 10 Cigarettes Daily - CARDIAC Hx Cardiac Disorders: Yes (chest pain, aaa repair 2014) Hx Hypercholesterolemia: Yes Hx Hypertension: Yes - PULMONARY Hx Respiratory Disorders: Yes Hx Bronchitis: Yes - NEUROLOGICAL Hx Neurological Disorder: Yes Hx Seizures: Yes - HEENT Hx HEENT Problems: No - RENAL Hx Chronic Kidney Disease: No - ENDOCRINE/METABOLIC Hx Endocrine Disorders: Yes Other/Comment: hypoglycemia - HEMATOLOGICAL/ONCOLOGICAL Hx Blood Disorders: Yes Hx Anemia: Yes (iron deficiency) - INTEGUMENTARY Other/Comment: dry skin both feet/ankles - MUSCULOSKELETAL/RHEUMATOLOGICAL Hx Musculoskeletal Disorders: Yes Hx Falls: Yes - GASTROINTESTINAL Hx Gastrointestinal Disorders: Yes Hx Gastroesophageal Reflux: Yes Hx Pancreatitis: Yes Other/Comment: colonoscopy 07/21/17: redundant colon and internal hemorrhoids - GENITOURINARY/GYNECOLOGICAL Hx Genitourinary Disorders: Yes Hx Urinary Tract Infection: Yes - PSYCHIATRIC Hx Psychophysiologic Disorder: Yes (H/O HEROINE ABUSE,SNORTED) Other/Comment: quit snorting heroine "about 4 months ago" pt stated. 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/16 - ANESTHESIA Hx Anesthesia: Yes Hx Anesthesia Reactions: No Hx Malignant Hyperthermia: No Meds Allergies/Adverse Reactions: Allergies Allergy/AdvReac Type Severity Reaction Status Date / Time No Known Allergies Allergy Verified 12/04/17 15:20 - Medications Medications: Current Medications Aspirin (Ecotrin) 81 mg PO DAILY [facility] Last Admin: 12/05/17 09:33 Dose: 81 mg Atorvastatin Calcium (Lipitor) 40 mg PO HS [facility] Enoxaparin Sodium (Lovenox) 40 mg SC DAILY [facility] PRN Reason: Protocol Last Admin: 12/05/17 09:33 Dose: 40 mg Ferrous Sulfate (Feosol) 324 mg PO DAILY [facility] Last Admin: 12/05/17 09:33 Dose: 324 mg Folic Acid (Folic Acid) 1 mg PO DAILY [facility] Last Admin: 12/05/17 09:32 Dose: 1 mg Sodium Chloride (Sodium Chloride 0.9%) 1,000 mls @ 100 mls/hr IV .Q10H [facility] Last Admin: 12/05/17 11:03 Dose: Not Given Insulin Human Regular (Humulin R Med) 0 units SC ACHS [facility] PRN Reason: Protocol Last Admin: 12/05/17 12:57 Dose: Not Given Lorazepam (Ativan) 2 mg IVP Q4H PRN; Protocol PRN Reason: Symptoms of alcohol withdrawl Methadone HCl (Methadone) 130 mg PO DAILY [facility] Last Admin: 12/05/17 10:28 Dose: Not Given Metoprolol Succinate (Toprol Xl) 25 mg PO BRK [facility] Last Admin: 12/05/17 08:30 Dose: 25 mg Multivitamins/Minerals (Therapeutic-M Tab) 1 tab PO 0800 [facility] Last Admin: 12/05/17 08:30 Dose: 1 tab Ondansetron HCl (Zofran Inj) 4 mg IVP Q6H PRN PRN Reason: Nausea/Vomiting Last Admin: 12/05/17 11:02 Dose: 4 mg Pantoprazole Sodium (Protonix Ec Tab) 40 mg PO 0600 [facility] Last Admin: 12/05/17 05:43 Dose: 40 mg Thiamine HCl (Vitamin B1 Tab) 100 mg PO DAILY [facility] Last Admin: 12/05/17 09:32 Dose: 100 mg Results - Vital Signs Recent Vital Signs: Last Vital Signs Temp 98.8 F 12/05/17 06:00 Pulse 74 12/05/17 10:00 Resp 18 12/05/17 06:00 BP 129/79 12/05/17 08:30 Pulse Ox 99 12/05/17 06:00 - Labs Result Diagrams: 12/05/17 06:00 12/05/17 06:00 Labs: Laboratory Results - last 24 hr 12/04/17 12/05/17 12/05/17 22:25 00:30 00:44 WBC RBC Hgb Hct MCV MCH MCHC RDW Plt Count MPV Gran % Lymph % (Auto) [place] % (Auto) Eos % (Auto) Baso % (Auto) Gran # Lymph # (Auto) [place] # (Auto) Eos # (Auto) Baso # (Auto) Sodium Potassium Chloride Carbon Dioxide Anion Gap BUN Creatinine Est GFR ( Amer) Est GFR (Non-Af Amer) POC Glucose (mg/dL) 46 L 205 H Random Glucose Calcium Phosphorus Magnesium Total Bilirubin AST ALT Alkaline Phosphatase Troponin I 0.02 D Total Protein Albumin Globulin Albumin/Globulin Ratio Urine Opiates Screen Urine Methadone Screen Ur Barbiturates Screen Ur Phencyclidine Scrn Ur Amphetamines Screen U Benzodiazepines Scrn U Oth Cocaine Metabols U Cannabinoids Screen Blood Type Confirm 12/05/17 12/05/17 12/05/17 02:00 03:45 06:00 WBC RBC Hgb Hct MCV MCH MCHC RDW Plt Count MPV Gran % Lymph % (Auto) [place] % (Auto) Eos % (Auto) Baso % (Auto) Gran # Lymph # (Auto) [place] # (Auto) Eos # (Auto) Baso # (Auto) Sodium Potassium Chloride Carbon Dioxide Anion Gap BUN Creatinine Est GFR ( Amer) Est GFR (Non-Af Amer) POC Glucose (mg/dL) 115 H Random Glucose Calcium Phosphorus Magnesium Total Bilirubin AST ALT Alkaline Phosphatase Troponin I Total Protein Albumin Globulin Albumin/Globulin Ratio Urine Opiates Screen Negative Urine Methadone Screen Positive H Ur Barbiturates Screen Negative Ur Phencyclidine Scrn Negative Ur Amphetamines Screen Negative U Benzodiazepines Scrn Negative U Oth Cocaine Metabols Negative U Cannabinoids Screen Negative Blood Type Confirm A POSITIVE 12/05/17 12/05/17 12/05/17 06:00 06:00 06:28 WBC 6.9 RBC 4.15 Hgb 11.5 L Hct 32.1 L MCV 77.3 L MCH 27.7 MCHC 35.8 RDW 15.7 H Plt Count 77 L MPV 10.0 Gran % 68.0 Lymph % (Auto) 19.8 L [place] % (Auto) 11.7 H Eos % (Auto) 0.4 L Baso % (Auto) 0.1 Gran # 4.69 Lymph # (Auto) 1.4 [place] # (Auto) 0.8 H Eos # (Auto) 0.0 Baso # (Auto) 0.01 Sodium 132 Potassium 4.1 Chloride 98 Carbon Dioxide 29 Anion Gap 10 BUN 12 Creatinine 0.6 L Est GFR ( Amer) > 60 Est GFR (Non-Af Amer) > 60 POC Glucose (mg/dL) 106 Random Glucose 117 H Calcium 8.9 Phosphorus 2.7 Magnesium 1.8 Total Bilirubin 0.6 AST 74 H D ALT 48 Alkaline Phosphatase 76 Troponin I 0.02 Total Protein 6.1 Albumin 3.3 Globulin 2.8 Albumin/Globulin Ratio 1.2 Urine Opiates Screen Urine Methadone Screen Ur Barbiturates Screen Ur Phencyclidine Scrn Ur Amphetamines Screen U Benzodiazepines Scrn U Oth Cocaine Metabols U Cannabinoids Screen Blood Type Confirm 12/05/17 08:27 WBC RBC Hgb Hct MCV MCH MCHC RDW Plt Count MPV Gran % Lymph % (Auto) [place] % (Auto) Eos % (Auto) Baso % (Auto) Gran # Lymph # (Auto) [place] # (Auto) Eos # (Auto) Baso # (Auto) Sodium Potassium Chloride Carbon Dioxide Anion Gap BUN Creatinine Est GFR ( Amer) Est GFR (Non-Af Amer) POC Glucose (mg/dL) 105 Random Glucose Calcium Phosphorus Magnesium Total Bilirubin AST ALT Alkaline Phosphatase Troponin I Total Protein Albumin Globulin Albumin/Globulin Ratio Urine Opiates Screen Urine Methadone Screen Ur Barbiturates Screen Ur Phencyclidine Scrn Ur Amphetamines Screen U Benzodiazepines Scrn U Oth Cocaine Metabols U Cannabinoids Screen Blood Type Confirm - Imaging and Cardiology CT scan - head Status: Image reviewed by me, Report reviewed by me (ct head normal. ) Assessment & Plan - Assessment and Plan (Free Text) Assessment: 52 yr old male with hypoglycemic episode most likely, but low likelihood of TIA. We will invesigate with an MRI brain without girish to rule out an ischemic/ lacunar stroke. Plan: 1. MRI brain 2. No aspirin as he has some bleeding currently. will follow Dr. emery
--- NOTE | 2017-12-05 16:03 | US ---
HISTORY: testicular pain TECHNIQUE: Realtime sonography through the scrotum with color and doppler flow. COMPARISON: None Available. FINDINGS: RIGHT TESTICLE: Measures 2.0 x 3.4 x 2.2 cm. Normal echotexture and flow. RIGHT EPIDIDYMIS: Epididymal head measures 0.8 x 1.1 x 1.1 cm. Grossly unremarkable appearance with normal flow. LEFT TESTICLE: Measures 1.8 x 2.7 x 3.5 cm. Normal echotexture and flow. LEFT EPIDIDYMIS: Epididymal head measures 0.6 x 0.9 x 1.4 cm. Grossly unremarkable appearance with normal flow. HYDROCELE: Small, bilateral VARICOCELE: Unilateral, left OTHER FINDINGS: None. IMPRESSION: Negative study for epididymitis, orchitis, torsion or testicular mass. Additional benign and/or incidental findings described above.
--- NOTE | 2017-12-05 16:07 | CT ---
PROCEDURE: CT Abdomen and Pelvis without intravenous contrast HISTORY: attention to bladder/kidneys COMPARISON: CT of the abdomen 10/13/2017 TECHNIQUE: Without contrast.. Contrast Dose: Radiation dose: Total exam DLP = Total exam DLP = 259 mGy-cm. This CT exam was performed using one or more of the following dose reduction techniques: Automated exposure control, adjustment of the mA and/or kV according to patient size, and/or use of iterative reconstruction technique. FINDINGS: LOWER THORAX: Unremarkable. LIVER: Unremarkable. No gross lesion or ductal dilatation. GALLBLADDER AND BILE DUCTS: Unremarkable. PANCREAS: Unremarkable. No gross lesion or ductal dilatation. SPLEEN: Unremarkable. ADRENALS: Unremarkable. No mass. KIDNEYS AND URETERS: Unremarkable. No hydronephrosis. No solid mass. VASCULATURE: There is a chronic aortic dissection. This was demonstrated previously BOWEL: Unremarkable. No obstruction. No gross mural thickening. APPENDIX: Unremarkable. Normal appendix. PERITONEUM: Unremarkable. No free fluid. No free air. LYMPH NODES: Unremarkable. No enlarged lymph nodes. BLADDER: There is residual contrast material in the bladder from yesterday's contrast-enhanced CTA REPRODUCTIVE: Unremarkable. BONES: No acute fracture. OTHER FINDINGS: None. IMPRESSION: No acute findings
--- NOTE | 2017-12-05 16:12 | MRI ---
PROCEDURE: MRI BRAIN WITHOUT CONTRAST HISTORY: CODE STROKE / CVA COMPARISON: None. TECHNIQUE: Multiplanar, multisequence MR images of the brain were obtained without intravenous contrast enhancement. FINDINGS: HEMORRHAGE: There multiple small hemosiderin deposits scattered throughout the brain. This is probably due to some type of angiopathy. The distribution and the age group are not appropriate for amyloid angiopathy. There are no significant microvascular changes seen on the T2 and FLAIR images. DWI: No evidence of an acute or early subacute infarction. BRAIN PARENCHYMA: No mass effect or edema. There is a focal area of atrophy in the right frontal lobe VENTRICLES: Unremarkable. No hydrocephalus. CRANIUM: Unremarkable. ORBITS: Grossly unremarkable. PARANASAL SINUSES/MASTOIDS: Clear VASCULAR SYSTEM: Skull base flow voids intact. OTHER FINDINGS: None. IMPRESSION: No evidence of acute stroke or hemorrhage. See comments
--- NOTE | 2017-12-05 18:37 | CARD ---
APPROVED REPORT EKG Measurement Heart [id number] <Conclusion> Normal sinus rhythm Nonspecific ST and T wave abnormality Prolonged QT Abnormal ECG
[2017-12-06] MEDS: Pantoprazole 40 mg EC Tab PO SCH (05:14)
[2017-12-06 06:40] LABS: BASO # 0.01 K/mm3 (0.0-2.0); BASO % 0.2 % (0.0-3.0); EOS # 0.1 (0.0-0.7); EOS % 1.5 % (1.5-5.0); GRAN # 3.22 (1.4-6.5); GRAN % 60.7 % (50.0-68.0); HEMOGLOBIN 11.1 g/dL (14.0-18.0); LYMPH # 1.5 (1.2-3.4); LYMPH % 28.6 % (22.0-35.0); MEAN CELL VOLUME 78.5 fl (80.0-105.0); MEAN CORPUSCULAR HEMOGLOBIN 27.1 pg (25.0-35.0); MEAN CORPUSCULAR HGB CONC 34.6 g/dl (31.0-37.0); MEAN PLATELET VOLUME 10.9 fl (7.0-11.0); MONO # 0.5 (0.1-0.6); RBC 4.09 10^6/uL (3.5-6.1); RED CELL DISTRIBUTION WIDTH 15.6 % (11.5-14.5); WHITE BLOOD COUNT 5.3 10^3/ul (4.5-11.0)
[2017-12-06] MEDS: Sodium Chloride 0.9% 1,000 ML IV SCH ×3 (07:00→16:07)
[2017-12-06 07:17] LABS: ALB/GLOB RATIO 1.1 (1.1-1.8); ALT/SGPT 39 U/L (7-56); AST/SGOT 75 U/L (17-59); BLOOD UREA NITROGEN 7 mg/dL (7-21); CALCIUM 8.7 mg/dL (8.4-10.5); GFR AFRICAN-AMERICAN > 60; GFR NON-AFRICAN AMERICAN > 60
[2017-12-06] MEDS: Insulin Reg-MEDIUM-Coverage SC SCH ×4 (07:35→22:40)
[2017-12-06] MEDS: Metoprolol Succinate 25 mg XL Tab PO SCH (08:12)
[2017-12-06] MEDS: Multivitamin With Minerals Tab PO SCH (08:12)
[2017-12-06 13:07] LABS: C-PEPTIDE 0.51 ng/mL (0.80-3.85)
--- NOTE | 2017-12-06 16:35 | CP.PCM.PN ---
<Vikash Marroquin - Last Filed: 12/06/17 16:30> Subjective - Date & Time of Evaluation Date of Evaluation: 12/06/17 Time of Evaluation: 07:10 - Subjective Subjective: IM Progress Note for Hospitalist Service Patient seen and examined at bedside. No acute events overnight, however yesterday evening, the patient and nursing reported scant bloody discharge from the patient's penis (first discovered staining undergarments, then a few further incidences of blood expressed). Today, as per nursing, refusing liquid diet, wants regular food. Denies further bloody penile discharge, neither brendan blood or serosanguinous discharge. Objective - Vital Signs/Intake and Output Vital Signs (last 24 hours): Temp Pulse Resp BP Pulse Ox 98.5 F 84 18 144/88 100 12/06/17 11:34 12/06/17 11:34 12/06/17 11:34 12/06/17 11:34 12/06/17 05:48 Intake and Output: 12/06/17 12/06/17 06:59 18:59 Intake Total 1200 Output Total 1100 Balance 100 - Medications Medications: Current Medications Atorvastatin Calcium (Lipitor) 40 mg PO HS [facility] Last Admin: 12/05/17 21:58 Dose: 40 mg Ferrous Sulfate (Feosol) 324 mg PO DAILY [facility] Last Admin: 12/06/17 09:06 Dose: 324 mg Folic Acid (Folic Acid) 1 mg PO DAILY [facility] Last Admin: 12/06/17 09:06 Dose: 1 mg Sodium Chloride (Sodium Chloride 0.9%) 1,000 mls @ 100 mls/hr IV .Q10H [facility] Last Admin: 12/06/17 16:07 Dose: 100 mls/hr Insulin Human Regular (Humulin R Med) 0 units SC ACHS [facility] PRN Reason: Protocol Last Admin: 12/06/17 11:58 Dose: Not Given Lorazepam (Ativan) 2 mg IVP Q4H PRN; Protocol PRN Reason: Symptoms of alcohol withdrawl Methadone HCl (Methadone) 130 mg PO DAILY [facility] Last Admin: 12/06/17 09:11 Dose: Not Given Metoprolol Succinate (Toprol Xl) 25 mg PO BRK [facility] Last Admin: 12/06/17 08:12 Dose: 25 mg Multivitamins/Minerals (Therapeutic-M Tab) 1 tab PO 0800 [facility] Last Admin: 12/06/17 08:12 Dose: 1 tab Ondansetron HCl (Zofran Inj) 4 mg IVP Q6H PRN PRN Reason: Nausea/Vomiting Last Admin: 12/06/17 05:19 Dose: 4 mg Pantoprazole Sodium (Protonix Ec Tab) 40 mg PO 0600 [facility] Last Admin: 12/06/17 05:14 Dose: 40 mg Thiamine HCl (Vitamin B1 Tab) 100 mg PO DAILY [facility] Last Admin: 12/06/17 09:06 Dose: 100 mg - Labs Labs: 12/06/17 06:15 12/06/17 06:15 PT 10.4 SECONDS (9.4-12.5) 12/04/17 16:20 INR 0.91 (0.93-1.08) L 12/04/17 16:20 APTT 27.4 Seconds (25.1-36.5) 12/04/17 16:20 - Additional Findings Additional findings: - Constitutional Appears: Non-toxic, No Acute Distress - Head Exam Head Exam: ATRAUMATIC, NORMAL INSPECTION, NORMOCEPHALIC - Eye Exam Eye Exam: EOMI, Normal appearance - ENT Exam ENT Exam: Mucous Membranes Moist, Normal Exam - Neck Exam Neck Exam: Full ROM, Normal Inspection - Respiratory Exam Respiratory Exam: Clear to Ausculation Bilateral, NORMAL BREATHING PATTERN - Cardiovascular Exam Cardiovascular Exam: REGULAR RHYTHM, +S1, +S2 - GI/Abdominal Exam GI & Abdominal Exam: Soft. absent: Distended, Firm, Guarding, Tenderness - Exam Exam: absent: Uretheral Discharge (no further bloody or serosanguinous discharge appreciated, no blood expressed with patient-applied pressure to head of penis) - Extremities Exam Extremities Exam: Normal Inspection. absent: Tenderness - Neurological Exam Neurological Exam: Alert, Awake, moving extremities spontaneously, motor grossly intact and equal - Psychiatric Exam Psychiatric exam: Normal Affect, Normal Mood - Skin Skin Exam: Dry, Intact, Normal Color, Warm Assessment and Plan - Assessment and Plan (Free Text) Assessment: This is a 52 yo M with PMH of HTN, HLD, anemia, polysubstance abuse, aortic dissection repair, and recurrent pancreatitis who was admitted for Right-sided weakness and facial droop, with some residual right sided weakness and withdrawal symptoms. He was also found to be acutely hypoglycemic at time, which was corrected and greatly improved his neurologic symptoms, highly suggestive for hypoglycemic hemiplegia syndrome. Plan: 1) Right Sided Weakness/Facial Droop - resolved -hypoglycemic hemiplegia syndrome vs stroke vs TIA -Head/Neck CTA w/chronic at aortic dissection extending into proximal left subclavian-unchanged, Calcified plaques in both carotid bifurcations w/o stenosis. -CTA brain negative -EKG and CXR unremarkable -continue ASA, Lipitor, Toprol XL -Cont Neuro Checks -Lipid Panel - WNL -MRI notable for focal atrophy in R frontal lobe, small scattered hemosiderin deposits consistent with angiopathy (NOT amyloid), no acute stroke -C-Peptide low, concerning for possible exogenous insulin list (insulin not listed on home meds), but low insulin level as well, possibly islet cell destruction 2/2 chronic pancreatitis -A1c - 4.5, so not a diabetic -continue Accuchecks and ISS 2) Urethral bleeding -improved -bleeding resolved -Urology consult- appreciate recs -testicular US only notable for small bilateral hydrocele 3) Transaminitis -improving -like 2/2 ETOH abuse -Resolving, continue Monitor 4) Chest Pain - resolved -EKG was NSR -Trops neg x 3 -Cardio consulted, appreciate their recs -tele discontinued 5) Hx of Polysubstance Abuse/Elevated EtOH -CIWA Protocol, AM score 1 -Neuro Checks -Seizure precautions -Methadone dose of 130mg daily (confirmed with [facility]) -continue Folic Acid, MV, B1 -continue Ativan PRN 6) Hx of Anemia -Cont home med-Ferrous Sulfate 324 Daily 7) Hx of HTN -continue home Metoprolol Dispo: tele, pending Cardio eval and recs, pending PT re-evaluation, pending possible discharge tomorrow FEN: HHD Access: Peripheral IV Consults: Cardio, Neuro, Urology Ppx: Protonix for GI, SCDs for DVT Patient seen, examined, and reviewed with attending, Dr. Healy. <Karina Healy - Last Filed: 12/06/17 17:21> Objective - Vital Signs/Intake and Output Vital Signs (last 24 hours): Temp Pulse Resp BP Pulse Ox 98.5 F 84 18 144/88 100 12/06/17 11:34 12/06/17 11:34 12/06/17 11:34 12/06/17 11:34 12/06/17 05:48 Intake and Output: 12/06/17 12/06/17 06:59 18:59 Intake Total 1200 1100 Output Total 1100 Balance 100 1100 - Medications Medications: Current Medications Atorvastatin Calcium (Lipitor) 40 mg PO HS [facility] Last Admin: 12/05/17 21:58 Dose: 40 mg Ferrous Sulfate (Feosol) 324 mg PO DAILY [facility] Last Admin: 12/06/17 09:06 Dose: 324 mg Folic Acid (Folic Acid) 1 mg PO DAILY [facility] Last Admin: 12/06/17 09:06 Dose: 1 mg Sodium Chloride (Sodium Chloride 0.9%) 1,000 mls @ 100 mls/hr IV .Q10H [facility] Last Admin: 12/06/17 16:07 Dose: 100 mls/hr Insulin Human Regular (Humulin R Med) 0 units SC ACHS [facility] PRN Reason: Protocol Last Admin: 12/06/17 16:36 Dose: Not Given Lorazepam (Ativan) 2 mg IVP Q4H PRN; Protocol PRN Reason: Symptoms of alcohol withdrawl Methadone HCl (Methadone) 130 mg PO DAILY [facility] Last Admin: 12/06/17 09:11 Dose: Not Given Metoprolol Succinate (Toprol Xl) 25 mg PO BRK [facility] Last Admin: 12/06/17 08:12 Dose: 25 mg Multivitamins/Minerals (Therapeutic-M Tab) 1 tab PO 0800 [facility] Last Admin: 12/06/17 08:12 Dose: 1 tab Ondansetron HCl (Zofran Inj) 4 mg IVP Q6H PRN PRN Reason: Nausea/Vomiting Last Admin: 12/06/17 05:19 Dose: 4 mg Pantoprazole Sodium (Protonix Ec Tab) 40 mg PO 0600 [facility] Last Admin: 12/06/17 05:14 Dose: 40 mg Thiamine HCl (Vitamin B1 Tab) 100 mg PO DAILY [facility] Last Admin: 12/06/17 09:06 Dose: 100 mg - Labs Labs: 12/06/17 06:15 12/06/17 06:15 PT 10.4 SECONDS (9.4-12.5) 12/04/17 16:20 INR 0.91 (0.93-1.08) L 12/04/17 16:20 APTT 27.4 Seconds (25.1-36.5) 04/30/18 16:20 Attending/Attestation - Attestation I have personally seen and examined this patient.: Yes I have fully participated in the care of the patient.: Yes I have reviewed all pertinent clinical information, including history, physical exam and plan: Yes Notes (Text): 12/06/17 17:19 attending note; Patient seen and examined with resident. Patient is alert, awake. denies any abdominal pain. Denies any nausea and vomiting. Tolerating liquid diet. Denies any hematuria. Patient is a 51 year old male with a past medical histoy of polysubstance abuse , on methadone program, hypertension, hyperlipidemia, and chronic pancreatitis is admitted with right-sided weakness secondary to hypoglycemia. resolved immediately after D50 administration. CT head is negative for any acute findings. Less likely TIA. Patient is currently asymptomatic. No focal neurological deficit noted. Started on regular diet. chronic methadone dependency; continue methadone. History of aortic aneurysm repair in the past; noncompliance with follow-up. continue Metoprolol. hematuria; no aspirin or heparin. CT abdomen and pelvis is negative for renal stone. Testicular ultrasound is negative. Case discussed with urologist in detail. UA and urine culture ordered. upon discharge the patient will follow up with PMD . Prognosis is poor secondary to noncompliance with follow-up and continuous alcohol abuse.
--- NOTE | 2017-12-06 19:27 | PCM.URO ---
Urology Progress Note - Objective Lab Studies: Reviewed (full note to follow) Lab Results Last 24 Hours: Laboratory Results - last 24 hr 12/04/17 12/04/17 12/05/17 22:25 22:25 21:27 WBC RBC Hgb Hct MCV MCH MCHC RDW Plt Count MPV Gran % Lymph % (Auto) [place] % (Auto) Eos % (Auto) Baso % (Auto) Gran # Lymph # (Auto) [place] # (Auto) Eos # (Auto) Baso # (Auto) Sodium Potassium Chloride Carbon Dioxide Anion Gap BUN Creatinine Est GFR ( Amer) Est GFR (Non-Af Amer) POC Glucose (mg/dL) 132 H Random Glucose Insulin Level 1.3 L C-Peptide 0.51 L Calcium Total Bilirubin AST ALT Alkaline Phosphatase Total Protein Albumin Globulin Albumin/Globulin Ratio 12/06/17 12/06/17 12/06/17 06:15 06:15 07:21 WBC 5.3 D RBC 4.09 Hgb 11.1 L Hct 32.1 L MCV 78.5 L MCH 27.1 MCHC 34.6 RDW 15.6 H Plt Count 86 L MPV 10.9 Gran % 60.7 Lymph % (Auto) 28.6 [place] % (Auto) 9.0 H Eos % (Auto) 1.5 Baso % (Auto) 0.2 Gran # 3.22 Lymph # (Auto) 1.5 [place] # (Auto) 0.5 Eos # (Auto) 0.1 Baso # (Auto) 0.01 Sodium 138 Potassium 3.9 Chloride 103 Carbon Dioxide 31 Anion Gap 8 L BUN 7 Creatinine 0.6 L Est GFR ( Amer) > 60 Est GFR (Non-Af Amer) > 60 POC Glucose (mg/dL) 80 Random Glucose 85 Insulin Level C-Peptide Calcium 8.7 Total Bilirubin 0.5 AST 75 H ALT 39 Alkaline Phosphatase 67 Total Protein 5.7 L Albumin 3.0 Globulin 2.7 Albumin/Globulin Ratio 1.1 12/06/17 12/06/17 11:48 16:32 WBC RBC Hgb Hct MCV MCH MCHC RDW Plt Count MPV Gran % Lymph % (Auto) [place] % (Auto) Eos % (Auto) Baso % (Auto) Gran # Lymph # (Auto) [place] # (Auto) Eos # (Auto) Baso # (Auto) Sodium Potassium Chloride Carbon Dioxide Anion Gap BUN Creatinine Est GFR ( Amer) Est GFR (Non-Af Amer) POC Glucose (mg/dL) 140 H 125 H Random Glucose Insulin Level C-Peptide Calcium Total Bilirubin AST ALT Alkaline Phosphatase Total Protein Albumin Globulin Albumin/Globulin Ratio Intake & Output: Intake & Output 12/06/17 12/06/17 12/07/17 06:59 18:59 06:59 Intake Total 1200 1100 Output Total 1100 Balance 100 1100 Weight 132 lb 8 oz Intake: IV 1200 1100 Left Upper arm 1200 1100 Oral 0 Output: Urine 1100 Urine, Voided 1100 Other: # Voids Urine, Voided 2 # Bowel Movements 0 Vital Signs: Vital Signs - 24 hr 12/05/17 12/05/17 12/06/17 22:00 23:58 01:56 Temperature 98.2 F Pulse Rate 63 74 66 Respiratory 20 Rate Blood Pressure 127/81 O2 Sat by Pulse 100 Oximetry 12/06/17 12/06/17 12/06/17 05:48 08:12 11:34 Temperature 98.2 F 98.5 F Pulse Rate 80 77 84 Respiratory 18 18 Rate Blood Pressure 136/90 149/97 H 144/88 O2 Sat by Pulse 100 Oximetry
[2017-12-07] MEDS: Pantoprazole 40 mg EC Tab PO SCH (05:51)
[2017-12-07 06:24] LABS: BASO # 0.02 K/mm3 (0.0-2.0); BASO % 0.4 % (0.0-3.0); EOS # 0.1 (0.0-0.7); EOS % 1.8 % (1.5-5.0); GRAN # 3.44 (1.4-6.5); GRAN % 63.4 % (50.0-68.0); HEMOGLOBIN 10.8 g/dL (14.0-18.0); LYMPH # 1.3 (1.2-3.4); LYMPH % 24.1 % (22.0-35.0); MEAN CELL VOLUME 79.3 fl (80.0-105.0); MEAN CORPUSCULAR HEMOGLOBIN 27.3 pg (25.0-35.0); MEAN CORPUSCULAR HGB CONC 34.4 g/dl (31.0-37.0); MEAN PLATELET VOLUME 10.4 fl (7.0-11.0); MONO # 0.6 (0.1-0.6); MONO % 10.3 % (1.0-6.0); RBC 3.96 10^6/uL (3.5-6.1); RED CELL DISTRIBUTION WIDTH 15.6 % (11.5-14.5); WHITE BLOOD COUNT 5.4 10^3/ul (4.5-11.0)
[2017-12-07 07:31] LABS: ALB/GLOB RATIO 1.1 (1.1-1.8); ALT/SGPT 51 U/L (7-56); AST/SGOT 74 U/L (17-59); BLOOD UREA NITROGEN 6 mg/dL (7-21); CALCIUM 8.8 mg/dL (8.4-10.5); GFR AFRICAN-AMERICAN > 60; GFR NON-AFRICAN AMERICAN > 60
[2017-12-07] MEDS: Insulin Reg-MEDIUM-Coverage SC SCH ×2 (08:30→11:43)
[2017-12-07] MEDS: Metoprolol Succinate 25 mg XL Tab PO SCH (09:36)
[2017-12-07] MEDS: Multivitamin With Minerals Tab PO SCH (09:36)
--- NOTE | 2017-12-07 14:58 | CP.PCM.PN ---
<Vikash Marroquin - Last Filed: 12/07/17 15:52> Subjective - Date & Time of Evaluation Date of Evaluation: 12/07/17 Time of Evaluation: 07:30 - Subjective Subjective: IM Progress Note for Hospitalist Service Patient seen and examined at bedside. No acute events overnight. No further blood discharge from his genitals. Denies any acute complaints, still dizzy with ambulation. Pending ANTOINETTE placement. Objective - Vital Signs/Intake and Output Vital Signs (last 24 hours): Temp Pulse Resp BP Pulse Ox 98.8 F 71 20 136/90 96 12/07/17 08:28 12/07/17 08:28 12/07/17 08:28 12/07/17 08:28 12/07/17 08:28 Intake and Output: 12/07/17 12/07/17 06:59 18:59 Intake Total 1260 Output Total 2200 Balance -940 - Medications Medications: Current Medications Atorvastatin Calcium (Lipitor) 40 mg PO HS [facility] Last Admin: 12/06/17 21:40 Dose: 40 mg Ferrous Sulfate (Feosol) 324 mg PO DAILY [facility] Last Admin: 12/07/17 09:37 Dose: 324 mg Folic Acid (Folic Acid) 1 mg PO DAILY [facility] Last Admin: 12/07/17 09:37 Dose: 1 mg Sodium Chloride (Sodium Chloride 0.9%) 1,000 mls @ 100 mls/hr IV .Q10H [facility] Last Admin: 12/06/17 16:07 Dose: 100 mls/hr Insulin Human Regular (Humulin R Med) 0 units SC ACHS CESAR PRN Reason: Protocol Last Admin: 12/07/17 11:43 Dose: Not Given Lorazepam (Ativan) 2 mg IVP Q4H PRN; Protocol PRN Reason: Symptoms of alcohol withdrawl Methadone HCl (Methadone) 130 mg PO DAILY [facility] Last Admin: 12/07/17 09:36 Dose: 130 mg Metoprolol Succinate (Toprol Xl) 25 mg PO BRK [facility] Last Admin: 12/07/17 09:36 Dose: 25 mg Multivitamins/Minerals (Therapeutic-M Tab) 1 tab PO 0800 [facility] Last Admin: 12/07/17 09:36 Dose: 1 tab Ondansetron HCl (Zofran Inj) 4 mg IVP Q6H PRN PRN Reason: Nausea/Vomiting Last Admin: 12/07/17 08:40 Dose: 4 mg Pantoprazole Sodium (Protonix Ec Tab) 40 mg PO 0600 [facility] Last Admin: 12/07/17 05:51 Dose: 40 mg Thiamine HCl (Vitamin B1 Tab) 100 mg PO DAILY [facility] Last Admin: 12/07/17 09:36 Dose: 100 mg - Labs Labs: 12/07/17 05:30 12/07/17 05:30 PT 10.4 SECONDS (9.4-12.5) 12/04/17 16:20 INR 0.91 (0.93-1.08) L 12/04/17 16:20 APTT 27.4 Seconds (25.1-36.5) 12/04/17 16:20 - Additional Findings Additional findings: - Constitutional Appears: Non-toxic, No Acute Distress - Head Exam Head Exam: ATRAUMATIC, NORMAL INSPECTION, NORMOCEPHALIC - Eye Exam Eye Exam: EOMI, Normal appearance - ENT Exam ENT Exam: Mucous Membranes Moist, Normal Exam - Neck Exam Neck Exam: Full ROM, Normal Inspection - Respiratory Exam Respiratory Exam: Clear to Ausculation Bilateral, NORMAL BREATHING PATTERN - Cardiovascular Exam Cardiovascular Exam: REGULAR RHYTHM, +S1, +S2 - GI/Abdominal Exam GI & Abdominal Exam: Soft. absent: Distended, Firm, Guarding, Tenderness - Extremities Exam Extremities Exam: Normal Inspection. absent: Tenderness - Neurological Exam Neurological Exam: Alert, Awake, moving extremities spontaneously, motor grossly intact and equal, no dizziness evident sitting in bed or with head movement - Psychiatric Exam Psychiatric exam: Normal Affect, Normal Mood - Skin Skin Exam: Dry, Intact, Normal Color, Warm Assessment and Plan - Assessment and Plan (Free Text) Assessment: This is a 52 yo M with PMH of HTN, HLD, anemia, polysubstance abuse, aortic dissection repair, and recurrent pancreatitis who was admitted for Right-sided weakness and facial droop, with some residual right sided weakness and withdrawal symptoms. He was also found to be acutely hypoglycemic at time, which was corrected and greatly improved his neurologic symptoms, highly suggestive for hypoglycemic hemiplegia syndrome. Plan: 1) Right Sided Weakness/Facial Droop - resolved -hypoglycemic hemiplegia syndrome vs stroke vs TIA -Head/Neck CTA w/chronic at aortic dissection extending into proximal left subclavian-unchanged, Calcified plaques in both carotid bifurcations w/o stenosis. -CTA brain negative -EKG and CXR unremarkable -continue ASA, Lipitor, Toprol XL -Cont Neuro Checks -Lipid Panel - WNL -MRI notable for focal atrophy in R frontal lobe, small scattered hemosiderin deposits consistent with angiopathy (NOT amyloid), no acute stroke -C-Peptide low, concerning for possible exogenous insulin use (insulin not listed on home meds), but low insulin level as well, possibly islet cell destruction 2/2 chronic pancreatitis -A1c - 4.5, so not a diabetic -continue Accuchecks and ISS 2) Hypoglycemic episodes -40's on presentation, multiple episodes of 80's-90's since admit despite eating well -C-peptide low, Insulin level low -A1c 4.5 -possible dmg to beta-islet cells 2/2 chronic pancreatitis 2/2 alcohol abuse? -Endo consulted, appreciate all recs -hypoglycemia protocol initiated 3) Urethral bleeding - resolved -No further episodes -Urology consult- appreciate recs; no acute intervention indicated -testicular US only notable for small bilateral hydrocele 4) Transaminitis - improved, stable but not resolved -like 2/2 ETOH abuse -continue to monitor 5) Chest Pain - resolved -EKG was NSR -Trops neg x 3 -Cardio consulted, appreciate their recs -tele discontinued 6) Hx of Polysubstance Abuse/Elevated EtOH -CIWA Protocol, AM score 0 -Neuro Checks -Seizure precautions -Methadone dose of 130mg daily (confirmed with [facility]) -continue Folic Acid, MV, B1 -continue Ativan PRN 7) Hx of Anemia -Cont home med-Ferrous Sulfate 324 Daily 8) Hx of HTN -continue home Metoprolol Dispo: tele, pending Endo eval and recs, pending ANTOINETTE, but difficult placement as per CM due to methadone use FEN: HHD, Hypoglycemia protocol Access: Peripheral IV Consults: Cardio, Neuro, Urology, Endo Ppx: Protonix for GI, SCDs for DVT Patient seen, examined, and reviewed with attending, Dr. Healy. <Karina Healy - Last Filed: 12/07/17 18:01> Objective - Vital Signs/Intake and Output Vital Signs (last 24 hours): Temp Pulse Resp BP Pulse Ox 98.8 F 71 20 136/90 96 12/07/17 08:28 12/07/17 08:28 12/07/17 08:28 12/07/17 08:28 12/07/17 08:28 Intake and Output: 12/07/17 12/07/17 06:59 18:59 Intake Total 1260 Output Total 2200 Balance -940 - Medications Medications: Current Medications Atorvastatin Calcium (Lipitor) 40 mg PO HS [facility] Last Admin: 12/06/17 21:40 Dose: 40 mg Dextrose (Dextrose 50% Inj) 0 ml IV STAT PRN; Protocol PRN Reason: Hypoglycemia Protocol Ferrous Sulfate (Feosol) 324 mg PO DAILY [facility] Last Admin: 12/07/17 09:37 Dose: 324 mg Folic Acid (Folic Acid) 1 mg PO DAILY [facility] Last Admin: 12/07/17 09:37 Dose: 1 mg Sodium Chloride (Sodium Chloride 0.9%) 1,000 mls @ 100 mls/hr IV .Q10H [facility] Last Admin: 12/06/17 16:07 Dose: 100 mls/hr Dextrose (Dextrose 5% In Water 1000 Ml) 1,000 mls @ 0 mls/hr IV .Q0M PRN; Protocol; Per Protocol PRN Reason: Hypoglycemia Protocol Insulin Human Lispro (Humalog Low) 0 units SC ACHS [facility] PRN Reason: Protocol Lorazepam (Ativan) 2 mg IVP Q4H PRN; Protocol PRN Reason: Symptoms of alcohol withdrawl Methadone HCl (Methadone) 130 mg PO DAILY [facility] Last Admin: 12/07/17 09:36 Dose: 130 mg Metoprolol Succinate (Toprol Xl) 25 mg PO BRK [facility] Last Admin: 12/07/17 09:36 Dose: 25 mg Multivitamins/Minerals (Therapeutic-M Tab) 1 tab PO 0800 [facility] Last Admin: 12/07/17 09:36 Dose: 1 tab Ondansetron HCl (Zofran Inj) 4 mg IVP Q6H PRN PRN Reason: Nausea/Vomiting Last Admin: 12/07/17 08:40 Dose: 4 mg Pantoprazole Sodium (Protonix Ec Tab) 40 mg PO 0600 [facility] Last Admin: 12/07/17 05:51 Dose: 40 mg Thiamine HCl (Vitamin B1 Tab) 100 mg PO DAILY [facility] Last Admin: 12/07/17 09:36 Dose: 100 mg - Labs Labs: 12/07/17 05:30 05/03/18 05:30 PT 10.4 SECONDS (9.4-12.5) 12/04/17 16:20 INR 0.91 (0.93-1.08) L 12/04/17 16:20 APTT 27.4 Seconds (25.1-36.5) 12/04/17 16:20 Attending/Attestation - Attestation I have personally seen and examined this patient.: Yes I have fully participated in the care of the patient.: Yes I have reviewed all pertinent clinical information, including history, physical exam and plan: Yes Notes (Text): 12/07/17 17:59 attending note; Patient seen and examined with resident. Patient is alert, awake. denies any abdominal pain. Denies any nausea and vomiting. Tolerating liquid diet. Denies any hematuria. Patient is a 51 year old male with a past medical histoy of polysubstance abuse , on methadone program, hypertension, hyperlipidemia, and chronic pancreatitis is admitted with right-sided weakness secondary to hypoglycemia. resolved immediately after D50 administration. CT head is negative for any acute findings. Less likely TIA. Patient is currently asymptomatic. No focal neurological deficit noted. Started on regular diet. chronic methadone dependency; continue methadone. History of aortic aneurysm repair in the past; noncompliance with follow-up. continue Metoprolol. hematuria; CT abdomen and pelvis is negative for renal stone. Testicular ultrasound is negative. Case discussed with urologist in detail. UA and urine culture ordered. PT evaluation appreciated. Subacute rehabilitation recommended. Case discussed with manager case management/community mental health social worker in detail for discharge planning. upon discharge the patient will follow up with PMD .
[2017-12-07] MEDS: Insulin Lispro (humaLOG) LOW Coverage SC SCH (15:25)
[2017-12-07] MEDS ORDERED: Dextrose 50% SYRINGE Inj (50 ml) IV PRN (16:12)
--- NOTE | 2017-12-07 23:22 | CON ---
DATE: 12/07/2017 ENDOCRINOLOGY CONSULT LOCATION: In room 367. HISTORY OF PRESENT ILLNESS: This is a 52-year-old male with known history of hypertension and dyslipidemia and polysubstance abuse presenting here with sudden onset of right facial weakness followed by a right-sided weakness and was found to have marked hypoglycemia with a finger stick glucose level of 39 mg/dL. He received D50 bolus injections given by the paramedics at the subsequent glucose was 244 in the emergency room as given. FAMILY HISTORY: Positive for hypertension and diabetes. PAST MEDICAL HISTORY: No history of type 2 diabetes, nor any intake of any oral hypoglycemic therapy as noted. History of hypertension and dyslipidemia; history of chronic anemia and significant history of aortic dissection repair some years ago; he also has history of chronic recurrent pancreatitis, most likely related to substance abuse and chronic alcoholism. PAST SURGICAL HISTORY: History of aortic dissection repair in 2014 as noted. SOCIAL HISTORY: Patient has supportive family and admits to polysubstance use with use of heroin and cocaine and currently on the methadone program and takes 130 mg of methadone daily, history of nicotine dependence and smokes half a pack for over 25 years till the present time, also admits to chronic alcoholism and dinks a pint of erika almost on a day-to-day manner. REVIEW OF SYSTEMS: As mentioned above. Admits to generalized body weakness with sudden onset of dizziness and lightheadedness, worse on the day of admission; also admits to bifrontal headaches with sudden onset of visual blurring as noted; also admits to generalized weakness with hypersomnolence and lethargy. No chest pains or palpitations or PND. The oral intake has been variable with nausea and dyspepsia and vague upper abdominal pains. No recent alterations of bowel and urinary patterns. PHYSICAL EXAMINATION: GENERAL/VITAL SIGNS: This is an asthenic male in no apparent distress with a blood pressure of 140/80; pulse of 70 beats per minute, regular; temperature 98; respirations 20; height is 5 feet 8 inches, weight is 132 pounds. HEENT: Head normocephalic. Eyes anicteric with pink conjunctivae. Funduscopy is not possible at this time. Ears, nose and throat otherwise normal. NECK: Supple. Thyroid gland is normal in size. No carotid bruits or cervical adenopathy. CARDIOPULMONARY: Some adynamic precordium. S1, S2 is rapid and regular. LUNGS: Clear to auscultation. ABDOMEN: Flat, soft with positive bowel sounds. EXTREMITIES: No peripheral edema. Pulses are +2 bilaterally. ASSESSMENT: This is a 52-year-old male with sudden onset of symptomatic hypoglycemia with associated neuroglycopenic and hyperadrenergic manifestations of the same and the most common etiology would be the so called "functional hypoglycemia" especially noted postprandially, especially in the setting of chronic alcoholism and polysubstance abuse. We would highly doubt the more remote possibilities of the so-called insulin excess syndromes such as insulinomas or paragangliomas at this time. PLAN OF MANAGEMENT: We will continue the normal saline infusion and if hypoglycemic levels supervene, we will change his IVs to dextrose infusion as indicated. We will obtain the serum insulin and serum C-peptide level to exclude any underlying endogenous endocrine disorders of insulin excess syndromes as mentioned. We will also obtain serial chemistries and supplement accordingly as needed. We will also obtain a hemoglobin A1c to confirm his prior glycemic control and baseline thyroid function studies and serum cortisol and ACTH level will be obtained to exclude any underlying endocrinopathy. We will highly recommend a high-protein six frequent small feeding diet as ordered. We will follow and advise accordingly. Neha Arora MD
[2017-12-07] MEDS: Sodium Chloride 0.9% 1,000 ML IV SCH (23:46)
[2017-12-07 23:52] LABS: PH,URINE 6.5 (4.7-8.0); URINE BILIRUBIN NEGATIVE (NEGATIVE); URINE BLOOD NEGATIVE (NEGATIVE); URINE GLUCOSE (UA) NEGATIVE (NEGATIVE); URINE LEUKOCYTE ESTERASE NEGATIVE Leu/uL (NEGATIVE); URINE PROTEIN NEGATIVE mg/dL (<30 mg/dL)
[2017-12-07 23:55] LABS: URINE APPEARANCE CLEAR (CLEAR); URINE COLOR YELLOW (YELLOW)
[2017-12-08] MEDS: Pantoprazole 40 mg EC Tab PO SCH (05:37)
[2017-12-08 06:05] LABS: BASO # 0.02 K/mm3 (0.0-2.0); BASO % 0.4 % (0.0-3.0); EOS # 0.1 (0.0-0.7); EOS % 3.1 % (1.5-5.0); GRAN # 2.42 (1.4-6.5); GRAN % 52.7 % (50.0-68.0); HEMOGLOBIN 10.9 g/dL (14.0-18.0); LYMPH # 1.4 (1.2-3.4); LYMPH % 31.4 % (22.0-35.0); MEAN CORPUSCULAR HEMOGLOBIN 27.6 pg (25.0-35.0); MEAN CORPUSCULAR HGB CONC 34.9 g/dl (31.0-37.0); MEAN PLATELET VOLUME 9.5 fl (7.0-11.0); MONO # 0.6 (0.1-0.6); MONO % 12.4 % (1.0-6.0); RBC 3.95 10^6/uL (3.5-6.1); RED CELL DISTRIBUTION WIDTH 15.4 % (11.5-14.5); WHITE BLOOD COUNT 4.6 10^3/ul (4.5-11.0)
[2017-12-08 06:38] LABS: ALBUMIN 2.9 g/dL (3.0-4.8); ALT/SGPT 43 U/L (7-56); AST/SGOT 66 U/L (17-59); BLOOD UREA NITROGEN 7 mg/dL (7-21); CALCIUM 8.8 mg/dL (8.4-10.5); GAMMA GLUTAMYL TRANSPEPTIDASE 73 U/L (8-78); GFR AFRICAN-AMERICAN > 60; GFR NON-AFRICAN AMERICAN > 60; HDL CHOLESTEROL 68 mg/dL (29-60); LIPASE 84 U/L (23-300)
[2017-12-08 06:50] LABS: LDL CHOLESTEROL 42 mg/dL (0-129)
[2017-12-08 08:03] VITALS: BP 157/92; PULSE 72; RESP 18; TEMP 98; O2SAT 100
[2017-12-08] MEDS: Insulin Lispro (humaLOG) LOW Coverage SC SCH ×2 (08:10→12:10)
[2017-12-08] MEDS: Metoprolol Succinate 25 mg XL Tab PO SCH (09:12)
[2017-12-08] MEDS: Multivitamin With Minerals Tab PO SCH (09:12)
--- NOTE | 2017-12-08 10:01 | CP.PCM.PN ---
<Charline Dow - Last Filed: 12/08/17 16:08> Subjective - Date & Time of Evaluation Date of Evaluation: 12/08/17 Time of Evaluation: 07:20 - Subjective Subjective: IM Progress Note for Hospitalist Service- Charline Dow, PGY-1 Pt S & E at bedside. Pt w/o acute events overnight. Continues to c/o nausea, right sided weakness, SOB, and double vision, reports shaking of whole body with ambulation. Reports tolerating diet, moving bowels, and sleeping ok. No more bleed per urethra after cessation of blood thinner, seen/evaluated by urology. Objective - Vital Signs/Intake and Output Vital Signs (last 24 hours): Temp Pulse Resp BP Pulse Ox 98.0 F 72 18 157/92 H 100 12/08/17 06:00 12/08/17 06:00 12/08/17 06:00 12/08/17 09:12 12/08/17 06:00 Intake and Output: 12/08/17 12/08/17 06:59 18:59 Intake Total 840 Output Total 500 Balance 340 - Medications Medications: Current Medications Atorvastatin Calcium (Lipitor) 40 mg PO HS [facility] Last Admin: 12/07/17 22:00 Dose: 40 mg Dextrose (Dextrose 50% Inj) 0 ml IV STAT PRN; Protocol PRN Reason: Hypoglycemia Protocol Ferrous Sulfate (Feosol) 324 mg PO DAILY [facility] Last Admin: 12/08/17 09:12 Dose: 324 mg Folic Acid (Folic Acid) 1 mg PO DAILY [facility] Last Admin: 12/08/17 09:12 Dose: 1 mg Sodium Chloride (Sodium Chloride 0.9%) 1,000 mls @ 100 mls/hr IV .Q10H [facility] Last Admin: 12/07/17 23:46 Dose: 100 mls/hr Dextrose (Dextrose 5% In Water 1000 Ml) 1,000 mls @ 0 mls/hr IV .Q0M PRN; Protocol; Per Protocol PRN Reason: Hypoglycemia Protocol Ibuprofen (Motrin Tab) 400 mg PO Q6H PRN PRN Reason: Pain, moderate (4-7) Insulin Human Lispro (Humalog Low) 0 units SC ACHS CESAR PRN Reason: Protocol Last Admin: 12/08/17 08:10 Dose: Not Given Lorazepam (Ativan) 2 mg IVP Q4H PRN; Protocol PRN Reason: Symptoms of alcohol withdrawl Methadone HCl (Methadone) 130 mg PO DAILY [facility] Last Admin: 12/08/17 09:13 Dose: 130 mg Metoprolol Succinate (Toprol Xl) 25 mg PO BRK [facility] Last Admin: 12/08/17 09:12 Dose: 25 mg Multivitamins/Minerals (Therapeutic-M Tab) 1 tab PO 0800 [facility] Last Admin: 12/08/17 09:12 Dose: 1 tab Ondansetron HCl (Zofran Inj) 4 mg IVP Q6H PRN PRN Reason: Nausea/Vomiting Last Admin: 12/08/17 08:12 Dose: 4 mg Pantoprazole Sodium (Protonix Ec Tab) 40 mg PO 0600 [facility] Last Admin: 12/08/17 05:37 Dose: 40 mg Thiamine HCl (Vitamin B1 Tab) 100 mg PO DAILY [facility] Last Admin: 12/08/17 09:12 Dose: 100 mg - Labs Labs: 12/08/17 05:20 12/08/17 05:20 PT 10.4 SECONDS (9.4-12.5) 12/04/17 16:20 INR 0.91 (0.93-1.08) L 12/04/17 16:20 APTT 27.4 Seconds (25.1-36.5) 12/04/17 16:20 - Constitutional Appears: Non-toxic, No Acute Distress - Head Exam Head Exam: ATRAUMATIC, NORMAL INSPECTION, NORMOCEPHALIC - Eye Exam Eye Exam: EOMI, Normal appearance - ENT Exam ENT Exam: Mucous Membranes Moist, Normal Exam - Neck Exam Neck Exam: Full ROM, Normal Inspection - Respiratory Exam Respiratory Exam: Clear to Ausculation Bilateral, NORMAL BREATHING PATTERN - Cardiovascular Exam Cardiovascular Exam: REGULAR RHYTHM - GI/Abdominal Exam GI & Abdominal Exam: Soft, Normal Bowel Sounds. absent: Distended, Firm, Guarding, Rigid, Tenderness - Neurological Exam Neurological Exam: Alert, Awake, CN II-XII Intact, Oriented x3 - Psychiatric Exam Psychiatric exam: Normal Affect, Normal Mood - Skin Skin Exam: Dry, Intact, Normal Color, Warm Assessment and Plan - Assessment and Plan (Free Text) Assessment: 52M w/PMH sig for HTH, HLD, anemia, polysubstance abuse, s/p aortic dissection repair, recurrent pancreatitis admitted for right sided weakness/facial droop w/ hypoglycemia of 39 corrected with improvement in symptoms, continues with residual right sided weakness Plan: Right Sided Weakness/Facial Droop - resolved Head/Neck CTA w/chronic at aortic dissection extending into proximal left subclavian-unchanged, Calcified plaques in both carotid bifurcations w/o stenosis. CTA brain neg EKG and CXR unremarkable continue ASA, Lipitor, Toprol XL Cont Neuro Checks Lipid Panel - WNL MRI notable for focal atrophy in R frontal lobe, small scattered hemosiderin deposits consistent with angiopathy (NOT amyloid), no acute stroke C-Peptide low, concerning for possible exogenous insulin use (insulin not listed on home meds), but low insulin level as well, possibly islet cell destruction 2/2 chronic pancreatitis A1c - 4.5, so not a diabetic continue Accuchecks and ISS Neuro followin - no ASA due to bleeding Arthritic pain Motrin PRN Hypoglycemic episodes 40's on presentation, multiple episodes of 80's-90's since admit despite eating well C-peptide low, Insulin level low A1c 4.5 possible dmg to beta-islet cells 2/2 chronic pancreatitis 2/2 alcohol abuse? Endo recs- 6 small high protein meals per day hypoglycemia protocol initiated D/C IVF Medical Clerk referral Urethral bleeding - resolved No further episodes Urology consult- appreciate recs; no acute intervention indicated testicular US only notable for small B/L hydrocele CT ab neg for masses Transaminitis -improving, stable but not resolved, likely due to ETOH abuse Monitor Chest Pain - resolved EKG NSR Trops neg x 3 Cardio consulted, appreciate recs tele discontinued Hx of Polysubstance Abuse/Elevated EtOH CIWA Protocol, AM score 0 Neuro Checks Seizure precautions Methadone dose of 130mg daily (confirmed with [facility]) continue Folic Acid, MV, B1 continue Ativan PRN ETOH cessation education rendered Hx of Anemia Cont home med-Ferrous Sulfate 324 Daily Hx of HTN continue home Metoprolol Dispo: Med surg, pending cardiology evaluation, pending ANTOINETTE, but difficult placement as per CM due to methadone use/insurance FEN: HHD, Hypoglycemia protocol Access: Peripheral IV Consults: Cardio, Neuro, Urology, Endo, steamboat inspector Ppx: Protonix for GI, SCDs for DVT, no anticoagulation due to bleeding from urethra DW attending Paloma, PGY-1 <Karina Healy - Last Filed: 12/08/17 17:05> Objective - Vital Signs/Intake and Output Vital Signs (last 24 hours): Temp Pulse Resp BP Pulse Ox 98.0 F 72 18 157/92 H 100 12/08/17 06:00 12/08/17 06:00 12/08/17 06:00 12/08/17 09:12 12/08/17 06:00 Intake and Output: 12/08/17 12/08/17 06:59 18:59 Intake Total 840 240 Output Total 500 Balance 340 240 - Medications Medications: Current Medications Atorvastatin Calcium (Lipitor) 40 mg PO HS [facility] Last Admin: 12/07/17 22:00 Dose: 40 mg Dextrose (Dextrose 50% Inj) 0 ml IV STAT PRN; Protocol PRN Reason: Hypoglycemia Protocol Ferrous Sulfate (Feosol) 324 mg PO DAILY [facility] Last Admin: 12/08/17 09:12 Dose: 324 mg Folic Acid (Folic Acid) 1 mg PO DAILY [facility] Last Admin: 12/08/17 09:12 Dose: 1 mg Sodium Chloride (Sodium Chloride 0.9%) 1,000 mls @ 100 mls/hr IV .Q10H [facility] Last Admin: 12/07/17 23:46 Dose: 100 mls/hr Ibuprofen (Motrin Tab) 400 mg PO Q6H PRN PRN Reason: Pain, moderate (4-7) Last Admin: 12/08/17 10:35 Dose: 400 mg Insulin Human Lispro (Humalog Low) 0 units SC ACHS CESAR PRN Reason: Protocol Last Admin: 12/08/17 12:10 Dose: Not Given Lorazepam (Ativan) 2 mg IVP Q4H PRN; Protocol PRN Reason: Symptoms of alcohol withdrawl Methadone HCl (Methadone) 130 mg PO DAILY [facility] Last Admin: 12/08/17 09:13 Dose: 130 mg Metoprolol Succinate (Toprol Xl) 25 mg PO BRK [facility] Last Admin: 12/08/17 09:12 Dose: 25 mg Multivitamins/Minerals (Therapeutic-M Tab) 1 tab PO 0800 [facility] Last Admin: 12/08/17 09:12 Dose: 1 tab Ondansetron HCl (Zofran Inj) 4 mg IVP Q6H PRN PRN Reason: Nausea/Vomiting Last Admin: 12/08/17 08:12 Dose: 4 mg Pantoprazole Sodium (Protonix Ec Tab) 40 mg PO 0600 [facility] Last Admin: 12/08/17 05:37 Dose: 40 mg Thiamine HCl (Vitamin B1 Tab) 100 mg PO DAILY [facility] Last Admin: 12/08/17 09:12 Dose: 100 mg - Labs Labs: 12/08/17 05:20 12/08/17 05:20 PT 10.4 SECONDS (9.4-12.5) 12/04/17 16:20 INR 0.91 (0.93-1.08) L 12/04/17 16:20 APTT 27.4 Seconds (25.1-36.5) 12/04/17 16:20 Attending/Attestation - Attestation I have personally seen and examined this patient.: Yes I have fully participated in the care of the patient.: Yes I have reviewed all pertinent clinical information, including history, physical exam and plan: Yes Notes (Text): 12/08/17 17:04 attending note; Patient seen and examined with resident. Patient is alert, awake. Patient is a 51 year old male with a past medical histoy of polysubstance abuse , on methadone program, hypertension, hyperlipidemia, and chronic pancreatitis is admitted with right-sided weakness secondary to hypoglycemia. resolved immediately after D50 administration. CT head is negative for any acute findings. Patient is currently asymptomatic. No focal neurological deficit noted. complete alcohol cessation is strongly advised. Started on regular diet. chronic methadone dependency; continue methadone. History of aortic aneurysm repair in the past; noncompliance with follow-up. continue Metoprolol. PT evaluation appreciated. Case discussed with manager rn case/licensed master social worker in detail for discharge planning. upon discharge the patient will follow up with PMD . 12/08/17 17:04
--- NOTE | 2017-12-08 14:51 | PN ---
DATE: 12/08/2017 ENDOCRINOLOGY FOLLOWUP NOTE LOCATION: Room 367. SUBJECTIVE: This is a 52-year-old male with polysubstance abuse and presenting here with sudden onset of dizziness and lightheadedness and associated symptomatic hypoglycemia and is now being followed closely for metabolic management. His glucose values today have improved and have ranged from 85-115 mg/dL. His latest chemistries showed a BUN of 7, sodium 139, potassium 3.8, chloride 105, CO2 of 28, glucose 92, and creatinine 0.7. His serum cortisol level is 9.6 mcg/dL with a TSH of 3.05, all of which are basically normal and he really also is clinically euthyroid and euadrenal at this time as noted. So, at this time, we will continue the fingerstick glucose testing as ordered. ASSESSMENT: This is a 52-year-old male with symptomatic hypoglycemia and associated neuroglycopenic and hyperadrenergic manifestations related to possible functional hypoglycemia and may likely be related to a nutritional etiology at this time. Would highly doubt the possibility of endocrine excess syndromes, although the lab reports are pending at this time. PLAN OF MANAGEMENT: We will hold off any kind of hormonal intervention at this time and we will await the completion of the reports of the hormonal profile sent out to a reference lab. In the meantime, we will continue the fingerstick glucose testing as ordered and encourage improved oral intake with high protein diet and six frequent small feedings as noted. We will not require any kind of medical therapy or hormonal intervention at this time. Neha Arora MD
--- NOTE | 2017-12-08 16:09 | CP.PCM.DIS ---
<Charline Dow - Last Filed: 12/08/17 16:18> Provider - Provider Date of Admission: 12/04/17 20:23 Attending physician: Karina Healy MD Primary care physician: Brennen Galvez Jr, MD Consults: urology Neurology endocrinology cardiology Time Spent in preparation of Discharge (in minutes): 45 Hospital Course - Lab Results Lab Results: Micro Results 12/06/17 19:20 Urine,Clean Catch Urine Culture - Final No Growth (<1,000 CFU/ML) 12/05/17 16:30 Urine,Clean Catch Urine Culture - Final No Growth (<1,000 CFU/ML) Most Recent Lab Values WBC 4.6 10^3/ul (4.5-11.0) 12/08/17 05:20 RBC 3.95 10^6/uL (3.5-6.1) 12/08/17 05:20 Hgb 10.9 g/dL (14.0-18.0) L 12/08/17 05:20 Hct 31.2 % (42.0-52.0) L 12/08/17 05:20 MCV 79.0 fl (80.0-105.0) L 12/08/17 05:20 MCH 27.6 pg (25.0-35.0) 12/08/17 05:20 MCHC 34.9 g/dl (31.0-37.0) 12/08/17 05:20 RDW 15.4 % (11.5-14.5) H 12/08/17 05:20 Plt Count 79 10^3/uL (120.0-450.0) L 12/08/17 05:20 MPV 9.5 fl (7.0-11.0) 12/08/17 05:20 Gran % 52.7 % (50.0-68.0) 12/08/17 05:20 Lymph % (Auto) 31.4 % (22.0-35.0) 12/08/17 05:20 Dyer % (Auto) 12.4 % (1.0-6.0) H 12/08/17 05:20 Eos % (Auto) 3.1 % (1.5-5.0) 12/08/17 05:20 Baso % (Auto) 0.4 % (0.0-3.0) 12/08/17 05:20 Gran # 2.42 (1.4-6.5) 12/08/17 05:20 Lymph # (Auto) 1.4 (1.2-3.4) 12/08/17 05:20 Dyer # (Auto) 0.6 (0.1-0.6) 12/08/17 05:20 Eos # (Auto) 0.1 (0.0-0.7) 12/08/17 05:20 Baso # (Auto) 0.02 K/mm3 (0.0-2.0) 12/08/17 05:20 PT 10.4 SECONDS (9.4-12.5) 12/04/17 16:20 INR 0.91 (0.93-1.08) L 12/04/17 16:20 APTT 27.4 Seconds (25.1-36.5) 12/04/17 16:20 Sodium 139 mmol/L (132-148) 12/08/17 05:20 Potassium 3.8 mmol/L (3.6-5.0) 12/08/17 05:20 Chloride 105 mmol/L (98-107) 12/08/17 05:20 Carbon Dioxide 28 mmol/L (21-33) 12/08/17 05:20 Anion Gap 10 (10-20) 12/08/17 05:20 BUN 7 mg/dL (7-21) 12/08/17 05:20 Creatinine 0.7 mg/dl (0.8-1.5) L 12/08/17 05:20 Est GFR ( Amer) > 60 12/08/17 05:20 Est GFR (Non-Af Amer) > 60 12/08/17 05:20 POC Glucose (mg/dL) 115 mg/dL (65-110) H 12/08/17 11:20 Random Glucose 92 mg/dL (70-110) 12/08/17 05:20 Hemoglobin A1c 4.6 % (4.2-6.5) 12/08/17 05:20 Insulin Level 1.3 uIU/mL (2.0-19.6) L 12/04/17 22:25 C-Peptide 0.51 ng/mL (0.80-3.85) L 12/04/17 22:25 Calcium 8.8 mg/dL (8.4-10.5) 12/08/17 05:20 Phosphorus 2.7 mg/dL (2.5-4.5) 12/05/17 06:00 Magnesium 1.8 mg/dL (1.7-2.2) 12/05/17 06:00 Total Bilirubin 0.3 mg/dL (0.2-1.3) 12/08/17 05:20 GGT 73 U/L (8-78) 12/08/17 05:20 AST 66 U/L (17-59) H 12/08/17 05:20 ALT 43 U/L (7-56) 12/08/17 05:20 Alkaline Phosphatase 56 U/L (38-126) 12/08/17 05:20 Troponin I 0.02 ng/mL 12/05/17 06:00 NT-Pro-B Natriuret Pep 233 pg/mL (0-450) 12/04/17 16:20 Total Protein 5.8 g/dL (5.8-8.3) 12/08/17 05:20 Albumin 2.9 g/dL (3.0-4.8) L 12/08/17 05:20 Globulin 2.8 gm/dL 12/08/17 05:20 Albumin/Globulin Ratio 1.0 (1.1-1.8) L 12/08/17 05:20 Triglycerides 61 mg/dL (35-160) 12/08/17 05:20 Cholesterol 138 mg/dL (130-200) 12/08/17 05:20 LDL Cholesterol Direct 42 mg/dL (0-129) 12/08/17 05:20 HDL Cholesterol 68 mg/dL (29-60) H 12/08/17 05:20 Lipase 84 U/L (23-300) 12/08/17 05:20 TSH 3rd Generation 3.05 mIU/mL (0.46-4.68) 12/08/17 05:20 Cortisol AM Sample 9.6 ug/dL (4.46-22.7) 12/08/17 05:20 Urine Color Yellow (YELLOW) 12/07/17 21:16 Urine Appearance Clear (CLEAR) 12/07/17 21:16 Urine pH 6.5 (4.7-8.0) 12/07/17 21:16 Ur Specific [place] 1.010 (1.005-1.035) 12/07/17 21:16 Urine Protein Negative mg/dL (<30 mg/dL) 12/07/17 21:16 Urine Glucose (UA) Negative mg/dL (NEGATIVE) 12/07/17 21:16 Urine Ketones Negative mg/dL (NEGATIVE) 12/07/17 21:16 Urine Blood Negative (NEGATIVE) 12/07/17 21:16 Urine Nitrate Negative (NEGATIVE) 12/07/17 21:16 Urine Bilirubin Negative (NEGATIVE) 12/07/17 21:16 Urine Urobilinogen 1.0 E.U./dL (<1 E.U./dL) H 12/07/17 21:16 Ur Leukocyte Esterase Negative Singh/uL (NEGATIVE) 12/07/17 21:16 Urine Opiates Screen Negative (NEGATIVE) 12/05/17 02:00 Urine Methadone Screen Positive (NEGATIVE) H 12/05/17 02:00 Ur Barbiturates Screen Negative (NEGATIVE) 12/05/17 02:00 Ur Phencyclidine Scrn Negative (NEGATIVE) 12/05/17 02:00 Ur Amphetamines Screen Negative (NEGATIVE) 12/05/17 02:00 U Benzodiazepines Scrn Negative (NEGATIVE) 12/05/17 02:00 U Oth Cocaine Metabols Negative (NEGATIVE) 12/05/17 02:00 U Cannabinoids Screen Negative (NEGATIVE) 12/05/17 02:00 Alcohol, Quantitative 39 mg/dL (0-10) H 12/04/17 16:20 Blood Type A POSITIVE 12/04/17 18:23 Blood Type Confirm A POSITIVE 12/05/17 06:00 Antibody Screen Negative 12/04/17 18:23 BBK History Checked No verified bt 12/04/17 18:23 - Hospital Course Hospital Course: 52M w/PMH sig for past medical history includes hypertension, anemia, hyperlipidemia, polysubstance abuse, aortic dissection repair, and intermittent pancreatitis admitted for right sided weakness, right sided facial in setting of blood sugar of 39. Code stroke initiated with appropriate imaging and intervention. CT brain negative. CXR neg, lipid panel WNL, Neuro checks instituted. Passed swallow eval. Serial EKGs and trops obtained for Chest pain. Trops neg x 3. CIWA protocol implemented. EKG NPt seen/evaluted by neurology, low likelyhood of TIA, MRI ordered . Pt continued on methadone as confirmed by [facility]. Hospital day 2 pt w/brendan sanguinous output via urethra, urology consulted- recommended anticoagulation be discontinued which resulted in resolution. Pt seen/evaluated by cardiology, endocrinology as well for chest pain and diabetes recommendations. Recommendations as per neurology - no anticoagulation or antiplatlet therapy due to low probability of TIA or CVA. Pt with residual weakness, requiring stabilization via rolling walker upon discharge on hospital day 4, otherwise stable and ready for discharge with instructions to follow up with PMD and [facility]. Diagnoses TIA Hypoglycemia Substance abuse Urtheral bleeding ETOH abuse cessation education - Date & Time of H&P Date of H&P: 12/08/17 Time of H&P: 21:37 Discharge Exam - Head Exam Head Exam: ATRAUMATIC, NORMAL INSPECTION, NORMOCEPHALIC - Eye Exam Eye Exam: EOMI, Normal appearance - ENT Exam ENT Exam: Mucous Membranes Moist, Normal Exam - Neck Exam Neck exam: Full Rom, Normal Inspection - Respiratory Exam Respiratory Exam: Clear to PA & Lateral, NORMAL BREATHING PATTERN, UNREMARKABLE - Cardiovascular Exam Cardiovascular Exam: REGULAR RHYTHM, +S1, +S2 - GI/Abdominal Exam GI & Abdominal Exam: Normal Bowel Sounds, Unremarkable. absent: Soft, Tenderness - Extremities Exam Extremities exam: normal inspection - Neurological Exam Neurological exam: Alert, CN II-XII Intact, Oriented x3 - Psychiatric Exam Psychiatric exam: Normal Affect, Normal Mood - Skin Skin Exam: Dry, Intact, Normal Color, Warm Discharge Plan - Discharge Medications Prescriptions: Aspirin [Ecotrin] 81 mg PO DAILY #30 tabec Atorvastatin [Lipitor] 40 mg PO DAILY #30 tab Famotidine [Pepcid] 20 mg PO DAILY #30 tab Ferrous Sulfate [Feosol] 325 mg PO DAILY #30 tab Folic Acid 1 mg PO DAILY #30 tab Metoprolol Succinate XL [Toprol XL] 25 mg PO BRK #30 tab Multivitamin [Daily Value] 1 each PO DAILY #30 tablet Thiamine [Vitamin B1 Tab] 100 mg PO DAILY #30 tab - Follow Up Plan Condition: STABLE Disposition: HOME/ ROUTINE Instructions: High Blood Pressure in Adults, Stroke (DC), Transient Ischemic Attack (DC), Lowering the Risk of Having Another Stroke Additional Instructions: Please to [facility] 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 Please go to [facility] to get refill of your prescriptions as discussed, excluding Methadone, which is distributed by [employer]. Continue on all medications as prescribed. If you have a recurrence of symptoms, please return to hospital. Please call your primary care provider to make a follow up appointment for the next week or 2. Referrals: Brennen Galvze Jr., MD [Primary Care Provider] - Clinical Quality Measures - CQM - Stroke Antithrombotic Prescribed: Medical Contraindication Present Contranindication/Reason for not providing: Risk for Bleeding, Risk for Falling If Other selected, reason for not providing: also low probability for TIA as per neurology, none needed Anticoagulation Prescribed for Atrial Flutter, Atrial Fibrillation and History of:: Not Applicable Contranindication/Reason for not providing: Risk for Bleeding Statin prescribed: Yes - CQM - VTE Did patient receive overlap therapy during hosptialization?: Yes If yes, what was given to the patient?: was on heparin, discontinued when bleeding from urethra If no, please select a reason why?: Risk of Bleeding Is patient being discharged on overlap therapy?: No If no, please select a reason why:: Risk of Bleeding Medical Reason for discharge Overlap Therapy: Yes - CQM - Heart Failure Left Ventricular Function to be assessed after discharge: No AJIT Inhibitor Prescribed: No Beta-Tom Prescribed: Metoprolol Succinate Angiotensin II Receptor Tom Prescribed: No Contraindication/Reason for not providing: not recommended by cardiology AnticoagulationTherapy for Atrial Fibrillation/Atrialflutter: No Contraindication/Reason for not providing: no afib or a flutter Aldosterone Antagonist Prescribed: No Contraindication/Reason for not providing: not indication Hydralazine Nitrate Prescribed: No Contraindication/Reason for not providing: not indication Implantable Cardioverter Defibrillator Therapy: No Contraindication/Reason for not providing: Not indicated Cardiac Resynchronization Therapy Prescribed: No Contraindication/Reason for not providing: not indicated Will be discharged to: Home Follow Up Date (must be within 7 days from discharge): 12/15/17 Follow Up Time: 09:00 - Date & Time of Discharge Summary Date of Discharge Summary: 12/08/17 Time of Discharge Summary: 16:15 <Karina Healy - Last Filed: 12/09/17 09:41> Provider - Provider Date of Admission: 12/04/17 20:23 Attending physician: Karina Healy MD Primary care physician: Brennen Galvez Jr, MD Hospital Course - Lab Results Lab Results: Micro Results 12/06/17 19:20 Urine,Clean Catch Urine Culture - Final No Growth (<1,000 CFU/ML) 12/05/17 16:30 Urine,Clean Catch Urine Culture - Final No Growth (<1,000 CFU/ML) Most Recent Lab Values WBC 4.6 10^3/ul (4.5-11.0) 12/08/17 05:20 RBC 3.95 10^6/uL (3.5-6.1) 12/08/17 05:20 Hgb 10.9 g/dL (14.0-18.0) L 12/08/17 05:20 Hct 31.2 % (42.0-52.0) L 12/08/17 05:20 MCV 79.0 fl (80.0-105.0) L 12/08/17 05:20 MCH 27.6 pg (25.0-35.0) 12/08/17 05:20 MCHC 34.9 g/dl (31.0-37.0) 12/08/17 05:20 RDW 15.4 % (11.5-14.5) H 12/08/17 05:20 Plt Count 79 10^3/uL (120.0-450.0) L 12/08/17 05:20 MPV 9.5 fl (7.0-11.0) 12/08/17 05:20 Gran % 52.7 % (50.0-68.0) 12/08/17 05:20 Lymph % (Auto) 31.4 % (22.0-35.0) 12/08/17 05:20 Dyer % (Auto) 12.4 % (1.0-6.0) H 12/08/17 05:20 Eos % (Auto) 3.1 % (1.5-5.0) 12/08/17 05:20 Baso % (Auto) 0.4 % (0.0-3.0) 12/08/17 05:20 Gran # 2.42 (1.4-6.5) 12/08/17 05:20 Lymph # (Auto) 1.4 (1.2-3.4) 12/08/17 05:20 Dyer # (Auto) 0.6 (0.1-0.6) 12/08/17 05:20 Eos # (Auto) 0.1 (0.0-0.7) 12/08/17 05:20 Baso # (Auto) 0.02 K/mm3 (0.0-2.0) 12/08/17 05:20 PT 10.4 SECONDS (9.4-12.5) 12/04/17 16:20 INR 0.91 (0.93-1.08) L 12/04/17 16:20 APTT 27.4 Seconds (25.1-36.5) 12/04/17 16:20 Sodium 139 mmol/L (132-148) 12/08/17 05:20 Potassium 3.8 mmol/L (3.6-5.0) 12/08/17 05:20 Chloride 105 mmol/L (98-107) 12/08/17 05:20 Carbon Dioxide 28 mmol/L (21-33) 12/08/17 05:20 Anion Gap 10 (10-20) 12/08/17 05:20 BUN 7 mg/dL (7-21) 12/08/17 05:20 Creatinine 0.7 mg/dl (0.8-1.5) L 12/08/17 05:20 Est GFR ( Amer) > 60 12/08/17 05:20 Est GFR (Non-Af Amer) > 60 12/08/17 05:20 POC Glucose (mg/dL) 115 mg/dL (65-110) H 12/08/17 11:20 Random Glucose 92 mg/dL (70-110) 12/08/17 05:20 Hemoglobin A1c 4.6 % (4.2-6.5) 12/08/17 05:20 Insulin Level 1.3 uIU/mL (2.0-19.6) L 12/04/17 22:25 C-Peptide 0.51 ng/mL (0.80-3.85) L 12/04/17 22:25 Calcium 8.8 mg/dL (8.4-10.5) 12/08/17 05:20 Phosphorus 2.7 mg/dL (2.5-4.5) 12/05/17 06:00 Magnesium 1.8 mg/dL (1.7-2.2) 12/05/17 06:00 Total Bilirubin 0.3 mg/dL (0.2-1.3) 12/08/17 05:20 GGT 73 U/L (8-78) 12/08/17 05:20 AST 66 U/L (17-59) H 12/08/17 05:20 ALT 43 U/L (7-56) 12/08/17 05:20 Alkaline Phosphatase 56 U/L (38-126) 12/08/17 05:20 Troponin I 0.02 ng/mL 12/05/17 06:00 NT-Pro-B Natriuret Pep 233 pg/mL (0-450) 12/04/17 16:20 Total Protein 5.8 g/dL (5.8-8.3) 12/08/17 05:20 Albumin 2.9 g/dL (3.0-4.8) L 12/08/17 05:20 Globulin 2.8 gm/dL 12/08/17 05:20 Albumin/Globulin Ratio 1.0 (1.1-1.8) L 12/08/17 05:20 Triglycerides 61 mg/dL (35-160) 12/08/17 05:20 Cholesterol 138 mg/dL (130-200) 12/08/17 05:20 LDL Cholesterol Direct 42 mg/dL (0-129) 12/08/17 05:20 HDL Cholesterol 68 mg/dL (29-60) H 12/08/17 05:20 Lipase 84 U/L (23-300) 12/08/17 05:20 TSH 3rd Generation 3.05 mIU/mL (0.46-4.68) 12/08/17 05:20 Cortisol AM Sample 9.6 ug/dL (4.46-22.7) 12/08/17 05:20 Urine Color Yellow (YELLOW) 12/07/17 21:16 Urine Appearance Clear (CLEAR) 12/07/17 21:16 Urine pH 6.5 (4.7-8.0) 12/07/17 21:16 Ur Specific [place] 1.010 (1.005-1.035) 12/07/17 21:16 Urine Protein Negative mg/dL (<30 mg/dL) 12/07/17 21:16 Urine Glucose (UA) Negative mg/dL (NEGATIVE) 12/07/17 21:16 Urine Ketones Negative mg/dL (NEGATIVE) 12/07/17 21:16 Urine Blood Negative (NEGATIVE) 12/07/17 21:16 Urine Nitrate Negative (NEGATIVE) 12/07/17 21:16 Urine Bilirubin Negative (NEGATIVE) 12/07/17 21:16 Urine Urobilinogen 1.0 E.U./dL (<1 E.U./dL) H 12/07/17 21:16 Ur Leukocyte Esterase Negative Singh/uL (NEGATIVE) 12/07/17 21:16 Urine Opiates Screen Negative (NEGATIVE) 12/05/17 02:00 Urine Methadone Screen Positive (NEGATIVE) H 12/05/17 02:00 Ur Barbiturates Screen Negative (NEGATIVE) 12/05/17 02:00 Ur Phencyclidine Scrn Negative (NEGATIVE) 12/05/17 02:00 Ur Amphetamines Screen Negative (NEGATIVE) 12/05/17 02:00 U Benzodiazepines Scrn Negative (NEGATIVE) 12/05/17 02:00 U Oth Cocaine Metabols Negative (NEGATIVE) 12/05/17 02:00 U Cannabinoids Screen Negative (NEGATIVE) 12/05/17 02:00 Alcohol, Quantitative 39 mg/dL (0-10) H 12/04/17 16:20 Blood Type A POSITIVE 12/04/17 18:23 Blood Type Confirm A POSITIVE 12/05/17 06:00 Antibody Screen Negative 12/04/17 18:23 BBK History Checked No verified bt 12/04/17 18:23 Attending/Attestation - Attestation I have personally seen and examined this patient.: Yes I have fully participated in the care of the patient.: Yes I have reviewed all pertinent clinical information, including history, physical exam and plan: Yes Notes (Text): 12/09/17 09:40 attending note; Patient seen and examined with resident. Patient is alert, awake. Patient is a 51 year old male with a past medical history of polysubstance abuse , on methadone program, hypertension, hyperlipidemia, and chronic pancreatitis is admitted with right-sided weakness secondary to hypoglycemia. resolved immediately after D50 administration. CT head is negative for any acute findings. Patient is currently asymptomatic. No focal neurological deficit noted. complete alcohol cessation is strongly advised. Started on regular diet. chronic methadone dependency; continue methadone. History of aortic aneurysm repair in the past; noncompliance with follow-up. continue Metoprolol. PT evaluation appreciated. will be discharged home with a walker. Case discussed with caser in/manager social work in detail for discharge planning. upon discharge the patient will follow up with PMD .
[2017-12-09 12:39] LABS: C-PEPTIDE 0.78 ng/mL (0.80-3.85)
== END 2017-12-08 17:18 | disposition home or self-care (01) | DRG 296 ==
LOC: ED 14:51 → ERH 20:23 → 2RNO 12-05 00:58 → 3RNO 12-06 16:58
PROVIDERS: ADMIT Hospitalist; ATTEND Internal Medicine
DX: E16.2 Hypoglycemia, unspecified (principal); F11.20 Opioid dependence, uncomplicated; K86.0 Alcohol-induced chronic pancreatitis; I10 Essential (primary) hypertension; F10.20 Alcohol dependence, uncomplicated; D50.9 Iron deficiency anemia, unspecified; R31.9 Hematuria, unspecified; R07.9 Chest pain, unspecified; N43.3 Hydrocele, unspecified; E78.00 Pure hypercholesterolemia, unspecified; K21.9 Gastro-esophageal reflux disease without esophagitis; E78.5 Hyperlipidemia, unspecified; F17.210 Nicotine dependence, cigarettes, uncomplicated; R29.810 Facial weakness; Y90.1 Blood alcohol level of 20-39 mg/100 ml; Z79.82 Long term (current) use of aspirin; Z91.19 Patient's noncompliance with other medical treatment and regimen; Z86.79 Personal history of other diseases of the circulatory system

== ENCOUNTER 2018-01-18 07:23 | Observation (INO) | payer OTHER ==
[2018-01-18 07:38] VITALS: BMI 20.3
[2018-01-18] MEDS ORDERED: Atrop/Hyosc/Scopal/PB Elixir (120 ml) PO STA (07:43)
[2018-01-18] MEDS ORDERED: Sodium Chloride 0.9% 1,000 ML IV STA (07:43)
[2018-01-18] MEDS ORDERED: Alum-Mag Hydrox-Simethicone Susp (30 mL) PO STA (07:43)
--- NOTE | 2018-01-18 07:51 | ED PDOC ---
Arrival/HPI - General Time Seen by Provider: 01/18/18 07:25 Historian: Patient - History of Present Illness Narrative History of Present Illness (Text): 01/18/18 07:43 52 year old male, with past medical history of hypertension, hyperlipidemia, polysubstance abuse (has been clean since 1 year through [facility]), aortic dissection repair, and intermittent pancreatitis, presents to the Emergency department complaining of midsternal chest pain since this morning. Patient describes the pain as "punching" rated currently at 10/10 in severity. Patient currently denies any other complaints. Patient denies any diaphoresis, palpitation, radiation of pain, jaw pain, fever, chills, nausea, vomiting, abdominal pain, shortness of breath or any other complaints. Patient admits to drinking alcohol and smoking cigarettes occasionally. Patient presents to the Emergency department for medical evaluation. Time/Duration: 1-3 hours Symptom Onset: Gradual Symptom Course: Unchanged Quality: Other (Punching) Severity Level: 10 Activities at Onset: Light Context: Home Past Medical History - Provider Review Nursing Documentation Reviewed: Yes - Infectious Disease Hx of Infectious Diseases: None - Tetanus Immunization Tetanus Immunization: Unknown - Cardiac Hx Hypertension: Yes Other/Comment: Aortic aneurysm - Pulmonary Hx Respiratory Disorders: Yes Hx Bronchitis: Yes - Neurological Hx Neurological Disorder: Yes Hx Seizures: Yes - HEENT Hx HEENT Disorder: No - Renal Hx Renal Disorder: No - Endocrine/Metabolic Hx Endocrine Disorders: Yes Other/Comment: hypoglycemia - Hematological/Oncological Hx Blood Disorders: Yes Hx Anemia: Yes (iron deficiency) - Integumentary Other/Comment: dry skin both feet/ankles - Musculoskeletal/Rheumatological Hx Musculoskeletal Disorders: Yes Hx Falls: Yes - Gastrointestinal Hx Gastrointestinal Disorders: Yes Hx Gastroesophageal Reflux: Yes Hx Pancreatitis: Yes Other/Comment: colonoscopy 07/21/17: redundant colon and internal hemorrhoids - Genitourinary/Gynecological Hx Genitourinary Disorders: Yes Hx Urinary Tract Infection: Yes - Psychiatric Hx Psychophysiologic Disorder: Yes (H/O HEROINE ABUSE,SNORTED) Hx Substance Use: Yes (quit snorting heroine "3 months ago" pt stated) Other/Comment: quit snorting heroine "about 4 months ago" pt stated. 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 - Anesthesia Hx Anesthesia: Yes Hx Anesthesia Reactions: No Hx Malignant Hyperthermia: No - Suicidal Assessment Feels Threatened In Home Enviroment: No Family/Social History - Physician Review Nursing Documentation Reviewed: Yes Family/Social History: No Known Family HX Smoking Status: Heavy Smoker > 10 Cigarettes Daily Hx Alcohol Use: Yes (1 pint of erika occasionally) Frequency of alcohol use: Daily Hx Substance Use: Yes (quit snorting heroine "3 months ago" pt stated) Substance used: heroin Hx Substance Use Treatment: Yes Allergies/Home Meds Allergies/Adverse Reactions: Allergies No Known Allergies Allergy (Verified 01/18/18 07:45) Home Medications: Home Meds Medication Instructions Recorded Confirmed No Known Home Med 01/18/18 01/18/18 Review of Systems - Physician Review All systems were reviewed & negative as marked: Yes - Review of Systems Constitutional: Normal. absent: Fevers Eyes: Normal ENT: Normal Respiratory: Normal. absent: SOB Cardiovascular: Chest Pain (midsternal). absent: Palpitations Gastrointestinal: Normal. absent: Abdominal Pain, Diarrhea, Nausea, Vomiting Genitourinary Male: Normal Musculoskeletal: Normal Skin: Normal Neurological: Normal Endocrine: Normal. absent: Diaphoresis Hemo/Lymphatic: Normal Psychiatric: Normal Physical Exam Vital Signs Reviewed: Yes Vital Signs Temp Pulse Resp BP Pulse Ox 01/18/18 12:12 73 19 144/81 96 01/18/18 12:00 71 18 145/83 95 01/18/18 09:37 95 H 157/70 H 01/18/18 08:08 99.1 F 80 17 147/92 H 99 Temperature: Afebrile Blood Pressure: Hypertensive Pulse: Regular Respiratory Rate: Normal Appearance: Positive for: Well-Appearing, Non-Toxic, Comfortable Pain Distress: None Mental Status: Positive for: Alert and Oriented X 3 - Systems Exam Head: Present: Atraumatic, Normocephalic Pupils: Present: PERRL Extroacular Muscles: Present: EOMI Conjunctiva: Present: Normal Neck: Present: Normal Range of Motion Respiratory/Chest: Present: Clear to Auscultation, Good Air Exchange. No: Respiratory Distress, Accessory Muscle Use Cardiovascular: Present: Regular Rate and Rhythm, Normal S1, S2. No: Murmurs Abdomen: No: Tenderness, Distention, Peritoneal Signs Back: Present: Normal Inspection Upper Extremity: Present: Normal Inspection. No: Cyanosis, Edema Lower Extremity: Present: Normal Inspection. No: Edema Neurological: Present: GCS=15, CN II-XII Intact, Speech Normal Skin: Present: Warm, Dry, Normal Color. No: Rashes Psychiatric: Present: Alert, Oriented x 3, Normal Insight, Normal Concentration Medical Decision Making ED Course and Treatment: 01/18/18 07:39 Impression: 52 year old male presents to the Emergency department for midsternal chest pain. Plan: -- Labs -- EKG -- Chest X-ray -- Aspirin -- Atropine -- Lopressor -- Nitroglycerin -- Aluminum Hydroxide -- IV Fluids -- Urinalysis -- Reassess and disposition Prior Visits: Notes and results from previous visits were reviewed. Progress Notes: 01/18/18 07:40 EKG: Ordered, reviewed, and independently interpreted the EKG. Rate : 75 BPM Rhythm : NSR Interpretation : Prolonged QT. 01/18/18 08:30 Chest X-ray reviewed by radiologist, shows: FINDINGS: LUNGS: No active pulmonary disease. PLEURA: No significant pleural effusion identified, no pneumothorax apparent. CARDIOVASCULAR: Sternotomy wires. Normal heart size. No congestive change. OSSEOUS STRUCTURES: No significant abnormalities. VISUALIZED UPPER ABDOMEN: Normal. OTHER FINDINGS: None. IMPRESSION: No active disease. 01/18/18 13:57 CT of Chest reviewed by radiologist, shows: FINDINGS: PULMONARY ARTERIES: Unremarkable. No pulmonary embolism. AORTA: There is a chronic aortic dissection which is unchanged in appearance. This can be seen beginning in the ascending aorta at the junction with the aortic arch. There has been previous surgical repair. LUNGS: Unremarkable. No nodule, mass or pulmonary consolidation. PLEURAL SPACES: Unremarkable. No effusion or pneuomothorax. HEART: Unremarkable. No cardiomegaly. No significant pericardial effusion. LYMPH NODES: No lymphadenopathy. BONES, CHEST WALL: Unremarkable. No fracture or destructive lesion OTHER FINDINGS: Unremarkable. IMPRESSION: Unremarkable CT pulmonary angiogram. No pulmonary embolus. There is a chronic aortic dissection which is unchanged in appearance. This can be seen beginning in the ascending aorta at the junction with the aortic arch. There has been previous surgical repair. - Lab Interpretations Lab Results: 01/18/18 07:57 01/18/18 07:57 Lab Results 01/18/18 07:57: Alcohol, Quantitative 26 H 01/18/18 07:57: Sodium 145, Potassium 3.9, Chloride 105, Carbon Dioxide 27, Anion Gap 17, BUN 9, Creatinine 0.5 L, Est GFR ( Amer) > 60, Est GFR (Non -Af Amer) > 60, Random Glucose 60 L, Calcium 8.8, Total Bilirubin 0.2, AST 50, ALT 29, Alkaline Phosphatase 113, Lactate Dehydrogenase 540, Total Creatine Kinase 68, Troponin I < 0.01 D, NT-Pro-B Natriuret Pep 133, Total Protein 7.2, Albumin 3.8, Globulin 3.5, Albumin/Globulin Ratio 1.1, Lipase 46 01/18/18 07:57: PT 12.3, INR 1.07, D-Dimer, Quantitative 3085 H 01/18/18 07:57: WBC 6.2 D, RBC 4.30, Hgb 11.6 L, Hct 32.7 L, MCV 76.0 L D, MCH 27.0, MCHC 35.5, RDW 16.4 H, Plt Count 159, MPV 9.3, Gran % 80.3 H, Lymph % ( Auto) 13.2 L, [place] % (Auto) 5.8, Eos % (Auto) 0.2 L, Baso % (Auto) 0.5, Gran # 4.99, Lymph # (Auto) 0.8 L, [place] # (Auto) 0.4, Eos # (Auto) 0.0, Baso # (Auto) 0.03 01/18/18 07:39: Urine Opiates Screen Negative, Urine Methadone Screen Positive H , Ur Barbiturates Screen Negative, Ur Phencyclidine Scrn Negative, Ur Amphetamines Screen Negative, U Benzodiazepines Scrn Negative, U Oth Cocaine Metabols Negative, U Cannabinoids Screen Negative 01/18/18 07:39: Urine Color Yellow, Urine Appearance Clear, Urine pH 6.0, Ur Specific [place] 1.025, Urine Protein 30 H, Urine Glucose (UA) Negative, Urine Ketones 15 H, Urine Blood Negative, Urine Nitrate Negative, Urine Bilirubin Negative, Urine Urobilinogen 0.2, Ur Leukocyte Esterase Negative, Urine RBC 0 - 2, Urine WBC 0 - 2, Ur Epithelial Cells None, Amorphous Sediment Few, Urine Bacteria Mod, Fine Granular Casts 0 - 2, Coarse Granular Casts Trace H - RAD Interpretation Radiology Orders: 01/18/18 07:39 CHEST PORTABLE [RAD] Stat 01/18/18 11:21 ANGIO CHEST PE PROTOCOL [CT] Stat Curbstone Setter: Radiologist - EKG Interpretation Interpreted by ED Physician: Yes Type: 12 lead EKG - Medication Orders Current Medication Orders: Discontinued Medications Al Hydrox/Mg Hydrox/Simethicone (Maalox Plus 30 Ml) 30 ml PO STAT STA Stop: 01/18/18 07:44 Last Admin: 01/18/18 09:38 Dose: 30 ml Aspirin (Aspirin Chewable) 324 mg PO STAT STA Stop: 01/18/18 07:40 Last Admin: 01/18/18 09:36 Dose: 324 mg Belladonna/Phenobarbital ( Elixir) 5 ml PO STAT STA Stop: 01/18/18 07:44 Last Admin: 01/18/18 09:37 Dose: 5 ml Chlordiazepoxide (Librium) 50 mg PO STAT STA PRN Reason: Protocol Stop: 01/18/18 14:02 Sodium Chloride (Sodium Chloride 0.9%) 1,000 mls @ 999 mls/hr IV .Q1H1M STA Stop: 01/18/18 08:43 Last Admin: 01/18/18 09:38 Dose: 999 mls/hr eMAR Start Stop Document 01/18/18 09:38 [email or web address] (Rec: 01/18/18 09:38 [email or web address] [id number]) Intravenous Solution Start Date 01/18/18 Start Time 09:38 Lidocaine HCl (Lidocaine 2% Viscous) 15 ml MM STAT STA Stop: 01/18/18 07:44 Last Admin: 01/18/18 09:38 Dose: 15 ml Lorazepam (Ativan) 2 mg IVP ONCE ONE PRN Reason: Protocol Stop: 01/18/18 14:02 Metoprolol Tartrate (Lopressor) 25 mg PO STAT STA Stop: 01/18/18 07:40 Last Admin: 01/18/18 09:37 Dose: 25 mg MAR Pulse and Blood Pressure Document 01/18/18 09:37 [email or web address] (Rec: 01/18/18 09:37 [email or web address] [id number]) Pulse Pulse Rate (60-90) 95 Blood Pressure Blood Pressure (100/60-150/90) 157/70 Nitroglycerin (Nitrostat Sl Tab) 0.4 mg SL STAT STA Stop: 01/18/18 07:40 Last Admin: 01/18/18 09:37 Dose: 0.4 mg - Scribe Statement The provider has reviewed the documentation as recorded by the Scribe Rick Jack. All medical record entries made by the Scribe were at my direction and personally dictated by me. I have reviewed the chart and agree that the record accurately reflects my personal performance of the history, physical exam, medical decision making, and the department course for this patient. I have also personally directed, reviewed, and agree with the discharge instructions and disposition. Disposition/Present on Arrival - Present on Arrival Any Indicators Present on Arrival: No History of DVT/PE: No History of Uncontrolled Diabetes: No Urinary Catheter: No History of Decub. Ulcer: No History Surgical Site Infection Following: None - Disposition Have Diagnosis and Disposition been Completed?: Yes Diagnosis: Chest pain, Alcohol withdrawal Disposition: HOSPITALIZED Disposition Time: 15:38 Patient Plan: Admission, Telemetry Condition: FAIR Discharge Instructions (ExitCare): Chest Pain (ED) [facility] - Follow up with primary
[2018-01-18 08:08] LABS: BASO # 0.03 K/mm3 (0.0-2.0); BASO % 0.5 % (0.0-3.0); EOS % 0.2 % (1.5-5.0); GRAN # 4.99 (1.4-6.5); GRAN % 80.3 % (50.0-68.0); HEMOGLOBIN 11.6 g/dL (14.0-18.0); LYMPH # 0.8 (1.2-3.4); LYMPH % 13.2 % (22.0-35.0); MEAN CORPUSCULAR HGB CONC 35.5 g/dl (31.0-37.0); MEAN PLATELET VOLUME 9.3 fl (7.0-11.0); MONO # 0.4 (0.1-0.6); MONO % 5.8 % (1.0-6.0); RBC 4.3 10^6/uL (3.5-6.1); RED CELL DISTRIBUTION WIDTH 16.4 % (11.5-14.5); WHITE BLOOD COUNT 6.2 10^3/ul (4.5-11.0)
[2018-01-18 08:18] LABS: ALB/GLOB RATIO 1.1 (1.1-1.8); ALBUMIN 3.8 g/dL (3.0-4.8); ALT/SGPT 29 U/L (7-56); AST/SGOT 50 U/L (17-59); BLOOD UREA NITROGEN 9 mg/dL (7-21); CALCIUM 8.8 mg/dL (8.4-10.5); GFR AFRICAN-AMERICAN > 60; GFR NON-AFRICAN AMERICAN > 60; LIPASE 46 U/L (23-300)
--- NOTE | 2018-01-18 08:18 | RAD ---
HISTORY: chest pain COMPARISON: 12/04/2017 FINDINGS: LUNGS: No active pulmonary disease. PLEURA: No significant pleural effusion identified, no pneumothorax apparent. CARDIOVASCULAR: Sternotomy wires. Normal heart size. No congestive change. OSSEOUS STRUCTURES: No significant abnormalities. VISUALIZED UPPER ABDOMEN: Normal. OTHER FINDINGS: None. IMPRESSION: No active disease.
[2018-01-18 08:30] LABS: B-TYPE NATRIURETIC PEPTIDE 133 pg/mL (0-450); TROPONIN I < 0.01 ng/mL
[2018-01-18 08:44] LABS: INR 1.07 (0.93-1.08); PROTHROMBIN TIME 12.3 SECONDS (9.4-12.5)
[2018-01-18 11:54] LABS: PHENCYCLIDINE, UR NEGATIVE (NEGATIVE)
[2018-01-18 11:58] LABS: BARBITURATES, UR NEGATIVE (NEGATIVE); BENZODIAZEPINES, UR NEGATIVE (NEGATIVE); OPIATES, UR NEGATIVE (NEGATIVE)
[2018-01-18] MEDS ORDERED: Iohexol 350 MG/100 ML VIAL ONE (12:06)
[2018-01-18 12:09] LABS: URINE BILIRUBIN NEGATIVE (NEGATIVE); URINE BLOOD NEGATIVE (NEGATIVE); URINE GLUCOSE (UA) NEGATIVE (NEGATIVE); URINE LEUKOCYTE ESTERASE NEGATIVE Leu/uL (NEGATIVE); URINE PROTEIN 30 mg/dL (<30 mg/dL); URINE UROBILINOGEN 0.2 E.U./dL (<1 E.U./dL)
[2018-01-18 12:11] LABS: URINE APPEARANCE CLEAR (CLEAR); URINE COLOR YELLOW (YELLOW)
[2018-01-18 12:32] LABS: URINE BACTERIA MOD (NEG); URINE RBC 0 - 2 /hpf (0-2); URINE WBC 0 - 2 /hpf (0-6)
[2018-01-18 12:33] LABS: URINE FINE GRANULAR CAST 0 - 2 /hpf (0-2)
[2018-01-18 12:34] LABS: URINE AMORPHOUS SEDIMENT FEW; URINE COARSE GRANULAR CAST TRACE /hpf (0-2)
--- NOTE | 2018-01-18 13:34 | CT ---
PROCEDURE: CT Chest with contrast (Pulmonary Angiogram) HISTORY: Positive D-Dimer, Hx of IVDU, Chest Pain COMPARISON: CT of the chest dated 05/18/2017 TECHNIQUE: Axial computed tomography images were obtained of the chest in the pulmonary arterial phase of enhancement. Coronal and sagittal reformatted images were created and reviewed. This CT exam was performed using one or more of the following dose reduction techniques: Automated exposure control, adjustment of the mA and/or kV according to patient size, and/or use of iterative reconstruction technique. Intravenous contrast dose: 100 cc of Omni 350 Radiation dose: Total exam DLP = 307 mGy-cm. FINDINGS: PULMONARY ARTERIES: Unremarkable. No pulmonary embolism. AORTA: There is a chronic aortic dissection which is unchanged in appearance. This can be seen beginning in the ascending aorta at the junction with the aortic arch. There has been previous surgical repair. LUNGS: Unremarkable. No nodule, mass or pulmonary consolidation. PLEURAL SPACES: Unremarkable. No effusion or pneuomothorax. HEART: Unremarkable. No cardiomegaly. No significant pericardial effusion. LYMPH NODES: No lymphadenopathy. BONES, CHEST WALL: Unremarkable. No fracture or destructive lesion OTHER FINDINGS: Unremarkable. IMPRESSION: Unremarkable CT pulmonary angiogram. No pulmonary embolus. There is a chronic aortic dissection which is unchanged in appearance. This can be seen beginning in the ascending aorta at the junction with the aortic arch. There has been previous surgical repair.
[2018-01-18] MEDS ORDERED: Dextrose 50% SYRINGE Inj (50 ml) ONE (15:59)
[2018-01-18] MEDS ORDERED: Multivitamin (MVI) 10 ML, Thiamine 100 MG, Folic Acid 1 MG in Sodium Chloride 0.9% 1,00... IV ONE (16:14)
[2018-01-18] MEDS ORDERED: Dextrose 50% SYRINGE Inj (50 ml) IVP STA (17:05)
[2018-01-18] MEDS ORDERED: Dextrose 50% SYRINGE Inj (50 ml) IVP PRN (18:02)
--- NOTE | 2018-01-18 18:18 | CP.PCM.HP ---
<Kate Loredo - Last Filed: 01/18/18 17:50> History of Present Illness - History of Present Illness History of Present Illness: Kate Loredo, PGY1, Progress Note for Dr Reece: CC: chest pain 52 year old male with PMH chronic pancreatitis, aortic dissection s/p repair ( 2015 at [facility]), HTN, anemia, HLD, polysubstance abuse, alcohol abuse, presents for chest pain/epigastric pain, presents for chest pain that started at 5 AM today. Pt states that it woke him up from sleep, describes it as "pounding," constant, denies trauma, sob, chills, fever, palpitations, diaphoresis, vomiting. Reports epigastric pain, mild nausea, and poor appetite today. Denies headache, neck pain, abdominal pain, diarrhea, constipation, urinary symptoms, leg swelling. Pt's last stress test in [address] [facility]. Echo 2017 EF 61%. mild concentric LVH. mild TR. In ED, pt afebrile, vitals stable, blood glucose 40s -> given D50 with BG in 120s. EKG showed NSR with initial trop negative. D dimer elevated, Chest CT neg for PE. Give maalox, viscous lidocaine, librium 50 mg PO, ASA 325 mg, nitro SL, 1L NS bolus. 12 point ROS obtained and negative, except as per HPI. PMD: [facility] Pharmacy: [facility] - [facility] PMH: hypertension, anemia, hyperlipidemia, polysubstance abuse, aortic dissection repair, and intermittent pancreatitis PSHx: aortic dissection repair (2014) Allergies: NKDA SocialHx: 1/2 PPD for 25 years, Admits to a Pint of [place] everyother Day, Unemployed, lives in [place] [facility]: 2 months ago for pancreatitis FamHx: Sister-CVA Meds: Reviewed Prev visits: TIA, hypoglycemia, urethral bleeding on 12/08/17 Methadone: [facility] 130 mg PO daily Present on Admission - Present on Admission Any Indicators Present on Admission: No History of DVT/PE: No History of Uncontrolled Diabetes: No Urinary Catheter: No Decubitus Ulcer Present: No Review of Systems - Review of Systems All systems: reviewed and no additional remarkable complaints except Review of Systems: as per HPI Past Patient History - Infectious Disease Hx of Infectious Diseases: None - Tetanus Immunizations Tetanus Immunization: Unknown - Past Medical History & Family History Past Medical History?: Yes - Past Social History Smoking Status: Heavy Smoker > 10 Cigarettes Daily - CARDIAC Hx Hypertension: Yes Other/Comment: Aortic aneurysm - PULMONARY Hx Respiratory Disorders: Yes Hx Bronchitis: Yes - NEUROLOGICAL Hx Neurological Disorder: Yes Hx Seizures: Yes - HEENT Hx HEENT Problems: No - RENAL Hx Chronic Kidney Disease: No - ENDOCRINE/METABOLIC Hx Endocrine Disorders: Yes Other/Comment: hypoglycemia - HEMATOLOGICAL/ONCOLOGICAL Hx Blood Disorders: Yes Hx Anemia: Yes (iron deficiency) - INTEGUMENTARY Other/Comment: dry skin both feet/ankles - MUSCULOSKELETAL/RHEUMATOLOGICAL Hx Musculoskeletal Disorders: Yes Hx Falls: Yes - GASTROINTESTINAL Hx Gastrointestinal Disorders: Yes Hx Gastroesophageal Reflux: Yes Hx Pancreatitis: Yes Other/Comment: colonoscopy 07/21/17: redundant colon and internal hemorrhoids - GENITOURINARY/GYNECOLOGICAL Hx Genitourinary Disorders: Yes Hx Urinary Tract Infection: Yes - PSYCHIATRIC Hx Psychophysiologic Disorder: Yes (H/O HEROINE ABUSE,SNORTED) Hx Substance Use: Yes (quit snorting heroine "3 months ago" pt stated) Other/Comment: quit snorting heroine "about 4 months ago" pt stated. Pt on [employer] program , drinks 1/2 pt liquor occasionally, smokes 10 cigs a day - SURGICAL HISTORY Hx Open Heart Surgery: Yes (AAA REPAIR) Other/Comment: aneurysm in his chest December 2014, pancreatic pseudocyst abcess drainage 11/14/16 - ANESTHESIA Hx Anesthesia: Yes Hx Anesthesia Reactions: No Hx Malignant Hyperthermia: No Meds Allergies/Adverse Reactions: Allergies Allergy/AdvReac Type Severity Reaction Status Date / Time No Known Allergies Allergy Verified 01/18/18 07:45 Physical Exam - Constitutional Appears: Non-toxic, No Acute Distress - Head Exam Head Exam: ATRAUMATIC, NORMOCEPHALIC - Eye Exam Eye Exam: EOMI, PERRL. absent: Conjunctival injection, Nystagmus, Scleral icterus Pupil Exam: NORMAL ACCOMODATION, PERRL. absent: Fixed, Irregular, Miosis, Unequal - ENT Exam ENT Exam: Mucous Membranes Moist - Neck Exam Neck exam: Positive for: Full Rom - Respiratory Exam Respiratory Exam: Chest Wall Tenderness (TTP in chest area), Clear to Auscultation Bilateral, NORMAL BREATHING PATTERN. absent: Accessory Muscle Use , Rales, Rhonchi, Wheezes, Stridor - Cardiovascular Exam Cardiovascular Exam: RRR, +S1, +S2. absent: Systolic Murmur - GI/Abdominal Exam GI & Abdominal Exam: Normal Bowel Sounds, Soft. absent: Distended, Firm, Guarding, Mass, Organomegaly, Rebound, Rigid, Tenderness - Extremities Exam Extremities exam: Positive for: normal inspection. Negative for: calf tenderness, pedal edema - Back Exam Back exam: NORMAL INSPECTION. absent: CVA tenderness (L), CVA tenderness (R) - Neurological Exam Neurological exam: Alert, Oriented x3 - Psychiatric Exam Psychiatric exam: Normal Affect, Normal Mood - Skin Skin Exam: Diaphoretic, Dry, Normal Color, Warm Results - Vital Signs Recent Vital Signs: Last Vital Signs Temp 98.1 F 01/18/18 17:13 Pulse 84 01/18/18 17:13 Resp 19 01/18/18 17:13 BP 150/74 01/18/18 17:13 Pulse Ox 98 01/18/18 17:13 - Labs Result Diagrams: 01/18/18 07:57 01/18/18 07:57 Labs: Laboratory Results - last 24 hr 01/18/18 01/18/18 01/18/18 15:56 16:36 17:16 POC Glucose (mg/dL) 48 L 165 H 127 H Assessment & Plan - Assessment and Plan (Free Text) Assessment: 52 year old male, with PMH chronic pancreatitis, aortic dissection s/p repair ( 2015 at [facility]), HTN, anemia, HLD, polysubstance abuse, alcohol abuse, presents for chest pain/epigastric pain, found to be in alcohol withdrawal: Chest pain/epigastric pain: 2/2 musculoskeletal vs GERD vs chronic pancreatitis vs r/o ACS - tylenol prn pain - pepcid 40 mg PO hS - lipase normal - reglan achs prn - clear liquid diet - reproducible cp in nature - trop initial negx1 - hgbA1C, tsh, lipid panel - EKG HR 75. NSR. prolonged QTc 460 ms. - serial trops - ASA 81 mg - tele monitoring - Chest CT: neg for PE. chronic dissection - unchanged in appearance, beginning in ascending aorta at junction with aortic arch. - CXR: neg - EKG: HR 75. NSR. prolonged QT. Alcohol intoxication/withdrawal: - CIWA protocol - aspiration/seizure precautions - fall precautions - librium 25 PO q8 - ativan prn - banana bag - folic acid, thiamine, mvt Hypoglycemia: - Fingersticks q2h x4. If stable, can do regular ACHS fingersticks - banana bag will be in D5W - D50 prn for BG<60 - monitor Hx of opiate use: - off drugs for a year - on home Methadone 130 mg daily - monitor Hx of Anemia: Home Ferrous Sulfate 324 Daily Hx of HTN Home Metoprolol PPX: pepcid, scds clear liquid diet Case seen and discussed with Dr Reece. Kate Loredo PGY1 - Date & Time Date: 01/18/18 Time: 18:20 <Juan Reece - Last Filed: 01/19/18 17:25> Results - Vital Signs Recent Vital Signs: Last Vital Signs Temp 98.4 F 01/19/18 11:47 Pulse 91 H 01/19/18 14:00 Resp 20 01/19/18 11:47 BP 133/84 01/19/18 11:47 Pulse Ox 95 01/19/18 06:00 - Labs Result Diagrams: 01/19/18 06:00 01/19/18 06:00 Labs: Laboratory Results - last 24 hr 01/18/18 01/18/18 01/18/18 17:43 19:30 19:30 WBC RBC Hgb Hct MCV MCH MCHC RDW Plt Count MPV Gran % Lymph % (Auto) [place] % (Auto) Eos % (Auto) Baso % (Auto) Gran # Lymph # (Auto) [place] # (Auto) Eos # (Auto) Baso # (Auto) Sodium Potassium Chloride Carbon Dioxide Anion Gap BUN Creatinine Est GFR ( Amer) Est GFR (Non-Af Amer) POC Glucose (mg/dL) 113 H Random Glucose Hemoglobin A1c 5.2 Calcium Total Bilirubin AST ALT Alkaline Phosphatase Troponin I < 0.01 Total Protein Albumin Globulin Albumin/Globulin Ratio Triglycerides Cholesterol LDL Cholesterol Direct HDL Cholesterol Thyroxine (T4) Total T3 TSH 3rd Generation 01/18/18 01/18/18 01/19/18 19:30 21:32 00:40 WBC RBC Hgb Hct MCV MCH MCHC RDW Plt Count MPV Gran % Lymph % (Auto) [place] % (Auto) Eos % (Auto) Baso % (Auto) Gran # Lymph # (Auto) [place] # (Auto) Eos # (Auto) Baso # (Auto) Sodium Potassium Chloride Carbon Dioxide Anion Gap BUN Creatinine Est GFR ( Amer) Est GFR (Non-Af Amer) POC Glucose (mg/dL) 126 H Random Glucose Hemoglobin A1c Calcium Total Bilirubin AST ALT Alkaline Phosphatase Troponin I < 0.01 Total Protein Albumin Globulin Albumin/Globulin Ratio Triglycerides Cholesterol LDL Cholesterol Direct HDL Cholesterol Thyroxine (T4) Total T3 TSH 3rd Generation 0.19 L 01/19/18 01/19/18 01/19/18 06:00 06:00 07:18 WBC 7.8 D RBC 4.33 Hgb 11.5 L Hct 33.0 L MCV 76.2 L MCH 26.6 MCHC 34.8 RDW 16.4 H Plt Count 159 MPV 9.5 Gran % 61.5 Lymph % (Auto) 28.4 [place] % (Auto) 8.9 H Eos % (Auto) 0.9 L Baso % (Auto) 0.3 Gran # 4.80 Lymph # (Auto) 2.2 [place] # (Auto) 0.7 H Eos # (Auto) 0.1 Baso # (Auto) 0.02 Sodium 135 Potassium 3.6 Chloride 94 L Carbon Dioxide 34 H Anion Gap 10 BUN 11 Creatinine 0.7 L Est GFR ( Amer) > 60 Est GFR (Non-Af Amer) > 60 POC Glucose (mg/dL) 96 Random Glucose 107 Hemoglobin A1c Calcium 8.5 Total Bilirubin 0.4 AST 41 ALT 22 Alkaline Phosphatase 96 Troponin I Total Protein 6.8 Albumin 3.4 Globulin 3.4 Albumin/Globulin Ratio 1.0 L Triglycerides 109 Cholesterol 195 LDL Cholesterol Direct 68 HDL Cholesterol 82 H Thyroxine (T4) Total T3 TSH 3rd Generation 01/19/18 01/19/18 01/19/18 07:30 11:07 12:50 WBC RBC Hgb Hct MCV MCH MCHC RDW Plt Count MPV Gran % Lymph % (Auto) [place] % (Auto) Eos % (Auto) Baso % (Auto) Gran # Lymph # (Auto) [place] # (Auto) Eos # (Auto) Baso # (Auto) Sodium Potassium Chloride Carbon Dioxide Anion Gap BUN Creatinine Est GFR ( Amer) Est GFR (Non-Af Amer) POC Glucose (mg/dL) 110 Random Glucose Hemoglobin A1c Calcium Total Bilirubin AST ALT Alkaline Phosphatase Troponin I Total Protein Albumin Globulin Albumin/Globulin Ratio Triglycerides Cholesterol LDL Cholesterol Direct HDL Cholesterol Thyroxine (T4) 5.8 Total T3 1.06 TSH 3rd Generation 1.76 Attending/Attestation - Attestation I have personally seen and examined this patient.: Yes I have fully participated in the care of the patient.: Yes I have reviewed all pertinent clinical information: Yes Notes (Text): 52 year old male, with PMH chronic pancreatitis, aortic dissection s/p repair ( 2015 at [facility]), HTN, anemia, HLD, polysubstance abuse, alcohol abuse, presents for chest pain/epigastric pain, found to be in alcohol withdrawal: Chest pain/epigastric pain: musculoskeletal / GERD / chronic pancreatitis /r/o ACS Alcohol intoxication/withdrawal: CIWA protocol
[2018-01-18] MEDS: Metoprolol Succinate 25 mg XL Tab PO SCH (18:51)
[2018-01-18] MEDS: Folic Acid 1 MG, Thiamine 100 MG, Multivitamin (MVI) 10 ML in Dextrose 5% In Water 1,00... IV SCH (19:02)
[2018-01-18 20:10] VITALS: O2SAT 95
--- NOTE | 2018-01-18 23:44 | CARD ---
APPROVED REPORT EKG Measurement Heart [id number] NV 158P45 [id number] <Conclusion> Normal sinus rhythm Possible Left atrial enlargement Nonspecific T wave abnormality Prolonged QT Abnormal ECG
[2018-01-19] MEDS: Folic Acid 1 MG, Thiamine 100 MG, Multivitamin (MVI) 10 ML in Dextrose 5% In Water 1,00... IV SCH (05:04)
[2018-01-19 06:36] LABS: BASO # 0.02 K/mm3 (0.0-2.0); BASO % 0.3 % (0.0-3.0); EOS # 0.1 (0.0-0.7); EOS % 0.9 % (1.5-5.0); GRAN # 4.8 (1.4-6.5); GRAN % 61.5 % (50.0-68.0); HEMOGLOBIN 11.5 g/dL (14.0-18.0); LYMPH # 2.2 (1.2-3.4); LYMPH % 28.4 % (22.0-35.0); MEAN CELL VOLUME 76.2 fl (80.0-105.0); MEAN CORPUSCULAR HEMOGLOBIN 26.6 pg (25.0-35.0); MEAN CORPUSCULAR HGB CONC 34.8 g/dl (31.0-37.0); MEAN PLATELET VOLUME 9.5 fl (7.0-11.0); MONO # 0.7 (0.1-0.6); MONO % 8.9 % (1.0-6.0); RBC 4.33 10^6/uL (3.5-6.1); RED CELL DISTRIBUTION WIDTH 16.4 % (11.5-14.5); WHITE BLOOD COUNT 7.8 10^3/ul (4.5-11.0)
[2018-01-19 07:02] LABS: ALBUMIN 3.4 g/dL (3.0-4.8); ALT/SGPT 22 U/L (7-56); AST/SGOT 41 U/L (17-59); BLOOD UREA NITROGEN 11 mg/dL (7-21); CALCIUM 8.5 mg/dL (8.4-10.5); GFR AFRICAN-AMERICAN > 60; GFR NON-AFRICAN AMERICAN > 60; HDL CHOLESTEROL 82 mg/dL (29-60)
[2018-01-19 07:06] LABS: LDL CHOLESTEROL 68 mg/dL (0-129)
[2018-01-19] MEDS ORDERED: Multivitamin Therapeutic Tab PO SCH (08:00)
[2018-01-19] MEDS: Metoprolol Succinate 25 mg XL Tab PO SCH (10:52)
[2018-01-19] MEDS ORDERED: Bismuth Subsalicylate 262 mg/15 ml Sus (240 ml) PO ONE (11:31)
[2018-01-19] MEDS ORDERED: Pantoprazole 40 mg EC Tab PO SCH (11:45)
[2018-01-19 11:48] VITALS: BP 133/84; RESP 20; TEMP 98.4
[2018-01-19 13:18] LABS: T4 5.8 ug/dL (5.5-11.0)
[2018-01-19 13:32] LABS: T3 1.06 ng/mL (0.97-1.69)
[2018-01-19 14:35] VITALS: PULSE 91
--- NOTE | 2018-01-19 16:00 | CP.PCM.DIS ---
Provider - Provider Date of Admission: 01/18/18 15:31 Attending physician: Karina Healy MD Primary care physician: Brennen Galvez Jr, MD Time Spent in preparation of Discharge (in minutes): 35 Diagnosis - Discharge Diagnosis (1) Epigastric abdominal tenderness Status: Acute Hospital Course - Lab Results Lab Results: Most Recent Lab Values WBC 7.8 10^3/ul (4.5-11.0) D 01/19/18 06:00 RBC 4.33 10^6/uL (3.5-6.1) 01/19/18 06:00 Hgb 11.5 g/dL (14.0-18.0) L 01/19/18 06:00 Hct 33.0 % (42.0-52.0) L 01/19/18 06:00 MCV 76.2 fl (80.0-105.0) L 01/19/18 06:00 MCH 26.6 pg (25.0-35.0) 01/19/18 06:00 MCHC 34.8 g/dl (31.0-37.0) 01/19/18 06:00 RDW 16.4 % (11.5-14.5) H 01/19/18 06:00 Plt Count 159 10^3/uL (120.0-450.0) 01/19/18 06:00 MPV 9.5 fl (7.0-11.0) 01/19/18 06:00 Gran % 61.5 % (50.0-68.0) 01/19/18 06:00 Lymph % (Auto) 28.4 % (22.0-35.0) 01/19/18 06:00 [place] % (Auto) 8.9 % (1.0-6.0) H 01/19/18 06:00 Eos % (Auto) 0.9 % (1.5-5.0) L 01/19/18 06:00 Baso % (Auto) 0.3 % (0.0-3.0) 01/19/18 06:00 Gran # 4.80 (1.4-6.5) 01/19/18 06:00 Lymph # (Auto) 2.2 (1.2-3.4) 01/19/18 06:00 [place] # (Auto) 0.7 (0.1-0.6) H 01/19/18 06:00 Eos # (Auto) 0.1 (0.0-0.7) 01/19/18 06:00 Baso # (Auto) 0.02 K/mm3 (0.0-2.0) 01/19/18 06:00 PT 12.3 SECONDS (9.4-12.5) 01/18/18 07:57 INR 1.07 (0.93-1.08) 01/18/18 07:57 D-Dimer, Quantitative 3085 ng/mL (0-243) H 01/18/18 07:57 Sodium 135 mmol/L (132-148) 01/19/18 06:00 Potassium 3.6 mmol/L (3.6-5.0) 01/19/18 06:00 Chloride 94 mmol/L (98-107) L 01/19/18 06:00 Carbon Dioxide 34 mmol/L (21-33) H 01/19/18 06:00 Anion Gap 10 (10-20) 01/19/18 06:00 BUN 11 mg/dL (7-21) 01/19/18 06:00 Creatinine 0.7 mg/dl (0.8-1.5) L 01/19/18 06:00 Est GFR ( Amer) > 60 01/19/18 06:00 Est GFR (Non-Af Amer) > 60 01/19/18 06:00 POC Glucose (mg/dL) 110 mg/dL (65-110) 01/19/18 11:07 Random Glucose 107 mg/dL (70-110) 01/19/18 06:00 Hemoglobin A1c 5.2 % (4.2-6.5) 01/18/18 19:30 Calcium 8.5 mg/dL (8.4-10.5) 01/19/18 06:00 Total Bilirubin 0.4 mg/dL (0.2-1.3) 01/19/18 06:00 AST 41 U/L (17-59) 01/19/18 06:00 ALT 22 U/L (7-56) 01/19/18 06:00 Alkaline Phosphatase 96 U/L (38-126) 01/19/18 06:00 Lactate Dehydrogenase 540 U/L (333-699) 01/18/18 07:57 Total Creatine Kinase 68 U/L (35-230) 01/18/18 07:57 Troponin I < 0.01 ng/mL 01/19/18 00:40 NT-Pro-B Natriuret Pep 133 pg/mL (0-450) 01/18/18 07:57 Total Protein 6.8 g/dL (5.8-8.3) 01/19/18 06:00 Albumin 3.4 g/dL (3.0-4.8) 01/19/18 06:00 Globulin 3.4 gm/dL 01/19/18 06:00 Albumin/Globulin Ratio 1.0 (1.1-1.8) L 01/19/18 06:00 Triglycerides 109 mg/dL (35-160) 01/19/18 06:00 Cholesterol 195 mg/dL (130-200) 01/19/18 06:00 LDL Cholesterol Direct 68 mg/dL (0-129) 01/19/18 06:00 HDL Cholesterol 82 mg/dL (29-60) H 01/19/18 06:00 Lipase 46 U/L (23-300) 01/18/18 07:57 Thyroxine (T4) 5.8 ug/dL (5.5-11.0) 01/19/18 12:50 Total T3 1.06 ng/mL (0.97-1.69) 01/19/18 12:50 TSH 3rd Generation 1.76 mIU/mL (0.46-4.68) 01/19/18 07:30 Urine Color Yellow (YELLOW) 01/18/18 07:39 Urine Appearance Clear (CLEAR) 01/18/18 07:39 Urine pH 6.0 (4.7-8.0) 01/18/18 07:39 Ur Specific [place] 1.025 (1.005-1.035) 01/18/18 07:39 Urine Protein 30 mg/dL (<30 mg/dL) H 01/18/18 07:39 Urine Glucose (UA) Negative mg/dL (NEGATIVE) 01/18/18 07:39 Urine Ketones 15 mg/dL (NEGATIVE) H 01/18/18 07:39 Urine Blood Negative (NEGATIVE) 01/18/18 07:39 Urine Nitrate Negative (NEGATIVE) 01/18/18 07:39 Urine Bilirubin Negative (NEGATIVE) 01/18/18 07:39 Urine Urobilinogen 0.2 E.U./dL (<1 E.U./dL) 01/18/18 07:39 Ur Leukocyte Esterase Negative Singh/uL (NEGATIVE) 01/18/18 07:39 Urine RBC 0 - 2 /hpf (0-2) 01/18/18 07:39 Urine WBC 0 - 2 /hpf (0-6) 01/18/18 07:39 Ur Epithelial Cells None /hpf (0-5) 01/18/18 07:39 Amorphous Sediment Few 01/18/18 07:39 Urine Bacteria Mod (NEG) 01/18/18 07:39 Fine Granular Casts 0 - 2 /hpf (0-2) 01/18/18 07:39 Coarse Granular Casts Trace /hpf (0-2) H 01/18/18 07:39 Urine Opiates Screen Negative (NEGATIVE) 01/18/18 07:39 Urine Methadone Screen Positive (NEGATIVE) H 01/18/18 07:39 Ur Barbiturates Screen Negative (NEGATIVE) 01/18/18 07:39 Ur Phencyclidine Scrn Negative (NEGATIVE) 01/18/18 07:39 Ur Amphetamines Screen Negative (NEGATIVE) 01/18/18 07:39 U Benzodiazepines Scrn Negative (NEGATIVE) 01/18/18 07:39 U Oth Cocaine Metabols Negative (NEGATIVE) 01/18/18 07:39 U Cannabinoids Screen Negative (NEGATIVE) 01/18/18 07:39 Alcohol, Quantitative 26 mg/dL (0-10) H 01/18/18 07:57 - Hospital Course Hospital Course: 52-year-old -[place]ian male with a past medical history of intermittent pancreatitis, aortic dissection status post repair in 2014, hypertension, anemia , polysubstance abuse who presented for epigastric pain, that he described as pounding and constant, non-radiating and reproducible on deep palpation. He denied vomiting, but she was nauseous. CTA of chest was done and showed chronic aortic dissection unchanged in appearance (begins in ascending aorta). EKG showed NSR @ 75 with nonspecific T-wave. ACS was ruled out by negative troponin x3. TSH was within normal and so was the lipid panel. Vital signs were stable and patient tolerated diet well on protonix and PeptoBismol. Patient is medically cleared for discharge. He will follow-up with his mountain guide and PMD , and is on a trial of protonix and PeptoBismol for his symptoms. Discharge Exam - Head Exam Head Exam: ATRAUMATIC, NORMOCEPHALIC - Eye Exam Eye Exam: Normal appearance Pupil Exam: NORMAL ACCOMODATION - ENT Exam ENT Exam: Mucous Membranes Moist, Normal Exam - Neck Exam Neck exam: Normal Inspection - Respiratory Exam Respiratory Exam: Clear to PA & Lateral, NORMAL BREATHING PATTERN. absent: Rhonchi, Wheezes, Respiratory Distress - Cardiovascular Exam Cardiovascular Exam: RRR, +S1, +S2 Additional comments: reproducible chest pain (generalized) - GI/Abdominal Exam GI & Abdominal Exam: Normal Bowel Sounds, Soft. absent: Distended, Tenderness - Extremities Exam Extremities exam: normal inspection - Back Exam Back exam: NORMAL INSPECTION - Neurological Exam Neurological exam: Alert, CN II-XII Intact, Oriented x3 - Psychiatric Exam Psychiatric exam: Normal Affect Discharge Plan - Discharge Medications Prescriptions: Bismuth Subsalicylate [Pepto Bismol] 262 mg PO QID 14 Days ctb Pantoprazole [Protonix] 40 mg PO DAILY #30 ect - Follow Up Plan Condition: FAIR Disposition: HOME/ ROUTINE Instructions: Drug Abuse and Drug Addiction (DC), Gastritis (DC), Alcohol Abuse and Alcoholism (DC), Chest Pain (DC), Acute Abdominal Pain (DC) Additional Instructions: please take the medications as prescribed avoid spicy/hot foods please continue your medications please follow up with your PMD within 2 weeks please follow up with your [employer] within 2 weeks if you continue to experience shortness of breath, worsening chest pain or nausea/vomiting, please return to ER for further evaluation Referrals: Brennen Galvez Jr., MD [Primary Care Provider] - Jaylin Flores MD [Non-Staff] -
--- NOTE | 2018-01-19 21:29 | CARD ---
APPROVED REPORT EKG Measurement Heart [id number] <Conclusion> Normal sinus rhythm Nonspecific T wave abnormality Prolonged QT Abnormal ECG
== END 2018-01-19 18:15 | disposition home or self-care (01) ==
LOC: ED 07:23 → INTOOBSV 15:31 → ERH 15:31 → 2RSO 17:26
PROVIDERS: ADMIT Internal Medicine; ATTEND Internal Medicine
DX: R10.816 Epigastric abdominal tenderness (principal); R07.2 Precordial pain; K86.1 Other chronic pancreatitis; F10.239 Alcohol dependence with withdrawal, unspecified; E78.5 Hyperlipidemia, unspecified; F17.210 Nicotine dependence, cigarettes, uncomplicated; I10 Essential (primary) hypertension; D64.9 Anemia, unspecified; Z87.440 Personal history of urinary (tract) infections; E16.2 Hypoglycemia, unspecified; Y90.1 Blood alcohol level of 20-39 mg/100 ml
CPT/HCPCS: 36415; 71045; 71275; 80053; 80061; 80320; 80324; 80345; 80346; 80349; 80353; 80358; 80361; 81001; 82550; 82948; 83036; 83615; 83690; 83880; 83992; 84436; 84443; 84480; 84484; 85025; 85378; 85610; 93005; 96374; 96375; 99285; G0378; J2060; J2765; J3411; J7030; J7070; Q9967

== ENCOUNTER 2018-02-13 01:42 | Inpatient (IN) | payer OTHER ==
[2018-02-13 01:42] VITALS: BMI 20.3
--- NOTE | 2018-02-13 02:00 | ED PDOC ---
Arrival/HPI - General Chief Complaint: Chest Pain Time Seen by Provider: 02/13/18 01:50 - History of Present Illness Narrative History of Present Illness (Text): 02/13/18 01:59 52 year old male, whose past medical history includes hypertension, hyperlipidemia, chronic pancreatitis, aortic dissection s/p repair (2015 at [facility]), anemia, polysubstance abuse (has been clean since 1 year through [facility]), and alcohol abuse, presents to the emergency department complaining of chest pain that began 24 hours ago. Patient reports shortness of breath and nausea, but denies any fever, chills, cough, vomiting, diarrhea, urinary symptoms, back pain, neck pain, headache, dizziness, or any other complaints. PMD: Dr. Rodrigues Past Medical History - Provider Review Nursing Documentation Reviewed: Yes - Infectious Disease Hx of Infectious Diseases: None - Tetanus Immunization Tetanus Immunization: Unknown - Cardiac Hx Hypertension: Yes Other/Comment: Aortic aneurysm - Pulmonary Hx Respiratory Disorders: Yes Hx Bronchitis: Yes - Neurological Hx Neurological Disorder: Yes Hx Seizures: Yes - HEENT Hx HEENT Disorder: No - Renal Hx Renal Disorder: No - Endocrine/Metabolic Hx Endocrine Disorders: Yes Other/Comment: hypoglycemia - Hematological/Oncological Hx Blood Disorders: Yes Hx Anemia: Yes (iron deficiency) - Integumentary Other/Comment: dry skin both feet/ankles - Musculoskeletal/Rheumatological Hx Musculoskeletal Disorders: Yes Hx Falls: Yes - Gastrointestinal Hx Gastrointestinal Disorders: Yes Hx Gastroesophageal Reflux: Yes Hx Pancreatitis: Yes Other/Comment: colonoscopy 07/21/17: redundant colon and internal hemorrhoids - Genitourinary/Gynecological Hx Genitourinary Disorders: Yes Hx Urinary Tract Infection: Yes - Psychiatric Hx Psychophysiologic Disorder: Yes (H/O HEROINE ABUSE,SNORTED) Hx Substance Use: Yes (quit snorting heroine "3 months ago" pt stated) Other/Comment: quit snorting heroine "about 4 months ago" pt stated. 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 - Anesthesia Hx Anesthesia: Yes Hx Anesthesia Reactions: No Hx Malignant Hyperthermia: No - Suicidal Assessment Feels Threatened In Home Enviroment: No Family/Social History - Physician Review Nursing Documentation Reviewed: Yes Family/Social History: No Known Family HX Smoking Status: Heavy Smoker > 10 Cigarettes Daily Hx Alcohol Use: Yes Hx Substance Use: Yes (quit snorting heroine "3 months ago" pt stated) Substance used: heroin Hx Substance Use Treatment: Yes Allergies/Home Meds Allergies/Adverse Reactions: Allergies No Known Allergies Allergy (Verified 02/13/18 01:45) Review of Systems - Physician Review All systems were reviewed & negative as marked: Yes - Review of Systems Constitutional: absent: Fevers Gastrointestinal: absent: Vomiting Physical Exam - Physical Exam Narrative Physical Exam (Text): 02/13/18 02:14 Constitutional: No acute distress. Head: Normocephalic. Atraumatic. Eyes: PERRL. ENT: Moist mucous membranes. Neck: Supple. Cardiovascular: Tachycardic Chest: No tenderness. Respiratory: Clear to auscultation bilaterally. GI: Soft. Nontender. Nondistended. Back: No CVA tenderness. Musculoskeletal: No tenderness or swelling of extremities. Skin: No rash. Neurologic: Alert, no focal deficit. Vital Signs Reviewed: Yes Vital Signs Temp Pulse Resp BP Pulse Ox 02/13/18 05:26 82 16 95 02/13/18 02:30 100.2 F H 114 H 97 H 116/82 20 L 02/13/18 01:48 100.2 F H 127 H 22 116/82 95 Medical Decision Making ED Course and Treatment: 02/13/18 01:59 Plan: -- CT Angiography Dissection Protocol -- EKG -- Labs -- Reassess and disposition Prior Visits: Notes and results from previous visits were reviewed. Patient was last seen in the emergency department on 01/19/18 presents complaining of midsternal chest pain since this morning. Patient was admitted. Progress Notes: EKG shows Sinus Rhythm at [address] elevation. Interpreted by me. EXAM: CT Angiography Chest With Intravenous Contrast Dictated and Authenticated by: Alina Lucia MD 02/13/2018 5:40 AM IMPRESSION: When compared with 01/18/18, there is redemonstration of a chronic aortic dissection originating just beyond the level of the ascending aortic stent graft and extending into the abdomen. Whereas previously there was different opacification of true and false lumens, currently the 2 lumens are equally opacified, compatible with a large fenestration seen at the origin of the dissection. No change when compared with the prior exam. EXAM: CT Abdomen and Pelvis Without And With Intravenous Contrast Dictated and Authenticated by: Alina Lucia MD 02/13/2018 5:49 AM IMPRESSION: Aortic dissection terminating in proximal left common iliac artery with relatively equal opacification of true and false lumens. No prior images have been submitted for comparison. 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 The distal vessel is patent. Large cystic structure inferior to the stomach and anterior to the pancreas, likely a large pancreatic pseudocyst, and unchanged compared with 01/18/18. 02/13/18 05:53 Case discussed with Change Management Lead and Dr. Olsen who is aware and agrees with the plan. Accepts patient into hospitalist service. Patient takes ASA daily. Troponin 0.02 after 24 hours of chest pain, will trend. - Lab Interpretations Lab Results: 02/13/18 02:20 02/13/18 02:51 Lab Results 02/13/18 02:51: Sodium 141, Potassium 4.4, Chloride 101, Carbon Dioxide 19 L, Anion Gap 25 H, BUN 14, Creatinine 0.8, Est GFR ( Amer) > 60, Est GFR ( Non-Af Amer) > 60, Random Glucose 188 H, Calcium 8.7, Total Bilirubin 0.5, AST 107 H D, ALT 57 H, Alkaline Phosphatase 103, Total Creatine Kinase 62, Troponin I 0.02 D, NT-Pro-B Natriuret Pep 353, Total Protein 6.9, Albumin 3.6, Globulin 3.2, Albumin/Globulin Ratio 1.1 02/13/18 02:51: PT 11.1, INR 0.97, APTT 24.4 L 02/13/18 02:20: WBC 5.8 D, RBC 4.26, Hgb 11.3 L, Hct 31.6 L, MCV 74.2 L, MCH 26.5, MCHC 35.8, RDW 18.1 H, Plt Count 112 L, MPV 10.5, Gran % 78.3 H, Lymph % ( Auto) 16.1 L, [place] % (Auto) 5.4, Eos % (Auto) 0.0 L, Baso % (Auto) 0.2, Gran # 4.51, Lymph # (Auto) 0.9 L, [place] # (Auto) 0.3, Eos # (Auto) 0.0, Baso # (Auto) 0.01 I have reviewed the lab results: Yes - RAD Interpretation Radiology Orders: 02/13/18 01:59 ANGIOGRAPHY DISECTION PROTOCOL [CT] Stat - EKG Interpretation Interpreted by ED Physician: Yes Type: 12 lead EKG - Medication Orders Current Medication Orders: Sodium Chloride (Sodium Chloride 0.9%) 1,000 mls @ 100 mls/hr IV .Q10H STA Stop: 02/13/18 12:31 Last Admin: 02/13/18 03:10 Dose: 100 mls/hr eMAR Start Stop Document 02/13/18 03:10 SS (Rec: 02/13/18 03:10 SS [id number]) Intravenous Solution Start Date 02/13/18 Start Time 03:10 Discontinued Medications Ondansetron HCl (Zofran Inj) 8 mg IVP STAT STA Stop: 02/13/18 05:42 Last Admin: 02/13/18 05:57 Dose: 8 mg IVP Administration Document 02/13/18 05:57 SS (Rec: 02/13/18 05:57 SS [id number]) Charges for Administration # of IVP Administrations 1 - Scribe Statement The provider has reviewed the documentation as recorded by the Adrien Amato Provider Scribe Attestation: All medical record entries made by the Scribe were at my direction and personally dictated by me. I have reviewed the chart and agree that the record accurately reflects my personal performance of the history, physical exam, medical decision making, and the department course for this patient. I have also personally directed, reviewed, and agree with the discharge instructions and disposition. Disposition/Present on Arrival - Present on Arrival Any Indicators Present on Arrival: No History of DVT/PE: No History of Uncontrolled Diabetes: No Urinary Catheter: No History of Decub. Ulcer: No History Surgical Site Infection Following: None - Disposition Have Diagnosis and Disposition been Completed?: Yes Diagnosis: Chest pain, Superior mesenteric artery thrombosis Disposition: HOSPITALIZED Disposition Time: 05:59 Patient Plan: Admission, Telemetry Condition: GUARDED Discharge Instructions (ExitCare): Chest Pain (ED) Referrals: Brennen Galvez Jr., MD [Primary Care Provider] - Follow up with primary Forms: [employer] (Hungarian)
[2018-02-13] MEDS ORDERED: Sodium Chloride 0.9% 1,000 ML IV STA (02:32)
[2018-02-13 02:46] LABS: BASO # 0.01 K/mm3 (0.0-2.0); BASO % 0.2 % (0.0-3.0); GRAN # 4.51 (1.4-6.5); GRAN % 78.3 % (50.0-68.0); HEMOGLOBIN 11.3 g/dL (14.0-18.0); LYMPH # 0.9 (1.2-3.4); LYMPH % 16.1 % (22.0-35.0); MEAN CELL VOLUME 74.2 fl (80.0-105.0); MEAN CORPUSCULAR HEMOGLOBIN 26.5 pg (25.0-35.0); MEAN CORPUSCULAR HGB CONC 35.8 g/dl (31.0-37.0); MEAN PLATELET VOLUME 10.5 fl (7.0-11.0); MONO # 0.3 (0.1-0.6); MONO % 5.4 % (1.0-6.0); RBC 4.26 10^6/uL (3.5-6.1); RED CELL DISTRIBUTION WIDTH 18.1 % (11.5-14.5); WHITE BLOOD COUNT 5.8 10^3/ul (4.5-11.0)
[2018-02-13 03:15] LABS: INR 0.97 (0.93-1.08); PARTIAL THROMBOPLASTIN TIME 24.4 Seconds (25.1-36.5); PROTHROMBIN TIME 11.1 SECONDS (9.4-12.5)
[2018-02-13 03:18] LABS: ALB/GLOB RATIO 1.1 (1.1-1.8); ALBUMIN 3.6 g/dL (3.0-4.8); ALT/SGPT 57 U/L (7-56); AST/SGOT 107 U/L (17-59); BLOOD UREA NITROGEN 14 mg/dL (7-21); CALCIUM 8.7 mg/dL (8.4-10.5); GFR AFRICAN-AMERICAN > 60; GFR NON-AFRICAN AMERICAN > 60
[2018-02-13 03:24] LABS: B-TYPE NATRIURETIC PEPTIDE 353 pg/mL (0-450); TROPONIN I 0.02 ng/mL
--- NOTE | 2018-02-13 06:33 | CP.PCM.HP ---
<Juan Aguiar - Last Filed: 02/13/18 07:22> History of Present Illness - History of Present Illness History of Present Illness: PGY-1 Admission History and Physical for Dr. Olsen Patient is a 52 year old male with PMH of HTN, HLD, chronic pancreatitis, aortic dissection s/p repair (2015 at [facility]), microcytic anemia, polysubstance abuse (has been clean since 1 year through [facility] methadone service), and alcoholism presented to ED with chest pain and shortness of breath. He states that the chest pain started yesterday, is 10/10 in severity, and describes it as a sharp, stabbing type pain. The pain is located in the center of his chest and does not radiate elsewhere. He states that he's experiencing a similar type of pain to his aortic dissection in 2015. He also complains of right arm swelling that's been going on since he had his CT earlier in the morning. He admits to worsening SOB and nausea that have accompanied his chest pain but denies coug, wheezing, vomiting, abdominal pain, muscle pain or weakness. PMD: Ahmed PMH: HTN, HLD, chronic pancreatitis, aortic dissection, microcytic anemia PSH: aortic dissection repair Allergies: NKDA Fam Hx: he denies any relevant family history Soc Hx: reports smoking 10 cigarettes per day for at least 30 years. Reports he has a history of alcoholism and started drinking again as recently as a week ago. He denies using any illicit drugs and has been clean for a year. He currently goes to [facility] methadone clinic in for treatment Present on Admission - Present on Admission Any Indicators Present on Admission: No History of DVT/PE: No History of Uncontrolled Diabetes: No Urinary Catheter: No Decubitus Ulcer Present: No Review of Systems - Review of Systems Review of Systems: A 12 point ROS was reviewed with patient and negative except as stated in HPI Past Patient History - Infectious Disease Hx of Infectious Diseases: None - Tetanus Immunizations Tetanus Immunization: Unknown - Past Medical History & Family History Past Medical History?: Yes - Past Social History Smoking Status: Heavy Smoker > 10 Cigarettes Daily - CARDIAC Hx Hypertension: Yes Other/Comment: Aortic aneurysm - PULMONARY Hx Respiratory Disorders: Yes Hx Bronchitis: Yes - NEUROLOGICAL Hx Neurological Disorder: Yes Hx Seizures: Yes - HEENT Hx HEENT Problems: No - RENAL Hx Chronic Kidney Disease: No - ENDOCRINE/METABOLIC Hx Endocrine Disorders: Yes Other/Comment: hypoglycemia - HEMATOLOGICAL/ONCOLOGICAL Hx Blood Disorders: Yes Hx Anemia: Yes (iron deficiency) - INTEGUMENTARY Other/Comment: dry skin both feet/ankles - MUSCULOSKELETAL/RHEUMATOLOGICAL Hx Musculoskeletal Disorders: Yes Hx Falls: Yes - GASTROINTESTINAL Hx Gastrointestinal Disorders: Yes Hx Gastroesophageal Reflux: Yes Hx Pancreatitis: Yes Other/Comment: colonoscopy 07/21/17: redundant colon and internal hemorrhoids - GENITOURINARY/GYNECOLOGICAL Hx Genitourinary Disorders: Yes Hx Urinary Tract Infection: Yes - PSYCHIATRIC Hx Psychophysiologic Disorder: Yes (H/O HEROINE ABUSE,SNORTED) Hx Substance Use: Yes (quit snorting heroine "3 months ago" pt stated) Other/Comment: quit snorting heroine "about 4 months ago" pt stated. Pt on [employer] program , drinks 1/2 pt liquor occasionally, smokes 10 cigs a day - SURGICAL HISTORY Hx Open Heart Surgery: Yes (AAA REPAIR) Other/Comment: aneurysm in his chest December 2014, pancreatic pseudocyst abcess drainage 11/14/16 - ANESTHESIA Hx Anesthesia: Yes Hx Anesthesia Reactions: No Hx Malignant Hyperthermia: No Meds Allergies/Adverse Reactions: Allergies Allergy/AdvReac Type Severity Reaction Status Date / Time No Known Allergies Allergy Verified 02/13/18 01:45 Physical Exam - Constitutional Appears: No Acute Distress, Unkempt - Head Exam Head Exam: ATRAUMATIC, NORMAL INSPECTION, NORMOCEPHALIC - Eye Exam Eye Exam: Normal appearance, PERRL - ENT Exam ENT Exam: Mucous Membranes Moist, Normal Exam - Neck Exam Neck exam: Positive for: Normal Inspection. Negative for: Tenderness, Thyromegaly - Respiratory Exam Respiratory Exam: Chest Wall Tenderness, Clear to Auscultation Bilateral. absent: Accessory Muscle Use, Decreased Breath Sounds, Rales, Rhonchi, Wheezes, Respiratory Distress, Stridor - Cardiovascular Exam Cardiovascular Exam: Tachycardia, REGULAR RHYTHM, +S1, +S2. absent: Diastolic murmur, Gallop, JVD, Rubs, Systolic Murmur - GI/Abdominal Exam GI & Abdominal Exam: Normal Bowel Sounds, Soft. absent: Guarding, Rebound - Extremities Exam Additional comments: Notable L arm edema that patient reports has worsened over the past few hours since his CT. - Neurological Exam Neurological exam: Alert, Oriented x3 - Skin Skin Exam: Dry, Intact, Normal Color, Warm Results - Vital Signs Recent Vital Signs: Last Vital Signs Temp 100.2 F H 02/13/18 02:30 Pulse 82 02/13/18 05:26 Resp 16 02/13/18 05:26 BP 116/82 02/13/18 02:30 Pulse Ox 95 02/13/18 05:26 - Labs Result Diagrams: 02/13/18 02:20 02/13/18 02:51 Assessment & Plan - Assessment and Plan (Free Text) Assessment: Patient is a 52 year old male with PMH of PMH of HTN, HLD, chronic pancreatitis , aortic dissection s/p repair (2015 at [facility]), microcytic anemia, polysubstance abuse (has been clean since 1 year through [facility]), and alcoholism found to have chronic aortic dissection consistent with prior CTs along with SMA thrombosis on repeat CT. 1. Chest pain -May be secondary to chronic aortic dissection vs musculoskeletal vs acute coronary syndrome -Initial troponin negative, will continue to trend Q6h x 2 -Repeat ECG at 1100 -Cardiology consulted for chest pain, tachycardia 2. Partial SMA thrombosis -Vascular surgery consulted -VBG shock panel follow up -Will continue to monitor 3. Hx of alcohol abuse -Admits to stopping a week ago -CIWA protocol -Ativan q8h PRN for signs of withdrawal -Is only folic acid at home -Will give banana bag 4. Hx of opioid abuse -Currently on methadone -Need to call [facility] in [place] to confirm dose 5. Microcytic anemia -Has history of chronic microcytic anemia -Unclear if w/u has been done in the past -Iron, TIBC, Ferritin, Transferrin ordered 6. L arm edema -Most likely secondary to extravasation of IV contrast following CT -F/u b/l doppler US of UE 7. Elevated LFTs -Secondary to partial SMA thrombosis vs EtOH abuse -Hepatitis panel ordered GI and DVT/PE PPX: Lovenox 40 sc, Pepcid 40 Case and plan were discussed in detail with Dr. Olsen attending. Juan Aguiar DO IM Resident PGY-1 <Africa Olsen - Last Filed: 02/13/18 19:18> Results - Vital Signs Recent Vital Signs: Last Vital Signs Temp 98.9 F 02/13/18 17:15 Pulse 73 02/13/18 17:15 Resp 19 02/13/18 17:15 BP 140/88 02/13/18 17:15 Pulse Ox 97 02/13/18 08:01 - Labs Result Diagrams: 02/13/18 02:20 02/13/18 02:51 Labs: Laboratory Results - last 24 hr 02/13/18 02/13/18 02/13/18 07:30 08:20 08:20 pO2 70 H VBG pH 7.51 H VBG pCO2 34.0 L VBG HCO3 27.1 VBG Total CO2 28.1 H VBG O2 Sat (Calc) 95.8 H VBG Base Excess 4.3 H VBG Potassium 4.0 Sodium 138.0 Chloride 103.0 Glucose 87 Lactate 1.1 FiO2 21.0 Iron TIBC % Saturation Transferrin Ferritin 692.0 Troponin I 0.03 D Amylase Lipase Venous Blood Potassium 4.0 Urine Color Urine Appearance Urine pH Ur Specific Baldwin Urine Protein Urine Glucose (UA) Urine Ketones Urine Blood Urine Nitrate Urine Bilirubin Urine Urobilinogen Ur Leukocyte Esterase Urine RBC Urine WBC Ur Epithelial Cells Urine Opiates Screen Urine Methadone Screen Ur Barbiturates Screen Ur Phencyclidine Scrn Ur Amphetamines Screen U Benzodiazepines Scrn U Oth Cocaine Metabols U Cannabinoids Screen Alcohol, Quantitative Hepatitis A IgM Ab Negative Hep Bs Antigen Negative Hep B Core IgM Ab Negative Hepatitis C Antibody Negative 02/13/18 02/13/18 02/13/18 08:20 08:20 08:20 pO2 VBG pH VBG pCO2 VBG HCO3 VBG Total CO2 VBG O2 Sat (Calc) VBG Base Excess VBG Potassium Sodium Chloride Glucose Lactate FiO2 Iron 49 TIBC 239 L % Saturation 21 Transferrin 183.12 L Ferritin Troponin I Amylase Lipase Venous Blood Potassium Urine Color Urine Appearance Urine pH Ur Specific Baldwin Urine Protein Urine Glucose (UA) Urine Ketones Urine Blood Urine Nitrate Urine Bilirubin Urine Urobilinogen Ur Leukocyte Esterase Urine RBC Urine WBC Ur Epithelial Cells Urine Opiates Screen Urine Methadone Screen Ur Barbiturates Screen Ur Phencyclidine Scrn Ur Amphetamines Screen U Benzodiazepines Scrn U Oth Cocaine Metabols U Cannabinoids Screen Alcohol, Quantitative < 10 Hepatitis A IgM Ab Hep Bs Antigen Hep B Core IgM Ab Hepatitis C Antibody 02/13/18 02/13/18 02/13/18 15:00 15:02 15:02 pO2 VBG pH VBG pCO2 VBG HCO3 VBG Total CO2 VBG O2 Sat (Calc) VBG Base Excess VBG Potassium Sodium Chloride Glucose Lactate FiO2 Iron TIBC % Saturation Transferrin Ferritin Troponin I < 0.01 D Amylase Lipase Venous Blood Potassium Urine Color Dark yellow Urine Appearance Clear Urine pH 6.5 Ur Specific Baldwin 1.010 Urine Protein 30 H Urine Glucose (UA) Negative Urine Ketones 40 H Urine Blood Negative Urine Nitrate Negative Urine Bilirubin Moderate H Urine Urobilinogen 1.0 H Ur Leukocyte Esterase Negative Urine RBC Negative Urine WBC Negative Ur Epithelial Cells None Urine Opiates Screen Negative Urine Methadone Screen Positive H Ur Barbiturates Screen Negative Ur Phencyclidine Scrn Negative Ur Amphetamines Screen Negative U Benzodiazepines Scrn Positive H U Oth Cocaine Metabols Negative U Cannabinoids Screen Negative Alcohol, Quantitative Hepatitis A IgM Ab Hep Bs Antigen Hep B Core IgM Ab Hepatitis C Antibody 02/13/18 16:45 pO2 VBG pH VBG pCO2 VBG HCO3 VBG Total CO2 VBG O2 Sat (Calc) VBG Base Excess VBG Potassium Sodium Chloride Glucose Lactate FiO2 Iron TIBC % Saturation Transferrin Ferritin Troponin I Amylase 131 H Lipase 267 Venous Blood Potassium Urine Color Urine Appearance Urine pH Ur Specific Baldwin Urine Protein Urine Glucose (UA) Urine Ketones Urine Blood Urine Nitrate Urine Bilirubin Urine Urobilinogen Ur Leukocyte Esterase Urine RBC Urine WBC Ur Epithelial Cells Urine Opiates Screen Urine Methadone Screen Ur Barbiturates Screen Ur Phencyclidine Scrn Ur Amphetamines Screen U Benzodiazepines Scrn U Oth Cocaine Metabols U Cannabinoids Screen Alcohol, Quantitative Hepatitis A IgM Ab Hep Bs Antigen Hep B Core IgM Ab Hepatitis C Antibody Attending/Attestation - Attestation I have personally seen and examined this patient.: Yes I have fully participated in the care of the patient.: Yes I have reviewed all pertinent clinical information: Yes Notes (Text): 02/13/18 19:18 Patient was seen when he was in bed # 1 in the ER . Agree with history, physical examination, assessment and plan.
[2018-02-13] MEDS ORDERED: Multivitamin (MVI) 10 ML, Thiamine 100 MG, Folic Acid 1 MG in Sodium Chloride 0.9% 1,00... IV ONE (07:18)
[2018-02-13 08:36] LABS: VENOUS BLOOD GAS BASE EXCESS 4.3 mmol/L (0.0-2.0); VENOUS BLOOD GAS PO2 70 mm/Hg (30-55); VENOUS BLOOD PH 7.51 (7.32-7.43)
[2018-02-13 08:47] LABS: IRON 49 ug/dL (45-180)
[2018-02-13 08:56] LABS: % IRON SATURATION 21 % (20-55); TOTAL IRON BINDING CAPACITY 239 ug/dL (261-462)
[2018-02-13 09:01] LABS: TROPONIN I 0.03 ng/mL
[2018-02-13] MEDS: Enoxaparin 60 mg Syringe SC SCH (09:51)
[2018-02-13] MEDS ORDERED: Enoxaparin 40 mg Syringe SC SCH (10:00)
[2018-02-13] MEDS: Multivitamin Therapeutic Tab PO SCH (10:01)
[2018-02-13] MEDS: Metoprolol Succinate 25 mg XL Tab PO SCH (10:01)
--- NOTE | 2018-02-13 10:07 | CT ---
PROCEDURE: CT Angiography Chest, Abdomen and Pelvis with and without intravenous contrast HISTORY: chest pain COMPARISON: CT 01/18/2018 and 05/18/2017 TECHNIQUE: Contiguous axial images of the chest, abdomen and pelvis were obtained in the phase of aortic enhancement. A noncontrast enhanced CT of the chest was also obtained to evaluate for possible intramural thrombus. Coronal and sagittal reformats were generated. IV dose administered: 150 cc of Omni 350 Radiation dose: Total exam DLP = 735 mGy-cm. This CT exam was performed using one or more of the following dose reduction techniques: Automated exposure control, adjustment of the mA and/or kV according to patient size, and/or use of iterative reconstruction technique. 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 This is unchanged in appearance The celiac axis, superior mesenteric artery, inferior mesenteric artery and the renal arteries are widely patent. The pelvic arteries are unremarkable. LUNGS: Clear. No nodule, mass or consolidation. MEDIASTINUM: Unremarkable. Normal caliber aorta and pulmonary arterial trunk. No aortic dissection. Normal size heart. LYMPH NODES: Unremarkable. PLEURA: Unremarkable. No pneumothorax. No pleural fluid. BONES: Unremarkable. OTHER FINDINGS: None. CT ANGIOGRAPHY OF THE ABDOMEN AND PELVIS WITH CONTRAST: LIVER: Unremarkable. No gross lesion or ductal dilatation. Fatty infiltration GALLBLADDER AND BILE DUCTS: Unremarkable. PANCREAS: There is a 7 x 9 cm cyst along the inferior margin the stomach anterior to the pancreas consistent with a pancreatic pseudocyst. SPLEEN: Unremarkable. ADRENALS: Unremarkable. No mass. KIDNEYS AND URETERS: Unremarkable. No hydronephrosis. No solid mass. VASCULATURE: There is a partially thrombosed aneurysm of the SMA. This is unchanged. The aortic dissection extends into the proximal left common iliac. STOMACH AND BOWEL: Unremarkable. No obstruction. No gross mural thickening. APPENDIX: Normal appendix. PERITONEUM: Unremarkable. No free fluid. No free air. LYMPH NODES: Unremarkable. No enlarged lymph nodes. BLADDER: Unremarkable. REPRODUCTIVE: Unremarkable. BONES: No acute fracture. OTHER FINDINGS: The report concurs with the preliminary [facility] report IMPRESSION: Large pancreatic pseudocyst unchanged Aortic dissection unchanged. 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 This is unchanged in appearance
--- NOTE | 2018-02-13 10:18 | US ---
HISTORY: Arm pain and swelling. Evaluate for deep venous thrombosis. PHYSICIAN(S): Gwyn Street MD. FINDINGS: The visualized internal jugular veins are sonographically normal and compressible. The right IJ is small in caliber. The left IJ is normal. No evidence of obstruction or thrombus this is seen. The visualized segments of the subclavian veins are patent with normal waveforms. No sonographic evidence of obstruction or thrombosis is seen. The visualized deep venous systems of both upper extremities proximally are sonographically normal and compressible. IMPRESSION: 1. No sonographic evidence for deep venous thrombosis in the visualized segments of both upper strategies.
--- NOTE | 2018-02-13 10:24 | RAD ---
Date of service: 02/13/2018 HISTORY: r/o infiltrations COMPARISON: 01/18/2018 FINDINGS: LUNGS: No active pulmonary disease. PLEURA: No significant pleural effusion identified, no pneumothorax apparent. CARDIOVASCULAR: Aortic tortuosity in dilatation unchanged. The heart is normal in size OSSEOUS STRUCTURES: Sternal wires VISUALIZED UPPER ABDOMEN: Normal. OTHER FINDINGS: None. IMPRESSION: No active disease.
--- NOTE | 2018-02-13 11:27 | CP.PCM.CON ---
History of Present Illness - History of Present Illness History of Present Illness: Vascular Surgery Consult Note for: Dr. Garrido Pt is a 52 yo M with pmhx of HTN, chronic pancreatitis, abdominal aortic aneurysm repair done in 2014 at [facility] and polysubstance abuse who presents with chest pain and SOB. His chest pain started yesterday and was described as a sharp stabbing pain that was a 10/10. He is currently having continued chest pain rating it 8/10 and stating that it is present through out his chest without radiation and denies worsening chest pain with exertion. He admits to fevers, SOB, nausea. Upon admission he admitted to abdominal pain but states that it has resolved. Pt is asking for food to eat. He denies chills, wheezing, coughing, productive sputum, worsening chest pain on exertion, vomiting, constipation, diarrhea, blood in the stool or changes in bowel habits. Pt can walk 3 blocks without getting tired. He sleeps with 4 pillows. PMHx: HTN. HLD, Chronic pancreatitis, Aortic dissection, microcytic anemia, EtOH abuse PSHx: AAA repair 2014, pancreatic pseudocyst drainage 11/21 Social Hx: 1/2 ppd smoker for 30 years, history of alcoholism, denies illicit drug use for the past year (methadone clinic for rehab) Medications: Folic acid, atorvastatin, metoprolol, lisinopril, ASA Allergies: NKDA Review of Systems - Constitutional Constitutional: Fever, Weight Loss (10 pounds the last month unintentional). absent: Chills, Weakness - EENT Eyes: absent: Blurred Vision, Change in Vision - Cardiovascular Cardiovascular: Chest Pain. absent: Chest Pain with Activity, Diaphoresis, Pain Radiating to Arm/Neck/Jaw, Lightheadedness, Paroxysmal Nocturnal Dyspnea - Respiratory Respiratory: Dyspnea on Exertion. absent: Cough, Hemoptysis, Wheezing - Gastrointestinal Gastrointestinal: Abdominal Pain (Post prandial, occurs with any type of food), Nausea. absent: Change in Bowel Habits, Constipation, Diarrhea, Hematochezia, Melena, Vomiting Past Patient History - Infectious Disease Hx of Infectious Diseases: None - Tetanus Immunizations Tetanus Immunization: Unknown - Past Medical History & Family History Past Medical History?: Yes - Past Social History Smoking Status: Heavy Smoker > 10 Cigarettes Daily - CARDIAC Hx Hypertension: Yes Other/Comment: Aortic aneurysm - PULMONARY Hx Respiratory Disorders: Yes Hx Bronchitis: Yes - NEUROLOGICAL Hx Neurological Disorder: Yes Hx Seizures: Yes - HEENT Hx HEENT Problems: No - RENAL Hx Chronic Kidney Disease: No - ENDOCRINE/METABOLIC Hx Endocrine Disorders: Yes Other/Comment: hypoglycemia - HEMATOLOGICAL/ONCOLOGICAL Hx Blood Disorders: Yes Hx Anemia: Yes (iron deficiency) - INTEGUMENTARY Other/Comment: dry skin both feet/ankles - MUSCULOSKELETAL/RHEUMATOLOGICAL Hx Musculoskeletal Disorders: Yes Hx Falls: Yes - GASTROINTESTINAL Hx Gastrointestinal Disorders: Yes Hx Gastroesophageal Reflux: Yes Hx Pancreatitis: Yes Other/Comment: colonoscopy 07/21/17: redundant colon and internal hemorrhoids - GENITOURINARY/GYNECOLOGICAL Hx Genitourinary Disorders: Yes Hx Urinary Tract Infection: Yes - PSYCHIATRIC Hx Psychophysiologic Disorder: Yes (H/O HEROINE ABUSE,SNORTED) Hx Substance Use: Yes (quit snorting heroine "3 months ago" pt stated) Other/Comment: quit snorting heroine "about 4 months ago" pt stated. Pt on [employer] program , drinks 1/2 pt liquor occasionally, smokes 10 cigs a day - SURGICAL HISTORY Hx Open Heart Surgery: Yes (AAA REPAIR) Other/Comment: aneurysm in his chest December 2014, pancreatic pseudocyst abcess drainage 11/14/16 - ANESTHESIA Hx Anesthesia: Yes Hx Anesthesia Reactions: No Hx Malignant Hyperthermia: No Meds Allergies/Adverse Reactions: Allergies Allergy/AdvReac Type Severity Reaction Status Date / Time No Known Allergies Allergy Verified 02/13/18 01:45 - Medications Medications: Current Medications Acetaminophen (Tylenol 325mg Tab) 650 mg PO Q6H PRN PRN Reason: Pain, moderate (4-7) Aspirin (Aspirin Chewable) 81 mg PO DAILY [facility] Last Admin: 02/13/18 10:01 Dose: 81 mg Enoxaparin Sodium (Lovenox) 60 mg SC Q12H [facility] PRN Reason: Protocol Last Admin: 02/13/18 09:51 Dose: Not Given Famotidine (Pepcid) [address] [facility] Ferrous Sulfate (Feosol) 324 mg PO TID [facility] Last Admin: 02/13/18 10:01 Dose: 324 mg Folic Acid (Folic Acid) 1 mg PO DAILY [facility] Last Admin: 02/13/18 10:01 Dose: 1 mg Multivitamins/Vitamin C 10 ml/Thiamine HCl 100 mg/ Folic Acid 1 mg/ Sodium Chloride 1,011.2 mls @ 100 mls/hr IV .Q10H7M ONE Stop: 02/13/18 17:24 Last Admin: 02/13/18 10:06 Dose: 100 mls/hr Lorazepam (Ativan) 2 mg IVP Q6H [facility] PRN Reason: Protocol Lorazepam (Ativan) 1 mg IVP Q1H PRN; Protocol PRN Reason: Symptoms of alcohol withdrawl Metoprolol Succinate (Toprol Xl) 25 mg PO BRK [facility] Last Admin: 02/13/18 10:01 Dose: 25 mg Multivitamins (Thera Tab) 1 tab PO 0800 [facility] Last Admin: 02/13/18 10:01 Dose: 1 tab Thiamine HCl (Vitamin B1 Tab) 100 mg PO DAILY [facility] Last Admin: 02/13/18 10:01 Dose: 100 mg Physical Exam - Constitutional Appears: Well, Non-toxic, No Acute Distress - Head Exam Head Exam: ATRAUMATIC, NORMOCEPHALIC - Eye Exam Eye Exam: EOMI, Normal appearance - Respiratory Exam Respiratory Exam: Clear to Auscultation Bilateral, NORMAL BREATHING PATTERN. absent: Accessory Muscle Use, Wheezes, Respiratory Distress - Cardiovascular Exam Cardiovascular Exam: REGULAR RHYTHM. absent: Tachycardia - GI/Abdominal Exam GI & Abdominal Exam: Normal Bowel Sounds, Soft, Tenderness (present diffusely throughout exam upon palpation.). absent: Distended, Firm, Guarding, Pulsatile Mass - Neurological Exam Neurological exam: Alert, Oriented x3 - Psychiatric Exam Psychiatric exam: Normal Affect, Normal Mood - Skin Skin Exam: Dry, Intact, Normal Color, Warm Results - Vital Signs Recent Vital Signs: Last Vital Signs Temp 100.2 F H 02/13/18 02:30 Pulse 83 02/13/18 10:01 Resp 17 02/13/18 08:01 BP 146/93 H 02/13/18 10:01 Pulse Ox 97 02/13/18 08:01 - Labs Result Diagrams: 02/13/18 02:20 02/13/18 02:51 Labs: Laboratory Results - last 24 hr 02/13/18 02/13/18 02/13/18 08:20 08:20 08:20 pO2 70 H VBG pH 7.51 H VBG pCO2 34.0 L VBG HCO3 27.1 VBG Total CO2 28.1 H VBG O2 Sat (Calc) 95.8 H VBG Base Excess 4.3 H VBG Potassium 4.0 Sodium 138.0 Chloride 103.0 Glucose 87 Lactate 1.1 FiO2 21.0 Iron 49 TIBC 239 L % Saturation 21 Troponin I 0.03 D Venous Blood Potassium 4.0 Alcohol, Quantitative 02/13/18 08:20 pO2 VBG pH VBG pCO2 VBG HCO3 VBG Total CO2 VBG O2 Sat (Calc) VBG Base Excess VBG Potassium Sodium Chloride Glucose Lactate FiO2 Iron TIBC % Saturation Troponin I Venous Blood Potassium Alcohol, Quantitative < 10 Assessment & Plan - Assessment and Plan (Free Text) Assessment: 52 yo M presents with chest pain who has chronic aortic dissection and s/p AAA repair 2014 who is suspected to have SMA thrombosis. Plan: - No plan for vascular surgical intervention at this time - Noted to be a chronic process with no acute changes - Cont management as per primary team - Further recommendations per Dr. Garrido - Date & Time Date: 02/13/18 Time: 11:42
[2018-02-13 12:36] LABS: HEPATITIS B SURFACE AG Negative (NEGATIVE)
[2018-02-13 12:42] LABS: HEPATITIS A IGM NEGATIVE (NEGATIVE); HEPATITIS B CORE AB NEGATIVE (NEGATIVE)
[2018-02-13 12:53] LABS: HEPATITIS C ANTIBODY NEGATIVE (NEGATIVE)
[2018-02-13 15:21] LABS: PH,URINE 6.5 (4.7-8.0); URINE BILIRUBIN MODERATE (NEGATIVE); URINE BLOOD NEGATIVE (NEGATIVE); URINE GLUCOSE (UA) NEGATIVE (NEGATIVE); URINE LEUKOCYTE ESTERASE NEGATIVE Leu/uL (NEGATIVE); URINE PROTEIN 30 mg/dL (<30 mg/dL)
[2018-02-13 15:27] LABS: URINE APPEARANCE CLEAR (CLEAR); URINE COLOR DARK YELLOW (YELLOW)
[2018-02-13 15:37] LABS: BARBITURATES, UR NEGATIVE (NEGATIVE); URINE RBC NEGATIVE /hpf (0-2); URINE WBC NEGATIVE /hpf (0-6)
[2018-02-13 15:44] LABS: BENZODIAZEPINES, UR POSITIVE (NEGATIVE); OPIATES, UR NEGATIVE (NEGATIVE); PHENCYCLIDINE, UR NEGATIVE (NEGATIVE)
--- NOTE | 2018-02-13 16:35 | CARD ---
APPROVED REPORT Date of service: 02/13/2018 EKG Measurement Heart [id number] <Conclusion> Normal sinus rhythm Prolonged QT Abnormal ECG
--- NOTE | 2018-02-13 16:38 | CARD ---
APPROVED REPORT Date of service: 02/13/2018 EKG Measurement Heart [id number] <Conclusion> Normal sinus rhythm Prolonged QT Abnormal ECG
--- NOTE | 2018-02-13 16:44 | CARD ---
APPROVED REPORT Date of service: 02/13/2018 EKG Measurement Heart [id number] MA [id number] [id number] <Conclusion> Sinus tachycardia Nonspecific ST abnormality Abnormal ECG
[2018-02-13 16:59] LABS: AMYLASE 131 U/L (35-125); LIPASE 267 U/L (23-300)
[2018-02-14 06:39] LABS: BASO # 0.02 K/mm3 (0.0-2.0); BASO % 0.3 % (0.0-3.0); EOS % 0.5 % (1.5-5.0); GRAN # 4.85 (1.4-6.5); GRAN % 66.5 % (50.0-68.0); HEMOGLOBIN 11.7 g/dL (14.0-18.0); LYMPH # 1.8 (1.2-3.4); LYMPH % 24.7 % (22.0-35.0); MEAN CELL VOLUME 74.2 fl (80.0-105.0); MEAN CORPUSCULAR HEMOGLOBIN 26.2 pg (25.0-35.0); MEAN CORPUSCULAR HGB CONC 35.3 g/dl (31.0-37.0); MEAN PLATELET VOLUME 10.6 fl (7.0-11.0); MONO # 0.6 (0.1-0.6); RBC 4.46 10^6/uL (3.5-6.1); RED CELL DISTRIBUTION WIDTH 17.6 % (11.5-14.5); WHITE BLOOD COUNT 7.3 10^3/ul (4.5-11.0)
[2018-02-14 06:58] LABS: LDL CHOLESTEROL 60 mg/dL (0-129)
[2018-02-14 07:03] LABS: ALBUMIN 3.1 g/dL (3.0-4.8); ALT/SGPT 43 U/L (7-56); AST/SGOT 64 U/L (17-59); BLOOD UREA NITROGEN 13 mg/dL (7-21); CALCIUM 8.7 mg/dL (8.4-10.5); GFR AFRICAN-AMERICAN > 60; GFR NON-AFRICAN AMERICAN > 60; HDL CHOLESTEROL 90 mg/dL (29-60)
[2018-02-14] MEDS: Multivitamin Therapeutic Tab PO SCH (08:52)
[2018-02-14] MEDS: Metoprolol Succinate 25 mg XL Tab PO SCH (08:52)
[2018-02-14] MEDS ORDERED: Potassium Chloride 40 mEq/30 ml LIQ UD PO ONE (09:35)
[2018-02-14] MEDS ORDERED: Magnesium 2 gm/50 ml NS 2 GM/50 ML BAG IVPB ONE (10:23)
--- NOTE | 2018-02-14 12:46 | CP.PCM.PN ---
<Den Henriquez - Last Filed: 02/14/18 14:23> Subjective - Date & Time of Evaluation Date of Evaluation: 02/14/18 Time of Evaluation: 12:43 - Subjective Subjective: PGY-1 Den Henriquez Internal [facility] progress note for Dr. Healy: Patient was seen at bedside, no acute overnight events. Patient admits to having baseline chest pain and auditory and visual hallucinations. He denies suicidal/homicidal ideations, fevers, chills, shortness of breath, abdominal pain, or diarrhea/vomiting. Objective - Vital Signs/Intake and Output Vital Signs (last 24 hours): Temp Pulse Resp BP Pulse Ox 99.2 F 75 18 152/104 H 99 02/14/18 12:00 02/14/18 12:00 02/14/18 12:00 02/14/18 12:00 02/14/18 08:00 - Medications Medications: Current Medications Acetaminophen (Tylenol 325mg Tab) 650 mg PO Q6H PRN PRN Reason: Pain, moderate (4-7) Aspirin (Aspirin Chewable) 81 mg PO DAILY [facility] Last Admin: 02/14/18 09:11 Dose: 81 mg Enoxaparin Sodium (Lovenox) 60 mg SC Q12H [facility] PRN Reason: Protocol Last Admin: 02/13/18 09:51 Dose: Not Given Famotidine (Pepcid) 40 mg PO HS [facility] Last Admin: 02/13/18 23:38 Dose: Not Given Ferrous Sulfate (Feosol) 324 mg PO TID [facility] Last Admin: 02/14/18 09:11 Dose: 324 mg Folic Acid (Folic Acid) 1 mg PO DAILY [facility] Last Admin: 02/14/18 09:11 Dose: 1 mg Lorazepam (Ativan) 1 mg IVP Q1H PRN; Protocol PRN Reason: Symptoms of alcohol withdrawl Last Admin: 02/13/18 19:13 Dose: 1 mg Lorazepam (Ativan) 2 mg IVP Q4H [facility] PRN Reason: Protocol Last Admin: 02/14/18 08:51 Dose: 2 mg Metoprolol Succinate (Toprol Xl) 25 mg PO BRK [facility] Last Admin: 02/14/18 08:52 Dose: 25 mg Multivitamins (Thera Tab) 1 tab PO 0800 [facility] Last Admin: 02/14/18 08:52 Dose: 1 tab Thiamine HCl (Vitamin B1 Tab) 100 mg PO DAILY [facility] Last Admin: 02/14/18 09:11 Dose: 100 mg - Labs Labs: 02/14/18 06:00 02/14/18 06:00 PT 11.1 SECONDS (9.4-12.5) 02/13/18 02:51 INR 0.97 (0.93-1.08) 02/13/18 02:51 APTT 24.4 Seconds (25.1-36.5) L 02/13/18 02:51 - Constitutional Appears: No Acute Distress - Head Exam Head Exam: ATRAUMATIC, NORMAL INSPECTION - Eye Exam Eye Exam: Normal appearance - ENT Exam ENT Exam: Mucous Membranes Moist - Respiratory Exam Respiratory Exam: Clear to Ausculation Bilateral. absent: Rales, Rhonchi, Wheezes - Cardiovascular Exam Cardiovascular Exam: REGULAR RHYTHM, +S1, +S2. absent: Gallop, Rubs, Murmur - GI/Abdominal Exam GI & Abdominal Exam: Soft, Normal Bowel Sounds. absent: Tenderness - Extremities Exam Extremities Exam: absent: Calf Tenderness, Pedal Edema - Neurological Exam Neurological Exam: Alert, Awake, Oriented x3 Additional comments: Right hand tremor present - Psychiatric Exam Psychiatric exam: Normal Affect, Normal Mood - Skin Skin Exam: Diaphoretic, Normal Color, Warm Assessment and Plan - Assessment and Plan (Free Text) Assessment: Mr. Delgado is a 52 year old male with PMH of HTN, HLD, chronic pancreatitis, aortic dissection s/p repair, microcytic anemia, polysubstance abuse, and alcoholism presenting with chest pain and alcohol withdrawal. Plan: Alcohol abuse/withdrawal - Admits to stopping a week ago - CIWA protocol, CIWA score of 9 - changed to Ativan 2mg q4, Ativan 1mg PRN - c/w folic acid, thiamine, multivitamins. - Banana bag given - With the patient's permission, we spoke to his father in detail regarding his son's health issues and the need for him to stop using alcohol. Chest pain - Most likely secondary to chronic aortic dissection vs musculoskeletal vs acute coronary syndrome - Troponins negative x3 - EKG showed NSR @ 80, prolonged QTc, no ST elevations. - CXR: No active disease Partial SMA thrombosis - Vascular surgery consulted- Dr. 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 Hx of opioid abuse - Currently on methadone 130mg - [facility] - dose confirmed Microcytic anemia - Has history of chronic microcytic anemia - c/w iron supplements Elevated LFTs - Most likely secondary to EtOH abuse - Hepatitis panel negative for Hep A, B, and C. - Continue to monitor LFT's GI and DVT/PE PPX: - Lovenox 40 sc, Pepcid 40 Case and plan were discussed in detail with Dr. Healy. <Karina Healy - Last Filed: 02/15/18 16:09> Objective - Vital Signs/Intake and Output Vital Signs (last 24 hours): Temp Pulse Resp BP Pulse Ox 98.6 F 87 20 137/86 98 02/15/18 12:00 02/15/18 14:00 02/15/18 12:00 02/15/18 12:00 02/15/18 06:00 Intake and Output: 02/15/18 02/15/18 06:59 18:59 Intake Total 600 1320 Output Total 850 600 Balance -250 720 - Medications Medications: Current Medications Acetaminophen (Tylenol 325mg Tab) 650 mg PO Q6H PRN PRN Reason: Pain, moderate (4-7) Last Admin: 02/14/18 20:04 Dose: 650 mg Aspirin (Aspirin Chewable) 81 mg PO DAILY [facility] Last Admin: 02/15/18 10:01 Dose: 81 mg Famotidine (Pepcid) 40 mg PO HS [facility] Last Admin: 02/14/18 21:49 Dose: Not Given Ferrous Sulfate (Feosol) 324 mg PO TID [facility] Last Admin: 02/15/18 15:33 Dose: 324 mg Folic Acid (Folic Acid) 1 mg PO DAILY [facility] Last Admin: 02/15/18 10:01 Dose: 1 mg Lorazepam (Ativan) 2 mg PO Q8H [facility] PRN Reason: Protocol Last Admin: 02/15/18 15:33 Dose: 2 mg Lorazepam (Ativan) 1 mg PO Q2 PRN; Protocol PRN Reason: Symptoms of alcohol withdrawl Metoprolol Succinate (Toprol Xl) 25 mg PO BRK [facility] Last Admin: 02/15/18 07:55 Dose: 25 mg Multivitamins (Thera Tab) 1 tab PO 0800 [facility] Last Admin: 02/15/18 07:55 Dose: 1 tab Thiamine HCl (Vitamin B1 Tab) 100 mg PO BID [facility] - Labs Labs: 02/15/18 05:30 02/15/18 05:30 PT 11.1 SECONDS (9.4-12.5) 02/13/18 02:51 INR 0.97 (0.93-1.08) 02/13/18 02:51 APTT 24.4 Seconds (25.1-36.5) L 02/13/18 02:51 Attending/Attestation - Attestation I have personally seen and examined this patient.: Yes I have fully participated in the care of the patient.: Yes I have reviewed all pertinent clinical information, including history, physical exam and plan: Yes Notes (Text): 02/15/18 16:03 attending note; Patient seen and examined with resident. Patient is a 52 year old male with PMH of HTN, HLD, chronic pancreatitis, aortic dissection s/p repair,anemia, polysubstance abuse, and alcoholism presenting with chest pain and alcohol withdrawal. patient has lost nonspecific pain. Currently in alcohol withdrawal. CT chest abdomen and pelvis showed pancreatic pseudocyst unchanged and aoritic dissection unchanged. also partially thrombosed aneurysm of SMA unchanged. Vascular surgery evaluation appreciated. continue metoprolol. Patient is currently tolerating diet. Alcohol withdrawal; continue CIWA protocol. continue multivitamin, thiamine, folic acid. Ativan ordered. Complete alcohol cessation is advised. The diagnosis discussed with patient's father in detail by the bedside. prognosis is poor secondary to noncompliance with follow-up. upon discharge the patient will follow up with PMD . 02/15/18 16:09
[2018-02-15 06:36] LABS: BASO # 0.02 K/mm3 (0.0-2.0); BASO % 0.3 % (0.0-3.0); EOS # 0.1 (0.0-0.7); EOS % 1.4 % (1.5-5.0); GRAN # 4.02 (1.4-6.5); GRAN % 63.3 % (50.0-68.0); LYMPH # 1.6 (1.2-3.4); LYMPH % 24.8 % (22.0-35.0); MEAN CELL VOLUME 74.6 fl (80.0-105.0); MEAN CORPUSCULAR HEMOGLOBIN 26.7 pg (25.0-35.0); MEAN CORPUSCULAR HGB CONC 35.8 g/dl (31.0-37.0); MONO # 0.7 (0.1-0.6); MONO % 10.2 % (1.0-6.0); RBC 4.49 10^6/uL (3.5-6.1); RED CELL DISTRIBUTION WIDTH 17.7 % (11.5-14.5); WHITE BLOOD COUNT 6.4 10^3/ul (4.5-11.0)
[2018-02-15 06:59] LABS: ALB/GLOB RATIO 1.1 (1.1-1.8); ALBUMIN 3.3 g/dL (3.0-4.8); ALT/SGPT 44 U/L (7-56); AST/SGOT 54 U/L (17-59); BLOOD UREA NITROGEN 9 mg/dL (7-21); GFR AFRICAN-AMERICAN > 60; GFR NON-AFRICAN AMERICAN > 60
[2018-02-15] MEDS: Metoprolol Succinate 25 mg XL Tab PO SCH (07:55)
[2018-02-15] MEDS: Multivitamin Therapeutic Tab PO SCH (07:55)
[2018-02-15] MEDS: Enoxaparin 60 mg Syringe SC SCH (07:55)
--- NOTE | 2018-02-15 13:49 | CP.PCM.PN ---
<Den Henriquez - Last Filed: 02/15/18 15:30> Subjective - Date & Time of Evaluation Date of Evaluation: 02/15/18 Time of Evaluation: 13:45 - Subjective Subjective: PGY-1 Den Henriquez Internal Medicine progress note for Dr. Healy: Patient was seen at bedside. As per nursing, patient experienced bright red blood per urthera yesterday afternoon. Patient was seen and examined during that event. It was determined the blood was secondary to trauma. Bleeding resolved without acute intervention. Patient denies auditory and visual hallucinations. He denies suicidal/homicidal ideations, fevers, chills, shortness of breath, abdominal pain, or diarrhea/vomiting. Objective - Vital Signs/Intake and Output Vital Signs (last 24 hours): Temp Pulse Resp BP Pulse Ox 98.6 F 84 20 137/86 98 02/15/18 12:00 02/15/18 12:00 02/15/18 12:00 02/15/18 12:00 02/15/18 06:00 Intake and Output: 02/15/18 02/15/18 06:59 18:59 Intake Total 600 Output Total 850 Balance -250 - Medications Medications: Current Medications Acetaminophen (Tylenol 325mg Tab) 650 mg PO Q6H PRN PRN Reason: Pain, moderate (4-7) Last Admin: 02/14/18 20:04 Dose: 650 mg Aspirin (Aspirin Chewable) 81 mg PO DAILY [facility] Last Admin: 02/15/18 10:01 Dose: 81 mg Famotidine (Pepcid) 40 mg PO HS [facility] Last Admin: 02/14/18 21:49 Dose: Not Given Ferrous Sulfate (Feosol) 324 mg PO TID [facility] Last Admin: 02/15/18 10:01 Dose: 324 mg Folic Acid (Folic Acid) 1 mg PO DAILY [facility] Last Admin: 02/15/18 10:01 Dose: 1 mg Heparin Sodium (Porcine) (Heparin) 5,000 units SC Q8 [facility] PRN Reason: Protocol Stop: 02/18/18 23:59 Lorazepam (Ativan) 2 mg IVP Q4H [facility] PRN Reason: Protocol Last Admin: 02/15/18 12:16 Dose: 2 mg Lorazepam (Ativan) 2 mg IVP Q8H PRN; Protocol PRN Reason: Anxiety Lorazepam (Ativan) 1 mg IVP Q2H PRN; Protocol PRN Reason: Symptoms of alcohol withdrawl Metoprolol Succinate (Toprol Xl) 25 mg PO BRK [facility] Last Admin: 02/15/18 07:55 Dose: 25 mg Multivitamins (Thera Tab) 1 tab PO 0800 [facility] Last Admin: 02/15/18 07:55 Dose: 1 tab Thiamine HCl (Vitamin B1 Tab) 100 mg PO DAILY [facility] Last Admin: 02/15/18 10:01 Dose: 100 mg - Labs Labs: 02/15/18 05:30 02/15/18 05:30 PT 11.1 SECONDS (9.4-12.5) 02/13/18 02:51 INR 0.97 (0.93-1.08) 02/13/18 02:51 APTT 24.4 Seconds (25.1-36.5) L 02/13/18 02:51 - Constitutional Appears: No Acute Distress - Head Exam Head Exam: ATRAUMATIC, NORMAL INSPECTION - Eye Exam Eye Exam: Normal appearance - ENT Exam ENT Exam: Mucous Membranes Moist - Respiratory Exam Respiratory Exam: Clear to Ausculation Bilateral. absent: Rales, Rhonchi, Wheezes - Cardiovascular Exam Cardiovascular Exam: REGULAR RHYTHM, +S1, +S2. absent: Gallop, Rubs, Murmur - GI/Abdominal Exam GI & Abdominal Exam: Soft, Normal Bowel Sounds. absent: Distended, Tenderness - Extremities Exam Extremities Exam: Normal Inspection. absent: Calf Tenderness, Pedal Edema - Neurological Exam Neurological Exam: Alert, Awake, Oriented x3 - Psychiatric Exam Psychiatric exam: Normal Affect, Normal Mood. absent: Homicidal Ideation, Suicidal Ideation - Skin Skin Exam: Dry, Normal Color, Warm. absent: Diaphoretic Assessment and Plan - Assessment and Plan (Free Text) Assessment: Mr. Delgado is a 52 year old male with PMH of HTN, HLD, chronic pancreatitis, aortic dissection s/p repair, microcytic anemia, polysubstance abuse, and alcoholism who presented with chest pain and now is being treated for alcohol withdrawal. Plan: Chest pain- resolved - Most likely muskuloskeletal - Less like ACS, Troponins negative x3, no acute changes on EKG - CTA was done and showed that patient has chronic aortic dissection. - EKG showed NSR @ 80, prolonged QTc, no ST elevation. - CXR: No active disease Alcohol withdrawal - Alcohol level was less than 10 on admission - S/p banana bag - Continue CIWA protocol Q4 - Continue neurochecks Q6H - Tapering down Ativan treatments. Changed to Ativan 2mg Q8, Ativan 1mg Q2 PRN - c/w folic acid, thiamine, multivitamins. - Placed on fall precautions. - PT consulted for gait instability. Transaminitis - Most likely secondary to EtOH abuse. - Hepatitis panel negative for Hep A, B, and C. - LFT's trending down. - Continue to monitor LFT's. Partial SMA thrombosis and chronic aortic dissection - Vascular surgery consulted- Dr. 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 - C/w Metoprolol Hx of opioid abuse - Currently on methadone 130mg - [facility] - dose confirmed Microcytic anemia - Has history of chronic microcytic anemia - c/w iron supplements Chronic thrombocytopenia - Likely due to chronic alcoholism - Platelet count fluctuating but above 50,000 - No active bleeding, will continue to monitor. Hypokalemia, hypomagnesemia- resolved - Likely due to alcoholism and poor intake - Potassium and magnesium was repleted - Will continue to monitor GI and DVT/PE PPX: - VTE device, Pepcid 40 Case and plan were discussed in detail with Dr. Healy. <Karina Healy - Last Filed: 02/15/18 16:11> Objective - Vital Signs/Intake and Output Vital Signs (last 24 hours): Temp Pulse Resp BP Pulse Ox 98.6 F 87 20 137/86 98 02/15/18 12:00 02/15/18 14:00 02/15/18 12:00 02/15/18 12:00 02/15/18 06:00 Intake and Output: 02/15/18 02/15/18 06:59 18:59 Intake Total 600 1320 Output Total 850 600 Balance -250 720 - Medications Medications: Current Medications Acetaminophen (Tylenol 325mg Tab) 650 mg PO Q6H PRN PRN Reason: Pain, moderate (4-7) Last Admin: 02/14/18 20:04 Dose: 650 mg Aspirin (Aspirin Chewable) 81 mg PO DAILY [facility] Last Admin: 02/15/18 10:01 Dose: 81 mg Famotidine (Pepcid) 40 mg PO HS [facility] Last Admin: 02/14/18 21:49 Dose: Not Given Ferrous Sulfate (Feosol) 324 mg PO TID [facility] Last Admin: 02/15/18 15:33 Dose: 324 mg Folic Acid (Folic Acid) 1 mg PO DAILY [facility] Last Admin: 02/15/18 10:01 Dose: 1 mg Lorazepam (Ativan) 2 mg PO Q8H [facility] PRN Reason: Protocol Last Admin: 02/15/18 15:33 Dose: 2 mg Lorazepam (Ativan) 1 mg PO Q2 PRN; Protocol PRN Reason: Symptoms of alcohol withdrawl Metoprolol Succinate (Toprol Xl) 25 mg PO BRK [facility] Last Admin: 02/15/18 07:55 Dose: 25 mg Multivitamins (Thera Tab) 1 tab PO 0800 [facility] Last Admin: 02/15/18 07:55 Dose: 1 tab Thiamine HCl (Vitamin B1 Tab) 100 mg PO BID [facility] - Labs Labs: 02/15/18 05:30 02/15/18 05:30 PT 11.1 SECONDS (9.4-12.5) 02/13/18 02:51 INR 0.97 (0.93-1.08) 02/13/18 02:51 APTT 24.4 Seconds (25.1-36.5) L 02/13/18 02:51 Attending/Attestation - Attestation I have personally seen and examined this patient.: Yes I have fully participated in the care of the patient.: Yes I have reviewed all pertinent clinical information, including history, physical exam and plan: Yes Notes (Text): 02/15/18 16:10 attending note; Patient seen and examined with resident. Patient is a 52 year old male with PMH of HTN, HLD, chronic pancreatitis, aortic dissection s/p repair,anemia, polysubstance abuse, and alcoholism presenting with chest pain and alcohol withdrawal. withdrawal symptoms slowly improving. Continue to taper Ativan. continue multivitamin, thiamine, folic acid. continue metoprolol. Patient is currently tolerating diet. Alcohol withdrawal; continue CIWA protocol. Ativan ordered. Complete alcohol cessation is advised. Physical therapy evaluation appreciated. prognosis is poor secondary to noncompliance with follow-up. upon discharge the patient will follow up with PMD .
[2018-02-16 06:24] LABS: BASO # 0.03 K/mm3 (0.0-2.0); BASO % 0.6 % (0.0-3.0); EOS # 0.2 (0.0-0.7); GRAN # 2.98 (1.4-6.5); GRAN % 54.9 % (50.0-68.0); HEMOGLOBIN 10.6 g/dL (14.0-18.0); LYMPH # 1.5 (1.2-3.4); LYMPH % 27.7 % (22.0-35.0); MEAN CELL VOLUME 74.9 fl (80.0-105.0); MEAN CORPUSCULAR HGB CONC 34.8 g/dl (31.0-37.0); MEAN PLATELET VOLUME 10.4 fl (7.0-11.0); MONO # 0.8 (0.1-0.6); MONO % 13.8 % (1.0-6.0); RBC 4.07 10^6/uL (3.5-6.1); RED CELL DISTRIBUTION WIDTH 17.6 % (11.5-14.5); WHITE BLOOD COUNT 5.4 10^3/ul (4.5-11.0)
[2018-02-16 06:48] LABS: ALB/GLOB RATIO 1.1 (1.1-1.8); ALBUMIN 3.1 g/dL (3.0-4.8); ALT/SGPT 47 U/L (7-56); AST/SGOT 47 U/L (17-59); BLOOD UREA NITROGEN 11 mg/dL (7-21); GFR AFRICAN-AMERICAN > 60; GFR NON-AFRICAN AMERICAN > 60
[2018-02-16] MEDS ORDERED: Magnesium Sulfate 2 GM in Sodium Chloride 0.9% 100 ML IV ONE (06:57)
[2018-02-16] MEDS ORDERED: Magnesium 2 gm/50 ml NS 2 GM/50 ML BAG IVPB ONE (07:15)
[2018-02-16] MEDS: Metoprolol Succinate 25 mg XL Tab PO SCH (08:17)
[2018-02-16] MEDS: Multivitamin Therapeutic Tab PO SCH (08:17)
[2018-02-16 10:49] VITALS: O2SAT 97
[2018-02-16 11:41] VITALS: BP 115/86; PULSE 91; RESP 20; TEMP 97.9
--- NOTE | 2018-02-16 13:03 | CP.PCM.DIS ---
<Den Henriquez - Last Filed: 02/16/18 13:45> Provider - Provider Date of Admission: 02/13/18 05:55 Attending physician: Karina Healy MD Primary care physician: Brennen Galvez Jr, MD Time Spent in preparation of Discharge (in minutes): 45 Diagnosis - Discharge Diagnosis (1) Chest pain Status: Chronic Priority: Medium (2) Alcohol withdrawal Status: Resolved Priority: High (3) Epigastric abdominal tenderness Status: Chronic Priority: Medium (4) Alcohol abuse Status: Chronic Priority: Medium (5) Abdominal pain Status: Chronic Priority: Medium (6) Hypokalemia Status: Resolved Priority: Medium (7) Hypomagnesemia Status: Resolved Priority: Medium (8) Anemia Status: Chronic Priority: Medium (9) Drug abuse Status: Chronic Priority: Medium (10) Elevated transaminase level Status: Resolved Priority: Medium (11) Superior mesenteric artery thrombosis Status: Chronic Priority: Medium (12) Thrombocytopenia Status: Chronic Priority: Medium Hospital Course - Lab Results Lab Results: Micro Results 02/13/18 11:00 Blood-Venous Blood Culture - Preliminary NO GROWTH AFTER 3 DAYS 02/13/18 10:30 Blood-Venous Blood Culture - Preliminary NO GROWTH AFTER 3 DAYS Most Recent Lab Values WBC 5.4 10^3/ul (4.5-11.0) 02/16/18 05:40 RBC 4.07 10^6/uL (3.5-6.1) 02/16/18 05:40 Hgb 10.6 g/dL (14.0-18.0) L 02/16/18 05:40 Hct 30.5 % (42.0-52.0) L 02/16/18 05:40 MCV 74.9 fl (80.0-105.0) L 02/16/18 05:40 MCH 26.0 pg (25.0-35.0) 02/16/18 05:40 MCHC 34.8 g/dl (31.0-37.0) 02/16/18 05:40 RDW 17.6 % (11.5-14.5) H 02/16/18 05:40 Plt Count 68 10^3/uL (120.0-450.0) L 02/16/18 05:40 MPV 10.4 fl (7.0-11.0) 02/16/18 05:40 Gran % 54.9 % (50.0-68.0) 02/16/18 05:40 Lymph % (Auto) 27.7 % (22.0-35.0) 02/16/18 05:40 [place] % (Auto) 13.8 % (1.0-6.0) H 02/16/18 05:40 Eos % (Auto) 3.0 % (1.5-5.0) 02/16/18 05:40 Baso % (Auto) 0.6 % (0.0-3.0) 02/16/18 05:40 Gran # 2.98 (1.4-6.5) 02/16/18 05:40 Lymph # (Auto) 1.5 (1.2-3.4) 02/16/18 05:40 [place] # (Auto) 0.8 (0.1-0.6) H 02/16/18 05:40 Eos # (Auto) 0.2 (0.0-0.7) 02/16/18 05:40 Baso # (Auto) 0.03 K/mm3 (0.0-2.0) 02/16/18 05:40 PT 11.1 SECONDS (9.4-12.5) 02/13/18 02:51 INR 0.97 (0.93-1.08) 02/13/18 02:51 APTT 24.4 Seconds (25.1-36.5) L 02/13/18 02:51 pO2 70 mm/Hg (30-55) H 02/13/18 08:20 VBG pH 7.51 (7.32-7.43) H 02/13/18 08:20 VBG pCO2 34.0 (40-60) L 02/13/18 08:20 VBG HCO3 27.1 mmol/l (21-28) 02/13/18 08:20 VBG Total CO2 28.1 mmol.L (22-28) H 02/13/18 08:20 VBG O2 Sat (Calc) 95.8 % (40-65) H 02/13/18 08:20 VBG Base Excess 4.3 mmol/L (0.0-2.0) H 02/13/18 08:20 VBG Potassium 4.0 mmol/L (3.6-5.2) 02/13/18 08:20 Sodium 138.0 mmol/L (132-148) 02/13/18 08:20 Chloride 103.0 mmol/L (98-107) 02/13/18 08:20 Glucose 87 mg/dl (75-110) 02/13/18 08:20 Lactate 1.1 mmol/L (0.7-2.1) 02/13/18 08:20 FiO2 21.0 % 02/13/18 08:20 Sodium 138 mmol/L (132-148) 02/16/18 05:40 Potassium 4.0 mmol/L (3.6-5.0) 02/16/18 05:40 Chloride 101 mmol/L (98-107) 02/16/18 05:40 Carbon Dioxide 29 mmol/L (21-33) 02/16/18 05:40 Anion Gap 12 (10-20) 02/16/18 05:40 BUN 11 mg/dL (7-21) 02/16/18 05:40 Creatinine 0.6 mg/dl (0.8-1.5) L 02/16/18 05:40 Est GFR ( Amer) > 60 02/16/18 05:40 Est GFR (Non-Af Amer) > 60 02/16/18 05:40 Random Glucose 73 mg/dL (70-110) 02/16/18 05:40 Calcium 9.0 mg/dL (8.4-10.5) 02/16/18 05:40 Magnesium 1.6 mg/dL (1.7-2.2) L 02/16/18 05:40 Iron 49 ug/dL (45-180) 02/13/18 08:20 TIBC 239 ug/dL (261-462) L 02/13/18 08:20 % Saturation 21 % (20-55) 02/13/18 08:20 Transferrin 183.12 mg/dL (206-381) L 02/13/18 08:20 Ferritin 692.0 ng/mL 02/13/18 08:20 Total Bilirubin 0.7 mg/dL (0.2-1.3) 02/16/18 05:40 AST 47 U/L (17-59) 02/16/18 05:40 ALT 47 U/L (7-56) 02/16/18 05:40 Alkaline Phosphatase 88 U/L (38-126) 02/16/18 05:40 Total Creatine Kinase 62 U/L (35-230) 02/13/18 02:51 Troponin I < 0.01 ng/mL D 02/13/18 15:00 NT-Pro-B Natriuret Pep 353 pg/mL (0-450) 02/13/18 02:51 Total Protein 6.0 g/dL (5.8-8.3) 02/16/18 05:40 Albumin 3.1 g/dL (3.0-4.8) 02/16/18 05:40 Globulin 2.9 gm/dL 02/16/18 05:40 Albumin/Globulin Ratio 1.1 (1.1-1.8) 02/16/18 05:40 Triglycerides 111 mg/dL (35-160) 02/14/18 06:00 Cholesterol 197 mg/dL (130-200) 02/14/18 06:00 LDL Cholesterol Direct 60 mg/dL (0-129) 02/14/18 06:00 HDL Cholesterol 90 mg/dL (29-60) H 02/14/18 06:00 Amylase 131 U/L (35-125) H 02/13/18 16:45 Lipase 267 U/L (23-300) 02/13/18 16:45 Venous Blood Potassium 4.0 mmol/L (3.6-5.2) 02/13/18 08:20 Urine Color Dark yellow (YELLOW) 02/13/18 15:02 Urine Appearance Clear (CLEAR) 02/13/18 15:02 Urine pH 6.5 (4.7-8.0) 02/13/18 15:02 Ur Specific [place] 1.010 (1.005-1.035) 02/13/18 15:02 Urine Protein 30 mg/dL (<30 mg/dL) H 02/13/18 15:02 Urine Glucose (UA) Negative mg/dL (NEGATIVE) 02/13/18 15:02 Urine Ketones 40 mg/dL (NEGATIVE) H 02/13/18 15:02 Urine Blood Negative (NEGATIVE) 02/13/18 15:02 Urine Nitrate Negative (NEGATIVE) 02/13/18 15:02 Urine Bilirubin Moderate (NEGATIVE) H 02/13/18 15:02 Urine Urobilinogen 1.0 E.U./dL (<1 E.U./dL) H 02/13/18 15:02 Ur Leukocyte Esterase Negative Singh/uL (NEGATIVE) 02/13/18 15:02 Urine RBC Negative /hpf (0-2) 02/13/18 15:02 Urine WBC Negative /hpf (0-6) 02/13/18 15:02 Ur Epithelial Cells None /hpf (0-5) 02/13/18 15:02 Urine Opiates Screen Negative (NEGATIVE) 02/13/18 15:02 Urine Methadone Screen Positive (NEGATIVE) H 02/13/18 15:02 Ur Barbiturates Screen Negative (NEGATIVE) 02/13/18 15:02 Ur Phencyclidine Scrn Negative (NEGATIVE) 02/13/18 15:02 Ur Amphetamines Screen Negative (NEGATIVE) 02/13/18 15:02 U Benzodiazepines Scrn Positive (NEGATIVE) H 02/13/18 15:02 U Oth Cocaine Metabols Negative (NEGATIVE) 02/13/18 15:02 U Cannabinoids Screen Negative (NEGATIVE) 02/13/18 15:02 Alcohol, Quantitative < 10 mg/dL (0-10) 02/13/18 08:20 Hepatitis A IgM Ab Negative (NEGATIVE) 02/13/18 07:30 Hep Bs Antigen Negative (NEGATIVE) 02/13/18 07:30 Hep B Core IgM Ab Negative (NEGATIVE) 02/13/18 07:30 Hepatitis C Antibody Negative (NEGATIVE) 02/13/18 07:30 - Hospital Course Hospital Course: Mr. Delgado is a 52 year old male with PMH of HTN, HLD, chronic pancreatitis, aortic dissection s/p repair, microcytic anemia, polysubstance abuse, and alcoholism who presented with chest pain and now was being treated for alcohol withdrawal. Patient was placed on CIWA protocol, fall precautions, and regular neurochecks. He was treated with scheduled ativan and PRN ativan, 1x banana bag , thiamine, folic acid, iron, multivitamin, metoprolol, and aspirin . Patient was also given his daily dose of methadone. During the course of his hospital stay, he underwent EKG, CT Angiography, extremity ultrasound, and chest xray. EKG showed sinus rhythm at a rate of 80, prolonged QT with a QTc of 509. 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 Extremity ultrasound showed no DVT in the extremities. Chest xray showed no active disease. Vascular surgery (Dr. Garrido) was consulted for patient's history of SMA thrombosis. Dr. Garrido noted that his condition is a chronic process with no acute changes and no plan for vascular surgical intervention at this time. Patient was instructed to resume activity as tolerated and to start a heart healthy diet at home. Patient instructed to continue taking these medications: ASA, lipitor, vitamin D, ferrous sulfate, folic acid, metoprolol, multivitamin, and thiamine. Patient also instructed to continue his methadone treatment at [facility] [place]. Patient was educated on the correct way to take medications and was instructed to follow up with his primary care doctor within one week of discharge. He was also encouraged to discontinue alcohol use and educated on the negative health risks of alcohol abuse. He was offered information regarding local AA meetings in the area. Patient further informed to return to the ED for worsening of symptoms.Patient is now medically optimized for discharge. Discharge Exam - Head Exam Head Exam: ATRAUMATIC, NORMAL INSPECTION - Eye Exam Eye Exam: Normal appearance - ENT Exam ENT Exam: Mucous Membranes Moist - Respiratory Exam Respiratory Exam: Clear to PA & Lateral. absent: Rales, Rhonchi, Wheezes - Cardiovascular Exam Cardiovascular Exam: REGULAR RHYTHM, +S1, +S2. absent: Gallop, Rubs, Systolic Murmur - GI/Abdominal Exam GI & Abdominal Exam: Normal Bowel Sounds, Soft, Tenderness Additional comments: Abdomen slightly tender on palpation on the right side. - Extremities Exam Additional comments: No calf tenderness or pedal edema - Neurological Exam Neurological exam: Alert, Oriented x3 - Psychiatric Exam Psychiatric exam: Normal Affect, Normal Mood - Skin Skin Exam: Dry, Normal Color, Warm Discharge Plan - Discharge Medications Prescriptions: Folic Acid 1 mg PO DAILY 30 Days tab Thiamine [Vitamin B1 Tab] 100 mg PO DAILY 30 Days tab - Follow Up Plan Condition: GUARDED Disposition: HOME/ ROUTINE Instructions: Alcohol Use - When Is Drinking a Problem?, Heart Healthy Diet, Quitting Smoking, Alcohol Abuse and Alcoholism (DC), Chest Pain (DC), Acute Abdominal Pain (DC), Acute Abdominal Pain (GEN) Additional Instructions: Please follow up with your Primary care doctor, next week. Ambulate with walker at home to reduce the risk of falls. Family support - at home. Its extremely important that you stop drinking alcohol, and you follow up for the AAA meeting ( information giving to you by the auto glass worker). Stop smoking. Continue with your home medications Please return if the symptoms returns. Diet: Heart healthy diet Patient states he refuses, all the time, and continues to refuse the flu and the pneumococcal vaccines. Referrals: Brennen Galvez Jr., MD [Primary Care Provider] - <Karina Healy - Last Filed: 02/16/18 15:55> Provider - Provider Date of Admission: 02/13/18 05:55 Attending physician: Karina Healy MD Primary care physician: Brennen Galvez Jr, MD Hospital Course - Lab Results Lab Results: Micro Results 02/13/18 11:00 Blood-Venous Blood Culture - Preliminary NO GROWTH AFTER 3 DAYS 02/13/18 10:30 Blood-Venous Blood Culture - Preliminary NO GROWTH AFTER 3 DAYS Most Recent Lab Values WBC 5.4 10^3/ul (4.5-11.0) 02/16/18 05:40 RBC 4.07 10^6/uL (3.5-6.1) 02/16/18 05:40 Hgb 10.6 g/dL (14.0-18.0) L 02/16/18 05:40 Hct 30.5 % (42.0-52.0) L 02/16/18 05:40 MCV 74.9 fl (80.0-105.0) L 02/16/18 05:40 MCH 26.0 pg (25.0-35.0) 02/16/18 05:40 MCHC 34.8 g/dl (31.0-37.0) 02/16/18 05:40 RDW 17.6 % (11.5-14.5) H 02/16/18 05:40 Plt Count 68 10^3/uL (120.0-450.0) L 02/16/18 05:40 MPV 10.4 fl (7.0-11.0) 02/16/18 05:40 Gran % 54.9 % (50.0-68.0) 02/16/18 05:40 Lymph % (Auto) 27.7 % (22.0-35.0) 02/16/18 05:40 [place] % (Auto) 13.8 % (1.0-6.0) H 02/16/18 05:40 Eos % (Auto) 3.0 % (1.5-5.0) 02/16/18 05:40 Baso % (Auto) 0.6 % (0.0-3.0) 02/16/18 05:40 Gran # 2.98 (1.4-6.5) 02/16/18 05:40 Lymph # (Auto) 1.5 (1.2-3.4) 02/16/18 05:40 [place] # (Auto) 0.8 (0.1-0.6) H 02/16/18 05:40 Eos # (Auto) 0.2 (0.0-0.7) 02/16/18 05:40 Baso # (Auto) 0.03 K/mm3 (0.0-2.0) 02/16/18 05:40 PT 11.1 SECONDS (9.4-12.5) 02/13/18 02:51 INR 0.97 (0.93-1.08) 02/13/18 02:51 APTT 24.4 Seconds (25.1-36.5) L 02/13/18 02:51 pO2 70 mm/Hg (30-55) H 02/13/18 08:20 VBG pH 7.51 (7.32-7.43) H 02/13/18 08:20 VBG pCO2 34.0 (40-60) L 02/13/18 08:20 VBG HCO3 27.1 mmol/l (21-28) 02/13/18 08:20 VBG Total CO2 28.1 mmol.L (22-28) H 02/13/18 08:20 VBG O2 Sat (Calc) 95.8 % (40-65) H 02/13/18 08:20 VBG Base Excess 4.3 mmol/L (0.0-2.0) H 02/13/18 08:20 VBG Potassium 4.0 mmol/L (3.6-5.2) 02/13/18 08:20 Sodium 138.0 mmol/L (132-148) 02/13/18 08:20 Chloride 103.0 mmol/L (98-107) 02/13/18 08:20 Glucose 87 mg/dl (75-110) 02/13/18 08:20 Lactate 1.1 mmol/L (0.7-2.1) 02/13/18 08:20 FiO2 21.0 % 02/13/18 08:20 Sodium 138 mmol/L (132-148) 02/16/18 05:40 Potassium 4.0 mmol/L (3.6-5.0) 02/16/18 05:40 Chloride 101 mmol/L (98-107) 02/16/18 05:40 Carbon Dioxide 29 mmol/L (21-33) 02/16/18 05:40 Anion Gap 12 (10-20) 02/16/18 05:40 BUN 11 mg/dL (7-21) 02/16/18 05:40 Creatinine 0.6 mg/dl (0.8-1.5) L 02/16/18 05:40 Est GFR ( Amer) > 60 02/16/18 05:40 Est GFR (Non-Af Amer) > 60 02/16/18 05:40 Random Glucose 73 mg/dL (70-110) 02/16/18 05:40 Calcium 9.0 mg/dL (8.4-10.5) 02/16/18 05:40 Magnesium 1.6 mg/dL (1.7-2.2) L 02/16/18 05:40 Iron 49 ug/dL (45-180) 02/13/18 08:20 TIBC 239 ug/dL (261-462) L 02/13/18 08:20 % Saturation 21 % (20-55) 02/13/18 08:20 Transferrin 183.12 mg/dL (206-381) L 02/13/18 08:20 Ferritin 692.0 ng/mL 02/13/18 08:20 Total Bilirubin 0.7 mg/dL (0.2-1.3) 02/16/18 05:40 AST 47 U/L (17-59) 02/16/18 05:40 ALT 47 U/L (7-56) 02/16/18 05:40 Alkaline Phosphatase 88 U/L (38-126) 02/16/18 05:40 Total Creatine Kinase 62 U/L (35-230) 02/13/18 02:51 Troponin I < 0.01 ng/mL D 02/13/18 15:00 NT-Pro-B Natriuret Pep 353 pg/mL (0-450) 02/13/18 02:51 Total Protein 6.0 g/dL (5.8-8.3) 02/16/18 05:40 Albumin 3.1 g/dL (3.0-4.8) 02/16/18 05:40 Globulin 2.9 gm/dL 02/16/18 05:40 Albumin/Globulin Ratio 1.1 (1.1-1.8) 02/16/18 05:40 Triglycerides 111 mg/dL (35-160) 02/14/18 06:00 Cholesterol 197 mg/dL (130-200) 02/14/18 06:00 LDL Cholesterol Direct 60 mg/dL (0-129) 02/14/18 06:00 HDL Cholesterol 90 mg/dL (29-60) H 02/14/18 06:00 Amylase 131 U/L (35-125) H 02/13/18 16:45 Lipase 267 U/L (23-300) 02/13/18 16:45 Venous Blood Potassium 4.0 mmol/L (3.6-5.2) 02/13/18 08:20 Urine Color Dark yellow (YELLOW) 02/13/18 15:02 Urine Appearance Clear (CLEAR) 02/13/18 15:02 Urine pH 6.5 (4.7-8.0) 02/13/18 15:02 Ur Specific [place] 1.010 (1.005-1.035) 02/13/18 15:02 Urine Protein 30 mg/dL (<30 mg/dL) H 02/13/18 15:02 Urine Glucose (UA) Negative mg/dL (NEGATIVE) 02/13/18 15:02 Urine Ketones 40 mg/dL (NEGATIVE) H 02/13/18 15:02 Urine Blood Negative (NEGATIVE) 02/13/18 15:02 Urine Nitrate Negative (NEGATIVE) 02/13/18 15:02 Urine Bilirubin Moderate (NEGATIVE) H 02/13/18 15:02 Urine Urobilinogen 1.0 E.U./dL (<1 E.U./dL) H 02/13/18 15:02 Ur Leukocyte Esterase Negative Singh/uL (NEGATIVE) 02/13/18 15:02 Urine RBC Negative /hpf (0-2) 02/13/18 15:02 Urine WBC Negative /hpf (0-6) 02/13/18 15:02 Ur Epithelial Cells None /hpf (0-5) 02/13/18 15:02 Urine Opiates Screen Negative (NEGATIVE) 02/13/18 15:02 Urine Methadone Screen Positive (NEGATIVE) H 02/13/18 15:02 Ur Barbiturates Screen Negative (NEGATIVE) 02/13/18 15:02 Ur Phencyclidine Scrn Negative (NEGATIVE) 02/13/18 15:02 Ur Amphetamines Screen Negative (NEGATIVE) 02/13/18 15:02 U Benzodiazepines Scrn Positive (NEGATIVE) H 02/13/18 15:02 U Oth Cocaine Metabols Negative (NEGATIVE) 02/13/18 15:02 U Cannabinoids Screen Negative (NEGATIVE) 02/13/18 15:02 Alcohol, Quantitative < 10 mg/dL (0-10) 02/13/18 08:20 Hepatitis A IgM Ab Negative (NEGATIVE) 02/13/18 07:30 Hep Bs Antigen Negative (NEGATIVE) 02/13/18 07:30 Hep B Core IgM Ab Negative (NEGATIVE) 02/13/18 07:30 Hepatitis C Antibody Negative (NEGATIVE) 02/13/18 07:30 Attending/Attestation - Attestation I have personally seen and examined this patient.: Yes I have fully participated in the care of the patient.: Yes I have reviewed all pertinent clinical information, including history, physical exam and plan: Yes Notes (Text): 02/16/18 15:53 attending note; Patient seen and examined with resident. Patient is a 52 year old male with PMH of HTN, HLD, chronic pancreatitis, aortic dissection s/p repair,anemia, polysubstance abuse, and alcoholism is admitted with alcohol withdrawal. withdrawal symptoms improved. Currently tolerating diet. Denies any nausea, vomiting. Continue to taper Ativan. continue multivitamin, thiamine, folic acid. continue metoprolol. Alcohol withdrawal; continue CIWA protocol. Complete alcohol cessation is advised. information about AA Meetings and rehabilitation given. Physical therapy evaluation appreciated. prognosis is poor secondary to noncompliance with follow-up. patient will be discharged home today. Patient's father informed about patient's medical condition. upon discharge the patient will follow up with PMD .
== END 2018-02-16 12:41 | disposition home or self-care (01) | DRG 552 ==
LOC: ED 01:42 → ERH 05:55 → 2RNO 08:12
PROVIDERS: ADMIT Internal Medicine; ATTEND Internal Medicine
DX: K55.069 Acute infarction of intestine, part and extent unspecified (principal); I71.01 Dissection of thoracic aorta; K86.3 Pseudocyst of pancreas; D69.6 Thrombocytopenia, unspecified; E87.6 Hypokalemia; F10.239 Alcohol dependence with withdrawal, unspecified; E83.42 Hypomagnesemia; D50.9 Iron deficiency anemia, unspecified; E16.2 Hypoglycemia, unspecified; E78.5 Hyperlipidemia, unspecified; F17.210 Nicotine dependence, cigarettes, uncomplicated; I10 Essential (primary) hypertension; I71.9 Aortic aneurysm of unspecified site, without rupture; K21.9 Gastro-esophageal reflux disease without esophagitis; K86.1 Other chronic pancreatitis; F19.10 Other psychoactive substance abuse, uncomplicated; Z79.82 Long term (current) use of aspirin; Z86.79 Personal history of other diseases of the circulatory system; Z87.440 Personal history of urinary (tract) infections; Z91.19 Patient's noncompliance with other medical treatment and regimen; Z87.19 Personal history of other diseases of the digestive system; Z86.69 Personal history of other diseases of the nervous system and sense organs

== ENCOUNTER 2018-07-08 20:39 | Inpatient (IN) | payer OTHER ==
--- NOTE | 2018-07-08 20:58 | ED PDOC ---
Arrival/HPI - General Chief Complaint: Weakness/Neurological Deficit Time Seen by Provider: 07/08/18 20:42 Past Medical History - Infectious Disease Hx of Infectious Diseases: None - Tetanus Immunization Tetanus Immunization: Unknown - Cardiac Hx Hypertension: Yes - Pulmonary Hx Respiratory Disorders: Yes Hx Bronchitis: Yes - Neurological Hx Neurological Disorder: Yes Hx Seizures: Yes - HEENT Hx HEENT Disorder: No - Renal Hx Renal Disorder: No - Endocrine/Metabolic Hx Endocrine Disorders: Yes Other/Comment: hypoglycemia - Hematological/Oncological Hx Blood Disorders: Yes Hx Anemia: Yes (iron deficiency) - Integumentary Other/Comment: dry skin both feet/ankles - Musculoskeletal/Rheumatological Hx Musculoskeletal Disorders: Yes Hx Falls: Yes - Gastrointestinal Hx Gastrointestinal Disorders: Yes Hx Gastroesophageal Reflux: Yes Hx Pancreatitis: Yes Other/Comment: colonoscopy 07/21/17: redundant colon and internal hemorrhoids - Genitourinary/Gynecological Hx Genitourinary Disorders: Yes Hx Urinary Tract Infection: Yes - Psychiatric Hx Psychophysiologic Disorder: Yes (H/O HEROINE ABUSE,SNORTED) Hx Substance Use: Yes (quit snorting heroine "3 months ago" pt stated) Other/Comment: quit snorting heroine "about 4 months ago" pt stated. Pt on [employer]riza program , drinks 1/2 pt liquor occasionally, smokes 10 cigs a day - Past Surgical History Past Surgical History: No Previous - Surgical History Hx Open Heart Surgery: Yes (AAA REPAIR) Other/Comment: aneurysm in his chest December 2014, pancreatic pseudocyst abcess drainage 11/14/16 - Anesthesia Hx Anesthesia: Yes Hx Anesthesia Reactions: No Hx Malignant Hyperthermia: No - Suicidal Assessment Feels Threatened In Home Enviroment: No Family/Social History Smoking Status: Heavy Smoker > 10 Cigarettes Daily Hx Alcohol Use: Yes Hx Substance Use: Yes (quit snorting heroine "3 months ago" pt stated) Substance used: heroin Hx Substance Use Treatment: Yes Allergies/Home Meds Allergies/Adverse Reactions: Allergies No Known Allergies Allergy (Verified 07/08/18 20:41) Home Medications: Home Meds Medication Instructions Recorded Confirmed Atorvastatin [Lipitor] 40 mg PO DAILY 02/13/18 07/08/18 Cholecalciferol (Vitamin D3) 400 unit PO DAILY 02/13/18 07/08/18 [Vitamin D3] Physical Exam Finger Stick Blood Glucose: 119 Medical Decision Making - RAD Interpretation Radiology Orders: 07/08/18 20:42 HEAD W/O (CODE STROKE) [CT] Stat CHEST ONE VIEW [RAD] Stat - Medication Orders Current Medication Orders: Sodium Chloride (Sodium Chloride 0.9%) 1,000 mls @ 100 mls/hr IV .Q10H CESAR Disposition/Present on Arrival - Present on Arrival History of DVT/PE: No History of Uncontrolled Diabetes: No Urinary Catheter: No History of Decub. Ulcer: No History Surgical Site Infection Following: None - Disposition
--- NOTE | 2018-07-08 20:58 | EDPD ---
HPI Stroke - General Time Seen by Provider: 07/08/18 20:42 Chief Complaint: Weakness/Neurological Deficit Historian: Patient - History of Present Illness Narrative History of Present Illness (Free Text): 07/08/18 20:39 Rasta Delgado is a 52 year old male, whose past medical history includes hypertension, hyperlipidemia, chronic pancreatitis, aortic dissection s/p repair, microcytic anemia, polysubstance abuse, and alcohol abuse, who presents to the Emergency department brought in by EMS for evaluation of possible stroke. Patient apparently woke up from sleep with slurred speech and right-sided weakness. EMS took the patient's blood sugar, noted to be 50, and was treated with D50 resuming normal speech. Patient states he still has some weakness to the right side. Patient reports he has been sleeping all day since last night. Onset of patient's symptoms are unknown. Patient denies any headache, chest pain, drug abuse, alcohol abuse, or any other complaints. Date:: 07/08/18 Time: 20:39 Onset:: Hours Timing: Currently Symptomatic Context: Home Exacerbated by: Nothing Relieved by: Nothing - Location Location: Speech Locate Right: Upper extremity, Lower extremity rTPA Inclusion/Exclusion - Refusal of Treatment Patient Refused Treatment: No - Inclusion Criteria for Altepase Patient is 18 years or Older: Yes The Clinical Diagnosis of Ischemic Stroke That is Causing a Potentially Disabling Neurological Deficit: No Time of Onset is Well Established to be Less Than 270 Minute Before Treatment Would Begin: No Risk/Benefit Discussed With Patient/Family Member Present: Yes - Exclusion Criteria for Altepase Uncontrolled Hypertension at Time of Treatment (Systolic BP above 185 or Diastolic BP above 110 mmHg): No Active Internal Bleeding: No Known Bleeding Diathesis Including but Not Limited to: Platelets Below 100,000/mm,PTT Above 40 sec After Heparin Use, Current Use of Oral Anitcoagulant With INR Greater Than 1.7 or PT Greater Than 15 secs: No Evidence of an Intracranial Hemorrhage: No Evidence of Major Acute Infarct With Signs Greater Than 1/3 MCA Territory: No Suspicion of Subarachnoid Hemorrhage on Pretreatment Evaluation Even if CT Head Negative For Hemorrhage: No - Warning to TPA With Conditions Following Conditions Weighed Against Anticipated Benefit: Yes Condition: Stroke Serevity Too Mild, Rapid Improvement Past Medical History - Provider Review Nursing Documentation Reviewed: Yes - Infectious Disease Hx of Infectious Diseases: None - Tetanus Immunization Tetanus Immunization: Unknown - Cardiac Hx Hypertension: Yes - Pulmonary Hx Respiratory Disorders: Yes Hx Bronchitis: Yes - Neurological Hx Neurological Disorder: Yes Hx Seizures: Yes - HEENT Hx HEENT Disorder: No - Renal Hx Renal Disorder: No - Endocrine/Metabolic Hx Endocrine Disorders: Yes Other/Comment: hypoglycemia - Hematological/Oncological Hx Blood Disorders: Yes Hx Anemia: Yes (iron deficiency) - Integumentary Other/Comment: dry skin both feet/ankles - Musculoskeletal/Rheumatological Hx Musculoskeletal Disorders: Yes Hx Falls: Yes - Gastrointestinal Hx Gastrointestinal Disorders: Yes Hx Gastroesophageal Reflux: Yes Hx Pancreatitis: Yes Other/Comment: colonoscopy 07/21/17: redundant colon and internal hemorrhoids - Genitourinary/Gynecological Hx Genitourinary Disorders: Yes Hx Urinary Tract Infection: Yes - Psychiatric Hx Psychophysiologic Disorder: Yes (H/O HEROINE ABUSE,SNORTED) Hx Substance Use: Yes (quit snorting heroine "3 months ago" pt stated) Other/Comment: quit snorting heroine "about 4 months ago" pt stated. 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 - Anesthesia Hx Anesthesia: Yes Hx Anesthesia Reactions: No Hx Malignant Hyperthermia: No - Suicidal Assessment Feels Threatened In Home Enviroment: No Family/Social History - Family/Social History Family History: Non-Contributory - DrAustin Review Nursing documentation reviewed.: Yes Allergies/Home Meds Allergies/Adverse Reactions: Allergies No Known Allergies Allergy (Verified 07/08/18 20:41) Home Medications: Home Meds Medication Instructions Recorded Confirmed Atorvastatin [Lipitor] 40 mg PO DAILY 02/13/18 07/08/18 Cholecalciferol (Vitamin D3) 400 unit PO DAILY 02/13/18 07/08/18 [Vitamin D3] Review of Systems - Physician Review All systems were reviewed & negative as marked: Yes - Review of Systems Constitutional: Normal. absent: Fevers Eyes: Normal ENT: Normal Respiratory: Normal. absent: SOB, Cough Cardiovascular: Normal. absent: Chest Pain Gastrointestinal: Normal. absent: Abdominal Pain, Diarrhea, Nausea, Vomiting Genitourinary Male: Normal. absent: Dysuria, Frequency, Hematuria, Urinary Output Changes Musculoskeletal: Normal. absent: Back Pain, Neck Pain Skin: Normal. absent: Rash Neurological: Focal Weakness (+right-sided weakness), Speech Changes (+slurred speech). absent: Headache, Dizziness Endocrine: Normal Hemo/Lymphatic: Normal Psychiatric: Normal ED Stroke Physical Exam Vital Signs Reviewed: Yes Temperature: Afebrile Blood Pressure: Hypertensive Pulse: Regular Respiratory Rate: Normal Appearance: Positive for: Non-Toxic Pain Distress: None Finger Stick Blood Glucose: 119 Medical Decision Making ED Course and Treatment: 07/08/18 20:39 Impression: 52 year old male brought in by EMS for slurred speech and right-sided weakness. Differential Diagnosis included but are not limited to: TIA vs. CVA Plan: -- CT Head w/o contrast -- EKG -- CXR -- Labs, blood type and screen, troponin, lipid panel, alcohol level -- IV fluids -- Aspirin -- Reassess and disposition Prior Visits: Notes and results from previous visits were reviewed. Progress Notes: 07/08/18 20:39 Pt seen on arrival to Emergency department. Code Stroke called. Pt taken CT scan. 07/08/18 20:[address] Matos, neurologist software applications designer, who is aware and agrees with plan. Given the uncertainty of the onset of the patient's symptoms and clinical presentation, pt is not a candidate for tPA. Recommends CTA Head/Neck. 07/08/18 21:10 CT Head reviewed, shows: No acute intraparenchymal hemorrhage. No mass lesion. No CT evidence for acute territorial infarct. No midline shift or extra-axial collections. Generalized cerebral atrophy comments demonstrate by diffuse sulcal and ventricular prominence. VENTRICLES: No hydrocephalus. ORBITS: The orbits are unremarkable. SINUSES AND MASTOIDS: Complete opacification of the left maxillary sinus and extensive opacification of the left side of the ethmoid air cells.The paranasal sinuses and mastoid air cells are otherwise clear. BONES: No fracture. SOFT TISSUES: Unremarkable. IMPRESSION: No acute intracranial abnormality. Findings verbally reported to Dr. Guerra at 9:02 PM. Electronically signed on Jul 08, 2018 9:10:14 PM EST by: Ilsa Vera M.D., Certified by ABR, Diagnostic Radiology 07/08/18 21:12 Reviewed EKG, NSR at [address] bpm[address] Non-specific ST/T wave changes. 07/08/18 21:49 Chest X-ray reviewed, shows no acute processes. 07/08/18 22:30 CTA Head/Neck: VASCULATURE: UPPER CHEST: Stab;e dissection of the aortic arch, with involvement of the origin of the left subclavian artery. NECK: COMMON CAROTID ARTERIES No significant stenosis. No dissection or occlusion. EXTERNAL CAROTID ARTERIES Patent. NECK: INTERNAL CAROTID ARTERIES No stenosis by NASCET criteria. No dissection or occlusion. VERTEBRAL ARTERIES No significant stenosis. No dissection or occlusion. HEAD: ANTERIOR CEREBRAL ARTERIES No significant stenosis. No occlusion. No aneurysm. MIDDLE CEREBRAL ARTERIES No significant stenosis. No occlusion. No aneurysm. POSTERIOR CEREBRAL ARTERIES No significant stenosis. No occlusion. No aneurysm. BASILAR ARTERY No significant stenosis. No occlusion. No aneurysm. OTHER: SOFT TISSUES No acute finding. BONES No acute osseous abnormality. IMPRESSION: Stable dissection of the aortic arch, with involvement of the origin of the left subclavian artery. Otherwise, unremarkable CTA of the head and neck. Electronically signed on Jul 08, 2018 10:23:36 PM EST by: Ilsa Vera M.D., Certified by ABR, Diagnostic Radiology 07/08/18 23:32 Case discussed with director medical science software applications designer, who is aware and agrees with plan. 07/08/18 23:[address] Vasquez, who is aware and agrees with plan. Accepts pt in to hospitalist. Pt will go to Telemetry observation for CVA. - Critical Care Critical Care Minutes: 30 minutes - Lab Interpretations I have reviewed the lab results: Yes - RAD Interpretation Radiology Orders: 07/08/18 20:42 HEAD W/O (CODE STROKE) [CT] Stat CHEST ONE VIEW [RAD] Stat Corporate Planner: ED Physician, Radiologist - EKG Interpretation Interpreted by ED Physician: Yes Type: 12 lead EKG - Medication Orders Current Medication Orders: Sodium Chloride (Sodium Chloride 0.9%) 1,000 mls @ 100 mls/hr IV .Q10H CESAR - Scribe Statement The provider has reviewed the documentation as recorded by the Scribcatherine Gamboa Provider Scribe Attestation: All medical record entries made by the Scribe were at my direction and personally dictated by me. I have reviewed the chart and agree that the record accurately reflects my personal performance of the history, physical exam, medical decision making, and the department course for this patient. I have also personally directed, reviewed, and agree with the discharge instructions and disposition. NIHSS Scale ([place]) Time Performed: 20:39 - How Severe is the Stoke Baseline Level of Consciousness: 0=Alert LOC to Questions: 0=Both comments correct LOC to commands: 0=Obeys both correctly Best Gaze: 0=Normal Visual: 0=No visual loss Facial: 0=Normal Motor Arm - Left: 0=No drift Motor Arm - Right: 2=Falls before 10 sec Motor Leg - Left: 0=No drift Motor Leg - Right: 1=Drift before 5 sec Limb Ataxia: 0=Absent Sensory: 0=Normal Best Language: 0=No aphasia Dysarthia: 0=Normal articulation Extinction & Inattention (Neglect): 0=Normal, no object Score: 3 Risk Level: Minor Stroke Risk Disposition/Present on Arrival - Present on Arrival Any Indicators Present on Arrival: No History of DVT/PE: No History of Uncontrolled Diabetes: No Urinary Catheter: No History of Decub. Ulcer: No History Surgical Site Infection Following: None - Disposition Have Diagnosis and Disposition been Completed?: Yes Diagnosis: CVA (cerebral vascular accident) Disposition: HOSPITALIZED Disposition Time: 23:42 Patient Problems: Current Active Problems Problem Status Onset CVA (cerebral vascular accident) Acute Condition: STABLE Forms: [employer] ([place]izen [place])
[2018-07-08] MEDS: Sodium Chloride 0.9% 1,000 ML IV SCH (21:08)
[2018-07-08 21:19] LABS: BASO # 0.01 K/mm3 (0.0-2.0); BASO % 0.1 % (0.0-3.0); GRAN # 5.28 (1.4-6.5); GRAN % 75.7 % (50.0-68.0); HEMOGLOBIN 14.2 g/dL (14.0-18.0); LYMPH # 1.4 (1.2-3.4); LYMPH % 19.8 % (22.0-35.0); MEAN CELL VOLUME 77.7 fl (80.0-105.0); MEAN CORPUSCULAR HEMOGLOBIN 27.6 pg (25.0-35.0); MEAN CORPUSCULAR HGB CONC 35.5 g/dl (31.0-37.0); MEAN PLATELET VOLUME 9.1 fl (7.0-11.0); MONO # 0.3 (0.1-0.6); MONO % 4.4 % (1.0-6.0); RBC 5.15 10^6/uL (3.5-6.1); RED CELL DISTRIBUTION WIDTH 15.5 % (11.5-14.5)
[2018-07-08] MEDS ORDERED: Iohexol 350 MG/100 ML VIAL ONE (21:22)
[2018-07-08 21:27] LABS: INR 0.97; PARTIAL THROMBOPLASTIN TIME 26.1 Seconds (25.1-36.5)
[2018-07-08 21:28] LABS: ALB/GLOB RATIO 1.3 (1.1-1.8); ALBUMIN 4.4 g/dL (3.0-4.8); ALT/SGPT 136 U/L (7-56); AST/SGOT 223 U/L (17-59); BLOOD UREA NITROGEN 21 mg/dL (7-21); CALCIUM 9.1 mg/dL (8.4-10.5); GFR NON-AFRICAN AMERICAN > 60
[2018-07-08 21:38] LABS: TROPONIN I 0.02 ng/mL
[2018-07-08 21:39] LABS: LDL CHOLESTEROL 61 mg/dL (0-129)
[2018-07-08 22:27] LABS: HDL CHOLESTEROL 130 mg/dL (29-60)
[2018-07-09] MEDS ORDERED: Dextrose 50% SYRINGE Inj (50 ml) ONE (01:11)
--- NOTE | 2018-07-09 01:14 | CP.PCM.HP ---
<Lynda Sinclair - Last Filed: 07/09/18 06:06> History of Present Illness - History of Present Illness History of Present Illness: Lynda Sinclair, PGY1 H&P for Hospitalist Service This is a 52 year old male with PMH of polysubstance abuse, history of alcohol withdrawel, HTN, HLD, chronic pancreatitis and aortic dissection s/p repair in 2014 presenting to the ED via EMS for slurred speech and right sided weakness that began today afternoon. Patient states that he woke from a nap in the after noon in noticed her was slurring his words and could not move the right side of his body. EMS noted patient to have blood sugar of 50 and given D50 with resolution of slurred speech symptoms. He admits to similar symptoms a few months ago that resolved spontaneously. He gets 170mg of methadone [facility] and last dose was Monday. Patient says he was unable to go today due to feeling unwell. His last alcohol drink was last night when he had one pint. He admits to nausea and lower abdominal pain. He says his slurred speech and right sided weakness have resolved. He currently denies CP, SOB, fevers, nausea, vomiting, back pain, urinary complaints, numbness, tingling, swelling, recent trauma, travel, sickness and lifestyle changes. 12 point ROS noted here, otherwise unremarkable. PMD: Brennen Galvez Jr., MD PMH: polysubstance abuse, history of alcohol withdrawel, HTN, HLD, chronic p ancreatitis and aortic dissection SH: smokes 10 ciggs/per day for the last 23 years, drinks 1 pint per day for the last 15 years Sx: aortic dissection s/p repair in 2014 FH: denies All: NKDA Meds: patient does not remember. Per latest discharge summary patient is on the following: ASA 81mg, lipitor 40mg, vitamin D 400 units daily, ferrous sulfate, folic acid, metoprolol XL 25mg, multivitamin, and thiamine. [place] [facility] [place] Present on Admission - Present on Admission Any Indicators Present on Admission: No Past Patient History - Infectious Disease Hx of Infectious Diseases: None - Tetanus Immunizations Tetanus Immunization: Unknown - Past Medical History & Family History Past Medical History?: Yes - Past Social History Smoking Status: Heavy Smoker > 10 Cigarettes Daily - CARDIAC Hx Hypertension: Yes - PULMONARY Hx Respiratory Disorders: Yes Hx Bronchitis: Yes - NEUROLOGICAL Hx Neurological Disorder: Yes Hx Seizures: Yes - HEENT Hx HEENT Problems: No - RENAL Hx Chronic Kidney Disease: No - ENDOCRINE/METABOLIC Hx Endocrine Disorders: Yes Other/Comment: hypoglycemia - HEMATOLOGICAL/ONCOLOGICAL Hx Blood Disorders: Yes Hx Anemia: Yes (iron deficiency) - INTEGUMENTARY Other/Comment: dry skin both feet/ankles - MUSCULOSKELETAL/RHEUMATOLOGICAL Hx Musculoskeletal Disorders: Yes Hx Falls: Yes - GASTROINTESTINAL Hx Gastrointestinal Disorders: Yes Hx Gastroesophageal Reflux: Yes Hx Pancreatitis: Yes Other/Comment: colonoscopy 07/21/17: redundant colon and internal hemorrhoids - GENITOURINARY/GYNECOLOGICAL Hx Genitourinary Disorders: Yes Hx Urinary Tract Infection: Yes - PSYCHIATRIC Hx Psychophysiologic Disorder: Yes (H/O HEROINE ABUSE,SNORTED) Hx Substance Use: Yes (quit snorting heroine "3 months ago" pt stated) Other/Comment: quit snorting heroine "about 4 months ago" pt stated. 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 absent: Accessory Muscle Use, Respiratory Distress - Cardiovascular Exam Cardiovascular Exam: REGULAR RHYTHM, +S1, +S2 - GI/Abdominal Exam GI & Abdominal Exam: Normal Bowel Sounds, Soft. absent: Firm, Guarding - Extremities Exam Extremities exam: Positive for: normal inspection, pedal pulses present. Negative for: calf tenderness - Neurological Exam Neurological exam: Alert, CN II-XII Intact, Oriented x3 - Skin Skin Exam: Normal Color, Warm Results - Vital Signs Recent Vital Signs: Last Vital Signs Temp 98.6 F 07/08/18 21:06 Pulse 89 07/09/18 00:51 Resp 18 07/09/18 00:51 BP 139/84 07/09/18 00:51 Pulse Ox 98 07/09/18 00:51 - Labs Result Diagrams: 07/08/18 21:01 07/08/18 21:01 Labs: Laboratory Results - last 24 hr 07/08/18 07/08/18 07/08/18 21:01 21:01 21:01 WBC 7.0 RBC 5.15 Hgb 14.2 D Hct 40.0 L MCV 77.7 L MCH 27.6 MCHC 35.5 RDW 15.5 H Plt Count 95 L MPV 9.1 Gran % 75.7 H Lymph % (Auto) 19.8 L [place] % (Auto) 4.4 Eos % (Auto) 0.0 L Baso % (Auto) 0.1 Gran # 5.28 Lymph # (Auto) 1.4 [place] # (Auto) 0.3 Eos # (Auto) 0.0 Baso # (Auto) 0.01 PT 11.0 INR 0.97 APTT 26.1 Sodium 141 Potassium 4.7 Chloride 104 Carbon Dioxide 16 L Anion Gap 26 H BUN 21 Creatinine 0.9 Est GFR ( Amer) > 60 Est GFR (Non-Af Amer) > 60 Random Glucose 101 Calcium 9.1 Total Bilirubin 0.6 AST 223 H D ALT 136 H Alkaline Phosphatase 104 Troponin I 0.02 D Total Protein 8.0 Albumin 4.4 Globulin 3.6 Albumin/Globulin Ratio 1.3 Triglycerides 94 Cholesterol 211 H LDL Cholesterol Direct 61 HDL Cholesterol 130 H Lipase Alcohol, Quantitative 07/08/18 07/08/18 21:01 21:01 WBC RBC Hgb Hct MCV MCH MCHC RDW Plt Count MPV Gran % Lymph % (Auto) [place] % (Auto) Eos % (Auto) Baso % (Auto) Gran # Lymph # (Auto) [place] # (Auto) Eos # (Auto) Baso # (Auto) PT INR APTT Sodium Potassium Chloride Carbon Dioxide Anion Gap BUN Creatinine Est GFR ( Amer) Est GFR (Non-Af Amer) Random Glucose Calcium Total Bilirubin AST ALT Alkaline Phosphatase Troponin I Total Protein Albumin Globulin Albumin/Globulin Ratio Triglycerides Cholesterol LDL Cholesterol Direct HDL Cholesterol Lipase 590 H Alcohol, Quantitative 228 H Assessment & Plan - Assessment and Plan (Free Text) Assessment: This is a 52 year old male with PMH of polysubstance abuse, history of alcohol w ithdrawel, HTN, HLD, chronic pancreatitis and aortic dissection s/p repair in 2014 presenting to the ED via EMS for slurred speech and right sided 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 Plan: Right sided weakness, slurred speech -concern for CVA vs TIA -CT head showed no acute intracranial abnormality. F/u official read -CTA head/neck showed stable dissection of the aortic arch with involvement of the origin of the left subclavian artery; otherwise unremarkable. F/u official read -CXR shows no acute disease. F/u official read -EKG showed NSR at [address]/T wave changes -UDS pending -aspiration precautions, fall precautions -swallow eval -PT eval -Echo with bubble study pending -Brain MRI pending -Neurologist on consult, Dr. Matos Hypoglycemia -noted to have blood sugar of 50 while in EMS as well as blood sugar of 36 while in ED -monitor glucose q4H -hypoglycemia protocol -heart healthy diet Hx of alcohol abuse -alcohol level of 228 on admission -CIWA protocol -ativan prn for alcohol withdrawal -seizure precautions, vital signs, neurochecks -elevated LFTs, likely from chronic alcohol use Hx of HTN -currently controlled -unclear if patient takes metoprolol at home Hx of HLD -continue ASA, lipitor Hx of chronic pancreatitis -lipase of 590, at baseline -consider CTAP if RUQ abdominal pain or back pain Hx of smoking -nicotine patch PPX with pepcid and SCD Patient seen and discussed with attending, Dr. Vasquez <Gaby Vasquez - Last Filed: 07/09/18 06:13> Results - Vital Signs Recent Vital Signs: Last Vital Signs Temp 98.5 F 07/09/18 01:15 Pulse 85 07/09/18 01:36 Resp 20 07/09/18 01:36 BP 139/84 07/09/18 01:15 Pulse Ox 98 07/09/18 01:15 - Labs Result Diagrams: 07/08/18 21:01 07/08/18 21:01 Labs: Laboratory Results - last 24 hr 07/08/18 07/08/18 07/08/18 21:01 21:01 21:01 WBC 7.0 RBC 5.15 Hgb 14.2 D Hct 40.0 L MCV 77.7 L MCH 27.6 MCHC 35.5 RDW 15.5 H Plt Count 95 L MPV 9.1 Gran % 75.7 H Lymph % (Auto) 19.8 L [place] % (Auto) 4.4 Eos % (Auto) 0.0 L Baso % (Auto) 0.1 Gran # 5.28 Lymph # (Auto) 1.4 [place] # (Auto) 0.3 Eos # (Auto) 0.0 Baso # (Auto) 0.01 PT 11.0 INR 0.97 APTT 26.1 Sodium 141 Potassium 4.7 Chloride 104 Carbon Dioxide 16 L Anion Gap 26 H BUN 21 Creatinine 0.9 Est GFR ( Amer) > 60 Est GFR (Non-Af Amer) > 60 POC Glucose (mg/dL) Random Glucose 101 Calcium 9.1 Total Bilirubin 0.6 AST 223 H D ALT 136 H Alkaline Phosphatase 104 Troponin I 0.02 D Total Protein 8.0 Albumin 4.4 Globulin 3.6 Albumin/Globulin Ratio 1.3 Triglycerides 94 Cholesterol 211 H LDL Cholesterol Direct 61 HDL Cholesterol 130 H Lipase Urine Opiates Screen Urine Methadone Screen Ur Barbiturates Screen Ur Phencyclidine Scrn Ur Amphetamines Screen U Benzodiazepines Scrn U Oth Cocaine Metabols U Cannabinoids Screen Alcohol, Quantitative 07/08/18 07/08/18 07/09/18 21:01 21:01 01:07 WBC RBC Hgb Hct MCV MCH MCHC RDW Plt Count MPV Gran % Lymph % (Auto) [place] % (Auto) Eos % (Auto) Baso % (Auto) Gran # Lymph # (Auto) [place] # (Auto) Eos # (Auto) Baso # (Auto) PT INR APTT Sodium Potassium Chloride Carbon Dioxide Anion Gap BUN Creatinine Est GFR ( Amer) Est GFR (Non-Af Amer) POC Glucose (mg/dL) 36 L* Random Glucose Calcium Total Bilirubin AST ALT Alkaline Phosphatase Troponin I Total Protein Albumin Globulin Albumin/Globulin Ratio Triglycerides Cholesterol LDL Cholesterol Direct HDL Cholesterol Lipase 590 H Urine Opiates Screen Urine Methadone Screen Ur Barbiturates Screen Ur Phencyclidine Scrn Ur Amphetamines Screen U Benzodiazepines Scrn U Oth Cocaine Metabols U Cannabinoids Screen Alcohol, Quantitative 228 H 07/09/18 02:00 WBC RBC Hgb Hct MCV MCH MCHC RDW Plt Count MPV Gran % Lymph % (Auto) [place] % (Auto) Eos % (Auto) Baso % (Auto) Gran # Lymph # (Auto) [place] # (Auto) Eos # (Auto) Baso # (Auto) PT INR APTT Sodium Potassium Chloride Carbon Dioxide Anion Gap BUN Creatinine Est GFR ( Amer) Est GFR (Non-Af Amer) POC Glucose (mg/dL) Random Glucose Calcium Total Bilirubin AST ALT Alkaline Phosphatase Troponin I Total Protein Albumin Globulin Albumin/Globulin Ratio Triglycerides Cholesterol LDL Cholesterol Direct HDL Cholesterol Lipase Urine Opiates Screen Negative Urine Methadone Screen Positive H Ur Barbiturates Screen Negative Ur Phencyclidine Scrn Negative Ur Amphetamines Screen Negative U Benzodiazepines Scrn Negative U Oth Cocaine Metabols Negative U Cannabinoids Screen Negative Alcohol, Quantitative Attending/Attestation - Attestation I have personally seen and examined this patient.: Yes I have fully participated in the care of the patient.: Yes I have reviewed all pertinent clinical information: Yes
[2018-07-09 01:49] VITALS: BMI 21.7
[2018-07-09] MEDS ORDERED: Dextrose 50% SYRINGE Inj (50 ml) IV PRN (02:21)
[2018-07-09 02:53] LABS: OPIATES, UR NEGATIVE (NEGATIVE); PHENCYCLIDINE, UR NEGATIVE (NEGATIVE)
[2018-07-09 02:57] LABS: BARBITURATES, UR NEGATIVE (NEGATIVE); BENZODIAZEPINES, UR NEGATIVE (NEGATIVE)
[2018-07-09 06:23] LABS: BASO # 0.02 K/mm3 (0.0-2.0); BASO % 0.2 % (0.0-3.0); GRAN # 6.37 (1.4-6.5); GRAN % 73.8 % (50.0-68.0); HEMOGLOBIN 12.3 g/dL (14.0-18.0); LYMPH # 1.3 (1.2-3.4); LYMPH % 15.2 % (22.0-35.0); MEAN CELL VOLUME 76.3 fl (80.0-105.0); MEAN CORPUSCULAR HGB CONC 35.4 g/dl (31.0-37.0); MEAN PLATELET VOLUME 9.5 fl (7.0-11.0); MONO # 0.9 (0.1-0.6); MONO % 10.8 % (1.0-6.0); RBC 4.55 10^6/uL (3.5-6.1); RED CELL DISTRIBUTION WIDTH 15.3 % (11.5-14.5); WHITE BLOOD COUNT 8.6 10^3/uL (4.5-11.0)
[2018-07-09 07:11] LABS: ALB/GLOB RATIO 1.2 (1.1-1.8); ALBUMIN 3.7 g/dL (3.0-4.8); ALT/SGPT 113 U/L (7-56); AST/SGOT 168 U/L (17-59); BLOOD UREA NITROGEN 18 mg/dL (7-21); CALCIUM 8.7 mg/dL (8.4-10.5); GFR NON-AFRICAN AMERICAN > 60
[2018-07-09] MEDS: Albuterol-Ipratrop 3 mg / 0.5 (3 ml) UD IH SCH ×3 (07:41→15:46)
[2018-07-09] MEDS: Metoprolol Succinate 25 mg XL Tab PO SCH (09:04)
--- NOTE | 2018-07-09 10:00 | RAD ---
Date of service: 07/08/2018 PROCEDURE: CHEST RADIOGRAPH, 1 VIEW HISTORY: Code Stroke COMPARISON: 02/13/2018 FINDINGS: LUNGS: Clear. PLEURA: No pneumothorax or pleural fluid seen. CARDIOVASCULAR: There is aortic calcification and tortuosity the heart is normal in size OSSEOUS STRUCTURES: Sternal wires VISUALIZED UPPER ABDOMEN: Normal. OTHER FINDINGS: None. IMPRESSION: No active disease.
--- NOTE | 2018-07-09 10:08 | CP.PCM.CON ---
<Masood Daniels - Last Filed: 07/09/18 14:11> History of Present Illness - History of Present Illness History of Present Illness: Neurology Consult Note for Dr. Barr Reason for Consultation: Possible CVA/TIA HPI: Patient is a 52 yo M with PMH of polysubstance abuse, history of alcohol withdrawel, HTN, HLD, chronic pancreatitis and aortic dissection s/p repair in 2014 presents to ED for slurred speech and right-sided weakness. Paitent states that he was napping yesterday afternoon, when he noticed his symptoms. He states that he could not move the right sided of his body. Patient denies any facial droop. On arrival of EMS, patient was noted to have blood glucose of 50. He was given 1 amp of D50, which resulted in resolution of his slurred speech. Patient states that he had a possible CVA in the past. At the time of examination, patient states that slurred speech and weakness had resolved. Patient denies CP, SOB, fevers, nausea, vomiting, back pain, urinary complaints, numbness, tingling, swelling, recent trauma, travel, sickness and lifestyle changes. PMH: polysubstance abuse, history of alcohol withdrawel, HTN, HLD, chronic pancreatitis and aortic dissection Surg: aortic dissection s/p repair in 2015 All: NKDA SH: smokes 10 ciggs/per day for the last 23 years, drinks 1 pint per day for the last 15 years FH: denies Review of Systems - Review of Systems All systems: reviewed and no additional remarkable complaints except (12 point ROS reviewed and is negative other than what is stated in HPI.) Past Patient History - Infectious Disease Hx of Infectious Diseases: None - Tetanus Immunizations Tetanus Immunization: Unknown - Past Medical History & Family History Past Medical History?: Yes - Past Social History Smoking Status: Heavy Smoker > 10 Cigarettes Daily - CARDIAC Hx Hypertension: Yes - PULMONARY Hx Respiratory Disorders: Yes Hx Bronchitis: Yes - NEUROLOGICAL Hx Neurological Disorder: Yes Hx Seizures: Yes - HEENT Hx HEENT Problems: No - RENAL Hx Chronic Kidney Disease: No - ENDOCRINE/METABOLIC Hx Endocrine Disorders: Yes Other/Comment: hypoglycemia - HEMATOLOGICAL/ONCOLOGICAL Hx Blood Disorders: Yes Hx Anemia: Yes (iron deficiency) - INTEGUMENTARY Other/Comment: dry skin both feet/ankles - MUSCULOSKELETAL/RHEUMATOLOGICAL Hx Musculoskeletal Disorders: Yes Hx Falls: Yes - GASTROINTESTINAL Hx Gastrointestinal Disorders: Yes Hx Gastroesophageal Reflux: Yes Hx Pancreatitis: Yes Other/Comment: colonoscopy 07/21/17: redundant colon and internal hemorrhoids - GENITOURINARY/GYNECOLOGICAL Hx Genitourinary Disorders: Yes Hx Urinary Tract Infection: Yes - PSYCHIATRIC Hx Psychophysiologic Disorder: Yes (H/O HEROINE ABUSE,SNORTED) Hx Substance Use: Yes (quit snorting heroine "3 months ago" pt stated) Other/Comment: quit snorting heroine "about 4 months ago" pt stated. Pt on [employer] program , drinks 1/2 pt liquor occasionally, smokes 10 cigs a day - SURGICAL HISTORY Hx Open Heart Surgery: Yes (AAA REPAIR) Other/Comment: aneurysm in his chest December 2014, pancreatic pseudocyst abcess drainage 11/14/16 - ANESTHESIA Hx Anesthesia: Yes Hx Anesthesia Reactions: No Hx Malignant Hyperthermia: No Meds Allergies/Adverse Reactions: Allergies Allergy/AdvReac Type Severity Reaction Status Date / Time No Known Allergies Allergy Verified 07/08/18 20:41 - Medications Medications: Current Medications Albuterol/Ipratropium (Duoneb 3 Mg/0.5 Mg (3 Ml) Ud) 3 ml IH QIDRESP [facility] Stop: 07/09/18 15:31 Last Admin: 07/09/18 07:41 Dose: 3 ml Aspirin (Aspirin Chewable) 81 mg PO DAILY [facility] Last Admin: 07/09/18 09:04 Dose: 81 mg Atorvastatin Calcium (Lipitor) 40 mg PO DAILY [facility] Last Admin: 07/09/18 09:04 Dose: 40 mg Dextrose (Dextrose 50% Inj) 0 ml IV STAT PRN; Protocol PRN Reason: Hypoglycemia Protocol Famotidine (Pepcid) 40 mg PO HS [facility] Sodium Chloride (Sodium Chloride 0.9%) 1,000 mls @ 100 mls/hr IV .Q10H [facility] Last Admin: 07/08/18 21:08 Dose: 100 mls/hr Dextrose (Dextrose 5% In Water 1000 Ml) 1,000 mls @ 0 mls/hr IV .Q0M PRN; Protocol PRN Reason: Hypoglycemia Protocol Ibuprofen (Motrin Tab) 400 mg PO Q6H PRN PRN Reason: Pain, severe (8-10) Last Admin: 07/09/18 05:15 Dose: 400 mg Lorazepam (Ativan) 1 mg IVP Q6H PRN; Protocol PRN Reason: Symptoms of alcohol withdrawl Methadone HCl (Methadone) 170 mg PO Q24H [facility] Metoprolol Succinate (Toprol Xl) 25 mg PO BRK [facility] Last Admin: 07/09/18 09:04 Dose: 25 mg Nicotine (Nicoderm Cq) 1 patch TD DAILY [facility] Last Admin: 07/09/18 09:04 Dose: 1 patch Ondansetron HCl (Zofran Inj) 4 mg IVP Q4H PRN PRN Reason: Nausea/Vomiting Last Admin: 07/09/18 09:26 Dose: 4 mg Vitamin D (Vitamin D 400 Intl Units Tab) 400 intlu PO DAILY [facility] Physical Exam - Constitutional Appears: Other (diaphoretic) - Head Exam Head Exam: NORMAL INSPECTION - Eye Exam Eye Exam: Normal appearance - ENT Exam ENT Exam: Mucous Membranes Moist, Normal Exam - Neck Exam Neck exam: Positive for: Normal Inspection - Respiratory Exam Respiratory Exam: Clear to Auscultation Bilateral, NORMAL BREATHING PATTERN - Cardiovascular Exam Cardiovascular Exam: REGULAR RHYTHM - GI/Abdominal Exam GI & Abdominal Exam: Normal Bowel Sounds, Soft - Extremities Exam Extremities exam: Positive for: normal inspection - Back Exam Back exam: NORMAL INSPECTION - Neurological Exam Neurological exam: Alert, CN II-XII Intact, Oriented x3 Additional comments: Strength: RUE and LUE 5/5 RLE 4/5, LLE 5/5 Sensation intact grossly DTR intact throughout No facial droop noted + tremors - Psychiatric Exam Psychiatric exam: Normal Affect - Skin Skin Exam: Diaphoretic, Normal Color Results - Vital Signs Recent Vital Signs: Last Vital Signs Temp 98.7 F 07/09/18 06:00 Pulse 78 07/09/18 09:04 Resp 20 07/09/18 06:00 BP 151/92 H 07/09/18 09:04 Pulse Ox 97 07/09/18 06:00 - Labs Result Diagrams: 07/09/18 05:40 07/09/18 05:40 Labs: Laboratory Results - last 24 hr 07/08/18 07/08/18 07/08/18 21:01 21:01 21:01 WBC 7.0 RBC 5.15 Hgb 14.2 D Hct 40.0 L MCV 77.7 L MCH 27.6 MCHC 35.5 RDW 15.5 H Plt Count 95 L MPV 9.1 Gran % 75.7 H Lymph % (Auto) 19.8 L [place] % (Auto) 4.4 Eos % (Auto) 0.0 L Baso % (Auto) 0.1 Gran # 5.28 Lymph # (Auto) 1.4 [place] # (Auto) 0.3 Eos # (Auto) 0.0 Baso # (Auto) 0.01 PT 11.0 INR 0.97 APTT 26.1 Sodium 141 Potassium 4.7 Chloride 104 Carbon Dioxide 16 L Anion Gap 26 H BUN 21 Creatinine 0.9 Est GFR ( Amer) > 60 Est GFR (Non-Af Amer) > 60 POC Glucose (mg/dL) Random Glucose 101 Calcium 9.1 Phosphorus Magnesium Total Bilirubin 0.6 AST 223 H D ALT 136 H Alkaline Phosphatase 104 Troponin I 0.02 D Total Protein 8.0 Albumin 4.4 Globulin 3.6 Albumin/Globulin Ratio 1.3 Triglycerides 94 Cholesterol 211 H LDL Cholesterol Direct 61 HDL Cholesterol 130 H Lipase Urine Opiates Screen Urine Methadone Screen Ur Barbiturates Screen Ur Phencyclidine Scrn Ur Amphetamines Screen U Benzodiazepines Scrn U Oth Cocaine Metabols U Cannabinoids Screen Alcohol, Quantitative Blood Type Antibody Screen BBK History Checked 07/08/18 07/08/18 07/09/18 21:01 21:01 01:07 WBC RBC Hgb Hct MCV MCH MCHC RDW Plt Count MPV Gran % Lymph % (Auto) [place] % (Auto) Eos % (Auto) Baso % (Auto) Gran # Lymph # (Auto) [place] # (Auto) Eos # (Auto) Baso # (Auto) PT INR APTT Sodium Potassium Chloride Carbon Dioxide Anion Gap BUN Creatinine Est GFR ( Amer) Est GFR (Non-Af Amer) POC Glucose (mg/dL) 36 L* Random Glucose Calcium Phosphorus Magnesium Total Bilirubin AST ALT Alkaline Phosphatase Troponin I Total Protein Albumin Globulin Albumin/Globulin Ratio Triglycerides Cholesterol LDL Cholesterol Direct HDL Cholesterol Lipase 590 H Urine Opiates Screen Urine Methadone Screen Ur Barbiturates Screen Ur Phencyclidine Scrn Ur Amphetamines Screen U Benzodiazepines Scrn U Oth Cocaine Metabols U Cannabinoids Screen Alcohol, Quantitative 228 H Blood Type Antibody Screen BBK History Checked 07/09/18 07/09/18 07/09/18 01:21 02:00 04:35 WBC RBC Hgb Hct MCV MCH MCHC RDW Plt Count MPV Gran % Lymph % (Auto) [place] % (Auto) Eos % (Auto) Baso % (Auto) Gran # Lymph # (Auto) [place] # (Auto) Eos # (Auto) Baso # (Auto) PT INR APTT Sodium Potassium Chloride Carbon Dioxide Anion Gap BUN Creatinine Est GFR ( Amer) Est GFR (Non-Af Amer) POC Glucose (mg/dL) 223 H 117 H Random Glucose Calcium Phosphorus Magnesium Total Bilirubin AST ALT Alkaline Phosphatase Troponin I Total Protein Albumin Globulin Albumin/Globulin Ratio Triglycerides Cholesterol LDL Cholesterol Direct HDL Cholesterol Lipase Urine Opiates Screen Negative Urine Methadone Screen Positive H Ur Barbiturates Screen Negative Ur Phencyclidine Scrn Negative Ur Amphetamines Screen Negative U Benzodiazepines Scrn Negative U Oth Cocaine Metabols Negative U Cannabinoids Screen Negative Alcohol, Quantitative Blood Type Antibody Screen BBK History Checked 07/09/18 07/09/18 07/09/18 05:40 05:40 05:40 WBC 8.6 D RBC 4.55 Hgb 12.3 L Hct 34.7 L MCV 76.3 L MCH 27.0 MCHC 35.4 RDW 15.3 H Plt Count 80 L MPV 9.5 Gran % 73.8 H Lymph % (Auto) 15.2 L [place] % (Auto) 10.8 H Eos % (Auto) 0.0 L Baso % (Auto) 0.2 Gran # 6.37 Lymph # (Auto) 1.3 [place] # (Auto) 0.9 H Eos # (Auto) 0.0 Baso # (Auto) 0.02 PT INR APTT Sodium 138 Potassium 4.5 Chloride 104 Carbon Dioxide 23 Anion Gap 16 BUN 18 Creatinine 0.7 L Est GFR ( Amer) > 60 Est GFR (Non-Af Amer) > 60 POC Glucose (mg/dL) Random Glucose 99 Calcium 8.7 Phosphorus 2.7 Magnesium 2.0 Total Bilirubin 0.6 AST 168 H D ALT 113 H Alkaline Phosphatase 98 Troponin I Total Protein 6.8 Albumin 3.7 Globulin 3.1 Albumin/Globulin Ratio 1.2 Triglycerides Cholesterol LDL Cholesterol Direct HDL Cholesterol Lipase Urine Opiates Screen Urine Methadone Screen Ur Barbiturates Screen Ur Phencyclidine Scrn Ur Amphetamines Screen U Benzodiazepines Scrn U Oth Cocaine Metabols U Cannabinoids Screen Alcohol, Quantitative Blood Type A POSITIVE Antibody Screen Negative BBK History Checked Patient has bt 12/03/18 08:45 WBC RBC Hgb Hct MCV MCH MCHC RDW Plt Count MPV Gran % Lymph % (Auto) [place] % (Auto) Eos % (Auto) Baso % (Auto) Gran # Lymph # (Auto) [place] # (Auto) Eos # (Auto) Baso # (Auto) PT INR APTT Sodium Potassium Chloride Carbon Dioxide Anion Gap BUN Creatinine Est GFR ( Amer) Est GFR (Non-Af Amer) POC Glucose (mg/dL) 92 Random Glucose Calcium Phosphorus Magnesium Total Bilirubin AST ALT Alkaline Phosphatase Troponin I Total Protein Albumin Globulin Albumin/Globulin Ratio Triglycerides Cholesterol LDL Cholesterol Direct HDL Cholesterol Lipase Urine Opiates Screen Urine Methadone Screen Ur Barbiturates Screen Ur Phencyclidine Scrn Ur Amphetamines Screen U Benzodiazepines Scrn U Oth Cocaine Metabols U Cannabinoids Screen Alcohol, Quantitative Blood Type Antibody Screen BBK History Checked Assessment & Plan - Assessment and Plan (Free Text) Assessment: 52 yo M with PMH of polysubstance abuse, history of alcohol withdrawal, HTN, HLD, chronic pancreatitis and aortic dissection s/p repair in 2014 presented to [facility] for slurred speech and right sided weakness. Patient will be evaluated for possible CVA/TIA. Patient's symptoms likely due to EtOH abuse given his history and elevated EtOH level and LFT's. Patient also on methadone due to history of opioid abuse. Plan: - CT head negative - CTA head/neck showed stable dissection of aortic arch - MRI Brain negative - Echo with bubble study pending - Recommend d/c statin due to elevated LFT's and LDL within target range <70 - Recommend EtOH gradual cessation, rehab, AA - Cont Ativan for EtOH withdrawal - Cont ASA and BB Patient seen and discussed in detail with Dr. Barr. Isidro Daniels DO PGY2 <Jv Barr - Last Filed: 07/11/18 17:12> Meds - Medications Medications: Current Medications Aspirin (Aspirin Chewable) 81 mg PO DAILY [facility] Last Admin: 07/11/18 10:18 Dose: Not Given Atorvastatin Calcium (Lipitor) 40 mg PO DAILY [facility] Last Admin: 07/09/18 09:04 Dose: 40 mg Dextrose (Dextrose 50% Inj) 0 ml IV STAT PRN; Protocol PRN Reason: Hypoglycemia Protocol Famotidine (Pepcid) 40 mg PO HS [facility] Last Admin: 07/10/18 22:49 Dose: 40 mg Sodium Chloride (Sodium Chloride 0.9%) 1,000 mls @ 100 mls/hr IV .Q10H [facility] Last Admin: 07/11/18 04:12 Dose: 100 mls/hr Dextrose (Dextrose 5% In Water 1000 Ml) 1,000 mls @ 0 mls/hr IV .Q0M PRN; Protocol PRN Reason: Hypoglycemia Protocol Thiamine HCl 100 mg/Multivitamins/Vitamin C 10 ml/Dextrose 2,011 mls @ 100 mls/hr IV .Q20H7M [facility] Stop: 07/12/18 08:00 Last Admin: 07/11/18 13:16 Dose: 100 mls/hr Ibuprofen (Motrin Tab) 400 mg PO Q6H PRN PRN Reason: Pain, severe (8-10) Last Admin: 07/09/18 14:59 Dose: 400 mg Lorazepam (Ativan) 2 mg IVP Q4 [facility]; Protocol Last Admin: 07/11/18 11:16 Dose: 2 mg Lorazepam (Ativan) 2 mg IVP Q2H PRN; Protocol PRN Reason: Symptoms of alcohol withdrawl Last Admin: 07/11/18 14:34 Dose: 2 mg Methadone HCl (Methadone) 170 mg PO Q24H [facility] Last Admin: 07/11/18 15:11 Dose: 170 mg Metoprolol Succinate (Toprol Xl) 25 mg PO BRK [facility] Last Admin: 07/11/18 09:26 Dose: Not Given Nicotine (Nicoderm Cq) 1 patch TD DAILY [facility] Last Admin: 07/11/18 10:22 Dose: 1 patch Ondansetron HCl (Zofran Inj) 4 mg IVP Q4H PRN PRN Reason: Nausea/Vomiting Last Admin: 07/10/18 09:18 Dose: 4 mg Vitamin D (Vitamin D 400 Intl Units Tab) 400 intlu PO DAILY [facility] Last Admin: 07/11/18 10:19 Dose: Not Given Results - Vital Signs Recent Vital Signs: Last Vital Signs Temp 97.8 F 07/11/18 12:00 Pulse 107 H 07/11/18 14:00 Resp 18 07/11/18 12:00 BP 134/113 H 07/11/18 12:00 Pulse Ox 100 07/11/18 06:00 - Labs Result Diagrams: 07/11/18 06:30 07/11/18 06:00 Labs: Laboratory Results - last 24 hr 07/11/18 07/11/18 06:00 06:30 WBC 10.3 D RBC 5.02 Hgb 13.7 L Hct 38.8 L MCV 77.3 L MCH 27.3 MCHC 35.3 RDW 15.0 H Plt Count 64 L MPV 10.8 Gran % 66.7 Lymph % (Auto) 26.6 [place]ack[place] % (Auto) 4.9 Eos % (Auto) 1.6 Baso % (Auto) 0.2 Gran # 6.89 H Lymph # (Auto) 2.8 [place] # (Auto) 0.5 Eos # (Auto) 0.2 Baso # (Auto) 0.02 Sodium 137 Potassium 3.8 Chloride 102 Carbon Dioxide 27 Anion Gap 12 BUN 6 L Creatinine 0.7 L Est GFR ( Amer) > 60 Est GFR (Non-Af Amer) > 60 Random Glucose 89 Calcium 9.8 Total Bilirubin 1.1 AST 524 H D ALT 162 H Alkaline Phosphatase 108 Total Protein 7.1 Albumin 3.9 Globulin 3.2 Albumin/Globulin Ratio 1.2 Attending/Attestation - Attestation I have personally seen and examined this patient.: Yes I have fully participated in the care of the patient.: Yes I have reviewed all pertinent clinical information: Yes Notes (Text): 07/11/18 17:12 I agree with the assessment and plan: will continue stroke work-up and management.
--- NOTE | 2018-07-09 10:33 | CT ---
Date of service: 07/08/2018 PROCEDURE: CT HEAD WITHOUT CONTRAST. HISTORY: Code Stroke COMPARISON: None available. TECHNIQUE: Axial computed tomography images were obtained through the head/brain without intravenous contrast. Radiation dose: Total exam DLP = 975.43 mGy-cm. This CT exam was performed using one or more of the following dose reduction techniques: Automated exposure control, adjustment of the mA and/or kV according to patient size, and/or use of iterative reconstruction technique. FINDINGS: HEMORRHAGE: No intracranial hemorrhage. BRAIN: No mass effect or edema. No atrophy or chronic microvascular ischemic changes. VENTRICLES: Unremarkable. No hydrocephalus. CALVARIUM: Unremarkable. PARANASAL SINUSES: Complete opacification of the left maxillary sinus. MASTOID AIR CELLS: Unremarkable as visualized. No inflammatory changes. OTHER FINDINGS: None. IMPRESSION: No acute hemorrhage.
[2018-07-09 10:58] LABS: TROPONIN I < 0.01 ng/mL
--- NOTE | 2018-07-09 11:03 | CARD ---
APPROVED REPORT Date of service: 07/08/2018 EKG Measurement Heart [id number] <Conclusion> Normal sinus rhythm Normal Electrocardiogram
--- NOTE | 2018-07-09 12:31 | MRI ---
Date of service: 07/09/2018 PROCEDURE: MRI BRAIN WITHOUT CONTRAST HISTORY: Code Stroke COMPARISON: None available. TECHNIQUE: Multiplanar, multisequence MR images of the brain were obtained without intravenous contrast enhancement. FINDINGS: HEMORRHAGE: None DWI: Scattered small punctate deposits of hemosiderin are seen in both hemispheres consistent with microvascular disease. Possible amyloid angiopathy BRAIN PARENCHYMA: No mass effect or edema. Microvascular changes seen in the subcortical white matter in the right frontal lobe. VENTRICLES: Unremarkable. No hydrocephalus. CRANIUM: Unremarkable. ORBITS: Grossly unremarkable. PARANASAL SINUSES/MASTOIDS: There is complete opacification of the left maxillary sinus and left ethmoid sinuses VASCULAR SYSTEM: Skull base flow voids intact. OTHER FINDINGS: None. IMPRESSION: No acute intracranial findings
[2018-07-09] MEDS: Sodium Chloride 0.9% 1,000 ML IV SCH ×3 (12:54→23:24)
[2018-07-09] MEDS: Cholecalciferol 400 Intl Units Tab PO SCH (12:59)
--- NOTE | 2018-07-09 13:03 | CT ---
Date of service: 07/08/2018 PROCEDURE: CT Angiography of the neck with contrast HISTORY: cva COMPARISON: CT 02/13/2018 TECHNIQUE: Contiguous axial images of the neck were obtained from the level of the skull-base to the superior mediastinum in the arteriographic phase of enhancement. Coronal and sagittal reformats or also generated. IV contrast dose: 100 cc of Omni 350 Radiation dose: Total exam DLP = 540.13 mGy-cm. This CT exam was performed using one or more of the following dose reduction techniques: Automated exposure control, adjustment of the mA and/or kV according to patient size, and/or use of iterative reconstruction technique. FINDINGS: RIGHT CAROTID ARTERIES: Common Carotid Artery: Normal. Carotid Bifurcation: Normal. Internal Carotid Artery:There is a fatty and calcified plaque in the proximal right internal carotid without significant stenosis External Carotid Artery (proximal branches): Normal. LEFT CAROTID ARTERIES: Common Carotid Artery: Normal. Carotid Bifurcation: Normal. Internal Carotid Artery:Minimal calcification without stenosis External Carotid Artery (proximal branches): Normal. VERTEBRAL ARTERIES: Right Vertebral Artery: Normal. Left Vertebral Artery: Normal. OTHER FINDINGS: There is a stable aortic dissection which extends into the proximal left subclavian artery IMPRESSION: There is a fatty and calcified plaque in the proximal right internal carotid without significant stenosis Minimal calcification in the left internal carotid without stenosis. Chronic aortic dissection unchanged PROCEDURE: CT Angiography of the Brain. HISTORY: cva COMPARISON: None available. TECHNIQUE: CT angiography of the intracranial arteries was performed. Coronal and sagittal maximum intensity projection reformated images were generated. Radiation dose: Total exam DLP = 540.13 mGy-cm. This CT exam was performed using one or more of the following dose reduction techniques: Automated exposure control, adjustment of the mA and/or kV according to patient size, and/or use of iterative reconstruction technique. FINDINGS: INTERNAL CEREBRAL ARTERIES: Unremarkable. The skull base, petrous, cavernous and supraclinoid segments are bilaterally widely patent. ANTERIOR CEREBRAL ARTERIES: Unremarkable. A1 and A2 segments are widely patent. Smaller distal branches unremarkable, as visualized. MIDDLE CEREBRAL ARTERIES: Unremarkable. M1 and M2 segments are widely patent. Perisylvian branches grossly symmetric. POSTERIOR CIRCULATION: Basilar Artery: Unremarkable. Distal Vertebral Arteries: Unremarkable. Posterior Cerebral Arteries: Unremarkable. Posterior Inferior Cerebellar Arteries: Unremarkable. ANEURYSM/ VASCULAR MALFORMATIONS: None. OTHER FINDINGS: None. IMPRESSION: Unremarkable CT Angiography of the Brain.
[2018-07-09] MEDS: Folic Acid 1 MG, Thiamine 100 MG, Multivitamin (MVI) 10 ML in Dextrose 5% In Water 1,00... IV SCH (16:31)
[2018-07-09 17:17] LABS: TROPONIN I 0.02 ng/mL
--- NOTE | 2018-07-09 17:20 | CARD ---
APPROVED REPORT Date of service: 07/09/2018 EXAM: Two-dimensional and M-mode echocardiogram with Doppler and color Doppler. INDICATION CVA/TIA BUBBLE STUDY 2D DIMENSIONS Left Atrium (2D)3.2 (1.6-4.0cm)IVSd1.1 (0.7-1.1cm) LVDd4.5 (3.9-5.9cm)PWd1.0 (0.7-1.1cm) LVDs3.2 (2.5-4.0cm)FS (%) 29.3 % LVEF (%)56.3 (>50%) M-Mode DIMENSIONS Aortic Root3.70 (2.2-3.7cm)Aortic Cusp Exc.2.20 (1.5-2.0cm) Aortic Valve AoV Peak Mejefbwn904.0cm/Marcelino Peak GR.5mmHg Mitral Valve E/A ratio0.0 TDI E/Lateral E'0.0E/Medial E'0.0 Tricuspid Valve TR Peak [id number] [id number] Peak Gr.28mmHg [id number] LEFT VENTRICLE The left ventricle is normal size. There is normal left ventricular wall thickness. Proximal septal thickening is noted. The left ventricular function is normal.EF-55-60% There is normal LV segmental wall motion. Transmitral Doppler flow pattern is Grade III-reversible restrictive diastolic dysfunction. No left ventricle thrombus noted on this study. There is no ventricular septal defect visualized. There is no left ventricular aneurysm. There is no mass noted in the left ventricle. RIGHT VENTRICLE The right ventricle is normal size. There is normal right ventricular wall thickness. The right ventricular systolic function is normal. ATRIA The left atrium size is normal. The right atrium size is normal. The interatrial septum is intact with no evidence for an atrial septal defect, By Bubble study. AORTIC VALVE The aortic valve is thickened but opens well. There is trace aortic regurgitation. There is no aortic valvular stenosis. There is no aortic valvular vegetation. MITRAL VALVE The mitral valve is thickened but opens well. Mitral regurgitation is mild. There is no mitral valve stenosis. There is no evidence of mitral valve prolapse. TRICUSPID VALVE The tricuspid valve leaflets are thickened , but open well. There is mild tricuspid regurgitation.RVSP-38 mmof Hg. There is no tricuspid valve stenosis. There is no tricuspid valve prolapse or vegetation. PULMONIC VALVE The pulmonic valve is mildly thickened. There is trace to mild pulmonic valvular regurgitation. There is no pulmonic valvular stenosis. GREAT VESSELS The aortic root is normal in size. The ascending aorta is normal in size. The pulmonary artery is normal. The IVC is normal in size and collapses >50% with inspiration. PERICARDIAL EFFUSION There is no pleural effusion. There is no pericardial effusion. <Conclusion> Normal chamber size. EF-55-60%. Mild MR/TR There is trace aortic regurgitation. There is trace to mild pulmonic valvular regurgitation. The IVC is normal in size and collapses >50% with inspiration. There is no pericardial effusion. No Vegetation or thrombus noted. The interatrial septum is intact with no evidence for an atrial septal defect, By Bubble study.
[2018-07-09 22:10] LABS: OPIATES, UR NEGATIVE (NEGATIVE); PHENCYCLIDINE, UR NEGATIVE (NEGATIVE)
[2018-07-09 22:15] LABS: BARBITURATES, UR NEGATIVE (NEGATIVE); BENZODIAZEPINES, UR NEGATIVE (NEGATIVE)
[2018-07-10] MEDS: Folic Acid 1 MG, Thiamine 100 MG, Multivitamin (MVI) 10 ML in Dextrose 5% In Water 1,00... IV SCH ×2 (02:27→11:52)
[2018-07-10 06:51] LABS: BASO # 0.01 K/mm3 (0.0-2.0); BASO % 0.1 % (0.0-3.0); EOS # 0.1 (0.0-0.7); EOS % 0.9 % (1.5-5.0); GRAN # 4.6 (1.4-6.5); HEMOGLOBIN 11.9 g/dL (14.0-18.0); LYMPH # 1.5 (1.2-3.4); LYMPH % 22.2 % (22.0-35.0); MEAN CELL VOLUME 76.9 fl (80.0-105.0); MEAN CORPUSCULAR HEMOGLOBIN 27.2 pg (25.0-35.0); MEAN CORPUSCULAR HGB CONC 35.3 g/dl (31.0-37.0); MEAN PLATELET VOLUME 10.4 fl (7.0-11.0); MONO # 0.5 (0.1-0.6); MONO % 7.8 % (1.0-6.0); RBC 4.38 10^6/uL (3.5-6.1); WHITE BLOOD COUNT 6.7 10^3/uL (4.5-11.0)
[2018-07-10 07:07] LABS: ALB/GLOB RATIO 1.1 (1.1-1.8); ALBUMIN 3.2 g/dL (3.0-4.8); ALT/SGPT 91 U/L (7-56); AST/SGOT 114 U/L (17-59); BLOOD UREA NITROGEN 10 mg/dL (7-21); CALCIUM 8.9 mg/dL (8.4-10.5); GFR NON-AFRICAN AMERICAN > 60
[2018-07-10] MEDS: Metoprolol Succinate 25 mg XL Tab PO SCH (08:02)
[2018-07-10] MEDS: Cholecalciferol 400 Intl Units Tab PO SCH (09:17)
--- NOTE | 2018-07-10 09:42 | CP.PCM.PN ---
<Masood Daniels - Last Filed: 07/10/18 13:41> Subjective - Date & Time of Evaluation Date of Evaluation: 07/10/18 Time of Evaluation: 09:39 - Subjective Subjective: Neurology Progress Note for Dr. Barr Patient seen and examined at bedside. No acute overnight events. Patient denies any further episodes of dysarthria or right-sided weakness. Patient complains of abdominal pain. Patient denies CP, SOB, n/v/d, fever, chills, LOPEZ, or dizziness. Objective - Vital Signs/Intake and Output Vital Signs (last 24 hours): Temp Pulse Resp BP Pulse Ox 98.5 F 72 20 150/93 H 99 07/10/18 06:00 07/10/18 06:00 07/10/18 06:00 07/10/18 08:02 07/10/18 06:00 Intake and Output: 07/10/18 07/10/18 06:59 18:59 Intake Total 3700 Output Total 2250 Balance 1450 - Medications Medications: Current Medications Aspirin (Aspirin Chewable) 81 mg PO DAILY [facility] Last Admin: 07/10/18 09:17 Dose: 81 mg Atorvastatin Calcium (Lipitor) 40 mg PO DAILY [facility] Last Admin: 07/09/18 09:04 Dose: 40 mg Dextrose (Dextrose 50% Inj) 0 ml IV STAT PRN; Protocol PRN Reason: Hypoglycemia Protocol Famotidine (Pepcid) 40 mg PO HS [facility] Last Admin: 07/09/18 21:44 Dose: 40 mg Sodium Chloride (Sodium Chloride 0.9%) 1,000 mls @ 100 mls/hr IV .Q10H [facility] Last Admin: 07/09/18 23:24 Dose: 100 mls/hr Dextrose (Dextrose 5% In Water 1000 Ml) 1,000 mls @ 0 mls/hr IV .Q0M PRN; Protocol PRN Reason: Hypoglycemia Protocol Folic Acid 1 mg/ Thiamine HCl 100 mg/ Multivitamins/Vitamin C 10 ml/ Dextrose 1,011.2 mls @ 100 mls/hr IV .Q10H7M [facility] Last Admin: 07/10/18 02:27 Dose: 100 mls/hr Ibuprofen (Motrin Tab) 400 mg PO Q6H PRN PRN Reason: Pain, severe (8-10) Last Admin: 12/03/18 14:59 Dose: 400 mg Lorazepam (Ativan) 1 mg IVP Q6H PRN; Protocol PRN Reason: Symptoms of alcohol withdrawl Last Admin: 07/09/18 15:08 Dose: 1 mg Lorazepam (Ativan) 1 mg IVP Q6 [facility]; Protocol Last Admin: 07/10/18 05:58 Dose: 1 mg Methadone HCl (Methadone) 170 mg PO Q24H [facility] Last Admin: 07/10/18 08:02 Dose: 170 mg Metoprolol Succinate (Toprol Xl) 25 mg PO BRK [facility] Last Admin: 07/10/18 08:02 Dose: 25 mg Nicotine (Nicoderm Cq) 1 patch TD DAILY [facility] Last Admin: 07/10/18 09:17 Dose: 1 patch Ondansetron HCl (Zofran Inj) 4 mg IVP Q4H PRN PRN Reason: Nausea/Vomiting Last Admin: 07/10/18 09:18 Dose: 4 mg Vitamin D (Vitamin D 400 Intl Units Tab) 400 intlu PO DAILY [facility] Last Admin: 07/10/18 09:17 Dose: 400 intlu - Labs Labs: 07/10/18 06:00 07/10/18 06:00 PT 11.0 SECONDS (9.4-12.5) 07/08/18 21:01 INR 0.97 07/08/18 21:01 APTT 26.1 Seconds (25.1-36.5) 07/08/18 21:01 - Constitutional Appears: Non-toxic - Head Exam Head Exam: NORMAL INSPECTION - Eye Exam Eye Exam: Normal appearance - ENT Exam ENT Exam: Mucous Membranes Moist, Normal Exam - Neck Exam Neck Exam: Normal Inspection - Respiratory Exam Respiratory Exam: Clear to Ausculation Bilateral, NORMAL BREATHING PATTERN - Cardiovascular Exam Cardiovascular Exam: REGULAR RHYTHM - GI/Abdominal Exam GI & Abdominal Exam: Soft, Normal Bowel Sounds - Extremities Exam Extremities Exam: Normal Inspection - Back Exam Back Exam: NORMAL INSPECTION - Neurological Exam Neurological Exam: Alert, Awake, CN II-XII Intact, Oriented x3 Additional comments: Strength: RUE and LUE 5/5 RLE 4/5, LLE 5/5 Sensation intact grossly DTR intact throughout No facial droop noted + mild b/l tremors - Psychiatric Exam Psychiatric exam: Normal Affect, Normal Mood - Skin Skin Exam: Normal Color Assessment and Plan - Assessment and Plan (Free Text) Assessment: 52 yo M with PMH of polysubstance abuse, history of alcohol withdrawal, HTN, HLD, chronic pancreatitis and aortic dissection s/p repair in 2014 presented to [facility] for slurred speech and right sided weakness. CVA unlikely as MRI was negative. TIA vs hypoglycemia vs EtOH abuse is more likely the etiology for his transient symptoms. Patient also on methadone due to history of opioid abuse. Plan: - CT head negative - CTA head/neck showed stable dissection of aortic arch - MRI Brain negative - Echo with bubble study negative for PFO, normal LVEF - Cont ASA and BB - Patient stable from neurological standpoint, at this time we will sign off. Please reconsult if needed. Patient seen and discussed in detail with Dr. Barr. Isidro Daniels, DO PGY2 <Jv Barr - Last Filed: 07/11/18 16:55> Objective - Vital Signs/Intake and Output Vital Signs (last 24 hours): Temp Pulse Resp BP Pulse Ox 97.8 F 107 H 18 134/113 H 100 07/11/18 12:00 07/11/18 14:00 07/11/18 12:00 07/11/18 12:00 07/11/18 06:00 Intake and Output: 07/11/18 07/11/18 06:59 18:59 Intake Total 640 Output Total 0 Balance 640 - Medications Medications: Current Medications Aspirin (Aspirin Chewable) 81 mg PO DAILY [facility] Last Admin: 07/11/18 10:18 Dose: Not Given Atorvastatin Calcium (Lipitor) 40 mg PO DAILY [facility] Last Admin: 07/09/18 09:04 Dose: 40 mg Dextrose (Dextrose 50% Inj) 0 ml IV STAT PRN; Protocol PRN Reason: Hypoglycemia Protocol Famotidine (Pepcid) 40 mg PO HS [facility] Last Admin: 07/10/18 22:49 Dose: 40 mg Sodium Chloride (Sodium Chloride 0.9%) 1,000 mls @ 100 mls/hr IV .Q10H [facility] Last Admin: 07/11/18 04:12 Dose: 100 mls/hr Dextrose (Dextrose 5% In Water 1000 Ml) 1,000 mls @ 0 mls/hr IV .Q0M PRN; Protocol PRN Reason: Hypoglycemia Protocol Thiamine HCl 100 mg/Multivitamins/Vitamin C 10 ml/Dextrose 2,011 mls @ 100 mls/hr IV .Q20H7M [facility] Stop: 07/12/18 08:00 Last Admin: 07/11/18 13:16 Dose: 100 mls/hr Ibuprofen (Motrin Tab) 400 mg PO Q6H PRN PRN Reason: Pain, severe (8-10) Last Admin: 07/09/18 14:59 Dose: 400 mg Lorazepam (Ativan) 2 mg IVP Q4 [facility]; Protocol Last Admin: 07/11/18 11:16 Dose: 2 mg Lorazepam (Ativan) 2 mg IVP Q2H PRN; Protocol PRN Reason: Symptoms of alcohol withdrawl Last Admin: 07/11/18 14:34 Dose: 2 mg Methadone HCl (Methadone) 170 mg PO Q24H [facility] Last Admin: 07/11/18 15:11 Dose: 170 mg Metoprolol Succinate (Toprol Xl) 25 mg PO BRK [facility] Last Admin: 07/11/18 09:26 Dose: Not Given Nicotine (Nicoderm Cq) 1 patch TD DAILY [facility] Last Admin: 07/11/18 10:22 Dose: 1 patch Ondansetron HCl (Zofran Inj) 4 mg IVP Q4H PRN PRN Reason: Nausea/Vomiting Last Admin: 07/10/18 09:18 Dose: 4 mg Vitamin D (Vitamin D 400 Intl Units Tab) 400 intlu PO DAILY [facility] Last Admin: 07/11/18 10:19 Dose: Not Given - Labs Labs: 07/11/18 06:30 07/11/18 06:00 PT 11.0 SECONDS (9.4-12.5) 07/08/18 21:01 INR 0.97 07/08/18 21:01 APTT 26.1 Seconds (25.1-36.5) 07/08/18 21:01 Attending/Attestation - Attestation I have personally seen and examined this patient.: Yes I have fully participated in the care of the patient.: Yes I have reviewed all pertinent clinical information, including history, physical exam and plan: Yes Notes (Text): 07/11/18 16:54 I agree with the assessment and plan: Patient stable from neurological standp oint, at this time we will sign off.
[2018-07-10] MEDS: Sodium Chloride 0.9% 1,000 ML IV SCH ×2 (11:53→20:47)
--- NOTE | 2018-07-10 16:16 | CP.PCM.PN ---
<Luann Mae - Last Filed: 07/10/18 16:49> Subjective - Date & Time of Evaluation Date of Evaluation: 07/10/18 Time of Evaluation: 16:49 - Subjective Subjective: Luann Mae, PGY-1, Internal Medicine Progress Note for Dr. Copeland Patient seen and evaluated at bedside. Patient's last CIWA was 21 as per nurses and was found to be diaphoretic and patient was subsequently started on librium 5 mg Q8 and ativan 2 mg Q4 and Q2PRN which helped alleviate the symptoms. This morning, patient complained of nausea but has not had any vomiting for the past 24 hours. Patient has diffuse epigastric pain and last bowel movement was on Monday. Patient denies chest pain, shortness of breath, and weakness today. Objective - Vital Signs/Intake and Output Vital Signs (last 24 hours): Temp Pulse Resp BP Pulse Ox 98.6 F 72 18 138/98 H 99 07/10/18 12:00 07/10/18 12:00 07/10/18 12:00 07/10/18 12:00 07/10/18 06:00 Intake and Output: 07/10/18 07/10/18 06:59 18:59 Intake Total 3700 Output Total 2250 Balance 1450 - Medications Medications: Current Medications Aspirin (Aspirin Chewable) 81 mg PO DAILY [facility] Last Admin: 07/10/18 09:17 Dose: 81 mg Atorvastatin Calcium (Lipitor) 40 mg PO DAILY [facility] Last Admin: 07/09/18 09:04 Dose: 40 mg Chlordiazepoxide (Librium) 5 mg PO Q8H PRN; Protocol PRN Reason: Symptoms of alcohol withdrawl Last Admin: 07/10/18 15:35 Dose: 5 mg Dextrose (Dextrose 50% Inj) 0 ml IV STAT PRN; Protocol PRN Reason: Hypoglycemia Protocol Famotidine (Pepcid) 40 mg PO HS [facility] Last Admin: 07/09/18 21:44 Dose: 40 mg Sodium Chloride (Sodium Chloride 0.9%) 1,000 mls @ 100 mls/hr IV .Q10H [facility] Last Admin: 07/10/18 11:53 Dose: Not Given Dextrose (Dextrose 5% In Water 1000 Ml) 1,000 mls @ 0 mls/hr IV .Q0M PRN; Protocol PRN Reason: Hypoglycemia Protocol Folic Acid 1 mg/ Thiamine HCl 100 mg/ Multivitamins/Vitamin C 10 ml/ Dextrose 1,011.2 mls @ 100 mls/hr IV .Q10H7M [facility] Last Admin: 07/10/18 11:52 Dose: Not Given Ibuprofen (Motrin Tab) 400 mg PO Q6H PRN PRN Reason: Pain, severe (8-10) Last Admin: 07/09/18 14:59 Dose: 400 mg Lorazepam (Ativan) 2 mg IVP Q4 [facility]; Protocol Lorazepam (Ativan) 2 mg IVP Q2H PRN; Protocol PRN Reason: Symptoms of alcohol withdrawl Methadone HCl (Methadone) 170 mg PO Q24H [facility] Last Admin: 07/10/18 08:02 Dose: 170 mg Metoprolol Succinate (Toprol Xl) 25 mg PO BRK [facility] Last Admin: 07/10/18 08:02 Dose: 25 mg Nicotine (Nicoderm Cq) 1 patch TD DAILY [facility] Last Admin: 07/10/18 09:17 Dose: 1 patch Ondansetron HCl (Zofran Inj) 4 mg IVP Q4H PRN PRN Reason: Nausea/Vomiting Last Admin: 07/10/18 09:18 Dose: 4 mg Vitamin D (Vitamin D 400 Intl Units Tab) 400 intlu PO DAILY [facility] Last Admin: 07/10/18 09:17 Dose: 400 intlu - Labs Labs: 07/10/18 06:00 07/10/18 06:00 PT 11.0 SECONDS (9.4-12.5) 07/08/18 21:01 INR 0.97 07/08/18 21:01 APTT 26.1 Seconds (25.1-36.5) 07/08/18 21:01 - Constitutional Appears: No Acute Distress - Head Exam Head Exam: ATRAUMATIC, NORMAL INSPECTION, NORMOCEPHALIC - Eye Exam Eye Exam: EOMI Pupil Exam: PERRL - Respiratory Exam Respiratory Exam: Clear to Ausculation Bilateral, NORMAL BREATHING PATTERN - Cardiovascular Exam Cardiovascular Exam: REGULAR RHYTHM - GI/Abdominal Exam GI & Abdominal Exam: Guarding (voluntary), Tenderness (diffuse). absent: Rigid, Rebound - Extremities Exam Extremities Exam: Full ROM - Neurological Exam Neurological Exam: Alert, Awake, CN II-XII Intact, Oriented x3 - Psychiatric Exam Psychiatric exam: Agitated (agitated post initial evaluation) - Skin Skin Exam: Diaphoretic (diaphoretic post initial evaluation) Assessment and Plan - Assessment and Plan (Free Text) Assessment: 52 year old male with past medical history of polysubstance abuse, alcohol withdrawal, hypertension, hyperlipidemia, chronic pancreatitis, and aortic dissection s/p repair presented with slurring of speech and R sided weakness on admission and was found to have to be hypoglycemic. Patient's symptoms improved after administration of amp of D50. Plan: Alcohol withdrawal -Last CIWA was 21 -Patient started on librium 5 mg q8, ativan 2 mg Q4 and Q2 PRN -Continue with banana bag. When banana bag is completed, start NS with thiamine and multivitamin. -CIWA check Q4, seizure precautions, aspiration precautions Right sided weakness -Resolved after administration of D50 amp. Patient has not had similar symptoms since that time. -CTA of brain and CT of brain show no acute intracranial hemorrhage or infarct. -Swallow eval, speech eval -Patient is stable from neurological standpoint as per neurology. Abdominal Tenderness -Patient reports epigastric pain with associated nausea. -Patient has had history of pancreatitis episodes. -Lipase: 590 -AST: 114, ALT: 91, ALP: 79 -Will follow up with abdominal ultrasound to evaluate for cholelithiasis and cholecystitis due to elevation of LFTs. Further workup with abdominal CT can be performed if this yields no results. Hypoglycemia -Blood glucose: 131 -Resolved History of hypertension -Systolic blood pressure has ranged from 133-162. -Continue with home metoprolol. History of hyperlipidemia -Continue with home aspirin and lipitor. Polysubstance abuse -Continue with methadone daily Hx of Tobacco Use -Continue with nicotine patch <Felisha Copeland - Last Filed: 07/10/18 17:50> Objective - Vital Signs/Intake and Output Vital Signs (last 24 hours): Temp Pulse Resp BP Pulse Ox 98.6 F 72 18 138/98 H 99 07/10/18 12:00 07/10/18 12:00 07/10/18 12:00 07/10/18 12:00 07/10/18 06:00 Intake and Output: 07/10/18 07/10/18 06:59 18:59 Intake Total 3700 Output Total 2250 Balance 1450 - Medications Medications: Current Medications Aspirin (Aspirin Chewable) 81 mg PO DAILY [facility] Last Admin: 07/10/18 09:17 Dose: 81 mg Atorvastatin Calcium (Lipitor) 40 mg PO DAILY [facility] Last Admin: 07/09/18 09:04 Dose: 40 mg Chlordiazepoxide (Librium) 5 mg PO Q8H PRN; Protocol PRN Reason: Symptoms of alcohol withdrawl Last Admin: 07/10/18 15:35 Dose: 5 mg Dextrose (Dextrose 50% Inj) 0 ml IV STAT PRN; Protocol PRN Reason: Hypoglycemia Protocol Famotidine (Pepcid) 40 mg PO HS [facility] Last Admin: 07/09/18 21:44 Dose: 40 mg Sodium Chloride (Sodium Chloride 0.9%) 1,000 mls @ 100 mls/hr IV .Q10H [facility] Last Admin: 07/10/18 11:53 Dose: Not Given Dextrose (Dextrose 5% In Water 1000 Ml) 1,000 mls @ 0 mls/hr IV .Q0M PRN; Protocol PRN Reason: Hypoglycemia Protocol Folic Acid 1 mg/ Thiamine HCl 100 mg/ Multivitamins/Vitamin C 10 ml/ Dextrose 1,011.2 mls @ 100 mls/hr IV .Q10H7M [facility] Last Admin: 07/10/18 11:52 Dose: Not Given Thiamine HCl 100 mg/Multivitamins/Vitamin C 10 ml/Sodium Chloride 1,011 mls @ 100 mls/hr IV .Q10H7M [facility] Stop: 07/11/18 02:37 Ibuprofen (Motrin Tab) 400 mg PO Q6H PRN PRN Reason: Pain, severe (8-10) Last Admin: 07/09/18 14:59 Dose: 400 mg Lorazepam (Ativan) 2 mg IVP Q4 [facility]; Protocol Last Admin: 07/10/18 17:21 Dose: 2 mg Lorazepam (Ativan) 2 mg IVP Q2H PRN; Protocol PRN Reason: Symptoms of alcohol withdrawl Methadone HCl (Methadone) 170 mg PO Q24H [facility] Last Admin: 07/10/18 08:02 Dose: 170 mg Metoprolol Succinate (Toprol Xl) 25 mg PO BRK [facility] Last Admin: 07/10/18 08:02 Dose: 25 mg Nicotine (Nicoderm Cq) 1 patch TD DAILY [facility] Last Admin: 07/10/18 09:17 Dose: 1 patch Ondansetron HCl (Zofran Inj) 4 mg IVP Q4H PRN PRN Reason: Nausea/Vomiting Last Admin: 07/10/18 09:18 Dose: 4 mg Vitamin D (Vitamin D 400 Intl Units Tab) 400 intlu PO DAILY [facility] Last Admin: 07/10/18 09:17 Dose: 400 intlu - Labs Labs: 07/10/18 06:00 07/10/18 06:00 PT 11.0 SECONDS (9.4-12.5) 07/08/18 21:01 INR 0.97 07/08/18 21:01 APTT 26.1 Seconds (25.1-36.5) 07/08/18 21:01 Attending/Attestation - Attestation I have personally seen and examined this patient.: Yes I have fully participated in the care of the patient.: Yes I have reviewed all pertinent clinical information, including history, physical exam and plan: Yes Notes (Text): 07/10/18 17:45 52 year old male with past medical history of alcohol and substance abuse, hypertension, dyslipidemia, chronic pancreatitis and aortic dissection s/p repair who presented with complaint of slurred speech and right sided weakness (now resolved). At the time he was found to have hypoglycemia and alcohol intoxication. CT head, CTA H/N, MRI brain were negative for acute findings. Neurology is following and has signed off. He is on aspirin but not on statin secondary to elevated LFTs. PT evaluation was also appreciated. He is on banana bag and ativan cesar/prn for alcohol withdrawal symptoms. He was counselled on alcohol cessation. Continue with [facility] protocol. He complains of abdominal pain and nausea. Lipase and LFTs are elevated but improving. He is on liquid diet and ultrasound abdomen is ordered. He is on methadone. Felisha Copeland MD Hospitalist.
[2018-07-10] MEDS ORDERED: SODIUM CHLORIDE IV STA (16:31)
[2018-07-10] MEDS ORDERED: MULTIVITAMIN IV STA (16:31)
[2018-07-10] MEDS ORDERED: THIAMINE IV STA (16:31)
[2018-07-11] MEDS: Sodium Chloride 0.9% 1,000 ML IV SCH (04:12)
[2018-07-11 07:03] LABS: BASO # 0.02 K/mm3 (0.0-2.0); BASO % 0.2 % (0.0-3.0); EOS # 0.2 (0.0-0.7); EOS % 1.6 % (1.5-5.0); GRAN # 6.89 (1.4-6.5); GRAN % 66.7 % (50.0-68.0); HEMOGLOBIN 13.7 g/dL (14.0-18.0); LYMPH # 2.8 (1.2-3.4); LYMPH % 26.6 % (22.0-35.0); MEAN CELL VOLUME 77.3 fl (80.0-105.0); MEAN CORPUSCULAR HEMOGLOBIN 27.3 pg (25.0-35.0); MEAN CORPUSCULAR HGB CONC 35.3 g/dl (31.0-37.0); MEAN PLATELET VOLUME 10.8 fl (7.0-11.0); MONO # 0.5 (0.1-0.6); MONO % 4.9 % (1.0-6.0); RBC 5.02 10^6/uL (3.5-6.1); WHITE BLOOD COUNT 10.3 10^3/uL (4.5-11.0)
[2018-07-11 07:58] LABS: ALB/GLOB RATIO 1.2 (1.1-1.8); ALBUMIN 3.9 g/dL (3.0-4.8); ALT/SGPT 162 U/L (7-56); AST/SGOT 524 U/L (17-59); BLOOD UREA NITROGEN 6 mg/dL (7-21); CALCIUM 9.8 mg/dL (8.4-10.5); GFR NON-AFRICAN AMERICAN > 60
[2018-07-11] MEDS: Metoprolol Succinate 25 mg XL Tab PO SCH (09:26)
[2018-07-11] MEDS: Cholecalciferol 400 Intl Units Tab PO SCH (10:19)
[2018-07-11] MEDS ORDERED: MULTIVITAMIN IV STA (11:54)
[2018-07-11] MEDS ORDERED: WATER IV STA (11:54)
[2018-07-11] MEDS ORDERED: THIAMINE IV STA (11:54)
[2018-07-11] MEDS ORDERED: DEXTROSE IV STA (11:54)
--- NOTE | 2018-07-11 13:59 | US ---
Date of service: 07/11/2018 HISTORY: abd pain COMPARISON: 05/18/2017. TECHNIQUE: Sonographic evaluation of the abdomen. FINDINGS: LIVER: Measures 14.0 cm. Hepatopedal blood flow. Fatty infiltration manifest ultrasonographically as increased echogenicity of the liver parenchyma. No mass. No intrahepatic bile duct dilatation. GALLBLADDER: Unremarkable. No gallstones. COMMON BILE DUCT: Measures 5.2 mm. No stones. No dilatation. PANCREAS: Unremarkable as visualized. No mass. No ductal dilatation. RIGHT KIDNEY: Measures 5.4 x 9.6cm. Normal echogenicity. No calculus, mass, or hydronephrosis. LEFT KIDNEY: Measures 5.6 x 9.6cm. Normal echogenicity. No calculus, mass, or hydronephrosis. SPLEEN: Normal in size and contour. No mass. AORTA: No aneurysmal dilatation. IVC: Unremarkable. OTHER FINDINGS: None. IMPRESSION: No significant or acute findings to account for/ related to the clinical presentation. Additional benign and/or incidental findings described above. No significant interval change compared to the prior examination(s).
--- NOTE | 2018-07-11 14:39 | CP.PCM.PN ---
<Luann Mae - Last Filed: 07/11/18 14:36> Subjective - Date & Time of Evaluation Date of Evaluation: 07/11/18 Time of Evaluation: 14:36 - Subjective Subjective: Luann Mae, PGY-1, Internal Medicine Progress Note for Dr. Copeland Patient seen and evaluated at bedside. Patient is confused, hallucinating, and on restraints at bedside. Patient's CIWA score this morning was 15. Patient is AAOx3. History was difficult to evaluate this morning due to patient's altered mental status. 12-point ROS was unreliable due to patient's altered mental status. Objective - Vital Signs/Intake and Output Vital Signs (last 24 hours): Temp Pulse Resp BP Pulse Ox 97.8 F 82 18 134/113 H 100 07/11/18 12:00 07/11/18 12:00 07/11/18 12:00 07/11/18 12:00 07/11/18 06:00 Intake and Output: 07/11/18 07/11/18 06:59 18:59 Intake Total 640 Output Total 0 Balance 640 - Medications Medications: Current Medications Aspirin (Aspirin Chewable) 81 mg PO DAILY [facility] Last Admin: 07/11/18 10:18 Dose: Not Given Atorvastatin Calcium (Lipitor) 40 mg PO DAILY [facility] Last Admin: 07/09/18 09:04 Dose: 40 mg Dextrose (Dextrose 50% Inj) 0 ml IV STAT PRN; Protocol PRN Reason: Hypoglycemia Protocol Famotidine (Pepcid) 40 mg PO HS [facility] Last Admin: 07/10/18 22:49 Dose: 40 mg Sodium Chloride (Sodium Chloride 0.9%) 1,000 mls @ 100 mls/hr IV .Q10H [facility] Last Admin: 07/11/18 04:12 Dose: 100 mls/hr Dextrose (Dextrose 5% In Water 1000 Ml) 1,000 mls @ 0 mls/hr IV .Q0M PRN; P rotocol PRN Reason: Hypoglycemia Protocol Thiamine HCl 100 mg/Multivitamins/Vitamin C 10 ml/Dextrose 2,011 mls @ 100 mls/hr IV .Q20H7M STA Stop: 07/12/18 08:00 Last Admin: 07/11/18 13:16 Dose: 100 mls/hr Ibuprofen (Motrin Tab) 400 mg PO Q6H PRN PRN Reason: Pain, severe (8-10) Last Admin: 07/09/18 14:59 Dose: 400 mg Lorazepam (Ativan) 2 mg IVP Q4 [facility]; Protocol Last Admin: 07/11/18 11:16 Dose: 2 mg Lorazepam (Ativan) 2 mg IVP Q2H PRN; Protocol PRN Reason: Symptoms of alcohol withdrawl Last Admin: 07/11/18 14:34 Dose: 2 mg Methadone HCl (Methadone) 170 mg PO Q24H [facility] Last Admin: 07/11/18 09:26 Dose: Not Given Metoprolol Succinate (Toprol Xl) 25 mg PO BRK [facility] Last Admin: 07/11/18 09:26 Dose: Not Given Nicotine (Nicoderm Cq) 1 patch TD DAILY [facility] Last Admin: 07/11/18 10:22 Dose: 1 patch Ondansetron HCl (Zofran Inj) 4 mg IVP Q4H PRN PRN Reason: Nausea/Vomiting Last Admin: 07/10/18 09:18 Dose: 4 mg Vitamin D (Vitamin D 400 Intl Units Tab) 400 intlu PO DAILY [facility] Last Admin: 07/11/18 10:19 Dose: Not Given - Labs Labs: 07/11/18 06:30 07/11/18 06:00 PT 11.0 SECONDS (9.4-12.5) 07/08/18 21:01 INR 0.97 07/08/18 21:01 APTT 26.1 Seconds (25.1-36.5) 07/08/18 21:01 - Constitutional Appears: Well, Non-toxic, No Acute Distress - Head Exam Head Exam: ATRAUMATIC, NORMAL INSPECTION, NORMOCEPHALIC - Eye Exam Eye Exam: EOMI Pupil Exam: PERRL - Respiratory Exam Respiratory Exam: Clear to Ausculation Bilateral, NORMAL BREATHING PATTERN - Cardiovascular Exam Cardiovascular Exam: REGULAR RHYTHM, RRR - GI/Abdominal Exam GI & Abdominal Exam: Soft, Tenderness (diffuse), Hypoactive Bowel Sounds. absent: Firm, Guarding, Rigid - Extremities Exam Extremities Exam: Full ROM - Neurological Exam Neurological Exam: Alert, Awake, CN II-XII Intact - Psychiatric Exam Additional comments: hallucinations, confusion, agitated Assessment and Plan - Assessment and Plan (Free Text) Assessment: 52 year old male with past medical history of polysubstance abuse, alcohol withdrawal, hypertension, hyperlipidemia, chronic pancreatitis, and aortic dissection s/p repair presented with slurring of speech and R sided weakness on admission and was found to have to be hypoglycemic. Patient's symptoms improved after administration of amp of D50. Plan: Alcohol withdrawal -Last CIWA was 16 -Patient continued on ativan 2 mg Q4 and Q2 PRN -Continue with D5W with thiamine and multivitamin. -CIWA check Q4, seizure precautions, aspiration precautions Right sided weakness -Resolved after administration of D50 amp. Patient has not had similar symptoms since that time. -CTA of brain and CT of brain show no acute intracranial hemorrhage or infarct. -Swallow eval, speech eval -Patient is stable from neurological standpoint as per neurology. Abdominal Tenderness -Patient reports epigastric pain with associated nausea. -Patient has had history of pancreatitis episodes. -Lipase: 590 -AST: 521 from 114, ALT: 162 from 91, ALP: 108 from 79 -Abdominal ultrasound: Fatty infiltration as increased echogenicity of the liver parenchyma. No mass. No intrahepatic bile duct dilatation. -At this point, would not consider abdominal CT. Will consider abdominal CT in the future if patient's condition changes. Hypoglycemia -Blood glucose: 89 -Resolved History of hypertension -Systolic blood pressure has ranged from 126-134 -Continue with home metoprolol. History of hyperlipidemia -Continue with home aspirin and lipitor. Polysubstance abuse -Continue with methadone daily Hx of Tobacco Use -Continue with nicotine patch GI prophylaxis: pepcid 40 mg daily DVT prophylaxis: SCD <Felisha oCpeland - Last Filed: 07/11/18 15:24> Objective - Vital Signs/Intake and Output Vital Signs (last 24 hours): Temp Pulse Resp BP Pulse Ox 97.8 F 82 18 134/113 H 100 07/11/18 12:00 07/11/18 12:00 07/11/18 12:00 07/11/18 12:00 07/11/18 06:00 Intake and Output: 07/11/18 07/11/18 06:59 18:59 Intake Total 640 Output Total 0 Balance 640 - Medications Medications: Current Medications Aspirin (Aspirin Chewable) 81 mg PO DAILY [facility] Last Admin: 07/11/18 10:18 Dose: Not Given Atorvastatin Calcium (Lipitor) 40 mg PO DAILY [facility] Last Admin: 07/09/18 09:04 Dose: 40 mg Dextrose (Dextrose 50% Inj) 0 ml IV STAT PRN; Protocol PRN Reason: Hypoglycemia Protocol Famotidine (Pepcid) 40 mg PO HS [facility] Last Admin: 07/10/18 22:49 Dose: 40 mg Sodium Chloride (Sodium Chloride 0.9%) 1,000 mls @ 100 mls/hr IV .Q10H [facility] Last Admin: 07/11/18 04:12 Dose: 100 mls/hr Dextrose (Dextrose 5% In Water 1000 Ml) 1,000 mls @ 0 mls/hr IV .Q0M PRN; Protocol PRN Reason: Hypoglycemia Protocol Thiamine HCl 100 mg/Multivitamins/Vitamin C 10 ml/Dextrose 2,011 mls @ 100 mls/hr IV .Q20H7M STA Stop: 07/12/18 08:00 Last Admin: 07/11/18 13:16 Dose: 100 mls/hr Ibuprofen (Motrin Tab) 400 mg PO Q6H PRN PRN Reason: Pain, severe (8-10) Last Admin: 07/09/18 14:59 Dose: 400 mg Lorazepam (Ativan) 2 mg IVP Q4 [facility]; Protocol Last Admin: 07/11/18 11:16 Dose: 2 mg Lorazepam (Ativan) 2 mg IVP Q2H PRN; Protocol PRN Reason: Symptoms of alcohol withdrawl Last Admin: 07/11/18 14:34 Dose: 2 mg Methadone HCl (Methadone) 170 mg PO Q24H [facility] Last Admin: 07/11/18 15:11 Dose: 170 mg Metoprolol Succinate (Toprol Xl) 25 mg PO BRK [facility] Last Admin: 07/11/18 09:26 Dose: Not Given Nicotine (Nicoderm Cq) 1 patch TD DAILY [facility] Last Admin: 07/11/18 10:22 Dose: 1 patch Ondansetron HCl (Zofran Inj) 4 mg IVP Q4H PRN PRN Reason: Nausea/Vomiting Last Admin: 07/10/18 09:18 Dose: 4 mg Vitamin D (Vitamin D 400 Intl Units Tab) 400 intlu PO DAILY [facility] Last Admin: 07/11/18 10:19 Dose: Not Given - Labs Labs: 07/11/18 06:30 07/11/18 06:00 PT 11.0 SECONDS (9.4-12.5) 07/08/18 21:01 INR 0.97 07/08/18 21:01 APTT 26.1 Seconds (25.1-36.5) 07/08/18 21:01 Attending/Attestation - Attestation I have personally seen and examined this patient.: Yes I have fully participated in the care of the patient.: Yes I have reviewed all pertinent clinical information, including history, physical exam and plan: Yes Notes (Text): 07/11/18 15:20 52 year old male with past medical history of alcohol and substance abuse, hypertension, dyslipidemia, chronic pancreatitis and aortic dissection s/p repair who presented with complaint of slurred speech and right sided weakness (now resolved). At the time he was found to have hypoglycemia and alcohol intoxication. CT head, CTA H/N, MRI brain were negative for acute findings. Neurology is following and has signed off. He is on aspirin but not on statin secondary to elevated LFTs. PT evaluation was also appreciated. He is on banana bag and ativan cesar/prn for alcohol withdrawal symptoms. He was started on 1:1 yesterday for agitation and restlessness and his ativan was increased. He was counselled on alcohol cessation. Continue with CIWA protocol. He complained of abdominal pain and nausea which has improved. He is tolerating liquid diet. LFTs are increased today. Will continue to monitor and hepatotoxic agents. Abdominal ultrasound was done today which showed fatty liver. He is on methadone. Felisha Copeland MD Hospitalist.
[2018-07-12 06:42] LABS: BASO # 0.01 K/mm3 (0.0-2.0); BASO % 0.1 % (0.0-3.0); EOS # 0.3 (0.0-0.7); EOS % 2.3 % (1.5-5.0); GRAN # 7.5 (1.4-6.5); GRAN % 66.8 % (50.0-68.0); HEMOGLOBIN 13.7 g/dL (14.0-18.0); LYMPH # 2.7 (1.2-3.4); LYMPH % 24.2 % (22.0-35.0); MEAN CORPUSCULAR HEMOGLOBIN 27.2 pg (25.0-35.0); MEAN CORPUSCULAR HGB CONC 35.3 g/dl (31.0-37.0); MONO # 0.7 (0.1-0.6); MONO % 6.6 % (1.0-6.0); RBC 5.04 10^6/uL (3.5-6.1); RED CELL DISTRIBUTION WIDTH 14.9 % (11.5-14.5); WHITE BLOOD COUNT 11.2 10^3/uL (4.5-11.0)
[2018-07-12 07:00] LABS: ALB/GLOB RATIO 1.2 (1.1-1.8); ALBUMIN 3.8 g/dL (3.0-4.8); ALT/SGPT 154 U/L (7-56); AST/SGOT 357 U/L (17-59); BLOOD UREA NITROGEN 12 mg/dL (7-21); CALCIUM 9.4 mg/dL (8.4-10.5); GFR NON-AFRICAN AMERICAN > 60
[2018-07-12] MEDS: Metoprolol Succinate 25 mg XL Tab PO SCH (09:02)
[2018-07-12] MEDS: Cholecalciferol 400 Intl Units Tab PO SCH (09:02)
--- NOTE | 2018-07-12 11:32 | CP.PCM.PN ---
<Luann Mae - Last Filed: 07/12/18 12:05> Subjective - Date & Time of Evaluation Date of Evaluation: 07/12/18 Time of Evaluation: 11:27 - Subjective Subjective: Luann Mae, PGY-1, Internal Medicine Progress Note for Dr. Copeland Patient seen and evaluated at bedside. Patient had no acute overnight events. Patient's last CIWA score was 1. Patient complains of diffuse headache, chest pain, abdominal pain, back pain, and reports nausea. Patient was awaiting next methadone dose. Patient denies dysuria and hematuria. 12-point ROS was negative except for what was listed above. Objective - Vital Signs/Intake and Output Vital Signs (last 24 hours): Temp Pulse Resp BP Pulse Ox 99.1 F 78 21 121/94 H 98 07/12/18 06:00 07/12/18 09:02 07/12/18 06:00 07/12/18 06:00 07/12/18 00:00 Intake and Output: 07/12/18 07/12/18 06:59 18:59 Intake Total 960 Output Total 3 Balance 957 - Medications Medications: Current Medications Aspirin (Aspirin Chewable) 81 mg PO DAILY [facility] Last Admin: 07/12/18 09:02 Dose: 81 mg Atorvastatin Calcium (Lipitor) 40 mg PO DAILY [facility] Last Admin: 07/09/18 09:04 Dose: 40 mg Dextrose (Dextrose 50% Inj) 0 ml IV STAT PRN; Protocol PRN Reason: Hypoglycemia Protocol Famotidine (Pepcid) 40 mg PO HS [facility] Last Admin: 07/12/18 05:41 Dose: Not Given Folic Acid (Folic Acid) 1 mg PO DAILY [facility] Sodium Chloride (Sodium Chloride 0.9%) 1,000 mls @ 100 mls/hr IV .Q10H [facility] Last Admin: 07/11/18 04:12 Dose: 100 mls/hr Dextrose (Dextrose 5% In Water 1000 Ml) 1,000 mls @ 0 mls/hr IV .Q0M PRN; Protocol PRN Reason: Hypoglycemia Protocol Ibuprofen (Motrin Tab) 400 mg PO Q6H PRN PRN Reason: Pain, severe (8-10) Last Admin: 07/09/18 14:59 Dose: 400 mg Lorazepam (Ativan) 2 mg IVP Q2H PRN; Protocol PRN Reason: Symptoms of alcohol withdrawl Last Admin: 07/11/18 14:34 Dose: 2 mg Lorazepam (Ativan) 1 mg IVP Q4H [facility]; Protocol Methadone HCl (Methadone) 170 mg PO Q24H [facility] Last Admin: 07/12/18 09:04 Dose: 170 mg Metoprolol Succinate (Toprol Xl) 25 mg PO BRK [facility] Last Admin: 07/12/18 09:02 Dose: 25 mg Multivitamins/Minerals (Therapeutic-M Tab) 1 tab PO 0800 [facility] Nicotine (Nicoderm Cq) 1 patch TD DAILY [facility] Last Admin: 07/12/18 09:02 Dose: 1 patch Ondansetron HCl (Zofran Inj) 4 mg IVP Q4H PRN PRN Reason: Nausea/Vomiting Last Admin: 07/10/18 09:18 Dose: 4 mg Thiamine HCl (Vitamin B1 Tab) 100 mg PO DAILY [facility] Vitamin D (Vitamin D 400 Intl Units Tab) 400 intlu PO DAILY [facility] Last Admin: 07/12/18 09:02 Dose: 400 intlu - Labs Labs: 07/12/18 06:00 07/12/18 06:00 PT 11.0 SECONDS (9.4-12.5) 07/08/18 21:01 INR 0.97 07/08/18 21:01 APTT 26.1 Seconds (25.1-36.5) 07/08/18 21:01 - Constitutional Appears: Well, Non-toxic, No Acute Distress - Head Exam Head Exam: ATRAUMATIC, NORMAL INSPECTION, NORMOCEPHALIC - Eye Exam Eye Exam: EOMI Pupil Exam: PERRL - ENT Exam ENT Exam: Mucous Membranes Moist - Respiratory Exam Respiratory Exam: Clear to Ausculation Bilateral, NORMAL BREATHING PATTERN - Cardiovascular Exam Cardiovascular Exam: REGULAR RHYTHM, RRR - GI/Abdominal Exam GI & Abdominal Exam: Soft, Tenderness, Normal Bowel Sounds - Extremities Exam Extremities Exam: Full ROM - Neurological Exam Neurological Exam: Alert, Awake, CN II-XII Intact, Oriented x3 - Psychiatric Exam Psychiatric exam: Agitated. absent: Anxious - Skin Skin Exam: Dry, Intact, Normal Color Assessment and Plan - Assessment and Plan (Free Text) Assessment: 52 year old male with past medical history of polysubstance abuse, alcohol withdrawal, hypertension, hyperlipidemia, chronic pancreatitis, and aortic dissection s/p repair presented with slurring of speech and R sided weakness on admission and was found to have to be hypoglycemic. Patient's symptoms improved after administration of amp of D50. Plan: Alcohol withdrawal -Last CIWA was 1 -Patient dose changed to ativan 1 mg Q4 and ativan 2 mg Q2 PRN -Banana bag has been stopped. Patient started on thiamine, multivitamin, folic acid. -CIWA check Q4, seizure precautions, aspiration precautions -Restraints discontinued -1:1 to be discontinued pending evaluation this afternoon. -Alcohol cessation discussed. -PT reevaluation ordered to follow up recommendations after CIWA scores have reduced. Patient was initially recommended for acute rehabilitation. Right sided weakness -Resolved after administration of D50 amp. Patient has not had similar symptoms since that time. -CTA of brain and CT of brain show no acute intracranial hemorrhage or infarct. -Swallow eval, speech eval -Patient is stable from neurological standpoint as per neurology. Abdominal Tenderness -Patient reports epigastric pain with associated nausea. -Patient has had history of pancreatitis episodes. -Lipase: 590 -Improved AST to 357 and improved ALT to 154. ALP unremarkable at 95 -Abdominal ultrasound: unremarkable common bile duct, pancreas. Liver showed fatty infiltration as increased echogenicity of the liver parenchyma. No mass. No intrahepatic bile duct dilatation. -Due to elevated lipase and clinical symptoms, patient has likely chronic pancreatitis due to repeated episodes of pancreatitis and alcohol history. Increased Liver Enzymes -Improved AST to 357 and improved ALT to 154. ALP unremarkable at 95 -Due to 2:1 ratio, likely alcohol induced. Hypoglycemia -HgbA1c: 4.2 -Random blood glucose: 97 -Resolved Leukocytosis -WBC: 11.2 -Likely reactive leukocytosis. History of hypertension -Last blood pressure was 121/91 -Continue with home metoprolol. History of hyperlipidemia -Continue with home aspirin and lipitor. Polysubstance abuse -Continue with methadone daily Hx of Tobacco Use -Continue with nicotine patch DVT prophylaxis: SCD GI prophylaxis: pepcid 40 mg daily <Felisha Copeland - Last Filed: 07/13/18 06:36> Objective - Vital Signs/Intake and Output Vital Signs (last 24 hours): Temp Pulse Resp BP Pulse Ox 98.1 F 80 20 118/73 95 07/13/18 06:00 07/13/18 06:00 07/13/18 06:00 07/13/18 06:00 07/13/18 06:00 - Medications Medications: Current Medications Aspirin (Aspirin Chewable) 81 mg PO DAILY [facility] Last Admin: 07/12/18 09:02 Dose: 81 mg Atorvastatin Calcium (Lipitor) 40 mg PO DAILY [facility] Last Admin: 07/09/18 09:04 Dose: 40 mg Dextrose (Dextrose 50% Inj) 0 ml IV STAT PRN; Protocol PRN Reason: Hypoglycemia Protocol Famotidine (Pepcid) 40 mg PO HS [facility] Last Admin: 07/12/18 21:00 Dose: 40 mg Folic Acid (Folic Acid) 1 mg PO DAILY [facility] Last Admin: 07/12/18 17:11 Dose: 1 mg Sodium Chloride (Sodium Chloride 0.9%) 1,000 mls @ 100 mls/hr IV .Q10H [facility] Last Admin: 07/12/18 17:17 Dose: 100 mls/hr Dextrose (Dextrose 5% In Water 1000 Ml) 1,000 mls @ 0 mls/hr IV .Q0M PRN; Protocol PRN Reason: Hypoglycemia Protocol Ibuprofen (Motrin Tab) 400 mg PO Q6H PRN PRN Reason: Pain, severe (8-10) Last Admin: 07/09/18 14:59 Dose: 400 mg Lorazepam (Ativan) 2 mg IVP Q2H PRN; Protocol PRN Reason: Symptoms of alcohol withdrawl Last Admin: 07/11/18 14:34 Dose: 2 mg Lorazepam (Ativan) 1 mg IVP Q4H [facility]; Protocol Last Admin: 07/13/18 05:01 Dose: 1 mg Methadone HCl (Methadone) 170 mg PO Q24H [facility] Last Admin: 07/12/18 09:04 Dose: 170 mg Metoprolol Succinate (Toprol Xl) 25 mg PO BRK [facility] Last Admin: 07/12/18 09:02 Dose: 25 mg Multivitamins/Minerals (Therapeutic-M Tab) 1 tab PO 0800 [facility] Last Admin: 07/12/18 17:11 Dose: 1 tab Nicotine (Nicoderm Cq) 1 patch TD DAILY [facility] Last Admin: 07/12/18 09:02 Dose: 1 patch Ondansetron HCl (Zofran Inj) 4 mg IVP Q4H PRN PRN Reason: Nausea/Vomiting Last Admin: 07/10/18 09:18 Dose: 4 mg Thiamine HCl (Vitamin B1 Tab) 100 mg PO DAILY [facility] Last Admin: 07/12/18 17:11 Dose: 100 mg Vitamin D (Vitamin D 400 Intl Units Tab) 400 intlu PO DAILY [facility] Last Admin: 07/12/18 09:02 Dose: 400 intlu - Labs Labs: 07/12/18 06:00 07/12/18 06:00 PT 11.0 SECONDS (9.4-12.5) 07/08/18 21:01 INR 0.97 07/08/18 21:01 APTT 26.1 Seconds (25.1-36.5) 07/08/18 21:01 Attending/Attestation - Attestation I have personally seen and examined this patient.: Yes I have fully participated in the care of the patient.: Yes I have reviewed all pertinent clinical information, including history, physical exam and plan: Yes Notes (Text): 07/12/18 52 year old male with past medical history of alcohol and substance abuse, hypertension, dyslipidemia, chronic pancreatitis and aortic dissection s/p repair who presented with complaint of slurred speech and right sided weakness (now resolved). At the time he was found to have hypoglycemia and alcohol intoxication. CT head, CTA H/N, MRI brain were negative for acute findings. Neurology is following and has signed off. He is on aspirin but not on statin secondary to elevated LFTs. PT evaluation intially recommended acute rehab. However patient's symptoms improved since admission and PT follow up is requested. He is on banana bag and ativan cesar/prn for alcohol withdrawal symptoms. He has been more calm and cooperative today so will discontinue 1:1 and restraints and observe. He was counselled on alcohol cessation. Continue with CIWA protocol. He complained of abdominal pain and nausea which has improved. He is tolerating liquid diet. LFTs are slowly improving. Will continue to monitor and hepatotoxic agents. Abdominal ultrasound showed fatty liver. He is on methadone. Felisha Copeland MD Hospitalist.
[2018-07-12] MEDS: Multivitamin With Minerals Tab PO SCH (17:11)
[2018-07-12] MEDS: Sodium Chloride 0.9% 1,000 ML IV SCH (17:17)
[2018-07-13 06:41] LABS: BASO # 0.02 K/mm3 (0.0-2.0); BASO % 0.2 % (0.0-3.0); EOS # 0.3 (0.0-0.7); EOS % 3.1 % (1.5-5.0); GRAN # 5.11 (1.4-6.5); GRAN % 63.7 % (50.0-68.0); HEMOGLOBIN 11.5 g/dL (14.0-18.0); LYMPH # 1.9 (1.2-3.4); LYMPH % 23.7 % (22.0-35.0); MEAN CELL VOLUME 77.4 fl (80.0-105.0); MEAN CORPUSCULAR HEMOGLOBIN 27.1 pg (25.0-35.0); MEAN PLATELET VOLUME 10.6 fl (7.0-11.0); MONO # 0.8 (0.1-0.6); MONO % 9.3 % (1.0-6.0); RBC 4.25 10^6/uL (3.5-6.1); RED CELL DISTRIBUTION WIDTH 14.7 % (11.5-14.5)
[2018-07-13 08:30] LABS: ALB/GLOB RATIO 1.1 (1.1-1.8); ALBUMIN 3.1 g/dL (3.0-4.8); ALT/SGPT 132 U/L (7-56); AST/SGOT 217 U/L (17-59); BLOOD UREA NITROGEN 9 mg/dL (7-21); CALCIUM 8.8 mg/dL (8.4-10.5); GFR NON-AFRICAN AMERICAN > 60
[2018-07-13] MEDS: Metoprolol Succinate 25 mg XL Tab PO SCH (09:32)
[2018-07-13] MEDS: Multivitamin With Minerals Tab PO SCH (09:34)
[2018-07-13] MEDS: Cholecalciferol 400 Intl Units Tab PO SCH (09:34)
[2018-07-13] MEDS: Sodium Chloride 0.9% 1,000 ML IV SCH ×3 (09:35→21:20)
--- NOTE | 2018-07-13 12:33 | CP.PCM.PN ---
<Luann Mae - Last Filed: 07/13/18 12:26> Subjective - Date & Time of Evaluation Date of Evaluation: 07/13/18 Time of Evaluation: 12:26 - Subjective Subjective: Luann Mae, PGY-1, Internal Medicine Progress Note for Dr. Copeland Patient seen and evaluated at bedside. Patient had no acute overnight events. Patient's CIWA score was 0. Patient reported having history of alcohol withdrawal and continues to complain of abdominal tenderness. He reports nonbloody vomitus but nurse denied that he had had vomitus episode. Patient reports diffuse pain throughout his body and mild shortness of breath. Patient denies dysuria and hematuria. 12-point ROS was negative except for what was mentioned above. Objective - Vital Signs/Intake and Output Vital Signs (last 24 hours): Temp Pulse Resp BP Pulse Ox 98.1 F 92 H 20 118/73 95 07/13/18 06:00 07/13/18 09:32 07/13/18 06:00 07/13/18 06:00 07/13/18 06:00 Intake and Output: 07/13/18 07/13/18 06:59 18:59 Intake Total 600 Balance 600 - Medications Medications: Current Medications Aspirin (Aspirin Chewable) 81 mg PO DAILY [facility] Last Admin: 07/13/18 09:32 Dose: 81 mg Atorvastatin Calcium (Lipitor) 40 mg PO DAILY [facility] Last Admin: 07/09/18 09:04 Dose: 40 mg Dextrose (Dextrose 50% Inj) 0 ml IV STAT PRN; Protocol PRN Reason: Hypoglycemia Protocol Famotidine (Pepcid) 40 mg PO HS [facility] Last Admin: 07/12/18 21:00 Dose: 40 mg Folic Acid (Folic Acid) 1 mg PO DAILY [facility] Last Admin: 07/13/18 09:31 Dose: 1 mg Sodium Chloride (Sodium Chloride 0.9%) 1,000 mls @ 100 mls/hr IV .Q10H [facility] Last Admin: 07/13/18 09:35 Dose: 100 mls/hr Dextrose (Dextrose 5% In Water 1000 Ml) 1,000 mls @ 0 mls/hr IV .Q0M PRN; Protocol PRN Reason: Hypoglycemia Protocol Ibuprofen (Motrin Tab) 400 mg PO Q6H PRN PRN Reason: Pain, severe (8-10) Last Admin: 07/09/18 14:59 Dose: 400 mg Lorazepam (Ativan) 0.5 mg IVP Q4H [facility]; Protocol Lorazepam (Ativan) 1 mg IVP Q2H PRN; Protocol PRN Reason: Symptoms of alcohol withdrawl Methadone HCl (Methadone) 170 mg PO Q24H [facility] Last Admin: 07/13/18 09:29 Dose: 170 mg Metoprolol Succinate (Toprol Xl) 25 mg PO BRK [facility] Last Admin: 07/13/18 09:32 Dose: 25 mg Multivitamins/Minerals (Therapeutic-M Tab) 1 tab PO 0800 [facility] Last Admin: 07/13/18 09:34 Dose: 1 tab Nicotine (Nicoderm Cq) 1 patch TD DAILY [facility] Last Admin: 07/13/18 09:37 Dose: 1 patch Ondansetron HCl (Zofran Inj) 4 mg IVP Q4H PRN PRN Reason: Nausea/Vomiting Last Admin: 07/10/18 09:18 Dose: 4 mg Thiamine HCl (Vitamin B1 Tab) 100 mg PO DAILY [facility] Last Admin: 07/13/18 09:36 Dose: 100 mg Vitamin D (Vitamin D 400 Intl Units Tab) 400 intlu PO DAILY [facility] Last Admin: 07/13/18 09:34 Dose: 400 intlu - Labs Labs: 07/13/18 06:00 07/13/18 07:45 PT 11.0 SECONDS (9.4-12.5) 07/08/18 21:01 INR 0.97 07/08/18 21:01 APTT 26.1 Seconds (25.1-36.5) 07/08/18 21:01 - Constitutional Appears: Well, Non-toxic, No Acute Distress - Head Exam Head Exam: ATRAUMATIC, NORMAL INSPECTION, NORMOCEPHALIC - Eye Exam Eye Exam: EOMI - Neck Exam Neck Exam: Full ROM - Respiratory Exam Respiratory Exam: Clear to Ausculation Bilateral - Cardiovascular Exam Cardiovascular Exam: REGULAR RHYTHM, RRR - GI/Abdominal Exam GI & Abdominal Exam: Soft, Tenderness, Normal Bowel Sounds - Extremities Exam Extremities Exam: Full ROM - Back Exam Back Exam: absent: CVA tenderness (L), CVA tenderness (R) - Neurological Exam Neurological Exam: Alert, Awake, CN II-XII Intact - Skin Skin Exam: Dry, Intact Assessment and Plan - Assessment and Plan (Free Text) Assessment: 52 year old male with past medical history of polysubstance abuse, alcohol withdrawal, hypertension, hyperlipidemia, chronic pancreatitis, and aortic dissection s/p repair presented with slurring of speech and R sided weakness on admission and was found to have to be hypoglycemic. Patient's symptoms improved after administration of amp of D50. Plan: Alcohol withdrawal -Last CIWA was 0 -Patient dose changed to ativan 0.5 mg Q4 and ativan 1 mg Q2 PRN -Banana bag has been stopped. Patient started on thiamine, multivitamin, folic acid. -CIWA check Q4, seizure precautions, aspiration precautions -OOB as tolerated -Restraints discontinued -1:1 discontinued -Alcohol cessation discussed. -PT reevaluation ordered to follow up recommendations. Patient was initially recommended for acute rehabilitation. Right sided weakness -Resolved after administration of D50 amp. Patient has not had similar symptoms since that time. -CTA of brain and CT of brain show no acute intracranial hemorrhage or infarct. -Swallow eval, speech eval -Patient is stable from neurological standpoint as per neurology. Abdominal Tenderness -Patient reports epigastric pain with associated nausea. -Patient has had history of pancreatitis episodes. -Lipase: 590 -Improved AST to 217 and improved ALT to 132 ALP unremarkable at 75 -Abdominal ultrasound: unremarkable common bile duct, pancreas. Liver showed fatty infiltration as increased echogenicity of the liver parenchyma. No mass. No intrahepatic bile duct dilatation. -Due to elevated lipase and clinical symptoms, patient has likely chronic pancreatitis due to repeated episodes of pancreatitis and alcohol history. Increased Liver Enzymes -Improved AST to 217 and improved ALT to 132 ALP unremarkable at 75 -Ratio was 2:1 ratio yesterday, likely alcohol induced. Hypoglycemia -HgbA1c: 4.2 -Random blood glucose: 137 -Resolved Leukocytosis-resolved -WBC: 8 -Likely reactive leukocytosis. History of hypertension -Last blood pressure was 118/73 with HR of 80 -Continue with home metoprolol. -Soft heart healthy diet ordered History of hyperlipidemia -Continue with home aspirin. Lipitor held due to LFTs. History of Vitamin D Deficiency -Continue with cholecalciferol. Polysubstance abuse -Continue with methadone daily Hx of Tobacco Use -Continue with nicotine patch DVT prophylaxis: SCD GI prophylaxis: pepcid 40 mg daily Patient plan discussed with Dr. Copeland <Min,Anwar A - Last Filed: 07/13/18 17:29> Objective - Vital Signs/Intake and Output Vital Signs (last 24 hours): Temp Pulse Resp BP Pulse Ox 97 F L 82 19 125/81 95 07/13/18 12:00 07/13/18 14:00 07/13/18 12:00 07/13/18 12:00 07/13/18 06:00 Intake and Output: 07/13/18 07/13/18 06:59 18:59 Intake Total 600 Balance 600 - Medications Medications: Current Medications Aspirin (Aspirin Chewable) 81 mg PO DAILY [facility] Last Admin: 07/13/18 09:32 Dose: 81 mg Atorvastatin Calcium (Lipitor) 40 mg PO DAILY [facility] Last Admin: 07/09/18 09:04 Dose: 40 mg Dextrose (Dextrose 50% Inj) 0 ml IV STAT PRN; Protocol PRN Reason: Hypoglycemia Protocol Famotidine (Pepcid) 40 mg PO HS [facility] Last Admin: 07/12/18 21:00 Dose: 40 mg Folic Acid (Folic Acid) 1 mg PO DAILY [facility] Last Admin: 07/13/18 09:31 Dose: 1 mg Sodium Chloride (Sodium Chloride 0.9%) 1,000 mls @ 100 mls/hr IV .Q10H [facility] Last Admin: 07/13/18 14:35 Dose: 100 mls/hr Dextrose (Dextrose 5% In Water 1000 Ml) 1,000 mls @ 0 mls/hr IV .Q0M PRN; Protocol PRN Reason: Hypoglycemia Protocol Ibuprofen (Motrin Tab) 400 mg PO Q6H PRN PRN Reason: Pain, severe (8-10) Last Admin: 07/09/18 14:59 Dose: 400 mg Lorazepam (Ativan) 0.5 mg IVP Q4H [facility]; Protocol Last Admin: 07/13/18 15:40 Dose: Not Given Lorazepam (Ativan) 1 mg IVP Q2H PRN; Protocol PRN Reason: Symptoms of alcohol withdrawl Methadone HCl (Methadone) 170 mg PO Q24H [facility] Last Admin: 07/13/18 09:29 Dose: 170 mg Metoprolol Succinate (Toprol Xl) 25 mg PO BRK [facility] Last Admin: 07/13/18 09:32 Dose: 25 mg Multivitamins/Minerals (Therapeutic-M Tab) 1 tab PO 0800 [facility] Last Admin: 07/13/18 09:34 Dose: 1 tab Nicotine (Nicoderm Cq) 1 patch TD DAILY [facility] Last Admin: 07/13/18 09:37 Dose: 1 patch Ondansetron HCl (Zofran Inj) 4 mg IVP Q4H PRN PRN Reason: Nausea/Vomiting Last Admin: 07/10/18 09:18 Dose: 4 mg Thiamine HCl (Vitamin B1 Tab) 100 mg PO DAILY [facility] Last Admin: 07/13/18 09:36 Dose: 100 mg Vitamin D (Vitamin D 400 Intl Units Tab) 400 intlu PO DAILY [facility] Last Admin: 07/13/18 09:34 Dose: 400 intlu - Labs Labs: 07/13/18 06:00 07/13/18 07:45 PT 11.0 SECONDS (9.4-12.5) 07/08/18 21:01 INR 0.97 07/08/18 21:01 APTT 26.1 Seconds (25.1-36.5) 07/08/18 21:01 Attending/Attestation - Attestation I have personally seen and examined this patient.: Yes I have fully participated in the care of the patient.: Yes I have reviewed all pertinent clinical information, including history, physical exam and plan: Yes Notes (Text): 07/13/18 17:27 52 year old male with past medical history of alcohol and substance abuse, hypertension, dyslipidemia, chronic pancreatitis and aortic dissection s/p repair who presented with complaint of slurred speech and right sided weakness (now resolved). At the time he was found to have hypoglycemia and alcohol intoxication. CT head, CTA H/N, MRI brain were negative for acute findings. Neurology is following and has signed off. He is on aspirin but not on statin secondary to elevated LFTs. PT evaluation intially recommended acute rehab. PT follow up today was appreciated; now recommended ANTOINETTE. He is on banana bag and ativan sana/prn for alcohol withdrawal symptoms. Will continue with ativan taper as tolerated. He was counselled on alcohol cessation. Continue with CIWA protocol. He complained of abdominal pain and nausea which has improved. He is tolerating liquid diet. Will advance to solids today. LFTs are slowly improving. Will continue to monitor and hepatotoxic agents. Abdominal ultrasound showed fatty liver. He is on methadone. Felisha Copeland MD Hospitalist.
[2018-07-14] MEDS: Sodium Chloride 0.9% 1,000 ML IV SCH ×3 (05:10→15:20)
[2018-07-14 08:06] LABS: BASO # 0.02 K/mm3 (0.0-2.0); BASO % 0.3 % (0.0-3.0); EOS # 0.2 (0.0-0.7); EOS % 3.1 % (1.5-5.0); GRAN # 3.78 (1.4-6.5); GRAN % 55.4 % (50.0-68.0); HEMOGLOBIN 11.4 g/dL (14.0-18.0); LYMPH # 2.2 (1.2-3.4); LYMPH % 31.8 % (22.0-35.0); MEAN CELL VOLUME 78.5 fl (80.0-105.0); MEAN CORPUSCULAR HEMOGLOBIN 26.3 pg (25.0-35.0); MEAN CORPUSCULAR HGB CONC 33.5 g/dl (31.0-37.0); MONO # 0.6 (0.1-0.6); MONO % 9.4 % (1.0-6.0); RBC 4.33 10^6/uL (3.5-6.1); RED CELL DISTRIBUTION WIDTH 14.6 % (11.5-14.5); WHITE BLOOD COUNT 6.8 10^3/uL (4.5-11.0)
[2018-07-14] MEDS: Multivitamin With Minerals Tab PO SCH (08:14)
[2018-07-14] MEDS: Metoprolol Succinate 25 mg XL Tab PO SCH (08:24)
[2018-07-14 08:35] LABS: ALBUMIN 3.2 g/dL (3.0-4.8); ALT/SGPT 113 U/L (7-56); AST/SGOT 153 U/L (17-59); BLOOD UREA NITROGEN 9 mg/dL (7-21); CALCIUM 8.7 mg/dL (8.4-10.5); GFR NON-AFRICAN AMERICAN > 60
[2018-07-14] MEDS: Cholecalciferol 400 Intl Units Tab PO SCH (10:09)
--- NOTE | 2018-07-14 13:14 | CP.PCM.PN ---
<Luann Mae - Last Filed: 07/14/18 13:06> Subjective - Date & Time of Evaluation Date of Evaluation: 07/14/18 Time of Evaluation: 13:06 - Subjective Subjective: Luann Mae, PGY-1, Internal Medicine Progress Note for Dr. Copeland Patient seen and evaluated at bedside. Patient had no acute overnight events. Patient's CIWA score was 0. Patient reported having history of alcohol withdrawal and continues to complain of abdominal tenderness. He reports nausea but was able to tolerate eating a sandwich this morning. Patient reports diffuse pain throughout his body. Patient denies dysuria and hematuria. 12-point ROS was negative except for what was mentioned above. Objective - Vital Signs/Intake and Output Vital Signs (last 24 hours): Temp Pulse Resp BP Pulse Ox 97.7 F 88 20 125/87 98 07/14/18 06:00 07/14/18 08:24 07/14/18 06:00 07/14/18 08:24 07/14/18 06:00 Intake and Output: 07/14/18 07/14/18 06:59 18:59 Intake Total 600 Output Total 1100 Balance -500 - Medications Medications: Current Medications Aspirin (Aspirin Chewable) 81 mg PO DAILY [facility] Last Admin: 07/14/18 10:08 Dose: 81 mg Atorvastatin Calcium (Lipitor) 40 mg PO DAILY [facility] Last Admin: 07/09/18 09:04 Dose: 40 mg Dextrose (Dextrose 50% Inj) 0 ml IV STAT PRN; Protocol PRN Reason: Hypoglycemia Protocol Famotidine (Pepcid) 40 mg PO HS [facility] Last Admin: 07/13/18 21:02 Dose: 40 mg Folic Acid (Folic Acid) 1 mg PO DAILY [facility] Last Admin: 07/14/18 10:09 Dose: 1 mg Sodium Chloride (Sodium Chloride 0.9%) 1,000 mls @ 100 mls/hr IV .Q10H [facility] Last Admin: 07/14/18 07:14 Dose: 100 mls/hr Dextrose (Dextrose 5% In Water 1000 Ml) 1,000 mls @ 0 mls/hr IV .Q0M PRN; Prot ocol PRN Reason: Hypoglycemia Protocol Ibuprofen (Motrin Tab) 400 mg PO Q6H PRN PRN Reason: Pain, severe (8-10) Last Admin: 07/14/18 08:13 Dose: 400 mg Lorazepam (Ativan) 1 mg IVP Q2H PRN; Protocol PRN Reason: Symptoms of alcohol withdrawl Lorazepam (Ativan) 0.5 mg IVP Q6H [facility]; Protocol Last Admin: 07/14/18 10:08 Dose: 0.5 mg Methadone HCl (Methadone) 170 mg PO Q24H [facility] Last Admin: 07/14/18 08:12 Dose: 170 mg Metoprolol Succinate (Toprol Xl) 25 mg PO BRK [facility] Last Admin: 07/14/18 08:24 Dose: 25 mg Multivitamins/Minerals (Therapeutic-M Tab) 1 tab PO 0800 [facility] Last Admin: 07/14/18 08:14 Dose: 1 tab Nicotine (Nicoderm Cq) 1 patch TD DAILY [facility] Last Admin: 07/14/18 10:09 Dose: 1 patch Ondansetron HCl (Zofran Inj) 4 mg IVP Q4H PRN PRN Reason: Nausea/Vomiting Last Admin: 07/14/18 10:10 Dose: 4 mg Thiamine HCl (Vitamin B1 Tab) 100 mg PO DAILY [facility] Last Admin: 07/14/18 10:09 Dose: 100 mg Vitamin D (Vitamin D 400 Intl Units Tab) 400 intlu PO DAILY [facility] Last Admin: 07/14/18 10:09 Dose: 400 intlu - Labs Labs: 07/14/18 07:00 07/14/18 07:00 PT 11.0 SECONDS (9.4-12.5) 07/08/18 21:01 INR 0.97 07/08/18 21:01 APTT 26.1 Seconds (25.1-36.5) 07/08/18 21:01 - Constitutional Appears: Well, Non-toxic, No Acute Distress - Head Exam Head Exam: ATRAUMATIC, NORMAL INSPECTION, NORMOCEPHALIC - Eye Exam Eye Exam: EOMI Pupil Exam: PERRL - Neck Exam Neck Exam: Full ROM - Respiratory Exam Respiratory Exam: Clear to Ausculation Bilateral, NORMAL BREATHING PATTERN - Cardiovascular Exam Cardiovascular Exam: REGULAR RHYTHM - GI/Abdominal Exam GI & Abdominal Exam: Soft, Tenderness, Normal Bowel Sounds - Extremities Exam Extremities Exam: Full ROM - Neurological Exam Neurological Exam: Alert, Awake, CN II-XII Intact, Oriented x3 - Psychiatric Exam Psychiatric exam: Normal Affect, Normal Mood Assessment and Plan - Assessment and Plan (Free Text) Assessment: 52 year old male with past medical history of polysubstance abuse, alcohol withdrawal, hypertension, hyperlipidemia, chronic pancreatitis, and aortic dissection s/p repair presented with slurring of speech and R sided weakness on admission and was found to have to be hypoglycemic. Patient's symptoms improved after administration of amp of D50. Plan: Alcohol withdrawal -Last CIWA was 0 -Patient dose changed to ativan 0.5 mg Q6 and ativan 1 mg Q2 PRN -Patient continued on thiamine, multivitamin, folic acid. -CIWA check Q4, seizure precautions, aspiration precautions -OOB as tolerated -Restraints discontinued -1:1 discontinued -Alcohol cessation discussed. -PT reevaluation ordered to follow up recommendations. Patient was initially recommended for acute rehabilitation. Right sided weakness -Resolved after administration of D50 amp. Patient has not had similar symptoms since that time. -CTA of brain and CT of brain show no acute intracranial hemorrhage or infarct. -Swallow eval, speech eval -Patient is stable from neurological standpoint as per neurology. Abdominal Tenderness -Patient reports epigastric pain with associated nausea. -Patient has had history of pancreatitis episodes. -Lipase: 590 -Improved AST to 153 and improved ALT to 113 ALP unremarkable at 77 -Abdominal ultrasound: unremarkable common bile duct, pancreas. Liver showed fatty infiltration as increased echogenicity of the liver parenchyma. No mass. No intrahepatic bile duct dilatation. -Due to elevated lipase and clinical symptoms, patient has likely chronic pancreatitis due to repeated episodes of pancreatitis and alcohol history. -Consider creon. Increased Liver Enzymes -Improved AST to 153 and improved ALT to 113 ALP unremarkable at 77 -Ratio was 2:1 ratio two days ago, likely alcohol induced vs. due to lipitor side effect. Hypoglycemia -HgbA1c: 4.2 -Random blood glucose: 114 -Resolved Leukocytosis-resolved -WBC: 6.8 -Likely reactive leukocytosis. History of hypertension -Last blood pressure was 125/87 with HR: 88 -Continue with home metoprolol. -Soft heart healthy diet ordered History of hyperlipidemia -Continue with home aspirin. Lipitor held due to LFTs. History of Vitamin D Deficiency -Continue with cholecalciferol. Polysubstance abuse -Continue with methadone daily Hx of Tobacco Use -Continue with nicotine patch DVT prophylaxis: SCD GI prophylaxis: pepcid 40 mg daily Disposition: awaiting PT reevaluation prior to discharge to home Patient plan discussed with Dr. Copeland <Felisha Copeland - Last Filed: 07/15/18 06:24> Objective - Vital Signs/Intake and Output Vital Signs (last 24 hours): Temp Pulse Resp BP Pulse Ox 97.9 F 67 20 139/77 96 07/15/18 00:01 07/15/18 06:00 07/15/18 00:01 07/15/18 00:01 07/15/18 00:01 Intake and Output: 07/14/18 07/15/18 18:59 06:59 Intake Total 1000 Output Total 1200 Balance -200 - Medications Medications: Current Medications Aspirin (Aspirin Chewable) 81 mg PO DAILY [facility] Last Admin: 07/14/18 10:08 Dose: 81 mg Atorvastatin Calcium (Lipitor) 40 mg PO DAILY [facility] Last Admin: 07/09/18 09:04 Dose: 40 mg Dextrose (Dextrose 50% Inj) 0 ml IV STAT PRN; Protocol PRN Reason: Hypoglycemia Protocol Famotidine (Pepcid) 40 mg PO HS [facility] Last Admin: 07/14/18 21:05 Dose: 40 mg Folic Acid (Folic Acid) 1 mg PO DAILY [facility] Last Admin: 07/14/18 10:09 Dose: 1 mg Sodium Chloride (Sodium Chloride 0.9%) 1,000 mls @ 100 mls/hr IV .Q10H [facility] Last Admin: 07/15/18 06:11 Dose: Not Given Dextrose (Dextrose 5% In Water 1000 Ml) 1,000 mls @ 0 mls/hr IV .Q0M PRN; Protocol PRN Reason: Hypoglycemia Protocol Ibuprofen (Motrin Tab) 400 mg PO Q6H PRN PRN Reason: Pain, severe (8-10) Last Admin: 07/14/18 21:05 Dose: 400 mg Lorazepam (Ativan) 1 mg IVP Q2H PRN; Protocol PRN Reason: Symptoms of alcohol withdrawl Lorazepam (Ativan) 0.5 mg IVP Q6H [facility]; Protocol Last Admin: 07/15/18 04:02 Dose: 0.5 mg Methadone HCl (Methadone) 170 mg PO Q24H [facility] Last Admin: 07/14/18 08:12 Dose: 170 mg Metoprolol Succinate (Toprol Xl) 25 mg PO BRK [facility] Last Admin: 07/14/18 08:24 Dose: 25 mg Multivitamins/Minerals (Therapeutic-M Tab) 1 tab PO 0800 [facility] Last Admin: 07/14/18 08:14 Dose: 1 tab Nicotine (Nicoderm Cq) 1 patch TD DAILY [facility] Last Admin: 07/14/18 10:09 Dose: 1 patch Ondansetron HCl (Zofran Inj) 4 mg IVP Q4H PRN PRN Reason: Nausea/Vomiting Last Admin: 07/14/18 21:05 Dose: 4 mg Thiamine HCl (Vitamin B1 Tab) 100 mg PO DAILY [facility] Last Admin: 07/14/18 10:09 Dose: 100 mg Vitamin D (Vitamin D 400 Intl Units Tab) 400 intlu PO DAILY [facility] Last Admin: 07/14/18 10:09 Dose: 400 intlu - Labs Labs: 07/14/18 07:00 07/14/18 07:00 PT 11.0 SECONDS (9.4-12.5) 07/08/18 21:01 INR 0.97 07/08/18 21:01 APTT 26.1 Seconds (25.1-36.5) 07/08/18 21:01 Attending/Attestation - Attestation I have personally seen and examined this patient.: Yes I have fully participated in the care of the patient.: Yes I have reviewed all pertinent clinical information, including history, physical exam and plan: Yes Notes (Text): 07/14/18 52 year old male with past medical history of alcohol and substance abuse, hypertension, dyslipidemia, chronic pancreatitis and aortic dissection s/p repair who presented with complaint of slurred speech and right sided weakness (now resolved). At the time he was found to have hypoglycemia and alcohol intoxication. CT head, CTA H/N, MRI brain were negative for acute findings. Neurology has seen the patient and has signed off. He is on aspirin but not on statin secondary to elevated LFTs. PT is currently recommended ANTOINETTE. Will follow up with SW/CMx tomorrow. He is s/p banana bag and tapering ativan sana/prn for alcohol withdrawal symptoms which have improved. He was counselled on alcohol cessation. Continue with CIWA protocol. He complained of abdominal pain and nausea which has improved, likely secondary to chronic pancreatitis. He is tolerating diet. LFTs are slowly improving. Will continue to monitor and hepatotoxic agents. Abdominal ultrasound showed fatty liver. He is on methadone. Felisha Copeland MD Hospitalist.
[2018-07-15] MEDS: Sodium Chloride 0.9% 1,000 ML IV SCH (06:11)
[2018-07-15 06:36] VITALS: RESP 18; O2SAT 99
[2018-07-15 07:33] LABS: BASO # 0.02 K/mm3 (0.0-2.0); BASO % 0.4 % (0.0-3.0); EOS # 0.2 (0.0-0.7); EOS % 3.8 % (1.5-5.0); GRAN # 2.72 (1.4-6.5); GRAN % 48.5 % (50.0-68.0); LYMPH # 1.8 (1.2-3.4); LYMPH % 32.7 % (22.0-35.0); MEAN CELL VOLUME 77.9 fl (80.0-105.0); MEAN CORPUSCULAR HEMOGLOBIN 26.7 pg (25.0-35.0); MEAN CORPUSCULAR HGB CONC 34.3 g/dl (31.0-37.0); MEAN PLATELET VOLUME 11.3 fl (7.0-11.0); MONO # 0.8 (0.1-0.6); MONO % 14.6 % (1.0-6.0); RBC 4.12 10^6/uL (3.5-6.1); RED CELL DISTRIBUTION WIDTH 14.5 % (11.5-14.5); WHITE BLOOD COUNT 5.6 10^3/uL (4.5-11.0)
[2018-07-15 08:23] LABS: ALBUMIN 3.2 g/dL (3.0-4.8); ALT/SGPT 100 U/L (7-56); AST/SGOT 105 U/L (17-59); BLOOD UREA NITROGEN 9 mg/dL (7-21); CALCIUM 9.2 mg/dL (8.4-10.5); GFR NON-AFRICAN AMERICAN > 60
[2018-07-15] MEDS: Metoprolol Succinate 25 mg XL Tab PO SCH (08:25)
[2018-07-15] MEDS: Multivitamin With Minerals Tab PO SCH (08:25)
[2018-07-15] MEDS: Cholecalciferol 400 Intl Units Tab PO SCH (09:44)
[2018-07-15 12:33] VITALS: BP 154/90; PULSE 69; TEMP 97.9
--- NOTE | 2018-07-15 13:21 | CP.PCM.PN ---
<Luann Mae - Last Filed: 07/15/18 13:18> Subjective - Date & Time of Evaluation Date of Evaluation: 07/15/18 Time of Evaluation: 13:18 - Subjective Subjective: Luann Mae, PGY-1, Internal Medicine Progress Note for Dr. Copeland Patient seen and evaluated at bedside. Patient had no acute overnight events. Patient's CIWA score was 0. Patient continues to complain of abdominal pain and nausea, He is tolerating food well at this time. Patient reports diffuse pain throughout his body and mild shortness of breath. Patient denies dysuria and hematuria. 12-point ROS was negative except for what was mentioned above. Objective - Vital Signs/Intake and Output Vital Signs (last 24 hours): Temp Pulse Resp BP Pulse Ox 97.9 F 69 18 154/90 H 99 07/15/18 12:00 07/15/18 12:00 07/15/18 12:00 07/15/18 12:00 07/15/18 06:00 Intake and Output: 07/15/18 07/15/18 06:59 18:59 Intake Total 1000 Output Total 1200 Balance -200 - Medications Medications: Current Medications Aspirin (Aspirin Chewable) 81 mg PO DAILY PENDING SALE TO [facility] Last Admin: 07/15/18 09:42 Dose: 81 mg Atorvastatin Calcium (Lipitor) 40 mg PO DAILY [facility]ENDING [facility] TO [facility] Last Admin: 07/09/18 09:04 Dose: 40 mg Dextrose (Dextrose 50% Inj) 0 ml IV STAT PRN; Protocol PRN Reason: Hypoglycemia Protocol Famotidine (Pepcid) 40 mg PO HS PENDING SALE TO [facility] Last Admin: 07/14/18 21:05 Dose: 40 mg Folic Acid (Folic Acid) 1 mg PO DAILY PENDING SALE TO [facility] Last Admin: 07/15/18 09:42 Dose: 1 mg Sodium Chloride (Sodium Chloride 0.9%) 1,000 mls @ 100 mls/hr IV .Q10H PENDING SALE TO [facility] Last Admin: 07/15/18 06:11 Dose: Not Given Dextrose (Dextrose 5% In Water 1000 Ml) 1,000 mls @ 0 mls/hr IV .Q0M PRN; Protocol PRN Reason: Hypoglycemia Protocol Ibuprofen (Motrin Tab) 400 mg PO Q6H PRN PRN Reason: Pain, severe (8-10) Last Admin: 07/14/18 21:05 Dose: 400 mg Lorazepam (Ativan) 1 mg IVP Q2H PRN; Protocol PRN Reason: Symptoms of alcohol withdrawl Lorazepam (Ativan) 0.5 mg IVP Q8 PENDING SALE TO [facility]; Protocol Methadone HCl (Methadone) 170 mg PO Q24H PENDING SALE TO [facility] Last Admin: 07/15/18 09:42 Dose: 170 mg Metoprolol Succinate (Toprol Xl) 25 mg PO BRK PENDING SALE TO [facility] Last Admin: 07/15/18 08:25 Dose: 25 mg Multivitamins/Minerals (Therapeutic-M Tab) 1 tab PO 0800 PENDING SALE TO [facility] Last Admin: 07/15/18 08:25 Dose: 1 tab Nicotine (Nicoderm Cq) 1 patch TD DAILY PENDING SALE TO [facility] Last Admin: 07/15/18 09:44 Dose: 1 patch Ondansetron HCl (Zofran Inj) 4 mg IVP Q4H PRN PRN Reason: Nausea/Vomiting Last Admin: 07/14/18 21:05 Dose: 4 mg Thiamine HCl (Vitamin B1 Tab) 100 mg PO DAILY PENDING SALE TO [facility] Last Admin: 07/15/18 09:42 Dose: 100 mg Vitamin D (Vitamin D 400 Intl Units Tab) 400 intlu PO DAILY PENDING SALE TO [facility] Last Admin: 07/15/18 09:44 Dose: 400 intlu - Labs Labs: 07/15/18 06:30 07/15/18 06:30 PT 11.0 SECONDS (9.4-12.5) 07/08/18 21:01 INR 0.97 07/08/18 21:01 APTT 26.1 Seconds (25.1-36.5) 07/08/18 21:01 - Constitutional Appears: Well, Non-toxic, No Acute Distress - Head Exam Head Exam: ATRAUMATIC, NORMAL INSPECTION, NORMOCEPHALIC - Eye Exam Eye Exam: EOMI Pupil Exam: PERRL - Respiratory Exam Respiratory Exam: Clear to Ausculation Bilateral, NORMAL BREATHING PATTERN - Cardiovascular Exam Cardiovascular Exam: REGULAR RHYTHM, RRR - GI/Abdominal Exam GI & Abdominal Exam: Soft, Tenderness, Normal Bowel Sounds - Extremities Exam Extremities Exam: Full ROM - Neurological Exam Neurological Exam: Alert, Awake, CN II-XII Intact, Oriented x3 Neuro motor strength exam: Left Upper Extremity: 5, Right Upper Extremity: 5, Left Lower Extremity: 5, Right Lower Extremity: 5 Assessment and Plan - Assessment and Plan (Free Text) Assessment: 52 year old male with past medical history of polysubstance abuse, alcohol withdrawal, hypertension, hyperlipidemia, chronic pancreatitis, and aortic dissection s/p repair presented with slurring of speech and R sided weakness on admission and was found to have to be hypoglycemic. Patient's symptoms improved after administration of amp of D50. Plan: Alcohol withdrawal -Last CIWA was 0 -Patient dose changed to ativan 0.5 mg Q8 and ativan 1 mg Q2 PRN -Banana bag has been stopped. Patient started on thiamine, multivitamin, folic acid. -CIWA check Q4, seizure precautions, aspiration precautions -OOB as tolerated -Restraints discontinued -1:1 discontinued -Alcohol cessation discussed. -PT reevaluation ordered to follow up recommendations. Patient was initially recommended for acute rehabilitation. Right sided weakness -Resolved after administration of D50 amp. Patient has not had similar symptoms since that time. -CTA of brain and CT of brain show no acute intracranial hemorrhage or infarct. -Swallow eval, speech eval -Patient is stable from neurological standpoint as per neurology. Abdominal Tenderness -Patient reports epigastric pain with associated nausea. -Patient has had history of pancreatitis episodes. -Lipase: 590 -Improved AST to 105 and improved ALT to 100 ALP unremarkable at 75 -Abdominal ultrasound: unremarkable common bile duct, pancreas. Liver showed fatty infiltration as increased echogenicity of the liver parenchyma. No mass. No intrahepatic bile duct dilatation. -Due to elevated lipase and clinical symptoms, patient has likely chronic pancreatitis due to repeated episodes of pancreatitis and alcohol history. Increased Liver Enzymes -Improved AST to 105 and improved ALT to 100 ALP unremarkable at 75 -Ratio was 2:1 ratio two days ago. Most likely alcohol induced. Hypoglycemia -HgbA1c: 4.2 -Random blood glucose: 103 -Resolved Leukocytosis-resolved -WBC: 5.6 -Likely reactive leukocytosis. History of hypertension -Last blood pressure was 154/90 with HR of 69 -Continue with home metoprolol. -Soft heart healthy diet ordered History of hyperlipidemia -Continue with home aspirin. Lipitor held due to LFTs. History of Vitamin D Deficiency -Continue with cholecalciferol. Polysubstance abuse -Continue with methadone daily Hx of Tobacco Use -Continue with nicotine patch DVT prophylaxis: SCD GI prophylaxis: pepcid 40 mg daily Patient plan discussed with Dr. Copeland <Felisha Copeland - Last Filed: 07/15/18 13:49> Objective - Vital Signs/Intake and Output Vital Signs (last 24 hours): Temp Pulse Resp BP Pulse Ox 97.9 F 69 18 154/90 H 99 07/15/18 12:00 07/15/18 12:00 07/15/18 12:00 07/15/18 12:00 07/15/18 06:00 Intake and Output: 07/15/18 07/15/18 06:59 18:59 Intake Total 1000 Output Total 1200 Balance -200 - Medications Medications: Current Medications Aspirin (Aspirin Chewable) 81 mg PO DAILY PENDING SALE TO [facility] Last Admin: 07/15/18 09:42 Dose: 81 mg Atorvastatin Calcium (Lipitor) 40 mg PO DAILY PENDING SALE TO [facility] Last Admin: 07/09/18 09:04 Dose: 40 mg Dextrose (Dextrose 50% Inj) 0 ml IV STAT PRN; Protocol PRN Reason: Hypoglycemia Protocol Famotidine (Pepcid) 40 mg PO HS PENDING SALE TO [facility] Last Admin: 07/14/18 21:05 Dose: 40 mg Folic Acid (Folic Acid) 1 mg PO DAILY PENDING SALE TO [facility] Last Admin: 07/15/18 09:42 Dose: 1 mg Sodium Chloride (Sodium Chloride 0.9%) 1,000 mls @ 100 mls/hr IV .Q10H PENDING SALE TO [facility] Last Admin: 07/15/18 06:11 Dose: Not Given Dextrose (Dextrose 5% In Water 1000 Ml) 1,000 mls @ 0 mls/hr IV .Q0M PRN; Protocol PRN Reason: Hypoglycemia Protocol Ibuprofen (Motrin Tab) 400 mg PO Q6H PRN PRN Reason: Pain, severe (8-10) Last Admin: 07/14/18 21:05 Dose: 400 mg Lorazepam (Ativan) 1 mg IVP Q2H PRN; Protocol PRN Reason: Symptoms of alcohol withdrawl Lorazepam (Ativan) 0.5 mg IVP Q8 PENDING SALE TO [facility]; Protocol Methadone HCl (Methadone) 170 mg PO Q24H PENDING SALE TO [facility] Last Admin: 07/15/18 09:42 Dose: 170 mg Metoprolol Succinate (Toprol Xl) 25 mg PO BRK PENDING SALE TO [facility] Last Admin: 07/15/18 08:25 Dose: 25 mg Multivitamins/Minerals (Therapeutic-M Tab) 1 tab PO 0800 PENDING SALE TO [facility] Last Admin: 07/15/18 08:25 Dose: 1 tab Nicotine (Nicoderm Cq) 1 patch TD DAILY PENDING SALE TO [facility] Last Admin: 07/15/18 09:44 Dose: 1 patch Ondansetron HCl (Zofran Inj) 4 mg IVP Q4H PRN PRN Reason: Nausea/Vomiting Last Admin: 07/14/18 21:05 Dose: 4 mg Thiamine HCl (Vitamin B1 Tab) 100 mg PO DAILY [facility] Last Admin: 07/15/18 09:42 Dose: 100 mg Vitamin D (Vitamin D 400 Intl Units Tab) 400 intlu PO DAILY [facility] Last Admin: 07/15/18 09:44 Dose: 400 intlu - Labs Labs: 07/15/18 06:30 07/15/18 06:30 PT 11.0 SECONDS (9.4-12.5) 07/08/18 21:01 INR 0.97 07/08/18 21:01 APTT 26.1 Seconds (25.1-36.5) 07/08/18 21:01 Attending/Attestation - Attestation I have personally seen and examined this patient.: Yes I have fully participated in the care of the patient.: Yes I have reviewed all pertinent clinical information, including history, physical exam and plan: Yes Notes (Text): 07/15/18 13:46 52 year old male with past medical history of alcohol and substance abuse, hypertension, dyslipidemia, chronic pancreatitis and aortic dissection s/p repair who presented with complaint of slurred speech and right sided weakness (now resolved). At the time he was found to have hypoglycemia and alcohol intoxication. CT head, CTA H/N, MRI brain were negative for acute findings. Neurology has seen the patient and has signed off. He is on aspirin but not on statin secondary to elevated LFTs. PT is currently recommended ANTOINETTE. However patient wishes to be discharged home. Will request PT follow up for d/c recommendations now that patient is more alert. He is s/p banana bag and on tapering ativan sana/prn for alcohol withdrawal symptoms which have improved. He was counselled on alcohol cessation. He complained of abdominal pain and nausea which has improved, likely secondary to chronic pancreatitis. He is tolerating diet. LFTs are slowly improving. Will continue to monitor and hepatotoxic agents. Abdominal ultrasound showed fatty liver. He is on methadone. PT follow up requested for d/c planning. Felisha Copeland MD Hospitalist.
--- NOTE | 2018-07-16 16:41 | CP.PCM.DIS ---
Provider - Provider Date of Admission: 07/08/18 23:37 Attending physician: Felisha Copeland MD Consults: 07/08/18 20:42 Stroke Team Consult Stat Comment: Consulting Provider: Neurohospitalist Consulting Physician: NEUROHOMIKE Neurohospitalist for Consult: Jv Barr Neurohospitalist for Consult: Russel Matos Reason for Consult: tia/cva 07/09/18 00:22 Physician Consult Routine Comment: Consulting Provider: Russel Matos Consulting Physician: Russel Matos Reason for Consult: Code Stroke 07/11/18 10:51 Nursing Referral for Wound Care Routine Comment: Physician Instructions: Reason For Exam: skin Hospital Course - Lab Results Lab Results: Most Recent Lab Values WBC 5.6 10^3/uL (4.5-11.0) 07/15/18 06:30 RBC 4.12 10^6/uL (3.5-6.1) 07/15/18 06:30 Hgb 11.0 g/dL (14.0-18.0) L 07/15/18 06:30 Hct 32.1 % (42.0-52.0) L 07/15/18 06:30 MCV 77.9 fl (80.0-105.0) L 07/15/18 06:30 MCH 26.7 pg (25.0-35.0) 07/15/18 06:30 MCHC 34.3 g/dl (31.0-37.0) 07/15/18 06:30 RDW 14.5 % (11.5-14.5) 07/15/18 06:30 Plt Count 91 10^3/uL (120.0-450.0) L 07/15/18 06:30 MPV 11.3 fl (7.0-11.0) H 07/15/18 06:30 Gran % 48.5 % (50.0-68.0) L 07/15/18 06:30 Lymph % (Auto) 32.7 % (22.0-35.0) 07/15/18 06:30 [place] % (Auto) 14.6 % (1.0-6.0) H 07/15/18 06:30 Eos % (Auto) 3.8 % (1.5-5.0) 07/15/18 06:30 Baso % (Auto) 0.4 % (0.0-3.0) 07/15/18 06:30 Gran # 2.72 (1.4-6.5) 07/15/18 06:30 Lymph # (Auto) 1.8 (1.2-3.4) 07/15/18 06:30 [place] # (Auto) 0.8 (0.1-0.6) H 07/15/18 06:30 Eos # (Auto) 0.2 (0.0-0.7) 07/15/18 06:30 Baso # (Auto) 0.02 K/mm3 (0.0-2.0) 07/15/18 06:30 PT 11.0 SECONDS (9.4-12.5) 07/08/18 21:01 INR 0.97 07/08/18 21:01 APTT 26.1 Seconds (25.1-36.5) 07/08/18 21:01 Sodium 138 mmol/L (132-148) 07/15/18 06:30 Potassium 4.1 mmol/L (3.6-5.0) 07/15/18 06:30 Chloride 105 mmol/L (98-107) 07/15/18 06:30 Carbon Dioxide 29 mmol/L (21-33) 07/15/18 06:30 Anion Gap 9 (10-20) L 07/15/18 06:30 BUN 9 mg/dL (7-21) 07/15/18 06:30 Creatinine 0.7 mg/dl (0.8-1.5) L 07/15/18 06:30 Est GFR ( Amer) > 60 07/15/18 06:30 Est GFR (Non-Af Amer) > 60 07/15/18 06:30 POC Glucose (mg/dL) 71 mg/dL (65-110) 07/15/18 16:21 Random Glucose 74 mg/dL (70-110) 07/15/18 06:30 Hemoglobin A1c 4.9 % (4.2-6.5) 07/08/18 21:01 Calcium 9.2 mg/dL (8.4-10.5) 07/15/18 06:30 Phosphorus 2.6 mg/dL (2.5-4.5) 07/10/18 06:00 Magnesium 2.0 mg/dL (1.7-2.2) 07/10/18 06:00 Total Bilirubin 0.2 mg/dL (0.2-1.3) 07/15/18 06:30 AST 105 U/L (17-59) H D 07/15/18 06:30 ALT 100 U/L (7-56) H 07/15/18 06:30 Alkaline Phosphatase 75 U/L (38-126) 07/15/18 06:30 Lactate Dehydrogenase 499 U/L (333-699) 07/09/18 16:49 Total Creatine Kinase 94 U/L (35-230) 07/09/18 16:49 Troponin I 0.02 ng/mL D 07/09/18 16:49 Total Protein 6.2 g/dL (5.8-8.3) 07/15/18 06:30 Albumin 3.2 g/dL (3.0-4.8) 07/15/18 06:30 Globulin 3.0 gm/dL 07/15/18 06:30 Albumin/Globulin Ratio 1.0 (1.1-1.8) L 07/15/18 06:30 Triglycerides 94 mg/dL (35-160) 07/08/18 21:01 Cholesterol 211 mg/dL (130-200) H 07/08/18 21:01 LDL Cholesterol Direct 61 mg/dL (0-129) 07/08/18 21:01 HDL Cholesterol 130 mg/dL (29-60) H 07/08/18 21:01 Lipase 590 U/L (23-300) H 07/08/18 21:01 Urine Opiates Screen Negative (NEGATIVE) 07/09/18 21:42 Urine Methadone Screen Positive (NEGATIVE) H 07/09/18 21:42 Ur Barbiturates Screen Negative (NEGATIVE) 07/09/18 21:42 Ur Phencyclidine Scrn Negative (NEGATIVE) 07/09/18 21:42 Ur Amphetamines Screen Negative (NEGATIVE) 07/09/18 21:42 U Benzodiazepines Scrn Negative (NEGATIVE) 07/09/18 21:42 U Oth Cocaine Metabols Negative (NEGATIVE) 07/09/18 21:42 U Cannabinoids Screen Negative (NEGATIVE) 07/09/18 21:42 Alcohol, Quantitative 228 mg/dL (0-10) H 07/08/18 21:01 Blood Type A POSITIVE 07/09/18 05:40 Antibody Screen Negative 07/09/18 05:40 BBK History Checked Patient has bt 07/09/18 05:40 Discharge Exam - Head Exam Head Exam: ATRAUMATIC, NORMAL INSPECTION, NORMOCEPHALIC Discharge Plan - Follow Up Plan Condition: STABLE Disposition: AGAINST MEDICAL ADVICE
== END 2018-07-15 21:14 | disposition left against medical advice (07) | DRG 296 ==
LOC: ED 20:39 → ERH 23:37 → 2RNO 07-09 01:17 → 5RNO 07-15 16:23
PROVIDERS: ADMIT Internal Medicine; ATTEND Internal Medicine
DX: E16.2 Hypoglycemia, unspecified (principal); F10.239 Alcohol dependence with withdrawal, unspecified; F10.229 Alcohol dependence with intoxication, unspecified; K86.1 Other chronic pancreatitis; I10 Essential (primary) hypertension; E78.5 Hyperlipidemia, unspecified; D50.9 Iron deficiency anemia, unspecified; K21.9 Gastro-esophageal reflux disease without esophagitis; F17.210 Nicotine dependence, cigarettes, uncomplicated; Z78.1 Physical restraint status